=== PATIENT | male | born 1940 | race Caucasian/White ===

== ENCOUNTER 2020-03-07 11:43 | Outpatient (REF) | payer MEDICARE, SELFPAY | END 2020-03-07 11:44 | disposition home or self-care (01) | LOC: HO.LAB 11:43 | PROVIDERS: PCP Internal Medicine; Visit Provider Internal Medicine | DX: Z20.828 Contact with and (suspected) exposure to other viral communicable diseases (principal) | CPT/HCPCS: C9803; U0003 ==

== ENCOUNTER → 2020-03-17 12:55 | Outpatient (BNVA) | payer MEDICARE, SELFPAY | PROVIDERS: Visit Provider Internal Medicine Gastroenterology | DX: D50.9 Iron deficiency anemia, unspecified (principal) | CPT/HCPCS: Q3014 ==

== ENCOUNTER 2020-06-08 09:09 | Outpatient (RCR) | payer MEDICARE, SELFPAY ==
--- NOTE | ~2020-06-08 | XR_ITS ---
EXAMINATION: XR CALCANEUS, LEFT CLINICAL INFORMATION: Nonhealing wounds. COMPARISON: None TECHNIQUE: Lateral and axial views of the left calcaneus were obtained. FINDINGS: The bones and soft tissues are normal. No fracture. Alignment is anatomic. Joint spaces are maintained. No enthesopathic spurs are evident at the calcaneus. No bony erosive changes. There is vascular calcification. XR/XR calcaneus LT min 2V IMPRESSION: Unremarkable calcaneus with no bony erosive changes. The soft tissues are normal except for vascular calcification.
[2020-07-11 13:11] LABS: MANUAL DIFF FLAG NO
[2020-07-11 13:16] LABS: Basophils Absolute Auto 0.1 X10*3/uL (0.0-0.2); Basophils Percent Auto 0.6 % (0-2); Eosinophils Absolute Auto 0.3 X10*3/uL (0.0-0.4); Eosinophils Percent Auto 2.7 % (0-4); Hematocrit 35.7 % (42-52); Hemoglobin 11.3 g/dl (14.0-18.0); Imm Gran Abs Auto 0.05 X10*3/uL (0.00-0.03); Imm Gran Pct Auto 0.5 % (0.0-0.4); Lymphocytes Absolute Auto 1.2 X10*3/uL (1.2-4.9); Mean Corpuscular HGB Conc 31.7 g/dl (31.0-36.0); Mean Corpuscular Hemoglobin 28.7 pg (27.0-33.0); Mean Corpuscular Volume 90.6 fL (80-98); Mean Platelet Volume 9.8 fL (9.4-12.4); Monocytes Absolute Auto 0.7 X10*3/uL (0.1-1.2); Monocytes Percent Auto 7.8 % (2-11); Neutrophils Percent Auto 75.4 % (45-73); Platelet Count 333 X10*3/uL (160-400); Red Blood Count 3.94 X10*6/uL (4.60-5.80); Red Cell Distribution Width 14.6 % (11.0-16.0); White Blood Count 9.3 X10*3/uL (4.8-10.8)
[2020-07-11 13:38] LABS: Estimated Average Glucose 128 mg/dL; Hemoglobin A1c % 6.1 %
[2020-07-11 13:47] LABS: Anion Gap 13 (12-20); Blood Urea Nitrogen 16 mg/dL (9-16); C Reactive Protein 3.16 mg/dL (< or = 0.50); Carbon Dioxide 25 mmol/L (22-29); Chloride 105 mmol/L (96-108); Estimated Glomerular Filt Rate > 60; Glucose Random 209 mg/dL (60-115); Potassium 4.1 mmol/L (3.3-5.1); Sodium 139 mmol/L (135-145)
[2020-07-11 14:17] LABS: Erythrocyte Sedimentation Rate 77 MM/HR (0-15)
[2020-09-26 14:59] LABS: MANUAL DIFF FLAG NO
[2020-09-26 15:06] LABS: Basophils Absolute Auto 0.1 X10*3/uL (0.0-0.2); Basophils Percent Auto 0.7 % (0-2); Eosinophils Absolute Auto 0.3 X10*3/uL (0.0-0.4); Eosinophils Percent Auto 2.6 % (0-4); Hemoglobin 10.2 g/dl (14.0-18.0); Imm Gran Abs Auto 0.11 X10*3/uL (0.00-0.03); Imm Gran Pct Auto 0.9 % (0.0-0.4); Lymphocytes Absolute Auto 1.8 X10*3/uL (1.2-4.9); Lymphocytes Percent Auto 15.9 % (20-40); Mean Corpuscular HGB Conc 31.9 g/dl (31.0-36.0); Mean Corpuscular Hemoglobin 27.7 pg (27.0-33.0); Mean Platelet Volume 9.9 fL (9.4-12.4); Monocytes Absolute Auto 0.8 X10*3/uL (0.1-1.2); Monocytes Percent Auto 7.1 % (2-11); Neutrophils Absolute Auto 8.4 X10*3/uL (2.0-8.3); Neutrophils Percent Auto 72.8 % (45-73); Platelet Count 410 X10*3/uL (160-400); Red Blood Count 3.68 X10*6/uL (4.60-5.80); Red Cell Distribution Width 15.8 % (11.0-16.0); White Blood Count 11.6 X10*3/uL (4.8-10.8)
[2020-09-26 15:14] LABS: Estimated Average Glucose 137 mg/dL; Hemoglobin A1c % 6.4 %
[2020-09-26 15:33] LABS: Anion Gap 14 (12-20); Blood Urea Nitrogen 21 mg/dL (9-16); C Reactive Protein 3.26 mg/dL (< or = 0.50); Calcium 9.3 mg/dL (8.4-10.2); Carbon Dioxide 26 mmol/L (22-29); Chloride 106 mmol/L (96-108); Estimated Glomerular Filt Rate 55; Glucose Random 118 mg/dL (60-115); Potassium 4.7 mmol/L (3.3-5.1); Sodium 141 mmol/L (135-145)
[2020-09-26 15:40] LABS: Erythrocyte Sedimentation Rate 75 MM/HR (0-15)
== END 2021-01-23 16:07 | disposition home or self-care (01) ==
LOC: HO.WCC 09:09
PROVIDERS: Referring Provider Physician Assistant; Visit Provider Surgery
DX: Z09 Encounter for follow-up examination after completed treatment for conditions other than malignant neoplasm (principal); E11.22 Type 2 diabetes mellitus with diabetic chronic kidney disease; I12.9 Hypertensive chronic kidney disease with stage 1 through stage 4 chronic kidney disease, or unspecified chronic kidney disease; N18.30 Chronic kidney disease, stage 3 unspecified; Z87.891 Personal history of nicotine dependence; Z95.0 Presence of cardiac pacemaker; Z86.31 Personal history of diabetic foot ulcer
CPT/HCPCS: 11042; 11043; 11044; 36415; 73650; 80048; 83036; 84134; 85025; 85652; 86140; 87071; 87077; 87186; 87205; 88304; 88311; 97597; 97605; 99202; 99212; 99214

== ENCOUNTER 2020-06-11 08:18 | Inpatient (IN) | payer MEDICARE, SELFPAY ==
--- NOTE | ~2020-06-11 | NM_ITS ---
EXAMINATION: RENAL DYNAMIC IMAGING STUDY WITH LASIX CLINICAL INFORMATION: Left hydronephrosis. COMPARISON: No previous radionuclide renal scan is available for comparison. The diagnostic CT scan of the abdomen and pelvis, dated 06/12/2020, is available for comparison. TECHNIQUE: Serial gamma scintillation camera images were obtained over the posterior trunk during the initial transit and subsequent distribution of a bolus intravenous injection of 10 mCi of Tc-99m DTPA. At 4029 minutes later, 40 mg of Lasix was administered intravenously and an additional 30 minutes of images obtained. FINDINGS: Initial rapid sequence images show prompt, but mildly diminished perfusion to both kidneys as evidenced by significantly less intense activity in the kidneys, compared to the spleen. Subsequent sequential static images obtained up to 30 minutes show fair to good concentration bilaterally. There is a moderate medullary void present in the mid left kidney and this does not appear to show excretory activity at any time during the study. Excretory activity is visualized superior and inferior to this, likely calyceal in location. Excretory activity is visualized bilaterally by 3 to 4 minutes post injection. Following Lasix administration, there is continued clearance of activity from both renal collecting systems. At the end of the study there is almost no activity in either renal collecting system. There is almost no activity in the urinary bladder also, likely due to drainage via a Cao catheter which is visible on the CT scan performed on 06/12/2020, 1 day prior to this study. The T-1/2 washout times following Lasix administration are: Left 6.2 minutes and right 8.8 minutes. The relative function of the two kidneys based on the 2-3 minute images are: Left 48% and right 52%. NM/NM renal flow w pharm int IMPRESSION: LEFT KIDNEY: Mildly diminished perfusion and function. A medullary void is present within this kidney which does not show excretory activity, with excretory activity in adjacent calyces superior and inferior to the void. The findings suggest that this may represent a large peripelvic cyst rather than hydronephrosis. It is unusual for the entire renal collecting system not to communicate, and it is therefore an unusual finding on this study if there is calyceal activity that does not flow into a dilated renal pelvis. These findings could be further characterized with a CT urogram, if clinically indicated. RIGHT KIDNEY: Mildly diminished perfusion and function. No hydronephrosis or outflow obstruction is present.
--- NOTE | ~2020-06-11 | XR_ITS ---
EXAMINATION: XR CHEST CLINICAL INFORMATION: Cough COMPARISON: Chest x-ray 05/07/2019 TECHNIQUE: Frontal view of the chest was obtained. FINDINGS: Cardiac silhouette is normal in size. Lungs are adequately aerated. No lobar consolidation. No pleural effusion or pneumothorax. Degenerative changes of the spine. XR/XR chest 1V IMPRESSION: Stable examination demonstrating no acute pulmonary pathology.
--- NOTE | ~2020-06-11 | CT_ITS ---
EXAMINATION: CT ABDOMEN AND PELVIS WITH CONTRAST CLINICAL INFORMATION: Gram-negative bacteria COMPARISON: None TECHNIQUE: Multidetector volumetric images were obtained from the superior aspect of the liver through the pubic symphysis following administration of 75 mL of Omnipaque 350 intravenous contrast. Sagittal and coronal reformatted images were obtained on the technologist's workstation. Oral contrast: No This CT examination was performed using dose optimization techniques as appropriate, variously including the following: *Automated exposure control *Adjustment of mA and/or kV according to patient size (this includes techniques or standardized protocols for targeted exams where dose is matched to indication/reason for exam; i.e. extremities or head) *Use of iterative reconstruction technique DLP: 611 mGy-cm FINDINGS: LUNG BASES: Coronary artery calcification. Atelectasis. No focal consolidation. No pleural effusion or pneumothorax. LIVER, GALLBLADDER, AND BILIARY TREE: There is a nodular hepatic contour consistent with cirrhosis. No suspicious focal liver lesion. The gallbladder is unremarkable with no evidence of radiopaque gallstones, gallbladder wall thickening, or obvious pericholecystic inflammatory changes. Small volume of ascites is present. PANCREAS: Diffuse pancreatic atrophy. No mass or peripancreatic inflammatory changes. SPLEEN: Splenomegaly, up to 16 cm anterior to posterior. No focal lesion seen. ADRENAL GLANDS: Unremarkable. KIDNEYS AND URETERS: Water density bilateral renal cysts are seen; no imaging follow-up recommended. There is severe left hydronephrosis though the left ureter is nondilated, suggesting a ureteropelvic junction obstruction. BLADDER: Cao catheter in a decompressed urinary bladder. GASTROINTESTINAL TRACT: Stomach and small bowel are nondilated. No right lower quadrant inflammatory changes to suggest appendicitis. There is a large volume of stool throughout the colon. There is a very large volume of stool in the rectum with perirectal wall thickening and subtle perirectal fat stranding. No findings to suggest colitis or diverticulitis. ABDOMINAL WALL: There is a small amount of fat in the inguinal canals bilaterally. LYMPH NODES: Normal. VASCULAR: Circumferential calcified atherosclerotic changes of the aorta. Portal veins and superior mesenteric vein enhance normally. There are esophageal, gastric, and splenic varices. PELVIC VISCERA: Normal prostate. OSSEOUS STRUCTURES: Severe multilevel degenerative changes of the thoracolumbar spine. There is an X-Stop device between the posterior spinous processes of L3-L4. There are degenerative changes of the sacroiliac joints. Left hip arthroplasty. CT/CT abdomen pelvis w con IMPRESSION: There is a large volume of stool throughout the colon suggesting constipation. There is a very large volume of stool in the rectum with perirectal wall thickening and subtle perirectal fat stranding suggesting stercoral colitis. There is a nodular hepatic contour consistent with cirrhosis. Small volume of ascites is present. There is splenomegaly and varices consistent with portal hypertension. Severe left hydronephrosis with an appearance suggesting a left ureteropelvic junction obstruction.
[2020-06-11 08:21] VITALS: BP 120/69; PULSE 120; RESP 16; TEMP 36.3; O2SAT 100; BMI 24.6
--- NOTE | 2020-06-11 08:49 | ED.MALEGU ---
HPI - Male Genitourinary General Chief complaint: Urogenital-Male Stated complaint: cath issues Time Seen by Provider: 06/11/20 08:39 History of Present Illness HPI Narrative: This is a 79 years old male presented to the emergency department with the catheter problem. He states that the catheter was changed yesterday by RN he since then he has been bleeding unable to void completely. Patient denies any fever, vomiting diarrhea. He has history of diabetes and BPH Related Data Home Medications Medication Instructions Recorded Confirmed metoprolol tartrate 25 mg tablet 25 mg PO BID 03/17/20 03/17/20 simvastatin 40 mg tablet 40 mg PO QPM 03/17/20 03/17/20 Augmentin 875,125 mg PO BID 06/11/20 06/11/20 Colace 100 mg PO PRN 06/11/20 Nexium 24HR 06/11/20 cyclobenzaprine 1 tab PO TID 06/11/20 06/11/20 dulaglutide [Trulicity] 0.5 ml SUBCUT QWEEK 06/11/20 06/11/20 glipizide 2.5 mg PO BID 06/11/20 06/11/20 senna 8.6 mg PO PRN 06/11/20 Allergies Allergy/AdvReac Type Severity Reaction Status Date / Time lisinopril [LISINOPRIL] Allergy Severe ANGIOEDEMA Verified 06/11/20 08:21 Review of Systems Review of Systems: Yes all other systems are reviewed and are negative [facility] Past Medical History Medical History (Updated 06/11/20 @ 16:05 by Darien Castillo MD) Diabetes Hyperlipidemia Hypertension Iron deficiency anemia Urinary retention Surgical History History of back surgery History of esophagogastroduodenoscopy History of left hip replacement Hx of colonoscopy Social History Social History Alcohol intake: never Smoking Status: Former smoker Tobacco Type: Cigarette Use of substances other than those prescribed or required for medical reasons: No Advance Directives: No Advance Directives Information Provided: Yes Physical Exam Vital Signs: Vital Signs: Last Vital Signs Temp 98.0 F 06/11/20 11:33 Pulse 111 H 06/11/20 11:33 Resp 18 06/11/20 11:33 BP 150/84 H 06/11/20 11:33 Pulse Ox 99 06/11/20 11:33 Body Mass Index 24.6 Const: General: cooperative, comfortable and no acute distress Orientation/consciousness: oriented to person, oriented to place and oriented to time HENMT: Head: Yes normal to inspection Ears: external ears normal General nose exam: Normal external nose present Face and sinus: Yes normal facial exam Mouth: Normal oral and palatal mucosa present Eyes: General: appearance normal, both eyes and all related structures Neck: Neck: Yes normal visual inspection and Yes full ROM Chest: Chest palpation & inspection: normal inspection of the chest and normal palpation of entire chest wall Resp: Effort & Inspection: normal respiratory effort Auscultation: clear to auscultation bilaterally Cardio: Rate: regular rate GI: Other: Soft no tenderness no guarding Inspection: Yes normal to inspection : Other: A catheter is in place there is blood in the bag, 16 Prydeinig Skin: General skin exam: elasticity normal and turgor normal Neuro: General: oriented to person, oriented to place and oriented to time Extrem: General: Yes normal to inspection, Yes full ROM and Yes capillary refill normal Course Reevaluation(s) Reevaluation #1: At this time the patient is doing much better, catheter was changed by RN, a 16 Prydeinig catheter was inserted 100 the patient was in urinary retention we will obtain more than 1 L of urine, the urine was clear. Anticipate discharge of the patient as well as the labs are back Reevaluation #2: Lab returned WBC elevated 21.6k, at this point I think it is reasonable to admit the patient for observation given the fact that the he is diabetic and given the fact that the is a 79 years old the with the recent manipulation with a urinary tract MDM - Male Genitourinary Lab Data Result diagrams: 06/11/20 09:09 06/11/20 09:09 Labs: Lab Results 06/11/20 06/11/20 06/11/20 Range/Units 09:09 09:09 09:09 WBC 21.6 H (4.8-10.8) X10*3/uL RBC 4.06 L (4.60-5.80) X10*6/uL Hgb 11.9 L (14.0-18.0) g/dl Hct 36.1 L (42-52) % MCV 88.9 (80-98) fL MCH 29.3 (27.0-33.0) pg MCHC 33.0 (31.0-36.0) g/dl RDW 14.6 (11.0-16.0) % Plt Count 546 H (160-400) X10*3/uL MPV 9.2 L (9.4-12.4) fL Immature Gran % (Auto) 0.6 H (0.0-0.4) % Neut % (Auto) 91.0 H (45-73) % Lymph % (Auto) 3.2 L (20-40) % [place] % (Auto) 4.9 (2-11) % Eos % (Auto) 0.1 (0-4) % Baso % (Auto) 0.2 (0-2) % Lymph # (Auto) 0.7 L (1.2-4.9) X10*3/uL [place] # (Auto) 1.1 (0.1-1.2) X10*3/uL Eos # (Auto) 0.0 (0.0-0.4) X10*3/uL Baso # (Auto) 0.1 (0.0-0.2) X10*3/uL Abs Immat Gran (auto) 0.13 H (0.00-0.03) X10*3/uL Absolute Neuts (auto) 19.6 H (2.0-8.3) X10*3/uL Absolute Nucleated RBC 0.000 (0.0-0.012) X10*3/uL Nucleated RBC % (auto) 0.0 (0.0-0.2) /100WBC Smear Tech's Comments VERIFIED PT 13.9 H (10.8-13.0) SEC INR 1.2 H (0.9-1.1) APTT 34.4 (24.1-38.0) SEC Sodium 131 L (135-145) mmol/L Potassium 4.2 (3.3-5.1) mmol/L Chloride 96 (96-108) mmol/L Carbon Dioxide 20 L (22-29) mmol/L Anion Gap 19 (12-20) BUN 34 H (9-16) mg/dL Creatinine 1.47 H (0.5-1.4) mg/dL Estim Creat Clear Calc 41.4 Estimated GFR 46 Random Glucose 273 H (60-115) mg/dL Lactic Acid (0.5-2.0) mmol/L Calcium 8.9 (8.4-10.2) mg/dL Total Bilirubin 1.0 (0.0-1.0) mg/dL AST 29 (5-37) U/L ALT 26 (0-40) U/L Alkaline Phosphatase 146 H (39-117) U/L Total Protein 6.1 L (6.5-8.0) g/dL Albumin 3.0 L (3.5-5.0) g/dL Urine Color Urine Appearance Urine pH (5.0-8.0) Ur Specific [place] (1.005-1.025) Urine Protein (NEG-TRACE) MG/DL Urine Glucose (UA) (NEG) MG/DL Urine Ketones (NEG) MG/DL Urine Blood (NEG) Urine Nitrite (NEG) Ur Leukocyte Esterase (NEG) Urine RBC (0) /HPF Urine WBC (0-4) /HPF Ur Squamous Epith Cells /LPF Urine Bacteria /LPF 06/11/20 06/11/20 Range/Units 09:11 09:57 WBC (4.8-10.8) X10*3/uL RBC (4.60-5.80) X10*6/uL Hgb (14.0-18.0) g/dl Hct (42-52) % MCV (80-98) fL MCH (27.0-33.0) pg MCHC (31.0-36.0) g/dl RDW (11.0-16.0) % Plt Count (160-400) X10*3/uL MPV (9.4-12.4) fL Immature Gran % (Auto) (0.0-0.4) % Neut % (Auto) (45-73) % Lymph % (Auto) (20-40) % [place] % (Auto) (2-11) % Eos % (Auto) (0-4) % Baso % (Auto) (0-2) % Lymph # (Auto) (1.2-4.9) X10*3/uL [place] # (Auto) (0.1-1.2) X10*3/uL Eos # (Auto) (0.0-0.4) X10*3/uL Baso # (Auto) (0.0-0.2) X10*3/uL Abs Immat Gran (auto) (0.00-0.03) X10*3/uL Absolute Neuts (auto) (2.0-8.3) X10*3/uL Absolute Nucleated RBC (0.0-0.012) X10*3/uL Nucleated RBC % (auto) (0.0-0.2) /100WBC Smear Tech's Comments PT (10.8-13.0) SEC INR (0.9-1.1) APTT (24.1-38.0) SEC Sodium (135-145) mmol/L Potassium (3.3-5.1) mmol/L Chloride (96-108) mmol/L Carbon Dioxide (22-29) mmol/L Anion Gap (12-20) BUN (9-16) mg/dL Creatinine (0.5-1.4) mg/dL Estim Creat Clear Calc Estimated GFR Random Glucose (60-115) mg/dL Lactic Acid 1.9 (0.5-2.0) mmol/L Calcium (8.4-10.2) mg/dL Total Bilirubin (0.0-1.0) mg/dL AST (5-37) U/L ALT (0-40) U/L Alkaline Phosphatase (39-117) U/L Total Protein (6.5-8.0) g/dL Albumin (3.5-5.0) g/dL Urine Color BROWN Urine Appearance HAZY Urine pH 7.0 (5.0-8.0) Ur Specific [place] 1.015 (1.005-1.025) Urine Protein 2+ H (NEG-TRACE) MG/DL Urine Glucose (UA) NEG (NEG) MG/DL Urine Ketones NEG (NEG) MG/DL Urine Blood 3+ H (NEG) Urine Nitrite NEG (NEG) Ur Leukocyte Esterase 2+ H (NEG) Urine RBC TNTC H (0) /HPF Urine WBC 50-75 H (0-4) /HPF Ur Squamous Epith Cells NONE /LPF Urine Bacteria NONE /LPF Discharge Plan Discharge Clinical Impression: Acute UTI, Cao catheter problem Patient Disposition: Admitted As Inpatient
[2020-06-11 09:26] LABS: Basophils Absolute Auto 0.1 X10*3/uL (0.0-0.2); Basophils Percent Auto 0.2 % (0-2); Eosinophils Percent Auto 0.1 % (0-4); Hematocrit 36.1 % (42-52); Hemoglobin 11.9 g/dl (14.0-18.0); Imm Gran Abs Auto 0.13 X10*3/uL (0.00-0.03); Imm Gran Pct Auto 0.6 % (0.0-0.4); Lymphocytes Absolute Auto 0.7 X10*3/uL (1.2-4.9); Lymphocytes Percent Auto 3.2 % (20-40); MANUAL DIFF FLAG SCAN; Mean Corpuscular Hemoglobin 29.3 pg (27.0-33.0); Mean Corpuscular Volume 88.9 fL (80-98); Mean Platelet Volume 9.2 fL (9.4-12.4); Monocytes Absolute Auto 1.1 X10*3/uL (0.1-1.2); Monocytes Percent Auto 4.9 % (2-11); Neutrophils Absolute Auto 19.6 X10*3/uL (2.0-8.3); Platelet Count 546 X10*3/uL (160-400); Red Blood Count 4.06 X10*6/uL (4.60-5.80); Red Cell Distribution Width 14.6 % (11.0-16.0); SCAN SMEAR FLAG 1; White Blood Count 21.6 X10*3/uL (4.8-10.8)
[2020-06-11 09:32] LABS: INTERNATIONAL NORM RATIO 1.2 (0.9-1.1); Prothrombin Time 13.9 SEC (10.8-13.0)
[2020-06-11 09:33] LABS: Glucose Urine UA NEG (NEG); Leukocyte Esterase Urine 2+ (NEG); Nitrite Urine NEG (NEG); Specific Gravity - Urine 1.015 (1.005-1.025); Urine Blood 3+ (NEG); Urine Ketones NEG (NEG); Urine Protein 2+ MG/DL (NEG-TRACE)
[2020-06-11 09:35] LABS: Partial Thromboplastin Time 34.4 SEC (24.1-38.0)
[2020-06-11] MEDS: Lidocaine HCl 2 % Urojet 10 ML JEL.PF.APP TOPICAL (09:35)
[2020-06-11 09:36] VITALS: BP 112/68; PULSE 112; RESP 17; TEMP 36.6; O2SAT 99
[2020-06-11 09:39] LABS: Appearance Urine HAZY; Color Urine BROWN
[2020-06-11 09:44] LABS: WBC Urine 50-75 /HPF (0-4)
[2020-06-11 09:45] LABS: RBC Urine TNTC /HPF (0)
[2020-06-11 09:48] LABS: Alanine Aminotransferase 26 U/L (0-40); Alkaline Phosphatase 146 U/L (39-117); Anion Gap 19 (12-20); Aspartate Amino Transferase 29 U/L (5-37); Blood Urea Nitrogen 34 mg/dL (9-16); Calcium 8.9 mg/dL (8.4-10.2); Carbon Dioxide 20 mmol/L (22-29); Chloride 96 mmol/L (96-108); Creatinine Clr Calc Pharmacy 41.4; Estimated Glomerular Filt Rate 46; Glucose Random 273 mg/dL (60-115); Potassium 4.2 mmol/L (3.3-5.1); Sodium 131 mmol/L (135-145); Total Protein 6.1 g/dL (6.5-8.0)
[2020-06-11 09:53] LABS: SLIDE REVIEW VERIFIED
[2020-06-11] MEDS: 0.9 % Sodium Chloride 1,000 ML 999 ML IVCONT (10:13)
[2020-06-11] MEDS: cefTRIAXone sodium 1 GM in 0.9 % Sodium Chloride 50 ML IV (10:44)
[2020-06-11 10:45] LABS: Lactic Acid 1.9 mmol/L (0.5-2.0)
[2020-06-11 10:46] VITALS: BP 152/87; PULSE 107; RESP 19; O2SAT 100
--- NOTE | 2020-06-11 10:48 | PC.NURSE ---
pt has wound on l foot for a few weeks, has seen wound care for this, does not appear infected
--- NOTE | 2020-06-11 11:19 | P.HPHOSP_ITS ---
History of Present Illness Date of Service: 06/11/20 Chief Complaint: hematuria This is a 79-year-old male with past medical history of hypertension, diabetes, hyperlipidemia, urinary retention secondary to COVID-19 infection and hospitalization status post chronic Cao presents to the hospital with complaints of hematuria and significant pain about 10/10, difficult to sleep due to the pain at Cao cath insertion. Patient reports that he has had a Cao catheter in place since falling L to COVID-19 about 3-4 months ago, he developed urinary retention and has had this cough Cao catheter. Yesterday and nurse came to his house change the Cao catheter and ever since change in his folic catheter he has not been able to urinate had significant pain, and was bleeding without evidence of urine. He denies having had any symptoms prior to this, no hematuria prior to the change of the Cao catheter, no abdominal pain, no shortness of breath or chest pain, no fever or chills, no confusion, no lower extremity edema. Patient reports that he was in good health prior to the go Cao catheter being changed yesterday. On arrival to the ED patient's vitals are significant for temp of 97.4?, heart rate of 120, respiratory rate of 16, blood pressure 120/69, satting 100% on room air. Labs are significant for CBC of 21, hemoglobin of 11.9 which is improved from previous, hematocrit 36.1, platelet of 546, PT of 13.9, INR of 1.2, sodium of 131, BUN of 34, creatinine of 1.47 which is increased from 1. 04 in April, UA positive for leukocyte Estrace, blood, urine WBC. His urinary catheter was replaced in the ED he is now feeling significant relief, with pain resolving. Past medical history is confirm with patient is as below Review of Systems Review of Systems: Yes all other systems are reviewed and are negative [facility] Medical History (Updated 06/11/20 @ 11:34 by Fabiana Kimbrough MD) Diabetes Hyperlipidemia Hypertension Iron deficiency anemia Urinary retention Pertinent family history: Significant for cancer in brother Surgical History History of back surgery History of esophagogastroduodenoscopy History of left hip replacement Hx of colonoscopy Social History Alcohol intake: never Smoking Status: Former smoker Tobacco Type: Cigarette Use of substances other than those prescribed or required for medical reasons: No Advance Directives: No Advance Directives Information Provided: Yes Meds Allergies Allergy/AdvReac Type Severity Reaction Status Date / Time lisinopril [LISINOPRIL] Allergy Severe ANGIOEDEMA Verified 06/11/20 08:21 Home Medications Medication Instructions Recorded Confirmed Last Taken Type metoprolol tartrate 25 mg tablet 25 mg PO BID 03/17/20 03/17/20 06/10/20 History simvastatin 40 mg tablet 40 mg PO QPM 03/17/20 03/17/20 06/10/20 History Augmentin 875,125 mg PO BID 06/11/20 06/11/20 06/10/20 History Colace 100 mg PO PRN 06/11/20 Unknown History Nexium 24HR 06/11/20 06/10/20 History cyclobenzaprine 1 tab PO TID 06/11/20 06/11/20 06/10/20 History dulaglutide [Trulicity] 0.5 ml SUBCUT QWEEK 06/11/20 06/11/20 06/05/20 History glipizide 2.5 mg PO BID 06/11/20 06/11/20 06/10/20 History senna 8.6 mg PO PRN 06/11/20 Unknown History Physical Exam Vital Signs and Narrative: Vital Signs: Last Vital Signs Temp 98 F 06/11/20 09:36 Pulse 107 H 06/11/20 10:46 Resp 19 06/11/20 10:46 BP 152/87 H 06/11/20 10:46 Pulse Ox 100 06/11/20 10:46 Body Mass Index 24.6 Const: General: cooperative and no acute distress Orientat ion/consciousness: patient oriented x3 Eyes: General: appearance normal, both eyes and all related structures Resp: Effort & Inspection: normal respiratory effort and able to speak in complete sentences Cardio: Rate: regular rate Rhythm: regular rhythm GI: Palpation (GI): Soft to palpation Auscultation: normal bowel sounds : Other: Cao catheter bag with bloody urine, no suprapubic pain, no flank pain Skin: General skin exam: no rashes or lesions noted Neuro: General: patient oriented x3 Cognition (Neuro): normal cognition Extrem: General: Yes normal to inspection and Yes no pedal edema Results Labs CBC and Chem 7: 06/11/20 09:09 06/11/20 09:09 Labs: Laboratory Results - last 24 hr 06/11/20 06/11/20 06/11/20 09:09 09:09 09:09 MCV 88.9 MCH 29.3 MCHC 33.0 RDW 14.6 Plt Count 546 H MPV 9.2 L Immature Gran % (Auto) 0.6 H Neut % (Auto) 91.0 H Lymph % (Auto) 3.2 L [place] % (Auto) 4.9 Eos % (Auto) 0.1 Baso % (Auto) 0.2 Lymph # (Auto) 0.7 L [place] # (Auto) 1.1 Eos # (Auto) 0.0 Baso # (Auto) 0.1 Abs Immat Gran (auto) 0.13 H Absolute Neuts (auto) 19.6 H Absolute Nucleated RBC 0.000 Nucleated RBC % (auto) 0.0 Smear Tech's Comments VERIFIED PT 13.9 H INR 1.2 H APTT 34.4 Anion Gap 19 Estim Creat Clear Calc 41.4 Estimated GFR 46 Random Glucose 273 H Lactic Acid Calcium 8.9 Total Bilirubin 1.0 AST 29 ALT 26 Alkaline Phosphatase 146 H Total Protein 6.1 L Albumin 3.0 L Urine Color Urine Appearance Urine pH Ur Specific [place] Urine Protein Urine Glucose (UA) Urine Ketones Urine Blood Urine Nitrite Ur Leukocyte Esterase Urine RBC Urine WBC Ur Squamous Epith Cells Urine Bacteria 06/11/20 06/11/20 09:11 09:57 MCV MCH MCHC RDW Plt Count MPV Immature Gran % (Auto) Neut % (Auto) Lymph % (Auto) [place] % (Auto) Eos % (Auto) Baso % (Auto) Lymph # (Auto) [place] # (Auto) Eos # (Auto) Baso # (Auto) Abs Immat Gran (auto) Absolute Neuts (auto) Absolute Nucleated RBC Nucleated RBC % (auto) Smear Tech's Comments PT INR APTT Anion Gap Estim Creat Clear Calc Estimated GFR Random Glucose Lactic Acid 1.9 Calcium Total Bilirubin AST ALT Alkaline Phosphatase Total Protein Albumin Urine Color BROWN Urine Appearance HAZY Urine pH 7.0 Ur Specific [place] 1.015 Urine Protein 2+ H Urine Glucose (UA) NEG Urine Ketones NEG Urine Blood 3+ H Urine Nitrite NEG Ur Leukocyte Esterase 2+ H Urine RBC TNTC H Urine WBC 50-75 H Ur Squamous Epith Cells NONE Urine Bacteria NONE Imaging Radiologist's Impressions: Impressions Chest X-Ray 06/11/20 09:48 IMPRESSION: Stable examination demonstrating no acute pulmonary pathology. Assessment and Plan (1) Hematuria: Status: Acute (2) Acute UTI: Status: Acute (3) Hypertension: Status: Inactive (4) Hyperlipidemia: Status: Inactive (5) Diabetes mellitus: Status: Acute (6) DEON (acute kidney injury): Status: Acute This is a 79-year-old male with history of urinary retention status post Cao catheter who presents to the hospital after experiencing pain, urinary tension, and bloody urine output after the Cao catheter was changed. # hematuria - most likely traumatic due to Cao insertion - hemodynamically stable with no significant change in hemoglobin hematocrit - hematuria resolved after the Cao catheter was replaced in the ED - no longer is having any pain Plan: - continue to monitor H&H - if continues to have hematuria consider consulting urology -IV fluids # UTI - possibly secondary to instrumentation with Cao catheter - has leukocytosis, tachycardia - will start him on ceftriaxone IV - follow blood and urine cultures # DEON - possibly secondary urinary tension, and UTI - will start him on IV fluids - follow BMP # diabetes - low-dose sliding scale insulin - diabetic diet # HTN - elevated - pending medication or consolidation # HLD - continue statin DVT prophylaxis: SCDs
--- NOTE | 2020-06-11 11:31 | PC.NURSE ---
covid swab performed, loya emptied 1800ml hematuria noted
[2020-06-11 11:33] VITALS: BP 150/84; PULSE 111; RESP 18; TEMP 36.7; O2SAT 99
[2020-06-11 11:40] LABS: Glucose, Whole Blood 195 mg/dL (60-115)
[2020-06-11 11:57] LABS: COVID-19 Test Negative (Negative); IDNOW Serial# 9DD0AD1C
[2020-06-11] MEDS: 0.9 % Sodium Chloride 1,000 ML 100 ML IVCONT (14:14)
[2020-06-11] MEDS: Insulin Lispro 100 UNIT/ML 3 ML VIAL SUBCUT ×3 (14:14→21:43)
[2020-06-11] MEDS: Cyclobenzaprine HCl 10 MG TABLET PO ×2 (14:15→20:46)
--- NOTE | 2020-06-11 14:16 | PC.NURSE ---
patient a&ox3, monitoring specialist intact, pt medicated per order, pt ate dm lunch, no c/o pain or discomfort, will continue to monitor.
--- NOTE | 2020-06-11 15:09 | PC.NURSE ---
called floor to give report, RN in report will call back
[2020-06-11 17:05] VITALS: BP 149/69; PULSE 121; RESP 17; TEMP 36.6; O2SAT 99
[2020-06-11 17:31] LABS: Glucose, Whole Blood 159 mg/dL (60-115)
[2020-06-11] MEDS: 0.9 % Sodium Chloride Flush 3 ML SYRINGE IVFLUSH ×2 (17:37→20:47)
--- NOTE | 2020-06-11 18:28 | PC.NURSE ---
Patient up to unit from ED around 1700. Patient oriented to environment, call woodson in place. at bedside.
[2020-06-11 18:55] LABS: Anion Gap 16 (12-20); Blood Urea Nitrogen 23 mg/dL (9-16); Calcium 8.7 mg/dL (8.4-10.2); Carbon Dioxide 23 mmol/L (22-29); Chloride 100 mmol/L (96-108); Creatinine Clr Calc Pharmacy 63.4; Estimated Glomerular Filt Rate > 60; Glucose Random 177 mg/dL (60-115); Potassium 4.4 mmol/L (3.3-5.1); Sodium 135 mmol/L (135-145)
[2020-06-11 19:18] VITALS: BP 144/77; PULSE 136; RESP 16; TEMP 36.4; O2SAT 98
[2020-06-11 20:50] LABS: Glucose, Whole Blood 181 mg/dL (60-115)
[2020-06-12] VITALS (8 sets, daily range): BP systolic 90–158; BP diastolic 50–68; PULSE 67–137; RESP 16–18; TEMP 36.1–36.9; O2SAT 95–100
[2020-06-12] MEDS: Acetaminophen 325 MG TABLET 650 MG PO ×2 (00:49→21:32)
[2020-06-12 05:25] LABS: MANUAL DIFF FLAG NO
[2020-06-12 05:40] LABS: Basophils Absolute Auto 0.1 X10*3/uL (0.0-0.2); Basophils Percent Auto 0.2 % (0-2); Eosinophils Absolute Auto 0.1 X10*3/uL (0.0-0.4); Eosinophils Percent Auto 0.4 % (0-4); Hemoglobin 10.6 g/dl (14.0-18.0); Imm Gran Abs Auto 0.19 X10*3/uL (0.00-0.03); Imm Gran Pct Auto 0.9 % (0.0-0.4); Lymphocytes Absolute Auto 1.2 X10*3/uL (1.2-4.9); Lymphocytes Percent Auto 5.8 % (20-40); Mean Corpuscular HGB Conc 32.1 g/dl (31.0-36.0); Mean Corpuscular Hemoglobin 29.2 pg (27.0-33.0); Mean Corpuscular Volume 90.9 fL (80-98); Mean Platelet Volume 9.9 fL (9.4-12.4); Monocytes Absolute Auto 1.1 X10*3/uL (0.1-1.2); Monocytes Percent Auto 5.4 % (2-11); Neutrophils Absolute Auto 17.6 X10*3/uL (2.0-8.3); Neutrophils Percent Auto 87.3 % (45-73); Platelet Count 386 X10*3/uL (160-400); Red Blood Count 3.63 X10*6/uL (4.60-5.80); White Blood Count 20.2 X10*3/uL (4.8-10.8)
[2020-06-12 06:14] LABS: Anion Gap 19 (12-20); Blood Urea Nitrogen 24 mg/dL (9-16); Calcium 8.1 mg/dL (8.4-10.2); Carbon Dioxide 18 mmol/L (22-29); Chloride 103 mmol/L (96-108); Creatinine Clr Calc Pharmacy 56.3; Estimated Glomerular Filt Rate > 60; Glucose Random 205 mg/dL (60-115); Potassium 3.8 mmol/L (3.3-5.1); Sodium 136 mmol/L (135-145)
[2020-06-12 07:33] LABS: Glucose, Whole Blood 253 mg/dL (60-115)
[2020-06-12] MEDS: Insulin Lispro 100 UNIT/ML 3 ML VIAL SUBCUT ×4 (08:24→20:33)
[2020-06-12] MEDS: Cyclobenzaprine HCl 10 MG TABLET PO ×3 (08:25→21:32)
[2020-06-12] MEDS: 0.9 % Sodium Chloride Flush 3 ML SYRINGE IVFLUSH ×2 (08:25→15:22)
[2020-06-12 09:10] LABS: Glucose Urine UA NEG (NEG); Leukocyte Esterase Urine 2+ (NEG); Nitrite Urine NEG (NEG); PH 5.5 (5.0-8.0); Specific Gravity - Urine 1.025 (1.005-1.025); UACC Culture Trigger YES; Urine Blood 3+ (NEG); Urine Ketones NEG (NEG); Urine Protein 2+ MG/DL (NEG-TRACE)
[2020-06-12 09:11] LABS: Appearance Urine HAZY; Color Urine YELLOW
[2020-06-12 09:40] LABS: Squamous Epithelial Cell Urine TRACE /LPF; WBC Urine TNTC /HPF (0-4)
[2020-06-12] MEDS: cefTRIAXone sodium 1 GM in 0.9 % Sodium Chloride 50 ML IV (10:55)
[2020-06-12 11:51] LABS: Glucose, Whole Blood 159 mg/dL (60-115)
[2020-06-12] MEDS: Piperacillin Sodium/Tazobactam 3.375 GM in 0.9 % Sodium Chloride 50 ML IV ×2 (12:05→17:08)
--- NOTE | 2020-06-12 12:12 | MHC.CM.PN ---
CM MET WITH PT WHO REPORTS HE LIVES AT HOME WITH HIS AND IS MOSTLY INDEPENDENT WITH CARE. PT REPORTS HE USES A WALKER AND NOW HAS A [facility] CATH WHICH HE STATES IS THE AFTERMATH OF HAVING COVID-19. PT REPORTS HE DOES HAVE A VNA FOR LONG TERM AND PT BUT HE CANNOT REMEMBER THE NAME OF THE AGENCY. HE DOES BELIEVE THE OFFICE IS IN [place]. IMM WAS DELIVERED PT WAS GOING TO BE DISCHARGED TODAY HOWEVER IT WAS CANCELLED. PTS SON, OLIVER ([phone]) WAS INFORMED VIA T/C. OLIVER REQUESTED A CLINICAL UPDATE AND THE REQUEST WAS FORWARDED TO THE MD. CURRENT DC PLAN IS HOME WITH RESUMPTION OF VNA SERVICES. CM LEFT MESSAGES WITH SEVERAL AGENCIES TO DETERMINE WHICH ONE PT IS ACTIVE WITH PTS FAMILY WILL TRANSPORT AT DC.
--- NOTE | 2020-06-12 16:10 | HO.PM.IMPN ---
Subjective Subjective Date of Service: 06/12/20 Interval History: Patient resting comfortably offers no complaints, urine is clear no recurrent bout of hematuria denies urinary frequency pain no abdominal pain no nausea vomiting. ROS General no headache ,no dizziness, no fever chills. CVS no chest pain, no palpitation. Respiratory no cough, no sputum production, no respiratory distress. Gastrointestinal no nausea, no vomiting, no abdominal pain Physical Exam Vital Signs: Vital Signs: Last Vital Signs Temp 97.3 F 06/12/20 15:15 Pulse 116 H 06/12/20 15:15 Resp 18 06/12/20 15:15 BP 158/64 H 06/12/20 15:15 Pulse Ox 99 06/12/20 15:15 Body Mass Index 24.6 General resting comfortably in no acute distress. Neck is supple no JVD. CVS regular rate rhythm, Respiratory lungs clear to auscultation, no respiratory distress, no wheeze, no rhonchi. Gastrointestinal abdomen soft, nontender, bowel sounds audible, no guarding , no rigidity. Extremities no edema. Neuro nonfocal Skin no rash Cao with clear urine Objective Data Current Medications Generic Name Dose Route Start Last Admin Trade Name Freq PRN Reason Stop Dose Admin Acetaminophen 650 mg 06/11/20 12:19 06/12/20 00:49 Acetaminophen 325 Mg Tablet PO 650 mg Q6H PRN Administration Pain, Mild (Pain Scale 1-3) Cyclobenzaprine HCl 10 mg 06/11/20 15:00 06/12/20 15:22 Cyclobenzaprine Hcl 10 Mg Tablet PO 10 mg TID JIL Administration Docusate Sodium 100 mg 06/11/20 12:19 Docusate Sodium 100 Mg Capsule PO DAILY PRN Constipation Piperacillin Sod/Tazobactam 50 mls @ 100 mls/hr 06/12/20 12:00 06/12/20 12:40 Sod 3.375 gm/ Sodium Chloride IV Infused Q6H [facility] Infusion Insulin Human Lispro 0 unit 06/11/20 11:30 06/12/20 11:56 Insulin Lispro 100 Unit/Ml 3 Ml Vial SUBCUT 2 unit QIDACHS JIL Administration Protocol Ondansetron HCl 4 mg 06/11/20 12:19 Ondansetron Hcl 4 Mg/2 Ml Vial IVPUSH Q8H PRN Nausea and Vomiting Sodium Chloride 3 ml 06/11/20 16:00 06/12/20 15:22 0.9 % Sodium Chloride Flush 3 Ml Syringe IVFLUSH 3 ml QSHIFT JIL Administration Labs CBC & Chem 7: 06/12/20 04:33 06/12/20 04:33 Microbiology Microbiology Results: Microbiology 06/11/20 09:57 Blood - Venous Blood Culture - Preliminary No growth after 24 hours. 06/11/20 10:02 Blood - Venous Blood Culture - Preliminary Assessment and Plan (1) Gram-negative bacteremia: Status: Acute (2) Cao catheter problem: Status: Acute (3) DEON (acute kidney injury): Status: Acute (4) Hematuria: Status: Acute (5) Diabetes mellitus: Status: Acute Assessment and Plan: 79-year-old male with history of urinary retention status post Cao catheter who presents to the hospital after experiencing pain, urinary tension, and bloody urine output after the Cao catheter was changed. # hematuria/urinary retention - most likely traumatic due to Cao insertion, hematuria resolved after Cao was replaced currently patient hemodynamically stable, hematocrit dropped but stable and close to his baseline Will continue to monitor H&H DC IV fluids Patient is scheduled for TURP procedure as outpatient # gram-negative bacteremia Questions source of infection urine vs GI , - 1/2 blood culture bottle positive for gram-negative rods, urinalysis showed no bacteria, will send urine for culture, will obtain CT abdomen and pelvis, place patient on IV Zosyn since patient has worsening leukocytosis No evidence of sepsis tachycardia likely related to not taking beta-stacey will follow final blood and urine cultures # DEON - possibly secondary urinary tension, and UTI, DEON resolved will DC IV fluid # diabetes - elevated blood sugars, continue low-dose sliding scale insulin and diabetic diet # HTN - fluctuating BP /pulse will resume metoprolol 25 b.i.d. # HLD - on Zocor at home will resume upon discharge DVT prophylaxis: SCDs
[2020-06-12 16:24] LABS: Glucose, Whole Blood 173 mg/dL (60-115)
[2020-06-12 20:35] LABS: Glucose, Whole Blood 191 mg/dL (60-115)
[2020-06-12] MEDS: iohexoL 350 MG/ML 75 ML INFUS..BTL IV (21:21)
[2020-06-12] MEDS: Metoprolol Tartrate 25 MG TABLET PO (21:32)
[2020-06-13] VITALS (7 sets, daily range): BP systolic 100–130; BP diastolic 51–67; PULSE 87–95; RESP 15–18; TEMP 35.7–36.7; O2SAT 98–100
[2020-06-13] MEDS: 0.9 % Sodium Chloride Flush 3 ML SYRINGE IVFLUSH ×4 (00:17→21:26)
[2020-06-13] MEDS: Piperacillin Sodium/Tazobactam 3.375 GM in 0.9 % Sodium Chloride 50 ML IV ×5 (00:17→23:06)
[2020-06-13] MEDS: Omeprazole 20 MG CAPSULE.DR PO (06:47)
[2020-06-13 07:05] LABS: MANUAL DIFF FLAG NO
[2020-06-13 07:44] LABS: Basophils Absolute Auto 0.1 X10*3/uL (0.0-0.2); Basophils Percent Auto 0.4 % (0-2); Eosinophils Absolute Auto 0.3 X10*3/uL (0.0-0.4); Eosinophils Percent Auto 2.3 % (0-4); Hematocrit 31.2 % (42-52); Imm Gran Abs Auto 0.09 X10*3/uL (0.00-0.03); Imm Gran Pct Auto 0.6 % (0.0-0.4); Lymphocytes Absolute Auto 0.9 X10*3/uL (1.2-4.9); Lymphocytes Percent Auto 6.4 % (20-40); Mean Corpuscular HGB Conc 32.1 g/dl (31.0-36.0); Mean Corpuscular Hemoglobin 29.4 pg (27.0-33.0); Mean Corpuscular Volume 91.8 fL (80-98); Mean Platelet Volume 9.5 fL (9.4-12.4); Monocytes Absolute Auto 0.8 X10*3/uL (0.1-1.2); Monocytes Percent Auto 5.6 % (2-11); Neutrophils Absolute Auto 12.4 X10*3/uL (2.0-8.3); Neutrophils Percent Auto 84.7 % (45-73); Platelet Count 318 X10*3/uL (160-400); Red Cell Distribution Width 15.2 % (11.0-16.0); White Blood Count 14.7 X10*3/uL (4.8-10.8)
[2020-06-13 08:15] LABS: Glucose, Whole Blood 126 mg/dL (60-115)
[2020-06-13] MEDS: Cyclobenzaprine HCl 10 MG TABLET PO ×3 (09:24→21:25)
[2020-06-13] MEDS: Metoprolol Tartrate 25 MG TABLET PO ×2 (09:24→21:26)
[2020-06-13 11:18] LABS: Glucose, Whole Blood 178 mg/dL (60-115)
[2020-06-13] MEDS: Insulin Lispro 100 UNIT/ML 3 ML VIAL SUBCUT ×2 (11:29→17:26)
--- NOTE | 2020-06-13 14:25 | MHC.CM.PN ---
EMR REVIEWED, PER HOSPITALIST PT POSITIVE FOR GRAM NEG BACTEREMIA, PT ON IV ABX, NEEDS UROLOGY CONSULT,HOME NO PLAN FOR DISCHARGE TODAY. CM WILL CONT TO MONITOR PT FOR D/C NEEDS. DISCHARGE PLAN: HOME W/RESUMPTION VNA SERVICES, FAMILY TO TRANSPORT.
--- NOTE | 2020-06-13 14:42 | MHC.CM.PN ---
CM ATTEMPTED TO CONTACT PT'S AT 2:41PM ([phone]) TO REQUEST NAME OF PT'S VNA, NO ANSWER, MESSAGE LEFT W/CM CONTACT INFO.
--- NOTE | 2020-06-13 15:14 | HO.PM.IMPN ---
Subjective Subjective Date of Service: 06/13/20 Interval History: Patient resting comfortably offers no acute complaints of abdominal pain, no fevers, no chills, Cao catheter draining clear urine. ROS General no headache ,no dizziness, no fever chills. CVS no chest pain, no palpitation. Respiratory no cough, no sputum production, no respiratory distress. Gastrointestinal no nausea, no vomiting, no abdominal pain Physical Exam Vital Signs: Vital Signs: Last Vital Signs Temp 96.8 F 06/13/20 12:00 Pulse 87 06/13/20 12:00 Resp 17 06/13/20 12:00 BP 106/57 L 06/13/20 12:00 Pulse Ox 100 06/13/20 12:00 Body Mass Index 24.6 General resting comfortably in no acute distress. Neck is supple no JVD. CVS regular rate rhythm, Respiratory lungs clear to auscultation, no respiratory distress, no wheeze, no rhonchi. Gastrointestinal abdomen soft, nontender, bowel sounds audible, no guarding , no rigidity. Extremities no edema. Neuro nonfocal Skin no rash Cao with clear urine Objective Data Current Medications Generic Name Dose Route Start Last Admin Trade Name Freq PRN Reason Stop Dose Admin Acetaminophen 650 mg 06/11/20 12:19 06/12/20 21:32 Acetaminophen 325 Mg Tablet PO 650 mg Q6H PRN Administration Pain, Mild (Pain Scale 1-3) Cyclobenzaprine HCl 10 mg 06/11/20 15:00 06/13/20 09:24 Cyclobenzaprine Hcl 10 Mg Tablet PO 10 mg TID JIL Administration Docusate Sodium 100 mg 06/11/20 12:19 Docusate Sodium 100 Mg Capsule PO DAILY PRN Constipation Piperacillin Sod/Tazobactam 50 mls @ 100 mls/hr 06/12/20 12:00 06/13/20 12:01 Sod 3.375 gm/ Sodium Chloride IV Infused Q6H [facility] Infusion Insulin Glargine 6 unit 06/12/20 21:00 06/12/20 20:33 Insulin Glargine,Hum.Rec.Anlog 100 Unit/Ml 10 Ml Vial SUBCUT Not Given BEDTIME [facility] Insulin Human Lispro 0 unit 06/11/20 11:30 06/13/20 11:29 Insulin Lispro 100 Unit/Ml 3 Ml Vial SUBCUT 2 unit QIDACHS [facility] Administration Protocol Metoprolol Tartrate 25 mg 06/12/20 21:00 06/13/20 09:24 Metoprolol Tartrate 25 Mg Tablet PO 25 mg BID [facility] Administration Protocol Omeprazole 20 mg 06/13/20 06:30 06/13/20 06:47 Omeprazole 20 Mg Capsule. PO 20 mg DAILY@0630 [facility] Administration Ondansetron HCl 4 mg 06/11/20 12:19 Ondansetron Hcl 4 Mg/2 Ml Vial IVPUSH Q8H PRN Nausea and Vomiting Sodium Chloride 3 ml 06/11/20 16:00 06/13/20 09:24 0.9 % Sodium Chloride Flush 3 Ml Syringe IVFLUSH 3 ml QSHIFT [facility] Administration Labs CBC & Chem 7: 06/13/20 06:57 06/12/20 04:33 Microbiology Microbiology Results: Microbiology 06/11/20 09:57 Blood - Venous Blood Culture - Preliminary No growth after 48 hours. 06/11/20 10:02 Blood - Venous Blood Culture - Preliminary Gram negative ke 06/12/20 18:34 Urine Cao Port Urine Culture - Preliminary Culture in progress. 06/12/20 08:38 Urine clean catch - Clean Catch Midstream Urine Culture - Final Assessment and Plan (1) Gram-negative bacteremia: Status: Acute (2) Cao catheter problem: Status: Acute (3) DEON (acute kidney injury): Status: Acute (4) Hematuria: Status: Acute (5) Diabetes mellitus: Status: Acute (6) Back pain: Status: Acute (7) Hydronephrosis, left: Status: Acute (8) Acute UTI: Status: Acute Assessment and Plan: 79-year-old male with history of urinary retention status post Cao catheter who presents to the hospital after experiencing pain, urinary tension, and bloody urine output after the Cao catheter was changed. # hematuria/urinary retention most likely traumatic due to Cao insertion/infection, hematuria resolved, patient hemodynamically stable, hematocrit dropped but stable and close to his baseline monitor H&H # gram-negative bacteremia related to UTI and obstruction at left ureteropelvic junction 1/2 blood culture bottle positive for gram-negative rods, urine culture positive for same, continue IV Zosyn day 2 No evidence of sepsis tachycardia likely related to not taking beta-stacey will follow final blood and urine cultures Consulted Urology due to severe left hydronephrosis # DEON - possibly secondary urinary retention and UTI, DEON resolved s/p IV fluid # constipation Noted on CT abdomen, Will treat with lactulose. # diabetes - stable blood sugars, continue low-dose sliding scale insulin and diabetic diet # HTN - soft BP continue metoprolol 25 b.i.d. reduce dose with any drop in blood pressure # HLD - on Zocor at home will resume upon discharge DVT prophylaxis: SCDs
[2020-06-13] MEDS: Lactulose 20 GM/30 ML SOLUTION 15 GM PO (15:58)
[2020-06-13 16:47] LABS: Glucose, Whole Blood 208 mg/dL (60-115)
[2020-06-13] MEDS: Finasteride 5 MG TABLET PO (18:22)
[2020-06-13 21:08] LABS: Glucose, Whole Blood 162 mg/dL (60-115)
--- NOTE | 2020-06-13 21:09 | P.CNID_ITS ---
History of Present Illness Data of Consult Service Date: 06/13/20 Requesting physician: Juany Nation Primary Care Provider: Kris Pierce MD HPI Reason for consult: bacteremia He presents to hospital with hematuria and chills. He has Cao and has had difficulty with changing catheter and had hematuria. There is concern over obstruction left and Cao catheter urine is yellow now Review of Systems Review of Systems: Yes all other systems are reviewed and are negative PMF Past Medical History Medical History (Updated 06/14/20 @ 14:27 by Alexander Da Silva MD) Diabetes Hyperlipidemia Hypertension Iron deficiency anemia Ulcer of left heel Urinary retention Family History Family history: reviewed and not pertinent Surgical History Surgical History History of back surgery History of esophagogastroduodenoscopy History of left hip replacement Hx of colonoscopy Social History Social History Household Members: Significant Other Housing: House Do you presently have visiting nurse or other home services: Yes Alcohol intake: never Smoking Status: Former smoker Tobacco Type: Cigarette Use of substances other than those prescribed or required for medical reasons: No Currently Displaying Signs/Symptoms of Drug Intoxication Withdrawal: No Have you been hit, kicked, punched, or otherwise hurt by someone within the past year? If so, by whom?: No Do you feel safe in your current relationship?: Yes Is there a partner from a previous relationship who is making you feel unsafe now?: No Are you made to feel afraid or neglected: No Advance Directives: No Advance Directives Information Provided: Yes Do you have thoughts of harming others: None Do you have a plan to hurt others: No Plan Recently lost weight without trying: No service: No Current occupational status: retired Meds Allergies Allergy/AdvReac Type Severity Reaction Status Date / Time lisinopril [LISINOPRIL] Allergy Severe ANGIOEDEMA Verified 06/11/20 08:21 Active Medications: Current Medications Generic Name Dose Route Start Last Admin Trade Name Freq PRN Reason Stop Dose Admin Acetaminophen 650 mg 06/11/20 12:19 06/12/20 21:32 Acetaminophen 325 Mg Tablet PO 650 mg Q6H PRN Administration Pain, Mild (Pain Scale 1-3) Cyclobenzaprine HCl 10 mg 06/11/20 15:00 06/13/20 15:58 Cyclobenzaprine Hcl 10 Mg Tablet PO 10 mg TID [facility] Administration Docusate Sodium 100 mg 06/11/20 12:19 Docusate Sodium 100 Mg Capsule PO DAILY PRN Constipation Doxazosin Mesylate 4 mg 06/13/20 21:00 Doxazosin Mesylate 2 Mg Tablet PO BEDTIME [facility] Protocol Finasteride 5 mg 06/13/20 18:15 06/13/20 18:22 Finasteride 5 Mg Tablet PO 5 mg DAILY [facility] Administration Piperacillin Sod/Tazobactam 50 mls @ 100 mls/hr 06/12/20 12:00 06/13/20 18:07 Sod 3.375 gm/ Sodium Chloride IV Infused Q6H [facility] Infusion Insulin Glargine 6 unit 06/12/20 21:00 06/12/20 20:33 Insulin Glargine,Hum.Rec.Anlog 100 Unit/Ml 10 Ml Vial SUBCUT Not Given BEDTIME [facility] Insulin Human Lispro 0 unit 06/11/20 11:30 06/13/20 17:26 Insulin Lispro 100 Unit/Ml 3 Ml Vial SUBCUT 4 unit QIDACHS [facility] Administration Protocol Metoprolol Tartrate 25 mg 06/12/20 21:00 06/13/20 09:24 Metoprolol Tartrate 25 Mg Tablet PO 25 mg BID [facility] Administration Protocol Omeprazole 20 mg 06/13/20 06:30 06/13/20 06:47 Omeprazole 20 Mg Capsule.Dr PO 20 mg DAILY@0630 [facility] Administration Ondansetron HCl 4 mg 06/11/20 12:19 Ondansetron Hcl 4 Mg/2 Ml Vial IVPUSH Q8H PRN Nausea and Vomiting Sodium Chloride 3 ml 06/11/20 16:00 06/13/20 15:58 0.9 % Sodium Chloride Flush 3 Ml Syringe IVFLUSH 3 ml QSHIFT [facility] Administration Home Medications Medication Instructions Recorded Confirmed Last Taken Type metoprolol tartrate 25 mg tablet 25 mg PO BID 03/17/20 03/17/20 06/10/20 History simvastatin 40 mg tablet 40 mg PO QPM 03/17/20 03/17/20 06/10/20 History Augmentin 875,125 mg PO BID 06/11/20 06/11/20 06/10/20 History Colace 100 mg PO PRN 06/11/20 Unknown History Nexium 24HR 06/11/20 06/10/20 History cyclobenzaprine 1 tab PO TID 06/11/20 06/11/20 06/10/20 History dulaglutide [Trulicity] 0.5 ml SUBCUT QWEEK 06/11/20 06/11/20 06/05/20 History glipizide 2.5 mg PO BID 06/11/20 06/11/20 06/10/20 History senna 8.6 mg PO PRN 06/11/20 Unknown History Physical Exam Vital Signs: Vital Signs: Last Vital Signs Temp 96.6 F L 06/13/20 20:00 Pulse 91 06/13/20 20:00 Resp 15 06/13/20 20:00 BP 114/63 06/13/20 20:00 Pulse Ox 99 06/13/20 20:00 Body Mass Index 24.6 Const: General: cooperative HENMT: Head: Yes normal to inspection Mouth: Normal oral and palatal mucosa present Resp: Effort & Inspection: normal respiratory effort Cardio: Rate: regular rate Rhythm: regular rhythm GI: Palpation (GI): Soft to palpation and nontender : General: Yes no CVA tenderness Back/Spine/Pelvis: Back: no CVA tenderness Skin: General skin exam: no rashes or lesions noted Results Labs CBC & Chem 7: 06/14/20 05:45 06/14/20 05:45 Labs: Short CBC 06/13/20 Range/Units 06:57 WBC 14.7 H (4.8-10.8) X10*3/uL Hgb 10.0 L (14.0-18.0) g/dl Hct 31.2 L (42-52) % Plt Count 318 (160-400) X10*3/uL Microbiology Microbiology Results: Microbiology 06/11/20 09:57 Blood - Venous Blood Culture - Preliminary No growth after 48 hours. 06/11/20 10:02 Blood - Venous Blood Culture - Preliminary Gram negative ke 06/12/20 18:34 Urine Cao Port Urine Culture - Preliminary Culture in progress. 06/12/20 08:38 Urine clean catch - Clean Catch Midstream Urine Culture - Final Assessment and Plan (1) Hydronephrosis, left: Status: Acute (2) Gram-negative bacteremia: Problem details: There is concern over E coli, Klebsiella,less likely Pseudomonas He has improvement Cao urine Status: Acute Would continue Zosyn at this time Urology input Would await final culture and adjust meds as needed
[2020-06-13] MEDS: Doxazosin Mesylate 2 MG TABLET 4 MG PO (21:25)
[2020-06-13] MEDS: Insulin Glargine,Hum.rec.anlog 100 UNIT/ML 10 ML VIAL 6 UNIT SUBCUT (21:26)
[2020-06-14] VITALS (8 sets, daily range): BP systolic 102–127; BP diastolic 64–68; PULSE 87–98; RESP 16–20; TEMP 36.4–36.9; O2SAT 97–100; BMI 24.6
[2020-06-14] MEDS: Omeprazole 20 MG CAPSULE.DR PO (05:17)
[2020-06-14] MEDS: Piperacillin Sodium/Tazobactam 3.375 GM in 0.9 % Sodium Chloride 50 ML IV ×4 (05:17→23:22)
[2020-06-14 06:06] LABS: MANUAL DIFF FLAG NO
[2020-06-14 06:25] LABS: Basophils Absolute Auto 0.1 X10*3/uL (0.0-0.2); Basophils Percent Auto 0.5 % (0-2); Eosinophils Absolute Auto 0.3 X10*3/uL (0.0-0.4); Hematocrit 29.9 % (42-52); Hemoglobin 9.5 g/dl (14.0-18.0); Imm Gran Abs Auto 0.04 X10*3/uL (0.00-0.03); Imm Gran Pct Auto 0.4 % (0.0-0.4); Lymphocytes Absolute Auto 0.9 X10*3/uL (1.2-4.9); Mean Corpuscular HGB Conc 31.8 g/dl (31.0-36.0); Mean Corpuscular Hemoglobin 29.2 pg (27.0-33.0); Mean Platelet Volume 9.6 fL (9.4-12.4); Monocytes Absolute Auto 0.5 X10*3/uL (0.1-1.2); Monocytes Percent Auto 5.5 % (2-11); Neutrophils Absolute Auto 7.4 X10*3/uL (2.0-8.3); Neutrophils Percent Auto 80.6 % (45-73); Platelet Count 286 X10*3/uL (160-400); Red Blood Count 3.25 X10*6/uL (4.60-5.80); Red Cell Distribution Width 15.1 % (11.0-16.0); White Blood Count 9.1 X10*3/uL (4.8-10.8)
[2020-06-14 06:34] LABS: Anion Gap 16 (12-20); Blood Urea Nitrogen 19 mg/dL (9-16); Calcium 7.9 mg/dL (8.4-10.2); Carbon Dioxide 21 mmol/L (22-29); Chloride 106 mmol/L (96-108); Estimated Glomerular Filt Rate > 60; Glucose Random 154 mg/dL (60-115); Potassium 3.5 mmol/L (3.3-5.1); Sodium 139 mmol/L (135-145)
[2020-06-14] MEDS: 0.9 % Sodium Chloride Flush 3 ML SYRINGE IVFLUSH ×3 (07:35→23:20)
[2020-06-14 07:40] LABS: Glucose, Whole Blood 148 mg/dL (60-115)
[2020-06-14] MEDS: Cyclobenzaprine HCl 10 MG TABLET PO ×3 (10:42→21:11)
[2020-06-14] MEDS: Metoprolol Tartrate 25 MG TABLET PO ×2 (10:43→21:11)
[2020-06-14] MEDS: Finasteride 5 MG TABLET PO (10:43)
[2020-06-14 11:55] LABS: Glucose, Whole Blood 176 mg/dL (60-115)
[2020-06-14] MEDS: Insulin Lispro 100 UNIT/ML 3 ML VIAL SUBCUT ×3 (12:02→21:12)
--- NOTE | 2020-06-14 14:06 | P.PNIM_ITS ---
Subjective Subjective Date of Service: 06/15/20 Interval History: Patient returned from OR after underwent procedure by Urology, patient offers no acute complaints of abdominal pain Cao catheter draining clear yellow urine, no fever chills. ROS General no headache ,no dizziness, no fever chills. CVS no chest pain, no palpitation. Respiratory no cough, no sputum production, no respiratory distress. Gastrointestinal no nausea, no vomiting, no abdominal pain Physical Exam Vital Signs: Vital Signs: Last Vital Signs Temp 97.6 F 06/14/20 12:00 Pulse 90 06/14/20 12:00 Resp 20 06/14/20 12:00 BP 102/67 06/14/20 12:00 Pulse Ox 97 06/14/20 12:00 Body Mass Index 24.6 General resting comfortably in no acute distress. Neck is supple no JVD. CVS regular rate rhythm, Respiratory lungs clear to auscultation, no respiratory distress, no wheeze, no rhonchi. Gastrointestinal abdomen soft, nontender, bowel sounds audible, no guarding , no rigidity. Extremities no edema. Neuro nonfocal Skin no rash Cao with clear urine Objective Data Current Medications Generic Name Dose Route Start Last Admin Trade Name Freq PRN Reason Stop Dose Admin Acetaminophen 650 mg 06/11/20 12:19 06/12/20 21:32 Acetaminophen 325 Mg Tablet PO 650 mg Q6H PRN Administration Pain, Mild (Pain Scale 1-3) Cyclobenzaprine HCl 10 mg 06/11/20 15:00 06/14/20 10:42 Cyclobenzaprine Hcl 10 Mg Tablet PO 10 mg TID JIL Administration Docusate Sodium 100 mg 06/11/20 12:19 Docusate Sodium 100 Mg Capsule PO DAILY PRN Constipation Doxazosin Mesylate 4 mg 06/13/20 21:00 06/13/20 21:25 Doxazosin Mesylate 2 Mg Tablet PO 4 mg BEDTIME [facility] Administration Protocol Finasteride 5 mg 06/13/20 18:15 06/14/20 10:43 Finasteride 5 Mg Tablet PO 5 mg DAILY [facility] Administration Piperacillin Sod/Tazobactam 50 mls @ 100 mls/hr 06/12/20 12:00 06/14/20 13:32 Sod 3.375 gm/ Sodium Chloride IV Infused Q6H [facility] Infusion Insulin Glargine 6 unit 06/12/20 21:00 06/13/20 21:26 Insulin Glargine,Hum.Rec.Anlog 100 Unit/Ml 10 Ml Vial SUBCUT 6 unit BEDTIME [facility] Administration Insulin Human Lispro 0 unit 06/11/20 11:30 06/14/20 12:02 Insulin Lispro 100 Unit/Ml 3 Ml Vial SUBCUT 2 unit QIDACHS [facility] Administration Protocol Metoprolol Tartrate 25 mg 06/12/20 21:00 06/14/20 10:43 Metoprolol Tartrate 25 Mg Tablet PO 25 mg BID [facility] Administration Protocol Omeprazole 20 mg 06/13/20 06:30 06/14/20 05:17 Omeprazole 20 Mg Capsule.Dr PO 20 mg DAILY@0630 [facility] Administration Ondansetron HCl 4 mg 06/11/20 12:19 Ondansetron Hcl 4 Mg/2 Ml Vial IVPUSH Q8H PRN Nausea and Vomiting Sodium Chloride 3 ml 06/11/20 16:00 06/14/20 07:35 0.9 % Sodium Chloride Flush 3 Ml Syringe IVFLUSH 3 ml QSHIFT [facility] Administration Labs CBC & Chem 7: 06/14/20 05:45 06/14/20 05:45 Microbiology Microbiology Results: Microbiology 06/12/20 18:34 Urine Cao [place] Urine Culture - Preliminary Yeast 06/11/20 10:02 Blood - Venous Blood Culture - Final Pseudomonas aeruginosa 06/11/20 09:57 Blood - Venous Blood Culture - Preliminary No growth after 48 hours. 06/12/20 08:38 Urine clean catch - Clean Catch Midstream Urine Culture - F inal Assessment and Plan (1) Gram-negative bacteremia: Problem details: There is concern over E coli, Klebsiella,less likely Pseudomonas He has improvement Cao urine Status: Acute (2) Hydronephrosis, left: Problem details: Lasix renogram no evidence of obstruction Status: Acute (3) Cao catheter problem: Status: Acute (4) DEON (acute kidney injury): Status: Acute (5) Hematuria: Status: Acute (6) Diabetes mellitus: Status: Acute (7) Acute UTI: Status: Acute Assessment and Plan: 79-year-old male with history of urinary retention status post Cao catheter who presents to the hospital after experiencing pain, urinary tension, and bloody urine output after the Cao catheter was changed. # gram-negative bacteremia related to UTI and obstruction at left ureteropelvic junction with left hydronephrosis 1/2 blood culture bottle positive for gram-negative rods, final culture grew Pseudomonas,on IV Zosyn day 3, case discussed with Dr. Quiros she recommend Levaquin 750 mg for 14 days No evidence of sepsis tachycardia likely related to not taking beta-stacey Patient seen by Urology and placed on Proscar 5 mg and Cardura 4 mg A RENOGRAM WAS OBTAINED THAT SHOWED NO EVIDENCE OF DELAY OF EMPTYING ON THE LEFT SIDE. # hematuria/urinary retention continue Cao catheter hematuria resolved hematocrit stable # DEON - possibly secondary urinary retention and UTI, DEON resolved s/p IV fluid # constipation Noted on CT abdomen, treated and resolved. # diabetes - stable blood sugars, continue low-dose sliding scale insulin and diabetic diet # HTN - soft BP continue metoprolol 25 b.i.d. no further drop in blood pressure. # HLD - on Zocor at home will resume upon discharge DVT prophylaxis: SCDs
--- NOTE | 2020-06-14 14:23 | P.CONGS_ITS ---
History of Present Illness Consult details Consult date: 06/14/20 Narrative: 79-year-old male referred to me because of a left heel ulcer. The patient was admitted on 06/11/2020 by the emergency room because of hematuria. He has had a indwelling Cao catheter since about a month ago for incontinence after he had a COVID infection. He seems to have poor level of activity. He was therefore referred to me because of a left heel ulcer. He denies significant pain on the area. He says he has diabetes. Review of Systems Constitutional: Constitutional: Denies chills and Denies fever(s) Cardiovascular: Cardiovascular: Denies chest pain, Denies dyspnea and Denies dyspnea on exertion Respiratory: Respiratory: Denies cough, Denies dyspnea and Denies dyspnea on exertion Gastrointestinal: Gastrointestinal: Denies hematochezia and Denies change in bowel habits Genitourinary: Genitourinary: Denies hematuria and Denies difficulty urinating Comments: Admitted for hematuria, has indwelling Cao catheter Musculoskeletal: Musculoskeletal: Denies back pain and Denies limited range of motion Neurologic: Denies focal weakness and Denies convulsions Psychiatric: Psychiatric: Denies depression and Denies mood swings PMFSH Past Medical History Medical History (Updated 06/14/20 @ 14:27 by Alexander Da Silva MD) Diabetes Hyperlipidemia Hypertension Iron deficiency anemia Ulcer of left heel Urinary retention Family History Family history: reviewed and not pertinent Surgical History Surgical History History of back surgery History of esophagogastroduodenoscopy History of left hip replacement Hx of colonoscopy Social History Social History Household Members: Significant Other Housing: House Do you presently have visiting nurse or other home services: Yes Alcohol intake: never Smoking Status: Former smoker Tobacco Type: Cigarette Use of substances other than those prescribed or required for medical reasons: No Currently Displaying Signs/Symptoms of Drug Intoxication Withdrawal: No Have you been hit, kicked, punched, or otherwise hurt by someone within the past year? If so, by whom?: No Do you feel safe in your current relationship?: Yes Is there a partner from a previous relationship who is making you feel unsafe now?: No Are you made to feel afraid or neglected: No Advance Directives: No Advance Directives Information Provided: Yes Do you have thoughts of harming others: None Do you have a plan to hurt others: No Plan Recently lost weight without trying: No service: No Current occupational status: retired Meds Allergies Allergy/AdvReac Type Severity Reaction Status Date / Time lisinopril [LISINOPRIL] Allergy Severe ANGIOEDEMA Verified 06/11/20 08:21 Active Medications: Current Medications Generic Name Dose Route Start Last Admin Trade Name Freq PRN Reason Stop Dose Admin Acetaminophen 650 mg 06/11/20 12:19 06/12/20 21:32 Acetaminophen 325 Mg Tablet PO 650 mg Q6H PRN Administration Pain, Mild (Pain Scale 1-3) Cyclobenzaprine HCl 10 mg 06/11/20 15:00 06/14/20 10:42 Cyclobenzaprine Hcl 10 Mg Tablet PO 10 mg TID JIL Administration Docusate Sodium 100 mg 06/11/20 12:19 Docusate Sodium 100 Mg Capsule PO DAILY PRN Constipation Doxazosin Mesylate 4 mg 06/13/20 21:00 06/13/20 21:25 Doxazosin Mesylate 2 Mg Tablet PO 4 mg BEDTIME JIL Administration Protocol Finasteride 5 mg 06/13/20 18:15 06/14/20 10:43 Finasteride 5 Mg Tablet PO 5 mg DAILY JIL Administration Piperacillin Sod/Tazobactam 50 mls @ 100 mls/hr 06/12/20 12:00 06/14/20 13:32 Sod 3.375 gm/ Sodium Chloride IV Infused Q6H JIL Infusion Insulin Glargine 6 unit 06/12/20 21:00 06/13/20 21:26 Insulin Glargine,Hum.Rec.Anlog 100 Unit/Ml 10 Ml Vial SUBCUT 6 unit BEDTIME JIL Administration Insulin Human Lispro 0 unit 06/11/20 11:30 06/14/20 12:02 Insulin Lispro 100 Unit/Ml 3 Ml Vial SUBCUT 2 unit QIDACHS JIL Administration Protocol Metoprolol Tartrate 25 mg 06/12/20 21:00 06/14/20 10:43 Metoprolol Tartrate 25 Mg Tablet PO 25 mg BID JIL Administration Protocol Omeprazole 20 mg 06/13/20 06:30 06/14/20 05:17 Omeprazole 20 Mg Capsule.Dr PO 20 mg DAILY@30 JIL Administration Ondansetron HCl 4 mg 06/11/20 12:19 Ondansetron Hcl 4 Mg/2 Ml Vial IVPUSH Q8H PRN Nausea and Vomiting Sodium Chloride 3 ml 06/11/20 16:00 06/14/20 07:35 0.9 % Sodium Chloride Flush 3 Ml Syringe IVFLUSH 3 ml QSHIFT [facility] Administration Home Medications Medication Instructions Recorded Confirmed Last Taken Type metoprolol tartrate 25 mg tablet 25 mg PO BID 03/17/20 03/17/20 06/10/20 History simvastatin 40 mg tablet 40 mg PO QPM 03/17/20 03/17/20 06/10/20 History Augmentin 875,125 mg PO BID 06/11/20 06/11/20 06/10/20 History Colace 100 mg PO PRN 06/11/20 Unknown History Nexium 24HR 06/11/20 06/10/20 History cyclobenzaprine 1 tab PO TID 06/11/20 06/11/20 06/10/20 History dulaglutide [Trulicity] 0.5 ml SUBCUT QWEEK 06/11/20 06/11/20 06/05/20 History glipizide 2.5 mg PO BID 06/11/20 06/11/20 06/10/20 History senna 8.6 mg PO PRN 06/11/20 Unknown History Physical Exam 2 Vital Signs: Vital Signs: Last Vital Signs Temp 97.6 F 06/14/20 12:00 Pulse 90 06/14/20 12:00 Resp 20 06/14/20 12:00 BP 102/67 06/14/20 12:00 Pulse Ox 97 06/14/20 12:00 Body Mass Index 24.6 Const: Other: looks frail, appears comfortable ,not in distress. He did not seem to be that good of a historian Resp: Effort & Inspection: normal respiratory effort Cardio: Rate: regular rate GI: Palpation (GI): Soft to palpation and nontender : Other: Has indwelling Cao catheter Extrem: Other: Left heel ulcer with eschar, about 2 cm in diameter, no cellulitis, the ulcer seems involved the full-thickness of the skin and part of the subcutaneous layer Results Labs Result diagrams: 06/14/20 05:45 06/14/20 05:45 Labs: Abnormal lab results 06/13/20 06/13/20 06/14/20 Range/Units 16:23 20:58 05:45 RBC 3.25 L (4.60-5.80) X10*6/uL Hgb 9.5 L (14.0-18.0) g/dl Hct 29.9 L (42-52) % Neut % (Auto) 80.6 H (45-73) % Lymph % (Auto) 10.0 L (20-40) % Lymph # (Auto) 0.9 L (1.2-4.9) X10*3/uL Abs Immat Gran (auto) 0.04 H (0.00-0.03) X10*3/uL Carbon Dioxide (22-29) mmol/L BUN (9-16) mg/dL POC Glucose 208 H 162 H (60-115) mg/dL Random Glucose (60-115) mg/dL Calcium (8.4-10.2) mg/dL 06/14/20 06/14/20 06/14/20 Range/Units 05:45 07:22 11:12 RBC (4.60-5.80) X10*6/uL Hgb (14.0-18.0) g/dl Hct (42-52) % Neut % (Auto) (45-73) % Lymph % (Auto) (20-40) % Lymph # (Auto) (1.2-4.9) X10*3/uL Abs Immat Gran (auto) (0.00-0.03) X10*3/uL Carbon Dioxide 21 L (22-29) mmol/L BUN 19 H (9-16) mg/dL POC Glucose 148 H 176 H (60-115) mg/dL Random Glucose 154 H (60-115) mg/dL Calcium 7.9 L (8.4-10.2) mg/dL Short CBC 06/14/20 Range/Units 05:45 WBC 9.1 (4.8-10.8) X10*3/uL Hgb 9.5 L (14.0-18.0) g/dl Hct 29.9 L (42-52) % Plt Count 286 (160-400) X10*3/uL BMP 06/14/20 05:45 Sodium 139 Potassium 3.5 Chloride 106 Carbon Dioxide 21 L BUN 19 H Creatinine 0.77 Calcium 7.9 L Urine 06/11/20 06/12/20 Range/Units 09:11 08:39 Urine Color BROWN YELLOW Urine Appearance HAZY HAZY Urine pH 7.0 5.5 (5.0-8.0) Ur Specific [place] 1.015 1.025 (1.005-1.025) Urine Protein 2+ H 2+ H (NEG-TRACE) MG/DL Urine Glucose (UA) NEG NEG (NEG) MG/DL All other labs normal. Assessment and Plan (1) Ulcer of left heel: Status: Inactive He has a left heel ulcer as described above. This circular in shape. Again this appears to involve the full-thickness of the skin and subcutaneous layer. There was note of an eschar that was necrotic, covering the ulcer. I therefore proceeded to do sharp excisional debridement of this eschar using sharp scissors. I excised the scar off of the subcutaneous layer. In this manner. Debrided all the non viable looking tissue. Applied wet to dry dressing and wrapped the foot and ankle with a Kerlix roll. I positioned a pillow underneath the calf to make sure that there is no contact between the heel and the bed. I emphasized this to the nurse. I will follow along for wound care.
--- NOTE | 2020-06-14 15:31 | MHC.CLN ---
RE: CONSULT PT WITH INCREASED NUTRITION RISK R/T PRESSURE INJURIES PO INTAKE VARIABLE RECOMMEND INCREASING KCALS TO 2200DM DIET TO MEET NEEDS WILL START MERVIN AND ENSURE TID TO INCREASE KCALS AND PROMOTE WOUND HEALING SUPPLEMENT WILL PROVIDE 1210KCALS (54% EST KCAL NEEDS), 65G PROTEIN (58% EST PROTEIN NEEDS) SEE ALSO CLINICAL NUTRITION ASSESSMENT
[2020-06-14 16:53] LABS: Glucose, Whole Blood 281 mg/dL (60-115)
[2020-06-14 20:32] LABS: Glucose, Whole Blood 169 mg/dL (60-115)
[2020-06-14] MEDS: Doxazosin Mesylate 2 MG TABLET 4 MG PO (21:10)
[2020-06-14] MEDS: Insulin Glargine,Hum.rec.anlog 100 UNIT/ML 10 ML VIAL 6 UNIT SUBCUT (21:12)
[2020-06-15 03:09] VITALS: BP 109/62; PULSE 87; RESP 18; TEMP 36.7; O2SAT 100
[2020-06-15] MEDS: Omeprazole 20 MG CAPSULE.DR PO (05:50)
[2020-06-15] MEDS: Piperacillin Sodium/Tazobactam 3.375 GM in 0.9 % Sodium Chloride 50 ML IV ×2 (05:52→12:08)
--- NOTE | 2020-06-15 07:14 | P.CNUR_ITS ---
History of Present Illness Consult details Consult date: 06/13/20 Narrative: 79-year-old male Had been seen by [facility] when admitted to [facility] Had episode of retention at that point in time and there was a plan for a prostate procedure. Imaging with CT scan shows hydronephrosis on left side Creatinine normal White count reducing Keep Cao catheter Follow-up with current urologist Remain on prostate medications - finasteride and doxazosin PMFSH Past Medical History Medical History (Updated 06/15/20 @ 07:18 by Kit Schneider MD) Diabetes Hyperlipidemia Hypertension Iron deficiency anemia Ulcer of left heel Urinary retention Family History Family history: reviewed and not pertinent Surgical History Surgical History History of back surgery History of esophagogastroduodenoscopy History of left hip replacement Hx of colonoscopy Social History Social History Household Members: Significant Other Housing: House Do you presently have visiting nurse or other home services: Yes Alcohol intake: never Smoking Status: Former smoker Tobacco Type: Cigarette Use of substances other than those prescribed or required for medical reasons: No Currently Displaying Signs/Symptoms of Drug Intoxication Withdrawal: No Have you been hit, kicked, punched, or otherwise hurt by someone within the past year? If so, by whom?: No Do you feel safe in your current relationship?: Yes Is there a partner from a previous relationship who is making you feel unsafe now?: No Are you made to feel afraid or neglected: No Advance Directives: No Advance Directives Information Provided: Yes Do you have thoughts of harming others: None Do you have a plan to hurt others: No Plan Recently lost weight without trying: No service: No Current occupational status: retired Meds Allergies Allergy/AdvReac Type Severity Reaction Status Date / Time lisinopril [LISINOPRIL] Allergy Severe ANGIOEDEMA Verified 06/11/20 08:21 Active Medications: Current Medications Generic Name Dose Route Start Last Admin Trade Name Freq PRN Reason Stop Dose Admin Acetaminophen 650 mg 06/11/20 12:19 06/12/20 21:32 Acetaminophen 325 Mg Tablet PO 650 mg Q6H PRN Administration Pain, Mild (Pain Scale 1-3) Cyclobenzaprine HCl 10 mg 06/11/20 15:00 06/14/20 21:11 Cyclobenzaprine Hcl 10 Mg Tablet PO 10 mg TID JIL Administration Docusate Sodium 100 mg 06/11/20 12:19 Docusate Sodium 100 Mg Capsule PO DAILY PRN Constipation Doxazosin Mesylate 4 mg 06/13/20 21:00 06/14/20 21:10 Doxazosin Mesylate 2 Mg Tablet PO 4 mg BEDTIME JIL Administration Protocol Finasteride 5 mg 06/13/20 18:15 06/14/20 10:43 Finasteride 5 Mg Tablet PO 5 mg DAILY JIL Administration Piperacillin Sod/Tazobactam 50 mls @ 100 mls/hr 06/12/20 12:00 06/15/20 06:30 Sod 3.375 gm/ Sodium Chloride IV Infused Q6H JIL Infusion Insulin Glargine 6 unit 06/12/20 21:00 06/14/20 21:12 Insulin Glargine,Hum.Rec.Anlog 100 Unit/Ml 10 Ml Vial SUBCUT 6 unit BEDTIME [facility] Administration Insulin Human Lispro 0 unit 06/11/20 11:30 06/14/20 21:12 Insulin Lispro 100 Unit/Ml 3 Ml Vial SUBCUT 2 unit QIDACHS [facility] Administration Protocol Metoprolol Tartrate 25 mg 06/12/20 21:00 06/14/20 21:11 Metoprolol Tartrate 25 Mg Tablet PO 25 mg BID [facility] Administration Protocol Omeprazole 20 mg 06/13/20 06:30 06/15/20 05:50 Omeprazole 20 Mg Capsule.Dr PO 20 mg DAILY@0630 [facility] Administration Ondansetron HCl 4 mg 06/11/20 12:19 Ondansetron Hcl 4 Mg/2 Ml Vial IVPUSH Q8H PRN Nausea and Vomiting Sodium Chloride 3 ml 06/11/20 16:00 06/14/20 23:20 0.9 % Sodium Chloride Flush 3 Ml Syringe IVFLUSH 3 ml QSHIFT [facility] Administration Home Medications Medication Instructions Recorded Confirmed Last Taken Type metoprolol tartrate 25 mg tablet 25 mg PO BID 03/17/20 03/17/20 06/10/20 History simvastatin 40 mg tablet 40 mg PO QPM 03/17/20 03/17/20 06/10/20 History Augmentin 875,125 mg PO BID 06/11/20 06/11/20 06/10/20 History Colace 100 mg PO PRN 06/11/20 Unknown History Nexium 24HR 06/11/20 06/10/20 History cyclobenzaprine 1 tab PO TID 06/11/20 06/11/20 06/10/20 History dulaglutide [Trulicity] 0.5 ml SUBCUT QWEEK 06/11/20 06/11/20 06/05/20 History glipizide 2.5 mg PO BID 06/11/20 06/11/20 06/10/20 History senna 8.6 mg PO PRN 06/11/20 Unknown History Physical Exam Vital Signs: Vital Signs: Last Vital Signs Temp 98.1 F 06/15/20 03:09 Pulse 87 06/15/20 03:09 Resp 18 06/15/20 03:09 BP 109/62 06/15/20 03:09 Pulse Ox 100 06/15/20 03:09 Body Mass Index 24.6 Const: General: cooperative, healthy appearing, comfortable and no acute distress Nutritional Appearance: average body habitus Orientation/consciousness: oriented to person, oriented to place and oriented to time Eyes: General: appearance normal, both eyes and all related structures Chest: Chest palpation & inspection: normal inspection of the chest Resp: Effort & Inspection: normal respiratory effort Cardio: Rate: regular rate GI: Inspection: Yes normal to inspection Skin: Hair: normal Neuro: General: oriented to person, oriented to place and oriented to time Extrem: General: Yes normal to inspection Results Labs Result diagrams: 06/14/20 05:45 06/14/20 05:45 Labs: Abnormal lab results 06/14/20 06/14/20 06/14/20 Range/Units 07:22 11:12 16:49 POC Glucose 148 H 176 H 281 H (60-115) mg/dL 06/14/20 Range/Units 20:28 POC Glucose 169 H (60-115) mg/dL Urine 06/11/20 06/12/20 Range/Units 09:11 08:39 Urine Color BROWN YELLOW Urine Appearance HAZY HAZY Urine pH 7.0 5.5 (5.0-8.0) Ur Specific [place] 1.015 1.025 (1.005-1.025) Urine Protein 2+ H 2+ H (NEG-TRACE) MG/DL Urine Glucose (UA) NEG NEG (NEG) MG/DL All other labs normal. KIDNEYS AND URETERS: Water density bilateral renal cysts are seen; no imaging follow-up recommended. There is severe left hydronephrosis though the left ureter is nondilated, suggesting a ureteropelvic junction obstruction. Assessment and Plan (1) Hydronephrosis, left: Status: Acute (2) Acute UTI: Status: Acute (3) Urinary retention: Status: Acute Urinary retention managed with prostate medications Hydronephrosis Lasix renogram
--- NOTE | 2020-06-15 07:19 | P.PNUR_ITS ---
Subjective Subjective Date of Service: 06/15/20 Interval history: White cell count falling Creatinine normal Renogram shows no evidence of delay of emptying on the left side Physical Exam Vital Signs: Vital Signs: Last Vital Signs Temp 98.1 F 06/15/20 03:09 Pulse 87 06/15/20 03:09 Resp 18 06/15/20 03:09 BP 109/62 06/15/20 03:09 Pulse Ox 100 06/15/20 03:09 Body Mass Index 24.6 Const: General: cooperative, healthy appearing, comfortable and no acute distress Nutritional Appearance: average body habitus Orientation/consciousness: oriented to person, oriented to place and oriented to time Eyes: General: appearance normal, both eyes and all related structures Chest: Chest palpation & inspection: normal inspection of the chest Resp: Effort & Inspection: normal respiratory effort Cardio: Rate: regular rate GI: Inspection: Yes normal to inspection Skin: Hair: normal Neuro: General: oriented to person, oriented to place and oriented to time Extrem: General: Yes normal to inspection Urology Results Labs CBC & Chem 7: 06/14/20 05:45 06/14/20 05:45 Labs: Laboratory Results - last 24 hr 06/14/20 06/14/20 06/14/20 07:22 11:12 16:49 POC Glucose 148 H 176 H 281 H 06/14/20 20:28 POC Glucose 169 H Progress Note: A&P Assessment and plan (1) Urinary retention: Problem details: Finasteride and doxazosin Status: Acute (2) Hydronephrosis, left: Problem details: Lasix renogram no evidence of obstruction Status: Acute Assessment and Plan: Continue with prostate medications and antibiotics Fall Risk Details Current Medications: Current Medications Generic Name Dose Route Start Last Admin Trade Name Freq PRN Reason Stop Dose Admin Acetaminophen 650 mg 06/11/20 12:19 06/12/20 21:32 Acetaminophen 325 Mg Tablet PO 650 mg Q6H PRN Administration Pain, Mild (Pain Scale 1-3) Cyclobenzaprine HCl 10 mg 06/11/20 15:00 06/14/20 21:11 Cyclobenzaprine Hcl 10 Mg Tablet PO 10 mg TID JIL Administration Docusate Sodium 100 mg 06/11/20 12:19 Docusate Sodium 100 Mg Capsule PO DAILY PRN Constipation Doxazosin Mesylate 4 mg 06/13/20 21:00 06/14/20 21:10 Doxazosin Mesylate 2 Mg Tablet PO 4 mg BEDTIME JIL Administration Protocol Finasteride 5 mg 06/13/20 18:15 06/14/20 10:43 Finasteride 5 Mg Tablet PO 5 mg DAILY JIL Administration Piperacillin Sod/Tazobactam 50 mls @ 100 mls/hr 06/12/20 12:00 06/15/20 06:30 Sod 3.375 gm/ Sodium Chloride IV Infused Q6H JIL Infusion Insulin Glargine 6 unit 06/12/20 21:00 06/14/20 21:12 Insulin Glargine,Hum.Rec.Anlog 100 Unit/Ml 10 Ml Vial SUBCUT 6 unit BEDTIME JIL Administration Insulin Human Lispro 0 unit 06/11/20 11:30 06/14/20 21:12 Insulin Lispro 100 Unit/Ml 3 Ml Vial SUBCUT 2 unit QIDACHS [facility]PL[facility] Administration Protocol Metoprolol Tartrate 25 mg 06/12/20 21:00 06/14/20 21:11 Metoprolol Tartrate 25 Mg Tablet PO 25 mg BID JIL Administration Protocol Omeprazole 20 mg 06/13/20 06:30 06/15/20 05:50 Omeprazole 20 Mg Capsule.Dr PO 20 mg DAILY@0630 JIL Administration Ondansetron HCl 4 mg 06/11/20 12:19 Ondansetron Hcl 4 Mg/2 Ml Vial IVPUSH Q8H PRN Nausea and Vomiting Sodium Chloride 3 ml 06/11/20 16:00 06/14/20 23:20 0.9 % Sodium Chloride Flush 3 Ml Syringe IVFLUSH 3 ml QSHIFT [facility]PL[facility]ED [facility] Administration Time Spent With Patient Time: Total time spent is greater than 50% in coordination of care (as documented) at patient's floor/unit and/or counseling patient: Time with patient: less than 15 minutes
[2020-06-15 07:52] VITALS: BP 119/59; PULSE 107; RESP 15; TEMP 36.2; O2SAT 99
[2020-06-15 07:58] LABS: Glucose, Whole Blood 124 mg/dL (60-115)
--- NOTE | 2020-06-15 08:26 | PM.PNGS ---
Subjective Subjective Date of Service: 06/15/20 Interval history: Denies complaints Says he does not have pain on foot Physical Exam Vital Signs: Vital Signs: Last Vital Signs Temp 97.2 F 06/15/20 07:52 Pulse 107 H 06/15/20 07:52 Resp 15 06/15/20 07:52 BP 119/59 L 06/15/20 07:52 Pulse Ox 99 06/15/20 07:52 Body Mass Index 24.6 Const: General: comfortable and no acute distress Resp: Effort & Inspection: normal respiratory effort Cardio: Rhythm: regular rhythm GI: Palpation (GI): Soft to palpation and nontender Extrem: Other: Left heel ulcer debrided yesterday, clean, no cellulitis, open wound Laboratory Results - last 24 hr 06/14/20 06/14/20 06/14/20 11:12 16:49 20:28 POC Glucose 176 H 281 H 169 H 06/15/20 07:48 POC Glucose 124 H Progress Note: A&P Assessment and plan (1) Ulcer of left heel: Status: Acute Assessment and Plan: Left heel ulcer debrided bedside yesterday Dressings changed - I applied foam dressings today Keep heel off of bed at all times - to pillows placed under the calf to elevate foot Wound care Fall Risk Details Current Medications: Current Medications Generic Name Dose Route Start Last Admin Trade Name Morganq PRN Reason Stop Dose Admin Acetaminophen 650 mg 06/11/20 12:19 06/12/20 21:32 Acetaminophen 325 Mg Tablet PO 650 mg Q6H PRN Administration Pain, Mild (Pain Scale 1-3) Cyclobenzaprine HCl 10 mg 06/11/20 15:00 06/14/20 21:11 Cyclobenzaprine Hcl 10 Mg Tablet PO 10 mg TID JIL Administration Docusate Sodium 100 mg 06/11/20 12:19 Docusate Sodium 100 Mg Capsule PO DAILY PRN Constipation Doxazosin Mesylate 4 mg 06/13/20 21:00 06/14/20 21:10 Doxazosin Mesylate 2 Mg Tablet PO 4 mg BEDTIME JIL Administration Protocol Finasteride 5 mg 06/13/20 18:15 06/14/20 10:43 Finasteride 5 Mg Tablet PO 5 mg DAILY JIL Administration Piperacillin Sod/Tazobactam 50 mls @ 100 mls/hr 06/12/20 12:00 06/15/20 06:30 Sod 3.375 gm/ Sodium Chloride IV Infused Q6H JIL Infusion Insulin Glargine 6 unit 06/12/20 21:00 06/14/20 21:12 Insulin Glargine,Hum.Rec.Anlog 100 Unit/Ml 10 Ml Vial SUBCUT 6 unit BEDTIME JIL Administration Insulin Human Lispro 0 unit 06/11/20 11:30 06/15/20 08:02 Insulin Lispro 100 Unit/Ml 3 Ml Vial SUBCUT Not Given QIDACHS [facility] Protocol Metoprolol Tartrate 25 mg 06/12/20 21:00 06/14/20 21:11 Metoprolol Tartrate 25 Mg Tablet PO 25 mg BID JIL Administration Protocol Omeprazole 20 mg 06/13/20 06:30 06/15/20 05:50 Omeprazole 20 Mg Capsule.Dr PO 20 mg DAILY@0630 [facility] Administration Ondansetron HCl 4 mg 06/11/20 12:19 Ondansetron Hcl 4 Mg/2 Ml Vial IVPUSH Q8H PRN Nausea and Vomiting Sodium Chloride 3 ml 06/11/20 16:00 06/14/20 23:20 0.9 % Sodium Chloride Flush 3 Ml Syringe IVFLUSH 3 ml QSHIFT [facility] Administration Time Spent With Patient Time: Total time spent is greater than 50% in coordination of care (as documented) at patient's floor/unit and/or counseling patient: Time with patient: 15 - 24 minutes
[2020-06-15 08:54] VITALS: BP 119/59; PULSE 107
[2020-06-15] MEDS: Finasteride 5 MG TABLET PO (08:54)
[2020-06-15] MEDS: Metoprolol Tartrate 25 MG TABLET PO (08:54)
[2020-06-15] MEDS: 0.9 % Sodium Chloride Flush 3 ML SYRINGE IVFLUSH (08:54)
[2020-06-15] MEDS: Cyclobenzaprine HCl 10 MG TABLET PO (08:55)
--- NOTE | 2020-06-15 11:15 | MHC.CM.PN ---
Addendum entered by Ivis Gunderson RN 06/15/20 13:43: UPDATE: PER NURSING THERE WILL BE NO VOIDING TRIAL, PT WILL KEEP INDWELLING [facility] UNTIL FOLLOW-UP W/ UROLOGY. Original Note: IMM 06/15/20, PT WILL DISCHARGE TODAY 06/15/20 HOME W/[facility]UMP OF [facility] FOR SN AND HOME PT (AFTER [facility] IS REMOVED AND PT VOIDS), TO TRANSPORT.
--- NOTE | 2020-06-15 11:18 | P.DS_ITS ---
DS: Providers Provider Date of Service: 06/15/20 Date of admission: 06/11/20 11:19 Primary care physician: Kris Pierce MD Consults: 06/12/20 11:46 Consult to Infectious Diseases Routine Consulting Provider: Elba Quiros Reason for consultation: connie Has provider been notified: No 06/13/20 08:02 Consult to Urology Routine Consulting Provider: Kit Schneider Reason for consultation: severe left hydronephrosis/gm neg bacteremia 06/13/20 11:24 Consult to General Surgery Routine Consulting Provider: Dameon Vanegas Reason for consultation: left heel ulcer foul odor bacteremia Has provider been notified: No DS: Diagnosis Discharge Diagnosis (1) Gram-negative bacteremia: Status: Acute Problem details: There is concern over E coli, Klebsiella,less likely Pseudomonas He has improvement Alvarez urine (2) Hydronephrosis, left: Status: Acute Problem details: Lasix renogram no evidence of obstruction (3) Alvarez catheter problem: Status: Acute (4) DEON (acute kidney injury): Status: Acute (5) Hematuria: Status: Acute (6) Diabetes mellitus: Status: Acute (7) Acute UTI: Status: Acute DS: Medications Discharge Medications Home Medications: Home Medications Medication Instructions Recorded Confirmed metoprolol tartrate 25 mg tablet 25 mg PO BID 03/17/20 03/17/20 simvastatin 40 mg tablet 40 mg PO QPM 03/17/20 03/17/20 Colace 100 mg PO PRN 06/11/20 Nexium 24HR 06/11/20 Trulicity 0.5 ml SUBCUT QWEEK 06/11/20 06/11/20 cyclobenzaprine 1 tab PO TID 06/11/20 06/11/20 glipizide 2.5 mg PO BID 06/11/20 06/11/20 senna 8.6 mg PO PRN 06/11/20 Previous Rx's Medication Instructions Recorded doxazosin 4 mg PO BEDTIME #30 tab 06/15/20 finasteride [Proscar] 5 mg PO DAILY #30 tab 06/15/20 levofloxacin 750 mg PO DAILY 14 Days #14 tab 06/15/20 DS: Summary Hospital Course Hospital Course: Chief Complaint: hematuria This is a 79-year-old male with past medical history of hypertension, diabetes, hyperlipidemia, urinary retention secondary to COVID-19 infection and hospitalization status post chronic Alvarez presents to the hospital with comp laints of hematuria and significant pain about 10/10, difficult to sleep due to the pain at Alvarez cath insertion. Patient reports that he has had a Alvarez catheter in place since falling L to COVID-19 about 3-4 months ago, he developed urinary retention and has had this cough Alvarez catheter. Yesterday and nurse came to his house change the Alvarez catheter and ever since change in his folic catheter he has not been able to urinate had significant pain, and was bleeding without evidence of urine. He denies having had any symptoms prior to this, no hematuria prior to the change of the Alvarez catheter, no abdominal pain, no shortness of breath or chest pain, no fever or chills, no confusion, no lower extremity edema. Patient reports that he was in good health prior to the go Alvarez catheter being changed yesterday. On arrival to the ED patient's vitals are significant for temp of 97.4?, heart rate of 120, respiratory rate of 16, blood pressure 120/69, satting 100% on room air. Labs are significant for CBC of 21, hemoglobin of 11.9 which is improved from previous, hematocrit 36.1, platelet of 546, PT of 13.9, INR of 1.2, sodium of 131, BUN of 34, creatinine of 1.47 which is increased from 1. 04 in April, UA positive for leukocyte Estrace, blood, urine WBC. His urinary catheter was replaced in the ED he is now feeling significant relief, with pain resolving. 79-year-old male with history of urinary retention status post Alvarez catheter who presents to the hospital after experiencing pain, urinary tension, and bloody urine output after the Alvarez catheter was changed. # Pseudomonas aeruginosa related to UTI CT abdomen and pelvis showed obstruction at left ureteropelvic junction with left hydronephrosis, patient seen by Dr. Schneider a renogram was obtained that showed no evidence of delay of emptying on the left side, patient treated with IV Zosyn 5 days initially and now being discharged home on by mouth Levaquin 750 mg daily for 14 more days No evidence of sepsis noted patient placed on Proscar 5 mg and Cardura 4 mg by Urology and is recommended to have outpatient follow-up by his primary urologist to undergo prostate surgery # hematuria/urinary retention continue Alvarez catheter hematuria resolved hematocrit stable. # DEON - possibly secondary urinary retention and UTI, DEON resolved s/p IV fluid # constipation Noted on CT abdomen, treated and resolved. # diabetes - stable blood sugars, continue home medication and diabetic diet # HTN stable Time Spent with Patient Time attestation: Total time spent providing and/or coordinating discharge services: Discharge coordination time: Greater than 30 minutes Physical Exam Vital Signs: Vital Signs: Last Vital Signs Temp 97.2 F 06/15/20 07:52 Pulse 107 H 06/15/20 08:54 Resp 15 06/15/20 07:52 BP 119/59 L 06/15/20 08:54 Pulse Ox 99 06/15/20 07:52 Body Mass Index 24.6 General resting comfortably in no acute distress. Neck is supple no JVD. CVS regular rate rhythm, Respiratory lungs clear to auscultation, no respiratory distress, no wheeze, no rhonchi. Gastrointestinal abdomen soft, nontender, bowel sounds audible, no guarding , no rigidity. Extremities no edema. Neuro nonfocal Skin no rash Alvarez with clear urine DS: Data Data Completed and Pending Labs on day of discharge: Laboratory Results - last 24 hr 06/14/20 06/14/20 06/14/20 11:12 16:49 20:28 POC Glucose 176 H 281 H 169 H 06/15/20 07:48 POC Glucose 124 H Preliminary micro results at discharge 06/11/20 09:57 Blood Culture - Preliminary Blood - Venous No growth after 48 hours. Discharge Plan Discharge Patient Disposition: Home Health Service Referrals: [facility] [Outside] (RESUMPTION OF [facility] AND HOME PT. PLEASE CALL ABOVE NUMBER IF YOU HAVE NOT HEARD FROM THEM BY NOON ON 06/16/20) Kris Pierce MD [Primary Care Provider] - Discharge Medications: New finasteride [Proscar] 5 mg Tablet 5 mg PO DAILY Qty: 30 RF: 0 doxazosin 2 mg Tablet 4 mg PO BEDTIME Qty: 30 RF: 0 levofloxacin 750 mg tablet 750 mg PO DAILY 14 Days Qty: 14 RF: 0 Continued cyclobenzaprine 10 mg tablet 1 tab PO TID RF: 0 glipizide 2.5 mg PO BID RF: 0 Nexium 24HR RF: 0 Colace 100 mg PO PRN (Reason: Constipation) RF: 0 senna 8.6 mg PO PRN (Reason: Constipation) RF: 0 Trulicity 1.5 mg/0.5 mL pen injector 0.5 ml subcut QWEEK RF: 0 metoprolol tartrate 25 mg tablet 25 mg PO BID RF: 0 simvastatin 40 mg tablet 40 mg PO QPM RF: 0 Discontinued Augmentin 875,125 mg PO BID RF: 0 Discharge Orders: Discharge Order (Routine); Ordered 06/15/20 Ordered By: Juany Nation Diet: diabetic diet Activity on Discharge: As tolerated Stand Alone Forms: Patient Portal Discharge page Care Plan Goals: CONTINUE ALL HOME MEDICATIONS, CONTINUE ALVAREZ CATHETER Health Concerns: BACTEREMIA TAKE BY MOUTH ANTIBIOTIC PRESCRIBED Plan of Treatment: OUTPATIENT FOLLOW-UP WITH PRIMARY CARE PHYSICIAN AND UROLOGY PREVIOUSLY PLANNED
[2020-06-15 11:43] VITALS: BP 118/61; PULSE 96; RESP 16; TEMP 36.4; O2SAT 99
[2020-06-15 12:05] LABS: Glucose, Whole Blood 216 mg/dL (60-115)
[2020-06-15] MEDS: Insulin Lispro 100 UNIT/ML 3 ML VIAL SUBCUT (12:08)
== END 2020-06-15 15:26 | disposition home health service (06) | DRG 674 ==
LOC: HO.ED 11:10 → HO.EDOVER 11:23 → HO.S3 14:59
PROVIDERS: Admitting Provider Internal Medicine; Emergency Provider Emergency Medicine; PCP Internal Medicine; Visit Provider Hospitalist
DX: T83.83XA Hemorrhage due to genitourinary prosthetic devices, implants and grafts, initial encounter (principal); N13.6 Pyonephrosis; N17.9 Acute kidney failure, unspecified; R78.81 Bacteremia; E78.5 Hyperlipidemia, unspecified; E11.9 Type 2 diabetes mellitus without complications; R33.9 Retention of urine, unspecified; I10 Essential (primary) hypertension; K59.00 Constipation, unspecified; Z96.0 Presence of urogenital implants; Z86.16 Personal history of COVID-19; Z96.642 Presence of left artificial hip joint; Z20.822 Contact with and (suspected) exposure to COVID-19; Z87.891 Personal history of nicotine dependence; Z79.899 Other long term (current) drug therapy
CPT/HCPCS: 36415; 71045; 74177; 78708; 80048; 80053; 81001; 81003; 82947; 83605; 85025; 85610; 85730; 87040; 87077; 87086; 87088; 87186; 87205; 87635; 96365; 99285; A9539; J0696; J2543; Q9967

== ENCOUNTER 2020-06-29 14:01 | Outpatient (REF) | payer MEDICARE, SELFPAY ==
--- NOTE | ~2020-06-29 | XR_ITS ---
EXAMINATION: XR CALCANEUS, LEFT CLINICAL INFORMATION: Pressure ulcer, rule out osteo. COMPARISON: None TECHNIQUE: Lateral and axial views of the left calcaneus were obtained. FINDINGS: There is scattered calcific density noted overlying the soft tissues in the calcaneal region likely dystrophic or, in part, related to overlying dressing if in place. The bone is intact. There are vascular calcifications. 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 XR/XR calcaneus LT min 2V IMPRESSION: No radiographic signs of osteomyelitis. Soft tissue calcifications likely dystrophic. If clinical concern for osteomyelitis, consider followup imaging with MRI. 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
== END 2020-06-29 14:02 | disposition home or self-care (01) ==
LOC: HO.XRAY 14:01
PROVIDERS: PCP Internal Medicine; Visit Provider Surgery
DX: L89.629 Pressure ulcer of left heel, unspecified stage (principal)
CPT/HCPCS: 73650

== ENCOUNTER → 2020-11-11 11:01 | Outpatient (BNVA) | payer MEDICARE, SELFPAY | PROVIDERS: PCP Internal Medicine; Visit Provider Surgery | DX: L89.629 Pressure ulcer of left heel, unspecified stage (principal); E11.622 Type 2 diabetes mellitus with other skin ulcer; I10 Essential (primary) hypertension; E78.5 Hyperlipidemia, unspecified; D50.9 Iron deficiency anemia, unspecified; Z88.8 Allergy status to other drugs, medicaments and biological substances | CPT/HCPCS: 99202 ==

== ENCOUNTER 2020-11-25 14:47 | Inpatient (IN) | payer MEDICARE, SELFPAY ==
[2020-11-25] VITALS (8 sets, daily range): BP systolic 112–140; BP diastolic 42–62; PULSE 34–38; RESP 14–16; TEMP 36.1–36.2; O2SAT 94–100; BMI 27.1
--- NOTE | 2020-11-25 | ECG_ITS ---
Test Reason : LOW HEART RATE Blood Pressure : / mmHG Vent. Rate : 040 BPM Atrial Rate : 080 BPM P-R Int : 398 ms QRS Dur : 150 ms QT Int : 562 ms P-R-T Axes : -05 -64 013 degrees QTc Int : 458 ms Sinus rhythm with 2nd degree A-V block with 2:1 A-V conduction Right bundle branch block Left anterior fascicular block Bifascicular block Abnormal ECG When compared with ECG of 15-MAY-2019 21:21, Fusion complexes are no longer Present Sinus rhythm is now with 2nd degree A-V block Vent. rate has decreased BY 62 BPM Nonspecific T wave abnormality now evident in Inferior leads Referred By: Generic ED Physician Electronically Signed By:LORI DASILVA
--- NOTE | ~2020-11-25 | XR_ITS ---
EXAMINATION: XR CHEST CLINICAL INFORMATION: Weakness COMPARISON: 06/11/2020 TECHNIQUE: Frontal view of the chest was obtained. FINDINGS: Subtle patchy bilateral interstitial opacities are seen. No focal consolidation or mass. Small right pleural effusion may be present as there is blunting of the right costophrenic angle. Calcified aortic arch. Normal heart size. Regional skeleton intact. XR/XR chest 1V IMPRESSION: Subtle patchy bilateral interstitial opacities are seen. Viral pneumonitis could give this appearance. Possible new small right pleural effusion.
--- NOTE | ~2020-11-25 | XR_ITS ---
EXAMINATION: XR CHEST CLINICAL INFORMATION: New pacemaker. COMPARISON: Chest 11/25/2020. TECHNIQUE: Frontal view of the chest was obtained. FINDINGS: There are new dual pacer electrodes in right atrium and right ventricle. The lungs are well-expanded with patchy atelectasis or infiltrate right middle lobe. Rest of lungs are clear. XR/XR chest 1V IMPRESSION: New nodule pacer electrode in the right atrium and right ventricle. Patchy density right middle lobe question small atelectasis or infiltrate.
--- NOTE | ~2020-11-25 | FL_ITS ---
EXAMINATION: XR FLUOROSCOPY WITH IMAGES CLINICAL INFORMATION: Pacemaker insertion COMPARISON: None. TECHNIQUE: Fluoroscopy performed by Cynthia. Fluoroscopy time: 10.2 minutes Reference air kerma: 378 mGy DAP: 90.4 Gycm2 Images: 2 FINDINGS: Fluoroscopic imaging guidance was utilized for procedure. 2 fluoroscopic matrix images are saved and available for review. These 2 images demonstrate pacemaker leads overlying the right atrium and ventricle. FL/FL guidance in OR IMPRESSION: Imaging guidance for procedure. Please refer to operative report for detail regarding procedure and findings.
--- NOTE | ~2020-11-25 | XR_ITS ---
EXAMINATION: XR CHEST CLINICAL INFORMATION: New pacer placement COMPARISON: 11/26/2020 TECHNIQUE: Frontal view of the chest was obtained. FINDINGS: Again noted is the dual-chamber cardiac pacemaker with intact leads extending to the level of the right atrium and right ventricle. Cardiac silhouette is normal in size. The lungs are well expanded. No acute cardiopulmonary findings compared to the prior radiograph. The haziness of the right base might represent layering of a trace pleural effusion or atelectasis. No overt consolidation. The visualized bones are intact. XR/XR chest 1V IMPRESSION: * No evidence of complications from the cardiac pacemaker placement. No pneumothorax. No evidence of active congestive heart failure. * Possible trace right pleural effusion.
--- NOTE | 2020-11-25 15:23 | ED_ITS ---
HPI - Weakness General Chief complaint: Weakness Stated complaint: low heart rate Time Seen by Provider: 11/25/20 15:13 Source: patient Mode of arrival: ambulatory Limitations: no limitations History of Present Illness MD Complaint: generalized weakness (dyspnea, fatigue) Onset (ago): week(s) (1) Duration: constant Location: generalized Migration: none Severity: moderate Quality: aching Relieving factors: movement and exertion Exacerbating factors: none Associated symptoms: loss of appetite and shortness of breath Related Data Home Medications Medication Instructions Recorded Confirmed metoprolol tartrate 25 mg tablet 25 mg PO BID 03/17/20 11/23/20 simvastatin 40 mg tablet 40 mg PO QPM 03/17/20 11/23/20 Nexium 24HR 06/11/20 dulaglutide 1.5 mg/0.5 mL 0.5 ml SUBCUT QWEEK 06/11/20 11/23/20 subcutaneous pen injector (mphoria) blood sugar diagnostic (OneTouch #10 ea 11/11/20 Verio test strips) glipizide 2.5 mg tablet, extended 2.5 mg PO DAILY 11/11/20 11/23/20 release 24 hr pantoprazole 20 mg tablet,delayed 20 mg PO DAILY 11/11/20 11/23/20 release Previous Rx's Medication Instructions Recorded doxazosin 2 mg tablet 4 mg PO BEDTIME #30 tab 06/15/20 finasteride 5 mg tablet (Proscar) 5 mg PO DAILY #30 tab 06/15/20 levofloxacin 750 mg tablet 750 mg PO DAILY 14 Days #14 tab 06/15/20 Allergies Allergy/AdvReac Type Severity Reaction Status Date / Time lisinopril [LISINOPRIL] Allergy Severe ANGIOEDEMA Verified 11/25/20 16:27 Review of Systems Review of Systems: Constitutional : No Weight loss, No Fever, No Chills, pos Fatigue, pos Malaise ENT/Mouth : No sore throat, No Rhinorrhea Eyes: No Eye Pain, No Swelling, No Redness Cardiovascular : No Chest Pain, pos SOB, pos Dyspnea on Exertion, pos Orthopnea, No Edema, No Palpitations Respiratory : No Cough, No Sputum, No Wheezing Gastrointestinal : No Nausea, No Vomiting, No Diarrhea, No Constipation, No abdominal Pain, No Hematochezia, No Melena Genitourinary : No Dysuria, No Urinary Frequency, No Hematuria, Musculoskeletal : No joint pain, No Myalgias, No Joint Swelling Skin : No Skin Lesions, No rash Neuro : pos Weakness, No Numbness, No Dizziness, No Headache Psych : No Anxiety/Panic, No Depression Heme/Lymph: No Bruising, No Bleeding,No Lymphadenopathy Endocrine : No Polyuria, No Polydipsia All other systems reviewed and are negative PMFSH Past Medical History Attestation statement: The following information was validated with the patient. Medical History Back pain Diabetes mellitus History of COVID-19 Hyperlipidemia Hypertension Iron deficiency anemia Ulcer of left heel Urinary retention Surgical History History of back surgery History of esophagogastroduodenoscopy History of left hip replacement Hx of cataract extraction Hx of colonoscopy Family History Family History Brother Testicular cancer Social History Social History Household Members: Significant Other Housing: House Do you presently have visiting nurse or other home services: Yes Alcohol intake: never Patient Tobacco Use Status: Tobacco use Unknown Use of substances other than those prescribed or required for medical reasons: No Advance Directives: No Advance Directives Information Provided: No service: No Current occupational status: retired Physical Exam Vital Signs: Vital Signs: Last Vital Signs Pulse 38 L 11/25/20 15:55 Resp 15 11/25/20 15:55 BP 132/62 11/25/20 15:55 Pulse Ox 99 11/25/20 15:55 Body Mass Index 27.1 Appearance: Alert. Oriented X3. No acute distress. Eyes: Pupils equal, round and reactive to light. ENT: Pharynx normal. Neck: Normal inspection. Neck supple. CVS: bradycardic heart rate and rhythm. Pulses normal. Respiratory: No respiratory distress. Breath sounds decreased at bases R>L Abdomen: Soft and non-tender. Skin: Skin warm and dry. Normal skin color. Normal skin turgor. Extremities: No lower extremity edema. No calf ttp Neuro: Oriented X 3. No motor deficit. No sensory deficit. Course Course Course Narrative: 320pm message sent to Dr. Maddox and Dr. Marie for 2:1 HB BP 140/60 he is neurologically intact MDM - Weakness MDM Narrative Medical decision making narrative: 80 yo male with HTN, DM, chronic L heel ulcer comes in [place] and weakness x 1 week - no GIB symptoms, no CP, on metoprolol 25mg BID - found to be in 2:1 HB - labs, CXR, IV glucagon and calcium - planned admit cardiology and ICU aware Lab Data Result diagrams: 11/25/20 15:23 11/25/20 15:23 Labs: Lab Results 11/25/20 11/25/20 11/25/20 Range/Units 15:23 15:23 15:23 WBC 10.5 (4.8-10.8) X10*3/uL RBC 4.04 L (4.60-5.80) X10*6/uL Hgb 10.4 L (14.0-18.0) g/dl Hct 33.6 L (42-52) % MCV 83.2 (80-98) fL MCH 25.7 L (27.0-33.0) pg MCHC 31.0 (31.0-36.0) g/dl RDW 15.9 (11.0-16.0) % Plt Count 341 (160-400) X10*3/uL MPV 10.9 (9.4-12.4) fL Immature Gran % (Auto) 0.5 H (0.0-0.4) % Neut % (Auto) 79.5 H (45-73) % Lymph % (Auto) 10.2 L (20-40) % [place] % (Auto) 7.6 (2-11) % Eos % (Auto) 1.6 (0-4) % Baso % (Auto) 0.6 (0-2) % Lymph # (Auto) 1.1 L (1.2-4.9) X10*3/uL [place] # (Auto) 0.8 (0.1-1.2) X10*3/uL Eos # (Auto) 0.2 (0.0-0.4) X10*3/uL Baso # (Auto) 0.1 (0.0-0.2) X10*3/uL Abs Immat Gran (auto) 0.05 H (0.00-0.03) X10*3/uL Absolute Neuts (auto) 8.3 (2.0-8.3) X10*3/uL Absolute Nucleated RBC 0.000 (0.0-0.012) X10*3/uL Nucleated RBC % (auto) 0.0 (0.0-0.2) /100WBC PT (9.9-13.0) SEC INR (0.9-1.1) APTT (24.1-38.0) SEC Sodium 136 (135-145) mmol/L Potassium 5.2 H (3.3-5.1) mmol/L Chloride 108 (96-108) mmol/L Carbon Dioxide 18 L (22-29) mmol/L Anion Gap 15 (12-20) BUN 57 H D (9-16) mg/dL Creatinine 1.93 H (0.5-1.4) mg/dL Estim Creat Clear Calc 31.0 Estimated GFR 34 Random Glucose 119 H (60-115) mg/dL Calcium 9.5 (8.4-10.2) mg/dL Magnesium 2.2 (1.6-2.6) mg/dL Total Bilirubin 0.7 (0.0-1.0) mg/dL Direct Bilirubin 0.3 (0.0-0.5) mg/dL AST 99 H (5-37) U/L ALT 131 H (0-40) U/L Alkaline Phosphatase 112 D (39-117) U/L Troponin I High Sens (<3.5-35.0) ng/L B-Natriuretic Peptide 1870 H (<100) pg/mL Total Protein 7.0 (6.5-8.0) g/dL Albumin 3.9 D (3.5-5.0) g/dL TSH (0.32-4.0) uIU/mL Free T4 (0.71-1.85) ng/dL COVID-19 (ROM) (Negative) COVID-19 Clin Com 11/25/20 11/25/20 11/25/20 Range/Units 15:23 15:23 15:23 WBC (4.8-10.8) X10*3/uL RBC (4.60-5.80) X10*6/uL Hgb (14.0-18.0) g/dl Hct (42-52) % MCV (80-98) fL MCH (27.0-33.0) pg MCHC (31.0-36.0) g/dl RDW (11.0-16.0) % Plt Count (160-400) X10*3/uL MPV (9.4-12.4) fL Immature Gran % (Auto) (0.0-0.4) % Neut % (Auto) (45-73) % Lymph % (Auto) (20-40) % [place] % (Auto) (2-11) % Eos % (Auto) (0-4) % Baso % (Auto) (0-2) % Lymph # (Auto) (1.2-4.9) X10*3/uL [place] # (Auto) (0.1-1.2) X10*3/uL Eos # (Auto) (0.0-0.4) X10*3/uL Baso # (Auto) (0.0-0.2) X10*3/uL Abs Immat Gran (auto) (0.00-0.03) X10*3/uL Absolute Neuts (auto) (2.0-8.3) X10*3/uL Absolute Nucleated RBC (0.0-0.012) X10*3/uL Nucleated RBC % (auto) (0.0-0.2) /100WBC PT 13.4 H (9.9-13.0) SEC INR 1.2 H (0.9-1.1) APTT 34.0 (24.1-38.0) SEC Sodium (135-145) mmol/L Potassium (3.3-5.1) mmol/L Chloride (96-108) mmol/L Carbon Dioxide (22-29) mmol/L Anion Gap (12-20) BUN (9-16) mg/dL Creatinine (0.5-1.4) mg/dL Estim Creat Clear Calc Estimated GFR Random Glucose (60-115) mg/dL Calcium (8.4-10.2) mg/dL Magnesium (1.6-2.6) mg/dL Total Bilirubin (0.0-1.0) mg/dL Direct Bilirubin (0.0-0.5) mg/dL AST (5-37) U/L ALT (0-40) U/L Alkaline Phosphatase (39-117) U/L Troponin I High Sens 113.4 H* (<3.5-35.0) ng/L B-Natriuretic Peptide (<100) pg/mL Total Protein (6.5-8.0) g/dL Albumin (3.5-5.0) g/dL TSH (0.32-4.0) uIU/mL Free T4 (0.71-1.85) ng/dL COVID-19 (ROM) Negative (Negative) COVID-19 Clin Com See Note 11/25/20 Range/Units 15:23 WBC (4.8-10.8) X10*3/uL RBC (4.60-5.80) X10*6/uL Hgb (14.0-18.0) g/dl Hct (42-52) % MCV (80-98) fL MCH (27.0-33.0) pg MCHC (31.0-36.0) g/dl RDW (11.0-16.0) % Plt Count (160-400) X10*3/uL MPV (9.4-12.4) fL Immature Gran % (Auto) (0.0-0.4) % Neut % (Auto) (45-73) % Lymph % (Auto) (20-40) % [place] % (Auto) (2-11) % Eos % (Auto) (0-4) % Baso % (Auto) (0-2) % Lymph # (Auto) (1.2-4.9) X10*3/uL [place] # (Auto) (0.1-1.2) X10*3/uL Eos # (Auto) (0.0-0.4) X10*3/uL Baso # (Auto) (0.0-0.2) X10*3/uL Abs Immat Gran (auto) (0.00-0.03) X10*3/uL Absolute Neuts (auto) (2.0-8.3) X10*3/uL Absolute Nucleated RBC (0.0-0.012) X10*3/uL Nucleated RBC % (auto) (0.0-0.2) /100WBC PT (9.9-13.0) SEC INR (0.9-1.1) APTT (24.1-38.0) SEC Sodium (135-145) mmol/L Potassium (3.3-5.1) mmol/L Chloride (96-108) mmol/L Carbon Dioxide (22-29) mmol/L Anion Gap (12-20) BUN (9-16) mg/dL Creatinine (0.5-1.4) mg/dL Estim Creat Clear Calc Estimated GFR Random Glucose (60-115) mg/dL Calcium (8.4-10.2) mg/dL Magnesium (1.6-2.6) mg/dL Total Bilirubin (0.0-1.0) mg/dL Direct Bilirubin (0.0-0.5) mg/dL AST (5-37) U/L ALT (0-40) U/L Alkaline Phosphatase (39-117) U/L Troponin I High Sens (<3.5-35.0) ng/L B-Natriuretic Peptide (<100) pg/mL Total Protein (6.5-8.0) g/dL Albumin (3.5-5.0) g/dL TSH 4.91 H (0.32-4.0) uIU/mL Free T4 0.92 (0.71-1.85) ng/dL COVID-19 (ROM) (Negative) COVID-19 Clin Com ECG Data Attestation: I personally reviewed and interpreted this ECG as follows: ECG interpretation date: 11/25/20 ECG interpretation time: 15:31 Interpretation: Rate: 40 Rhythm: 2:1 2nd degree HB [place]: left Normal P waves. Normal KATLYN. RBBB ST T wave : nonspecific, no KANNAN qTC: prolonged prior studies: changed from prior The study has been interpreted contemporaneously by me. . Critical Care Time Critical Care Time Critical Care Time: Yes Total Critical Care Time: 35 Attestation: cardiac intervention, pacer pads, medical consult x 2 I attest to this time spent taking care of the patient Discharge Plan Discharge Clinical Impression: Heart block, DEON (acute kidney injury), Elevated troponin Patient Disposition: Admitted As Inpatient
[2020-11-25] MEDS: Calcium Gluconate/NaCl,Iso-Osm 2 GM/100 ML PLAST..BAG IV (15:31)
[2020-11-25 15:32] LABS: MANUAL DIFF FLAG NO
[2020-11-25 15:39] LABS: Basophils Absolute Auto 0.1 X10*3/uL (0.0-0.2); Basophils Percent Auto 0.6 % (0-2); Eosinophils Absolute Auto 0.2 X10*3/uL (0.0-0.4); Eosinophils Percent Auto 1.6 % (0-4); Hematocrit 33.6 % (42-52); Hemoglobin 10.4 g/dl (14.0-18.0); Imm Gran Abs Auto 0.05 X10*3/uL (0.00-0.03); Imm Gran Pct Auto 0.5 % (0.0-0.4); Lymphocytes Absolute Auto 1.1 X10*3/uL (1.2-4.9); Lymphocytes Percent Auto 10.2 % (20-40); Mean Corpuscular Hemoglobin 25.7 pg (27.0-33.0); Mean Corpuscular Volume 83.2 fL (80-98); Mean Platelet Volume 10.9 fL (9.4-12.4); Monocytes Absolute Auto 0.8 X10*3/uL (0.1-1.2); Monocytes Percent Auto 7.6 % (2-11); Neutrophils Absolute Auto 8.3 X10*3/uL (2.0-8.3); Neutrophils Percent Auto 79.5 % (45-73); Platelet Count 341 X10*3/uL (160-400); Red Blood Count 4.04 X10*6/uL (4.60-5.80); Red Cell Distribution Width 15.9 % (11.0-16.0); White Blood Count 10.5 X10*3/uL (4.8-10.8)
[2020-11-25 15:45] LABS: INTERNATIONAL NORM RATIO 1.2 (0.9-1.1); Prothrombin Time 13.4 SEC (9.9-13.0)
[2020-11-25 15:53] LABS: Alanine Aminotransferase 131 U/L (0-40); Albumin Level 3.9 g/dL (3.5-5.0); Alkaline Phosphatase 112 U/L (39-117); Anion Gap 15 (12-20); Aspartate Amino Transferase 99 U/L (5-37); Bilirubin Direct 0.3 mg/dL (0.0-0.5); Bilirubin Total 0.7 mg/dL (0.0-1.0); Blood Urea Nitrogen 57 mg/dL (9-16); Calcium 9.5 mg/dL (8.4-10.2); Carbon Dioxide 18 mmol/L (22-29); Chloride 108 mmol/L (96-108); Estimated Glomerular Filt Rate 34; Glucose Random 119 mg/dL (60-115); Magnesium 2.2 mg/dL (1.6-2.6); Potassium 5.2 mmol/L (3.3-5.1); Sodium 136 mmol/L (135-145)
[2020-11-25 15:56] LABS: B Type Natriuretic Peptide 1870 pg/mL (<100)
[2020-11-25 15:59] LABS: Troponin-I High Sensitivity 113.4 ng/L (<3.5-35.0)
--- NOTE | 2020-11-25 16:08 | PM.CNCAR ---
History of Present Illness History of Present Illness Date of Service: 11/25/20 Chief complaint: low heart rate Narrative: This is a cardiology consultation regarding bradycardia and heart block. Patient has had sensations of shortness of breath for the last 2 weeks or so. He has also had some dizziness and generalized fatigue. No known cardiac problems but he was found to be bradycardic and sent to the ER for evaluation. Here, EKG shows two-to-one heart block. Patient denies any known cardiac problems the coronary disease, myocardial infarction of cardiomyopathy or back no other cardiac issues at all. Review of Systems Review of Systems: Yes all other systems are reviewed and are negative Constitutional: Comments: fatigue Cardiovascular: Cardiovascular: Reports as per HPI, Reports no additional cardiovascular complaints, Denies acrocyanosis, Denies cool extremities, Denies painful fingertips, Denies chest pain, Denies chest pain at rest, Denies diaphoresis, Denies syncope, Denies irregular heart rhythm, Denies claudication, Denies leg edema, Reports lightheadedness, Denies palpitations and Reports dyspnea Respiratory: Respiratory: Reports dyspnea Neurologic: Denies syncope Endocrine: Endocrine: Denies palpitations PMFSH Past Medical History Medical History Back pain Diabetes mellitus History of COVID-19 Hyperlipidemia Hypertension Iron deficiency anemia Ulcer of left heel Urinary retention Family History Family History Brother Testicular cancer Surgical History Surgical History History of back surgery History of esophagogastroduodenoscopy History of left hip replacement Hx of cataract extraction Hx of colonoscopy Social History Social History Household Members: Significant Other Housing: House Do you presently have visiting nurse or other home services: Yes Alcohol intake: never Patient Tobacco Use Status: Tobacco use Unknown Use of substances other than those prescribed or required for medical reasons: No Advance Directives: No Advance Directives Information Provided: No service: No Current occupational status: retired Meds Allergies Allergy/AdvReac Type Severity Reaction Status Date / Time lisinopril [LISINOPRIL] Allergy Severe ANGIOEDEMA Verified 06/11/20 08:21 Active Medications: Current Medications Generic Name Dose Route Start Last Admin Trade Name Morganq PRN Reason Stop Dose Admin Calcium Gluconate 2 gm in 100 mls @ 50 mls/hr 11/25/20 15:13 11/25/20 15:31 Calcium Gluconate IV 11/25/20 17:12 50 mls/hr ONCE ONE Administration Pharmacy Consult 1 each 11/25/20 15:13 Consult Rx Perform Med Rec MISCELLANE ONCE PRN Consult order Home Medications Medication Instructions Recorded Confirmed Last Taken Type metoprolol tartrate 25 mg tablet 25 mg PO BID 03/17/20 11/23/20 06/10/20 History simvastatin 40 mg tablet 40 mg PO QPM 03/17/20 11/23/20 06/10/20 History Nexium 24HR 06/11/20 06/10/20 History dulaglutide 1.5 mg/0.5 mL 0.5 ml SUBCUT QWEEK 06/11/20 11/23/20 06/05/20 History subcutaneous pen injector (Trulicity) blood sugar diagnostic (OneTouch #10 ea 11/11/20 Unknown History Verio test strips) glipizide 2.5 mg tablet, extended 2.5 mg PO DAILY 11/11/20 11/23/20 Unknown History release 24 hr pantoprazole 20 mg tablet,delayed 20 mg PO DAILY 11/11/20 11/23/20 Unknown History release Physical Exam Vital Signs: Vital Signs: Last Vital Signs Pulse 38 L 11/25/20 15:55 Resp 15 11/25/20 15:55 BP 132/62 11/25/20 15:55 Pulse Ox 99 11/25/20 15:55 Body Mass Index 27.1 Const: General: cooperative and no acute distress HENMT: Other: Unremarkable Neck: Neck: Yes normal visual inspection Chest: Chest palpation & inspection: normal inspection of the chest Resp: Auscultation: clear to auscultation bilaterally, no crackles and no wheezes Cardio: Jugular venous distension: no JVD Palpation: normal PMI Heart sounds: S1 normal heart sound present, S2 normal heart sound present, no gallops, no murmurs and no rubs GI: Palpation (GI): Soft to palpation Back/Spine/Pelvis: Other: unremarkable Skin: General skin exam: no rashes or lesions noted Neuro: Cranial nerves: Yes Other cranial nerve findings present Extrem: General: Yes no clubbing, cyanosis or edema Psych: Mental Status: other Results Labs and Meds Result diagrams: 11/25/20 15:23 11/25/20 15:23 Lab results: Laboratory Results - last 24 hr 11/25/20 11/25/20 11/25/20 15:23 15:23 15:23 WBC 10.5 RBC 4.04 L Hgb 10.4 L Hct 33.6 L MCV 83.2 MCH 25.7 L MCHC 31.0 RDW 15.9 Plt Count 341 MPV 10.9 Immature Gran % (Auto) 0.5 H Neut % (Auto) 79.5 H Lymph % (Auto) 10.2 L Monona % (Auto) 7.6 Eos % (Auto) 1.6 Baso % (Auto) 0.6 Lymph # (Auto) 1.1 L [place] # (Auto) 0.8 Eos # (Auto) 0.2 Baso # (Auto) 0.1 Abs Immat Gran (auto) 0.05 H Absolute Neuts (auto) 8.3 Absolute Nucleated RBC 0.000 Nucleated RBC % (auto) 0.0 PT INR APTT Sodium 136 Potassium 5.2 H Chloride 108 Carbon Dioxide 18 L Anion Gap 15 BUN 57 H D Creatinine 1.93 H Estim Creat Clear Calc 31.0 Estimated GFR 34 Random Glucose 119 H Calcium 9.5 Magnesium 2.2 Total Bilirubin 0.7 Direct Bilirubin 0.3 AST 99 H ALT 131 H Alkaline Phosphatase 112 D Troponin I High Sens B-Natriuretic Peptide 1870 H Total Protein 7.0 Albumin 3.9 D 11/25/20 11/25/20 15:23 15:23 WBC RBC Hgb Hct MCV MCH MCHC RDW Plt Count MPV Immature Gran % (Auto) Neut % (Auto) Lymph % (Auto) Monona % (Auto) Eos % (Auto) Baso % (Auto) Lymph # (Auto) Mon[place] # (Auto) Eos # (Auto) Baso # (Auto) Abs Immat Gran (auto) Absolute Neuts (auto) Absolute Nucleated RBC Nucleated RBC % (auto) PT 13.4 H INR 1.2 H APTT 34.0 Sodium Potassium Chloride Carbon Dioxide Anion Gap BUN Creatinine Estim Creat Clear Calc Estimated GFR Random Glucose Calcium Magnesium Total Bilirubin Direct Bilirubin AST ALT Alkaline Phosphatase Troponin I High Sens 113.4 H* B-Natriuretic Peptide Total Protein Albumin ECG Interpretation: EKG shows underlying sinus rhythm and 2-1 heart block. There is bifascicular block as well. Ventricular rate is 40/minute. Atrial rate is 80/Min. In the previous EKG from April of 2019, there was underlying bifascicular block with prolonged VT; ventricular rate at that time was 102/Min. Assessment and Plan (1) Second degree heart block: Status: Acute Symptomatic second-degree heart block with 2-1 presentation. Labs show high sensitive troponins of 113. This is most likely from the heart block itself. Doubt any acute coronary syndrome as he has no angina. Cardiac BNP is elevated at 1870. That again could be from the heart block but we will need to evaluate his LV function with an echocardiogram. Creatinine is 1.93. BUN is 57. At this time: Will hold his beta-blockers. Discussed about permanent pacemaker implantation and he is agreeable. Potentially scheduled for tomorrow. We will follow up with you. Procedures Date of Service Date of Service: 11/25/20
[2020-11-25 16:10] LABS: TSH reflex Free T4 4.91 uIU/mL (0.32-4.0)
[2020-11-25 16:17] LABS: COVID-19 Test Negative (Negative)
[2020-11-25] MEDS: Furosemide 20 MG/2 ML VIAL IVPUSH (16:33)
[2020-11-25 16:42] LABS: Free T4 (Free Thyroxine) 0.92 ng/dL (0.71-1.85)
[2020-11-25] MEDS: 0.9 % Sodium Chloride 1,000 ML 20 ML IVCONT (17:29)
--- NOTE | 2020-11-25 20:00 | P.HPCC_ITS ---
History of Present Illness Date of Service: 11/25/20 Chief Complaint: dyspnea and fatigue A 80-year-old male with a past medical history of left chronic heel ulcer, DM2, HTN, HLD, iron deficiency anemia, urinary retention and back pain came to the ED this morning c/o 1 week fatigue and shortness of breath which is worsened over the last day. Was found to be in a 2-1 heart block, labs chest x-ray IV glucagon and calcium given, labs remarkable for BUN/Cr 57/1.93, BNP 1870, trop 113 Admitted to ICU for monitoring. Patient is scheduled to have surgery with Dr. Vanegas on Saturday for debridement of his left heel ulcer Review of Systems Review of Systems: Yes all other systems are reviewed and are negative PMFSH Past Medical History Medical History Back pain Diabetes mellitus History of COVID-19 Hyperlipidemia Hypertension Iron deficiency anemia Ulcer of left heel Urinary retention Family History Family History Brother Testicular cancer Surgical History Surgical History History of back surgery History of esophagogastroduodenoscopy History of left hip replacement Hx of cataract extraction Hx of colonoscopy Social History Social History Household Members: Significant Other Housing: House Do you presently have visiting nurse or other home services: Yes Alcohol intake: never Patient Tobacco Use Status: Tobacco use Unknown Use of substances other than those prescribed or required for medical reasons: No Advance Directives: No Advance Directives Information Provided: No service: No Current occupational status: retired Meds Allergies Allergy/AdvReac Type Severity Reaction Status Date / Time lisinopril [LISINOPRIL] Allergy Severe ANGIOEDEMA Verified 11/25/20 16:27 Active Medications: Current Medications Generic Name Dose Route Start Last Admin Trade Name Freq PRN Reason Stop Dose Admin Dextrose 25 gm 11/25/20 16:14 Dextrose 50 % 25 Gm/50 Ml Vial IVPUSH Q15M PRN per Hypoglycemia Standing Ord. Protocol Glucose 15 gm 11/25/20 16:14 Glucose Gel 15 Gm Gel..Gram. PO Q15M PRN per Hypoglycemia Standing Ord. Protocol Sodium Chloride 1,000 mls @ 20 mls/hr 11/25/20 16:15 11/25/20 17:29 Ns IVCONT 20 mls/hr .Q24H JIL Administration Insulin Human Lispro 0 unit 11/25/20 16:30 Insulin Lispro 100 Unit/Ml 3 Ml Vial SUBCUT 11/26/20 16:15 QIDACHS [facility] Protocol Pharmacy Consult 1 each 11/25/20 15:13 Consult Rx Perform Med Rec MISCELLANE ONCE PRN Consult order Home Medications Medication Instructions Recorded Confirmed Last Taken Type metoprolol tartrate 25 mg tablet 25 mg PO BID 03/17/20 11/25/20 11/25/20 History simvastatin 40 mg tablet 40 mg PO QPM 03/17/20 11/25/20 11/24/20 History dulaglutide 1.5 mg/0.5 mL 0.5 ml SUBCUT TH 06/11/20 11/25/20 11/17/20 History subcutaneous pen injector (Trulicity) blood sugar diagnostic (OneTouch #10 ea 11/11/20 Unknown History Verio test strips) pantoprazole 20 mg tablet,delayed 20 mg PO DAILY 11/11/20 11/25/20 11/24/20 History release diphenhydramine 25 1 tab PO BEDTIME PRN 11/25/20 11/25/20 Unknown History mg-acetaminophen 500 mg tablet (Tylenol PM Extra Strength) glipizide 2.5 mg tablet, extended 1 tab PO DAILY 11/25/20 11/25/20 11/25/20 History release 24 hr Physical Exam Vital Signs: Vital Signs: Last Vital Signs Pulse 37 L 11/25/20 19:00 Resp 14 11/25/20 19:00 BP 127/55 L 11/25/20 19:00 Pulse Ox 97 11/25/20 19:00 Body Mass Index 27.1 Const: General: cooperative, healthy appearing, comfortable, no acute distress and well developed Nutritional Appearance: average body habitus Orientation/consciousness: patient oriented x3 Limitations: no limitations HENMT: Head: Yes normal to inspection General nose exam: Normal external nose present Face and sinus: Yes normal facial exam Eyes: General: appearance normal, both eyes and all related structures EOM: EOMs intact bilaterally Neck: Neck: Yes normal visual inspection and Yes full ROM Resp: Effort & Inspection: normal respiratory effort and able to speak in complete sentences Auscultation: clear to auscultation bilaterally Cardio: Rate: bradycardic Rhythm: regular rhythm Heart sounds: normal S1 and S2 GI: Inspection: Yes normal to inspection Palpation (GI): Soft to palpation and nontender Skin: General skin exam: no rashes or lesions noted Neuro: General: patient oriented x3 Extrem: General: Yes normal to inspection Results Labs CBC and Chem 7: 11/25/20 15:23 11/25/20 15:23 Labs: Laboratory Results - last 24 hr 11/25/20 11/25/20 11/25/20 15:23 15:23 15:23 MCV 83.2 MCH 25.7 L MCHC 31.0 RDW 15.9 Plt Count 341 MPV 10.9 Immature Gran % (Auto) 0.5 H Neut % (Auto) 79.5 H Lymph % (Auto) 10.2 L Bartholomew % (Auto) 7.6 Eos % (Auto) 1.6 Baso % (Auto) 0.6 Lymph # (Auto) 1.1 L Bartholomew # (Auto) 0.8 Eos # (Auto) 0.2 Baso # (Auto) 0.1 Abs Immat Gran (auto) 0.05 H Absolute Neuts (auto) 8.3 Absolute Nucleated RBC 0.000 Nucleated RBC % (auto) 0.0 PT INR APTT Anion Gap 15 Estim Creat Clear Calc 31.0 Estimated GFR 34 Random Glucose 119 H Calcium 9.5 Magnesium 2.2 Total Bilirubin 0.7 Direct Bilirubin 0.3 AST 99 H ALT 131 H Alkaline Phosphatase 112 D Troponin I High Sens B-Natriuretic Peptide 1870 H Total Protein 7.0 Albumin 3.9 D TSH Free T4 COVID-19 (ROM) COVID-19 Clin Com 11/25/20 11/25/20 11/25/20 15:23 15:23 15:23 MCV MCH MCHC RDW Plt Count MPV Immature Gran % (Auto) Neut % (Auto) Lymph % (Auto) Bartholomew % (Auto) Eos % (Auto) Baso % (Auto) Lymph # (Auto) Bartholomew # (Auto) Eos # (Auto) Baso # (Auto) Abs Immat Gran (auto) Absolute Neuts (auto) Absolute Nucleated RBC Nucleated RBC % (auto) PT 13.4 H INR 1.2 H APTT 34.0 Anion Gap Estim Creat Clear Calc Estimated GFR Random Glucose Calcium Magnesium Total Bilirubin Direct Bilirubin AST ALT Alkaline Phosphatase Troponin I High Sens 113.4 H* B-Natriuretic Peptide Total Protein Albumin TSH Free T4 COVID-19 (ROM) Negative COVID-19 Clin Com See Note 11/25/20 15:23 MCV MCH MCHC RDW Plt Count MPV Immature Gran % (Auto) Neut % (Auto) Lymph % (Auto) Bartholomew % (Auto) Eos % (Auto) Baso % (Auto) Lymph # (Auto) Bartholomew # (Auto) Eos # (Auto) Baso # (Auto) Abs Immat Gran (auto) Absolute Neuts (auto) Absolute Nucleated RBC Nucleated RBC % (auto) PT INR APTT Anion Gap Estim Creat Clear Calc Estimated GFR Random Glucose Calcium Magnesium Total Bilirubin Direct Bilirubin AST ALT Alkaline Phosphatase Troponin I High Sens B-Natriuretic Peptide Total Protein Albumin TSH 4.91 H Free T4 0.92 COVID-19 (ROM) COVID-19 Clin Com Imaging Radiologist's Impressions: Impressions Chest X-Ray 11/25/20 15:14 IMPRESSION: Subtle patchy bilateral interstitial opacities are seen. Viral pneumonitis could give this appearance. Possible new small right pleural effusion. Assessment and Plan (1) Second degree heart block: Status: Acute (2) Acute UTI: Status: Acute (3) Decubitus ulcer, heel: Status: Acute (4) DEON (acute kidney injury): Status: Acute (5) Elevated troponin: Status: Acute (6) Urinary retention: Status: Acute A 80-year-old male with a past medical history of left chronic heel ulcer, DM2, HTN, HLD, iron deficiency anemia, urinary retention and back pain came to the ED this morning c/o 1 week fatigue and shortness of breath which is worsened over the last day. Was found to be in a 2-1 heart block, labs, chest x-ray. IV glucagon and calcium given, labs remarkable for BUN/Cr 57/1.93, BNP 1870, trop 113. Monitor vitals, troponin, I&O, gentle diuresis, and plan for permanent pacemaker tomorrow.
[2020-11-25 20:24] LABS: Glucose, Whole Blood 94 mg/dL (60-115)
[2020-11-25 22:03] LABS: Glucose, Whole Blood 93 mg/dL (60-115)
[2020-11-25 22:11] LABS: B Type Natriuretic Peptide 2059 pg/mL (<100); Troponin-I High Sensitivity 172.6 ng/L (<3.5-35.0)
[2020-11-25] MEDS: Furosemide 40 MG/4 ML VIAL IVPUSH (22:42)
[2020-11-26] VITALS (15 sets, daily range): BP systolic 100–143; BP diastolic 45–77; PULSE 34–91; RESP 11–21; TEMP 36–36.5; O2SAT 93–99; BMI 27.1
[2020-11-26] MEDS: Glucose Gel 15 GM GEL..GRAM. PO (00:12)
[2020-11-26 00:19] LABS: Glucose, Whole Blood 71 mg/dL (60-115)
[2020-11-26 01:22] LABS: Glucose, Whole Blood 75 mg/dL (60-115)
[2020-11-26 01:22] LABS: Glucose, Whole Blood 163 mg/dL (60-115)
[2020-11-26 05:44] LABS: MANUAL DIFF FLAG NO
[2020-11-26 05:52] LABS: Basophils Percent Auto 0.4 % (0-2); Eosinophils Absolute Auto 0.3 X10*3/uL (0.0-0.4); Eosinophils Percent Auto 2.8 % (0-4); Hematocrit 28.3 % (42-52); Hemoglobin 8.9 g/dl (14.0-18.0); Imm Gran Abs Auto 0.04 X10*3/uL (0.00-0.03); Imm Gran Pct Auto 0.4 % (0.0-0.4); Lymphocytes Absolute Auto 1.3 X10*3/uL (1.2-4.9); Lymphocytes Percent Auto 12.8 % (20-40); Mean Corpuscular HGB Conc 31.4 g/dl (31.0-36.0); Mean Corpuscular Hemoglobin 25.5 pg (27.0-33.0); Mean Corpuscular Volume 81.1 fL (80-98); Monocytes Absolute Auto 0.9 X10*3/uL (0.1-1.2); Monocytes Percent Auto 9.6 % (2-11); Neutrophils Absolute Auto 7.3 X10*3/uL (2.0-8.3); Platelet Count 253 X10*3/uL (160-400); Red Blood Count 3.49 X10*6/uL (4.60-5.80); Red Cell Distribution Width 15.6 % (11.0-16.0); White Blood Count 9.8 X10*3/uL (4.8-10.8)
[2020-11-26 06:07] LABS: Alanine Aminotransferase 98 U/L (0-40); Albumin Level 3.2 g/dL (3.5-5.0); Alkaline Phosphatase 99 U/L (39-117); Anion Gap 15 (12-20); Aspartate Amino Transferase 78 U/L (5-37); Bilirubin Total 0.4 mg/dL (0.0-1.0); Blood Urea Nitrogen 53 mg/dL (9-16); Calcium 9.1 mg/dL (8.4-10.2); Carbon Dioxide 18 mmol/L (22-29); Chloride 110 mmol/L (96-108); Estimated Glomerular Filt Rate 35; Glucose Random 96 mg/dL (60-115); INTERNATIONAL NORM RATIO 1.2 (0.9-1.1); Phosphorus 4.1 mg/dL (2.7-4.5); Potassium 3.9 mmol/L (3.3-5.1); Prothrombin Time 13.1 SEC (9.9-13.0); Sodium 139 mmol/L (135-145); Total Protein 5.7 g/dL (6.5-8.0)
[2020-11-26 06:24] LABS: Glucose, Whole Blood 99 mg/dL (60-115)
[2020-11-26 06:26] LABS: B Type Natriuretic Peptide 2102 pg/mL (<100); Troponin-I High Sensitivity 216.8 ng/L (<3.5-35.0)
[2020-11-26 07:31] LABS: Glucose, Whole Blood 87 mg/dL (60-115)
--- NOTE | 2020-11-26 10:43 | HO.ANESPROP2 ---
[facility] Active Problems Active Problems: All Active Problems (Updated 11/25/20 @ 16:11 by Kannan Maddox MD) Second degree heart block (Acute) Acute UTI (Acute) Cao catheter problem (Acute) Gram-negative bacteremia (Acute) Decubitus ulcer, heel (Acute) Heart block (Acute) DEON (acute kidney injury) (Acute) Elevated troponin (Acute) Urinary retention (Acute) Past Medical History Medical History Back pain Diabetes mellitus History of COVID-19 Hyperlipidemia Hypertension Iron deficiency anemia Ulcer of left heel Urinary retention Family History Family History Brother Testicular cancer Family history of problems with anesthesia: No Surgical History Surgical History History of back surgery History of esophagogastroduodenoscopy History of left hip replacement Hx of cataract extraction Hx of colonoscopy History of Problems with Anesthesia: No Social History Social History Household Members: Spouse Housing: House Do you presently have visiting nurse or other home services: Yes ([facility] 2x wk for wound care to left heel) Alcohol intake: never Patient Tobacco Use Status: Tobacco use Unknown Use of substances other than those prescribed or required for medical reasons: No Currently Displaying Signs/Symptoms of Drug Intoxication Withdrawal: No Have you been hit, kicked, punched, or otherwise hurt by someone within the past year? If so, by whom?: No Do you feel safe in your current relationship?: Yes Is there a partner from a previous relationship who is making you feel unsafe now?: No Are you made to feel afraid or neglected: No Advance Directives: No Advance Directives Information Provided: No Do you have thoughts of harming others: None Do you have a plan to hurt others: No Plan Recently lost weight without trying: Yes How much weight loss: Unsure Eating poorly because of decreased appetite: Yes Nutrition screen score: 5 Poor oral hygiene: No service: No Current occupational status: retired Meds Allergies Allergy/AdvReac Type Severity Reaction Status Date / Time lisinopril [LISINOPRIL] Allergy Severe ANGIOEDEMA Verified 11/25/20 16:27 Active Medications: Current Medications Generic Name Dose Route Start Last Admin Trade Name Frewei PRN Reason Stop Dose Admin Dextrose 25 gm 11/25/20 16:14 11/26/20 00:42 Dextrose 50 % 25 Gm/50 Ml Vial IVPUSH 25 gm Q15M PRN Administration per Hypoglycemia Standing Ord. Protocol Glucose 15 gm 11/25/20 16:14 11/26/20 00:12 Glucose Gel 15 Gm Gel..Gram. PO 15 gm Q15M PRN Administration per Hypoglycemia Standing Ord. Protocol Sodium Chloride 1,000 mls @ 20 mls/hr 11/25/20 16:15 11/25/20 17:29 Ns IVCONT 20 mls/hr .Q24H JIL Administration Insulin Human Lispro 0 unit 11/25/20 16:30 11/26/20 08:40 Insulin Lispro 100 Unit/Ml 3 Ml Vial SUBCUT 11/26/20 16:15 Not Given QIDACHS [facility] Protocol Pharmacy Consult 1 each 11/25/20 15:13 Consult Rx Perform Med Rec MISCELLANE ONCE PRN Consult order Home Medications Medication Instructions Recorded Confirmed Last Taken Type metoprolol tartrate 25 mg tablet 25 mg PO BID 03/17/20 11/25/20 11/25/20 History simvastatin 40 mg tablet 40 mg PO QPM 03/17/20 11/25/20 11/24/20 History dulaglutide 1.5 mg/0.5 mL 0.5 ml SUBCUT TH 06/11/20 11/25/20 11/17/20 History subcutaneous pen injector (Trulicity) blood sugar diagnostic (OneTouch #10 ea 11/11/20 Unknown History Verio test strips) pantoprazole 20 mg tablet,delayed 20 mg PO DAILY 11/11/20 11/25/20 11/24/20 History release diphenhydramine 25 1 tab PO BEDTIME PRN 11/25/20 11/25/20 Unknown History mg-acetaminophen 500 mg tablet (Tylenol PM Extra Strength) glipizide 2.5 mg tablet, extended 1 tab PO DAILY 11/25/20 11/25/20 11/25/20 History release 24 hr Exam Exam Date and Time: November 26, 2020 1043 Height,Weight and Vital Signs: Height 5 ft 9 in Weight 83.3 kg Last Vital Signs Temp 97.6 F 11/26/20 08:00 Pulse 34 L 11/26/20 10:00 Resp 19 11/26/20 10:00 BP 114/47 L 11/26/20 10:00 Pulse Ox 93 11/26/20 10:00 Pertinent Lab Results Pertinent Lab Results: Laboratory Tests 11/25/20 11/25/20 11/25/20 15:23 15:23 15:23 WBC 10.5 RBC 4.04 L Hgb 10.4 L Hct 33.6 L MCV 83.2 MCH 25.7 L MCHC 31.0 RDW 15.9 Plt Count 341 MPV 10.9 Immature Gran % (Auto) 0.5 H Neut % (Auto) 79.5 H Lymph % (Auto) 10.2 L [place] % (Auto) 7.6 Eos % (Auto) 1.6 Baso % (Auto) 0.6 Lymph # (Auto) 1.1 L [place] # (Auto) 0.8 Eos # (Auto) 0.2 Baso # (Auto) 0.1 Abs Immat Gran (auto) 0.05 H Absolute Neuts (auto) 8.3 Absolute Nucleated RBC 0.000 Nucleated RBC % (auto) 0.0 PT INR APTT Sodium 136 Potassium 5.2 H Chloride 108 Carbon Dioxide 18 L Anion Gap 15 BUN 57 H D Creatinine 1.93 H Estim Creat Clear Calc 31.0 Estimated GFR 34 POC Glucose Random Glucose 119 H Calcium 9.5 Phosphorus Magnesium 2.2 Total Bilirubin 0.7 Direct Bilirubin 0.3 AST 99 H ALT 131 H Alkaline Phosphatase 112 D Troponin I High Sens B-Natriuretic Peptide 1870 H Total Protein 7.0 Albumin 3.9 D TSH Free T4 COVID-19 (ROM) COVID-19 Clin Com 11/25/20 11/25/20 11/25/20 15:23 15:23 15:23 WBC RBC Hgb Hct MCV MCH MCHC RDW Plt Count MPV Immature Gran % (Auto) Neut % (Auto) Lymph % (Auto) [place] % (Auto) Eos % (Auto) Baso % (Auto) Lymph # (Auto) [place] # (Auto) Eos # (Auto) Baso # (Auto) Abs Immat Gran (auto) Absolute Neuts (auto) Absolute Nucleated RBC Nucleated RBC % (auto) PT 13.4 H INR 1.2 H APTT 34.0 Sodium Potassium Chloride Carbon Dioxide Anion Gap BUN Creatinine Estim Creat Clear Calc Estimated GFR POC Glucose Random Glucose Calcium Phosphorus Magnesium Total Bilirubin Direct Bilirubin AST ALT Alkaline Phosphatase Troponin I High Sens 113.4 H* B-Natriuretic Peptide Total Protein Albumin TSH Free T4 COVID-19 (ROM) Negative COVID-19 Clin Com See Note 11/25/20 11/25/20 11/25/20 15:23 20:21 21:16 WBC RBC Hgb Hct MCV MCH MCHC RDW Plt Count MPV Immature Gran % (Auto) Neut % (Auto) Lymph % (Auto) [place] % (Auto) Eos % (Auto) Baso % (Auto) Lymph # (Auto) [place] # (Auto) Eos # (Auto) Baso # (Auto) Abs Immat Gran (auto) Absolute Neuts (auto) Absolute Nucleated RBC Nucleated RBC % (auto) PT INR APTT Sodium Potassium Chloride Carbon Dioxide Anion Gap BUN Creatinine Estim Creat Clear Calc Estimated GFR POC Glucose 94 Random Glucose Calcium Phosphorus Magnesium Total Bilirubin Direct Bilirubin AST ALT Alkaline Phosphatase Troponin I High Sens 172.6 H* D B-Natriuretic Peptide 2059 H Total Protein Albumin TSH 4.91 H Free T4 0.92 COVID-19 (ROM) COVID-19 Clin Com 11/25/20 11/26/20 11/26/20 21:56 00:02 00:32 WBC RBC Hgb Hct MCV MCH MCHC RDW Plt Count MPV Immature Gran % (Auto) Neut % (Auto) Lymph % (Auto) [place] % (Auto) Eos % (Auto) Baso % (Auto) Lymph # (Auto) [place] # (Auto) Eos # (Auto) Baso # (Auto) Abs Immat Gran (auto) Absolute Neuts (auto) Absolute Nucleated RBC Nucleated RBC % (auto) PT INR APTT Sodium Potassium Chloride Carbon Dioxide Anion Gap BUN Creatinine Estim Creat Clear Calc Estimated GFR POC Glucose 93 71 75 Random Glucose Calcium Phosphorus Magnesium Total Bilirubin Direct Bilirubin AST ALT Alkaline Phosphatase Troponin I High Sens B-Natriuretic Peptide Total Protein Albumin TSH Free T4 COVID-19 (ROM) COVID-19 Clin Com 11/26/20 11/26/20 11/26/20 01:18 05:19 05:19 WBC 9.8 RBC 3.49 L Hgb 8.9 L Hct 28.3 L MCV 81.1 MCH 25.5 L MCHC 31.4 RDW 15.6 Plt Count 253 D MPV 11.0 Immature Gran % (Auto) 0.4 Neut % (Auto) 74.0 H Lymph % (Auto) 12.8 L [place] % (Auto) 9.6 Eos % (Auto) 2.8 Baso % (Auto) 0.4 Lymph # (Auto) 1.3 [place] # (Auto) 0.9 Eos # (Auto) 0.3 Baso # (Auto) 0.0 Abs Immat Gran (auto) 0.04 H Absolute Neuts (auto) 7.3 Absolute Nucleated RBC 0.000 Nucleated RBC % (auto) 0.0 PT 13.1 H INR 1.2 H APTT 31.0 Sodium Potassium Chloride Carbon Dioxide Anion Gap BUN Creatinine Estim Creat Clear Calc Estimated GFR POC Glucose 163 H Random Glucose Calcium Phosphorus Magnesium Total Bilirubin Direct Bilirubin AST ALT Alkaline Phosphatase Troponin I High Sens B-Natriuretic Peptide Total Protein Albumin TSH Free T4 COVID-19 (ROM) COVID-19 Clin Com 11/26/20 11/26/20 11/26/20 05:19 05:19 06:21 WBC RBC Hgb Hct MCV MCH MCHC RDW Plt Count MPV Immature Gran % (Auto) Neut % (Auto) Lymph % (Auto) [place] % (Auto) Eos % (Auto) Baso % (Auto) Lymph # (Auto) [place] # (Auto) Eos # (Auto) Baso # (Auto) Abs Immat Gran (auto) Absolute Neuts (auto) Absolute Nucleated RBC Nucleated RBC % (auto) PT INR APTT Sodium 139 Potassium 3.9 D Chloride 110 H Carbon Dioxide 18 L Anion Gap 15 BUN 53 H Creatinine 1.87 H Estim Creat Clear Calc 32.0 Estimated GFR 35 POC Glucose 99 Random Glucose 96 Calcium 9.1 Phosphorus 4.1 Magnesium 2.0 Total Bilirubin 0.4 Direct Bilirubin AST 78 H ALT 98 H Alkaline Phosphatase 99 Troponin I High Sens 216.8 H* B-Natriuretic Peptide 2102 H Total Protein 5.7 L Albumin 3.2 L TSH Free T4 COVID-19 (ROM) COVID-19 Clin Com 11/26/20 07:28 WBC RBC Hgb Hct MCV MCH MCHC RDW Plt Count MPV Immature Gran % (Auto) Neut % (Auto) Lymph % (Auto) [place] % (Auto) Eos % (Auto) Baso % (Auto) Lymph # (Auto) [place] # (Auto) Eos # (Auto) Baso # (Auto) Abs Immat Gran (auto) Absolute Neuts (auto) Absolute Nucleated RBC Nucleated RBC % (auto) PT INR APTT Sodium Potassium Chloride Carbon Dioxide Anion Gap BUN Creatinine Estim Creat Clear Calc Estimated GFR POC Glucose 87 Random Glucose Calcium Phosphorus Magnesium Total Bilirubin Direct Bilirubin AST ALT Alkaline Phosphatase Troponin I High Sens B-Natriuretic Peptide Total Protein Albumin TSH Free T4 COVID-19 (ROM) COVID-19 Clin Com Assessment and Plan Final Anesthetic Review Family History of Problems with Anesthesia: No History of Problems with Anesthesia: No
[2020-11-26 11:28] LABS: Glucose, Whole Blood 88 mg/dL (60-115)
--- NOTE | 2020-11-26 12:12 | PM.PNCARD ---
Subjective Subjective Date of Service: 11/26/20 Interval history: He statest that he feels OK. No specific cardiac symptoms, but he has not moved from his bed. Review of Systems Review of Systems Yes all other systems are reviewed and are negative Cardiovascular: Reports as per HPI, Reports no additional cardiovascular complaints, Denies acrocyanosis, Denies cool extremities, Denies painful fingertips, Denies chest pain, Denies chest pain at rest, Denies diaphoresis, Denies syncope, Denies irregular heart rhythm, Denies claudication, Denies leg edema, Reports lightheadedness, Denies palpitations and Reports dyspnea Respiratory: Reports dyspnea Denies syncope Endocrine: Denies palpitations Physical Exam Vital Signs: Last Vital Signs Temp 96.8 F 11/26/20 12:00 Pulse 38 L 11/26/20 12:00 Resp 19 11/26/20 12:00 BP 110/48 L 11/26/20 12:00 Pulse Ox 94 11/26/20 12:00 Body Mass Index 27.1 Const General: cooperative and no acute distress [facility] Other: Unremarkable Neck Neck: Yes normal visual inspection Chest Chest palpation & inspection: normal inspection of the chest Resp Auscultation: clear to auscultation bilaterally, no crackles and no wheezes Cardio Jugular venous distension: no JVD Palpation: normal PMI Heart sounds: S1 normal heart sound present, S2 normal heart sound present, no gallops, no murmurs and no rubs GI Palpation (GI): Soft to palpation Back/Spine/Pelvis Other: unremarkable Skin General skin exam: no rashes or lesions noted Neuro Cranial nerves: Yes Other cranial nerve findings present Extrem General: Yes no clubbing, cyanosis or edema Psych Mental Status: other Results Labs and Meds Result diagrams: 11/26/20 05:19 11/26/20 05:19 Lab results: Laboratory Results - last 24 hr 11/25/20 11/25/20 11/25/20 15:23 15:23 15:23 WBC 10.5 RBC 4.04 L Hgb 10.4 L Hct 33.6 L MCV 83.2 MCH 25.7 L MCHC 31.0 RDW 15.9 Plt Count 341 MPV 10.9 Immature Gran % (Auto) 0.5 H Neut % (Auto) 79.5 H Lymph % (Auto) 10.2 L [place] % (Auto) 7.6 Eos % (Auto) 1.6 Baso % (Auto) 0.6 Lymph # (Auto) 1.1 L [place] # (Auto) 0.8 Eos # (Auto) 0.2 Baso # (Auto) 0.1 Abs Immat Gran (auto) 0.05 H Absolute Neuts (auto) 8.3 Absolute Nucleated RBC 0.000 Nucleated RBC % (auto) 0.0 PT INR APTT Sodium 136 Potassium 5.2 H Chloride 108 Carbon Dioxide 18 L Anion Gap 15 BUN 57 H D Creatinine 1.93 H Estim Creat Clear Calc 31.0 Estimated GFR 34 POC Glucose Random Glucose 119 H Calcium 9.5 Phosphorus Magnesium 2.2 Total Bilirubin 0.7 Direct Bilirubin 0.3 AST 99 H ALT 131 H Alkaline Phosphatase 112 D Troponin I High Sens B-Natriuretic Peptide 1870 H Total Protein 7.0 Albumin 3.9 D TSH Free T4 COVID-19 (ROM) COVID-19 [employer] 11/25/20 11/25/20 11/25/20 15:23 15:23 15:23 WBC RBC Hgb Hct MCV MCH MCHC RDW Plt Count MPV Immature Gran % (Auto) Neut % (Auto) Lymph % (Auto) [place] % (Auto) Eos % (Auto) Baso % (Auto) Lymph # (Auto) [place] # (Auto) Eos # (Auto) Baso # (Auto) Abs Immat Gran (auto) Absolute Neuts (auto) Absolute Nucleated RBC Nucleated RBC % (auto) PT 13.4 H INR 1.2 H APTT 34.0 Sodium Potassium Chloride Carbon Dioxide Anion Gap BUN Creatinine Estim Creat Clear Calc Estimated GFR POC Glucose Random Glucose Calcium Phosphorus Magnesium Total Bilirubin Direct Bilirubin AST ALT Alkaline Phosphatase Troponin I High Sens 113.4 H* B-Natriuretic Peptide Total Protein Albumin TSH Free T4 COVID-19 (ROM) Negative COVID-19 [employer] Com See Note 11/25/20 11/25/20 11/25/20 15:23 20:21 21:16 WBC RBC Hgb Hct MCV MCH MCHC RDW Plt Count MPV Immature Gran % (Auto) Neut % (Auto) Lymph % (Auto) [place] % (Auto) Eos % (Auto) Baso % (Auto) Lymph # (Auto) [place] # (Auto) Eos # (Auto) Baso # (Auto) Abs Immat Gran (auto) Absolute Neuts (auto) Absolute Nucleated RBC Nucleated RBC % (auto) PT INR APTT Sodium Potassium Chloride Carbon Dioxide Anion Gap BUN Creatinine Estim Creat Clear Calc Estimated GFR POC Glucose 94 Random Glucose Calcium Phosphorus Magnesium Total Bilirubin Direct Bilirubin AST ALT Alkaline Phosphatase Troponin I High Sens 172.6 H* D B-Natriuretic Peptide 2059 H Total Protein Albumin TSH 4.91 H Free T4 0.92 COVID-19 (ROM) COVID-19 Clin Com 11/25/20 11/26/20 11/26/20 21:56 00:02 00:32 WBC RBC Hgb Hct MCV MCH MCHC RDW Plt Count MPV Immature Gran % (Auto) Neut % (Auto) Lymph % (Auto) [place] % (Auto) Eos % (Auto) Baso % (Auto) Lymph # (Auto) [place] # (Auto) Eos # (Auto) Baso # (Auto) Abs Immat Gran (auto) Absolute Neuts (auto) Absolute Nucleated RBC Nucleated RBC % (auto) PT INR APTT Sodium Potassium Chloride Carbon Dioxide Anion Gap BUN Creatinine Estim Creat Clear Calc Estimated GFR POC Glucose 93 71 75 Random Glucose Calcium Phosphorus Magnesium Total Bilirubin Direct Bilirubin AST ALT Alkaline Phosphatase Troponin I High Sens B-Natriuretic Peptide Total Protein Albumin TSH Free T4 COVID-19 (ROM) COVID-19 Clin Com 11/26/20 11/26/20 11/26/20 01:18 05:19 05:19 WBC 9.8 RBC 3.49 L Hgb 8.9 L Hct 28.3 L MCV 81.1 MCH 25.5 L MCHC 31.4 RDW 15.6 Plt Count 253 D MPV 11.0 Immature Gran % (Auto) 0.4 Neut % (Auto) 74.0 H Lymph % (Auto) 12.8 L [place] % (Auto) 9.6 Eos % (Auto) 2.8 Baso % (Auto) 0.4 Lymph # (Auto) 1.3 [place] # (Auto) 0.9 Eos # (Auto) 0.3 Baso # (Auto) 0.0 Abs Immat Gran (auto) 0.04 H Absolute Neuts (auto) 7.3 Absolute Nucleated RBC 0.000 Nucleated RBC % (auto) 0.0 PT 13.1 H INR 1.2 H APTT 31.0 Sodium Potassium Chloride Carbon Dioxide Anion Gap BUN Creatinine Estim Creat Clear Calc Estimated GFR POC Glucose 163 H Random Glucose Calcium Phosphorus Magnesium Total Bilirubin Direct Bilirubin AST ALT Alkaline Phosphatase Troponin I High Sens B-Natriuretic Peptide Total Protein Albumin TSH Free T4 COVID-19 (ROM) COVID-19 [employer] 11/26/20 11/26/20 11/26/20 05:19 05:19 06:21 WBC RBC Hgb Hct MCV MCH MCHC RDW Plt Count MPV Immature Gran % (Auto) Neut % (Auto) Lymph % (Auto) [place] % (Auto) Eos % (Auto) Baso % (Auto) Lymph # (Auto) [place] # (Auto) Eos # (Auto) Baso # (Auto) Abs Immat Gran (auto) Absolute Neuts (auto) Absolute Nucleated RBC Nucleated RBC % (auto) PT INR APTT Sodium 139 Potassium 3.9 D Chloride 110 H Carbon Dioxide 18 L Anion Gap 15 BUN 53 H Creatinine 1.87 H Estim Creat Clear Calc 32.0 Estimated GFR 35 POC Glucose 99 Random Glucose 96 Calcium 9.1 Phosphorus 4.1 Magnesium 2.0 Total Bilirubin 0.4 Direct Bilirubin AST 78 H ALT 98 H Alkaline Phosphatase 99 Troponin I High Sens 216.8 H* B-Natriuretic Peptide 2102 H Total Protein 5.7 L Albumin 3.2 L TSH Free T4 COVID-19 (ROM) COVID-19 [employer] 11/26/20 11/26/20 07:28 11:24 WBC RBC Hgb Hct MCV MCH MCHC RDW Plt Count MPV Immature Gran % (Auto) Neut % (Auto) Lymph % (Auto) [place] % (Auto) Eos % (Auto) Baso % (Auto) Lymph # (Auto) [place] # (Auto) Eos # (Auto) Baso # (Auto) Abs Immat Gran (auto) Absolute Neuts (auto) Absolute Nucleated RBC Nucleated RBC % (auto) PT INR APTT Sodium Potassium Chloride Carbon Dioxide Anion Gap BUN Creatinine Estim Creat Clear Calc Estimated GFR POC Glucose 87 88 Random Glucose Calcium Phosphorus Magnesium Total Bilirubin Direct Bilirubin AST ALT Alkaline Phosphatase Troponin I High Sens B-Natriuretic Peptide Total Protein Albumin TSH Free T4 COVID-19 (ROM) COVID-19 [employer] [facility] Radiologist's impression: Impressions Chest X-Ray 11/25/20 15:14 IMPRESSION: Subtle patchy bilateral interstitial opacities are seen. Viral pneumonitis could give this appearance. Possible new small right pleural effusion. Progress Note: A&P Assessment and plan (1) Complete heart block: Status: Acute (2) Second degree heart block: Status: Acute Assessment and Plan: Yesterday, rhythm appeared to be second-degree heart block with 2-1 presentation but today, it seems to be rather complete heart block. Labs show high sensitive troponins of 113. This is most likely from the heart block itself. Doubt any acute coronary syndrome as he has no angina. Cardiac BNP is elevated at 1870. That again could be from the heart block but we will need to evaluate his LV function with an echocardiogram. Creatinine is 1.87. BUN is 53. Plans for permanent pacemaker today. Will follow. Fall Risk Details Current Medications: Current Medications Generic Name Dose Route Start Last Admin Trade Name Freq PRN Reason Stop Dose Admin Dextrose 25 gm 11/25/20 16:14 11/26/20 00:42 Dextrose 50 % 25 Gm/50 Ml Vial IVPUSH 25 gm Q15M PRN Administration per Hypoglycemia Standing Ord. Protocol Glucose 15 gm 11/25/20 16:14 11/26/20 00:12 Glucose Gel 15 Gm Gel..Gram. PO 15 gm Q15M PRN Administration per Hypoglycemia Standing Ord. Protocol Sodium Chloride 1,000 mls @ 20 mls/hr 11/25/20 16:15 11/25/20 17:29 Ns IVCONT 20 mls/hr .Q24H JIL Administration Insulin Human Lispro 0 unit 11/25/20 16:30 11/26/20 08:40 Insulin Lispro 100 Unit/Ml 3 Ml Vial SUBCUT 11/26/20 16:15 Not Given QIDACHS J[facility] Protocol Pharmacy Consult 1 each 11/25/20 15:13 Consult Rx Perform Med Rec MISCELLANE ONCE PRN Consult order Time Spent With Patient Time: Total time spent is greater than 50% in coordination of care (as documented) at patient's floor/unit and/or counseling patient: Time with patient: less than 15 minutes Procedures Date of Service Date of Service: 11/26/20
--- NOTE | 2020-11-26 12:48 | PC.NURSE ---
Addendum entered by Jacques Riddle RN 11/26/20 15:47: Pt returned from OR at 1500. VSS A&Ox3, vpaced 82bpm BP 141/68. was called but no one answered. Original Note: Report given to OR nurse minoo [place] brought to OR at 1240. Family updated.
[2020-11-26 13:17] LABS: Lyme Abs Screen <0.90 index
--- NOTE | 2020-11-26 15:21 | PM.CCPN ---
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 presents with symptomatic bradycardia heart rate 30 with progressive renal insufficiency and clear-cut passive congestion of his liver severe exertional fatigue and even recumbent symptomatology today noted to be in complete heart block with an escape rate of about 30 but he underwent permanent dual-chamber pacemaker insertion without complication currently he has 100% normal sinus rhythm follow in tracking his sinus mechanism at a rate of 80 with 100% ventricular pacing and capture oxygen saturation 98% systolic pressure 140 respiratory rate 14 Post pacemaker he was able to get out of bed at eat and begin to exert himself and clearly was diuresing more significantly and was able to be sent to a telemetry floor Critical Care Time (minutes): 60 Physical Exam Vital Signs: Vital Signs: Last Vital Signs Temp 96.8 F 11/26/20 12:00 Pulse 38 L 11/26/20 12:00 Resp 19 11/26/20 12:00 BP 110/48 L 11/26/20 12:00 Pulse Ox 94 11/26/20 12:00 Body Mass Index 27.1 Neurologically intact and nonfocal Sinus rhythm at rate 100 with 100% tracking of the sinus mechanism by the pacemaker and 100% ventricular pacing Good bilateral carotid upstrokes no neck vein distension no gallops Chest without adventitious sounds Abdomen benign without organomegaly Objective Data Labs CBC & Chem 7: 11/27/20 05:47 11/27/20 05:47 Labs: Laboratory Results - last 24 hr 11/25/20 11/25/20 11/25/20 15:23 15:23 15:23 WBC 10.5 RBC 4.04 L Hgb 10.4 L Hct 33.6 L MCV 83.2 MCH 25.7 L MCHC 31.0 RDW 15.9 Plt Count 341 MPV 10.9 Immature Gran % (Auto) 0.5 H Neut % (Auto) 79.5 H Lymph % (Auto) 10.2 L [place] % (Auto) 7.6 Eos % (Auto) 1.6 Baso % (Auto) 0.6 Lymph # (Auto) 1.1 L [place] # (Auto) 0.8 Eos # (Auto) 0.2 Baso # (Auto) 0.1 Abs Immat Gran (auto) 0.05 H Absolute Neuts (auto) 8.3 Absolute Nucleated RBC 0.000 Nucleated RBC % (auto) 0.0 PT INR APTT Sodium 136 Potassium 5.2 H Chloride 108 Carbon Dioxide 18 L Anion Gap 15 BUN 57 H D Creatinine 1.93 H Estim Creat Clear Calc 31.0 Estimated GFR 34 POC Glucose Random Glucose 119 H Calcium 9.5 Phosphorus Magnesium 2.2 Total Bilirubin 0.7 Direct Bilirubin 0.3 AST 99 H ALT 131 H Alkaline Phosphatase 112 D Troponin I High Sens B-Natriuretic Peptide 1870 H Total Protein 7.0 Albumin 3.9 D TSH Free T4 Lyme Screen IgG & IgM COVID-19 (ROM) COVID-19 Clin Com 11/25/20 11/25/20 11/25/20 15:23 15:23 15:23 WBC RBC Hgb Hct MCV MCH MCHC RDW Plt Count MPV Immature Gran % (Auto) Neut % (Auto) Lymph % (Auto) Bea[place] % (Auto) Eos % (Auto) Baso % (Auto) Lymph # (Auto) [place] # (Auto) Eos # (Auto) Baso # (Auto) Abs Immat Gran (auto) Absolute Neuts (auto) Absolute Nucleated RBC Nucleated RBC % (auto) PT 13.4 H INR 1.2 H APTT 34.0 Sodium Potassium Chloride Carbon Dioxide Anion Gap BUN Creatinine Estim Creat Clear Calc Estimated GFR POC Glucose Random Glucose Calcium Phosphorus Magnesium Total Bilirubin Direct Bilirubin AST ALT Alkaline Phosphatase Troponin I High Sens 113.4 H* B-Natriuretic Peptide Total Protein Albumin TSH Free T4 Lyme Screen IgG & IgM COVID-19 (ROM) Negative COVID-[employer] Standard Com See Note 11/25/20 11/25/20 11/25/20 15:23 19:11 20:21 WBC RBC Hgb Hct MCV MCH MCHC RDW Plt Count MPV Immature Gran % (Auto) Neut % (Auto) Lymph % (Auto) Bea[place] % (Auto) Eos % (Auto) Baso % (Auto) Lymph # (Auto) [place] # (Auto) Eos # (Auto) Baso # (Auto) Abs Immat Gran (auto) Absolute Neuts (auto) Absolute Nucleated RBC Nucleated RBC % (auto) PT INR APTT Sodium Potassium Chloride Carbon Dioxide Anion Gap BUN Creatinine Estim Creat Clear Calc Estimated GFR POC Glucose 94 Random Glucose Calcium Phosphorus Magnesium Total Bilirubin Direct Bilirubin AST ALT Alkaline Phosphatase Troponin I High Sens B-Natriuretic Peptide Total Protein Albumin TSH 4.91 H Free T4 0.92 Lyme Screen IgG & IgM <0.90 COVID-19 (ROM) COVID-19 [employer] Com 11/25/20 11/25/20 11/26/20 21:16 21:56 00:02 WBC RBC Hgb Hct MCV MCH MCHC RDW Plt Count MPV Immature Gran % (Auto) Neut % (Auto) Lymph % (Auto) Bea[place]gard % (Auto) Eos % (Auto) Baso % (Auto) Lymph # (Auto) [place] # (Auto) Eos # (Auto) Baso # (Auto) Abs Immat Gran (auto) Absolute Neuts (auto) Absolute Nucleated RBC Nucleated RBC % (auto) PT INR APTT Sodium Potassium Chloride Carbon Dioxide Anion Gap BUN Creatinine Estim Creat Clear Calc Estimated GFR POC Glucose 93 71 Random Glucose Calcium Phosphorus Magnesium Total Bilirubin Direct Bilirubin AST ALT Alkaline Phosphatase Troponin I High Sens 172.6 H* D B-Natriuretic Peptide 2059 H Total Protein Albumin TSH Free T4 Lyme Screen IgG & IgM COVID-19 (ROM) COVID-19 [employer] 11/26/20 11/26/20 11/26/20 00:32 01:18 05:19 WBC 9.8 RBC 3.49 L Hgb 8.9 L Hct 28.3 L MCV 81.1 MCH 25.5 L MCHC 31.4 RDW 15.6 Plt Count 253 D MPV 11.0 Immature Gran % (Auto) 0.4 Neut % (Auto) 74.0 H Lymph % (Auto) 12.8 L Bea[place] % (Auto) 9.6 Eos % (Auto) 2.8 Baso % (Auto) 0.4 Lymph # (Auto) 1.3 [place] # (Auto) 0.9 Eos # (Auto) 0.3 Baso # (Auto) 0.0 Abs Immat Gran (auto) 0.04 H Absolute Neuts (auto) 7.3 Absolute Nucleated RBC 0.000 Nucleated RBC % (auto) 0.0 PT INR APTT Sodium Potassium Chloride Carbon Dioxide Anion Gap BUN Creatinine Estim Creat Clear Calc Estimated GFR POC Glucose 75 163 H Random Glucose Calcium Phosphorus Magnesium Total Bilirubin Direct Bilirubin AST ALT Alkaline Phosphatase Troponin I High Sens B-Natriuretic Peptide Total Protein Albumin TSH Free T4 Lyme Screen IgG & IgM COVID-19 (ROM) COVID-19 [employer] 11/26/20 11/26/20 11/26/20 05:19 05:19 05:19 WBC RBC Hgb Hct MCV MCH MCHC RDW Plt Count MPV Immature Gran % (Auto) Neut % (Auto) Lymph % (Auto) Bea[place] % (Auto) Eos % (Auto) Baso % (Auto) Lymph # (Auto) [place] # (Auto) Eos # (Auto) Baso # (Auto) Abs Immat Gran (auto) Absolute Neuts (auto) Absolute Nucleated RBC Nucleated RBC % (auto) PT 13.1 H INR 1.2 H APTT 31.0 Sodium 139 Potassium 3.9 D Chloride 110 H Carbon Dioxide 18 L Anion Gap 15 BUN 53 H Creatinine 1.87 H Estim Creat Clear Calc 32.0 Estimated GFR 35 POC Glucose Random Glucose 96 Calcium 9.1 Phosphorus 4.1 Magnesium 2.0 Total Bilirubin 0.4 Direct Bilirubin AST 78 H ALT 98 H Alkaline Phosphatase 99 Troponin I High Sens 216.8 H* B-Natriuretic Peptide 2102 H Total Protein 5.7 L Albumin 3.2 L TSH Free T4 Lyme Screen IgG & IgM COVID-19 (ROM) COVID-19 [employer] 11/26/20 11/26/20 11/26/20 06:21 07:28 11:24 WBC RBC Hgb Hct MCV MCH MCHC RDW Plt Count MPV Immature Gran % (Auto) Neut % (Auto) Lymph % (Auto) Bea[place]gard % (Auto) Eos % (Auto) Baso % (Auto) Lymph # (Auto) [place] # (Auto) Eos # (Auto) Baso # (Auto) Abs Immat Gran (auto) Absolute Neuts (auto) Absolute Nucleated RBC Nucleated RBC % (auto) PT INR APTT Sodium Potassium Chloride Carbon Dioxide Anion Gap BUN Creatinine Estim Creat Clear Calc Estimated GFR POC Glucose 99 87 88 Random Glucose Calcium Phosphorus Magnesium Total Bilirubin Direct Bilirubin AST ALT Alkaline Phosphatase Troponin I High Sens B-Natriuretic Peptide Total Protein Albumin TSH Free T4 Lyme Screen IgG & IgM COVID-19 (ROM) COVID-19 [employer] Quality Stroke Does the patient have a stroke diagnosis?: No VTE Prior VTE?: No VTE Risk Level:: Medical - low VTE Device Contraindication: N/A - Device Ordered VTE Drug Contraindication: Treatment Not Indicated Progress Note: A&P Assessment and plan (1) Congestive heart failure with LV diastolic dysfunction, NYHA class 3: Status: Acute (2) Symptomatic bradycardia: Status: Acute (3) Encounter for interrogation of cardiac pacemaker: Status: Acute (4) Complete heart block: Status: Acute (5) Second degree heart block: Status: Acute (6) Decubitus ulcer, heel: Status: Acute (7) DEON (acute kidney injury): Status: Acute (8) Elevated troponin: Status: Acute Assessment and Plan: Chest x-ray postop showed perfectly maintained wire position in right atrial appendage and right ventricular apex without pneumothorax and no complication and the patient has excellent function of the pacer and he is now a candidate to go to a telemetry floor and ambulate
--- NOTE | 2020-11-26 15:23 | P.OP_ITS ---
Operative Note Operative Note Date of Service: 11/26/20 Narrative: After sterile preparation and draping utilizing fluoroscopic guidance in the OR insertion of a dual-chamber [employer] [facility] pacemaker was performed without complication the indication for which is symptomatic bradycardia due to complete heart block and bifascicular block First performed subclavian venography without complication highlighting subclavian venous system then making careful incision and dissection down to the prepectoral fascia I gained easy entry times to separately to the subclavian venous system without complication passing retrograde with Seldinger technique 2 J-tip guidewires to the right atrium and with 6 Nepali introducers I 1st passed an active fixation right ventricular lead to the right ventricular apex with screw deployed a excellent injury current excellent sensing with QRS at about 5 mV of and it was well tethered at had a lead impedance of 550 Ohms capture threshold of 0.75 volts and no phrenic irritation at 10 volts so that lead was sewn and tethered to the pectoral muscle in the floor of the pocket Next passed a active fixation right atrial lead clearly a an enlarged and disease right atrium several spots were tried with diminished results of on both sensing and capture but found a good spot with a sensing of 2 mV impedance 460 Ohms and that climbed to a sensing of 4.3 mV and capture threshold of 0.5 volts so there the lead was sewn and tethered to the pectoral muscle on the floor of the pocket both leads then attached to the generator well tethered no change in impedance and the pocket was finished by dissecting along the plane of the prepectoral fascia without any bleeding and lead and generator placed in the pocket and closed sterilely 3 layers of dissolving suture and sterilely dressed and patient removed from the table awake and alert and nonfocal neurologically intact chest x-ray is pending
[2020-11-26 17:09] LABS: Glucose, Whole Blood 86 mg/dL (60-115)
[2020-11-26 21:42] LABS: Glucose, Whole Blood 128 mg/dL (60-115)
[2020-11-27] VITALS: BP 155/72; PULSE 92; RESP 20; TEMP 37; O2SAT 98
[2020-11-27 01:00] LABS: Glucose, Whole Blood 86 mg/dL (60-115)
[2020-11-27 04:00] VITALS: BP 158/72; PULSE 103; RESP 20; TEMP 37; O2SAT 95
[2020-11-27 06:52] LABS: Hematocrit 30.5 % (42-52); Hemoglobin 9.6 g/dl (14.0-18.0); Mean Corpuscular HGB Conc 31.5 g/dl (31.0-36.0); Mean Corpuscular Hemoglobin 25.4 pg (27.0-33.0); Mean Corpuscular Volume 80.7 fL (80-98); Mean Platelet Volume 11.1 fL (9.4-12.4); Platelet Count 189 X10*3/uL (160-400); Red Blood Count 3.78 X10*6/uL (4.60-5.80); Red Cell Distribution Width 15.5 % (11.0-16.0); White Blood Count 7.2 X10*3/uL (4.8-10.8)
[2020-11-27 07:04] LABS: Alanine Aminotransferase 74 U/L (0-40); Albumin Level 3.3 g/dL (3.5-5.0); Alkaline Phosphatase 104 U/L (39-117); Anion Gap 13 (12-20); Aspartate Amino Transferase 53 U/L (5-37); B Type Natriuretic Peptide 741 pg/mL (<100); Bilirubin Total 0.7 mg/dL (0.0-1.0); Blood Urea Nitrogen 34 mg/dL (9-16); Carbon Dioxide 20 mmol/L (22-29); Chloride 112 mmol/L (96-108); Creatinine Clr Calc Pharmacy 47.9; Estimated Glomerular Filt Rate 56; Glucose Random 82 mg/dL (60-115); Magnesium 1.7 mg/dL (1.6-2.6); Partial Thromboplastin Time 33.8 SEC (24.1-38.0); Phosphorus 3.2 mg/dL (2.7-4.5); Potassium 3.8 mmol/L (3.3-5.1); Sodium 141 mmol/L (135-145); Total Protein 6.1 g/dL (6.5-8.0)
[2020-11-27 07:35] VITALS: BP 120/63; PULSE 72; RESP 18; TEMP 36.1; O2SAT 97
[2020-11-27 07:48] LABS: Glucose, Whole Blood 99 mg/dL (60-115)
[2020-11-27 08:00] VITALS: BMI 23.4
--- NOTE | 2020-11-27 10:22 | PM.DS ---
DS: Providers Provider Date of Service: 11/27/20 Date of admission: 11/25/20 16:09 Primary care physician: Jaycee Juarez MD Consults: 11/25/20 15:57 Consult to Cardiology Stat Consulting Provider: Kannan Maddox Reason for consultation: heart block Has provider been notified: Yes DS: Diagnosis Discharge Diagnosis (1) Complete heart block: Status: Acute (2) Second degree heart block: Status: Acute DS: Summary Hospital Course Hospital Course: Admission note HPI A 80-year-old male with a past medical history of left chronic heel ulcer, DM2, HTN, HLD, iron deficiency anemia, urinary retention and back pain came to the ED this morning c/o 1 week fatigue and shortness of breath which is worsened over the last day.? Was found to be in a 2-1 heart block, labs chest x-ray IV glucagon and calcium given, labs remarkable for BUN/Cr 57/1.93, BNP 1870, trop 113 Admitted to ICU for monitoring.\ Patient is scheduled to have surgery with Dr. Vanegas on Saturday for debridement of his left heel ulcer Hospital course The patient was admitted to intensive care for monitoring received glucagon IV with minimal effect. Evaluated by workers' compensation hearings officer/dedicated owner operator Dr. mahin dejesus who placed a dual-chamber pacemaker with good response as the patient worsening kidney function improved back to baseline and his energy level significantly improved. He was able to ambulate with no reported shortness of breath or weakness. Interrogation was done with acceptable threshold. Chest x-ray repeated showing stable pacemaker position. He is scheduled to do a debridement surgery on Saturday which will be held for now and to be done at least after a week. To follow-up with Dr. Maddox as outpatient in 1 week. Time Spent with Patient Time attestation: Total time spent providing and/or coordinating discharge services: Discharge coordination time: Greater than 30 minutes Quality: Stroke Does the patient have a stroke diagnosis?: No Physical Exam Vital Signs: Vital Signs: Last Vital Signs Temp 97.0 F 11/27/20 07:35 Pulse 72 11/27/20 07:35 Resp 18 11/27/20 07:35 BP 120/63 11/27/20 07:35 Pulse Ox 97 11/27/20 07:35 Body Mass Index 23.4 Const: Other: Constitutional : Alert, oriented, not in distress Neck : Normal inspection, Supple Cardiovascular : RRR, S1 S2, no lower extremity edema, site of surgery clean with no drainage Respiratory : Good bilateral air entry, no crackles, wheezes or rhonchi Gastrointestinal: soft, lax, Normal bowel sounds, Non tender Skin : Warm, Dry Neurological : Alert & oriented x3, No focal deficit DS: Data Data Completed and Pending Completed studies during hospitalization [Text1]: Procedures Excision of Left Foot Subcutaneous Tissue and Fascia, Open Approach (06/11/20) Labs on day of discharge: Laboratory Results - last 24 hr 11/25/20 11/26/20 11/26/20 19:11 11:24 16:22 WBC RBC Hgb Hct MCV MCH MCHC RDW Plt Count MPV Absolute Nucleated RBC Nucleated RBC % (auto) APTT Sodium Potassium Chloride Carbon Dioxide Anion Gap BUN Creatinine Estim Creat Clear Calc Estimated GFR POC Glucose 88 86 Random Glucose Calcium Phosphorus Magnesium Total Bilirubin AST ALT Alkaline Phosphatase B-Natriuretic Peptide Total Protein Albumin Lyme Screen IgG & IgM <0.90 11/26/20 11/27/20 11/27/20 21:39 00:56 05:47 WBC 7.2 RBC 3.78 L Hgb 9.6 L Hct 30.5 L MCV 80.7 MCH 25.4 L MCHC 31.5 RDW 15.5 Plt Count 189 D MPV 11.1 Absolute Nucleated RBC 0.000 Nucleated RBC % (auto) 0.0 APTT Sodium Potassium Chloride Carbon Dioxide Anion Gap BUN Creatinine Estim Creat Clear Calc Estimated GFR POC Glucose 128 H 86 Random Glucose Calcium Phosphorus Magnesium Total Bilirubin AST ALT Alkaline Phosphatase B-Natriuretic Peptide Total Protein Albumin Lyme Screen IgG & IgM 11/27/20 11/27/20 11/27/20 05:47 05:47 05:47 WBC RBC Hgb Hct MCV MCH MCHC RDW Plt Count MPV Absolute Nucleated RBC Nucleated RBC % (auto) APTT 33.8 Sodium 141 Potassium 3.8 Chloride 112 H Carbon Dioxide 20 L Anion Gap 13 BUN 34 H Creatinine 1.25 Estim Creat Clear Calc 47.9 Estimated GFR 56 POC Glucose Random Glucose 82 Calcium 9.0 Phosphorus 3.2 Magnesium 1.7 Total Bilirubin 0.7 AST 53 H ALT 74 H Alkaline Phosphatase 104 B-Natriuretic Peptide 741 H Total Protein 6.1 L Albumin 3.3 L Lyme Screen IgG & IgM 11/27/20 07:36 WBC RBC Hgb Hct MCV MCH MCHC RDW Plt Count MPV Absolute Nucleated RBC Nucleated RBC % (auto) APTT Sodium Potassium Chloride Carbon Dioxide Anion Gap BUN Creatinine Estim Creat Clear Calc Estimated GFR POC Glucose 99 Random Glucose Calcium Phosphorus Magnesium Total Bilirubin AST ALT Alkaline Phosphatase B-Natriuretic Peptide Total Protein Albumin Lyme Screen IgG & IgM Discharge Plan Discharge Patient Disposition: Home, Self-Care Discharge Diagnosis: Heart block Kidney injury Referrals: Jaycee Juarez MD [Primary Care Provider] - 1 Week Discharge Medications: Continued Trulicity 1.5 mg/0.5 mL pen injector 0.5 ml subcut TH RF: 0 glipizide 2.5 mg tablet extended release 24hr 1 tab PO DAILY RF: 0 diphenhydramine-acetaminophen [Tylenol PM Extra Strength] 25-500 mg Tablet 1 tab PO BEDTIME PRN (Reason: Pain) RF: 0 metoprolol tartrate 25 mg tablet 25 mg PO BID RF: 0 simvastatin 40 mg tablet 40 mg PO QPM RF: 0 (DME) OneTouch Verio test strips Strip See Rx Instructions ea Not Applicable TID Qty: 10 RF: 0 pantoprazole 20 mg tablet,delayed release (DR/EC) 20 mg PO DAILY RF: 0 Discharge Orders: Discharge Order (Routine); Ordered 11/27/20 Ordered By: Murali Rojas Diet: advance to usual diet Activity on Discharge: As tolerated Stand Alone Forms: Patient Portal Discharge page Care Plan Goals: Read below Health Concerns: Read below Plan of Treatment: Admitted for lethargy, found to have slow heart rate. Treated by placing a heart pacemaker with good response. You were noticed to have kidney injury which has improved back to baseline Assessment: Continue home medications as prescribed To follow up with Dr Maddox office in 2 weeks Avoid wetting site of surgery
--- NOTE | 2020-11-27 11:14 | P.PNCA_ITS ---
Subjective Subjective Date of Service: 11/27/20 Interval history: Feels better. No cardiac symptoms. Review of Systems Review of Systems Yes all other systems are reviewed and are negative Cardiovascular: Reports as per HPI, Reports no additional cardiovascular complaints, Denies acrocyanosis, Denies cool extremities, Denies painful fingertips, Denies chest pain, Denies chest pain at rest, Denies diaphoresis, Denies syncope, Denies irregular heart rhythm, Denies claudication, Denies leg edema, Reports lightheadedness, Denies palpitations and Reports dyspnea Respiratory: Reports dyspnea Denies syncope Endocrine: Denies palpitations Physical Exam Vital Signs: Last Vital Signs Temp 97.0 F 11/27/20 07:35 Pulse 72 11/27/20 07:35 Resp 18 11/27/20 07:35 BP 120/63 11/27/20 07:35 Pulse Ox 97 11/27/20 07:35 Body Mass Index 23.4 Const General: cooperative and no acute distress [facility] Other: Unremarkable Neck Neck: Yes normal visual inspection Chest Chest palpation & inspection: normal inspection of the chest Resp Auscultation: clear to auscultation bilaterally, no crackles and no wheezes Cardio Jugular venous distension: no JVD Palpation: normal PMI Heart sounds: S1 normal heart sound present, S2 normal heart sound present, no gallops, no murmurs and no rubs GI Palpation (GI): Soft to palpation Back/Spine/Pelvis Other: unremarkable Skin General skin exam: no rashes or lesions noted Neuro Cranial nerves: Yes Other cranial nerve findings present Extrem General: Yes no clubbing, cyanosis or edema Psych Mental Status: other Results Labs and Meds Result diagrams: 11/27/20 05:47 11/27/20 05:47 Lab results: Laboratory Results - last 24 hr 11/25/20 11/26/20 11/26/20 19:11 11:24 16:22 WBC RBC Hgb Hct MCV MCH MCHC RDW Plt Count MPV Absolute Nucleated RBC Nucleated RBC % (auto) APTT Sodium Potassium Chloride Carbon Dioxide Anion Gap BUN Creatinine Estim Creat Clear Calc Estimated GFR POC Glucose 88 86 Random Glucose Calcium Phosphorus Magnesium Total Bilirubin AST ALT Alkaline Phosphatase B-Natriuretic Peptide Total Protein Albumin Lyme Screen IgG & IgM <0.90 11/26/20 11/27/20 11/27/20 21:39 00:56 05:47 WBC 7.2 RBC 3.78 L Hgb 9.6 L Hct 30.5 L MCV 80.7 MCH 25.4 L MCHC 31.5 RDW 15.5 Plt Count 189 D MPV 11.1 Absolute Nucleated RBC 0.000 Nucleated RBC % (auto) 0.0 APTT Sodium Potassium Chloride Carbon Dioxide Anion Gap BUN Creatinine Estim Creat Clear Calc Estimated GFR POC Glucose 128 H 86 Random Glucose Calcium Phosphorus Magnesium Total Bilirubin AST ALT Alkaline Phosphatase B-Natriuretic Peptide Total Protein Albumin Lyme Screen IgG & IgM 11/27/20 11/27/20 11/27/20 05:47 05:47 05:47 WBC RBC Hgb Hct MCV MCH MCHC RDW Plt Count MPV Absolute Nucleated RBC Nucleated RBC % (auto) APTT 33.8 Sodium 141 Potassium 3.8 Chloride 112 H Carbon Dioxide 20 L Anion Gap 13 BUN 34 H Creatinine 1.25 Estim Creat Clear Calc 47.9 Estimated GFR 56 POC Glucose Random Glucose 82 Calcium 9.0 Phosphorus 3.2 Magnesium 1.7 Total Bilirubin 0.7 AST 53 H ALT 74 H Alkaline Phosphatase 104 B-Natriuretic Peptide 741 H Total Protein 6.1 L Albumin 3.3 L Lyme Screen IgG & IgM 11/27/20 07:36 WBC RBC Hgb Hct MCV MCH MCHC RDW Plt Count MPV Absolute Nucleated RBC Nucleated RBC % (auto) APTT Sodium Potassium Chloride Carbon Dioxide Anion Gap BUN Creatinine Estim Creat Clear Calc Estimated GFR POC Glucose 99 Random Glucose Calcium Phosphorus Magnesium Total Bilirubin AST ALT Alkaline Phosphatase B-Natriuretic Peptide Total Protein Albumin Lyme Screen IgG & IgM Imaging Radiologist's impression: Impressions Guidance Fluoroscopy 11/26/20 08:45 IMPRESSION: Imaging guidance for procedure. Please refer to operative report for detail regarding procedure and findings. Chest X-Ray 11/26/20 15:34 IMPRESSION: New nodule pacer electrode in the right atrium and right ventricle. Patchy density right middle lobe question small atelectasis or infiltrate. Chest X-Ray 11/27/20 08:14 IMPRESSION: * No evidence of complications from the cardiac pacemaker placement. No pneumothorax. No evidence of active congestive heart failure. * Possible trace right pleural effusion. Progress Note: A&P Assessment and plan (1) Complete heart block: Status: Acute (2) Second degree heart block: Status: Acute (3) Encounter for interrogation of cardiac pacemaker: Status: Acute Assessment and Plan: Status post permanent pacemaker implantation for complete heart block. He is feeling somewhat better. Chest x-ray is unremarkable. Pacemaker interrogation with normal function. Discharge planning. We will arrange outpatient follow- up. Fall Risk Details Current Medications: Current Medications Generic Name Dose Route Start Last Admin Trade Name Freq PRN Reason Stop Dose Admin Dextrose 25 gm 11/25/20 16:14 11/26/20 00:42 Dextrose 50 % 25 Gm/50 Ml Vial IVPUSH 25 gm Q15M PRN Administration per Hypoglycemia Standing Ord. Protocol Glucose 15 gm 11/25/20 16:14 11/26/20 00:12 Glucose Gel 15 Gm Gel..Gram. PO 15 gm Q15M PRN Administration per Hypoglycemia Standing Ord. Protocol Pharmacy Consult 1 each 11/25/20 15:13 Consult Rx Perform Med Rec MISCELLANE ONCE PRN Consult order Time Spent With Patient Time: Total time spent is greater than 50% in coordination of care (as documented) at patient's floor/unit and/or counseling patient: Time with patient: less than 15 minutes Progress Note: Quality Stroke Does the patient have a stroke diagnosis?: No Procedures Date of Service Date of Service: 11/27/20
[2020-11-27 11:18] VITALS: BP 118/77; PULSE 96; RESP 18; TEMP 36.7; O2SAT 97
[2020-11-27 11:23] LABS: Glucose, Whole Blood 139 mg/dL (60-115)
--- NOTE | 2020-11-27 11:24 | P.CONCC_ITS ---
History of Present Illness Data of Consult Service Date: 11/25/20 Requesting physician: Love Mullins Primary Care Provider: Jaycee Juarez MD HPI Reason for consult: Weakness and near-syncope 80-year-old male and type 2 diabetic who has noticed progressive severe exertional fatigability forcing him to stop after very short distance unable to sustain his exercise effort and having difficulty sleeping and clearly sounds like he has recumbent dyspnea currently also having been on again off again antibiotics because of a nonhealing foot ulcer which is due to be mechanically debrided in the OR in another 3 days Clearly has diffuse conduction disease because he has 2-1 AV block and I believe it is probably low AV king or even his bundle because he has got diffuse conduction disease manifested by right bundle and left axis on the conducted beat see has very prolonged NC interval of 400 milliseconds and then he progressed to complete heart block with a similar QRS escape mechanism at a rate of 30 He has got a flat modestly elevated troponin markedly elevated BNP and evidence of stage III renal failure as well as elevated liver function tests and my bedside echo in the emergency room demonstrated preserved anatomy with normal left ventricular and right ventricular systolic function no primary valve or pericardial disease but clearly has evidence of biventricular failure low-flow passive congestion of the liver all on the basis of symptomatic bradycardia Review of Systems Review of Systems: Most importantly no constitutional complaints in other words no fever no chills Yes all other systems are reviewed and are negative PMFSH Past Medical History Medical History Back pain Diabetes mellitus History of COVID-19 Hyperlipidemia Hypertension Iron deficiency anemia Ulcer of left heel Urinary retention Family History Family History Brother Testicular cancer Surgical History Surgical History History of back surgery History of esophagogastroduodenoscopy History of left hip replacement Hx of cataract extraction Hx of colonoscopy Social History Social History Household Members: Spouse Housing: House Do you presently have visiting nurse or other home services: Yes ([facility] 2x wk for wound care to left heel) Alcohol intake: never Patient Tobacco Use Status: Tobacco use Unknown Use of substances other than those prescribed or required for medical reasons: No Currently Displaying Signs/Symptoms of Drug Intoxication Withdrawal: No Have you been hit, kicked, punched, or otherwise hurt by someone within the past year? If so, by whom?: No Do you feel safe in your current relationship?: Yes Is there a partner from a previous relationship who is making you feel unsafe now?: No Are you made to feel afraid or neglected: No Advance Directives: No Advance Directives Information Provided: No Do you have thoughts of harming others: None Do you have a plan to hurt others: No Plan Recently lost weight without trying: Yes How much weight loss: Unsure Eating poorly because of decreased appetite: Yes Nutrition screen score: 5 Poor oral hygiene: No service: No Current occupational status: retired [employer] Allergies Allergy/AdvReac Type Severity Reaction Status Date / Time lisinopril [LISINOPRIL] Allergy Severe ANGIOEDEMA Verified 11/25/20 16:27 Active Medications: Current Medications Generic Name Dose Route Start Last Admin Trade Name Freq PRN Reason Stop Dose Admin Dextrose 25 gm 11/25/20 16:14 11/26/20 00:42 Dextrose 50 % 25 Gm/50 Ml Vial IVPUSH 25 gm Q15M PRN Administration per Hypoglycemia Standing Ord. Protocol Glucose 15 gm 11/25/20 16:14 11/26/20 00:12 Glucose Gel 15 Gm Gel..Gram. PO 15 gm Q15M PRN Administration per Hypoglycemia Standing Ord. Protocol Pharmacy Consult 1 each 11/25/20 15:13 Consult Rx Perform Med Rec MISCELLANE ONCE PRN Consult order Home Medications Medication Instructions Recorded Confirmed Last Taken Type metoprolol tartrate 25 mg tablet 25 mg PO BID 03/17/20 11/25/20 11/25/20 History simvastatin 40 mg tablet 40 mg PO QPM 03/17/20 11/25/20 11/24/20 History dulaglutide 1.5 mg/0.5 mL 0.5 ml SUBCUT TH 06/11/20 11/25/20 11/17/20 History subcutaneous pen injector (Trulicity) blood sugar diagnostic (OneTouch #10 ea 11/11/20 Unknown History Verio test strips) pantoprazole 20 mg tablet,delayed 20 mg PO DAILY 11/11/20 11/25/20 11/24/20 History release diphenhydramine 25 1 tab PO BEDTIME PRN 11/25/20 11/25/20 Unknown History mg-acetaminophen 500 mg tablet (Tylenol PM Extra Strength) glipizide 2.5 mg tablet, extended 1 tab PO DAILY 11/25/20 11/25/20 11/25/20 History release 24 hr Physical Exam Vital Signs: Vital Signs: Last Vital Signs Temp 98.0 F 11/27/20 11:18 Pulse 96 11/27/20 11:18 Resp 18 11/27/20 11:18 BP 118/77 11/27/20 11:18 Pulse Ox 97 11/27/20 11:18 Body Mass Index 23.4 He had adequate bilateral carotid upstrokes but no neck vein distension Neurologically intact and nonfocal Chest without adventitious sounds and without accessory muscle use Abdomen benign with no palpable organomegaly Skin shows no evidence of cellulitis no decubiti I Results Labs CBC & Chem 7: 11/27/20 05:47 11/27/20 05:47 Labs: Short CBC 11/27/20 Range/Units 05:47 WBC 7.2 (4.8-10.8) X10*3/uL Hgb 9.6 L (14.0-18.0) g/dl Hct 30.5 L (42-52) % Plt Count 189 D (160-400) X10*3/uL BMP 11/27/20 05:47 Sodium 141 Potassium 3.8 Chloride 112 H Carbon Dioxide 20 L BUN 34 H Creatinine 1.25 Calcium 9.0 Liver Function 11/27/20 Range/Units 05:47 Total Bilirubin 0.7 (0.0-1.0) mg/dL AST 53 H (5-37) U/L ALT 74 H (0-40) U/L Alkaline Phosphatase 104 (39-117) U/L Albumin 3.3 L (3.5-5.0) g/dL Assessment and Plan (1) Complete heart block: Status: Acute (2) Second degree heart block: Status: Acute (3) Decubitus ulcer, heel: Status: Acute (4) DEON (acute kidney injury): Status: Acute (5) Elevated troponin: Status: Acute (6) Symptomatic bradycardia: Status: Acute (7) Congestive heart failure with LV diastolic dysfunction, NYHA class 3: Status: Acute On equivocal plan for this high risk individual and is for permanent dual- chamber pacemaker implantation but in preparation will admit and IV diurese to allow him comfort and and to repair his oxygen saturations while supine
== END 2020-11-27 13:15 | disposition home or self-care (01) | DRG 243 ==
LOC: HO.ED 16:03 → HO.EDOVER 16:21 → HO.ICU 18:13 → HO.IMC 11-27 00:15
PROVIDERS: Physician Assistant; Admitting Provider Internal Medicine Cardiovascular Disease; Emergency Provider Emergency Medicine; PCP Internal Medicine; Visit Provider Student in an Organized Health Care Education/Training Program
PROC: 0JH606Z Insertion of Pacemaker, Dual Chamber into Chest Subcutaneous Tissue and Fascia, Open Approach (ICD-10-PCS; principal; 2020-11-26 11:00)
DX: I44.1 Atrioventricular block, second degree (principal); N17.9 Acute kidney failure, unspecified; Z86.16 Personal history of COVID-19; E11.628 Type 2 diabetes mellitus with other skin complications; L89.629 Pressure ulcer of left heel, unspecified stage; I44.2 Atrioventricular block, complete; Z20.822 Contact with and (suspected) exposure to COVID-19; Z79.899 Other long term (current) drug therapy
CPT/HCPCS: 36415; 71045; 80048; 80053; 80076; 82947; 83735; 83880; 84100; 84439; 84443; 84484; 85025; 85027; 85610; 85730; 86617; 86618; 87635; 93005; 96365; 96366; 96375; 99285; 99291; C1785; C1892; C1898; J0461; J0610; J0690; J1610; J1940; Q9967

== ENCOUNTER → 2020-12-19 14:27 | Outpatient (BNVA) | payer MEDICARE, SELFPAY | PROVIDERS: PCP Internal Medicine; Visit Provider Internal Medicine | DX: Z45.018 Encounter for adjustment and management of other part of cardiac pacemaker (principal); I45.9 Conduction disorder, unspecified; E11.8 Type 2 diabetes mellitus with unspecified complications | CPT/HCPCS: 99212 ==

== ENCOUNTER → 2021-03-20 13:16 | Outpatient (BNVA) | payer MEDICARE, SELFPAY | PROVIDERS: PCP Internal Medicine; Referring Provider Internal Medicine; Visit Provider Internal Medicine | DX: Z45.018 Encounter for adjustment and management of other part of cardiac pacemaker (principal); I45.9 Conduction disorder, unspecified; E11.8 Type 2 diabetes mellitus with unspecified complications | CPT/HCPCS: 99212 ==

== ENCOUNTER → 2021-05-03 10:18 | Outpatient (REF) | payer MEDICARE, SELFPAY ==
--- NOTE | 2021-05-03 10:21 | CA_ITS ---
Transthoracic Echocardiogram Patient (Last, First, Middle): Jacques Guadarrama A Gender: Male Date of : 1940 Age: 80 Procedure Date: 05/03/2021 Procedure Type: Transthoracic Echocardiogram Location: OP Height: 175.26 cm Weight: 74.84 kg BSA: 1.90 m2 Heart Rate: bpm BP: 115 / 75 mmHg Hotbed Lever Operator: YR/TO Referring MD: Kannan Maddox MD Life Claims Examiner: Presley Corado MD Symptoms: I45.9 - Conduction disorder, unspecified Study Quality: Fair ECG Rhythm: Ventriculary paced rhythm Conclusions: - 1. Normal LV systolic function with mild LVH with impaired relaxation filling pattern 2. Mild biatrial enlargement 3. Mild mitral regurgitation with severe mitral annular calcification 4. Normal RV systolic pressure 5. No gross pericardial effusion Findings Left Ventricle Normal left ventricular size and systolic function. There is mildly increased left ventricular wall thickness. The visually estimated ejection fraction is between 60-65%. There is paradoxical septal motion consistent with a right ventricular pacemaker. Spectral Doppler is indicative of an impaired relaxation filling pattern. E/E prime ratio is between 8 and 15 consistent with indeterminate filling pressures. Right Ventricle Normal right ventricular cavity size and systolic function. There is a pacemaker wire seen in the right ventricle. Atria The left atrium is mildly dilated. Interatrial shunt cannot be excluded. The right atrium is likely dilated. A pacemaker wire is identified in the right atrium. Aortic Valve There is mild calcification of the aortic valve. There is no aortic valve stenosis. There is no aortic valve regurgitation. Mitral Valve There is mild anterior and severe posterior mitral leaflet thickening. There is severe mitral annular calcification. There is mild mitral valve regurgitation. There is no mitral valve stenosis. Pulmonic Valve The pulmonic valve was not well visualized. Tricuspid Valve Likely normal tricuspid valve structure and function. There is mild tricuspid valve regurgitation. The right ventricular systolic pressure is normal. The right ventricular systolic pressure is 30 mmHg. Normal right atrial pressure. There is no evidence of pulmonary hypertension. Great Vessels All visible segments of the aorta are normal in size. The pulmonary artery was not well visualized. Venous The inferior vena cava is normal in size and collapses greater than 50% with inspiration. Pericardium/Pleural There is no evidence of pericardial effusion. Prior Study Comparison No prior study available for comparison. Measurements 2D Linear Measurements IVSd: 1.34 0.6-0.9/0.6-1.0 cm LVIDd: 4.46 3.9-5.3/4.2-5.9 cm LVIDd Index: 2.35 2.4-3.2/2.2-3.1 cm/m2 LVIDs: 3.15 2.0-3.6 cm LVPWd: 1.28 0.7-1.1 cm Ao Root: 3.60 2.1-3.5 cm LA Diam: 3.60 2.7-3.8/3.0-4.0 cm LAIDs Index: 1.89 1.5-2.3 cm/m2 LV Mass: 276.83 67-162/88-224 g LV Mass Index: 145.70 43-95/49-115 g/m2 LVOT Diam: 2.20 3.0+(-)1.3 cm 2D Systolic Function EF 4C: 54.90 >55% EF 2C: 64.00 >55% EF BiP: 60.20 >55% Mitral Valve MV Pk E: 0.66 MV PK A: 0.97 MV Decel Time: 254.00 E/A: 0.70 E'Lateral: 6.20 E'Medial: 4.90 E/E' Med: 13.60 E/E' Lat: 10.70 PHT: 74.00 MVA PHT: 2.97 Decel [place]: 2.62 Aortic Valve AoV Pk Michael: 1.03 AoV Mn Michael: 0.70 AoV VTI: 0.22 AoV Pk Grad: 4.00 Aov Mn Grad: 2.00 TRISTAN Cont.VTI: 4.08 LVOT LVOT Pk Michael: 0.98 LVOT Mn Michael: 0.68 LVOT VTI: 0.23 LVOT Pk Grad: 4.00 LVOT Mn Grad: 2.00 LVOT Diam: 2.20 LVOT Area: 3.80 Diastolic Function MV Pk E: 0.66 MV Pk A: 0.97 E/A: 0.70 E'Medial: 4.90 E/E' Med: 13.60 E' Laterial: 6.20 E/E' Lat: 10.70 Right Ventricle TAPSE (mm): 18.00 TVS' Michael: 7.18 Tricuspid Valve TR Pk Michael: 2.36 TR Pk Grad: 22.00 RA Press: 8.00 RVSP: 30.00 Great Vessels Aorta Ao Root-2D: 3.60 2.0-3.7 cm Ao Asc: 3.60 2.1-3.4 cm Updated in Other Vendor System with Status of Final Presley Corado MD electronically signed on 05/04/2021 11:28:39 AM with status of Final
== END ==
LOC: HO.CARD 10:18
PROVIDERS: PCP Physician Assistant Medical; Visit Provider Internal Medicine
DX: I45.9 Conduction disorder, unspecified (principal)
CPT/HCPCS: 93306

== ENCOUNTER 2022-03-08 10:31 | Emergency (ER) | payer MEDICARE, SELFPAY ==
[2022-03-08 11:05] VITALS: BP 116/68; PULSE 74; RESP 20; TEMP 36.6; O2SAT 98; BMI 28.0
[2022-03-08 11:30] LABS: MANUAL DIFF FLAG NO
[2022-03-08 11:39] LABS: Basophils Absolute Auto 0.1 X10*3/uL (0.0-0.2); Basophils Percent Auto 0.6 % (0-2); Eosinophils Absolute Auto 0.2 X10*3/uL (0.0-0.4); Glucose Urine UA >=1000 mg/dL (Negative); Hematocrit 41.3 % (42.0-52.0); Hemoglobin 13.6 g/dl (14.0-18.0); Imm Gran Abs Auto 0.04 X10*3/uL (0.00-0.03); Imm Gran Pct Auto 0.4 % (0.0-0.4); Leukocyte Esterase Urine Small (1+) (Negative); Lymphocytes Absolute Auto 1.7 X10*3/uL (1.2-4.9); Mean Corpuscular HGB Conc 32.9 g/dl (31.0-36.0); Mean Corpuscular Hemoglobin 29.9 pg (27.0-33.0); Mean Corpuscular Volume 90.8 fL (80.0-98.0); Monocytes Absolute Auto 0.7 X10*3/uL (0.1-1.2); Monocytes Percent Auto 6.8 % (2-11); Neutrophils Absolute Auto 6.9 x10*3/uL (2.0-8.3); Neutrophils Percent Auto 72.2 % (45-73); Nitrite Urine Negative (Negative); PH 5.5 (5.0-9.0); Platelet Count 215 X10*3/uL (160-400); Red Blood Count 4.55 X10*6/uL (4.60-5.80); UMIC TRIGGER UACC YES; Urine Blood Large (3+) (Negative); Urine Ketones Negative (Negative); Urine Protein 30 (1+) mg/dL (Neg-Trace); White Blood Count 9.5 X10*3/uL (4.8-10.8)
[2022-03-08 11:40] LABS: Appearance Urine Cloudy; Color Urine Dark Yellow
[2022-03-08 11:45] LABS: Bacteria Urine None Seen (None Seen); Hyaline Casts Urine 0-2 /LPF (0-2); RBC Urine >20 /HPF (0-2); UACC Culture Trigger YES; WBC Urine 21-50 /HPF (0-5)
[2022-03-08 11:48] LABS: Anion Gap 13 (12-20); Blood Urea Nitrogen 30 mg/dL (9-16); Calcium 9.7 mg/dL (8.4-10.2); Carbon Dioxide 24 mmol/L (22-29); Chloride 103 mmol/L (96-108); Estimated Glomerular Filt Rate 42; Glucose Random 329 mg/dL (60-115); Potassium 4.5 mmol/L (3.3-5.1); Sodium 135 mmol/L (135-145)
[2022-03-08 12:59] VITALS: BP 140/78; PULSE 68; RESP 15; TEMP 36.8; O2SAT 98
--- NOTE | 2022-03-08 13:04 | ED.MALEGU ---
HPI - Male Genitourinary General Chief complaint: Urogenital-Male Stated complaint: Abnormal labs Time Seen by Provider: 03/08/22 13:04 Source: patient and family () Mode of arrival: ambulatory Limitations: no limitations History of Present Illness HPI Narrative: 81-year-old male patient who presents emergency department for evaluation of urinary frequency x1 month. Patient states that he is urinating every 3-4 hours. He believes that he is able to empty his bladder. He states that there is a slight burning pressure sensation at the end of urination. He states that he wakes up 2-3 times at night to urinate as well. The patient had a enlarged prostate and his states that he had a prostate surgery approximately [address] Andrade. Patient states that his PSA has been stable. Patient states he has had urine infections in the past but has not been on antibiotics recently. He denied fever, chills, chest pain, shortness of breath. Denied nausea, vomiting, weakness or fatigue. Related Data Home Medications Medication Instructions Recorded Confirmed metoprolol tartrate 25 mg tablet 25 mg PO BID 03/17/20 03/20/21 simvastatin 40 mg tablet 40 mg PO QPM 03/17/20 03/20/21 dulaglutide 1.5 mg/0.5 mL 0.5 ml subcut TH 06/11/20 03/20/21 subcutaneous pen injector (Trulicity) blood sugar diagnostic (OneTouch #10 ea 11/11/20 03/20/21 Verio test strips) pantoprazole 20 mg tablet,delayed 20 mg PO DAILY 11/11/20 03/20/21 release diphenhydramine 25 1 tab PO BEDTIME PRN Pain 11/25/20 03/20/21 mg-acetaminophen 500 mg tablet (Tylenol PM Extra Strength) glipizide 2.5 mg tablet, extended 2.5 mg PO DAILY 12/19/20 03/20/21 release 24 hr Previous Rx's Medication Instructions Recorded ciprofloxacin HCl 500 mg tablet 500 mg PO Q12H 10 days #20 tabs 03/08/22 (Cipro) tamsulosin 0.4 mg capsule (Flomax) 0.4 mg PO DAILY #30 caps 03/08/22 Allergies Allergy/AdvReac Type Severity Reaction Status Date / Time lisinopril [LISINOPRIL] Allergy Severe ANGIOEDEMA Verified 03/20/21 13:36 Review of Systems Review of Systems: Yes all other systems are reviewed and are negative [facility] Past Medical History Medical History Back pain Decubitus ulcer, heel Diabetes mellitus Heart block History of COVID-19 Hyperlipidemia Hypertension Iron deficiency anemia Ulcer of left heel Urinary retention Surgical History History of back surgery History of esophagogastroduodenoscopy History of left hip replacement Hx of cataract extraction Hx of colonoscopy Family History Family History Brother Testicular cancer Social History Social History Household Members: Spouse Housing: House Do you presently have visiting nurse or other home services: Yes ([facility] 2x wk for wound care to left heel) Alcohol intake: never Patient Tobacco Use Status: Tobacco use Unknown Advance Directives: No service: No Current occupational status: retired Physical Exam Vital Signs: Vital Signs: Last Vital Signs Temp 97.8 F 03/08/22 14:00 Pulse 68 03/08/22 14:00 Resp 15 03/08/22 14:00 BP 153/74 H 03/08/22 14:00 Pulse Ox 98 03/08/22 14:00 O2 Del Method 03/08/22 14:00 BMI result Body Mass Index 28.0 Const: General: cooperative and no acute distress Orientation/consciousness: oriented to person and oriented to place Limitations: no limitations HEENT: Head: Yes normal to inspection, Yes normocephalic and Yes atraumatic Ears: external ears normal General nose exam: Normal external nose present Face and sinus: Yes normal facial exam Mouth: Normal oral and palatal mucosa present Throat: Yes posterior oropharynx normal Eyes: General: appearance normal, both eyes and all related structures Pupils: Equal, round and reactive pupils present Neck: Neck: Yes normal visual inspection, Yes no lymphadenopathy, Yes trachea midline and Yes supple Chest: Chest palpation & inspection: normal inspection of the chest and normal palpation of entire chest wall Resp: Effort & Inspection: normal respiratory effort and able to speak in complete sentences Auscultation: clear to auscultation bilaterally Cardio: Rate: regular rate Rhythm: regular rhythm Heart sounds: S1 normal heart sound present, S2 normal heart sound present and no murmurs GI: Inspection: Yes normal to inspection Palpation (GI): Soft to palpation, nontender and no guarding Auscultation: normal bowel sounds : General: Yes no CVA tenderness Back/Spine/Pelvis: Back: no CVA tenderness Skin: General skin exam: no rashes or lesions noted Neuro: General: oriented to person and oriented to place Cranial nerves: Yes CN's II-XII intact bilaterally and Yes Equal, round and reactive pupils present Cognition (Neuro): normal cognition Motor exam (neuro): 5/5 motor strength present throughout Extrem: General: Yes normal to inspection Psych: Appearance: grossly normal Speech and movement: Normal speech and movement present Affect: normal affect Attitude: cooperative Thought process: Normal thought process present Thought content: Normal thought content present Course Course Course Narrative: 81-year-old male who presents emergency department for evaluation of urinary frequency, nocturia and suprapubic pain x1 month. Patient's physical examination was unremarkable. Patient's laboratory evaluation revealed a normal CBC. The patient's CMP revealed a slight elevation in his BUN and creatinine of 30 and 1.6. Glucose was elevated at 329. Patient's urinalysis revealed 3+ blood and 1+ leukocyte esterase. Microscopic revealed greater than 20 RBCs, 21-50 wbc's, 5 squamous cells and no bacteria. The patient had a pre void bladder scan of 300 cc, patient was able to void 300 cc and had less than 50 cc postvoid residual. At this time I do not think the patient has urinary retention. I think that his symptoms are consistent with prostatitis. Patient will be treated with ciprofloxacin 500 mg twice a day for 10 days and Flomax 0.4 mg for 1 month. He was advised to follow-up with his urologist for re-evaluation and return if his symptoms get worse. Medical Decision Making Lab Data Result Diagrams: 03/08/22 11:20 03/08/22 11:20 Labs: Lab Results 03/08/22 03/08/22 03/08/22 Range/Units 11:20 11:20 11:20 WBC 9.5 (4.8-10.8) X10*3/uL RBC 4.55 L (4.60-5.80) X10*6/uL Hgb 13.6 L (14.0-18.0) g/dl Hct 41.3 L (42.0-52.0) % MCV 90.8 (80.0-98.0) fL MCH 29.9 (27.0-33.0) pg MCHC 32.9 (31.0-36.0) g/dl RDW 15.0 (11.0-16.0) % Plt Count 215 (160-400) X10*3/uL MPV 12.0 (9.4-12.4) fL Immature Gran % (Auto) 0.4 (0.0-0.4) % Neut % (Auto) 72.2 (45-73) % Lymph % (Auto) 18.0 L (20-40) % Ness % (Auto) 6.8 (2-11) % Eos % (Auto) 2.0 (0-4) % Baso % (Auto) 0.6 (0-2) % Lymph # (Auto) 1.7 (1.2-4.9) X10*3/uL Ness # (Auto) 0.7 (0.1-1.2) X10*3/uL Eos # (Auto) 0.2 (0.0-0.4) X10*3/uL Baso # (Auto) 0.1 (0.0-0.2) X10*3/uL Abs Immat Gran (auto) 0.04 H (0.00-0.03) X10*3/uL Absolute Neuts (auto) 6.9 (2.0-8.3) x10*3/uL Absolute Nucleated RBC 0.000 (0.0-0.012) X10*3/uL Nucleated RBC % (auto) 0.0 (0.0-0.2) /100WBC Sodium 135 (135-145) mmol/L Potassium 4.5 (3.3-5.1) mmol/L Chloride 103 (96-108) mmol/L Carbon Dioxide 24 (22-29) mmol/L Anion Gap 13 (12-20) BUN 30 H (9-16) mg/dL Creatinine 1.60 H (0.5-1.4) mg/dL Estim Creat Clear Calc 40.0 Estimated GFR 42 Random Glucose 329 H D (60-115) mg/dL Calcium 9.7 D (8.4-10.2) mg/dL Urine Color Dark Yellow Urine Appearance Cloudy Urine pH 5.5 (5.0-9.0) Ur Specific [place] 1.020 (1.005-1.025) Urine Protein 30 (1+) H (Neg-Trace) mg/dL Urine Glucose (UA) >=1000 H (Negative) mg/dL Urine Ketones Negative (Negative) mg/dL Urine Blood Large (3+) H (Negative) Urine Nitrite Negative (Negative) Ur Leukocyte Esterase Small (1+) H (Negative) Urine RBC >20 H (0-2) /HPF Urine WBC 21-50 H (0-5) /HPF Ur Squamous Epith Cells 3-5 (0-2) /HPF Urine Bacteria None Seen (None Seen) Hyaline Casts 0-2 (0-2) /LPF Discharge Plan Discharge Clinical Impression: Urinary frequency, Dysuria, Acute prostatitis with hematuria Patient Disposition: Home, Self-Care Instructions: Prostatitis (ED) Additional Instructions: Your blood work was unremarkable except for an elevated glucose (sugar) of 329. Your kidney numbers were slightly elevated suggesting that you might be a little dehydrated. Therefore I want you to increase the amount of fluid that you drink for the next week to try to stay hydrated. You were able to void all of the urine in your bladder so I do not think that your symptoms are caused by retaining urine in your bladder. Your symptoms are consistent with inflammation and possibly infection of your prostate (prostatitis) Take take ciprofloxacin 500 mg pills, 1 pill every 12 hours for 10 days. Take Flomax (tamsulosin) 0.4 mg once at night for 1 month. This medication may help if your prostate is swollen. Follow-up with your urology in 1-2 weeks Please return to the emergency department if your symptoms get worse or if you develop any symptoms that are concerning to you. Prescriptions: New ciprofloxacin HCl [Cipro] 500 mg tablet 500 mg PO Q12H 10 Days Qty: 20 0RF tamsulosin [Flomax] 0.4 mg capsule 0.4 mg PO DAILY Qty: 30 0RF No Action Trulicity 1.5 mg/0.5 mL pen injector 0.5 ml subcut TH diphenhydramine-acetaminophen [Tylenol PM Extra Strength] 25-500 mg Tablet 1 tab PO BEDTIME PRN (Reason: Pain) glipizide 2.5 mg tablet extended release 24hr 2.5 mg PO DAILY metoprolol tartrate 25 mg tablet 25 mg PO BID simvastatin 40 mg tablet 40 mg PO QPM (DME) OneTouch Verio test strips Strip See Rx Instructions Not Applicable TID Qty: 10 Rx Instructions: As directed pantoprazole 20 mg tablet,delayed release (DR/EC) 20 mg PO DAILY
[2022-03-08 14:00] VITALS: BP 153/74; PULSE 68; RESP 15; TEMP 36.6; O2SAT 98
== END 2022-03-08 15:20 | disposition home or self-care (01) ==
PROVIDERS: Emergency Provider Emergency Medicine Emergency Medical Services; PCP Physician Assistant Medical
DX: N41.0 Acute prostatitis (principal); R31.9 Hematuria, unspecified; R35.0 Frequency of micturition; R30.0 Dysuria; E11.9 Type 2 diabetes mellitus without complications; I10 Essential (primary) hypertension; E78.5 Hyperlipidemia, unspecified; Z79.85 Long-term (current) use of injectable non-insulin antidiabetic drugs; Z79.02 Long term (current) use of antithrombotics/antiplatelets; Z79.899 Other long term (current) drug therapy
CPT/HCPCS: 36415; 51798; 80048; 81001; 85025; 87086; 87088; 87186; 99283; 99284

== ENCOUNTER → 2022-03-20 12:26 | Outpatient (BNVA) | payer MEDICARE, SELFPAY | PROVIDERS: PCP Physician Assistant Medical; Referring Provider Physician Assistant Medical; Visit Provider Internal Medicine | DX: I45.9 Conduction disorder, unspecified (principal); I34.81 Nonrheumatic mitral (valve) annulus calcification; R00.1 Bradycardia, unspecified; E11.8 Type 2 diabetes mellitus with unspecified complications; Z45.018 Encounter for adjustment and management of other part of cardiac pacemaker | CPT/HCPCS: 93005; 93280; 99212 ==

== ENCOUNTER 2022-07-11 16:00 | Inpatient (IN) | payer MEDICARE, SELFPAY ==
--- NOTE | ~2022-07-11 | US_ITS ---
EXAMINATION: US RETROPERITONEAL LIMITED (RENAL ONLY) CLINICAL INFORMATION: Check hydro. COMPARISON: CT abdomen and pelvis 06/12/2020. TECHNIQUE: Real-time imaging of the kidneys. FINDINGS: RIGHT KIDNEY: 10.4 x 6.5 x 5.2 cm (SAG x AP x TRV). The kidney is normal in size, contour, and echogenicity. Renal cortical thickness is normal. No renal calculi. There is anechoic cyst in midpole measuring 1.4 x 1.1 x 1.1 cm and lower pole measuring 1.3 x 1.1 x 1.2 cm. There is mild hydronephrosis. LEFT KIDNEY: 9.4 x 4.9 x 4.6 cm (SAG x AP x TRV). The kidney is normal in size, contour, and echogenicity. Renal cortical thickness is normal. No renal calculi. An anechoic cyst seen in midpole measuring 1.2 x 1.5 x 1.3 cm. There is moderate hydronephrosis. BLADDER: There is a soft tissue mass focal thickening along the dependent/posterior bladder wall, suspicious. Bilateral ureteral jets are not seen. US/US renal BI IMPRESSION: 1. Bilateral renal cysts. 2. Mild right and moderate left hydronephrosis. No echogenic stones seen. 3. There is focal soft tissue thickening along the dependent/posterior bladder wall. Suspicious of bladder mass. Recommend cystoscopy
--- NOTE | ~2022-07-11 | US_ITS ---
EXAMINATION: ANKLE-BRACHIAL INDICES SINGLE LEVEL PULSE VOLUME RECORDING ARTERIAL DUPLEX RIGHT LEG CLINICAL INFORMATION: Wounds. COMPARISON: None TECHNIQUE: Ankle-brachial indices and PVR at the ankle were obtained. Duplex Doppler of the right lower extremity arterial cysts was performed. FINDINGS: RIGHT: Ankle-brachial index: 1.53; noncompressible vessels. PVR: Normal Mild diffuse atherosclerotic disease. Common femoral: PSV 97 cm/s. Biphasic waveform. Deep femoral: PSV 57 cm/s. Biphasic waveform. Proximal superficial femoral: PSV 71 cm/s. Triphasic waveform. Mid superficial femoral: PSV 80 cm/s. Triphasic waveform. Distal superficial femoral: PSV 172 cm/s. Triphase waveform. Popliteal: PSV 71 cm/s. Triphasic waveform. Posterior tibial: PSV 110 cm/s. Biphasic waveform. Peroneal: PSV 41 cm/s. Biphasic waveform. LEFT: Ankle-brachial index: 1.53; noncompressible vessels. PVR: Normal US/US AG complete IMPRESSION: No evidence of hemodynamically significant peripheral arterial disease in the right lower extremity.
--- NOTE | ~2022-07-11 | US_ITS ---
EXAMINATION: ANKLE-BRACHIAL INDICES SINGLE LEVEL PULSE VOLUME RECORDING ARTERIAL DUPLEX RIGHT LEG CLINICAL INFORMATION: Wounds. COMPARISON: None TECHNIQUE: Ankle-brachial indices and PVR at the ankle were obtained. Duplex Doppler of the right lower extremity arterial cysts was performed. FINDINGS: RIGHT: Ankle-brachial index: 1.53; noncompressible vessels. PVR: Normal Mild diffuse atherosclerotic disease. Common femoral: PSV 97 cm/s. Biphasic waveform. Deep femoral: PSV 57 cm/s. Biphasic waveform. Proximal superficial femoral: PSV 71 cm/s. Triphasic waveform. Mid superficial femoral: PSV 80 cm/s. Triphasic waveform. Distal superficial femoral: PSV 172 cm/s. Triphase waveform. Popliteal: PSV 71 cm/s. Triphasic waveform. Posterior tibial: PSV 110 cm/s. Biphasic waveform. Peroneal: PSV 41 cm/s. Biphasic waveform. LEFT: Ankle-brachial index: 1.53; noncompressible vessels. PVR: Normal US/US arterial duplex LE RT IMPRESSION: No evidence of hemodynamically significant peripheral arterial disease in the right lower extremity.
--- NOTE | ~2022-07-11 | CT_ITS ---
EXAMINATION: CT FOOT WITHOUT CONTRAST, RIGHT CLINICAL INFORMATION: Rule out osteomyelitis COMPARISON: Radiographs dated 07/11/2022 TECHNIQUE: Multidetector volumetric imaging was obtained through the right foot without intravenous contrast. Multiplanar reformatted images in coronal and sagittal orientations were submitted. This CT examination was performed using dose optimization techniques as appropriate, variously including the following: *Automated exposure control *Adjustment of mA and/or kV according to patient size (this includes techniques or standardized protocols for targeted exams where dose is matched to indication/reason for exam; i.e. extremities or head) *Use of iterative reconstruction technique DLP: 177 mGy-cm FINDINGS: At the plantar/medial aspect of the great toe MTP joint, there is a 3 x 2.5 cm soft tissue defect with a depth of approximately 1 cm, extending to the level of the hallux sesamoids and the sesamoidal ligaments. Subcutaneous gas extends distally within the plantar soft tissues along the flexor hallucis longus tendon to the level of the proximal phalangeal base. No discrete fluid collections are identified in this region, though sensitivity for fluid collections is somewhat limited on this CT without intravenous contrast material. 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 Erosions are evident at the margins of the first MTP joint which could be due to gout or other crystalline or inflammatory arthropathies. These erosions are most notable along the medial margins of the first metatarsal head and possible phalangeal base. Superimposed osteomyelitis is possible in the setting of these erosions. No definitive sites of acute osteolysis. No additional soft tissue wounds are identified. 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 Mild to moderate osteoarthritis is also present in the subtalar and talocrural joints. There is marked degenerative remodeling of the fourth toe PIP joint with slight dorsal displacement of the middle phalanx at the remodeled articulation. Musculature is diffusely atrophic and fatty replaced in the foot. Tendons are grossly intact, though not well assessed. No appreciable tenosynovitis. 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 Enthesopathic spurs are present at the Achilles tendon insertion and plantar fascial origin. Calcific atherosclerosis is present in the arteries of the ankle and foot. CT/CT foot RT wo IV con IMPRESSION: 1. Soft tissue wound at the plantar/medial aspect of the great toe MTP joint with associated soft tissue gas extending distally along the flexor hallucis longus tendon to the level of the proximal phalangeal base. No discrete fluid collections are identified, though sensitivity for fluid abscess is limited by CT, particularly in the absence of intravenous contrast. 2. Erosions at the first MTP joint are most likely due to gout or other crystalline or inflammatory arthropathies. Superimposed osteomyelitis is possible, though there is no definitive CT findings of osteomyelitis. 3. 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
--- NOTE | ~2022-07-11 | XR_ITS ---
EXAMINATION: XR FOOT, RIGHT CLINICAL INFORMATION: Diabetic foot ulcer. Evaluate for osteomyelitis COMPARISON: 08/20/2019 TECHNIQUE: AP, lateral, and oblique views of the right foot. FINDINGS: There is a soft tissue defect along the plantar aspect of the forefoot in the region of the first MTP joint. Extensive sclerotic degenerative changes at the first MTP joint are seen which have progressed from the 08/20/2019 examination. The first proximal phalanx is difficult to evaluate due to the obliquities of imaging. There is improved ossification of the fourth phalanges when compared to the 2019 study. Extensive degenerative changes in the midfoot have also progressed from the prior study. Prominent vascular calcification. No radiopaque foreign body. XR/XR foot RT min 3V IMPRESSION: Soft tissue defect along the plantar aspect of the forefoot in the region of the first MTP joint. Extensive chronic appearing and degenerative changes to the midfoot and first MTP joint. I do not appreciate any definitive acute superimposed fracture or dislocation although evaluation of the first proximal phalanx is limited due to the obliquities of imaging. Unfortunately subtle osteomyelitis would be difficult to exclude with such extensive chronic changes present especially in light of the soft tissue defect. MRI may be more definitive.
--- NOTE | 2022-07-11 16:05 | ED.GENADULT ---
HPI - General Adult General Chief complaint: Wound/Laceration <RADHA Mejia - Last Filed: 07/11/22 16:09> Stated complaint: wound sole of right foot <RADHA Mejia - Last Filed: 07/11/22 16:09> Time Seen by Provider: 07/11/22 17:16 <RADHA Mejia - Last Filed: 07/11/22 16:09> Source: patient and family () <Toni Tyson MD - Last Filed: 07/11/22 19:59> Mode of arrival: ambulatory <Toni Tyson MD - Last Filed: 07/11/22 19:59> Limitations: no limitations <Toni Tyson MD - Last Filed: 07/11/22 19:59> History of Present Illness HPI narrative: 81-year-old male who presents emergency department for evaluation right diabetic foot ulcer with purulent drainage and cellulitis of the right foot and ankle. The patient and his are poor informant sit is difficult to get a history from them. Patient was seen by incinerator attendant 3 weeks prior and was noted to have an ulcer on the dorsal aspect of the 1st MTP joint. He was started on amoxicillin 3 times a day and states that he she says completed this course of medications approximately 3 days prior. He states that he has no sensation is foot in yesterday his foot became swollen and red. He was seen at the wound care clinic and was advised to go to the emergency department for evaluation admission for IV antibiotics. He denied fever chills but he states that he is feeling fatigued. He has no other complaints. <Toni Tyson MD - Last Filed: 07/11/22 19:59> Related Data Home medications: Home Medications Medication Instructions Recorded Confirmed metoprolol tartrate 25 mg tablet 25 mg PO BID 03/17/20 03/20/22 simvastatin 40 mg tablet 40 mg PO QPM 03/17/20 03/20/22 dulaglutide 1.5 mg/0.5 mL 0.5 ml subcut TH 06/11/20 03/20/22 [facility] blood sugar diagnostic (OneTouch #10 ea 08/27/21 01/03/23 Verio test strips) pantoprazole 20 mg tablet,delayed 20 mg PO DAILY 11/11/20 03/20/22 release diphenhydramine 25 1 tab PO BEDTIME PRN Pain 11/25/20 03/20/22 mg-acetaminophen 500 mg tablet (Tylenol PM Extra Strength) glipizide 2.5 mg tablet, extended 2.5 mg PO DAILY 12/19/20 03/20/22 release 24 hr amoxicillin 500 mg capsule 2,000 mg PO ONCE 03/20/22 03/20/22 Previous Rx's Medication Instructions Recorded tamsulosin 0.4 mg capsule (Flomax) 0.4 mg PO DAILY #30 caps 03/08/22 <RADHA Mejia - Last Filed: 07/11/22 16:09> Allergies/adverse reactions: Allergies Allergy/AdvReac Type Severity Reaction Status Date / Time lisinopril [LISINOPRIL] Allergy Severe ANGIOEDEMA Verified 07/11/22 16:06 <RADHA Mejia - Last Filed: 07/11/22 16:09> Review of Systems Review of Systems: Yes all other systems are reviewed and are negative <Toni Tyson MD - Last Filed: 07/11/22 19:59> [facility] Past Medical History [facility] Narrative: Social history: He lives with his who is here in the emergency department with him. He denies tobacco, alcohol and drug use <Toni Tyson MD - Last Filed: 07/11/22 19:59> Medical History: Medical History Back pain Decubitus ulcer, heel Diabetes mellitus Heart block History of COVID-19 Hyperlipidemia Hypertension Iron deficiency anemia Ulcer of left heel Urinary retention <RADHA Mejia - Last Filed: 07/11/22 16:09> Surgical History: Surgical History History of back surgery History of esophagogastroduodenoscopy History of left hip replacement Hx of cataract extraction Hx of colonoscopy <RADHA Mejia - Last Filed: 07/11/22 16:09> Family History Family History: Family History Brother Testicular cancer <RADHA Mejia - Last Filed: 07/11/22 16:09> Social History Social History: Social History Household Members: Spouse Housing: House Do you presently have visiting nurse or other home services: Yes (VNA 2x wk for wound care to left heel) Alcohol intake: never Patient Tobacco Use Status: Tobacco use Unknown Use of substances other than those prescribed or required for medical reasons: No Advance Directives: Yes Advance Directives Information Provided: No Advance Directives on File: No service: No Current occupational status: retired <RADHA Mejia - Last Filed: 07/11/22 16:09> Physical Exam ED Vital Signs: Vital Signs - 24 hr 07/11/22 16:06 Temperature 97.4 F Pulse Rate 111 H Respiratory Rate 18 Blood Pressure 150/73 H Pulse Oximetry 98 Oxygen Delivery Method Room Air BMI result Body Mass Index 28.8 <RADHA Mejia - Last Filed: 07/11/22 16:09> Vital Signs - 24 hr 07/11/22 16:06 Temperature 97.4 F Pulse Rate 111 H Respiratory Rate 18 Blood Pressure 150/73 H Pulse Oximetry 98 Oxygen Delivery Method Room Air BMI result Body Mass Index 28.8 <Toni Tyson MD - Last Filed: 07/11/22 19:59> Const Other: Patient is awake and alert, does not appear to be in distress, there is a very foul odor coming from his right foot ulcer <Toni Tyson MD - Last Filed: 07/11/22 19:59> HENMT Head: Yes normal to inspection, Yes normocephalic and Yes atraumatic <Toni Tyson MD - Last Filed: 07/11/22 19:59> Ears: external ears normal <Toni Tyson MD - Last Filed: 07/11/22 19:59> General nose exam: Normal external nose present <Toni Tyson MD - Last Filed: 07/11/22 19:59> Face and sinus: Yes normal facial exam <MD Miguelina Hancock Last Filed: 07/11/22 19:59> Mouth: Normal oral and palatal mucosa present <MD Miguelina Hancock Last Filed: 07/11/22 19:59> Throat: Yes posterior oropharynx normal <MD Miguelina Hancock Last Filed: 07/11/22 19:59> Eyes General: appearance normal, both eyes and all related structures <MD Miguelina Hancock Last Filed: 07/11/22 19:59> Pupils: Equal, round and reactive pupils present <MD Miguelina Hancock Last Filed: 07/11/22 19:59> Neck Neck: Yes normal visual inspection, Yes no lymphadenopathy, Yes trachea midline and Yes supple <Toni Tyson MD - Last Filed: 07/11/22 19:59> Chest Chest palpation & inspection: normal inspection of the chest and normal palpation of entire chest wall <MD Miguelina Hancock Last Filed: 07/11/22 19:59> Resp Effort & Inspection: normal respiratory effort and able to speak in complete sentences <MD Miguelina Hancock Last Filed: 07/11/22 19:59> Auscultation: clear to auscultation bilaterally <MD Miguelina Hancock Last Filed: 07/11/22 19:59> Cardio Rate: regular rate <MD Miguelina Hancock Last Filed: 07/11/22 19:59> Rhythm: regular rhythm <MD Miguelina Hancock Last Filed: 07/11/22 19:59> Heart sounds: S1 normal heart sound present, S2 normal heart sound present and no murmurs <MD Miguelina Hancock Last Filed: 07/11/22 19:59> GI Inspection: Yes normal to inspection <MD Miguelina Hancock Last Filed: 07/11/22 19:59> Palpation (GI): Soft to palpation, nontender and no guarding <MD Miguelina Hancock Last Filed: 07/11/22 19:59> Auscultation: normal bowel sounds <Toni Tyson MD - Last Filed: 07/11/22 19:59> General: Yes no CVA tenderness <Toni Tyson MD - Last Filed: 07/11/22 19:59> Back/Spine/Pelvis Back: no CVA tenderness <Toni Tyson MD - Last Filed: 07/11/22 19:59> Neuro Cranial nerves: Yes CN's II-XII intact bilaterally and Yes Equal, round and reactive pupils present <Toni Tyson MD - Last Filed: 07/11/22 19:59> Cognition (Neuro): normal cognition <Toni Tyson MD - Last Filed: 07/11/22 19:59> Motor exam (neuro): 5/5 motor strength present throughout <Toni Tyson MD - Last Filed: 07/11/22 19:59> Extrem Other: There is a large, deep, multi layer ulcer to the dorsal aspect of the 1st MTP joint, there is a very purulent odor coming from this ulcer he has urea dark erythema that extends along the ventral aspect of the foot to just beyond the ankle with erythema with patchy erythema extending to just below the knee . <Toni Tyson MD - Last Filed: 07/11/22 19:59> General: Yes normal to inspection <Toni Tyson MD - Last Filed: 07/11/22 19:59> Psych Appearance: grossly normal <Toni Tyson MD - Last Filed: 07/11/22 19:59> Speech and movement: Normal speech and movement present <Toni Tyson MD - Last Filed: 07/11/22 19:59> Affect: normal affect <Toni Tyson MD - Last Filed: 07/11/22 19:59> Attitude: cooperative <Toni Tyson MD - Last Filed: 07/11/22 19:59> Course Course Course Narrative: This is an RME: Additional HPI, ROS, PE not included below will be deferred to primary provider. 81 year old male with PMH of TIID presents to the ED with right foot cellulitis. Patient failed PO amoxicillin. Recommended to come to ED by wound care for IV antibiotics. PE: cellulitis extending beyond skin markers on right foot Plan: labs, blood cultures <RADHA Mejia - Last Filed: 07/11/22 16:09> Medications Administered Discontinued Medications Generic Name Dose Route Start Last Admin Trade Name Freq PRN Reason Stop Dose Admin Sodium Chloride 1,000 mls @ 999 mls/hr 07/11/22 16:15 07/11/22 18:54 Ns IV 07/11/22 17:15 Infused .Q1H1M JIL Infusion Piperacillin Sod/Tazobactam 50 mls @ 100 mls/hr 07/11/22 16:07 07/11/22 18:54 Sod 3.375 gm/ Sodium Chloride IV 07/11/22 16:36 Infused ONCE ONE Infusion <RADHA Mejia - Last Filed: 07/11/22 16:09> Medications Administered Discontinued Medications Generic Name Dose Route Start Last Admin Trade Name Freq PRN Reason Stop Dose Admin Sodium Chloride 1,000 mls @ 999 mls/hr 07/11/22 16:15 07/11/22 18:54 Ns IV 07/11/22 17:15 Infused .Q1H1M JIL Infusion Piperacillin Sod/Tazobactam 50 mls @ 100 mls/hr 07/11/22 16:07 07/11/22 18:54 Sod 3.375 gm/ Sodium Chloride IV 07/11/22 16:36 Infused ONCE ONE Infusion <Toni Tyson MD - Last Filed: 07/11/22 19:59> Medical Decision Making Medical Decision Making MDM Narrative: 81-year-old male with history of diabetes and hyperlipidemia who presents emergency department for evaluation of a deep, multilayer diabetic foot ulcer to the fall aspect of the right MTP joint with significant erythema extending to just below the knee consistent with cellulitis. My interpretation of patient's laboratory data is as follows: WBC elevated 17,900 bicarb low 19, anion gap elevated 21. BUN elevated 42, creatinine elevated 2.18. Glucose elevated 250. Bilirubin elevated 1.3. The AST elevated 39. <Toni Tyson MD - Last Filed: 07/11/22 19:59> Differential Diagnosis Differential diagnosis includes was not limited to purulent diabetic foot ulcer, osteomyelitis, cellulitis <Toni Tyson MD - Last Filed: 07/11/22 19:59> Admission/Observation Consideration of admission/observation: Escalation of care including admission/observation considered <Toni Tyson MD - Last Filed: 07/11/22 19:59> Consult Healthcare Provider Management of the patient was discussed with: Hospitalist <Toni Tyson MD - Last Filed: 07/11/22 19:59> Lab Data MDM Lab Attestation statement: I reviewed the patient's lab results. <Toni Tyson MD - Last Filed: 07/11/22 19:59> Cm2 <Toni Tyson MD - Last Filed: 07/11/22 19:59> Result Diagrams: 07/11/22 16:43 07/11/22 16:43 <RADHA Mejia - Last Filed: 07/11/22 16:09> Labs: Lab Results 07/11/22 07/11/22 07/11/22 Range/Units 16:42 16:43 16:43 WBC 17.9 H (4.8-10.8) X10*3/uL RBC 4.56 L (4.60-5.80) X10*6/uL Hgb 13.9 L (14.0-18.0) g/dl Hct 41.5 L (42.0-52.0) % MCV 91.0 (80.0-98.0) fL MCH 30.5 (27.0-33.0) pg MCHC 33.5 (31.0-36.0) g/dl RDW 13.2 (11.0-16.0) % Plt Count 241 (160-400) X10*3/uL MPV 10.5 (9.4-12.4) fL Immature Gran % (Auto) 0.6 H (0.0-0.4) % Neut % (Auto) 88.9 H (45-73) % Lymph % (Auto) 3.9 L (20-40) % [place] % (Auto) 6.3 (2-11) % Eos % (Auto) 0.1 (0-4) % Baso % (Auto) 0.2 (0-2) % Lymph # (Auto) 0.7 L (1.2-4.9) X10*3/uL [place] # (Auto) 1.1 (0.1-1.2) X10*3/uL Eos # (Auto) 0.0 (0.0-0.4) X10*3/uL Baso # (Auto) 0.0 (0.0-0.2) X10*3/uL Abs Immat Gran (auto) 0.10 H (0.00-0.03) X10*3/uL Absolute Neuts (auto) 15.9 H (2.0-8.3) x10*3/uL Absolute Nucleated RBC 0.000 (0.0-0.012) X10*3/uL Nucleated RBC % (auto) 0.0 (0.0-0.2) /100WBC Sodium 138 (135-145) mmol/L Potassium 4.5 (3.3-5.1) mmol/L Chloride 103 (96-108) mmol/L Carbon Dioxide 19 L (22-29) mmol/L Anion Gap 21 H (12-20) BUN 42 H (9-16) mg/dL Creatinine 2.18 H (0.5-1.4) mg/dL Estim Creat Clear Calc 29.7 Estimated GFR 29 Random Glucose 250 H (60-115) mg/dL Lactic Acid 1.9 (0.5-2.0) mmol/L Calcium 9.4 (8.4-10.2) mg/dL Total Bilirubin 1.3 H (0.0-1.0) mg/dL AST 39 H (5-37) U/L ALT 40 (0-40) U/L Alkaline Phosphatase 106 (39-117) U/L Total Protein 6.9 (6.5-8.0) g/dL Albumin 3.8 (3.5-5.0) g/dL <RDAHA Mejia - Last Filed: 07/11/22 16:09> Lab Results 07/11/22 07/11/22 07/11/22 Range/Units 16:42 16:43 16:43 WBC 17.9 H (4.8-10.8) X10*3/uL RBC 4.56 L (4.60-5.80) X10*6/uL Hgb 13.9 L (14.0-18.0) g/dl Hct 41.5 L (42.0-52.0) % MCV 91.0 (80.0-98.0) fL MCH 30.5 (27.0-33.0) pg MCHC 33.5 (31.0-36.0) g/dl RDW 13.2 (11.0-16.0) % Plt Count 241 (160-400) X10*3/uL MPV 10.5 (9.4-12.4) fL Immature Gran % (Auto) 0.6 H (0.0-0.4) % Neut % (Auto) 88.9 H (45-73) % Lymph % (Auto) 3.9 L (20-40) % [place] % (Auto) 6.3 (2-11) % Eos % (Auto) 0.1 (0-4) % Baso % (Auto) 0.2 (0-2) % Lymph # (Auto) 0.7 L (1.2-4.9) X10*3/uL [place] # (Auto) 1.1 (0.1-1.2) X10*3/uL Eos # (Auto) 0.0 (0.0-0.4) X10*3/uL Baso # (Auto) 0.0 (0.0-0.2) X10*3/uL Abs Immat Gran (auto) 0.10 H (0.00-0.03) X10*3/uL Absolute Neuts (auto) 15.9 H (2.0-8.3) x10*3/uL Absolute Nucleated RBC 0.000 (0.0-0.012) X10*3/uL Nucleated RBC % (auto) 0.0 (0.0-0.2) /100WBC Sodium 138 (135-145) mmol/L Potassium 4.5 (3.3-5.1) mmol/L Chloride 103 (96-108) mmol/L Carbon Dioxide 19 L (22-29) mmol/L Anion Gap 21 H (12-20) BUN 42 H (9-16) mg/dL Creatinine 2.18 H (0.5-1.4) mg/dL Estim Creat Clear Calc 29.7 Estimated GFR 29 Random Glucose 250 H (60-115) mg/dL Lactic Acid 1.9 (0.5-2.0) mmol/L Calcium 9.4 (8.4-10.2) mg/dL Total Bilirubin 1.3 H (0.0-1.0) mg/dL AST 39 H (5-37) U/L ALT 40 (0-40) U/L Alkaline Phosphatase 106 (39-117) U/L Total Protein 6.9 (6.5-8.0) g/dL Albumin 3.8 (3.5-5.0) g/dL <Toni Tyson MD - Last Filed: 07/11/22 19:59> Discharge Plan Discharge Prescriptions: No Action Trulicity 1.5 mg/0.5 mL pen injector 0.5 ml subcut TH diphenhydramine-acetaminophen [Tylenol PM Extra Strength] 25-500 mg Tablet 1 tab PO BEDTIME PRN (Reason: Pain) glipizide 2.5 mg tablet extended release 24hr 2.5 mg PO DAILY tamsulosin [Flomax] 0.4 mg capsule 0.4 mg PO DAILY Qty: 30 0RF metoprolol tartrate 25 mg tablet 25 mg PO BID simvastatin 40 mg tablet 40 mg PO QPM (DME) OneTouch Verio test strips Strip See Rx Instructions Not Applicable TID Qty: 10 Rx Instructions: As directed pantoprazole 20 mg tablet,delayed release (DR/EC) 20 mg PO DAILY amoxicillin 500 mg capsule 2,000 mg PO ONCE <RADHA Mejia - Last Filed: 07/11/22 16:09>
[2022-07-11 16:06] VITALS: BP 150/73; PULSE 111; RESP 18; TEMP 36.3; O2SAT 98; BMI 28.8
[2022-07-11 16:49] LABS: MANUAL DIFF FLAG NO
[2022-07-11 16:51] LABS: Basophils Percent Auto 0.2 % (0-2); Eosinophils Percent Auto 0.1 % (0-4); Hematocrit 41.5 % (42.0-52.0); Hemoglobin 13.9 g/dl (14.0-18.0); Imm Gran Pct Auto 0.6 % (0.0-0.4); Lymphocytes Absolute Auto 0.7 X10*3/uL (1.2-4.9); Lymphocytes Percent Auto 3.9 % (20-40); Mean Corpuscular HGB Conc 33.5 g/dl (31.0-36.0); Mean Corpuscular Hemoglobin 30.5 pg (27.0-33.0); Mean Platelet Volume 10.5 fL (9.4-12.4); Monocytes Absolute Auto 1.1 X10*3/uL (0.1-1.2); Monocytes Percent Auto 6.3 % (2-11); Neutrophils Absolute Auto 15.9 x10*3/uL (2.0-8.3); Neutrophils Percent Auto 88.9 % (45-73); Platelet Count 241 X10*3/uL (160-400); Red Blood Count 4.56 X10*6/uL (4.60-5.80); Red Cell Distribution Width 13.2 % (11.0-16.0); White Blood Count 17.9 X10*3/uL (4.8-10.8)
[2022-07-11 17:11] LABS: Lactic Acid 1.9 mmol/L (0.5-2.0)
[2022-07-11 17:13] LABS: Alanine Aminotransferase 40 U/L (0-40); Albumin Level 3.8 g/dL (3.5-5.0); Alkaline Phosphatase 106 U/L (39-117); Anion Gap 21 (12-20); Aspartate Amino Transferase 39 U/L (5-37); Bilirubin Total 1.3 mg/dL (0.0-1.0); Blood Urea Nitrogen 42 mg/dL (9-16); Calcium 9.4 mg/dL (8.4-10.2); Carbon Dioxide 19 mmol/L (22-29); Chloride 103 mmol/L (96-108); Creatinine Clr Calc Pharmacy 29.7; Estimated Glomerular Filt Rate 29; Glucose Random 250 mg/dL (60-115); Potassium 4.5 mmol/L (3.3-5.1); Sodium 138 mmol/L (135-145); Total Protein 6.9 g/dL (6.5-8.0)
[2022-07-11] MEDS: 0.9 % Sodium Chloride 1,000 ML 999 ML IV (17:44)
[2022-07-11] MEDS: Piperacillin Sodium/Tazobactam 3.375 GM in 0.9 % Sodium Chloride 50 ML IV (17:52)
--- NOTE | 2022-07-11 18:48 | PC.NURSE ---
Alert and oriented, resp even and unlabored. Wounds noted to bottom of right foot, culture obtained.
--- NOTE | 2022-07-11 19:07 | PC.NURSE ---
assumed care of patient at 1900 - pt resting comfortably on stretcher, at bedside. will CTM
[2022-07-11 19:53] VITALS: BP 123/71; PULSE 105; RESP 16; TEMP 37.2; O2SAT 98
[2022-07-11 20:23] LABS: COVID-19 Test Negative (Negative); IDNOW Serial# BCCEAD1C
--- NOTE | 2022-07-11 20:28 | P.HPHOSP_ITS ---
History of Present Illness Date of Service: 07/11/22 Attending physician on admission: Mireille Varghese Chief Complaint: foot infection 81-year-old male with history of uncontrolled xmt-smznpyq-vbbgzsumw type 2 diabetes, heart block s/p [facility] device, diastolic heart failure, htn, hld, and diabetic polyneuropathy presented to the ED for evaluation a of a right diabetic foot ulcer and cellulitis. The patient has been following with a medical biller coder who has debrided the ulcer and recommended he follow with a chin see Wound Clinic for further management of the nonhealing wound. He had been started on amoxicillin t.i.d. which he completed without improvement in the ulceration and extending erythema. The patient is unsure how long the wound has been present on the plantar surface of the right foot as he has no sensation. He denies any fevers but states he has had chills. On arrival, patient is afebrile but tachycardic to 111. There is a leukocytosis of 17.9. Creatinine 2.18, baseline 1.60. Electrolyte levels within normal limits. Glucose 250. Bilirubin 1.3, AST 39, ALT 40, CRP 17.03, ESR pending. Xray right foot showing soft tissue defect and extensive chronic appearing degenerative changes to midfoot and 1st MTP, cannot exclude osteomyelitis, MRI recommended. In the ED, given empiric zosyn. Review of Systems Review of Systems: General: No fevers, malaise, unintentional weight loss HEENT: No blurred vision, diplopia. No sore throat, nasal congestion, rhinorrhea, sinus pain, ear pain Cardiovascular: No chest pain, palpitations, or leg edema Respiratory: No shortness of breath, wheezing, cough GI: No abdominal pain, nausea, vomiting, diarrhea, constipation, melena, hematochezia : No dysuria, hematuria, increased urinary frequency, decreased urinary output MSK: No myalgia, back pain Neuro: No headaches, weakness, paresthesias Skin: No rashes or lesions. +nonhealing ulcer plantar right foot [facility] Medical History Back pain Decubitus ulcer, heel Diabetes mellitus Heart block History of COVID-19 Hyperlipidemia Hypertension Iron deficiency anemia Ulcer of left heel Urinary retention Family History Brother Testicular cancer Surgical History History of back surgery History of esophagogastroduodenoscopy History of left hip replacement Hx of cataract extraction Hx of colonoscopy Social History Household Members: Spouse Housing: House Do you presently have visiting nurse or other home services: Yes (VNA 2x wk for wound care to left heel) Alcohol intake: never Patient Tobacco Use Status: Tobacco use Unknown Use of substances other than those prescribed or required for medical reasons: No Advance Directives: Yes Advance Directives Information Provided: No Advance Directives on File: No service: No Current occupational status: retired [employer] Allergies Allergy/AdvReac Type Severity Reaction Status Date / Time lisinopril [LISINOPRIL] Allergy Severe ANGIOEDEMA Verified 07/11/22 16:06 Active Medications: Current Medications Vancomycin HCl (Vancomycin/Ns) 2,000 mg in 500 mls @ 250 mls/hr IV ONCE ONE Stop: 07/11/22 22:59 Pharmacy Consult (Consult Rx Perform Med Rec) 1 each MISCELLANE ONCE PRN PRN Reason: Consult order Home Medications Medication Instructions Recorded Confirmed Last Taken Type metoprolol tartrate 25 mg tablet 25 mg PO BID 03/17/20 07/11/22 07/11/22 History simvastatin 40 mg tablet 40 mg PO BEDTIME 03/17/20 07/11/22 07/11/22 History blood sugar diagnostic (OneTouch #10 ea 11/11/20 07/11/22 Unknown History Verio test strips) pantoprazole 20 mg tablet,delayed 20 mg PO DAILY 11/11/20 07/11/22 07/11/22 History release glipizide 2.5 mg tablet, extended 2.5 mg PO DAILY 12/19/20 07/11/22 07/11/22 History release 24 hr cholecalciferol (vitamin D3) 50 50 mcg PO DAILY 07/11/22 07/11/22 07/11/22 History mcg (2,000 unit) tablet dulaglutide 4.5 mg/0.5 mL 4.5 mg subcut WE 07/11/22 07/11/22 07/11/22 History subcutaneous pen injector (Trulicity) empagliflozin 10 mg tablet 10 mg PO DAILY 07/11/22 07/11/22 07/11/22 History (Jardiance) Physical Exam Vital Signs and Narrative: Vital Signs: Last Vital Signs Temp 99.0 F 07/11/22 19:53 Pulse 105 H 07/11/22 19:53 Resp 16 07/11/22 19:53 BP 123/71 07/11/22 19:53 Pulse Ox 98 07/11/22 19:53 O2 Del Method Room Air 07/11/22 19:53 BMI result Body Mass Index 28.8 Constitutional - Awake and Alert, No apparent distress Eyes - PERRLA, EOMI Cardiovascular - S1S2, RRR, No edema. 2+ pedal pulses b/l Respiratory - Normal lung expansion, Normal respiratory effort, No respiratory distress, CTA bilaterally Gastrointestinal - NT / ND; +BS; No rebound or guarding - No CVA tenderness Extremities - no calf tenderness bilaterally, no swelling Skin - Warm/Dry. Stage 4 malodorous ulcer plantar surface right foot with scant purulent drainage with surrounding erythema extending to the dorsum of the foot and anterior tibia Neurological - Alert & oriented x3, 5/5 strength BUE and BLE Psychological - Appropriate affect Results Labs 07/11/22 16:43 07/11/22 16:43 Labs: Laboratory Results - last 24 hr 07/11/22 07/11/22 07/11/22 16:42 16:43 16:43 MCV 91.0 MCH 30.5 MCHC 33.5 RDW 13.2 Plt Count 241 MPV 10.5 Immature Gran % (Auto) 0.6 H Neut % (Auto) 88.9 H Lymph % (Auto) 3.9 L [place] % (Auto) 6.3 Eos % (Auto) 0.1 Baso % (Auto) 0.2 Lymph # (Auto) 0.7 L [place] # (Auto) 1.1 Eos # (Auto) 0.0 Baso # (Auto) 0.0 Abs Immat Gran (auto) 0.10 H Absolute Neuts (auto) 15.9 H Absolute Nucleated RBC 0.000 Nucleated RBC % (auto) 0.0 Anion Gap 21 H Estim Creat Clear Calc 29.7 Estimated GFR 29 Random Glucose 250 H Lactic Acid 1.9 Calcium 9.4 Total Bilirubin 1.3 H AST 39 H ALT 40 Alkaline Phosphatase 106 Total Protein 6.9 Albumin 3.8 COVID-19 (ROM) COVID-19 Clin Com 07/11/22 19:59 MCV MCH MCHC RDW Plt Count MPV Immature Gran % (Auto) Neut % (Auto) Lymph % (Auto) [place] % (Auto) Eos % (Auto) Baso % (Auto) Lymph # (Auto) [place] # (Auto) Eos # (Auto) Baso # (Auto) Abs Immat Gran (auto) Absolute Neuts (auto) Absolute Nucleated RBC Nucleated RBC % (auto) Anion Gap Estim Creat Clear Calc Estimated GFR Random Glucose Lactic Acid Calcium Total Bilirubin AST ALT Alkaline Phosphatase Total Protein Albumin COVID-19 (ROM) Negative COVID-19 Clin Com See Note Assessment and Plan (1) Diabetic foot ulcer: Status: Acute (2) Cellulitis of foot, right: Status: Acute Plan 81-year-old male with history of uncontrolled xox-qxjluno-aspujtcmi type 2 diabetes, heart block s/p [facility] device, diastolic heart failure, htn, hld, and diabetic polyneuropathy admitted for acute cellulitis and nonhealing diabetic ulcer right foot. #Infected chronic non-healing right foot ulcer related to diabetes with acute cellulitis -XR cannot exclude osteomyelitis. MR RLE w/wo contrast ordered to rule out osteomyelitis -IV vanco and cefepime (initiated 07/11) -Leukocytosis 17.9, CRP 17, ESR pending -Apprecaite general surgery input -Follow CBC #Severe sepsis - due to above -Leukocytosis 17.9, tachycardia to 111, DEON. Lactic acid WNL -Abx as above -Continue gentle IVF #Acute kidney injury- prerenal d/t severe sepsis -Creat 2.18, baseline 1.6. BUN 42 -CKD stage 3 at baseline -Continue IVF # pku-qosumkv-gzxhspqdh type 2 diabetes-with hyperglycemia -POC glucose -diabetic diet -Humalog on sliding scale -hold metformin, glipizide. Continue Jardiance #HFpEF -euvolemic appearing -continue Jardiance # hypertension -hold metoprolol in the setting of sepsis, resume as appropriate # HLD -continue statin DVT prophylaxis-heparin Full code Patient requires inpatient stay of at least 2 midnights for management of in fected diabetic foot ulcer with acute cellulitis, cannot exclude osteomyelitis, and severe sepsis requiring IV antibiotics, expert consultation and possible surgical intervention. Time Spent With Patient Time: Total time managing care of this patient today ____ minutes. Quality Stroke Does the patient have a stroke diagnosis?: No VTE Prior VTE?: No VTE Risk Level:: Medical - moderate - high VTE Device Contraindication: Treatment Not Indicated VTE Drug Contraindication: N/A - Med Ordered
--- NOTE | 2022-07-11 20:30 | MHC.EDTECH ---
pt had a turkey sandwich and 2 can diann yusra for dinner .
[2022-07-11 20:38] LABS: C Reactive Protein 17.03 mg/dL (< or = 0.50)
--- NOTE | 2022-07-11 20:39 | PHA.MEDREC ---
Pharmacy Consult ? Medication Reconciliation Pharmacy has completed the medication reconciliation.
[2022-07-11 20:51] LABS: Erythrocyte Sedimentation Rate 71 MM/HR (0-15)
[2022-07-11 20:57] LABS: Glucose, Whole Blood 317 mg/dL (60-115)
[2022-07-11] MEDS: Heparin Sodium,Porcine 5,000 UNIT/ML VIAL 5000 UNIT SUBCUT (21:04)
[2022-07-11] MEDS: Atorvastatin Calcium 20 MG TABLET PO (21:04)
[2022-07-11] MEDS: Docusate Sodium 100 MG CAPSULE PO (21:04)
[2022-07-11] MEDS: Insulin Lispro 100 UNIT/ML 3 ML VIAL SUBCUT (21:04)
[2022-07-11] MEDS: vancomycin/NS 2,000 MG/500 ML PLAST..BAG 250 MG IV (21:05)
--- NOTE | 2022-07-11 21:10 | MHC.CM.PN ---
IMM 07/11. CM met with admitted patient with bed assignment pending. A&Ox4. Independent. Lives with . Drives. Has walker, which he uses at night. Ambulates without difficulty during the day, walker at night with nocturia. Pt has [facility]. Pt also sees urology at [facility] [place]. Had recent bladder biopsy and has appointment on Saturday for results. Moderna x4. 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 HCP/son Adi Guadarrama ([phone]). D/C plan pending MDR's and pending MRI to r/o osteomyelitis. D/C plan: Home, home with VNA or home with VNA/IV antibiotic [place]. will transport home. No referrals yet placed. CM following for discharge planning.
--- NOTE | 2022-07-11 21:25 | PHA.PROG ---
Admission Date/Time: July 11, 2022 20:20 Indication: Cellulitis, diabetic foot Weight in k.451 kg Adjusted body weight in K.8 kg Herman body weight in K.7 kg Obesity Dosing Indication % IBW: 125 % Serum Creatinine - Last 168 Hours 07/11/22 16:43 Creatinine 2.18 H Estimated CrCl and GFR - Last 168 Hours 07/11/22 16:43 Estim Creat Clear Calc 29.7 Estimated GFR 29 Vancomycin Loading Dose: 2000 mg Current Vancomycin Dosing Regimen: 750 mg Q24H Date and Time for next Vancomycin Level to be drawn: 07/13 @ 1900 Pharmacist Comments on Vancomycin Plan: Patient received an adequate load dose in the ED on 07/11 @ 2099. Maintenance dose vancomycin 750 mg Q24H is scheduled to start 07/12 @ 2099. Expected AUC 461 with a trough of 15.8. Due to patient's age and renal function, will get a random vanco level on 07/13 @ 1900 prior to the thrid dose to access for safety Pharmacy will monitor renal function daily Erendira Mix PharmD Vancomycin dosing will take advantage of [employer] as a clinical decision support tool that uses Bayesian modeling to calculate individual patient's pharmacokinetic parameters and forecast the patient's drug concentration time course with the target goal AUC 24 range of 400 - 600 mg/L/hr.
[2022-07-11 23:09] VITALS: BP 128/66; PULSE 79; RESP 16; O2SAT 97
--- NOTE | 2022-07-11 23:35 | PC.NURSE ---
report given to ED overflow RN. pt resting comfortably on stretcher. iv vancomycin running. no current complaints or apparent distress . will CTM
[2022-07-11 23:59] VITALS: BP 144/73; PULSE 82; RESP 17; TEMP 36.3; O2SAT 99
[2022-07-12] MEDS: cefEPime HCl 1 GM in 0.9 % Sodium Chloride 50 ML IV ×2 (00:53→12:16)
[2022-07-12] MEDS: Omeprazole 20 MG CAPSULE.DR PO (05:57)
[2022-07-12 06:11] VITALS: BP 150/76; PULSE 76; RESP 16; TEMP 36.8; O2SAT 99
[2022-07-12 06:51] LABS: MANUAL DIFF FLAG NO
[2022-07-12 06:58] LABS: Basophils Percent Auto 0.3 % (0-2); Eosinophils Absolute Auto 0.1 X10*3/uL (0.0-0.4); Eosinophils Percent Auto 0.7 % (0-4); Hematocrit 39.2 % (42.0-52.0); Imm Gran Abs Auto 0.09 X10*3/uL (0.00-0.03); Imm Gran Pct Auto 0.7 % (0.0-0.4); Lymphocytes Percent Auto 7.2 % (20-40); Mean Corpuscular HGB Conc 33.2 g/dl (31.0-36.0); Mean Corpuscular Hemoglobin 30.4 pg (27.0-33.0); Mean Corpuscular Volume 91.6 fL (80.0-98.0); Mean Platelet Volume 10.5 fL (9.4-12.4); Monocytes Absolute Auto 0.9 X10*3/uL (0.1-1.2); Monocytes Percent Auto 6.7 % (2-11); Neutrophils Absolute Auto 11.6 x10*3/uL (2.0-8.3); Neutrophils Percent Auto 84.4 % (45-73); Platelet Count 209 X10*3/uL (160-400); Red Blood Count 4.28 X10*6/uL (4.60-5.80); Red Cell Distribution Width 13.2 % (11.0-16.0); White Blood Count 13.8 X10*3/uL (4.8-10.8)
[2022-07-12 07:10] LABS: Anion Gap 16 (12-20); Blood Urea Nitrogen 38 mg/dL (9-16); Calcium 8.9 mg/dL (8.4-10.2); Carbon Dioxide 21 mmol/L (22-29); Chloride 108 mmol/L (96-108); Creatinine Clr Calc Pharmacy 33.4; Estimated Glomerular Filt Rate 33; Glucose Random 152 mg/dL (60-115); Potassium 3.9 mmol/L (3.3-5.1); Sodium 141 mmol/L (135-145)
[2022-07-12 07:23] LABS: Glucose, Whole Blood 191 mg/dL (60-115)
[2022-07-12] MEDS: Insulin Lispro 100 UNIT/ML 3 ML VIAL SUBCUT ×4 (07:41→20:34)
[2022-07-12] MEDS: Heparin Sodium,Porcine 5,000 UNIT/ML VIAL 5000 UNIT SUBCUT ×2 (07:41→20:34)
[2022-07-12] MEDS: 0.9 % Sodium Chloride 1,000 ML 80 ML IVCONT ×2 (07:41→21:56)
[2022-07-12] MEDS: Cholecalciferol (Vitamin D3) 25 MCG TABLET 50 MCG PO (07:41)
[2022-07-12] MEDS: Docusate Sodium 100 MG CAPSULE PO (07:42)
--- NOTE | 2022-07-12 08:00 | P.CONGS_ITS ---
History of Present Illness Consult details Consult date: 07/12/22 Narrative: 81M admitted for a nohealing right foot ulcer. He has a long history of DM, and has had a DM foot ulcer on theleft in the past. He says he had noticed an ulcer on his right foot over a month ago. He is uncertain as to how long he has had this as he does not have any sensation to the entire foot. He says he had seen a hand woven carpet and rug mender who had done some debridement and he was eventually referred [facility]. He was sent to the ED by the [facility] yesterday because of cellulitis. He has a hx of CHF and heart block and has a pacemaker in place. Review of Systems Constitutional: Constitutional: Denies chills and Denies fever(s) Cardiovascular: Cardiovascular: Denies chest pain, Reports dyspnea and Reports dyspnea on exertion Respiratory: Respiratory: Denies cough, Reports dyspnea and Reports dyspnea on exertion Gastrointestinal: Gastrointestinal: Denies hematochezia and Denies change in bowel habits Genitourinary: Genitourinary: Reports hematuria and Reports difficulty urinat ing Musculoskeletal: Musculoskeletal: Denies back pain and Denies limited range of motion Neurologic: Denies focal weakness and Denies convulsions Psychiatric: Psychiatric: Denies depression and Denies mood swings PMFSH Past Medical History Medical History Back pain Decubitus ulcer, heel Diabetes mellitus Heart block History of COVID-19 Hyperlipidemia Hypertension Iron deficiency anemia Ulcer of left heel Urinary retention Family History Family History Brother Testicular cancer Surgical History Surgical History History of back surgery History of esophagogastroduodenoscopy History of left hip replacement Hx of cataract extraction Hx of colonoscopy Social History Social History Household Members: Spouse Housing: House Do you presently have visiting nurse or other home services: Yes ([facility] 2x wk for wound care to left heel) Alcohol intake: never Patient Tobacco Use Status: Tobacco use Unknown Use of substances other than those prescribed or required for medical reasons: No Advance Directives: Yes Advance Directives Information Provided: No Advance Directives on File: No service: No Current occupational status: retired Meds Allergies Allergy/AdvReac Type Severity Reaction Status Date / Time lisinopril [LISINOPRIL] Allergy Severe ANGIOEDEMA Verified 07/11/22 16:06 Active Medications: Current Medications Acetaminophen (Acetaminophen 325 Mg Tablet) 650 mg PO Q6H PRN PRN Reason: Pain, Mild (Pain Scale 1-3) Atorvastatin Calcium (Atorvastatin Calcium 20 Mg Tablet) 20 mg PO BEDTIME [facility] Last Admin: 07/11/22 21:04 Dose: 20 mg Docusate Sodium (Docusate Sodium 100 Mg Capsule) 100 mg PO BID [facility] Last Admin: 07/12/22 07:42 Dose: 100 mg Empagliflozin (Empagliflozin 10 Mg Tablet) 10 mg PO DAILY [facility] Glucose (Glucose Gel 15 Gm Gel..Gram.) 15 gm PO Q15M PRN; Protocol PRN Reason: per Hypoglycemia Standing Ord. Heparin Sodium (Porcine) (Heparin Sodium,Porcine 5,000 Unit/Ml Vial) 5,000 unit SUBCUT Q12H [facility] Last Admin: 07/12/22 07:41 Dose: 5,000 unit Cefepime HCl 1 gm/ Sodium (Chloride) 50 mls @ 100 mls/hr IV Q12H [facility] Last Infusion: 07/12/22 05:57 Dose: Infused Dextrose (D10) 250 mls @ 750 mls/hr IV Q15M PRN; Protocol PRN Reason: per Hypoglycemia Standing Ord. Sodium Chloride (Ns) 1,000 mls @ 80 mls/hr IVCONT .[id number] [facility] Last Admin: 07/12/22 07:41 Dose: 80 mls/hr Vancomycin HCl 750 mg/ Sodium (Chloride) 265 mls @ 265 mls/hr IV Q24H [facility] Insulin Human Lispro (Insulin Lispro 100 Unit/Ml 3 Ml Vial) 0 unit SUBCUT QIDACHS [facility]; Protocol Last Admin: 07/12/22 07:41 Dose: 2 unit Omeprazole (Omeprazole 20 Mg Capsule.Dr) 20 mg PO DAILY@0630 [facility] Last Admin: 07/12/22 05:57 Dose: 20 mg Ondansetron HCl (Ondansetron Hcl 4 Mg/2 Ml Vial) 4 mg IVPUSH Q8H PRN PRN Reason: Nausea and Vomiting Pharmacy Consult (Consult Rx Perform Med Rec) 1 each MISCELLANE ONCE PRN PRN Reason: Consult order Pharmacy Consult (Consult Rx Vancomycin Dosing) 1 each MISCELLANE DAILY PRN PRN Reason: Consult order Sodium Chloride (0.9 % Sodium Chloride Flush 3 Ml Syringe) 3 ml IVFLUSH QSHIFT [facility] Last Admin: 07/12/22 07:53 Dose: Not Given Vitamin D (Cholecalciferol (Vitamin D3) 25 Mcg Tablet) 50 mcg PO DAILY [facility] Last Admin: 07/12/22 07:41 Dose: 50 mcg Home Medications Medication Instructions Recorded Confirmed Last Taken Type metoprolol tartrate 25 mg tablet 25 mg PO BID 03/17/20 07/11/22 07/11/22 History simvastatin 40 mg tablet 40 mg PO BEDTIME 03/17/20 07/11/22 07/11/22 History blood sugar diagnostic (OneTouch #10 ea 11/11/20 07/11/22 Unknown History Verio test strips) pantoprazole 20 mg tablet,delayed 20 mg PO DAILY 11/11/20 07/11/22 07/11/22 History release glipizide 2.5 mg tablet, extended 2.5 mg PO DAILY 12/19/20 07/11/22 07/11/22 History release 24 hr cholecalciferol (vitamin D3) 50 50 mcg PO DAILY 07/11/22 07/11/22 07/11/22 History mcg (2,000 unit) tablet dulaglutide 4.5 mg/0.5 mL 4.5 mg subcut WE 07/11/22 07/11/22 07/11/22 History subcutaneous pen injector (Trulicity) empagliflozin 10 mg tablet 10 mg PO DAILY 07/11/22 07/11/22 07/11/22 History (Jardiance) Physical Exam Vital Signs: Vital Signs: Last Vital Signs Temp 98.2 F 07/12/22 06:11 Pulse 76 07/12/22 06:11 Resp 16 07/12/22 06:11 BP 150/76 H 07/12/22 06:11 Pulse Ox 99 07/12/22 06:11 O2 Del Method Room Air 07/12/22 06:11 BMI result Body Mass Index 28.8 Const: General: comfortable and no acute distress Orientation/consciousness: patient oriented x3 Neck: Neck: Yes no lymphadenopathy Resp: Auscultation: clear to auscultation bilaterally Cardio: Rhythm: regular rhythm GI: Palpation (GI): Soft to palpation, nontender and no guarding Neuro: General: patient oriented x3 Extrem: Other: right foot - plantar aspect at the metatarsal head - ulcer, measuring 4x3 cm, with necrotic tissue, invilving skin and subcutanoeus tissue with an area deep to the bone; cellulitis on surrrounding area which appears to haveimproved based on markings from yesterday Results Labs 07/12/22 06:09 07/12/22 06:09 Labs: Abnormal lab results 07/11/22 07/11/22 07/11/22 Range/Units 16:43 16:43 16:43 WBC 17.9 H (4.8-10.8) X10*3/uL RBC 4.56 L (4.60-5.80) X10*6/uL Hgb 13.9 L (14.0-18.0) g/dl Hct 41.5 L (42.0-52.0) % Immature Gran % (Auto) 0.6 H (0.0-0.4) % Neut % (Auto) 88.9 H (45-73) % Lymph % (Auto) 3.9 L (20-40) % Lymph # (Auto) 0.7 L (1.2-4.9) X10*3/uL Abs Immat Gran (auto) 0.10 H (0.00-0.03) X10*3/uL Absolute Neuts (auto) 15.9 H (2.0-8.3) x10*3/uL ESR 71 H (0-15) MM/HR Carbon Dioxide 19 L (22-29) mmol/L Anion Gap 21 H (12-20) BUN 42 H (9-16) mg/dL Creatinine 2.18 H (0.5-1.4) mg/dL POC Glucose (60-115) mg/dL Random Glucose 250 H (60-115) mg/dL Total Bilirubin 1.3 H (0.0-1.0) mg/dL AST 39 H (5-37) U/L C-Reactive Protein 17.03 H (< or = 0.50) mg/dL 07/11/22 07/12/22 07/12/22 Range/Units 20:47 06:09 06:09 WBC 13.8 H (4.8-10.8) X10*3/uL RBC 4.28 L (4.60-5.80) X10*6/uL Hgb 13.0 L (14.0-18.0) g/dl Hct 39.2 L (42.0-52.0) % Immature Gran % (Auto) 0.7 H (0.0-0.4) % Neut % (Auto) 84.4 H (45-73) % Lymph % (Auto) 7.2 L (20-40) % Lymph # (Auto) 1.0 L (1.2-4.9) X10*3/uL Abs Immat Gran (auto) 0.09 H (0.00-0.03) X10*3/uL Absolute Neuts (auto) 11.6 H (2.0-8.3) x10*3/uL ESR (0-15) MM/HR Carbon Dioxide 21 L (22-29) mmol/L Anion Gap (12-20) BUN 38 H (9-16) mg/dL Creatinine 1.94 H (0.5-1.4) mg/dL POC Glucose 317 H (60-115) mg/dL Random Glucose 152 H (60-115) mg/dL Total Bilirubin (0.0-1.0) mg/dL AST (5-37) U/L C-Reactive Protein (< or = 0.50) mg/dL 07/12/22 Range/Units 07:20 WBC (4.8-10.8) X10*3/uL RBC (4.60-5.80) X10*6/uL Hgb (14.0-18.0) g/dl Hct (42.0-52.0) % Immature Gran % (Auto) (0.0-0.4) % Neut % (Auto) (45-73) % Lymph % (Auto) (20-40) % Lymph # (Auto) (1.2-4.9) X10*3/uL Abs Immat Gran (auto) (0.00-0.03) X10*3/uL Absolute Neuts (auto) (2.0-8.3) x10*3/uL ESR (0-15) MM/HR Carbon Dioxide (22-29) mmol/L Anion Gap (12-20) BUN (9-16) mg/dL Creatinine (0.5-1.4) mg/dL POC Glucose 191 H (60-115) mg/dL Random Glucose (60-115) mg/dL Total Bilirubin (0.0-1.0) mg/dL AST (5-37) U/L C-Reactive Protein (< or = 0.50) mg/dL Short CBC 07/11/22 07/12/22 Range/Units 16:43 06:09 WBC 17.9 H 13.8 H (4.8-10.8) X10*3/uL Hgb 13.9 L 13.0 L (14.0-18.0) g/dl Hct 41.5 L 39.2 L (42.0-52.0) % Plt Count 241 209 (160-400) X10*3/uL BMP 07/11/22 07/12/22 16:43 06:09 Sodium 138 141 Potassium 4.5 3.9 Chloride 103 108 Carbon Dioxide 19 L 21 L BUN 42 H 38 H Creatinine 2.18 H 1.94 H Calcium 9.4 8.9 Liver Function 07/11/22 Range/Units 16:43 Total Bilirubin 1.3 H (0.0-1.0) mg/dL AST 39 H (5-37) U/L ALT 40 (0-40) U/L Alkaline Phosphatase 106 (39-117) U/L Albumin 3.8 (3.5-5.0) g/dL All other labs normal. Laboratory Results WBC 13.8 X10*3/uL (4.8-10.8) H 07/12/22 06:09 RBC 4.28 X10*6/uL (4.60-5.80) L 07/12/22 06:09 Hgb 13.0 g/dl (14.0-18.0) L 07/12/22 06:09 Hct 39.2 % (42.0-52.0) L 07/12/22 06:09 MCV 91.6 fL (80.0-98.0) 07/12/22 06:09 MCH 30.4 pg (27.0-33.0) 07/12/22 06:09 MCHC 33.2 g/dl (31.0-36.0) 07/12/22 06:09 RDW 13.2 % (11.0-16.0) 07/12/22 06:09 Plt Count 209 X10*3/uL (160-400) 07/12/22 06:09 MPV 10.5 fL (9.4-12.4) 07/12/22 06:09 Immature Gran % (Auto) 0.7 % (0.0-0.4) H 07/12/22 06:09 Neut % (Auto) 84.4 % (45-73) H 07/12/22 06:09 Lymph % (Auto) 7.2 % (20-40) L 07/12/22 06:09 Roane % (Auto) 6.7 % (2-11) 07/12/22 06:09 Eos % (Auto) 0.7 % (0-4) 07/12/22 06:09 Baso % (Auto) 0.3 % (0-2) 07/12/22 06:09 Lymph # (Auto) 1.0 X10*3/uL (1.2-4.9) L 07/12/22 06:09 Roane # (Auto) 0.9 X10*3/uL (0.1-1.2) 07/12/22 06:09 Eos # (Auto) 0.1 X10*3/uL (0.0-0.4) 07/12/22 06:09 Baso # (Auto) 0.0 X10*3/uL (0.0-0.2) 07/12/22 06:09 Abs Immat Gran (auto) 0.09 X10*3/uL (0.00-0.03) H 07/12/22 06:09 Absolute Neuts (auto) 11.6 x10*3/uL (2.0-8.3) H 07/12/22 06:09 Absolute Nucleated RBC 0.000 X10*3/uL (0.0-0.012) 07/12/22 06:09 Nucleated RBC % (auto) 0.0 /100WBC (0.0-0.2) 07/12/22 06:09 ESR 71 MM/HR (0-15) H 07/11/22 16:43 Sodium 141 mmol/L (135-145) 07/12/22 06:09 Potassium 3.9 mmol/L (3.3-5.1) 07/12/22 06:09 Chloride 108 mmol/L (96-108) 07/12/22 06:09 Carbon Dioxide 21 mmol/L (22-29) L 07/12/22 06:09 Anion Gap 16 (12-20) 07/12/22 06:09 BUN 38 mg/dL (9-16) H 07/12/22 06:09 Creatinine 1.94 mg/dL (0.5-1.4) H 07/12/22 06:09 Estim Creat Clear Calc 33.4 07/12/22 06:09 Estimated GFR 33 07/12/22 06:09 POC Glucose 191 mg/dL (60-115) H 07/12/22 07:20 Random Glucose 152 mg/dL (60-115) H 07/12/22 06:09 Lactic Acid 1.9 mmol/L (0.5-2.0) 07/11/22 16:42 Calcium 8.9 mg/dL (8.4-10.2) 07/12/22 06:09 Total Bilirubin 1.3 mg/dL (0.0-1.0) H 07/11/22 16:43 AST 39 U/L (5-37) H 07/11/22 16:43 ALT 40 U/L (0-40) 07/11/22 16:43 Alkaline Phosphatase 106 U/L (39-117) 07/11/22 16:43 C-Reactive Protein 17.03 mg/dL (< or = 0.50) H 07/11/22 16:43 Total Protein 6.9 g/dL (6.5-8.0) 07/11/22 16:43 Albumin 3.8 g/dL (3.5-5.0) 07/11/22 16:43 COVID-19 (ROM) Negative (Negative) 07/11/22 19:59 COVID-19 Clin Com See Note 07/11/22 19:59 Impressions Foot X-Ray 07/11/22 20:22 IMPRESSION: Soft tissue defect along the plantar aspect of the forefoot in the region of the first MTP joint. Extensive chronic appearing and degenerative changes to the midfoot and first MTP joint. I do not appreciate any definitive acute superimposed fracture or dislocation although evaluation of the first proximal phalanx is limited due to the obliquities of imaging. Unfortunately subtle osteomyelitis would be difficult to exclude with such extensive chronic changes present especially in light of the soft tissue defect. MRI may be more definitive. 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 There is note of necrotic skin and subcutaneous eschar. I therefore proceeded to do sharp excisional debridement at bedside using scissors to remove as much of the nonviable tissue. He did not have sensation to the foot. There is note of exposed bone on one area, likely the metatarsal head. I then applied wet to dry dressings after excisional debridement and wrapped the foot with Leah roll. His CT scan shows this soft tissue defect and he is awaiting an MRI to rule out osteomyelitis. HE has beens tarted on IV abx and the cellulitis appears to have improved compared to yesterday based on the markings placed. I will follow along while he is in the hospital. Time Spent With Patient Time: Total time managing care of this patient today ____ minutes. Procedures Date of Service Date of Service: 07/12/22
--- NOTE | 2022-07-12 08:25 | HE.PHANOTE ---
VANCO DOSING BASED ON SCR DOSE CONTINUED AT 750 QW 24. NEXT TROUGH AT 07/13 @ 1900
[2022-07-12] MEDS: Empagliflozin 10 MG TABLET PO (08:30)
--- NOTE | 2022-07-12 10:21 | PC.NURSE ---
patient alert, oriented x4 with moments of confusion. able to make needs known. calm and cooperative with staff. bed alarm on. call woodson placed within reach
--- NOTE | 2022-07-12 11:36 | P.PNIM_ITS ---
Subjective Subjective Date of Service: 07/12/22 Interval History: resting comfortably, offers no acute complaints, was unable to sleep overnight since in overflow unit ,requesting for regular bed, denies fever, no chills, no nausea, no vomiting, no abdominal pain, or diarrhea, no fevers, no chills ,no acute events overnight. Review of Systems Review of Systems: Yes all other systems are reviewed and are negative Physical Exam Vital Signs: Vital Signs: Last Vital Signs Temp 98.2 F 07/12/22 06:11 Pulse 76 07/12/22 06:11 Resp 16 07/12/22 06:11 BP 150/76 H 07/12/22 06:11 Pulse Ox 99 07/12/22 06:11 O2 Del Method Room Air 07/12/22 06:11 BMI result Body Mass Index 28.8 Const: Other: General awake alert x3, resting comfortably in no acute distress. Neck supple no JVD. CVS regular rate rhythm, Respiratory lungs clear to auscultation, no respiratory distress, no wheeze, no rhonchi. Gastrointestinal abdomen soft, non tender, bowel sounds audible, no guarding , no rigidity. Extremities no LE edema. Neuro nonfocal , moving all 4 extremity speech clear. Right deep plantar ulcer base of right big toe, redness dorsum of right foot extending towards left leg, decreased redness since admission Objective Data Active Medications Acetaminophen (Acetaminophen 325 Mg Tablet) 650 mg PO Q6H PRN PRN Reason: Pain, Mild (Pain Scale 1-3) Atorvastatin Calcium (Atorvastatin Calcium 20 Mg Tablet) 20 mg PO BEDTIME [facility] Last Admin: 07/11/22 21:04 Dose: 20 mg Documented By: [place] Docusate Sodium (Docusate Sodium 100 Mg Capsule) 100 mg PO BID [facility] Last Admin: 07/12/22 07:42 Dose: 100 mg Documented By: BAILEY Empagliflozin (Empagliflozin 10 Mg Tablet) 10 mg PO DAILY [facility] Last Admin: 07/12/22 08:30 Dose: 10 mg Documented By: BAILEY Glucose (Glucose Gel 15 Gm Gel..Gram.) 15 gm PO Q15M PRN; Protocol PRN Reason: per Hypoglycemia Standing Ord. Heparin Sodium (Porcine) (Heparin Sodium,Porcine 5,000 Unit/Ml Vial) 5,000 unit SUBCUT Q12H [facility] Last Admin: 07/12/22 07:41 Dose: 5,000 unit Documented By: BAILEY Cefepime HCl 1 gm/ Sodium (Chloride) 50 mls @ 100 mls/hr IV Q12H [facility] Last Infusion: 07/12/22 05:57 Dose: 0 mls/hr Documented By: KENNETH Dextrose (D10) 250 mls @ 750 mls/hr IV Q15M PRN; Protocol PRN Reason: per Hypoglycemia Standing Ord. Sodium Chloride (Ns) 1,000 mls @ 80 mls/hr IVCONT .[id number] [facility] Last Admin: 07/12/22 07:41 Dose: 80 mls/hr Documented By: BAILEY Vancomycin HCl 750 mg/ Sodium (Chloride) 265 mls @ 265 mls/hr IV Q24H [facility] Insulin Human Lispro (Insulin Lispro 100 Unit/Ml 3 Ml Vial) 0 unit SUBCUT QIDACHS [facility]; Protocol Last Admin: 07/12/22 07:41 Dose: 2 unit Documented By: BAILEY Omeprazole (Omeprazole 20 Mg Capsule.Dr) 20 mg PO DAILY@0630 [facility] Last Admin: 07/12/22 05:57 Dose: 20 mg Documented By: KENNETH Ondansetron HCl (Ondansetron Hcl 4 Mg/2 Ml Vial) 4 mg IVPUSH Q8H PRN PRN Reason: Nausea and Vomiting Pharmacy Consult (Consult Rx Perform Med Rec) 1 each MISCELLANE ONCE PRN PRN Reason: Consult order Pharmacy Consult (Consult Rx Vancomycin Dosing) 1 each MISCELLANE DAILY PRN PRN Reason: Consult order Sodium Chloride (0.9 % Sodium Chloride Flush 3 Ml Syringe) 3 ml IVFLUSH QSHIFT [facility] Last Admin: 07/12/22 07:53 Dose: Not Given Documented By: BAILEY Non-Admin Reason: IV Running Vitamin D (Cholecalciferol (Vitamin D3) 25 Mcg Tablet) 50 mcg PO DAILY [facility] Last Admin: 07/12/22 07:41 Dose: 50 mcg Documented By: BAILEY Labs 07/12/22 06:09 07/12/22 06:09 Labs: Laboratory Results - last 24 hr 07/11/22 07/11/22 07/11/22 16:42 16:43 16:43 MCV 91.0 MCH 30.5 MCHC 33.5 RDW 13.2 Plt Count 241 MPV 10.5 Immature Gran % (Auto) 0.6 H Neut % (Auto) 88.9 H Lymph % (Auto) 3.9 L Coal % (Auto) 6.3 Eos % (Auto) 0.1 Baso % (Auto) 0.2 Lymph # (Auto) 0.7 L Coal # (Auto) 1.1 Eos # (Auto) 0.0 Baso # (Auto) 0.0 Abs Immat Gran (auto) 0.10 H Absolute Neuts (auto) 15.9 H Absolute Nucleated RBC 0.000 Nucleated RBC % (auto) 0.0 ESR Anion Gap 21 H Estim Creat Clear Calc 29.7 Estimated GFR 29 POC Glucose Random Glucose 250 H Lactic Acid 1.9 Calcium 9.4 Total Bilirubin 1.3 H AST 39 H ALT 40 Alkaline Phosphatase 106 C-Reactive Protein 17.03 H Total Protein 6.9 Albumin 3.8 COVID-19 (ROM) COVID-reBounces 07/11/22 07/11/22 07/11/22 16:43 19:59 20:47 MCV MCH MCHC RDW Plt Count MPV Immature Gran % (Auto) Neut % (Auto) Lymph % (Auto) Coal % (Auto) Eos % (Auto) Baso % (Auto) Lymph # (Auto) Coal # (Auto) Eos # (Auto) Baso # (Auto) Abs Immat Gran (auto) Absolute Neuts (auto) Absolute Nucleated RBC Nucleated RBC % (auto) ESR 71 H Anion Gap Estim Creat Clear Calc Estimated GFR POC Glucose 317 H Random Glucose Lactic Acid Calcium Total Bilirubin AST ALT Alkaline Phosphatase C-Reactive Protein Total Protein Albumin COVID-19 (ROM) Negative COVID-19 Clin Com See Note 07/12/22 07/12/22 07/12/22 06:09 06:09 07:20 MCV 91.6 MCH 30.4 MCHC 33.2 RDW 13.2 Plt Count 209 MPV 10.5 Immature Gran % (Auto) 0.7 H Neut % (Auto) 84.4 H Lymph % (Auto) 7.2 L Coal % (Auto) 6.7 Eos % (Auto) 0.7 Baso % (Auto) 0.3 Lymph # (Auto) 1.0 L Coal # (Auto) 0.9 Eos # (Auto) 0.1 Baso # (Auto) 0.0 Abs Immat Gran (auto) 0.09 H Absolute Neuts (auto) 11.6 H Absolute Nucleated RBC 0.000 Nucleated RBC % (auto) 0.0 ESR Anion Gap 16 Estim Creat Clear Calc 33.4 Estimated GFR 33 POC Glucose 191 H Random Glucose 152 H Lactic Acid Calcium 8.9 Total Bilirubin AST ALT Alkaline Phosphatase C-Reactive Protein Total Protein Albumin COVID-19 (ROM) COVID-19 Clin Com Microbiology Microbiology Results: Microbiology 07/11/22 20:53 Gram Stain - Final Foot - Right Routine Culture - Preliminary Culture in progress. Assessment and Plan (1) Diabetic foot ulcer: Status: Acute (2) Cellulitis of foot, right: Status: Acute Plan 81-year-old male with history of uncontrolled [id number] type 2 diabetes, heart block s/p [facility] [facility] device, diastolic heart failure, htn, hld, and diabetic polyneuropathy admitted for acute cellulitis and nonhealing diabetic ulcer right foot. #Infected chronic non-healing right foot ulcer related to diabetes with acute cellulitis no pain, no fevers, less redness compared to yesterday -XR foot did not exclude osteomyelitis. MR RLE w/wo contrast ordered to rule out osteomyelitis -cont. IV vanco and cefepime (initiated 07/11) -WBC trending down, CRP 17, ESR 71 - seen by Dr. Da Silva underwent sharp excisional debridement at bedside, wet to dry dressing applied follow MRI report renal function and electrolytes. #Severe sepsis - due to above -Leukocytosis 17.9, tachycardia to 111, DEON. Lactic acid WNL -Abx as above , #Acute kidney injury- prerenal d/t severe sepsis -Creat 2.18, baseline 1.6. BUN 42, creatinine improved to 1.9 this morning -CKD stage 3 at baseline -Continue IVF # eme-ladkisg-igcjxdonh type 2 diabetes-with hyperglycemia - blood sugars around 200, continue POC glucose,diabetic diet, Humalog on sliding scale - hold metformin, glipizide.? Continue Jardiance #HFpEF no acute exacerbation continue Jardiance # hypertension continue metoprolol # HLD -continue statin DVT prophylaxis-heparin Full code patient will need continued inpatient hospitalization for management of infected diabetic foot ulcer with acute cellulitis, cannot exclude osteomyelitis, and severe sepsis requiring IV antibiotics, expert consultation and possible surgical intervention. Time Spent With Patient Time: Total time managing care of this patient today ____ minutes. Quality Stroke Does the patient have a stroke diagnosis?: No VTE Prior VTE?: No VTE Risk Level:: Medical - moderate - high VTE Device Contraindication: Treatment Not Indicated VTE Drug Contraindication: N/A - Med Ordered
[2022-07-12 11:44] LABS: Glucose, Whole Blood 231 mg/dL (60-115)
[2022-07-12 11:53] VITALS: BMI 28.8
[2022-07-12 12:00] VITALS: BP 140/74; PULSE 96; RESP 20; TEMP 36.3; O2SAT 100
[2022-07-12] MEDS: 0.9 % Sodium Chloride Flush 3 ML SYRINGE IVFLUSH (12:17)
[2022-07-12 15:22] LABS: Glucose, Whole Blood 188 mg/dL (60-115)
[2022-07-12 15:37] VITALS: BP 123/81; PULSE 101; RESP 18; TEMP 36.7; O2SAT 97
[2022-07-12 19:22] VITALS: BP 125/73; PULSE 106; RESP 18; TEMP 37.1; O2SAT 98
[2022-07-12 20:20] LABS: Glucose, Whole Blood 227 mg/dL (60-115)
[2022-07-12] MEDS: Atorvastatin Calcium 20 MG TABLET PO (20:34)
[2022-07-12] MEDS: vancomycin HCL 750 MG in 0.9 % Sodium Chloride 250 ML 265 MG IV (20:48)
[2022-07-12 23:41] VITALS: BP 116/73; PULSE 98; RESP 18; TEMP 37.3; O2SAT 95
[2022-07-13] MEDS: 0.9 % Sodium Chloride Flush 3 ML SYRINGE IVFLUSH ×2 (00:26→17:01)
[2022-07-13] MEDS: cefEPime HCl 1 GM in 0.9 % Sodium Chloride 50 ML IV ×2 (00:26→11:35)
[2022-07-13 04:00] VITALS: BP 126/72; PULSE 97; RESP 18; TEMP 37.7; O2SAT 96
[2022-07-13 05:10] LABS: Hematocrit 38.1 % (42.0-52.0); Hemoglobin 12.7 g/dl (14.0-18.0); Mean Corpuscular HGB Conc 33.3 g/dl (31.0-36.0); Mean Corpuscular Hemoglobin 30.8 pg (27.0-33.0); Mean Corpuscular Volume 92.5 fL (80.0-98.0); Mean Platelet Volume 10.5 fL (9.4-12.4); Platelet Count 230 X10*3/uL (160-400); Red Blood Count 4.12 X10*6/uL (4.60-5.80); Red Cell Distribution Width 13.3 % (11.0-16.0); White Blood Count 11.6 X10*3/uL (4.8-10.8)
[2022-07-13 05:29] LABS: Creatinine Clr Calc Pharmacy 37.7; Estimated Glomerular Filt Rate 38
[2022-07-13] MEDS: Omeprazole 20 MG CAPSULE.DR PO (06:32)
[2022-07-13 07:23] LABS: Glucose, Whole Blood 155 mg/dL (60-115)
[2022-07-13 07:41] VITALS: BP 122/64; PULSE 90; RESP 20; TEMP 37.2; O2SAT 96
[2022-07-13] MEDS: Cholecalciferol (Vitamin D3) 25 MCG TABLET 50 MCG PO (08:30)
[2022-07-13] MEDS: Heparin Sodium,Porcine 5,000 UNIT/ML VIAL 5000 UNIT SUBCUT ×2 (08:30→20:49)
[2022-07-13] MEDS: Empagliflozin 10 MG TABLET PO (08:30)
[2022-07-13] MEDS: Insulin Lispro 100 UNIT/ML 3 ML VIAL SUBCUT ×4 (08:31→20:48)
[2022-07-13 11:27] LABS: Glucose, Whole Blood 228 mg/dL (60-115)
[2022-07-13 11:31] VITALS: BP 101/65; PULSE 94; RESP 20; TEMP 36.7; O2SAT 99
--- NOTE | 2022-07-13 12:59 | HO.PM.IMPN ---
Subjective Subjective Date of Service: 07/13/22 Interval History: Offers no acute complaints of pain, no nausea, no vomiting ,tolerating diet, no diarrhea no fevers, no chills no other acute events overnight tolerating IV antibiotics. Review of Systems Review of Systems: Yes all other systems are reviewed and are negative Physical Exam Vital Signs: Vital Signs: Last Vital Signs Temp 98.0 F 07/13/22 11:31 Pulse 94 07/13/22 11:31 Resp 20 07/13/22 11:31 BP 101/65 07/13/22 11:31 Pulse Ox 99 07/13/22 11:31 O2 Del Method Room Air 07/13/22 11:31 BMI result Body Mass Index 28.8 Const: Other: General? awake yusra rt x3, resting com fortably in no acu te distress.? Neck supple no JVD. CV S? regular rate rh ythm, Respiratory lungs clear to aus cultation, no resp iratory distress, no wheeze, no rhon chi. Gastrointesti nal abdomen soft, non tender, bowel sounds audible, no guarding , no rig idity. Extremities no LE edema. Neur o nonfocal , movin g all 4 extremity speech clear. Righ t? deep plantar ul cer base of right big toe, redness d orsum of right venkata t extending toward s left leg, decrea sed redness since admission Objective Data Active Medications Acetaminophen (Acetaminophen 325 Mg Tablet) 650 mg PO Q6H PRN PRN Reason: Pain, Mild (Pain Scale 1-3) Atorvastatin Calcium (Atorvastatin Calcium 20 Mg Tablet) 20 mg PO BEDTIME [facility] Last Admin: 07/12/22 20:34 Dose: 20 mg Documented By: PHILIPPE Docusate Sodium (Docusate Sodium 100 Mg Capsule) 100 mg PO BID [facility] Last Admin: 07/13/22 08:34 Dose: Not Given Documented By: SB Non-Admin Reason: Patient Refused Empagliflozin (Empagliflozin 10 Mg Tablet) 10 mg PO DAILY [facility] Last Admin: 07/13/22 08:30 Dose: 10 mg Documented By: SB Glucose (Glucose Gel 15 Gm Gel..Gram.) 15 gm PO Q15M PRN; Protocol PRN Reason: per Hypoglycemia Standing Ord. Heparin Sodium (Porcine) (Heparin Sodium,Porcine 5,000 Unit/Ml Vial) 5,000 unit SUBCUT Q12H [facility] Last Admin: 07/13/22 08:30 Dose: 5,000 unit Documented By: SB Cefepime HCl 1 gm/ Sodium (Chloride) 50 mls @ 100 mls/hr IV Q12H [facility] Last Infusion: 07/13/22 12:13 Dose: 0 mls/hr Documented By: SB Dextrose (D10) 250 mls @ 750 mls/hr IV Q15M PRN; Protocol PRN Reason: per Hypoglycemia Standing Ord. Vancomycin HCl 750 mg/ Sodium (Chloride) 265 mls @ 265 mls/hr IV Q24H [facility] Last Infusion: 07/12/22 21:57 Dose: 0 mls/hr Documented By: PHILIPPE Insulin Human Lispro (Insulin Lispro 100 Unit/Ml 3 Ml Vial) 0 unit SUBCUT QIDACHS [facility]; Protocol Last Admin: 07/13/22 11:35 Dose: 4 unit Documented By: SB Omeprazole (Omeprazole 20 Mg Capsule.) 20 mg PO DAILY@0630 [facility] Last Admin: 07/13/22 06:32 Dose: 20 mg Documented By: OMAR Ondansetron HCl (Ondansetron Hcl 4 Mg/2 Ml Vial) 4 mg IVPUSH Q8H PRN PRN Reason: Nausea and Vomiting Pharmacy Consult (Consult Rx Perform Med Rec) 1 each MISCELLANE ONCE PRN PRN Reason: Consult order Pharmacy Consult (Consult Rx Vancomycin Dosing) 1 each MISCELLANE DAILY PRN PRN Reason: Consult order Sodium Chloride (0.9 % Sodium Chloride Flush 3 Ml Syringe) 3 ml IVFLUSH QSHIFT [facility] Last Admin: 07/13/22 08:31 Dose: Not Given Documented By: SB Non-Admin Reason: IV Running Vitamin D (Cholecalciferol (Vitamin D3) 25 Mcg Tablet) 50 mcg PO DAILY [facility] Last Admin: 07/13/22 08:30 Dose: 50 mcg Documented By: SB Labs 07/13/22 05:00 07/13/22 05:00 Labs: Laboratory Results - last 24 hr 07/12/22 07/12/22 07/13/22 15:17 19:34 05:00 MCV 92.5 MCH 30.8 MCHC 33.3 RDW 13.3 Plt Count 230 MPV 10.5 Absolute Nucleated RBC 0.000 Nucleated RBC % (auto) 0.0 Estim Creat Clear Calc Estimated GFR POC Glucose 188 H 227 H 07/13/22 07/13/22 07/13/22 05:00 07:17 11:17 MCV MCH MCHC RDW Plt Count MPV Absolute Nucleated RBC Nucleated RBC % (auto) Estim Creat Clear Calc 37.7 Estimated GFR 38 POC Glucose 155 H 228 H Microbiology Microbiology Results: Microbiology 07/11/22 16:43 Blood Culture - Preliminary Blood - Venous No growth after 24 hours. 07/11/22 16:43 Blood Culture - Preliminary Blood - Venous No growth after 24 hours. 07/11/22 20:53 Gram Stain - Final Foot - Right Routine Culture - Preliminary Culture in progress. Assessment and Plan (1) Diabetic foot ulcer: Status: Acute (2) Cellulitis of foot, right: Status: Acute Plan 81-year-old male with history of uncontrolled [id number]-xquimqbpz type 2 diabetes, heart block s/p [facility] [facility] device, diastolic heart failure, htn, hld, and diabetic polyneuropathy admitted for acute cellulitis and nonhealing diabetic ulcer right foot. #Infected chronic non-healing right foot ulcer related to diabetes with acute cellulitis no pain, no fevers, redness gradually improving -XR foot did not exclude osteomyelitis. -cont. IV vanco and cefepime (initiated 07/11) -WBC continue to trend down, CRP 17, ESR 71, will follow CV are P - seen by Dr. Da Silva underwent sharp excisional debridement at bedside, wet to dry dressing applied MRI cannot be done on the patient since he has a pacemaker and the repeat abscess that needed for this scan cannot be here till Saturday therefore will DC MRI and obtain CT foot without contrast Consult ID. #Severe sepsis - due to above -Leukocytosis 17.9, tachycardia to 111, DEON. Lactic acid WNL, WBC trending down no further bouts of tachycardia -Abx as above , #Acute kidney injury- prerenal d/t severe sepsis -Creat 2.18, baseline 1.6. BUN 42, creatinine improved to 1.7 , close to baseline DC IV fluids -CKD stage 3 at baseline # ixr-msbxzaq-wbxpoebik type 2 diabetes-with hyperglycemia - blood sugars around 200, continue POC glucose,diabetic diet, Humalog sliding scale, will increase sliding scale insulin - hold metformin, glipizide.? Continue Jardiance #HFpEF no acute exacerbation continue Jardiance # hypertension continue metoprolol # HLD -continue statin DVT prophylaxis-heparin Full code patient will need continued inpatient hospitalization for management of infected diabetic foot ulcer with acute cellulitis, cannot exclude osteomyelitis, and severe sepsis requiring IV antibiotics, expert consultation and possible surgical intervention. Time Spent With Patient Time: Total time managing care of this patient today ____ minutes. Quality Stroke Does the patient have a stroke diagnosis?: No VTE Prior VTE?: No VTE Risk Level:: Medical - moderate - high VTE Device Contraindication: Treatment Not Indicated VTE Drug Contraindication: N/A - Med Ordered
--- NOTE | 2022-07-13 13:14 | PM.PNGS ---
Subjective Subjective Date of Service: 07/13/22 <Pippa Almonte PA-C - Last Filed: 07/13/22 13:19> 07/13/22 <Alexander Da Silva MD - Last Filed: 07/13/22 13:21> Interval history: Feels ok. Denies right foot pain. <Pippa Almonte PA-C - Last Filed: 07/13/22 13:19> Physical Exam Vital Signs: Vital Signs: Last Vital Signs Temp 98.0 F 07/13/22 11:31 Pulse 94 07/13/22 11:31 Resp 20 07/13/22 11:31 BP 101/65 07/13/22 11:31 Pulse Ox 99 07/13/22 11:31 O2 Del Method Room Air 07/13/22 11:31 BMI result Body Mass Index 28.8 <Pippa Almonte PA-C - Last Filed: 07/13/22 13:19> Const: General: comfortable, no acute distress and alert <Pippa Almonte PA-C - Last Filed: 07/13/22 13:19> Orientation/consciousness: patient oriented x3 <Pippa Almonte PA-C - Last Filed: 07/13/22 13:19> Resp: Effort & Inspection: normal respiratory effort <Pippa Almonte PA-C - Last Filed: 07/13/22 13:19> Skin: General skin exam: no rashes or lesions noted <Pippa Almonte PA-C - Last Filed: 07/13/22 13:19> Neuro: General: patient oriented x3 and moves all extremities <Pippa Almonte PA-C - Last Filed: 07/13/22 13:19> Extrem: Other: right foot - ulcer of plantar aspect at the metatarsal head, no further necrotic tissue noted, surrounding erythema resolved <CHRIS Velasquez Last Filed: 07/13/22 13:19> Objective Data Active Medications Acetaminophen (Acetaminophen 325 Mg Tablet) 650 mg PO Q6H PRN PRN Reason: Pain, Mild (Pain Scale 1-3) Atorvastatin Calcium (Atorvastatin Calcium 20 Mg Tablet) 20 mg PO BEDTIME [facility] Last Admin: 07/12/22 20:34 Dose: 20 mg Documented By: PHILIPPE Docusate Sodium (Docusate Sodium 100 Mg Capsule) 100 mg PO BID [facility] Last Admin: 07/13/22 08:34 Dose: Not Given Documented By: SB Non-Admin Reason: Patient Refused Empagliflozin (Empagliflozin 10 Mg Tablet) 10 mg PO DAILY [facility] Last Admin: 07/13/22 08:30 Dose: 10 mg Documented By: SB Glucose (Glucose Gel 15 Gm Gel..Gram.) 15 gm PO Q15M PRN; Protocol PRN Reason: per Hypoglycemia Standing Ord. Heparin Sodium (Porcine) (Heparin Sodium,Porcine 5,000 Unit/Ml Vial) 5,000 unit SUBCUT Q12H [facility] Last Admin: 07/13/22 08:30 Dose: 5,000 unit Documented By: SB Cefepime HCl 1 gm/ Sodium (Chloride) 50 mls @ 100 mls/hr IV Q12H [facility] Last Infusion: 07/13/22 12:13 Dose: 0 mls/hr Documented By: SB Dextrose (D10) 250 mls @ 750 mls/hr IV Q15M PRN; Protocol PRN Reason: per Hypoglycemia Standing Ord. Vancomycin HCl 750 mg/ Sodium (Chloride) 265 mls @ 265 mls/hr IV Q24H [facility] Last Infusion: 07/12/22 21:57 Dose: 0 mls/hr Documented By: PHILIPPE Insulin Human Lispro (Insulin Lispro 100 Unit/Ml 3 Ml Vial) 0 unit SUBCUT QIDACHS [facility]; Protocol Last Admin: 07/13/22 11:35 Dose: 4 unit Documented By: SB Omeprazole (Omeprazole 20 Mg Capsule.) 20 mg PO DAILY@0630 [facility] Last Admin: 07/13/22 06:32 Dose: 20 mg Documented By: OMAR Ondansetron HCl (Ondansetron Hcl 4 Mg/2 Ml Vial) 4 mg IVPUSH Q8H PRN PRN Reason: Nausea and Vomiting Pharmacy Consult (Consult Rx Perform Med Rec) 1 each MISCELLANE ONCE PRN PRN Reason: Consult order Pharmacy Consult (Consult Rx Vancomycin Dosing) 1 each MISCELLANE DAILY PRN PRN Reason: Consult order Sodium Chloride (0.9 % Sodium Chloride Flush 3 Ml Syringe) 3 ml IVFLUSH QSHIFT [facility] Last Admin: 07/13/22 08:31 Dose: Not Given Documented By: SB Non-Admin Reason: IV Running Vitamin D (Cholecalciferol (Vitamin D3) 25 Mcg Tablet) 50 mcg PO DAILY [facility] Last Admin: 07/13/22 08:30 Dose: 50 mcg Documented By: SB <Pippa Almonte PA-C - Last Filed: 07/13/22 13:19> Labs CBC & Chem 7: 07/13/22 05:00 07/13/22 05:00 <Pippa Almonte PA-C - Last Filed: 07/13/22 13:19> Labs: Laboratory Results - last 24 hr 07/12/22 07/12/22 07/13/22 15:17 19:34 05:00 MCV 92.5 MCH 30.8 MCHC 33.3 RDW 13.3 Plt Count 230 MPV 10.5 Absolute Nucleated RBC 0.000 Nucleated RBC % (auto) 0.0 Estim Creat Clear Calc Estimated GFR POC Glucose 188 H 227 H 07/13/22 07/13/22 07/13/22 05:00 07:17 11:17 MCV MCH MCHC RDW Plt Count MPV Absolute Nucleated RBC Nucleated RBC % (auto) Estim Creat Clear Calc 37.7 Estimated GFR 38 POC Glucose 155 H 228 H <Pippa Almonte PA-C - Last Filed: 07/13/22 13:19> Microbiology Microbiology Results: Microbiology 07/11/22 16:43 Blood Culture - Preliminary Blood - Venous No growth after 24 hours. 07/11/22 16:43 Blood Culture - Preliminary Blood - Venous No growth after 24 hours. 07/11/22 20:53 Gram Stain - Final Foot - Right Routine Culture - Preliminary Culture in progress. <Pippa Almonte PA-C - Last Filed: 07/13/22 13:19> Procedures Date of Service Date of Service: 07/13/22 <Pippa Almonte PA-C - Last Filed: 07/13/22 13:19> Progress Note: A&P Assessment and plan (1) Diabetic foot ulcer: Status: Acute <Pippa Almonte PA-C - Last Filed: 07/13/22 13:19> Assessment and Plan: dressings changed ulcer much graffiti cleaner, no necrotic tissue cellulitis nearly resolved ok to do silver alginate dressings once a day no weight bearing on forefoot ongoing workup for ? osteomyelitis <Alexander Da Silva MD - Last Filed: 07/13/22 13:21> Assessment and Plan: 81 year old male with diabetic foot ulcer and cellulitis, required debridement at bedside yesterday. Wound is improved this morning and cellulitis resolving. Continue wet to dry dressings followed by fluffs and kerlix wrap. Cont IV abx. No further debridement needed currently. Awaiting MRI. <Pippa Almonte PA-C - Last Filed: 07/13/22 13:19> Time Spent With Patient Time: Total time managing care of this patient today ____ minutes. <Pippa Almonte PA-C - Last Filed: 07/13/22 13:19> Quality Stroke Does the patient have a stroke diagnosis?: No <Pippa Almonte PA-C - Last Filed: 07/13/22 13:19> VTE Prior VTE?: No <Pippa Almonte PA-C - Last Filed: 07/13/22 13:19> VTE Risk Level:: Medical - moderate - high <Pippa Almonte PA-C - Last Filed: 07/13/22 13:19> VTE Device Contraindication: Treatment Not Indicated <Pippa Almonte PA-C - Last Filed: 07/13/22 13:19> VTE Drug Contraindication: N/A - Med Ordered <Pippa Almonte PA-C - Last Filed: 07/13/22 13:19>
[2022-07-13 15:14] VITALS: BP 146/72; PULSE 103; RESP 17; TEMP 36.6; O2SAT 99
[2022-07-13 15:49] LABS: Glucose, Whole Blood 244 mg/dL (60-115)
--- NOTE | 2022-07-13 16:08 | P.CNID_ITS ---
History of Present Illness Data of Consult Service Date: 07/13/22 Requesting physician: Juany Nation Primary Care Provider: RADHA Bonilla HPI Reason for consult: diabetic foot infection He presents with right foot wound and discharge malodorous for a month. He has local wound shows staph aureus and enterococcus. He has leukocytosis. He had gone to wound care on 07/11 and told to come to hospital. He had purulent drainage from area. He has HTN,DM and heart block [facility] valve XRay unremarkable. He had been on Amoxicillin tid before admission. Review of Systems Review of Systems: Yes all other systems are reviewed and are negative PMFSH Past Medical History Medical History Back pain Decubitus ulcer, heel Diabetes mellitus Heart block History of COVID-19 Hyperlipidemia Hypertension Iron deficiency anemia Ulcer of left heel Urinary retention Family History Family History Brother Testicular cancer Family history: reviewed and not pertinent Surgical History Surgical History History of back surgery History of esophagogastroduodenoscopy History of left hip replacement Hx of cataract extraction Hx of colonoscopy Social History Social History Household Members: Spouse Household Members Other:: 2 Housing: House Do you presently have visiting nurse or other home services: No Alcohol intake: never Patient Tobacco Use Status: Former Tobacco user Tobacco use type: Cigarette Advance Directives Date on File: 07/12/22 service: No Current occupational status: retired Meds Allergies Allergy/AdvReac Type Severity Reaction Status Date / Time lisinopril [LISINOPRIL] Allergy Severe ANGIOEDEMA Verified 07/11/22 16:06 Active Medications: Current Medications Acetaminophen (Acetaminophen 325 Mg Tablet) 650 mg PO Q6H PRN PRN Reason: Pain, Mild (Pain Scale 1-3) Atorvastatin Calcium (Atorvastatin Calcium 20 Mg Tablet) 20 mg PO BEDTIME [facility] Last Admin: 07/12/22 20:34 Dose: 20 mg Docusate Sodium (Docusate Sodium 100 Mg Capsule) 100 mg PO BID [facility] Last Admin: 04/28/23 08:34 Dose: Not Given Empagliflozin (Empagliflozin 10 Mg Tablet) 10 mg PO DAILY [facility] Last Admin: 07/13/22 08:30 Dose: 10 mg Glucose (Glucose Gel 15 Gm Gel..Gram.) 15 gm PO Q15M PRN; Protocol PRN Reason: per Hypoglycemia Standing Ord. Heparin Sodium (Porcine) (Heparin Sodium,Porcine 5,000 Unit/Ml Vial) 5,000 unit SUBCUT Q12H [facility] Last Admin: 07/13/22 08:30 Dose: 5,000 unit Cefepime HCl 1 gm/ Sodium (Chloride) 50 mls @ 100 mls/hr IV Q12H [facility] Last Infusion: 07/13/22 12:13 Dose: Infused Dextrose (D10) 250 mls @ 750 mls/hr IV Q15M PRN; Protocol PRN Reason: per Hypoglycemia Standing Ord. Vancomycin HCl 750 mg/ Sodium (Chloride) 265 mls @ 265 mls/hr IV Q24H [facility] Last Infusion: 07/12/22 21:57 Dose: Infused Insulin Human Lispro (Insulin Lispro 100 Unit/Ml 3 Ml Vial) 0 unit SUBCUT QIDACHS [facility]; Protocol Last Admin: 07/13/22 11:35 Dose: 4 unit Omeprazole (Omeprazole 20 Mg Capsule.Dr) 20 mg PO DAILY@0630 [facility] Last Admin: 07/13/22 06:32 Dose: 20 mg Ondansetron HCl (Ondansetron Hcl 4 Mg/2 Ml Vial) 4 mg IVPUSH Q8H PRN PRN Reason: Nausea and Vomiting Pharmacy Consult (Consult Rx Perform Med Rec) 1 each MISCELLANE ONCE PRN PRN Reason: Consult order Pharmacy Consult (Consult Rx Vancomycin Dosing) 1 each MISCELLANE DAILY PRN PRN Reason: Consult order Sodium Chloride (0.9 % Sodium Chloride Flush 3 Ml Syringe) 3 ml IVFLUSH QSHIFT [facility] Last Admin: 07/13/22 08:31 Dose: Not Given Vitamin D (Cholecalciferol (Vitamin D3) 25 Mcg Tablet) 50 mcg PO DAILY [facility] Last Admin: 07/13/22 08:30 Dose: 50 mcg Home Medications Medication Instructions Recorded Confirmed Last Taken Type metoprolol tartrate 25 mg tablet 25 mg PO BID 03/17/20 07/11/22 07/11/22 History simvastatin 40 mg tablet 40 mg PO BEDTIME 03/17/20 07/11/2223 History blood sugar diagnostic (OneTouch #10 ea 11/11/20 07/11/22 Unknown History Verio test strips) pantoprazole 20 mg tablet,delayed 20 mg PO DAILY 11/11/20 07/11/22 07/11/22 History release glipizide 2.5 mg tablet, extended 2.5 mg PO DAILY 12/19/20 07/11/22 07/11/22 History release 24 hr cholecalciferol (vitamin D3) 50 50 mcg PO DAILY 07/11/22 07/11/22 07/11/22 History mcg (2,000 unit) tablet dulaglutide 4.5 mg/0.5 mL 4.5 mg subcut WE 07/11/22 07/11/22 07/11/22 History subcutaneous pen injector (Trulicity) empagliflozin 10 mg tablet 10 mg PO DAILY 07/11/22 07/11/22 07/11/22 History (Jardiance) Physical Exam Vital Signs: Vital Signs: Last Vital Signs Temp 97.9 F 07/13/22 15:14 Pulse 103 H 07/13/22 15:14 Resp 17 07/13/22 15:14 BP 146/72 H 07/13/22 15:14 Pulse Ox 99 07/13/22 15:14 O2 Del Method Room Air 07/13/22 15:14 BMI result Body Mass Index 28.8 Const: General: cooperative HEENT: Head: Yes normal to inspection Face and sinus: Yes normal facial exam Mouth: Normal oral and palatal mucosa present Teeth and gingiva: dentition normal Eyes: General: appearance normal, both eyes and all related structures Pupils: Equal, round and reactive pupils present Resp: Effort & Inspection: normal respiratory effort Cardio: Rate: regular rate Rhythm: regular rhythm GI: Palpation (GI): Soft to palpation and nontender : General: Yes no CVA tenderness Back/Spine/Pelvis: Back: no CVA tenderness Skin: General skin exam: no rashes or lesions noted Neuro: General: moves all extremities Cranial nerves: Yes Equal, round and reactive pupils present Extrem: Other: bilateral neuropathy, wrapped foot Psych: Appearance: grossly normal Results Labs 07/13/22 05:00 07/13/22 05:00 Labs: Short CBC 07/13/22 Range/Units 05:00 WBC 11.6 H (4.8-10.8) X10*3/uL Hgb 12.7 L (14.0-18.0) g/dl Hct 38.1 L (42.0-52.0) % Plt Count 230 (160-400) X10*3/uL BMP 07/13/22 05:00 Creatinine 1.72 H Microbiology Microbiology Results: Microbiology 07/11/22 20:53 Foot - Right Gram Stain - Final 07/11/22 20:53 Foot - Right Routine Culture - Preliminary Staphylococcus aureus 07/11/22 16:43 Blood - Venous Blood Culture - Preliminary No growth after 24 hours. 07/11/22 16:43 Blood - Venous Blood Culture - Preliminary No growth after 24 hours. Assessment and Plan (1) Diabetic foot ulcer: Status: Acute He has possible OM of foot. He has failed to respond to oral antibiotics and has nonhealing wound He has seen Wound Clinic. (2) Cellulitis of foot, right: Status: Acute Plan Check CT scan foot and evaluate osteomyelitis. Would follow with Wound Care and Vascular if need. Continue broad spectrum antibiotics for now pending above. Time Spent With Patient Time: Total time managing care of this patient today ____ minutes.
[2022-07-13 19:18] VITALS: BP 124/67; PULSE 101; RESP 17; TEMP 37; O2SAT 99
[2022-07-13 19:39] LABS: Vancomycin Random 11.3 mcg/mL (15-20)
[2022-07-13 19:51] LABS: Glucose, Whole Blood 250 mg/dL (60-115)
--- NOTE | 2022-07-13 19:51 | HE.PHANOTE ---
Vancomycin Dosing Addendum Vancomycin trough 11.3. increasing dose to 1000 mg q24h for predicted auc of 472. creatinine trending down. next level 07/14/22 @1900.
[2022-07-13] MEDS: vancomycin HCL 1,000 MG in 0.9 % Sodium Chloride 250 ML 270 MG IV (20:45)
[2022-07-13] MEDS: Atorvastatin Calcium 20 MG TABLET PO (20:48)
[2022-07-14] VITALS (7 sets, daily range): BP systolic 121–145; BP diastolic 68–97; PULSE 78–109; RESP 16–20; TEMP 36.2–37.1; O2SAT 93–100
[2022-07-14] MEDS: cefEPime HCl 1 GM in 0.9 % Sodium Chloride 50 ML IV ×2 (00:18→12:21)
[2022-07-14] MEDS: 0.9 % Sodium Chloride Flush 3 ML SYRINGE IVFLUSH ×4 (00:18→21:43)
[2022-07-14] MEDS: Omeprazole 20 MG CAPSULE.DR PO (05:42)
[2022-07-14 06:54] LABS: Creatinine Clr Calc Pharmacy 35.6; Estimated Glomerular Filt Rate 36
[2022-07-14 08:14] LABS: Glucose, Whole Blood 156 mg/dL (60-115)
[2022-07-14] MEDS: Insulin Lispro 100 UNIT/ML 3 ML VIAL SUBCUT ×4 (08:51→21:44)
[2022-07-14] MEDS: Empagliflozin 10 MG TABLET PO (08:52)
[2022-07-14] MEDS: Heparin Sodium,Porcine 5,000 UNIT/ML VIAL 5000 UNIT SUBCUT ×2 (08:52→21:43)
[2022-07-14] MEDS: Cholecalciferol (Vitamin D3) 25 MCG TABLET 50 MCG PO (08:52)
[2022-07-14 11:55] LABS: Glucose, Whole Blood 279 mg/dL (60-115)
--- NOTE | 2022-07-14 13:37 | P.PNIM_ITS ---
Subjective Subjective Date of Service: 07/14/22 Interval History: Offers no acute complaints, no fevers, no chills, no pain no other acute issues overnight vitals stable receiving IV antibiotics. Review of Systems Review of Systems: Yes all other systems are reviewed and are negative Physical Exam Vital Signs: Vital Signs: Last Vital Signs Temp 97.8 F 07/14/22 12:00 Pulse 90 07/14/22 12:00 Resp 18 07/14/22 12:00 BP 121/70 07/14/22 12:00 Pulse Ox 99 07/14/22 12:00 O2 Del Method Room Air 07/14/22 03:26 BMI result Body Mass Index 28.8 Const: Other: General? awake alert x3, resting comfortably in no acute distress.? Neck?supple no JVD. CVS? regular rate rhythm, Respiratory lungs clear to auscultation, no respiratory distress,no wheeze, no rhonchi. Gastrointestinal abdomen soft,non tender, bowel sounds audible, no?guarding , no rigidity. Extremities?no LE edema. Neuro nonfocal , moving all 4 extremity speech clear. Right? deep plantar ulcer base of right big toe is status post debridement no necrotic tissue noted,, redness dorsum of right foot improving , Objective Data Active Medications Acetaminophen (Acetaminophen 325 Mg Tablet) 650 mg PO Q6H PRN PRN Reason: Pain, Mild (Pain Scale 1-3) Atorvastatin Calcium (Atorvastatin Calcium 20 Mg Tablet) 20 mg PO BEDTIME [facility] Last Admin: 07/13/22 20:48 Dose: 20 mg Documented By: ERINN Docusate Sodium (Docusate Sodium 100 Mg Capsule) 100 mg PO BID [facility] Last Admin: 07/14/22 08:53 Dose: Not Given Documented By: SB Non-Admin Reason: Patient Refused Empagliflozin (Empagliflozin 10 Mg Tablet) 10 mg PO DAILY [facility] Last Admin: 07/14/22 08:52 Dose: 10 mg Documented By: SB Glucose (Glucose Gel 15 Gm Gel..Gram.) 15 gm PO Q15M PRN; Protocol PRN Reason: per Hypoglycemia Standing Ord. Heparin Sodium (Porcine) (Heparin Sodium,Porcine 5,000 Unit/Ml Vial) 5,000 unit SUBCUT Q12H [facility] Last Admin: 07/14/22 08:52 Dose: 5,000 unit Documented By: SB Cefepime HCl 1 gm/ Sodium (Chloride) 50 mls @ 100 mls/hr IV Q12H [facility] Last Infusion: 07/14/22 13:15 Dose: 0 mls/hr Documented By: SB Dextrose (D10) 250 mls @ 750 mls/hr IV Q15M PRN; Protocol PRN Reason: per Hypoglycemia Standing Ord. Vancomycin HCl 1,000 mg/ (Sodium Chloride) 270 mls @ 270 mls/hr IV Q24H [facility] Last Infusion: 07/13/22 22:09 Dose: 0 mls/hr Documented By: ERINN Insulin Human Lispro (Insulin Lispro 100 Unit/Ml 3 Ml Vial) 0 unit SUBCUT QIDACHS [facility]; Protocol Last Admin: 07/14/22 12:22 Dose: 8 unit Documented By: SB Omeprazole (Omeprazole 20 Mg Capsule.Dr) 20 mg PO DAILY@0630 [facility] Last Admin: 07/14/22 05:42 Dose: 20 mg Documented By: COLE Ondansetron HCl (Ondansetron Hcl 4 Mg/2 Ml Vial) 4 mg IVPUSH Q8H PRN PRN Reason: Nausea and Vomiting Pharmacy Consult (Consult Rx Perform Med Rec) 1 each MISCELLANE ONCE PRN PRN Reason: Consult order Pharmacy Consult (Consult Rx Vancomycin Dosing) 1 each MISCELLANE DAILY PRN PRN Reason: Consult order Sodium Chloride (0.9 % Sodium Chloride Flush 3 Ml Syringe) 3 ml IVFLUSH QSHIFT [facility] Last Admin: 07/14/22 08:52 Dose: 3 ml Documented By: SB Vitamin D (Cholecalciferol (Vitamin D3) 25 Mcg Tablet) 50 mcg PO DAILY [facility] Last Admin: 07/14/22 08:52 Dose: 50 mcg Documented By: SB Labs 07/13/22 05:00 07/14/22 06:22 Labs: Laboratory Results - last 24 hr 07/13/22 07/13/22 07/13/22 15:16 19:04 19:21 Estim Creat Clear Calc Estimated GFR POC Glucose 244 H 250 H Random Vancomycin 11.3 L 07/14/22 07/14/22 07/14/22 06:22 08:12 11:50 Estim Creat Clear Calc 35.6 Estimated GFR 36 POC Glucose 156 H 279 H Random Vancomycin Microbiology Microbiology Results: Microbiology 07/11/22 20:53 Gram Stain - Final Foot - Right Routine Culture - Final Staphylococcus aureus Streptococcus viridans group 07/11/22 16:43 Blood Culture - Preliminary Blood - Venous No growth after 48 hours. 07/11/22 16:43 Blood Culture - Preliminary Blood - Venous No growth after 48 hours. Assessment and Plan (1) Diabetic foot ulcer: Status: Acute (2) Cellulitis of foot, right: Status: Acute Plan 81-year-old male with history of uncontrolled eja-siilcut-dzhkxfiuf type 2 diabetes, heart block s/p [facility] device, diastolic heart failure, htn, hld, and diabetic polyneuropathy admitted for acute cellulitis and nonhealing diab etic ulcer right foot. #Infected chronic non-healing right foot ulcer related to diabetes with acute cellulitis no pain, no fevers, redness gradually improving -XR foot did not exclude osteomyelitis. -cont. IV vanco and cefepime (initiated 07/11) -WBC continue to trend down, CRP 17, ESR 71, wound culture grew Staphylococcus aureus and strep viridans, will follow CRP - seen by Dr. Da Silva underwent sharp excisional debridement at bedside, wet to dry dressing applied, no further debridement planned, continue silver alginate dressing MRI cannot be done on the patient since he has a pacemaker therefore CT foot obtained that showed no findings suggestive of osteo, however ostia not complet ann-marie ruled out case discussed with ID she recommend 6 weeks of IV ertapenem, will place midline on Saturday #Severe sepsis - due to above -Leukocytosis 17.9, tachycardia to 111, DEON. Lactic acid WNL, WBC trending down no further tachycardia -Abx as above , #Acute kidney injury- prerenal d/t severe sepsis -Creat 2.18, baseline 1.6. BUN 42, creatinine improved to 1.8 , close to baseline DC IV fluids -CKD stage 3 at baseline # eae-rcbufta-ctfjsijye type 2 diabetes-with hyperglycemia - blood sugars around 200, continue POC glucose,diabetic diet, Humalog sliding scale, will increase sliding scale insulin - hold metformin, glipizide.? Continue Jardiance #HFpEF no acute exacerbation continue Jardiance # hypertension continue metoprolol # HLD -continue statin DVT prophylaxis-heparin Full code patient will need continued inpatient hospitalization for management of infected diabetic foot ulcer with acute cellulitis, cannot exclude osteomyelitis, and severe sepsis requiring IV antibiotics, expert consultation and possible surgical intervention. Time Spent With Patient Time: Total time managing care of this patient today ____ minutes. Quality Stroke Does the patient have a stroke diagnosis?: No VTE Prior VTE?: No VTE Risk Level:: Medical - moderate - high VTE Device Contraindication: Treatment Not Indicated VTE Drug Contraindication: N/A - Med Ordered
[2022-07-14 15:45] LABS: Glucose, Whole Blood 268 mg/dL (60-115)
--- NOTE | 2022-07-14 17:04 | PC.NURSE ---
report given to [facility] - RN, Marleni and Jaida. pt to be transported via wheelchair. dressing changed done at 17:00 - per order silver alginate and wrapped. insulin, 10units, given per RN's request. belongings given to to pt.
[2022-07-14 21:33] LABS: Glucose, Whole Blood 267 mg/dL (60-115)
[2022-07-14] MEDS: Atorvastatin Calcium 20 MG TABLET PO (21:43)
--- NOTE | 2022-07-14 22:36 | PM.EVENT ---
Event Note Date of Service: 07/14/22 Event Note: strep viridans and MSSA wound still gas in wound and high ESR would give IV Ertapenem for six weeks even though osteomyelitis cant be definitively proven Time Spent With Patient Time: Total time managing care of this patient today ____ minutes.
[2022-07-15 02:36] VITALS: BP 131/59; PULSE 68; RESP 16; TEMP 36.5; O2SAT 98
[2022-07-15] MEDS: Omeprazole 20 MG CAPSULE.DR PO (05:33)
[2022-07-15 06:43] LABS: Anion Gap 13 (12-20); Blood Urea Nitrogen 38 mg/dL (9-16); Calcium 9.2 mg/dL (8.4-10.2); Carbon Dioxide 22 mmol/L (22-29); Chloride 109 mmol/L (96-108); Creatinine Clr Calc Pharmacy 38.3; Estimated Glomerular Filt Rate 39; Glucose Random 183 mg/dL (60-115); Potassium 4.1 mmol/L (3.3-5.1); Sodium 140 mmol/L (135-145)
[2022-07-15 06:54] LABS: Hematocrit 37.9 % (42.0-52.0); Hemoglobin 12.4 g/dl (14.0-18.0); Mean Corpuscular HGB Conc 32.7 g/dl (31.0-36.0); Mean Corpuscular Volume 91.5 fL (80.0-98.0); Mean Platelet Volume 10.8 fL (9.4-12.4); Platelet Count 234 X10*3/uL (160-400); Red Blood Count 4.14 X10*6/uL (4.60-5.80); Red Cell Distribution Width 13.1 % (11.0-16.0); White Blood Count 11.9 X10*3/uL (4.8-10.8)
[2022-07-15 07:43] VITALS: BP 132/74; PULSE 92; RESP 20; TEMP 36.3; O2SAT 96
[2022-07-15 07:50] LABS: Glucose, Whole Blood 211 mg/dL (60-115)
[2022-07-15] MEDS: Empagliflozin 10 MG TABLET PO (08:19)
[2022-07-15] MEDS: Insulin Lispro 100 UNIT/ML 3 ML VIAL SUBCUT ×4 (08:19→21:37)
[2022-07-15] MEDS: glipiZIDE XL 2.5 MG TAB.ER.24 PO (08:20)
[2022-07-15] MEDS: Cholecalciferol (Vitamin D3) 25 MCG TABLET 50 MCG PO (08:20)
[2022-07-15] MEDS: Heparin Sodium,Porcine 5,000 UNIT/ML VIAL 5000 UNIT SUBCUT ×2 (08:20→21:36)
[2022-07-15] MEDS: 0.9 % Sodium Chloride Flush 3 ML SYRINGE IVFLUSH ×3 (08:21→21:37)
--- NOTE | 2022-07-15 09:33 | HO.PM.IMPN ---
Subjective Subjective Date of Service: 07/15/22 Interval History: Resting comfortably in bed offers no acute complaints, no fevers, no chills, no headache, no dizziness has no sensation lower extremity, no pain tolerating diet with no nausea vomiting, no further bout of diarrhea. Review of Systems Review of Systems: Yes all other systems are reviewed and are negative Physical Exam Vital Signs: Vital Signs: Last Vital Signs Temp 97.4 F 07/15/22 07:43 Pulse 92 07/15/22 07:43 Resp 20 07/15/22 07:43 BP 132/74 07/15/22 07:43 Pulse Ox 96 07/15/22 07:43 O2 Del Method Room Air 07/15/22 07:43 BMI result Body Mass Index 28.8 Const: Other: General? awake alert x3, resting comfortably in no acute distress.? Neck?supple no JVD. CVS? regular rate rhythm, Respiratory lungs clear to auscultation, no respiratory distress,no wheeze, no rhonchi. Gastrointestinal abdomen soft,non tender, bowel sounds audible, no?guarding , no rigidity. Extremities?no LE edema. Neuro nonfocal , moving all 4 extremity speech clear. Right? deep plantar ulcer base of right big toe status post debridement no necrotic tissue noted,, redness dorsum of right foot improving Objective Data Active Medications Acetaminophen (Acetaminophen 325 Mg Tablet) 650 mg PO Q6H PRN PRN Reason: Pain, Mild (Pain Scale 1-3) Atorvastatin Calcium (Atorvastatin Calcium 20 Mg Tablet) 20 mg PO BEDTIME [facility] Last Admin: 07/14/22 21:43 Dose: 20 mg Documented By: CAPRICE Empagliflozin (Empagliflozin 10 Mg Tablet) 10 mg PO DAILY [facility] Last Admin: 07/15/22 08:19 Dose: 10 mg Documented By: TADEO Glipizide (Glipizide Xl 2.5 Mg Tab.Er.24) 2.5 mg PO DAILY [facility] Last Admin: 07/15/22 08:20 Dose: 2.5 mg Documented By: TADEO Glucose (Glucose Gel 15 Gm Gel..Gram.) 15 gm PO Q15M PRN; Protocol PRN Reason: per Hypoglycemia Standing Ord. Heparin Sodium (Porcine) (Heparin Sodium,Porcine 5,000 Unit/Ml Vial) 5,000 unit SUBCUT Q12H [facility] Last Admin: 07/15/22 08:20 Dose: 5,000 unit Documented By: TADEO Dextrose (D10) 250 mls @ 750 mls/hr IV Q15M PRN; Protocol PRN Reason: per Hypoglycemia Standing Ord. Meropenem 1 gm/ Sodium (Chloride) 100 mls @ 200 mls/hr IV Q12H [facility] Last Infusion: 07/15/22 03:18 Dose: 0 mls/hr Documented By: CAPRICE Insulin Human Lispro (Insulin Lispro 100 Unit/Ml 3 Ml Vial) 0 unit SUBCUT QIDACHS [facility]; Protocol Last Admin: 07/15/22 08:19 Dose: 8 unit Documented By: TADEO Omeprazole (Omeprazole 20 Mg Capsule.Dr) 20 mg PO DAILY@0630 [facility] Last Admin: 07/15/22 05:33 Dose: 20 mg Documented By: CAPRICE Ondansetron HCl (Ondansetron Hcl 4 Mg/2 Ml Vial) 4 mg IVPUSH Q8H PRN PRN Reason: Nausea and Vomiting Pharmacy Consult (Consult Rx Perform Med Rec) 1 each MISCELLANE ONCE PRN PRN Reason: Consult order Sodium Chloride (0.9 % Sodium Chloride Flush 3 Ml Syringe) 3 ml IVFLUSH QSHIFT [facility] Last Admin: 07/15/22 08:21 Dose: 3 ml Documented By: TADEO Vitamin D (Cholecalciferol (Vitamin D3) 25 Mcg Tablet) 50 mcg PO DAILY [facility] Last Admin: 07/15/22 08:20 Dose: 50 mcg Documented By: TADEO Labs 07/15/22 05:49 07/15/22 05:49 Labs: Laboratory Results - last 24 hr 07/14/22 07/14/22 07/14/22 11:50 15:10 21:28 MCV MCH MCHC RDW Plt Count MPV Absolute Nucleated RBC Nucleated RBC % (auto) Anion Gap Estim Creat Clear Calc Estimated GFR POC Glucose 279 H 268 H 267 H Random Glucose Calcium 07/15/22 07/15/22 07/15/22 05:49 05:49 07:46 MCV 91.5 MCH 30.0 MCHC 32.7 RDW 13.1 Plt Count 234 MPV 10.8 Absolute Nucleated RBC 0.000 Nucleated RBC % (auto) 0.0 Anion Gap 13 Estim Creat Clear Calc 38.3 Estimated GFR 39 POC Glucose 211 H Random Glucose 183 H Calcium 9.2 Microbiology Microbiology Results: Microbiology 07/11/22 20:53 Gram Stain - Final Foot - Right Routine Culture - Final Staphylococcus aureus Streptococcus viridans group Assessment and Plan (1) Diabetic foot ulcer: Status: Acute (2) Cellulitis of foot, right: Status: Acute Plan 81-year-old male with history of uncontrolled oby-wjitadq-aglkzqbhm type 2 diabetes, heart block s/p [facility] device, diastolic heart failure, htn, hld, and diabetic polyneuropathy admitted for acute cellulitis and nonhealing diabetic ulcer right foot. #Infected chronic non-healing right foot ulcer related to diabetes with acute cellulitis no pain, no fevers, redness gradually improving -XR foot did not exclude osteomyelitis, MRI not done since patient has a pacemaker CT foot showed no finding suggestive of osteo however osteo not completely ruled out id recommend 6 weeks of IV ertapenem. -s/p IV vanco and cefepime x 3 days , IV antibiotic changed to meropenem 1 g q.12 hours on 07/14 -WBC continue to trend down, CRP 17, ESR 71, wound culture grew Staphylococcus aureus and strep viridans, will follow CRP - seen by Dr. Da Silva underwent sharp excisional debridement at bedside, wet to dry dressing applied, no further debridement planned, continue silver alginate dressing PICC line ordered for 6 weeks of antibiotics #Severe sepsis - due to above -Leukocytosis 17.9, tachycardia to 111, DEON. Lactic acid WNL, WBC trending down no further tachycardia -Abx as above , #Acute on chronic kidney disease stage 3- prerenal d/t severe sepsis -Creat 2.18, baseline 1.6. BUN 42, creatinine improved to baseline, DC IV fluids # hyn-vxlhdpy-uzrtizzpe type 2 diabetes-with hyperglycemia - blood sugars around 200, continue POC glucose,diabetic diet, Humalog sliding scale, sliding scale insulin - hold Trulicity, Continue Jardiance and glipizide #HFpEF no acute exacerbation continue Jardiance # hypertension continue metoprolol # HLD -continue statin DVT prophylaxis-heparin Full code patient will need continued inpatient hospitalization for management of infected diabetic foot ulcer with acute cellulitis, and severe sepsis requiring IV antibiotics, and midline placement. Time Spent With Patient Time: Total time managing care of this patient today ____ minutes. Quality Stroke Does the patient have a stroke diagnosis?: No VTE Prior VTE?: No VTE Risk Level:: Medical - moderate - high VTE Device Contraindication: Treatment Not Indicated VTE Drug Contraindication: N/A - Med Ordered
[2022-07-15 11:29] LABS: Glucose, Whole Blood 226 mg/dL (60-115)
[2022-07-15 12:00] VITALS: BP 139/71; PULSE 90; RESP 20; TEMP 36.3; O2SAT 99
--- NOTE | 2022-07-15 12:48 | P.PNGS_ITS ---
Subjective Subjective Date of Service: 07/15/22 Interval history: pt feeling ok. worried about foot, not hurting but he has neuropathy Physical Exam Vital Signs: Vital Signs: Last Vital Signs Temp 97.4 F 07/15/22 07:43 Pulse 92 07/15/22 07:43 Resp 20 07/15/22 07:43 BP 132/74 07/15/22 07:43 Pulse Ox 96 07/15/22 07:43 O2 Del Method Room Air 07/15/22 07:43 BMI result Body Mass Index 28.8 Const: General: cooperative, healthy appearing, comfortable and no acute distress Skin: Other: cellulitis of right dorsal foot wound much improved the actual wound still has fibrinous tissue necrotic tissue at base and close to bone Objective Data Active Medications Acetaminophen (Acetaminophen 325 Mg Tablet) 650 mg PO Q6H PRN PRN Reason: Pain, Mild (Pain Scale 1-3) Atorvastatin Calcium (Atorvastatin Calcium 20 Mg Tablet) 20 mg PO BEDTIME [facility] Last Admin: 07/14/22 21:43 Dose: 20 mg Documented By: CAPRICE Empagliflozin (Empagliflozin 10 Mg Tablet) 10 mg PO DAILY [facility] Last Admin: 07/15/22 08:19 Dose: 10 mg Documented By: TADEO Glipizide (Glipizide Xl 2.5 Mg Tab.Er.24) 2.5 mg PO DAILY [facility] Last Admin: 07/15/22 08:20 Dose: 2.5 mg Documented By: TADEO Glucose (Glucose Gel 15 Gm Gel..Gram.) 15 gm PO Q15M PRN; Protocol PRN Reason: per Hypoglycemia Standing Ord. Heparin Sodium (Porcine) (Heparin Sodium,Porcine 5,000 Unit/Ml Vial) 5,000 unit SUBCUT Q12H [facility] Last Admin: 07/15/22 08:20 Dose: 5,000 unit Documented By: TADEO Dextrose (D10) 250 mls @ 750 mls/hr IV Q15M PRN; Protocol PRN Reason: per Hypoglycemia Standing Ord. Meropenem 1 gm/ Sodium (Chloride) 100 mls @ 200 mls/hr IV Q12H [facility] Last Infusion: 07/15/22 03:18 Dose: 0 mls/hr Documented By: CAPRICE Insulin Human Lispro (Insulin Lispro 100 Unit/Ml 3 Ml Vial) 0 unit SUBCUT QIDACHS [facility]; Protocol Last Admin: 07/15/22 11:57 Dose: 8 unit Documented By: TADEO Omeprazole (Omeprazole 20 Mg Capsule.) 20 mg PO DAILY@0630 [facility] Last Admin: 07/15/22 05:33 Dose: 20 mg Documented By: CAPRICE Ondansetron HCl (Ondansetron Hcl 4 Mg/2 Ml Vial) 4 mg IVPUSH Q8H PRN PRN Reason: Nausea and Vomiting Pharmacy Consult (Consult Rx Perform Med Rec) 1 each MISCELLANE ONCE PRN PRN Reason: Consult order Sodium Chloride (0.9 % Sodium Chloride Flush 3 Ml Syringe) 3 ml IVFLUSH QSHIFT [facility] Last Admin: 07/15/22 08:21 Dose: 3 ml Documented By: TADEO Sodium Hypochlorite (Sodium Hypochlorite 0.25% 473 Ml Solution) 1 appl TOPICAL DAILY [facility] Vitamin D (Cholecalciferol (Vitamin D3) 25 Mcg Tablet) 50 mcg PO DAILY [facility] Last Admin: 07/15/22 08:20 Dose: 50 mcg Documented By: TADEO Labs 07/15/22 05:49 07/15/22 05:49 Labs: Laboratory Results - last 24 hr 07/14/22 07/14/22 07/15/22 15:10 21:28 05:49 MCV 91.5 MCH 30.0 MCHC 32.7 RDW 13.1 Plt Count 234 MPV 10.8 Absolute Nucleated RBC 0.000 Nucleated RBC % (auto) 0.0 Anion Gap Estim Creat Clear Calc Estimated GFR POC Glucose 268 H 267 H Random Glucose Calcium 07/15/22 07/15/22 07/15/22 05:49 07:46 11:26 MCV MCH MCHC RDW Plt Count MPV Absolute Nucleated RBC Nucleated RBC % (auto) Anion Gap 13 Estim Creat Clear Calc 38.3 Estimated GFR 39 POC Glucose 211 H 226 H Random Glucose 183 H Calcium 9.2 Microbiology Microbiology Results: Microbiology 07/11/22 20:53 Gram Stain - Final Foot - Right Routine Culture - Final Staphylococcus aureus Streptococcus viridans group Procedures Date of Service Date of Service: 07/15/22 Progress Note: A&P Assessment and plan (1) Diabetic foot ulcer: Status: Acute Assessment and Plan: 81 yo male with right diabetic foot wound - cellulitis much improved wound still with a lot of necrotic tissue consider dakins wet to dry bid while in hospital check Hg A1C cont with iv antibx dressings and offloading vascular consult with vascular studies to be done Time Spent With Patient Time: Total time managing care of this patient today ____ minutes. Quality Stroke Does the patient have a stroke diagnosis?: No VTE Prior VTE?: No VTE Risk Level:: Medical - moderate - high VTE Device Contraindication: Treatment Not Indicated VTE Drug Contraindication: N/A - Med Ordered
[2022-07-15 15:18] VITALS: BP 136/71; PULSE 84; RESP 20; TEMP 36.3; O2SAT 98
[2022-07-15 16:15] LABS: Glucose, Whole Blood 269 mg/dL (60-115)
[2022-07-15 19:24] VITALS: BP 141/77; PULSE 106; RESP 18; TEMP 36.7; O2SAT 98
[2022-07-15 19:42] LABS: CDiff Gene PCR POSITIVE (Negative)
[2022-07-15 20:21] LABS: CDIFF Internal ctrl Dots and bkg OK (V)
[2022-07-15 20:37] LABS: CDiff Toxin Negative (Negative)
[2022-07-15 21:07] LABS: Glucose, Whole Blood 244 mg/dL (60-115)
[2022-07-15] MEDS: Atorvastatin Calcium 20 MG TABLET PO (21:36)
[2022-07-15 23:12] VITALS: BP 135/77; PULSE 102; RESP 18; TEMP 36.5; O2SAT 99
[2022-07-16 03:34] VITALS: BP 123/73; PULSE 92; RESP 18; TEMP 36.4; O2SAT 99
[2022-07-16] MEDS: Omeprazole 20 MG CAPSULE.DR PO (06:05)
[2022-07-16 07:07] VITALS: BP 115/67; PULSE 98; RESP 18; TEMP 37.1; O2SAT 98
[2022-07-16 07:29] LABS: Glucose, Whole Blood 252 mg/dL (60-115)
[2022-07-16] MEDS: Heparin Sodium,Porcine 5,000 UNIT/ML VIAL 5000 UNIT SUBCUT ×2 (07:48→22:27)
[2022-07-16] MEDS: Cholecalciferol (Vitamin D3) 25 MCG TABLET 50 MCG PO (07:49)
[2022-07-16] MEDS: glipiZIDE XL 2.5 MG TAB.ER.24 PO (07:49)
[2022-07-16] MEDS: Empagliflozin 10 MG TABLET PO (07:49)
[2022-07-16] MEDS: Insulin Lispro 100 UNIT/ML 3 ML VIAL SUBCUT ×4 (07:49→22:19)
[2022-07-16] MEDS: 0.9 % Sodium Chloride Flush 3 ML SYRINGE IVFLUSH (07:51)
[2022-07-16 08:55] LABS: Estimated Average Glucose 203 mg/dL; Hemoglobin A1c % 8.7 %
--- NOTE | 2022-07-16 10:17 | PM.CNNEP ---
History of Present Illness Reason for Consult Consult date: 07/16/22 Reason for consult: DEON Chief Complaint Chief complaint: Nonhealing diabetic foot ulcer,cellulitis right le History of Present Illness Narrative: 81-year-old male with history of uncontrolled [id number] type 2 diabetes, heart block s/p [facility] device, diastolic heart failure, htn, hld, and diabetic polyneuropathy presented to the ED for evaluation a of a right diabetic foot ulcer and cellulitis.? The patient has been following with a velocity shooter who has debrided the ulcer and recommended he follow with a [facility] for further management of the nonhealing wound.? He had been started on amoxicillin t.i.d. which he completed without improvement in the ulceration and extending erythema.? The patient is unsure how long the wound has been present on the plantar surface of the right foot as he has no sensation.? He denies any fevers but states he has had chills.? Xray right foot showing soft tissue defect and extensive chronic appearing degenerative changes to midfoot and 1st MTP, cannot exclude osteomyelitis, MRI recommended. In the ED, given empiric zosyn. He also received vancomycin. He has a history of chronic kidney disease. Baseline creatinine is around 1.6 mg/dL. Two years ago he had an ultrasound that showed left-sided hydronephrosis. History of BPH and status post TURP few years ago. He sees Dr. Holloway/Urology Review of Systems Constitutional: Denies anorexia and Denies fever(s) Denies dizziness and Denies epistaxis Cardiovascular: Denies chest pain, Denies Epigastric Pain, Denies pedal edema and Denies dyspnea Respiratory: Denies cough, Denies hemoptysis and Denies dyspnea Gastrointestinal: Denies abdominal pain, Denies dyspepsia, Denies diarrhea, Denies nausea and Denies vomiting Genitourinary: Denies oliguria, Denies flank pain and Denies urinary urgency Musculoskeletal: Denies tingling Denies confusion, Denies dizziness, Denies Sensory deficit (Neuro) and Denies tingling Psychiatric: Denies confusion PMFSH Past Medical History Medical History Back pain Decubitus ulcer, heel Diabetes mellitus Heart block History of COVID-19 Hyperlipidemia Hypertension Iron deficiency anemia Ulcer of left heel Urinary retention Family History Family History Brother Testicular cancer Family history: reviewed and not pertinent Surgical History Surgical History History of back surgery History of esophagogastroduodenoscopy History of left hip replacement Hx of cataract extraction Hx of colonoscopy Social History Social History Household Members: Spouse Household Members Other:: 2 Housing: House Do you presently have visiting nurse or other home services: No Alcohol intake: never Patient Tobacco Use Status: Former Tobacco user Tobacco use type: Cigarette Advance Directives Date on File: 07/12/22 service: No Current occupational status: retired [employer] Allergies Allergy/AdvReac Type Severity Reaction Status Date / Time lisinopril [LISINOPRIL] Allergy Severe ANGIOEDEMA Verified 07/11/22 16:06 Active Medications: Current Medications Acetaminophen (Acetaminophen 325 Mg Tablet) 650 mg PO Q6H PRN PRN Reason: Pain, Mild (Pain Scale 1-3) Atorvastatin Calcium (Atorvastatin Calcium 20 Mg Tablet) 20 mg PO BEDTIME [facility] Last Admin: 07/15/22 21:36 Dose: 20 mg Empagliflozin (Empagliflozin 10 Mg Tablet) 10 mg PO DAILY [facility] Last Admin: 07/16/22 07:49 Dose: 10 mg Glipizide (Glipizide Xl 2.5 Mg Tab.Er.24) 2.5 mg PO DAILY [facility] Last Admin: 07/16/22 07:49 Dose: 2.5 mg Glucose (Glucose Gel 15 Gm Gel..Gram.) 15 gm PO Q15M PRN; Protocol PRN Reason: per Hypoglycemia Standing Ord. Heparin Sodium (Porcine) (Heparin Sodium,Porcine 5,000 Unit/Ml Vial) 5,000 unit SUBCUT Q12H [facility] Last Admin: 07/16/22 07:48 Dose: 5,000 unit Dextrose (D10) 250 mls @ 750 mls/hr IV Q15M PRN; Protocol PRN Reason: per Hypoglycemia Standing Ord. Meropenem 1 gm/ Sodium (Chloride) 100 mls @ 200 mls/hr IV Q12H [facility] Last Infusion: 07/16/22 02:57 Dose: Infused Insulin Human Lispro (Insulin Lispro 100 Unit/Ml 3 Ml Vial) 0 unit SUBCUT QIDACHS [facility]; Protocol Last Admin: 07/16/22 07:49 Dose: 10 unit Omeprazole (Omeprazole 20 Mg Capsule.Dr) 20 mg PO DAILY@0630 [facility] Last Admin: 07/16/22 06:05 Dose: 20 mg Ondansetron HCl (Ondansetron Hcl 4 Mg/2 Ml Vial) 4 mg IVPUSH Q8H PRN PRN Reason: Nausea and Vomiting Pharmacy Consult (Consult Rx Perform Med Rec) 1 each MISCELLANE ONCE PRN PRN Reason: Consult order Sodium Chloride (0.9 % Sodium Chloride Flush 3 Ml Syringe) 3 ml IVFLUSH QSHIFT [facility] Last Admin: 07/16/22 07:51 Dose: 3 ml Sodium Hypochlorite (Sodium Hypochlorite 0.25% 473 Ml Solution) 1 appl TOPICAL DAILY [facility] Last Admin: 07/15/22 21:50 Dose: 1 appl Vitamin D (Cholecalciferol (Vitamin D3) 25 Mcg Tablet) 50 mcg PO DAILY [facility] Last Admin: 07/16/22 07:49 Dose: 50 mcg Home Medications Medication Instructions Recorded Confirmed Last Taken Type metoprolol tartrate 25 mg tablet 25 mg PO BID 03/17/20 07/11/22 07/11/22 History simvastatin 40 mg tablet 40 mg PO BEDTIME 03/17/20 07/11/22 07/11/22 History blood sugar diagnostic (OneTouch #10 ea 11/11/20 07/11/22 Unknown History Verio test strips) pantoprazole 20 mg tablet,delayed 20 mg PO DAILY 11/11/20 07/11/22 07/11/22 History release glipizide 2.5 mg tablet, extended 2.5 mg PO DAILY 12/19/20 07/11/22 07/11/22 History release 24 hr cholecalciferol (vitamin D3) 50 50 mcg PO DAILY 07/11/22 07/11/22 07/11/22 History mcg (2,000 unit) tablet dulaglutide 4.5 mg/0.5 mL 4.5 mg subcut WE 07/11/22 07/11/22 07/11/22 History subcutaneous pen injector (Trulicity) empagliflozin 10 mg tablet 10 mg PO DAILY 07/11/22 07/11/22 07/11/22 History (Jardiance) Physical Exam Vital Signs: Last Vital Signs Temp 98.7 F 07/16/22 07:07 Pulse 98 07/16/22 07:07 Resp 18 07/16/22 07:07 BP 115/67 07/16/22 07:07 Pulse Ox 98 07/16/22 07:07 O2 Del Method Room Air 07/16/22 07:07 BMI result Body Mass Index 28.8 General? awake alert x3, resting comfortably in no acute distress.? Neck?supple no JVD. CVS? regular rate rhythm, Respiratory lungs clear to auscultation, no respiratory distress,no wheeze, no rhonchi. Gastrointestinal abdomen soft,non tender, bowel sounds audible, no?guarding , no rigidity. Extremities?no LE edema. Neuro nonfocal , moving all 4 extremity speech clear. Right? deep plantar ulcer base of right big toe is status post debridement no necrotic tissue noted,, redness dorsum of right foot improving , Const General: No confusion Orientation/consciousness: No confusion Neuro General: No confusion Sensory Exam: No Sensory deficit (Neuro) Results Lab Results 07/15/22 05:49 07/15/22 05:49 Lab results: Chemistry 07/14/22 07/15/22 06:22 05:49 Sodium 140 Potassium 4.1 Carbon Dioxide 22 BUN 38 H Creatinine 1.82 H 1.69 H Calcium 9.2 Hematology 07/15/22 05:49 WBC 11.9 H Hgb 12.4 L Plt Count 234 Assessment and Plan (1) Gram-negative bacteremia: Status: Acute (2) CKD (chronic kidney disease) stage 3, GFR 30-59 ml/min: Status: Acute Plan 81-year-old man with a history of longstanding diabetes mellitus and hypertension with stage 3 chronic kidney disease. Baseline serum creatinine is probably around 1.6 mg/dL. He has a history of left-sided hydronephrosis. It is unclear how much of the obstruction is still contributing to his renal insufficiency. During this admission he did sustain acute kidney injury with the creatinine bumping up to 2.1. Creatinine has returned to baseline at this point. Recommendation Check urine for protein, creatinine. Continue to avoid nephrotoxic agents and hypotension. Repeat renal ultrasonogram to assess the hydronephrosis. Watch intake and output. Keep intake more than the output. At this point there is no indication for dialysis and there is no absolute contraindication to insert a PICC line. Time Spent With Patient Time: Total time managing care of this patient today ____ minutes. Procedures Date of Service Date of Service: 07/16/22
[2022-07-16 11:14] LABS: Glucose, Whole Blood 325 mg/dL (60-115)
--- NOTE | 2022-07-16 11:31 | P.PNIM_ITS ---
Subjective Subjective Date of Service: 07/16/22 Interval History: Neuropathic- denies foot pain No fever/chills/abd pain Awaiting PICC Review of Systems Review of Systems: Yes all other systems are reviewed and are negative Physical Exam Vital Signs: Vital Signs: Last Vital Signs Temp 98.7 F 07/16/22 07:07 Pulse 98 07/16/22 07:07 Resp 18 07/16/22 07:07 BP 115/67 07/16/22 07:07 Pulse Ox 98 07/16/22 07:07 O2 Del Method Room Air 07/16/22 07:07 BMI result Body Mass Index 28.8 Gen: in no acute distress HEENT: sclera anicteric, moist mucus membranes Neck: supple Lungs: clear to auscultation bilaterally Heart: regular rate and rhythm, no murmurs Abd: soft, non-tender, non-distended Ext: no edema Skin: warm/well-perfused, plantar ulcer base of R 1st toe, erythema to dorsum of R foot Neuro: alert and oriented x3, no focal findings Psych: appropriate affect Objective Data Active Medications Acetaminophen (Acetaminophen 325 Mg Tablet) 650 mg PO Q6H PRN PRN Reason: Pain, Mild (Pain Scale 1-3) Atorvastatin Calcium (Atorvastatin Calcium 20 Mg Tablet) 20 mg PO BEDTIME [facility] Last Admin: 07/15/22 21:36 Dose: 20 mg Documented By: MIRA Empagliflozin (Empagliflozin 10 Mg Tablet) 10 mg PO DAILY [facility] Last Admin: 07/16/22 07:49 Dose: 10 mg Documented By: GUILLERMO Glipizide (Glipizide Xl 2.5 Mg Tab.Er.24) 2.5 mg PO DAILY [facility] Last Admin: 07/16/22 07:49 Dose: 2.5 mg Documented By: GUILLERMO Glucose (Glucose Gel 15 Gm Gel..Gram.) 15 gm PO Q15M PRN; Protocol PRN Reason: per Hypoglycemia Standing Ord. Heparin Sodium (Porcine) (Heparin Sodium,Porcine 5,000 Unit/Ml Vial) 5,000 unit SUBCUT Q12H [facility] Last Admin: 07/16/22 07:48 Dose: 5,000 unit Documented By: GUILLERMO Dextrose (D10) 250 mls @ 750 mls/hr IV Q15M PRN; Protocol PRN Reason: per Hypoglycemia Standing Ord. Meropenem 1 gm/ Sodium (Chloride) 100 mls @ 200 mls/hr IV Q12H [facility] Last Infusion: 07/16/22 02:57 Dose: 0 mls/hr Documented By: MIRA Insulin Human Lispro (Insulin Lispro 100 Unit/Ml 3 Ml Vial) 0 unit SUBCUT QID ACHS [facility]; Protocol Last Admin: 07/16/22 11:19 Dose: 12 unit Documented By: GUILLERMO Omeprazole (Omeprazole 20 Mg Capsule.) 20 mg PO DAILY@0630 [facility] Last Admin: 07/16/22 06:05 Dose: 20 mg Documented By: MIRA Ondansetron HCl (Ondansetron Hcl 4 Mg/2 Ml Vial) 4 mg IVPUSH Q8H PRN PRN Reason: Nausea and Vomiting Pharmacy Consult (Consult Rx Perform Med Rec) 1 each MISCELLANE ONCE PRN PRN Reason: Consult order Sodium Chloride (0.9 % Sodium Chloride Flush 3 Ml Syringe) 3 ml IVFLUSH QSHIFT [facility] Last Admin: 07/16/22 07:51 Dose: 3 ml Documented By: GUILLERMO Sodium Hypochlorite (Sodium Hypochlorite 0.25% 473 Ml Solution) 1 appl TOPICAL DAILY [facility] Last Admin: 07/16/22 10:52 Dose: 1 appl Documented By: GUILLERMO Vitamin D (Cholecalciferol (Vitamin D3) 25 Mcg Tablet) 50 mcg PO DAILY [facility] Last Admin: 07/16/22 07:49 Dose: 50 mcg Documented By: GUILLERMO Labs 07/15/22 05:49 07/15/22 05:49 Labs: Laboratory Results - last 24 hr 07/15/22 07/15/22 07/15/22 16:08 17:30 21:03 POC Glucose 269 H 244 H Estimat Average Glucose Hemoglobin A1c % C. difficile Tox B Gene POSITIVE A* C. difficile Toxin A&B Negative C. difficile Interpret SEE NOTE 07/16/22 07/16/22 07/16/22 07:09 07:17 11:09 POC Glucose 252 H 325 H Estimat Average Glucose 203 Hemoglobin A1c % 8.7 C. difficile Tox B Gene C. difficile Toxin A&B C. difficile Interpret Assessment and Plan (1) Diabetic foot ulcer: Status: Acute (2) Cellulitis of foot, right: Status: Acute Plan d#6 81yo M with DM2 with polyneuropathy, heart block s/p PPM, diastolic CHF, HTN, HLD admitted for DM foot infection causing severe sepsis # chronic non-healing R foot ulcer with infection, cannot exclude osteomyelitis so treating as that - X-ray did not exclude osteomyelitis, MRI not done due to PPM, CT could not fully rule ouf osteomyelitis - wound Cx grew MSSA + Strep viridans - per ID 6 wk of IV ertapenem, PICC ordered - s/p IV vanc + cefp x3d, changed to chary 07/14 - seen by Surgery, Dr Da Silva performed sharp excision debridement at bedside - Vascular consult pending - wound care instructions: wet to dry dressings of dakins solution to foot wound bid. wet with 2x2 gauze pack and cover with sponge gauze and wrap and secure - severe sepsis resolved # C diff colonization - contact precautions # DEON/CKD3 - SCr at baseline, Nephrology consulted # DM2 with hyperglycemia, A1c 8.7 - continue glipizide + empagliflozin, correction-dose lispro # HTN # chronic HFpEF without acute exacerbation - continue empagliflozin, metoprolol # HLD - continue statin # VTE ppx: UFH # dispo: anticipate home with VNA once has PICC + infusion services at home In my clinical judgment, the patient requires continued inpatient hospitalization for the following reasons: IV ABX Time Spent With Patient Time: Total time managing care of this patient today __35__ minutes. Quality Stroke Does the patient have a stroke diagnosis?: No VTE Prior VTE?: No VTE Risk Level:: Medical - moderate - high VTE Device Contraindication: Treatment Not Indicated VTE Drug Contraindication: N/A - Med Ordered
[2022-07-16 11:37] VITALS: BP 130/69; PULSE 78; RESP 18; TEMP 37; O2SAT 97
--- NOTE | 2022-07-16 12:58 | MHC.CM.PN ---
per rounds no brigid hicks at this time
--- NOTE | 2022-07-16 12:59 | MHC.CM.PN ---
per rounds possible dc today plan remanis home no servcis
--- NOTE | 2022-07-16 14:28 | P.CONGS_ITS ---
History of Present Illness Consult details Consult date: 07/16/22 Reason for consult: wound care Narrative: Very pleasant 81-year-old gentleman with a history of diabetes and chronic kidney disease presented to the hospital with a nonhealing right foot ulcer. It was more towards the medial aspect of the foot. It had been progressing for period of time. He states it was that way for the last 4-6 weeks. It had progressed to the point where it was open and he presented to the hospital. He now presents to us for vascular evaluation. Review of Systems Review of Systems: Yes all other systems are reviewed and are negative Constitutional: Constitutional: Reports no additional constitutional complaints ENT: Reports Normal hearing present Cardiovascular: Cardiovascular: Denies chest pain, Denies chest pain at rest, Denies chest pain with activity and Denies pedal edema Respiratory: Respiratory: Denies cough Gastrointestinal: Gastrointestinal: Denies abdominal pain Musculoskeletal: Musculoskeletal: Denies abnormal gait, Denies muscle cramps and Denies radiating pain into limb Integumentary/Breasts: Skin/Breast: Denies skin ulcer and Denies wounds Neurologic: Reports Normal hearing present and Denies abnormal gait Psychiatric: Psychiatric: Reports no additional psychiatric complaints PMFSH Past Medical History Medical History Back pain Decubitus ulcer, heel Diabetes mellitus Heart block History of COVID-19 Hyperlipidemia Hypertension Iron deficiency anemia Ulcer of left heel Urinary retention Family History Family History Brother Testicular cancer Family history: reviewed and not pertinent Surgical History Surgical History History of back surgery History of esophagogastroduodenoscopy History of left hip replacement Hx of cataract extraction Hx of colonoscopy Social History Social History Household Members: Spouse Household Members Other:: 2 Housing: House Do you presently have visiting nurse or other home services: No Alcohol intake: never Patient Tobacco Use Status: Former Tobacco user Tobacco use type: Cigarette Advance Directives Date on File: 07/12/22 service: No Current occupational status: retired Meds Allergies Allergy/AdvReac Type Severity Reaction Status Date / Time lisinopril [LISINOPRIL] Allergy Severe ANGIOEDEMA Verified 07/11/22 16:06 Active Medications: Current Medications Acetaminophen (Acetaminophen 325 Mg Tablet) 650 mg PO Q6H PRN PRN Reason: Pain, Mild (Pain Scale 1-3) Atorvastatin Calcium (Atorvastatin Calcium 20 Mg Tablet) 20 mg PO BEDTIME COUNT INCLUDES [facility] Last Admin: 07/15/22 21:36 Dose: 20 mg Empagliflozin (Empagliflozin 10 Mg Tablet) 10 mg PO DAILY COUNT [facility]CLUDES [facility] Last Admin: 07/16/22 07:49 Dose: 10 mg Glipizide (Glipizide Xl 2.5 Mg Tab.Er.24) 2.5 mg PO DAILY COUNT INCLUDES [facility] Last Admin: 07/16/22 07:49 Dose: 2.5 mg Glucose (Glucose Gel 15 Gm Gel..Gram.) 15 gm PO Q15M PRN; Protocol PRN Reason: per Hypoglycemia Standing Ord. Heparin Sodium (Porcine) (Heparin Sodium,Porcine 5,000 Unit/Ml Vial) 5,000 unit SUBCUT Q12H COUNT INCLUDES [facility] Last Admin: 07/16/22 07:48 Dose: 5,000 unit Dextrose (D10) 250 mls @ 750 mls/hr IV Q15M PRN; Protocol PRN Reason: per Hypoglycemia Standing Ord. Meropenem 1 gm/ Sodium (Chloride) 100 mls @ 200 mls/hr IV Q12H COUNT [facility]CLUDES [facility] Last Infusion: 07/16/22 14:24 Dose: Infused Insulin Human Lispro (Insulin Lispro 100 Unit/Ml 3 Ml Vial) 0 unit SUBCUT QIDACHS COUNT [facility]CLUDES [facility]; Protocol Last Admin: 07/16/22 11:19 Dose: 12 unit Metoprolol Tartrate (Metoprolol Tartrate 25 Mg Tablet) 25 mg PO BID COUNT [facility]CLUD[facility]; Protocol Omeprazole (Omeprazole 20 Mg Capsule.Dr) 20 mg PO DAILY@0630 [facility]CLUD[facility] Last Admin: 07/16/22 06:05 Dose: 20 mg Ondansetron HCl (Ondansetron Hcl 4 Mg/2 Ml Vial) 4 mg IVPUSH Q8H PRN PRN Reason: Nausea and Vomiting Pharmacy Consult (Consult Rx Perform Med Rec) 1 each MISCELLANE ONCE PRN PRN Reason: Consult order Sodium Chloride (0.9 % Sodium Chloride Flush 3 Ml Syringe) 3 ml IVFLUSH QSHIFT COUNT INCLUDES [facility] Last Admin: 07/16/22 07:51 Dose: 3 ml Sodium Hypochlorite (Sodium Hypochlorite 0.25% 473 Ml Solution) 1 appl TOPICAL DAILY COUNT [facility]CLUDES [facility] Last Admin: 07/16/22 10:52 Dose: 1 appl Vitamin D (Cholecalciferol (Vitamin D3) 25 Mcg Tablet) 50 mcg PO DAILY COUNT [facility]CLUDES [facility] Last Admin: 07/16/22 07:49 Dose: 50 mcg Home Medications Medication Instructions Recorded Confirmed Last Taken Type metoprolol tartrate 25 mg tablet 25 mg PO BID 03/17/20 07/11/22 07/11/22 History simvastatin 40 mg tablet 40 mg PO BEDTIME 03/17/20 07/11/22 07/11/22 History blood sugar diagnostic (OneTouch #10 ea 11/11/20 07/11/22 Unknown History Verio test strips) pantoprazole 20 mg tablet,delayed 20 mg PO DAILY 11/11/20 07/11/22 07/11/22 History release glipizide 2.5 mg tablet, extended 2.5 mg PO DAILY 12/19/20 07/11/22 07/11/22 History release 24 hr cholecalciferol (vitamin D3) 50 50 mcg PO DAILY 07/11/22 07/11/22 07/11/22 History mcg (2,000 unit) tablet dulaglutide 4.5 mg/0.5 mL 4.5 mg subcut WE 07/11/22 07/11/22 07/11/22 History subcutaneous pen injector (Trulicity) empagliflozin 10 mg tablet 10 mg PO DAILY 07/11/22 07/11/22 07/11/22 History (Jardiance) Physical Exam Vital Signs: Vital Signs: Last Vital Signs Temp 98.6 F 07/16/22 11:37 Pulse 78 07/16/22 11:37 Resp 18 07/16/22 11:37 BP 130/69 07/16/22 11:37 Pulse Ox 97 07/16/22 11:37 O2 Del Method Room Air 07/16/22 11:37 BMI result Body Mass Index 28.8 Const: General: cooperative, healthy appearing and comfortable Orientation/consciousness: oriented to person, oriented to place and oriented to time HEENT: Head: Yes normal to inspection Neck: Neck: Yes normal visual inspection Carotids: no bruits Chest: Chest palpation & inspection: normal inspection of the chest Resp: Effort & Inspection: normal respiratory effort and able to speak in complete sentences Auscultation: clear to auscultation bilaterally, no crackles, no rales, no rhonchi and no wheezes Cardio: Other: Nonpalpable pulses Rate: regular rate Rhythm: regular rhythm Heart sounds: S1 normal heart sound present and S2 normal heart sound present Bruits: no carotid bruits GI: Inspection: Yes normal to inspection Skin: Other: Right foot medial aspect over the metatarsal head is a 4 cm in diameter ulcer. This penetrates to bone Wounds: no wounds Hair: normal Neuro: General: oriented to person, oriented to place and oriented to time Cranial nerves: Yes CN's II-XII intact bilaterally and Yes Normal hearing present Cognition (Neuro): normal cognition Motor exam (neuro): 5/5 motor strength present throughout Extrem: Other: venous exam: No significant superficial varicosities or spider telangiectasias, minimal edema General: No clubbing, No cyanosis and No edema Psych: Appearance: grossly normal Mental Status: mental status grossly normal Speech and movement: Normal speech and movement present Results Labs 07/15/22 05:49 07/15/22 05:49 Labs: Abnormal lab results 07/15/22 07/15/22 07/15/22 Range/Units 16:08 17:30 21:03 POC Glucose 269 H 244 H (60-115) mg/dL C. difficile Tox B Gene POSITIVE A* (Negative) 07/16/22 07/16/22 Range/Units 07:09 11:09 POC Glucose 252 H 325 H (60-115) mg/dL C. difficile Tox B Gene (Negative) All other labs normal. Assessment and Plan (1) Ulcer of right 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: Status: Acute Plan In short patient has a nonhealing right foot ulcer. The concern here is that it penetrates down to bone. Clearly there is underlying osteomyelitis. I do believe there is a element of peripheral vascular disease. The AG is artifactually elevated at 1.5 and the patient has nonpalpable pulses. I will discuss this with the patient and may need angiogram. This was discussed in detail with the patient. He was in agreement and would like me to discuss this with his . We will follow-up with the patient tomorrow. Thank you for allowing us to assist in his care. Time Spent With Patient Time: Total time managing care of this patient today ____ minutes. Procedures Date of Service Date of Service: 07/16/22
[2022-07-16 15:19] VITALS: BP 115/77; PULSE 100; RESP 18; TEMP 36; O2SAT 98
--- NOTE | 2022-07-16 17:54 | HO.PICC ---
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 Following completion of [place] Protocol the skin and soft tissues were anesthetized with 1% Lidocaine plain. Using ultrasound guidance, [Right Basilic] vein access was obtained by Dr Gray. Over an 0.018 wire through peel-away sheath, a [4FR Single Lumen PASV] PICC line was positioned. Catheter length is [42CM] internal length, [0CM] external length, for a total trimmed length of [42CM]. The procedure was performed in [Rm. 272]. Tip verification was performed by Hang Gomes with Sherlock 3CG. Tip located in SVC. Ultrasound was used to document vein patency and for needle entry. A formal ultrasound picture and cardiac rhythm strip was recorded. Vascular News Camera Operator has released the line for use and it is currently dressed with a StatLock, Tegaderm, and CHG disc. Verification has been performed for blood return and line patency. The PiCC line was then placed by Jodie Uriarte RN after Dr Gray accessed the Basilic vein. Arm Circumference: [27.5CM] Equipment: [[employer]T [employer] PowerPicc Solo] Catheter Type: [4Fr Single Lumen PASV PICC] Lot #: [[id number]]
[2022-07-16 18:01] LABS: Glucose, Whole Blood 272 mg/dL (60-115)
[2022-07-16 19:09] VITALS: BP 110/67; PULSE 106; RESP 17; TEMP 36; O2SAT 98
[2022-07-16 21:07] LABS: Glucose, Whole Blood 234 mg/dL (60-115)
[2022-07-16] MEDS: Metoprolol Tartrate 25 MG TABLET PO (22:19)
[2022-07-16] MEDS: Atorvastatin Calcium 20 MG TABLET PO (22:19)
[2022-07-16 23:28] VITALS: BP 132/62; PULSE 88; RESP 18; TEMP 36.2; O2SAT 98
[2022-07-17 03:16] VITALS: BP 121/62; PULSE 71; RESP 18; TEMP 36.1; O2SAT 97
[2022-07-17 06:13] LABS: Hematocrit 37.9 % (42.0-52.0); Hemoglobin 12.3 g/dl (14.0-18.0); Mean Corpuscular HGB Conc 32.5 g/dl (31.0-36.0); Mean Corpuscular Hemoglobin 30.1 pg (27.0-33.0); Mean Corpuscular Volume 92.9 fL (80.0-98.0); Mean Platelet Volume 12.1 fL (9.4-12.4); Platelet Count 178 X10*3/uL (160-400); Red Blood Count 4.08 X10*6/uL (4.60-5.80); Red Cell Distribution Width 13.1 % (11.0-16.0); White Blood Count 13.3 X10*3/uL (4.8-10.8)
[2022-07-17] MEDS: Omeprazole 20 MG CAPSULE.DR PO (06:19)
[2022-07-17 06:41] LABS: Anion Gap 15 (12-20); Blood Urea Nitrogen 38 mg/dL (9-16); C Reactive Protein 8.26 mg/dL (< or = 0.50); Calcium 8.9 mg/dL (8.4-10.2); Carbon Dioxide 18 mmol/L (22-29); Chloride 110 mmol/L (96-108); Creatinine Clr Calc Pharmacy 39.5; Estimated Glomerular Filt Rate 41; Glucose Random 146 mg/dL (60-115); Potassium 4.3 mmol/L (3.3-5.1); Sodium 139 mmol/L (135-145)
[2022-07-17 07:08] LABS: Erythrocyte Sedimentation Rate 83 MM/HR (0-15)
[2022-07-17 07:10] VITALS: BP 101/62; PULSE 74; RESP 16; TEMP 36.1; O2SAT 98
[2022-07-17 07:40] LABS: Glucose, Whole Blood 199 mg/dL (60-115)
[2022-07-17] MEDS: Heparin Sodium,Porcine 5,000 UNIT/ML VIAL 5000 UNIT SUBCUT ×2 (08:14→21:35)
[2022-07-17] MEDS: Empagliflozin 10 MG TABLET PO (08:14)
[2022-07-17] MEDS: glipiZIDE XL 2.5 MG TAB.ER.24 PO (08:14)
[2022-07-17] MEDS: Insulin Lispro 100 UNIT/ML 3 ML VIAL SUBCUT ×4 (08:14→21:36)
[2022-07-17] MEDS: Cholecalciferol (Vitamin D3) 25 MCG TABLET 50 MCG PO (08:14)
[2022-07-17] MEDS: Metoprolol Tartrate 25 MG TABLET PO ×2 (08:14→21:35)
[2022-07-17] MEDS: 0.9 % Sodium Chloride Flush 3 ML SYRINGE IVFLUSH ×3 (08:15→21:40)
[2022-07-17] MEDS: 0.9 % Sodium Chloride Flush 10 ML SYRINGE 5 ML IVFLUSH ×2 (08:17→21:36)
--- NOTE | 2022-07-17 10:06 | P.PNVS_ITS ---
Subjective Subjective Date of Service: 07/17/22 Patient reports: no new complaints and feels better Interval history: Very pleasant 81-year-old gentleman presents for follow-up regarding nonhealing right foot ulcer. He has had no interval issues overnight. He did have a PICC line placed. He has this nonhealing right great toe ulcer. He now presents for follow-up with arterial testing. Physical Exam Vital Signs: Vital Signs: Last Vital Signs Temp 97.0 F 07/17/22 07:10 Pulse 74 07/17/22 07:10 Resp 16 07/17/22 07:10 BP 101/62 07/17/22 07:10 Pulse Ox 98 07/17/22 07:10 O2 Del Method Room Air 07/17/22 07:10 BMI result Body Mass Index 28.8 Const: General: cooperative, healthy appearing and no acute distress Orientation/consciousness: oriented to person, oriented to place and oriented to time HEENT: Head: Yes normal to inspection Neck: Carotids: no bruits Chest: Chest palpation & inspection: normal inspection of the chest Resp: Effort & Inspection: normal respiratory effort and able to speak in complete sentences Auscultation: clear to auscultation bilaterally Cardio: Rate: regular rate Heart sounds: S1 normal heart sound present and S2 normal heart sound present GI: Inspection: Yes normal to inspection Skin: Other: Right great toe medial aspect opening penetrating to bone General skin exam: no rashes or lesions noted Wounds: no wounds Neuro: General: oriented to person, oriented to place, oriented to time and CN's II-XI intact bilaterally Extrem: General: Yes normal to inspection, Yes full ROM and Yes no clubbing, cyanosis or edema Psych: Appearance: grossly normal and well kempt Speech and movement: Normal speech and movement present Affect: normal affect Progress Note: A&P Assessment and plan (1) PAD (peripheral artery disease): Status: Acute Assessment and Plan: Patient notes nonhealing right foot ulcer. I have discussed the pathophysiology of peripheral vascular disease with the patient. I have also discussed risk factor modification. I have reviewed the patient's arterial testing which reveals artifactually elevated AG with nonpalpable pulses. the patient would benefit from a right leg endovascular peripheral angiogram with possible angioplasty, stent, and/or atherectomy. This has been discussed in detail with the patient along with risks, benefits, and complications. This includes but is not limited to bleeding, infection, heart attack, need for e mergent surgical repair, limb ischemia, blood vessel damage, bleeding, puncture, kidney injury, bruising, allergic reaction, and skin reaction. The patient demonstrates a clear understanding. We will schedule for the next appropriate time. Thank you for allowing us to assist in this patient's care. Time Spent With Patient Time: Total time managing care of this patient today ____ minutes. Procedures Date of Service Date of Service: 07/17/22 Quality Stroke Does the patient have a stroke diagnosis?: No VTE Prior VTE?: No VTE Risk Level:: Medical - moderate - high VTE Device Contraindication: Treatment Not Indicated VTE Drug Contraindication: N/A - Med Ordered
[2022-07-17 10:09] VITALS: BP 109/58; PULSE 74; RESP 16; TEMP 36.1; O2SAT 100
--- NOTE | 2022-07-17 10:49 | PM.PNNEP ---
Subjective Subjective Date of Service: 07/18/22 Interval history: Neuropathic- denies foot pain No fever/chills/abd pain Awaiting PICC Physical Exam Vital Signs: Vital Signs: Last Vital Signs Temp 96.9 F 07/17/22 10:09 Pulse 74 07/17/22 10:09 Resp 16 07/17/22 10:09 BP 109/58 L 07/17/22 10:09 Pulse Ox 100 07/17/22 10:09 O2 Del Method Room Air 07/17/22 10:09 BMI result Body Mass Index 28.8 Const: General: cooperative Orientation/consciousness: oriented to person and oriented to place Neck: Neck: Yes supple Resp: Effort & Inspection: normal respiratory effort Auscultation: clear to auscultation bilaterally Cardio: Palpation: no palpable S3 and no palpable S4 Heart sounds: no rubs GI: Inspection: Yes normal to inspection Auscultation: normal bowel sounds Skin: General skin exam: no rashes or lesions noted Neuro: General: oriented to person, oriented to place and no focal motor deficits Motor exam (neuro): no asterixis Objective Data Labs 07/17/22 05:12 07/17/22 05:12 Labs: Laboratory Results - last 24 hr 07/16/22 07/16/22 07/16/22 11:09 17:56 20:48 WBC RBC Hgb Hct MCV MCH MCHC RDW Plt Count MPV Absolute Nucleated RBC Nucleated RBC % (auto) ESR Sodium Potassium Chloride Carbon Dioxide Anion Gap BUN Creatinine Estim Creat Clear Calc Estimated GFR POC Glucose 325 H 272 H 234 H Random Glucose Calcium C-Reactive Protein 07/17/22 07/17/22 07/17/22 05:12 05:12 05:12 WBC 13.3 H RBC 4.08 L Hgb 12.3 L Hct 37.9 L MCV 92.9 MCH 30.1 MCHC 32.5 RDW 13.1 Plt Count 178 MPV 12.1 Absolute Nucleated RBC 0.000 Nucleated RBC % (auto) 0.0 ESR 83 H Sodium 139 Potassium 4.3 Chloride 110 H Carbon Dioxide 18 L Anion Gap 15 BUN 38 H Creatinine 1.64 H Estim Creat Clear Calc 39.5 Estimated GFR 41 POC Glucose Random Glucose 146 H Calcium 8.9 C-Reactive Protein 8.26 H 07/17/22 07:08 WBC RBC Hgb Hct MCV MCH MCHC RDW Plt Count MPV Absolute Nucleated RBC Nucleated RBC % (auto) ESR Sodium Potassium Chloride Carbon Dioxide Anion Gap BUN Creatinine Estim Creat Clear Calc Estimated GFR POC Glucose 199 H Random Glucose Calcium C-Reactive Protein Microbiology Microbiology Results: Microbiology 07/11/22 16:43 Blood - Venous Blood Culture - Final No growth after 5 days. 07/11/22 16:43 Blood - Venous Blood Culture - Final No growth after 5 days. 07/11/22 20:53 Foot - Right Gram Stain - Final 07/11/22 20:53 Foot - Right Routine Culture - Final Staphylococcus aureus Streptococcus viridans group Procedures Date of Service Date of Service: 07/17/22 Assessment & Plan Assessment and plan (1) Gram-negative bacteremia: Status: Acute (2) CKD (chronic kidney disease) stage 3, GFR 30-59 ml/min: Status: Acute Plan 81-year-old man with a history of longstanding diabetes mellitus and hypertension with stage 3 chronic kidney disease. Baseline serum creatinine is probably around 1.6 mg/dL. He has a history of left-sided hydronephrosis. It is unclear how much of the obstruction is still contributing to his renal insufficiency. During this admission he did sustain acute kidney injury with the creatinine bumping up to 2.1. Creatinine has returned to baseline at this point. Recommendation urine for protein, creatinine. Continue to avoid nephrotoxic agents and hypotension. Repeat renal ultrasonogram to assess the hydronephrosis. Watch intake and output. Keep intake more than the output. Time Spent With Patient Time: Total time managing care of this patient today ____ minutes. Progress Note: Quality Stroke Does the patient have a stroke diagnosis?: No
--- NOTE | 2022-07-17 10:49 | HO.PM.IMPN ---
Subjective Subjective Date of Service: 07/17/22 Interval History: no fever/chills PICC in place no diarrhea Vasc Surg plans angiogram Review of Systems Review of Systems: Yes all other systems are reviewed and are negative Physical Exam Vital Signs: Vital Signs: Last Vital Signs Temp 96.9 F 07/17/22 10:09 Pulse 74 07/17/22 10:09 Resp 16 07/17/22 10:09 BP 109/58 L 07/17/22 10:09 Pulse Ox 100 07/17/22 10:09 O2 Del Method Room Air 07/17/22 10:09 BMI result Body Mass Index 28.8 Gen: in no acute distress HEENT: sclera anicteric, moist mucus membranes Neck: supple Lungs: clear to auscultation bilaterally Heart: regular rate and rhythm, no murmurs Abd: soft, non-tender, non-distended Ext: no edema Skin: warm/well-perfused, plantar ulcer base of R 1st toe that probes to bone, erythema to dorsum of R foot Neuro: alert and oriented x3, no focal findings Psych: appropriate affect Objective Data Active Medications Acetaminophen (Acetaminophen 325 Mg Tablet) 650 mg PO Q6H PRN PRN Reason: Pain, Mild (Pain Scale 1-3) Atorvastatin Calcium (Atorvastatin Calcium 20 Mg Tablet) 20 mg PO BEDTIME [facility] Last Admin: 07/16/22 22:19 Dose: 20 mg Documented By: MCKINLEY Empagliflozin (Empagliflozin 10 Mg Tablet) 10 mg PO DAILY [facility] Last Admin: 07/17/22 08:14 Dose: 10 mg Documented By: GUILLERMO Glipizide (Glipizide Xl 2.5 Mg Tab.Er.24) 2.5 mg PO DAILY [facility] Last Admin: 07/17/22 08:14 Dose: 2.5 mg Documented By: GUILLERMO Glucose (Glucose Gel 15 Gm Gel..Gram.) 15 gm PO Q15M PRN; Protocol PRN Reason: per Hypoglycemia Standing Ord. Heparin Sodium (Porcine) (Heparin Sodium,Porcine 5,000 Unit/Ml Vial) 5,000 unit SUBCUT Q12H [facility] Last Admin: 07/17/22 08:14 Dose: 5,000 unit Documented By: GUILLERMO Dextrose (D10) 250 mls @ 750 mls/hr IV Q15M PRN; Protocol PRN Reason: per Hypoglycemia Standing Ord. Meropenem 1 gm/ Sodium (Chloride) 100 mls @ 200 mls/hr IV Q12H [facility] Last Infusion: 07/17/22 03:17 Dose: 0 mls/hr Documented By: MCKINLEY Sodium Chloride (Ns) 1,000 mls @ 100 mls/hr IVCONT .Q10H [facility] Insulin Human Lispro (Insulin Lispro 100 Unit/Ml 3 Ml Vial) 0 unit SUBCUT QIDACHS [facility]; Protocol Last Admin: 07/17/22 08:14 Dose: 4 unit Documented By: GUILLERMO Metoprolol Tartrate (Metoprolol Tartrate 25 Mg Tablet) 25 mg PO BID [facility]; Protocol Last Admin: 07/17/22 08:14 Dose: 25 mg Documented By: GUILLERMO Omeprazole (Omeprazole 20 Mg Capsule.Dr) 20 mg PO DAILY@0630 [facility] Last Admin: 07/17/22 06:19 Dose: 20 mg Documented By: MCKINLEY Ondansetron HCl (Ondansetron Hcl 4 Mg/2 Ml Vial) 4 mg IVPUSH Q8H PRN PRN Reason: Nausea and Vomiting Pharmacy Consult (Consult Rx Perform Med Rec) 1 each MISCELLANE ONCE PRN PRN Reason: Consult order Sodium Chloride (0.9 % Sodium Chloride Flush 3 Ml Syringe) 3 ml IVFLUSH QSHIFT [facility] Last Admin: 07/17/22 08:15 Dose: 3 ml Documented By: GUILLERMO Sodium Chloride (0.9 % Sodium Chloride Flush 10 Ml Syringe) 5 ml IVFLUSH TID [facility] Last Admin: 07/17/22 08:17 Dose: 5 ml Documented By: GUILLERMO Sodium Hypochlorite (Sodium Hypochlorite 0.25% 473 Ml Solution) 1 appl TOPICAL DAILY [facility] Last Admin: 07/17/22 08:17 Dose: 1 appl Documented By: GUILLERMO Vitamin D (Cholecalciferol (Vitamin D3) 25 Mcg Tablet) 50 mcg PO DAILY [facility] Last Admin: 07/17/22 08:14 Dose: 50 mcg Documented By: GUILLERMO Labs 07/17/22 05:12 07/17/22 05:12 Labs: Laboratory Results - last 24 hr 07/16/22 07/16/22 07/16/22 11:09 17:56 20:48 MCV MCH MCHC RDW Plt Count MPV Absolute Nucleated RBC Nucleated RBC % (auto) ESR Anion Gap Estim Creat Clear Calc Estimated GFR POC Glucose 325 H 272 H 234 H Random Glucose Calcium C-Reactive Protein 07/17/22 07/17/22 07/17/22 05:12 05:12 05:12 MCV 92.9 MCH 30.1 MCHC 32.5 RDW 13.1 Plt Count 178 MPV 12.1 Absolute Nucleated RBC 0.000 Nucleated RBC % (auto) 0.0 ESR 83 H Anion Gap 15 Estim Creat Clear Calc 39.5 Estimated GFR 41 POC Glucose Random Glucose 146 H Calcium 8.9 C-Reactive Protein 8.26 H 07/17/22 07:08 MCV MCH MCHC RDW Plt Count MPV Absolute Nucleated RBC Nucleated RBC % (auto) ESR Anion Gap Estim Creat Clear Calc Estimated GFR POC Glucose 199 H Random Glucose Calcium C-Reactive Protein Microbiology Microbiology Results: Microbiology 07/11/22 16:43 Blood Culture - Final Blood - Venous No growth after 5 days. 07/11/22 16:43 Blood Culture - Final Blood - Venous No growth after 5 days. 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 wet with 2x2 gauze pack and cover with sponge gauze and wrap and secure - severe sepsis resolved # C diff colonization - contact precautions # DEON/CKD3 - SCr at baseline, Nephrology consulted # DM2 with hyperglycemia, A1c 8.7 - continue glipizide + empagliflozin, correction-dose lispro # HTN # chronic HFpEF without acute exacerbation - continue empagliflozin, metoprolol # HLD - continue statin # VTE ppx: UFH # dispo: anticipate home after vascular intervention In my clinical judgment, the patient requires continued inpatient hospitalization for the following reasons: IV ABX, angiogram Time Spent With Patient Time: Total time managing care of this patient today __35__ minutes. Quality Stroke Does the patient have a stroke diagnosis?: No VTE Prior VTE?: No VTE Risk Level:: Medical - moderate - high VTE Device Contraindication: Treatment Not Indicated VTE Drug Contraindication: N/A - Med Ordered
[2022-07-17 11:40] LABS: Glucose, Whole Blood 230 mg/dL (60-115)
[2022-07-17 12:09] LABS: Appearance Urine Clear; Color Urine Yellow; Glucose Urine UA >=1000 mg/dL (Negative); Leukocyte Esterase Urine Small (1+) (Negative); Nitrite Urine Negative (Negative); PH 5.5 (5.0-9.0); UMIC TRIGGER UA YES; Urine Blood Large (3+) (Negative); Urine Ketones Negative (Negative); Urine Protein Trace mg/dL (Neg-Trace)
[2022-07-17 12:14] LABS: Bacteria Urine None Seen (None Seen); Hyaline Casts Urine 0-2 /LPF (0-2); WBC Urine 21-50 /HPF (0-5)
[2022-07-17 12:43] LABS: Creatinine Urine 45.77 mg/dL
[2022-07-17 12:45] LABS: Total Protein Urine Random 18 mg/dL (<12)
[2022-07-17 15:20] VITALS: BP 137/69; PULSE 75; RESP 18; TEMP 36.7; O2SAT 97
[2022-07-17 16:45] LABS: Glucose, Whole Blood 179 mg/dL (60-115)
[2022-07-17 19:26] VITALS: BP 142/71; PULSE 78; RESP 17; TEMP 36; O2SAT 100
[2022-07-17 20:03] LABS: Glucose, Whole Blood 217 mg/dL (60-115)
[2022-07-17] MEDS: Atorvastatin Calcium 20 MG TABLET PO (21:35)
[2022-07-18] VITALS (9 sets, daily range): BP systolic 134–171; BP diastolic 70–87; PULSE 81–96; RESP 14–20; TEMP 36.2–36.6; O2SAT 98–100; BMI 28.8
[2022-07-18] MEDS: 0.9 % Sodium Chloride 1,000 ML 100 ML IVCONT ×2 (04:17→19:41)
[2022-07-18 07:30] LABS: Glucose, Whole Blood 178 mg/dL (60-115)
--- NOTE | 2022-07-18 09:30 | P.OP_ITS ---
Operative Note Operative Note Date of Service: 07/18/22 Narrative: Angiogram report from [facility] Preoperative diagnosis: Atherosclerosis of right lower extremity with nonhealing ulcer Postoperative diagnosis: Same Procedure: 1. Ultrasound-guided left common femoral access 2. Aortogram with right lower extremity runoff 3. Right SFA atherectomy and plasty Surgeon:Gato Land M.D., FACS, RPVI Flare Stitcher:None Anesthesia: Local with moderate conscious sedation. Total intraservice moderate sedation time was 50 minutes. I monitored the patient's level of consciousness and physiologic status continuously throughout the procedure. Specimens:none Drains:none Estimated blood loss: Less than 10 ml Implant: Medtronic Impact DCB 6 x 40 Indications: 81-year-old diabetic gentleman with it nonhealing right great toe ulcer presents for endovascular intervention. The patient has signed the informed consent after reviewing risks, complications, benefits, and alternatives previously discussed with the patient. The patient was given the opportunity to ask any additional questions or voice any concerns. All questions were answered to the patient's satisfaction. Procedure in detail: Patient was brought to the angiography suite prior to which a time-out was called for patient identification and site verification. Bilateral groins were prepped and draped in the standard surgical fashion. Under ultrasound guidance left common femoral was punctured with micro puncture needle and wire. Subsequently a precision 4 [place] sheath was then placed. Bentson wire was advanced to the level of the aorta. 4 [place] Flush catheter was brought up and parked at the level of the renal arteries. Aortogram was then undertaken. Catheter was brought down to the level of the iliac bifurcation. Iliacs were subsequently imaged. Catheter was then brought in up and over to the right side SFA. Runoff study was then undertaken. It was recognized that the runoff was reasonable but there was a moderate stenosis at Luis Felipe's canal in the right SFA. At this time 5000 units of systemic heparin was administered. Up and over 6 [place] sheath was then placed. We advanced an 035 glidewire Advantage over this area. We confirmed true lumen by instilling contrast through a trail Blazer catheter. We then removed the 035 wire and inserted a 6 [place] spider wire. This was placed towards the popliteal area. Over this we then advanced a 6 [place]amb[place] Hawk-1 atherectomy device. Multiple unidirectional passes were then undertaken. This was removed and we did note a significant luminal improvement but there was still some mild residual stenosis. Over the Spire wire we advanced a 6 x 40 drug coated balloon. This was brought into position in under 3 minutes and then insufflated for a total of 3 minutes in duration. Once this was accomplished completion angiogram demonstrated excellent result. Catheter wire sheath was brought back to the ipsilateral side. StarClose closure device was then deployed. Direct pressure was held for about 10 minutes and adequate hemostasis was achieved. Patient was returned to recovery with stable vitals. Interpretation of films: 1. Ultrasound demonstrates appropriate femoral puncture. Image of which was saved. 2. Aortogram demonstrates appropriate caliber aorta. Minimal disease. Appropriate take-off of the renals. 3. Iliac images demonstrate no significant disease but high-grade tortuosity on the right iliac 4. Right Leg Common femoral artery: No significant disease Profundus Femoris: No significant disease Superficial femoral artery: Moderate stenosis at Luis Felipe's canal with immediate reconstitution Popliteal artery (p1,p2,p3): No significant disease Anterior tibial artery: Patent with strong runoff all the way to the ankle Peroneal artery: Diminutive but flow all the way down to mid calf Posterior tibial artery: Patent with strong runoff all the way down to the ankle Dorsalis pedis/plantar arch: Incomplete Conclusion: 1. Successful atherectomy and plasty of right SFA 2. Anticoagulation status: Will need to be on aspirin and Plavix for 6 months in duration This note is constructed using voice recognition software. While every effort has been made to ensure accuracy, almond paste mixer errors may have been included. Thank you for allowing me to participate in the care of your patient. Yours sincerely, Gato Land MD, FACS, R.P.V.I.
[2022-07-18] MEDS: Clopidogrel Bisulfate 300 MG TABLET PO (09:53)
[2022-07-18] MEDS: Aspirin 325 MG TABLET 650 MG PO (09:53)
--- NOTE | 2022-07-18 10:00 | P.PNNP_ITS ---
Subjective Subjective Date of Service: 07/19/22 Interval history: no fever/chills PICC in place no diarrhea Vasc Surg plans angiogram Physical Exam Vital Signs: Vital Signs: Last Vital Signs Temp 98 F 07/18/22 09:25 Pulse 85 07/18/22 09:55 Resp 16 07/18/22 09:55 BP 154/77 H 07/18/22 09:55 Pulse Ox 100 07/18/22 09:55 O2 Del Method Room Air 07/18/22 09:55 BMI result Body Mass Index 28.8 Const: General: cooperative; No confusion Orientation/consciousness: oriented to person, oriented to place and No confusion Neck: Neck: Yes supple Resp: Effort & Inspection: normal respiratory effort Auscultation: clear to auscultation bilaterally Cardio: Palpation: no palpable S3 and no palpable S4 Heart sounds: no rubs GI: Inspection: Yes normal to inspection Auscultation: normal bowel sounds Skin: General skin exam: no rashes or lesions noted Neuro: General: oriented to person, oriented to place, no focal motor deficits and No confusion Motor exam (neuro): no asterixis Sensory Exam: No Sensory deficit (Neuro) Objective Data Labs 07/17/22 05:12 07/17/22 05:12 Labs: Laboratory Results - last 24 hr 07/17/22 07/17/22 07/17/22 11:36 11:43 11:43 POC Glucose 230 H Urine Color Yellow Urine Appearance Clear Urine pH 5.5 Ur Specific [place] 1.020 Urine Protein Trace Urine Glucose (UA) >=1000 H Urine Ketones Negative Urine Blood Large (3+) H Urine Nitrite Negative Ur Leukocyte Esterase Small (1+) H Urine RBC 6-10 H Urine WBC 21-50 H Ur Squamous Epith Cells 3-5 Urine Bacteria None Seen Hyaline Casts 0-2 U Random Total Protein 18 H Urine Creatinine 07/17/22 07/17/22 07/17/22 11:43 16:34 19:56 POC Glucose 179 H 217 H Urine Color Urine Appearance Urine pH Ur Specific [place] Urine Protein Urine Glucose (UA) Urine Ketones Urine Blood Urine Nitrite Ur Leukocyte Esterase Urine RBC Urine WBC Ur Squamous Epith Cells Urine Bacteria Hyaline Casts U Random Total Protein Urine Creatinine 45.77 07/18/22 07:13 POC Glucose 178 H Urine Color Urine Appearance Urine pH Ur Specific [place] Urine Protein Urine Glucose (UA) Urine Ketones Urine Blood Urine Nitrite Ur Leukocyte Esterase Urine RBC Urine WBC Ur Squamous Epith Cells Urine Bacteria Hyaline Casts U Random Total Protein Urine Creatinine Microbiology Microbiology Results: Microbiology 07/11/22 16:43 Blood - Venous Blood Culture - Final No growth after 5 days. 07/11/22 16:43 Blood - Venous Blood Culture - Final No growth after 5 days. 07/11/22 20:53 Foot - Right Gram Stain - Final 07/11/22 20:53 Foot - Right Routine Culture - Final Staphylococcus aureus Streptococcus viridans group Procedures Date of Service Date of Service: 07/18/22 Assessment & Plan Assessment and plan (1) Gram-negative bacteremia: Status: Acute (2) CKD (chronic kidney disease) stage 3, GFR 30-59 ml/min: Status: Acute Plan 81-year-old man with a history of longstanding diabetes mellitus and hypertension with stage 3 chronic kidney disease. Baseline serum creatinine is probably around 1.6 mg/dL. He has a history of left-sided hydronephrosis. It is unclear how much of the obstruction is still contributing to his renal insufficiency. During this admission he did sustain acute kidney injury with the creatinine bumping up to 2.1. Creatinine has returned to baseline at this point. Recommendation check creatinine with the next 24-48 hours after the angiography Continue to avoid nephrotoxic agents and hypotension. Repeat renal ultrasonogram to assess the hydronephrosis. Watch intake and output. Keep intake more than the output. Time Spent With Patient Time: Total time managing care of this patient today ____ minutes. Progress Note: Quality Stroke Does the patient have a stroke diagnosis?: No
--- NOTE | 2022-07-18 10:45 | P.PNIM_ITS ---
Subjective Subjective Date of Service: 07/18/22 Interval History: revascularization done today no diarrhea no foot pain Review of Systems Review of Systems: Yes all other systems are reviewed and are negative Physical Exam Vital Signs: Vital Signs: Last Vital Signs Temp 98 F 07/18/22 09:25 Pulse 92 07/18/22 10:40 Resp 16 07/18/22 10:40 BP 134/79 07/18/22 10:40 Pulse Ox 100 07/18/22 10:40 O2 Del Method Room Air 07/18/22 10:40 BMI result Body Mass Index 28.8 Gen: in no acute distress HEENT: sclera anicteric, moist mucus membranes Neck: supple Lungs: clear to auscultation bilaterally Heart: regular rate and rhythm, no murmurs Abd: soft, non-tender, non-distended Ext: no edema Skin: warm/well-perfused, plantar ulcer base of R 1st toe that probes to bone, erythema to dorsum of R foot Neuro: alert and oriented x3, no focal findings Psych: appropriate affect Objective Data Active Medications Acetaminophen (Acetaminophen 325 Mg Tablet) 650 mg PO Q6H PRN PRN Reason: Pain, Mild (Pain Scale 1-3) Aspirin (Aspirin 81 Mg Tab.Chew) 81 mg PO DAILY [facility] Atorvastatin Calcium (Atorvastatin Calcium 20 Mg Tablet) 20 mg PO BEDTIME [facility] Last Admin: 07/17/22 21:35 Dose: 20 mg Documented By: KENNETH Clopidogrel Bisulfate (Clopidogrel Bisulfate 75 Mg Tablet) 75 mg PO DAILY [facility] Empagliflozin (Empagliflozin 10 Mg Tablet) 10 mg PO DAILY [facility] Last Admin: 07/17/22 08:14 Dose: 10 mg Documented By: GUILLERMO Glipizide (Glipizide Xl 2.5 Mg Tab.Er.24) 2.5 mg PO DAILY [facility] Last Admin: 07/17/22 08:14 Dose: 2.5 mg Documented By: GUILLERMO Glucose (Glucose Gel 15 Gm Gel..Gram.) 15 gm PO Q15M PRN; Protocol PRN Reason: per Hypoglycemia Standing Ord. Heparin Sodium (Porcine) (Heparin Sodium,Porcine 5,000 Unit/Ml Vial) 5,000 unit SUBCUT Q12H [facility] Last Admin: 07/17/22 21:35 Dose: 5,000 unit Documented By: KENNETH Dextrose (D10) 250 mls @ 750 mls/hr IV Q15M PRN; Protocol PRN Reason: per Hypoglycemia Standing Ord. Meropenem 1 gm/ Sodium (Chloride) 100 mls @ 200 mls/hr IV Q12H [facility] Last Infusion: 07/18/22 05:35 Dose: 0 mls/hr Documented By: KENNETH Sodium Chloride (Ns) 1,000 mls @ 100 mls/hr IVCONT .Q10H [facility] Last Admin: 07/18/22 04:17 Dose: 100 mls/hr Documented By: KENNETH Insulin Human Lispro (Insulin Lispro 100 Unit/Ml 3 Ml Vial) 0 unit SUBCUT QIDACHS [facility]; Protocol Last Admin: 07/18/22 07:41 Dose: Not Given Documented By: YVROSE Non-Admin Reason: Off Unit: Surgery Metoprolol Tartrate (Metoprolol Tartrate 25 Mg Tablet) 25 mg PO BID [facility]; Protocol Last Admin: 07/17/22 21:35 Dose: 25 mg Documented By: KENNETH Omeprazole (Omeprazole 20 Mg Capsule.Dr) 20 mg PO DAILY@0630 [facility] Last Admin: 07/18/22 04:20 Dose: Not Given Documented By: KENNETH Non-Admin Reason: NPO Ondansetron HCl (Ondansetron Hcl 4 Mg/2 Ml Vial) 4 mg IVPUSH Q8H PRN PRN Reason: Nausea and Vomiting Oxycodone HCl (Oxycodone Hcl Immed Release 5 Mg Tablet) 5 mg PO Q4H PRN PRN Reason: Pain, Moderate(Pain Scale 4-6) Pharmacy Consult (Consult Rx Perform Med Rec) 1 each MISCELLANE ONCE PRN PRN Reason: Consult order Sodium Chloride (0.9 % Sodium Chloride Flush 3 Ml Syringe) 3 ml IVFLUSH QSHIFT [facility] Last Admin: 07/18/22 07:42 Dose: Not Given Documented By: YVROSE Non-Admin Reason: Off Unit: Surgery Sodium Chloride (0.9 % Sodium Chloride Flush 10 Ml Syringe) 5 ml IVFLUSH TID [facility] Last Admin: 07/17/22 21:36 Dose: 5 ml Documented By: KENNETH Sodium Hypochlorite (Sodium Hypochlorite 0.25% 473 Ml Solution) 1 appl TOPICAL DAILY [facility] Last Admin: 07/17/22 08:17 Dose: 1 appl Documented By: GUILLERMO Vitamin D (Cholecalciferol (Vitamin D3) 25 Mcg Tablet) 50 mcg PO DAILY [facility] Last Admin: 07/17/22 08:14 Dose: 50 mcg Documented By: GUILLERMO Labs 07/17/22 05:12 07/17/22 05:12 Labs: Laboratory Results - last 24 hr 07/17/22 07/17/22 07/17/22 11:36 11:43 11:43 POC Glucose 230 H Urine Color Yellow Urine Appearance Clear Urine pH 5.5 Ur Specific [place] 1.020 Urine Protein Trace Urine Glucose (UA) >=1000 H Urine Ketones Negative Urine Blood Large (3+) H Urine Nitrite Negative Ur Leukocyte Esterase Small (1+) H Urine RBC 6-10 H Urine WBC 21-50 H Ur Squamous Epith Cells 3-5 Urine Bacteria None Seen Hyaline Casts 0-2 U Random Total Protein 18 H Urine Creatinine 07/17/22 07/17/22 07/17/22 11:43 16:34 19:56 POC Glucose 179 H 217 H Urine Color Urine Appearance Urine pH Ur Specific [place] Urine Protein Urine Glucose (UA) Urine Ketones Urine Blood Urine Nitrite Ur Leukocyte Esterase Urine RBC Urine WBC Ur Squamous Epith Cells Urine Bacteria Hyaline Casts U Random Total Protein Urine Creatinine 45.77 07/18/22 07:13 POC Glucose 178 H Urine Color Urine Appearance Urine pH Ur Specific [place] Urine Protein Urine Glucose (UA) Urine Ketones Urine Blood Urine Nitrite Ur Leukocyte Esterase Urine RBC Urine WBC Ur Squamous Epith Cells Urine Bacteria Hyaline Casts U Random Total Protein Urine Creatinine Assessment and Plan (1) Diabetic foot ulcer: Status: Acute (2) Cellulitis of foot, right: Status: Acute Plan d#8 81yo M with DM2 with polyneuropathy, heart block s/p PPM, diastolic CHF, HTN, HLD admitted for DM foot infection causing severe sepsis # chronic non-healing R foot ulcer with infection, osteomyelitis by definition of wound probing to bone - wound Cx grew MSSA + Strep viridans - per ID 6 wk of IV ertapenem, PICC placed 07/16/22 - s/p IV vanc + cefp x3d, changed to chary 07/14 - seen by Surgery, Dr Da Silva performed sharp excision debridement at bedside - Vascular Surgery consulted: to OR for angiogram tomorrow - wound care instructions: wet to dry dressings of dakins solution to foot wound bid. wet with 2x2 gauze pack and cover with sponge gauze and wrap and secure - severe sepsis resolved # C diff colonization - contact precautions # DEON/CKD3 - SCr at baseline, Nephrology consulted, recheck SCr given angiography today, also check renal US due to hx of L hydronephrosis # DM2 with hyperglycemia, A1c 8.7 - continue glipizide + empagliflozin, correction-dose lispro # HTN # chronic HFpEF without acute exacerbation - continue empagliflozin, metoprolol # HLD - continue statin # VTE ppx: UFH # dispo: anticipate home tomorrow with [facility] services In my clinical judgment, the patient requires continued inpatient hospital ization for the following reasons: IV ABX, postop Time Spent With Patient Time: Total time managing care of this patient today __40__ minutes. Quality Stroke Does the patient have a stroke diagnosis?: No VTE Prior VTE?: No VTE Risk Level:: Medical - moderate - high VTE Device Contraindication: Treatment Not Indicated VTE Drug Contraindication: N/A - Med Ordered
[2022-07-18 12:04] LABS: Glucose, Whole Blood 167 mg/dL (60-115)
[2022-07-18] MEDS: Metoprolol Tartrate 25 MG TABLET PO ×2 (12:20→21:31)
[2022-07-18] MEDS: 0.9 % Sodium Chloride Flush 3 ML SYRINGE IVFLUSH (12:20)
[2022-07-18] MEDS: Cholecalciferol (Vitamin D3) 25 MCG TABLET 50 MCG PO (12:20)
[2022-07-18] MEDS: Empagliflozin 10 MG TABLET PO (12:20)
[2022-07-18] MEDS: Heparin Sodium,Porcine 5,000 UNIT/ML VIAL 5000 UNIT SUBCUT ×2 (12:21→21:30)
[2022-07-18] MEDS: glipiZIDE XL 2.5 MG TAB.ER.24 PO (12:21)
--- NOTE | 2022-07-18 13:27 | MHC.CM.PN ---
Per MD rounds no discharge today. Patient is scheduled for a procedure with Dr Land, Vascular surgeon. Pt is planned for discharge tomorrow to home with IV ABX x 6 weeks. [facility] provide home services. DP home with [facility] and [facility] for LT ABX. Patient will arrange for transport home.
[2022-07-18 16:35] LABS: Glucose, Whole Blood 236 mg/dL (60-115)
[2022-07-18] MEDS: Insulin Lispro 100 UNIT/ML 3 ML VIAL SUBCUT ×2 (17:13→21:31)
[2022-07-18 21:07] LABS: Glucose, Whole Blood 252 mg/dL (60-115)
[2022-07-18] MEDS: Atorvastatin Calcium 20 MG TABLET PO (21:31)
[2022-07-19 00:15] VITALS: BP 128/69; PULSE 87; RESP 18; TEMP 36.2; O2SAT 100
[2022-07-19] MEDS: polyethylene glycoL 3350 17 GM POWD.PACK PO (02:33)
[2022-07-19] MEDS: Omeprazole 20 MG CAPSULE.DR PO (05:39)
[2022-07-19 06:21] LABS: Anion Gap 15 (12-20); Blood Urea Nitrogen 41 mg/dL (9-16); Calcium 8.7 mg/dL (8.4-10.2); Carbon Dioxide 17 mmol/L (22-29); Chloride 112 mmol/L (96-108); Creatinine Clr Calc Pharmacy 42.1; Estimated Glomerular Filt Rate 44; Glucose Random 130 mg/dL (60-115); Potassium 4.3 mmol/L (3.3-5.1); Sodium 140 mmol/L (135-145)
[2022-07-19 07:32] LABS: Glucose, Whole Blood 144 mg/dL (60-115)
[2022-07-19] MEDS: Empagliflozin 10 MG TABLET PO (08:44)
[2022-07-19] MEDS: Clopidogrel Bisulfate 75 MG TABLET PO (08:45)
[2022-07-19] MEDS: Cholecalciferol (Vitamin D3) 25 MCG TABLET 50 MCG PO (08:45)
[2022-07-19] MEDS: Aspirin 81 MG TAB.CHEW PO (08:45)
[2022-07-19] MEDS: glipiZIDE XL 2.5 MG TAB.ER.24 PO (08:46)
[2022-07-19] MEDS: Metoprolol Tartrate 25 MG TABLET PO (08:46)
[2022-07-19] MEDS: Heparin Sodium,Porcine 5,000 UNIT/ML VIAL 5000 UNIT SUBCUT (08:46)
[2022-07-19] MEDS: 0.9 % Sodium Chloride Flush 10 ML SYRINGE 5 ML IVFLUSH (08:54)
--- NOTE | 2022-07-19 11:01 | PM.PNNEP ---
Subjective Subjective Date of Service: 07/28/22 Interval history: Events noted Feels OK Physical Exam Vital Signs: Vital Signs: Last Vital Signs Temp 97.1 F 07/19/22 00:15 Pulse 87 07/19/22 00:15 Resp 18 07/19/22 00:15 BP 128/69 07/19/22 00:15 Pulse Ox 100 07/19/22 00:15 O2 Del Method Room Air 07/19/22 00:15 BMI result Body Mass Index 28.8 Const: General: cooperative; No confusion Orientation/consciousness: oriented to person, oriented to place and No confusion Neck: Neck: Yes supple Resp: Effort & Inspection: normal respiratory effort Auscultation: clear to auscultation bilaterally Cardio: Palpation: no palpable S3 and no palpable S4 Heart sounds: no rubs GI: Inspection: Yes normal to inspection Auscultation: normal bowel sounds Skin: General skin exam: no rashes or lesions noted Neuro: General: oriented to person, oriented to place, no focal motor deficits and No confusion Motor exam (neuro): no asterixis Sensory Exam: No Sensory deficit (Neuro) Objective Data Labs 07/17/22 05:12 07/19/22 05:38 Labs: Laboratory Results - last 24 hr 07/18/22 07/18/22 07/18/22 12:00 16:31 19:51 Sodium Potassium Chloride Carbon Dioxide Anion Gap BUN Creatinine Estim Creat Clear Calc Estimated GFR POC Glucose 167 H 236 H 252 H Random Glucose Calcium 07/19/22 07/19/22 05:38 07:25 Sodium 140 Potassium 4.3 Chloride 112 H Carbon Dioxide 17 L Anion Gap 15 BUN 41 H Creatinine 1.54 H Estim Creat Clear Calc 42.1 Estimated GFR 44 POC Glucose 144 H Random Glucose 130 H Calcium 8.7 Microbiology Microbiology Results: Microbiology 07/11/22 16:43 Blood - Venous Blood Culture - Final No growth after 5 days. 07/11/22 16:43 Blood - Venous Blood Culture - Final No growth after 5 days. 07/11/22 20:53 Foot - Right Gram Stain - Final 07/11/22 20:53 Foot - Right Routine Culture - Final Staphylococcus aureus Streptococcus viridans group Procedures Date of Service Date of Service: 07/19/22 Assessment & Plan Assessment and plan (1) Gram-negative bacteremia: Status: Inactive (2) CKD (chronic kidney disease) stage 3, GFR 30-59 ml/min: Status: Acute Plan 81-year-old man with a history of longstanding diabetes mellitus and hypertension with stage 3 chronic kidney disease. Baseline serum creatinine is probably around 1.6 mg/dL. He has a history of left-sided hydronephrosis. It is unclear how much of the obstruction is still contributing to his renal insufficiency. During this admission he did sustain acute kidney injury with the creatinine bumping up to 2.1. Creatinine has returned to baseline at this point. Repeat renal ultrasonogram to assess the hydronephrosis was un remarkable Recommendation check creatinine with the next 24-48 hours after the angiography Continue to avoid nephrotoxic agents and hypotension. Watch intake and output. Keep intake more than the output. Will arange for OP follow up Time Spent With Patient Time: Total time managing care of this patient today ____ minutes. Progress Note: Quality Stroke Does the patient have a stroke diagnosis?: No
[2022-07-19 11:16] LABS: Glucose, Whole Blood 308 mg/dL (60-115)
[2022-07-19] MEDS: Insulin Lispro 100 UNIT/ML 3 ML VIAL SUBCUT (12:02)
[2022-07-19] MEDS: Sodium Bicarbonate 650 MG TABLET PO (12:02)
[2022-07-19] MEDS: Ertapenem Sodium 1 GM in 0.9 % Sodium Chloride 50 ML IV (12:34)
--- NOTE | 2022-07-19 12:37 | W.MHC.F2F ---
Service Date Service Date: 07/19/22 Encounter Date of encounter: 07/19/22 Reasons for Services Signs and symptoms assessed: IV ABX via PICC wound care PT Reason for halfway: wound care, administration of IV, SQ, or IM injection, central line care, medication management, medication treatment and teach disease management Reason for physical therapy: home safety and mobility, therapeutic exercises, gait/transfer training, assess need for DME, ADL training and energy conservation MD Overseeing Care: Gene Eaton Homebound: Leaving the home is medically contraindicated at this time without the asist of a device and/or another person due th the listed conditions above and below. Reason homebound: immunosuppression / infection risk and weakness related to hospital stay Certification: Based on the above findings, I certify that this patient is confined to the home and needs intermittent halfway care, physical therapy and/or speech therapy, or continues to need occupational therapy. The patient is under my care, and I have initiated the establishment of the plan of care. The patient will be followed by a physician who will periodically review the plan of care. Time Spent With Patient Time: Total time managing care of this patient today ____ minutes.
--- NOTE | 2022-07-19 12:53 | P.PNVS_ITS ---
Subjective Subjective Date of Service: 07/19/22 Patient reports: no new complaints and feels better Interval history: Very pleasant 81-year-old gentleman postop day 1 status post right lower extremity SFA atherectomy and plasty. Reports to be doing fairly well. No interval issues. Pain well controlled. He is up in a chair eating lunch at the time of my visit. Also of note was at bedside. Physical Exam Vital Signs: Vital Signs: Last Vital Signs Temp 97.1 F 07/19/22 00:15 Pulse 87 07/19/22 00:15 Resp 18 07/19/22 00:15 BP 128/69 07/19/22 00:15 Pulse Ox 100 07/19/22 00:15 O2 Del Method Room Air 07/19/22 00:15 BMI result Body Mass Index 28.8 Const: General: cooperative, healthy appearing and no acute distress Orientation/consciousness: oriented to person, oriented to place and oriented to time HEENT: Head: Yes normal to inspection Neck: Carotids: no bruits Chest: Chest palpation & inspection: normal inspection of the chest Resp: Effort & Inspection: normal respiratory effort and able to speak in complete sentences Auscultation: clear to auscultation bilaterally Cardio: Rate: regular rate Heart sounds: S1 normal heart sound present and S2 normal heart sound present GI: Inspection: Yes normal to inspection Skin: Other: Right foot dressing clean dry intact General skin exam: no rashes or lesions noted Wounds: no wounds Neuro: General: oriented to person, oriented to place, oriented to time and CN's II-XI intact bilaterally Extrem: General: Yes normal to inspection, Yes full ROM and Yes no clubbing, cyanosis or edema Psych: Appearance: grossly normal and well kempt Speech and movement: Normal speech and movement present Affect: normal affect Progress Note: A&P Assessment and plan (1) PAD (peripheral artery disease): Status: Acute Assessment and Plan: In short patient has done extremely well status post right foot endovascular intervention. He will require aspirin and Plavix for 6 months. Darco offloading shoe was ordered for the patient. In addition wound care instruc tions were given for the patient. Patient can follow-up with me in approximately 2 weeks time as an outpatient. Thank you for allowing us to assist in his care. If there are any questions or concerns please do not hesitate to contact us. Time Spent With Patient Time: Total time managing care of this patient today ____ minutes. Procedures Date of Service Date of Service: 07/19/22 Quality Stroke Does the patient have a stroke diagnosis?: No VTE Prior VTE?: No VTE Risk Level:: Medical - moderate - high VTE Device Contraindication: Treatment Not Indicated VTE Drug Contraindication: N/A - Med Ordered
--- NOTE | 2022-07-19 13:13 | PM.DS ---
DS: Providers Provider Date of Service: 07/19/22 Date of admission: 07/11/22 20:20 Date of discharge: 07/19/22 Primary care physician: RADHA Bonilla Consults: 07/11/22 20:22 Consult to General Surgery [place]ine Consulting [place] [facility] Reason for consultation: nonhealing diabetic foot ulcer 07/13/22 12:57 Consult to Infectious Diseases Routine Consulting Provider: Elba Quiros Reason for consultation: foot ulcer Has provider been notified: No 07/14/22 13:50 Consult to Infectious Diseases Routine Consulting Provider: Elba Quiros Reason for consultation: skin ulcer Has provider been notified: Yes 07/14/22 14:41 Consult to Infectious Diseases Routine Consulting Provider: Elba Quiros Reason for consultation: ulcer Has provider been notified: No 07/15/22 12:28 Consult to Vascular Surgery Routine Consulting Provider: Gato Land Reason for consultation: rt foot ulcer Has provider been notified: No 07/16/22 08:44 Consult to Nephrology Routine Consulting Provider: [facility] Reason for consultation: clearance requested by IR for PICC placement due to CKD3 DS: Diagnosis Discharge Diagnosis (1) PAD (peripheral artery disease): Status: Acute (2) Diabetic osteomyelitis: Status: Acute (3) Ulcer of right 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: Status: Acute (4) CKD (chronic kidney disease) stage 3, GFR 30-59 ml/min: Status: Acute (5) Metabolic acidosis: Status: Acute DS: Summary Hospital Course Hospital Course: from admission H+P by hospitalist RADHA Porter, 07/11/22: 81-year-old male with history of uncontrolled [id number] type 2 diabetes, heart block s/p [facility] device, diastolic heart failure, htn, hld, and diabetic polyneuropathy presented to the ED for evaluation a of a right diabetic foot ulcer and cellulitis.? The patient has been following with a cyanide pot hardener who has debrided the ulcer and recommended he follow with a chin see [facility] for further management of the nonhealing wound.? He had been started on amoxicillin t.i.d. which he completed without improvement in the ulceration and extending erythema.? The patient is unsure how long the wound has been present on the plantar surface of the right foot as he has no sensation.? He denies any fevers but states he has had chills.? On arrival, patient is afebrile but tachycardic to 111.? There is a leukocytosis of 17.9.? Creatinine 2.18, baseline 1.60.? Electrolyte levels within normal limits.? Glucose 250.? Bilirubin 1.3, AST 39, ALT 40, CRP 17.03, ESR pending. Xray right foot showing soft tissue defect and extensive chronic appearing degenerative changes to midfoot and 1st MTP, cannot exclude osteomyelitis, MRI recommended. In the ED, given empiric zosyn. 81yo M with DM2 with polyneuropathy, heart block s/p PPM, diastolic CHF, HTN, HLD admitted for DM foot infection causing severe sepsis. Hospital course by problem: # chronic non-healing R foot ulcer with infection, osteomyelitis by definition of wound probing to bone - wound Cx grew MSSA + Strep viridans - per ID 6 wk of IV ertapenem, PICC placed 07/16/22 - s/p IV vanco + cefepime x3d, changed to chary 07/14; ID consulted, plan ertapenem for 6 wk, end date 08/23/22. PICC was placed on 07/16/22 and he was discharged on ertapenem. He needs weekly labs starting 07/23/22: CBCd, CRP, BMP. He also needs ID follow-up in 1 wk. - seen by Surgery, Dr Da Silva performed sharp excision debridement at bedside - severe sepsis resolved - Vascular Surgery consulted: to OR for angiogram as below # peripheral arterial disease - seen by Dr Land and taken to OR 07/18/22: 1. Ultrasound demonstrates appropriate femoral puncture.? Image of which was saved. 2. Aortogram demonstrates appropriate caliber aorta.? Minimal disease.? Appropriate take-off of the renals. 3. Iliac images demonstrate no significant disease but high-grade tortuosity on the right iliac 4. Right Leg ?Common femoral artery:? No significant disease ?Profundus Femoris:? No significant disease ?Superficial femoral artery:? Moderate stenosis at Luis Felipe's canal with immediate reconstitution ?Popliteal artery (p1,p2,p3):? No significant disease ?Anterior tibial artery:? Patent with strong runoff all the way to the ankle ?Peroneal artery:? Diminutive but flow all the way down to mid calf ?Posterior tibial artery:? Patent with strong runoff all the way down to the ankle ?Dorsalis pedis/plantar arch:? Incomplete Conclusion: 1. Successful atherectomy and plasty of right SFA 2. Anticoagulation status:? Will need to be on aspirin and Plavix for 6 months in duration Wound care upon discharge: Alginate, 2 x 2 and Kerlix wrap to be changed 3 times a week. Please call Dr. Land at [phone] for 2 week follow up of angiogram and wound # DEON/CKD3 # metabolic acidosis - Back to baseline after IV fluids. Nephrology followed. Due to metabolic acidosis, started on bicarbonate supplementation. Should follow-up with Nephrology in 2 weeks. Has history of hydronephrosis, which is still present on US. Also suggestion of bladder wall mass. He will need outpatient evaluation by Urology. Time Spent with Patient Time attestation: Total time managing care of this patient today __50__ minutes. Discharge coordination time: Greater than 30 minutes Quality: Safe Use of Opioids Does Pt have an Active Cancer Diagnosis on the Problem List?: No Quality: Stroke Does the patient have a stroke diagnosis?: No Physical Exam Vital Signs: Vital Signs: Last Vital Signs Temp 97.1 F 07/19/22 00:15 Pulse 87 07/19/22 00:15 Resp 18 07/19/22 00:15 BP 128/69 07/19/22 00:15 Pulse Ox 100 07/19/22 00:15 O2 Del Method Room Air 07/19/22 00:15 BMI result Body Mass Index 28.8 Gen: in no acute distress HEENT: sclera anicteric, moist mucus membranes Neck: supple Lungs: clear to auscultation bilaterally Heart: regular rate and rhythm, no murmurs Abd: soft, non-tender, non-distended Ext: no edema Skin: warm/well-perfused, plantar ulcer base of R 1st toe that probes to bone, erythema to dorsum of R foot Neuro: alert and oriented x3, no focal findings Psych: appropriate affect DS: Data Data Completed and Pending Completed studies during hospitalization [Text1]: Laboratory Results WBC 13.3 X10*3/uL (4.8-10.8) H 07/17/22 05:12 RBC 4.08 X10*6/uL (4.60-5.80) L 07/17/22 05:12 Hgb 12.3 g/dl (14.0-18.0) L 07/17/22 05:12 Hct 37.9 % (42.0-52.0) L 07/17/22 05:12 MCV 92.9 fL (80.0-98.0) 07/17/22 05:12 MCH 30.1 pg (27.0-33.0) 07/17/22 05:12 MCHC 32.5 g/dl (31.0-36.0) 07/17/22 05:12 RDW 13.1 % (11.0-16.0) 07/17/22 05:12 Plt Count 178 X10*3/uL (160-400) 07/17/22 05:12 MPV 12.1 fL (9.4-12.4) 07/17/22 05:12 Immature Gran % (Auto) 0.7 % (0.0-0.4) H 07/12/22 06:09 Neut % (Auto) 84.4 % (45-73) H 07/12/22 06:09 Lymph % (Auto) 7.2 % (20-40) L 07/12/22 06:09 Tompkins % (Auto) 6.7 % (2-11) 07/12/22 06:09 Eos % (Auto) 0.7 % (0-4) 07/12/22 06:09 Baso % (Auto) 0.3 % (0-2) 07/12/22 06:09 Lymph # (Auto) 1.0 X10*3/uL (1.2-4.9) L 07/12/22 06:09 Tompkins # (Auto) 0.9 X10*3/uL (0.1-1.2) 07/12/22 06:09 Eos # (Auto) 0.1 X10*3/uL (0.0-0.4) 07/12/22 06:09 Baso # (Auto) 0.0 X10*3/uL (0.0-0.2) 07/12/22 06:09 Abs Immat Gran (auto) 0.09 X10*3/uL (0.00-0.03) H 07/12/22 06:09 Absolute Neuts (auto) 11.6 x10*3/uL (2.0-8.3) H 07/12/22 06:09 Absolute Nucleated RBC 0.000 X10*3/uL (0.0-0.012) 07/17/22 05:12 Nucleated RBC % (auto) 0.0 /100WBC (0.0-0.2) 07/17/22 05:12 ESR 83 MM/HR (0-15) H 07/17/22 05:12 Sodium 140 mmol/L (135-145) 07/19/22 05:38 Potassium 4.3 mmol/L (3.3-5.1) 07/19/22 05:38 Chloride 112 mmol/L (96-108) H 07/19/22 05:38 Carbon Dioxide 17 mmol/L (22-29) L 07/19/22 05:38 Anion Gap 15 (12-20) 07/19/22 05:38 BUN 41 mg/dL (9-16) H 07/19/22 05:38 Creatinine 1.54 mg/dL (0.5-1.4) H 07/19/22 05:38 Estim Creat Clear Calc 42.1 07/19/22 05:38 Estimated GFR 44 07/19/22 05:38 POC Glucose 308 mg/dL (60-115) H 07/19/22 11:11 Random Glucose 130 mg/dL (60-115) H 07/19/22 05:38 Estimat Average Glucose 203 mg/dL 07/16/22 07:17 Hemoglobin A1c % 8.7 % 07/16/22 07:17 Lactic Acid 1.9 mmol/L (0.5-2.0) 07/11/22 16:42 Calcium 8.7 mg/dL (8.4-10.2) 07/19/22 05:38 Total Bilirubin 1.3 mg/dL (0.0-1.0) H 07/11/22 16:43 AST 39 U/L (5-37) H 07/11/22 16:43 ALT 40 U/L (0-40) 07/11/22 16:43 Alkaline Phosphatase 106 U/L (39-117) 07/11/22 16:43 C-Reactive Protein 8.26 mg/dL (< or = 0.50) H 07/17/22 05:12 Total Protein 6.9 g/dL (6.5-8.0) 07/11/22 16:43 Albumin 3.8 g/dL (3.5-5.0) 07/11/22 16:43 Urine Color Yellow 07/17/22 11:43 Urine Appearance Clear 07/17/22 11:43 Urine pH 5.5 (5.0-9.0) 07/17/22 11:43 Ur Specific Lucas 1.020 (1.005-1.025) 07/17/22 11:43 Urine Protein Trace mg/dL (Neg-Trace) 07/17/22 11:43 Urine Glucose (UA) >=1000 mg/dL (Negative) H 07/17/22 11:43 Urine Ketones Negative mg/dL (Negative) 07/17/22 11:43 Urine Blood Large (3+) (Negative) H 07/17/22 11:43 Urine Nitrite Negative (Negative) 07/17/22 11:43 Ur Leukocyte Esterase Small (1+) (Negative) H 07/17/22 11:43 Urine RBC 6-10 /HPF (0-2) H 07/17/22 11:43 Urine WBC 21-50 /HPF (0-5) H 07/17/22 11:43 Ur Squamous Epith Cells 3-5 /HPF (0-2) 07/17/22 11:43 Urine Bacteria None Seen (None Seen) 07/17/22 11:43 Hyaline Casts 0-2 /LPF (0-2) 07/17/22 11:43 U Random Total Protein 18 mg/dL (<12) H 07/17/22 11:43 Urine Creatinine 45.77 mg/dL 07/17/22 11:43 Random Vancomycin 11.3 mcg/mL (15-20) L 07/13/22 19:04 C. difficile Tox B Gene POSITIVE (Negative) A* 07/15/22 17:30 C. difficile Toxin A&B Negative (Negative) 07/15/22 17:30 C. difficile Interpret SEE NOTE 07/15/22 17:30 COVID-19 (ROM) Negative (Negative) 07/11/22 19:59 COVID-19 Clin Com See Note 07/11/22 19:59 Impressions Foot X-Ray 07/11/22 20:22 IMPRESSION: Soft tissue defect along the plantar aspect of the forefoot in the region of the first MTP joint. Extensive chronic appearing and degenerative changes to the midfoot and first MTP joint. I do not appreciate any definitive acute superimposed fracture or dislocation although evaluation of the first proximal phalanx is limited due to the obliquities of imaging. Unfortunately subtle osteomyelitis would be difficult to exclude with such extensive chronic changes present especially in light of the soft tissue defect. MRI may be more definitive. Foot CT 07/13/22 14:09 IMPRESSION: 1. Soft tissue wound at the plantar/medial aspect of the great toe MTP joint with associated soft tissue gas extending distally along the flexor hallucis longus tendon to the level of the proximal phalangeal base. No discrete fluid collections are identified, though sensitivity for fluid abscess is limited by CT, particularly in the absence of intravenous contrast. 2. Erosions at the first MTP joint are most likely due to gout or other crystalline or inflammatory arthropathies. Superimposed osteomyelitis is possible, though there is no definitive CT findings of osteomyelitis. 3. 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 Abd US [id number] 07/15/22 14:12 IMPRESSION: No evidence of hemodynamically significant peripheral arterial disease in the right lower extremity. Duplex Scan Lower Extremity Artery 07/15/22 14:12 IMPRESSION: No evidence of hemodynamically significant peripheral arterial disease in the right lower extremity. Discharge Plan Discharge Anticipated Discharge Date/Time: 07/19/22 12:40 Patient Disposition: Home Health Service Discharge Diagnosis: # chronic non-healing R foot ulcer with infection, osteomyelitis by definition of wound probing to bone # peripheral arterial disease # DEON/CKD3 with metabolic acidosis # possible bladder mass Referrals: Parker Mcgovern MD [Physician] - 2 Weeks Elba Quiros MD [Physician] - 1 Week Gato Land MD [Physician] - 2 Weeks Gene Eaton PA [Primary Care Provider] - 1 Week George Youngblood MD [Physician] - 3 Weeks Discharge Medications: New clopidogrel 75 mg Tablet 75 mg PO DAILY Qty: 30 0RF sodium bicarbonate 650 mg Tablet 650 mg PO BID Qty: 60 0RF aspirin 81 mg Tablet,Chewable 81 mg PO DAILY Qty: 30 0RF ertapenem 1 gram recon soln 1 g IV DAILY Qty: 35 0RF Continued glipizide 2.5 mg tablet extended release 24hr 2.5 mg PO DAILY Jardiance 10 mg tablet 10 mg PO DAILY Trulicity 4.5 mg/0.5 mL pen injector 4.5 mg subcut WE cholecalciferol (vitamin D3) 50 mcg (2,000 unit) Tablet 50 mcg PO DAILY metoprolol tartrate 25 mg tablet 25 mg PO BID simvastatin 40 mg tablet 40 mg PO BEDTIME (DME) OneTouch Verio test strips Strip See Rx Instructions Not Applicable TID Qty: 10 Rx Instructions: As directed pantoprazole 20 mg tablet,delayed release (DR/EC) 20 mg PO DAILY Discharge Orders: Discharge Order (Routine); Ordered 07/19/22 Ordered By: Jarred Roman Diet: Diabetic diet Activity on Discharge: As tolerated Stand Alone Forms: Patient Portal Discharge page Activity Restrictions/Additional Instructions: Wound care upon discharge: Alginate, 2 x 2 and Kerlix wrap to be changed 3 times a week. Please call Dr. Land at [phone] for 2 week follow up of angiogram and wound Care Plan Goals: cure of infection/ulcer Health Concerns: # chronic non-healing R foot ulcer with infection, osteomyelitis by definition of wound probing to bone # peripheral arterial disease # DEON/CKD3 with metabolic acidosis # possible bladder mass on US Plan of Treatment: ertapenem 1 g daily via PICC line, end date 08/23/22 weekly labs while on antibiotics, start 07/23/22: CBCd, BMP, CRP start aspirin 81 mg daily PLUS clopidogrel 75 mg daily start sodium bicarbonate 650 mg twice daily and follow up with Nephrology in 2 weeks avoid NSAIDs and other nephrotoxins follow up in [address] Quiros [Infectious Disease], [address] Land [Vascular Surgery] referral to UROLOGY for evaluation of bladder mass Please follow up with your primary care doctor within 1 week. Return to the hospital if you experience recurrent or worsening symptoms. Assessment: See Discharge Summary.
--- NOTE | 2022-07-19 13:48 | MHC.CM.PN ---
IMM 07/19/22 Male 81 DX DM foot ulcer discharged today with IV ABX. [facility] and [facility] will provide home services. Patients will provide transport home.
--- NOTE | 2022-07-19 16:21 | P.CDIM_ITS ---
PROVIDER RESPONSE TEXT: To clarify, the appropriate diagnosis supported by the clinical indicators: Acute osteomyelitis QUERY TEXT: PHYSICIAN'S DOCUMENTATION REQUEST Date of Query: 07/17/2022 08:50 AM EDT Patient Name: Jacques Guadarrama Admit Date: 07/12/2022 Dear Jarred Roman, A review of the medical record indicates additional documentation may be needed. Please review below and update the documentation accordingly. Clinical Indicators: Surgery note 5/1: The concern here is that it penetrates down to bone, Clearly there is underlying Os teomyelitis. ID: IV Ertapenem for six weeks even though osteomyelitis cant be definitively proven. PN: Assessment/plan: Infected chronic non-healing right foot ulcer related to diabetes and acute cell ulitis, XR foot did not exclude osteomyelitis. Underweight sharp excisional debridement, exposed bone in one area, likely metatarsal head. PICC line ordered for six weeks antibiotics. Based on the above, please clarify in the Progress Notes further specificity regarding the type of Os teomyelitis. Acute osteomyelitis Subacute osteomyelitis Chronic osteomyelitis Acute on chronic osteomyelitis Other Unable to determine Other (explain) Clinically unable to determine (explain) Thank you, Kathia Ricks, CCS, CDIS Use of terms such as suspected, likely, concern for, or probable (associated with a specific diagnosi s that is being evaluated, monitored, or treated as if it exists) are acceptable and can be coded in the inpatient se tting, when documented at the time of discharge. Please use your independent medical judgment in providing your response. THIS QUERY IS PART OF THE PERMANENT MEDICAL RECORD
== END 2022-07-19 15:01 | disposition home health service (06) | DRG 854 ==
LOC: HO.ED 19:57 → HO.EDOVER 20:32 → HO.IMC 07-12 10:54 → HO.S3 07-14 16:28
PROVIDERS: Hospitalist; Internal Medicine Hypertension Specialist; Physician Assistant; Surgery; Surgery Vascular Surgery; Admitting Provider Physician Assistant; Emergency Provider Emergency Medicine Emergency Medical Services; PCP Physician Assistant Medical; Visit Provider Family Medicine
PROC: 02HV33Z Insertion of Infusion Device into Superior Vena Cava, Percutaneous Approach (ICD-10-PCS; principal; 2022-07-16 16:00)
PROC: 047K3Z1 Dilation of Right Femoral Artery using Drug-Coated Balloon, Percutaneous Approach (ICD-10-PCS; principal; 2022-07-18 07:30)
DX: A41.9 Sepsis, unspecified organism (principal); E11.52 Type 2 diabetes mellitus with diabetic peripheral angiopathy with gangrene; I13.0 Hypertensive heart and chronic kidney disease with heart failure and stage 1 through stage 4 chronic kidney disease, or unspecified chronic kidney disease; I50.32 Chronic diastolic (congestive) heart failure; N17.9 Acute kidney failure, unspecified; L03.115 Cellulitis of right lower limb; L97.516 Non-pressure chronic ulcer of other part of right foot with bone involvement without evidence of necrosis; I70.261 Atherosclerosis of native arteries of extremities with gangrene, right leg; M86.171 Other acute osteomyelitis, right ankle and foot; N18.30 Chronic kidney disease, stage 3 unspecified; E11.22 Type 2 diabetes mellitus with diabetic chronic kidney disease; E11.65 Type 2 diabetes mellitus with hyperglycemia; E11.69 Type 2 diabetes mellitus with other specified complication; E11.42 Type 2 diabetes mellitus with diabetic polyneuropathy; R65.20 Severe sepsis without septic shock; I45.9 Conduction disorder, unspecified; E11.628 Type 2 diabetes mellitus with other skin complications; E78.5 Hyperlipidemia, unspecified; B95.4 Other streptococcus as the cause of diseases classified elsewhere; B95.61 Methicillin susceptible Staphylococcus aureus infection as the cause of diseases classified elsewhere; E11.610 Type 2 diabetes mellitus with diabetic neuropathic arthropathy; Z22.1 Carrier of other intestinal infectious diseases; Z95.0 Presence of cardiac pacemaker; Z88.8 Allergy status to other drugs, medicaments and biological substances; Z79.84 Long term (current) use of oral hypoglycemic drugs; Z79.899 Other long term (current) drug therapy
CPT/HCPCS: 36415; 36573; 37225; 73630; 73700; 76775; 76937; 80048; 80053; 80202; 81001; 81003; 82565; 82947; 83036; 83605; 84156; 85025; 85027; 85652; 86140; 87040; 87070; 87147; 87205; 87324; 87493; 87635; 93923; 93926; 99152; 99153; 99285; C1714; C1725; C1751; C1760; C1769; C1884; C1887; J0692; J1335; J1643; J2185; J2543; J3370

== ENCOUNTER 2022-07-17 12:45 | Outpatient (RCR) | payer MEDICARE, SELFPAY | END 2022-09-03 16:00 | disposition home or self-care (01) | LOC: HO.WCC 12:45 | PROVIDERS: PCP Physician Assistant Medical; Visit Provider Surgery | DX: E11.621 Type 2 diabetes mellitus with foot ulcer (principal); L97.514 Non-pressure chronic ulcer of other part of right foot with necrosis of bone; E11.69 Type 2 diabetes mellitus with other specified complication; M86.471 Chronic osteomyelitis with draining sinus, right ankle and foot; E11.22 Type 2 diabetes mellitus with diabetic chronic kidney disease; I12.9 Hypertensive chronic kidney disease with stage 1 through stage 4 chronic kidney disease, or unspecified chronic kidney disease; N18.30 Chronic kidney disease, stage 3 unspecified; C67.9 Malignant neoplasm of bladder, unspecified; L08.89 Other specified local infections of the skin and subcutaneous tissue; Z79.01 Long term (current) use of anticoagulants | CPT/HCPCS: 11043; 11044; 87070; 87073; 87077; 87186; 87205; 99212 ==

== ENCOUNTER 2022-07-25 11:18 | Outpatient (REF) | payer MEDICARE, SELFPAY ==
[2022-07-25 11:20] LABS: MANUAL DIFF FLAG NO
[2022-07-25 11:40] LABS: Basophils Absolute Auto 0.1 X10*3/uL (0.0-0.2); Basophils Percent Auto 0.6 % (0-2); Eosinophils Absolute Auto 0.2 X10*3/uL (0.0-0.4); Eosinophils Percent Auto 1.7 % (0-4); Hematocrit 34.7 % (42.0-52.0); Imm Gran Abs Auto 0.07 X10*3/uL (0.00-0.03); Imm Gran Pct Auto 0.7 % (0.0-0.4); Lymphocytes Percent Auto 9.6 % (20-40); Mean Corpuscular HGB Conc 31.7 g/dl (31.0-36.0); Mean Corpuscular Hemoglobin 29.7 pg (27.0-33.0); Mean Corpuscular Volume 93.8 fL (80.0-98.0); Mean Platelet Volume 11.8 fL (9.4-12.4); Monocytes Absolute Auto 0.6 X10*3/uL (0.1-1.2); Monocytes Percent Auto 5.8 % (2-11); Neutrophils Absolute Auto 8.8 x10*3/uL (2.0-8.3); Neutrophils Percent Auto 81.6 % (45-73); Platelet Count 191 X10*3/uL (160-400); Red Cell Distribution Width 13.9 % (11.0-16.0); White Blood Count 10.7 X10*3/uL (4.8-10.8)
[2022-07-25 12:44] LABS: Anion Gap 14 (12-20); Blood Urea Nitrogen 47 mg/dL (9-16); C Reactive Protein 3.24 mg/dL (< or = 0.50); Calcium 8.9 mg/dL (8.4-10.2); Carbon Dioxide 26 mmol/L (22-29); Chloride 107 mmol/L (96-108); Estimated Glomerular Filt Rate 25; Glucose Random 251 mg/dL (60-115); Potassium 4.9 mmol/L (3.3-5.1); Sodium 142 mmol/L (135-145)
== END 2022-07-25 11:19 | disposition home or self-care (01) ==
LOC: HO.HVNA 11:18
PROVIDERS: Visit Provider Internal Medicine
DX: E11.621 Type 2 diabetes mellitus with foot ulcer (principal)
CPT/HCPCS: 36415; 80048; 85025; 86140

== ENCOUNTER 2022-08-01 00:40 | Inpatient (IN) | payer MEDICARE, SELFPAY ==
[2022-08-01] VITALS (10 sets, daily range): BP systolic 110–135; BP diastolic 56–71; PULSE 20–102; RESP 14–20; TEMP 36–37.2; O2SAT 97–99; BMI 28.8; BMI 26.2
--- NOTE | ~2022-08-01 | US_ITS ---
EXAMINATION: US RETROPERITONEAL LIMITED (RENAL ONLY) CLINICAL INFORMATION: Acute kidney injury. COMPARISON: 07/18/2022 TECHNIQUE: Ultrasound of the kidneys was performed FINDINGS: RIGHT KIDNEY: 11.0 x 6.9 x 6.0 cm (SAG x AP x TRV). The kidney is normal in size, contour, and echogenicity. Renal cortical thickness is normal. No calculi. No moderate right-sided hydronephrosis is present, unchanged from prior.. 2 benign Bosniak class I renal cysts are seen at the lower pole the largest 1.8 cm. No additional imaging or follow-up is needed. No solid renal masses. LEFT KIDNEY: 9.6 x 5.3 x 5.1 cm (SAG x AP x TRV). The kidney is normal in size, contour, and echogenicity. Renal cortical thickness is normal. No calculi. There is moderate to marked hydronephrosis is noted slightly worse when compared to prior. The proximal left ureter is seen to be dilated at 2.2 cm. 1 benign Bosniak class I renal cyst is seen at the lower pole the largest 1.8 cm. No additional imaging or follow-up is needed. No solid renal masses. US/US renal BI IMPRESSION: Bilateral hydronephrosis, left greater than right. This is slightly worse on the left when compared to 07/18/2022.
--- NOTE | ~2022-08-01 | CT_ITS ---
EXAMINATION: CT ABDOMEN AND PELVIS WITHOUT CONTRAST CLINICAL INFORMATION: Gross hematuria COMPARISON: Previous renal ultrasound most recent 08/01/[address] of the abdomen and pelvis May 2020 TECHNIQUE: Multidetector volumetric imaging was performed from the superior aspect of the liver through the pubic symphysis. Sagittal and coronal reformatted images were obtained on the technologist's workstation. This CT examination was performed using dose optimization techniques as appropriate, variously including the following: *Automated exposure control *Adjustment of mA and/or kV according to patient size (this includes techniques or standardized protocols for targeted exams where dose is matched to indication/reason for exam; i.e. extremities or head) *Use of iterative reconstruction technique DLP: 753 mGy-cm FINDINGS: LUNG BASES: Small bilateral pleural effusions. Trace pericardial effusion. Coronary artery calcification and pacemaker lead. LIVER, GALLBLADDER, AND BILIARY TREE: Cirrhotic liver. No focal liver lesion. Dilated gallbladder. No gallstone seen by CT. No biliary duct dilatation. Small amount of ascites. PANCREAS: Unremarkable. SPLEEN: Unremarkable. ADRENAL GLANDS: Unremarkable. KIDNEYS AND URETERS: Bilateral renal cysts. No imaging follow-up recommended. Mild left hydronephrosis. The left ureter does not appear dilated and there may be a left UPJ obstruction. This is similar to previous exam. There is a left mid pole renal stone measuring 2 x 4 mm. BLADDER: Cao catheter in the bladder. The bladder is empty. Question areas of focal bladder wall thickening superiorly and along the right lateral bladder wall. GASTROINTESTINAL TRACT: Severe constipation. The very distal colon and rectum are not included in the [id number]. There is question of mild wall thickening of the distal colon and stranding of the fat in the presacral space questionable for stercoral colitis. Diverticulosis of the colon. No evidence of diverticulitis. Dilated fluid-filled small bowel. No transition zone seen in appearance is questionable for an ileus. Small bowel is unremarkable. There may be mild wall thickening of the stomach. The appendix is not seen. ABDOMINAL WALL: Umbilical hernia containing fat. LYMPH NODES: Normal. VASCULAR: Atherosclerotic disease. No aneurysm. PELVIC VISCERA: Unremarkable. OSSEOUS STRUCTURES: Severe degenerative changes of the spine. Loss of height of the anterior superior endplate of the L1 vertebral body questionable for mild compression fracture versus Schmorl's node. Surgical hardware in between the L3-L4 spinous processes. Left hip replacement. Arthritis at the right hip joint. CT/CT abdomen pelvis wo IV con IMPRESSION: Cirrhotic-appearing liver. Small amount of ascites. Dilated gallbladder. No gallstone seen by CT. No biliary duct dilatation. Bilateral renal cysts. No imaging follow-up recommended. Left hydronephrosis and UPJ obstruction. Left renal stone. Cao catheter in the bladder. The bladder is empty. Question focal bladder wall thickening along the dome and right lateral bladder wall. Dilated fluid-filled proximal small bowel probably representing an ileus. Severe constipation and question stercoral colitis. Fleischner guidelines were followed.
[2022-08-01 01:11] LABS: MANUAL DIFF FLAG NO
[2022-08-01 01:12] LABS: Basophils Absolute Auto 0.1 X10*3/uL (0.0-0.2); Basophils Percent Auto 0.4 % (0-2); Eosinophils Absolute Auto 0.1 X10*3/uL (0.0-0.4); Eosinophils Percent Auto 0.6 % (0-4); Hematocrit 26.9 % (42.0-52.0); Imm Gran Abs Auto 0.07 X10*3/uL (0.00-0.03); Imm Gran Pct Auto 0.5 % (0.0-0.4); Lymphocytes Absolute Auto 0.6 X10*3/uL (1.2-4.9); Lymphocytes Percent Auto 4.3 % (20-40); Mean Corpuscular HGB Conc 33.5 g/dl (31.0-36.0); Mean Corpuscular Hemoglobin 30.1 pg (27.0-33.0); Mean Platelet Volume 10.5 fL (9.4-12.4); Monocytes Absolute Auto 0.9 X10*3/uL (0.1-1.2); Monocytes Percent Auto 6.1 % (2-11); Neutrophils Absolute Auto 12.3 x10*3/uL (2.0-8.3); Neutrophils Percent Auto 88.1 % (45-73); Platelet Count 238 X10*3/uL (160-400); Red Blood Count 2.99 X10*6/uL (4.60-5.80); Red Cell Distribution Width 14.3 % (11.0-16.0)
[2022-08-01 01:28] LABS: Alanine Aminotransferase 15 U/L (0-40); Albumin Level 3.1 g/dL (3.5-5.0); Alkaline Phosphatase 93 U/L (39-117); Anion Gap 16 (12-20); Aspartate Amino Transferase 25 U/L (5-37); Bilirubin Direct 0.2 mg/dL (0.0-0.5); Bilirubin Total 0.6 mg/dL (0.0-1.0); Blood Urea Nitrogen 68 mg/dL (9-16); Calcium 8.7 mg/dL (8.4-10.2); Carbon Dioxide 21 mmol/L (22-29); Chloride 107 mmol/L (96-108); Creatinine Clr Calc Pharmacy 18.5; Estimated Glomerular Filt Rate 17; Glucose Random 246 mg/dL (60-115); Lipase 47 U/L (8-78); Sodium 139 mmol/L (135-145)
--- NOTE | 2022-08-01 02:42 | ED.MALEGU ---
HPI - Male Genitourinary General Chief complaint: Urogenital-Male Stated complaint: difficulty urinating Time Seen by Provider: 08/01/22 01:58 Source: patient and family () Mode of arrival: EMS Limitations: no limitations History of Present Illness HPI Narrative: 81-year-old male who presents emergency department for evaluation of suprapubic abdominal pain and inability to urinate. Patient states that he ate supper at around 19:30 hours and shortly after eating he had difficulty urinating. He states that he was peeing small amounts of bloody urine he then developed suprapubic discomfort which got progressively. The patient then called an ambulance and was brought to emergency department for evaluation. I did review the patient's in-patient record from 07/11/2022 until 07/18/2022. Patient was admitted for a chronic right diabetic foot ulcer with cellulitis degree strep viridans. Patient was discharged on IV ertapenem for 6 weeks. Also during his hospitalization he had his right superficial femoral artery arthroplasty and he was started on Plavix. 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 According to his , the patient has been very tired and has been sleeping constantly he has also been very weak since being discharged from the hospital. Patient states that he has noted dark stools but he is on iron he states he takes iron every other day for 2 years. Related Data Home Medications Medication Instructions Recorded Confirmed metoprolol tartrate 25 mg tablet 25 mg PO BID 03/17/20 07/11/22 simvastatin 40 mg tablet 40 mg PO BEDTIME 03/17/20 07/11/22 blood sugar diagnostic (OneTouch #10 ea 11/11/20 07/11/22 Verio test strips) pantoprazole 20 mg tablet,delayed 20 mg PO DAILY 11/11/20 07/11/22 release glipizide 2.5 mg tablet, extended 2.5 mg PO DAILY 12/19/20 07/11/22 release 24 hr cholecalciferol (vitamin D3) 50 50 mcg PO DAILY 07/11/22 07/11/22 mcg (2,000 unit) tablet dulaglutide 4.5 mg/0.5 mL 4.5 mg subcut WE 07/11/22 07/11/22 subcutaneous pen injector (Trulicity) empagliflozin 10 mg tablet 10 mg PO DAILY 07/11/22 07/11/22 (Jardiance) Previous Rx's Medication Instructions Recorded aspirin 81 mg chewable tablet 81 mg PO DAILY #30 tabs 07/19/22 clopidogrel 75 mg tablet 75 mg PO DAILY #30 tabs 07/19/22 ertapenem 1 gram solution for 1 g IV DAILY #35 ea 07/19/22 injection sodium bicarbonate 650 mg tablet 650 mg PO BID #60 tabs 07/19/22 Allergies Allergy/AdvReac Type Severity Reaction Status Date / Time lisinopril [LISINOPRIL] Allergy Severe ANGIOEDEMA Verified 08/01/22 00:51 Review of Systems Review of Systems: Yes all other systems are reviewed and are negative [facility] Past Medical History [facility] Narrative: Social history: He lives at home with his . He denies tobacco, alcohol and drug use. Medical History Back pain Decubitus ulcer, heel Diabetes mellitus Heart block History of COVID-19 Hyperlipidemia Hypertension Iron deficiency anemia Ulcer of left heel Urinary retention Surgical History History of back surgery History of esophagogastroduodenoscopy History of left hip replacement Hx of cataract extraction Hx of colonoscopy Family History Family History Brother Testicular cancer Social History Social History Household Members: Spouse Household Members Other:: 2 Housing: House Do you presently have visiting nurse or other home services: No Alcohol intake: former Patient Tobacco Use Status: Former Tobacco user Tobacco use type: Cigarette Smoked in Last 30 Days: No Advance Directives: Yes Advance Directives on File: Yes Advance Directives Date on File: 07/12/22 service: No Current occupational status: retired Physical Exam Vital Signs: Vital Signs: Last Vital Signs Temp 98.1 F 08/01/22 03:30 Pulse 89 08/01/22 03:30 Resp 14 08/01/22 03:30 BP 123/60 08/01/22 03:30 Pulse Ox 97 08/01/22 03:30 O2 Del Method Room Air 08/01/22 03:30 BMI result Body Mass Index 28.8 Const: General: cooperative and no acute distress Orientation/consciousness: oriented to person and oriented to place Limitations: no limitations HEENT: Head: Yes normal to inspection, Yes normocephalic and Yes atraumatic Ears: external ears normal General nose exam: Normal external nose present Face and sinus: Yes normal facial exam Mouth: Normal oral and palatal mucosa present Throat: Yes posterior oropharynx normal Eyes: General: appearance normal, both eyes and all related structures Pupils: Equal, round and reactive pupils present Neck: Neck: Yes normal visual inspection, Yes no lymphadenopathy, Yes trachea midline and Yes supple Chest: Chest palpation & inspection: normal inspection of the chest and normal palpation of entire chest wall Resp: Effort & Inspection: normal respiratory effort and able to speak in complete sentences Auscultation: clear to auscultation bilaterally Cardio: Rate: regular rate Rhythm: regular rhythm Heart sounds: S1 normal heart sound present, S2 normal heart sound present and no murmurs GI: Other: Patient's abdomen initially was distended any had significant tenderness palpated patient over his suprapubic area. After Cao catheter placement his distension and tenderness resolved. Rectal exam revealed dark black stool which was strongly Hemoccult positive. : Other: The patient has erythema to his scrotum bilaterally which extends to intertriginous areas consistent with a fungal infection. Patient had blood in his underwear from his hematuria. General: Yes no CVA tenderness Back/Spine/Pelvis: Back: no CVA tenderness Skin: General skin exam: no rashes or lesions noted Neuro: General: oriented to person and oriented to place Cranial nerves: Yes CN's II-XII intact bilaterally and Yes Equal, round and reactive pupils present Cognition (Neuro): normal cognition Motor exam (neuro): 5/5 motor strength present throughout Extrem: Other: The erythema of the patient's right foot seems to have resolved, the patient has a chronic appearing ulcer which has a foul odor to but does not appear to be draining purulent material General: Yes normal to inspection Psych: Appearance: grossly normal Speech and movement: Normal speech and movement present Affect: normal affect Attitude: cooperative Thought process: Normal thought process present Thought content: Normal thought content present Medications Administered Discontinued Medications Generic Name Dose Route Start Last Admin Trade Name Freq PRN Reason Stop Dose Admin Bacitracin 1 appl 05/17/23 03:13 08/01/22 03:41 Bacitracin Oint 0.9 Gm Packet TOPICAL 08/01/22 03:14 1 appl ONCE ONE Administration Protocol Pantoprazole Sodium 40 mg 08/01/22 03:35 08/01/22 03:49 Pantoprazole Sodium 40 Mg/10 Ml Vial IVPUSH 08/01/22 03:36 40 mg ONCE ONE Administration Medical Decision Making Medical Decision Making [facility] Narrative: 81-year-old male who presented to the emergency department for evaluation of inability urinate, hematuria and suprapubic abdominal pain. On physical examination the patient has suprapubic tenderness and was distended. Bladder scan revealed greater than 500 cc of urine in his bladder. Cao catheter was inserted the patient had bloody urine any drained approximately 800 cc of urine. 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 Patient's rectal examination revealed dark black stool which was strongly Hemoccult positive. The patient right foot that not have any significant erythema and the ulcer does not appear to be draining purulent material. 0322: My interpretation the patient's laboratory evaluation is as follows: Elevated WBC 03467, anemia with an H&H of 9 and 26.9 this is new compared to 07/11/2022 of 13 and 41.5 and 07/25/2022 H&H was 11 and 34. Patient's MCV is normal. Patient's BUN and creatinine are elevated at 68 and 3.5 this is above his baseline. Glucose was elevated 246. LFTs were normal. Total protein and albumin were low at 6.0 and 3.1. Urinalysis is pending. The patient's abdominal pain was secondary to urinary retention most likely caused by his hematuria which is most likely related to his bladder mass. The patient's anemia is most likely caused by GI bleed, patient was started on Plavix after his right SFA arthroplasty which may be causing a GI bleed whether maybe another etiology. I did order 1 unit of packed red blood cells transfused over 4 hours. Patient also has an intertriginous candidiasis infection of the groin involving the scrotum bilaterally. I will discuss admission with the covering hospitalist. 0446: I did discuss the patient's presentation with the covering hospitalist, Dr. Kimbrough and she accepted the patient to the hospital service. Differential Diagnosis Differential diagnosis for urinary retention include was not limited to clot from hematuria, bladder tumor, urinary tract infection, prostate cancer, prostatitis, Differential diagnosis for GI bleed includes was not limited to gastric ulcer, peptic ulcer disease, Plavix therapy, Admission/Observation Consideration of admission/observation: Escalation of care including admission/observation considered Consult Healthcare Provider Management of the patient was discussed with: Hospitalist Lab Data [facility] Lab Attestation statement: I reviewed the patient's lab results. See MDM 08/01/22 01:07 08/01/22 01:07 Labs: Lab Results 08/01/22 08/01/22 08/01/22 Range/Units 01:07 01:07 03:27 WBC 14.0 H (4.8-10.8) X10*3/uL RBC 2.99 L (4.60-5.80) X10*6/uL Hgb 9.0 L (14.0-18.0) g/dl Hct 26.9 L D (42.0-52.0) % MCV 90.0 (80.0-98.0) fL MCH 30.1 (27.0-33.0) pg MCHC 33.5 (31.0-36.0) g/dl RDW 14.3 (11.0-16.0) % Plt Count 238 (160-400) X10*3/uL MPV 10.5 (9.4-12.4) fL Immature Gran % (Auto) 0.5 H (0.0-0.4) % Neut % (Auto) 88.1 H (45-73) % Lymph % (Auto) 4.3 L (20-40) % [place] % (Auto) 6.1 (2-11) % Eos % (Auto) 0.6 (0-4) % Baso % (Auto) 0.4 (0-2) % Lymph # (Auto) 0.6 L (1.2-4.9) X10*3/uL [place] # (Auto) 0.9 (0.1-1.2) X10*3/uL Eos # (Auto) 0.1 (0.0-0.4) X10*3/uL Baso # (Auto) 0.1 (0.0-0.2) X10*3/uL Abs Immat Gran (auto) 0.07 H (0.00-0.03) X10*3/uL Absolute Neuts (auto) 12.3 H (2.0-8.3) x10*3/uL Absolute Nucleated RBC 0.000 (0.0-0.012) X10*3/uL Nucleated RBC % (auto) 0.0 (0.0-0.2) /100WBC Sodium 139 (135-145) mmol/L Potassium 5.0 (3.3-5.1) mmol/L Chloride 107 (96-108) mmol/L Carbon Dioxide 21 L (22-29) mmol/L Anion Gap 16 (12-20) BUN 68 H (9-16) mg/dL Creatinine 3.50 H (0.5-1.4) mg/dL Estim Creat Clear Calc 18.5 Estimated GFR 17 Random Glucose 246 H (60-115) mg/dL Calcium 8.7 (8.4-10.2) mg/dL Total Bilirubin 0.6 (0.0-1.0) mg/dL Direct Bilirubin 0.2 (0.0-0.5) mg/dL AST 25 (5-37) U/L ALT 15 (0-40) U/L Alkaline Phosphatase 93 (39-117) U/L Total Protein 6.0 L (6.5-8.0) g/dL Albumin 3.1 L (3.5-5.0) g/dL Lipase 47 (8-78) U/L Urine Color Urine Appearance Urine pH (5.0-9.0) Ur Specific [place] (1.005-1.025) Urine Protein (Neg-Trace) mg/dL Urine Glucose (UA) (Negative) mg/dL Urine Ketones (Negative) mg/dL Urine Blood (Negative) Urine Nitrite (Negative) Ur Leukocyte Esterase (Negative) Urine RBC (0-2) /HPF Urine WBC (0-5) /HPF Ur Squamous Epith Cells (0-2) /HPF Urine Bacteria (None Seen) Hyaline Casts (0-2) /LPF Stool Occult Blood (NEGATIVE) Blood Type O Positive Antibody Screen NEGATIVE Crossmatch See Detail 08/01/22 08/01/22 Range/Units 03:29 03:29 WBC (4.8-10.8) X10*3/uL RBC (4.60-5.80) X10*6/uL Hgb (14.0-18.0) g/dl Hct (42.0-52.0) % MCV (80.0-98.0) fL MCH (27.0-33.0) pg MCHC (31.0-36.0) g/dl RDW (11.0-16.0) % Plt Count (160-400) X10*3/uL MPV (9.4-12.4) fL Immature Gran % (Auto) (0.0-0.4) % Neut % (Auto) (45-73) % Lymph % (Auto) (20-40) % [place] % (Auto) (2-11) % Eos % (Auto) (0-4) % Baso % (Auto) (0-2) % Lymph # (Auto) (1.2-4.9) X10*3/uL [place] # (Auto) (0.1-1.2) X10*3/uL Eos # (Auto) (0.0-0.4) X10*3/uL Baso # (Auto) (0.0-0.2) X10*3/uL Abs Immat Gran (auto) (0.00-0.03) X10*3/uL Absolute Neuts (auto) (2.0-8.3) x10*3/uL Absolute Nucleated RBC (0.0-0.012) X10*3/uL Nucleated RBC % (auto) (0.0-0.2) /100WBC Sodium (135-145) mmol/L Potassium (3.3-5.1) mmol/L Chloride (96-108) mmol/L Carbon Dioxide (22-29) mmol/L Anion Gap (12-20) BUN (9-16) mg/dL Creatinine (0.5-1.4) mg/dL Estim Creat Clear Calc Estimated GFR Random Glucose (60-115) mg/dL Calcium (8.4-10.2) mg/dL Total Bilirubin (0.0-1.0) mg/dL Direct Bilirubin (0.0-0.5) mg/dL AST (5-37) U/L ALT (0-40) U/L Alkaline Phosphatase (39-117) U/L Total Protein (6.5-8.0) g/dL Albumin (3.5-5.0) g/dL Lipase (8-78) U/L Urine Color Straw Urine Appearance Hazy Urine pH 7.0 (5.0-9.0) Ur Specific [place] 1.020 (1.005-1.025) Urine Protein 300 (3+) H (Neg-Trace) mg/dL Urine Glucose (UA) >=1000 H (Negative) mg/dL Urine Ketones Trace (Negative) mg/dL Urine Blood Large (3+) H (Negative) Urine Nitrite Positive H (Negative) Ur Leukocyte Esterase Trace H (Negative) Urine RBC >20 H (0-2) /HPF Urine WBC 6-10 H (0-5) /HPF Ur Squamous Epith Cells 3-5 (0-2) /HPF Urine Bacteria Trace (None Seen) Hyaline Casts 0-2 (0-2) /LPF Stool Occult Blood POSITIVE (NEGATIVE) Blood Type Antibody Screen Crossmatch Independent Interpretation I performed an independent interpretation of an: EKG Interpretation: My independent interpretation patient's 12 EKG is as follows: Atrial sensed paced rhythm with a rate of 88 Independent Historian Clinical information obtained from an independent historian. History obtained from or confirmed by: Spouse External Record Review External record reviewed: Inpatient record Discharge Plan Discharge Clinical Impression: Acute urinary retention, Bladder mass, Acute GI bleeding, Anemia, Infection of right foot, Intertriginous candidiasis Hematuria Qualifiers: Hematuria type: gross Qualified Code(s): R31.0 - Gross hematuria
--- NOTE | 2022-08-01 03:10 | PC.NURSE ---
16fr loya catheter placed and 800cc blood tinged urine immediately drained. pt reports relief of abdominal discomfort. MD at bedside assessing pt. will CTM.
--- NOTE | 2022-08-01 03:30 | ECG_ITS ---
Test Reason : SOB Blood Pressure : / mmHG Vent. Rate : 088 BPM Atrial Rate : 088 BPM P-R Int : 158 ms QRS Dur : 186 ms QT Int : 464 ms P-R-T Axes : 010 -54 098 degrees QTc Int : 561 ms Atrial-sensed ventricular-paced rhythm Abnormal ECG When compared with ECG of 25-NOV-2020 15:03, Electronic ventricular pacemaker has replaced Sinus rhythm Vent. rate has increased BY 48 BPM Referred By: Toni Tyson Electronically Signed By:Ciaran Clay
[2022-08-01 03:35] LABS: OBS Int Ctl Valid YES; OBS1 POSITIVE (NEGATIVE)
--- NOTE | 2022-08-01 03:40 | PC.NURSE ---
wound to R foot redressed, bacitracin and new gauze applied
[2022-08-01] MEDS: Bacitracin Oint 0.9 GM PACKET 1 APPL TOPICAL (03:41)
[2022-08-01 03:47] LABS: Appearance Urine Hazy; Color Urine Straw; Glucose Urine UA >=1000 mg/dL (Negative); Leukocyte Esterase Urine Trace (Negative); Nitrite Urine Positive (Negative); UMIC TRIGGER UACC YES; Urine Blood Large (3+) (Negative); Urine Ketones Trace mg/dL (Negative); Urine Protein 300 (3+) mg/dL (Neg-Trace)
[2022-08-01] MEDS: Pantoprazole Sodium 40 MG/10 ML VIAL IVPUSH ×2 (03:49→16:47)
[2022-08-01 03:53] LABS: Bacteria Urine Trace (None Seen); Hyaline Casts Urine 0-2 /LPF (0-2); RBC Urine >20 /HPF (0-2); UACC Culture Trigger YES
--- NOTE | 2022-08-01 04:45 | PC.NURSE ---
consent signed for blood transfusion. pt to receive 1unit rbcs for low H&H trending downwards, positive occult stool.
--- NOTE | 2022-08-01 05:38 | PC.NURSE ---
blood transfusion started @05. verified with second RN Ethel. blood running through #20g iv line RFA. will CTM
--- NOTE | 2022-08-01 05:38 | PC.NURSE ---
blood transfusion started @533. verified with second RN Ethel. blood running through pt picc line. will CTM
--- NOTE | 2022-08-01 07:01 | PM.IMHP ---
History of Present Illness Date of Service: 08/01/22 Chief Complaint: hematuria any year old male with past medical history of type 2 diabetes, diastolic heart failure history of CKD stage 3, diabetic foot ulcer follows with Podiatry, history of heart block, HTN, HLD, history of urinary retention, comes into the hospital with complaints of suprapubic pain, urinary retention. And blood in the urine. started around 19:00, which started with difficulty urinating came a he has small amount of bloody urine, then developed suprapubic pain. patient denies any melena, hematochezia, no hematemesis, hemoptysis, Of note patient was admitted to the hospital at the end of June and discharged on 07/18 after being evaluated for chronic right foot diabetic foot ulcer with cellulitis, patient was discharged on IV ertapenem for 6 weeks. He also had right superficial femoral artery arthroplasty and was started on Plavix. patient denies having any chest pain, no shortness of breath, no lower extremity edema. On arrival to the ED patient hemodynamically stable Labs are significant for WBC count of 14, hemoglobin of 9.0 with a baseline around 11, hematocrit of 26.9, creatinine of 3.5 with a baseline of 1.5, UA positive for nitrites, leukocyte Estrace, WBC Cao catheter was placed, patient has gross hematuria, patient will be admitted for further managed Review of Systems Review of Systems: Yes all other systems are reviewed and are negative [facility] Medical History (Updated 08/01/22 @ 07:19 by Fabiana Kimbrough MD) Acute osteomyelitis Back pain Decubitus ulcer, heel Diabetes mellitus Gram-negative bacteremia Heart block History of COVID-19 Hyperlipidemia Hypertension Infection of right foot Iron deficiency anemia PAD (peripheral artery disease) Ulcer of left heel Ulcer of right 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 Urinary retention Family History Brother Testicular cancer Surgical History (Updated 08/01/22 @ 07:19 by Fabiana Kimbrough MD) History of atherectomy History of back surgery History of esophagogastroduodenoscopy History of left hip replacement Hx of cataract extraction Hx of colonoscopy Social History Household Members: Spouse Household Members Other:: 2 Housing: House Do you presently have visiting nurse or other home services: No Alcohol intake: former Patient Tobacco Use Status: Former Tobacco user Tobacco use type: Cigarette Smoked in Last 30 Days: No Advance Directives: Yes Advance Directives on File: Yes Advance Directives Date on File: 07/12/22 Nutrition Risks: No Nutritional Risk service: No Current occupational status: retired Meds Allergies Allergy/AdvReac Type Severity Reaction Status Date / Time lisinopril [LISINOPRIL] Allergy Severe ANGIOEDEMA Verified 08/01/22 00:51 Active Medications: Current Medications Acetaminophen (Acetaminophen 325 Mg Tablet) 650 mg PO Q6H PRN PRN Reason: Pain, Mild (Pain Scale 1-3) Docusate Sodium (Docusate Sodium 100 Mg Capsule) 100 mg PO DAILY PRN PRN Reason: Constipation Glucose (Glucose Gel 15 Gm Gel..Gram.) 15 gm PO Q15M PRN; Protocol PRN Reason: per Hypoglycemia Standing Ord. Dextrose (D10) 250 mls @ 750 mls/hr IV Q15M PRN; Protocol PRN Reason: per Hypoglycemia Standing Ord. Insulin Human Lispro (Insulin Lispro 100 Unit/Ml 3 Ml Vial) 0 unit SUBCUT [facility]; Protocol Ondansetron HCl (Ondansetron Hcl 4 Mg/2 Ml Vial) 4 mg IVPUSH Q8H PRN PRN Reason: Nausea and Vomiting Sodium Chloride (0.9 % Sodium Chloride Flush 3 Ml Syringe) 3 ml IVFLUSH [facility] Home Medications Medication Instructions Recorded Confirmed Last Taken Type metoprolol tartrate 25 mg tablet 25 mg PO BID 03/17/20 07/11/22 07/11/22 History simvastatin 40 mg tablet 40 mg PO BEDTIME 03/17/20 07/11/22 07/11/22 History blood sugar diagnostic (OneTouch #10 ea 11/11/20 07/11/22 Unknown History Verio test strips) pantoprazole 20 mg tablet,delayed 20 mg PO DAILY 11/11/20 07/11/22 07/11/22 History release glipizide 2.5 mg tablet, extended 2.5 mg PO DAILY 12/19/20 07/11/22 07/11/22 History release 24 hr cholecalciferol (vitamin D3) 50 50 mcg PO DAILY 07/11/22 07/11/22 07/11/22 History mcg (2,000 unit) tablet dulaglutide 4.5 mg/0.5 mL 4.5 mg subcut WE 07/11/22 07/11/22 07/11/22 History subcutaneous pen injector (Trulicity) empagliflozin 10 mg tablet 10 mg PO DAILY 07/11/22 07/11/22 07/11/22 History (Jardiance) Physical Exam Vital Signs and Narrative: Vital Signs: Last Vital Signs Temp 98 F 08/01/22 05:49 Pulse 86 08/01/22 05:52 Resp 14 08/01/22 05:52 BP 110/60 08/01/22 05:52 Pulse Ox 98 08/01/22 05:52 O2 Del Method Room Air 08/01/22 05:52 BMI result Body Mass Index 28.8 Const: General: cooperative and no acute distress Orientation/consciousness: patient oriented x3 Eyes: General: appearance normal, both eyes and all related structures Pupils: Equal, round and reactive pupils present Resp: Effort & Inspection: normal respiratory effort Cardio: Rate: regular rate Rhythm: regular rhythm GI: Palpation (GI): Soft to palpation Auscultation: normal bowel sounds : Other: Cao catheter in place, gross hematuria suprapubic tenderness Skin: General skin exam: no rashes or lesions noted Neuro: General: patient oriented x3 Cranial nerves: Yes Equal, round and reactive pupils present Cognition (Neuro): normal cognition Extrem: General: Yes normal to inspection and Yes no pedal edema Results Labs 08/01/22 01:07 08/01/22 01:07 Labs: Laboratory Results - last 24 hr 08/01/22 08/01/22 08/01/22 01:07 01:07 03:27 MCV 90.0 MCH 30.1 MCHC 33.5 RDW 14.3 Plt Count 238 MPV 10.5 Immature Gran % (Auto) 0.5 H Neut % (Auto) 88.1 H Lymph % (Auto) 4.3 L Cole % (Auto) 6.1 Eos % (Auto) 0.6 Baso % (Auto) 0.4 Lymph # (Auto) 0.6 L [place] # (Auto) 0.9 Eos # (Auto) 0.1 Baso # (Auto) 0.1 Abs Immat Gran (auto) 0.07 H Absolute Neuts (auto) 12.3 H Absolute Nucleated RBC 0.000 Nucleated RBC % (auto) 0.0 Anion Gap 16 Estim Creat Clear Calc 18.5 Estimated GFR 17 Random Glucose 246 H Calcium 8.7 Total Bilirubin 0.6 Direct Bilirubin 0.2 AST 25 ALT 15 Alkaline Phosphatase 93 Total Protein 6.0 L Albumin 3.1 L Lipase 47 Urine Color Urine Appearance Urine pH Ur Specific [place] Urine Protein Urine Glucose (UA) Urine Ketones Urine Blood Urine Nitrite Ur Leukocyte Esterase Urine RBC Urine WBC Ur Squamous Epith Cells Urine Bacteria Hyaline Casts Stool Occult Blood Blood Type O Positive Antibody Screen NEGATIVE Crossmatch See Detail 08/01/22 08/01/22 03:29 03:29 MCV MCH MCHC RDW Plt Count MPV Immature Gran % (Auto) Neut % (Auto) Lymph % (Auto) Cole % (Auto) Eos % (Auto) Baso % (Auto) Lymph # (Auto) Cole # (Auto) Eos # (Auto) Baso # (Auto) Abs Immat Gran (auto) Absolute Neuts (auto) Absolute Nucleated RBC Nucleated RBC % (auto) Anion Gap Estim Creat Clear Calc Estimated GFR Random Glucose Calcium Total Bilirubin Direct Bilirubin AST ALT Alkaline Phosphatase Total Protein Albumin Lipase Urine Color Straw Urine Appearance Hazy Urine pH 7.0 Ur Specific [place] 1.020 Urine Protein 300 (3+) H Urine Glucose (UA) >=1000 H Urine Ketones Trace Urine Blood Large (3+) H Urine Nitrite Positive H Ur Leukocyte Esterase Trace H Urine RBC >20 H Urine WBC 6-10 H Ur Squamous Epith Cells 3-5 Urine Bacteria Trace Hyaline Casts 0-2 Stool Occult Blood POSITIVE Blood Type Antibody Screen Crossmatch Assessment and Plan (1) Gross hematuria: Status: Acute (2) Acute kidney injury superimposed on CKD: Status: Acute (3) History of atherectomy: Status: Acute (4) Acute osteomyelitis: Status: Acute (5) Acute urinary retention: Status: Acute (6) Acute UTI: Status: Resolved (7) Acute GI bleeding: Status: Acute (8) Anemia: Status: Acute Plan 81-year-old male with past medical history of acute osteomyelitis recently discharged from the hospital on 6 weeks of ertapenem, as well as peripheral vascular disease status post SFA atherectomy in this month, was to be on Plavix and aspirin for 6 months presents to the hospital with gross hematuria, as well as positive stool occult # acute gross hematuria - in the setting of history of bladder mass as noted in his EMR - recently started on Plavix and aspirin for SFA atherectomy - hemoglobin 6 dropped from 12-9 otherwise he is hemodynamically stable - will hold Plavix, aspirin - urology consulted - follow CBC # DEON and CKD - worsened since discharge, baseline of around 1.5, today is 3.5 - will start him on IV fluids - follow BMP # acute GI bleed - has positive stool occult - will consult GI - started on pantoprazole IV b.i.d. - follow CBC # urinary retention - status post Cao catheter in place - urology consult head # acute on chronic anemia - secondary to hematuria as well as GI bleed - no indication for transfusion at this time - follow CBC # recent acute osteomyelitis - wound cultures showed MSSA plus strep very dense - was to be on ertapenem x6 weeks since 07/16 - status post sharp incision and debridement by surgery - will switch to meropenem inpatient - infectious disease consulted - wound care # diabetes - will place him on low-dose sliding scale insulin, hold oral antihyperglycemics DVT prophylaxis: SCDs given patient's need for further evaluation of hematuria as well as GI bleed patient required minimum [facility] inpatient hospital stay for further management and monitoring Time Spent With Patient Time: Total time managing care of this patient today ____ minutes. Quality Stroke Does the patient have a stroke diagnosis?: No VTE Prior VTE?: No VTE Risk Level:: Medical - moderate - high VTE Device Contraindication: N/A - Device Ordered VTE Drug Contraindication: Treatment Not Indicated
[2022-08-01 07:10] LABS: Glucose, Whole Blood 146 mg/dL (60-115)
[2022-08-01] MEDS: Lactated Ringers 1,000 ML 100 ML IVCONT ×2 (07:50→17:19)
--- NOTE | 2022-08-01 08:00 | P.CNUR_ITS ---
History of Present Illness Consult details Consult date: 08/01/22 Narrative: Consulting complaint gross hematuria 81-year-old male. Presents with difficulty urinating and bloody urine. Recent hospital admission with diabetic foot ulcer. Had been discharged on ertapenem with superficial femoral artery arthroplasty and started on Plavix. Elevated creatinine Ultrasound shows bilateral hydro nephrosis. Question bladder thickening. Recommend [address] catheter. Consult vascular to see if Plavix can be held. Optimize prostate medications with finasteride and doxazosin Will require Outpatient cystoscopy Review of Systems Constitutional: Constitutional: Reports as per HPI and Reports no additional constitutional complaints Cardiovascular: Cardiovascular: Reports as per HPI and Reports no additional cardiovascular complaints Respiratory: Respiratory: Reports as per HPI and Reports no additional respiratory complaints Gastrointestinal: Gastrointestinal: Reports as per HPI and Reports no additional gastrointestinal complaints Genitourinary: Genitourinary: Reports as per HPI Musculoskeletal: Musculoskeletal: Reports no additional musculoskeletal complaints and Reports as per HPI Neurologic: Reports system reviewed and no additional complaints, except as documented and Reports as per HPI PMFSH Past Medical History Medical History (Updated 08/02/22 @ 14:23 by Devin Feliciano MD) Acute osteomyelitis Back pain Decubitus ulcer, heel Diabetes mellitus Gram-negative bacteremia H/O cardiac pacemaker Heart block History of COVID-19 Hyperlipidemia Hypertension Infection of right foot Iron deficiency anemia PAD (peripheral artery disease) Ulcer of left heel Ulcer of right 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 Urinary retention Family History Family History Brother Testicular cancer Surgical History Surgical History History of atherectomy History of back surgery History of esophagogastroduodenoscopy History of left hip replacement Hx of cataract extraction Hx of colonoscopy Social History Social History Household Members: Spouse Household Members Other:: 2 Housing: House Do you presently have visiting nurse or other home services: Yes ([facility]) Alcohol intake: former Patient Tobacco Use Status: Former Tobacco user Tobacco use type: Cigarette Smoked in Last 30 Days: No Use of substances other than those prescribed or required for medical reasons: No Currently Displaying Signs/Symptoms of Drug Intoxication Withdrawal: No Have you been hit, kicked, punched, or otherwise hurt by someone within the past year? If so, by whom?: No Do you feel safe in your current relationship?: Yes Is there a partner from a previous relationship who is making you feel unsafe now?: No Are you made to feel afraid or neglected: No Are you DNR?: No Advance Directives: Yes Advance Directives on File: Yes Advance Directives Date on File: 07/12/22 Do you have thoughts of harming others: None Do you have a plan to hurt others: No Plan Recently lost weight without trying: No Eating poorly because of decreased appetite: No Nutrition Risks: No Nutritional Risk service: No Current occupational status: retired Meds Allergies Allergy/AdvReac Type Severity Reaction Status Date / Time lisinopril [LISINOPRIL] Allergy Severe ANGIOEDEMA Verified 08/01/22 00:51 Active Medications: Current Medications Acetaminophen (Acetaminophen 325 Mg Tablet) 650 mg PO Q6H PRN PRN Reason: Pain, Mild (Pain Scale 1-3) Docusate Sodium (Docusate Sodium 100 Mg Capsule) 100 mg PO DAILY PRN PRN Reason: Constipation Glucose (Glucose Gel 15 Gm Gel..Gram.) 15 gm PO Q15M PRN; Protocol PRN Reason: per Hypoglycemia Standing Ord. Glucose (Glucose Gel 15 Gm Gel..Gram.) 15 gm PO Q15M PRN; Protocol PRN Reason: per Hypoglycemia Standing Ord. Dextrose (D10) 250 mls @ 750 mls/hr IV Q15M PRN; Protocol PRN Reason: per Hypoglycemia Standing Ord. Lactated Ringer's (Lr) 1,000 mls @ 100 mls/hr IVCONT .Q10H [facility] Last Admin: 08/01/22 07:50 Dose: 100 mls/hr Meropenem 500 mg/ Sodium (Chloride) 50 mls @ 100 mls/hr IV Q12H [facility] Dextrose (D10) 250 mls @ 750 mls/hr IV Q15M PRN; Protocol PRN Reason: per Hypoglycemia Standing Ord. Insulin Human Lispro (Insulin Lispro 100 Unit/Ml 3 Ml Vial) 0 unit SUBCUT QIDACHS [facility]; Protocol Insulin Human Lispro (Insulin Lispro 100 Unit/Ml 3 Ml Vial) 0 unit SUBCUT QIDACHS [facility]; Protocol Ondansetron HCl (Ondansetron Hcl 4 Mg/2 Ml Vial) 4 mg IVPUSH Q8H PRN PRN Reason: Nausea and Vomiting Pantoprazole Sodium (Pantoprazole Sodium 40 Mg/10 Ml Vial) 40 mg IVPUSH BID@0630,1630 [facility] Pharmacy Consult (Consult Rx Perform Med Rec) 1 each MISCELLANE ONCE PRN PRN Reason: Consult order Sodium Chloride (0.9 % Sodium Chloride Flush 3 Ml Syringe) 3 ml IVFLUSH QSHIFT [facility] Home Medications Medication Instructions Recorded Confirmed Last Taken Type metoprolol tartrate 25 mg tablet 25 mg PO BID 03/17/20 08/01/22 07/11/22 History simvastatin 40 mg tablet 40 mg PO BEDTIME 03/17/20 08/01/22 07/11/22 History blood sugar diagnostic (OneTouch #10 ea 11/11/20 08/01/22 Unknown History Verio test strips) pantoprazole 20 mg tablet,delayed 20 mg PO DAILY 11/11/20 08/01/22 07/11/22 History release glipizide 2.5 mg tablet, extended 2.5 mg PO DAILY 12/19/20 08/01/22 07/11/22 History release 24 hr cholecalciferol (vitamin D3) 50 50 mcg PO DAILY 07/11/22 08/01/22 07/11/22 History mcg (2,000 unit) tablet dulaglutide 4.5 mg/0.5 mL 4.5 mg subcut WE 07/11/22 08/01/22 07/11/22 History subcutaneous pen injector (Trulicity) empagliflozin 10 mg tablet 10 mg PO DAILY 07/11/22 08/01/22 07/11/22 History (Jardiance) Physical Exam Vital Signs: Vital Signs: Last Vital Signs Temp 98 F 08/01/22 07:43 Pulse 85 08/01/22 07:43 Resp 15 08/01/22 07:43 BP 115/60 08/01/22 07:43 Pulse Ox 98 08/01/22 05:52 O2 Del Method Room Air 08/01/22 05:52 BMI result Body Mass Index 28.8 Const: General: cooperative, healthy appearing, comfortable and no acute distress Orientation/consciousness: patient oriented x3 HEENT: Face and sinus: Yes normal facial exam Mouth: moist mucous membranes Neck: Neck: Yes normal visual inspection, Yes full ROM and Yes trachea midline Chest: Chest palpation & inspection: normal inspection of the chest Resp: Effort & Inspection: normal respiratory effort, able to speak in complete sentences and no respiratory distress GI: Inspection: Yes normal to inspection Back/Spine/Pelvis: Cervical Spine: normal cervical lordosis Thoracic/Lumbar Spine: thoracic and lumbar spine normal to inspection Skin: General skin exam: no rashes or lesions noted Neuro: General: patient oriented x3, tone normal and moves all extremities Extrem: General: Yes normal to inspection and Yes capillary refill normal Results Labs 08/01/22 01:07 08/01/22 01:07 Labs: Abnormal lab results 08/01/22 08/01/22 08/01/22 Range/Units 01:07 01:07 03:27 WBC 14.0 H (4.8-10.8) X10*3/uL RBC 2.99 L (4.60-5.80) X10*6/uL Hgb 9.0 L (14.0-18.0) g/dl Hct 26.9 L D (42.0-52.0) % Immature Gran % (Auto) 0.5 H (0.0-0.4) % Neut % (Auto) 88.1 H (45-73) % Lymph % (Auto) 4.3 L (20-40) % Lymph # (Auto) 0.6 L (1.2-4.9) X10*3/uL Abs Immat Gran (auto) 0.07 H (0.00-0.03) X10*3/uL Absolute Neuts (auto) 12.3 H (2.0-8.3) x10*3/uL Carbon Dioxide 21 L (22-29) mmol/L BUN 68 H (9-16) mg/dL Creatinine 3.50 H (0.5-1.4) mg/dL POC Glucose (60-115) mg/dL Random Glucose 246 H (60-115) mg/dL Total Protein 6.0 L (6.5-8.0) g/dL Albumin 3.1 L (3.5-5.0) g/dL Urine Protein (Neg-Trace) mg/dL Urine Glucose (UA) (Negative) mg/dL Urine Blood (Negative) Urine Nitrite (Negative) Ur Leukocyte Esterase (Negative) Urine RBC (0-2) /HPF Urine WBC (0-5) /HPF Crossmatch See Detail 08/01/22 08/01/22 Range/Units 03:29 07:00 WBC (4.8-10.8) X10*3/uL RBC (4.60-5.80) X10*6/uL Hgb (14.0-18.0) g/dl Hct (42.0-52.0) % Immature Gran % (Auto) (0.0-0.4) % Neut % (Auto) (45-73) % Lymph % (Auto) (20-40) % Lymph # (Auto) (1.2-4.9) X10*3/uL Abs Immat Gran (auto) (0.00-0.03) X10*3/uL Absolute Neuts (auto) (2.0-8.3) x10*3/uL Carbon Dioxide (22-29) mmol/L BUN (9-16) mg/dL Creatinine (0.5-1.4) mg/dL POC Glucose 146 H (60-115) mg/dL Random Glucose (60-115) mg/dL Total Protein (6.5-8.0) g/dL Albumin (3.5-5.0) g/dL Urine Protein 300 (3+) H (Neg-Trace) mg/dL Urine Glucose (UA) >=1000 H (Negative) mg/dL Urine Blood Large (3+) H (Negative) Urine Nitrite Positive H (Negative) Ur Leukocyte Esterase Trace H (Negative) Urine RBC >20 H (0-2) /HPF Urine WBC 6-10 H (0-5) /HPF Crossmatch Short CBC 08/01/22 Range/Units 01:07 WBC 14.0 H (4.8-10.8) X10*3/uL Hgb 9.0 L (14.0-18.0) g/dl Hct 26.9 L D (42.0-52.0) % Plt Count 238 (160-400) X10*3/uL BMP 08/01/22 01:07 Sodium 139 Potassium 5.0 Chloride 107 Carbon Dioxide 21 L BUN 68 H Creatinine 3.50 H Calcium 8.7 Liver Function 08/01/22 Range/Units 01:07 Total Bilirubin 0.6 (0.0-1.0) mg/dL Direct Bilirubin 0.2 (0.0-0.5) mg/dL AST 25 (5-37) U/L ALT 15 (0-40) U/L Alkaline Phosphatase 93 (39-117) U/L Albumin 3.1 L (3.5-5.0) g/dL Urine 08/01/22 Range/Units 03:29 Urine Color Straw Urine Appearance Hazy Urine pH 7.0 (5.0-9.0) Ur Specific [place] 1.020 (1.005-1.025) Urine Protein 300 (3+) H (Neg-Trace) mg/dL Urine Glucose (UA) >=1000 H (Negative) mg/dL All other labs normal. Assessment and Plan (1) Hematuria: Qualifiers: Hematuria type: gross Qualified Code(s): R31.0 - Gross hematuria Status: Acute (2) Bladder mass: Status: Acute (3) Acute urinary retention: Status: Acute Plan Outpatient cystoscopy Continue CBI Hold anticoagulation Time Spent With Patient Time: Total time managing care of this patient today ____ minutes. Procedures Date of Service Date of Service: 08/02/22
[2022-08-01 08:15] LABS: MANUAL DIFF FLAG NO
[2022-08-01 08:19] LABS: Basophils Percent Auto 0.4 % (0-2); Eosinophils Absolute Auto 0.2 X10*3/uL (0.0-0.4); Eosinophils Percent Auto 1.6 % (0-4); Hematocrit 25.9 % (42.0-52.0); Hematocrit 26.4 % (42.0-52.0); Hemoglobin 8.6 g/dl (14.0-18.0); Imm Gran Abs Auto 0.04 X10*3/uL (0.00-0.03); Imm Gran Pct Auto 0.4 % (0.0-0.4); Lymphocytes Percent Auto 8.6 % (20-40); Mean Corpuscular HGB Conc 32.6 g/dl (31.0-36.0); Mean Corpuscular Hemoglobin 29.8 pg (27.0-33.0); Mean Corpuscular Volume 91.3 fL (80.0-98.0); Mean Platelet Volume 10.7 fL (9.4-12.4); Monocytes Absolute Auto 0.7 X10*3/uL (0.1-1.2); Monocytes Percent Auto 6.1 % (2-11); Neutrophils Absolute Auto 9.3 x10*3/uL (2.0-8.3); Neutrophils Percent Auto 82.9 % (45-73); Platelet Count 195 X10*3/uL (160-400); Red Blood Count 2.89 X10*6/uL (4.60-5.80); Red Cell Distribution Width 14.4 % (11.0-16.0); White Blood Count 11.2 X10*3/uL (4.8-10.8)
[2022-08-01 08:32] LABS: Lactic Acid 0.9 mmol/L (0.5-2.0)
[2022-08-01 08:35] LABS: Anion Gap 12 (12-20); Blood Urea Nitrogen 64 mg/dL (9-16); Calcium 8.4 mg/dL (8.4-10.2); Carbon Dioxide 23 mmol/L (22-29); Chloride 109 mmol/L (96-108); Creatinine Clr Calc Pharmacy 19.1; Estimated Glomerular Filt Rate 18; Glucose Random 142 mg/dL (60-115); Potassium 4.3 mmol/L (3.3-5.1); Sodium 140 mmol/L (135-145)
[2022-08-01 08:45] LABS: Glucose, Whole Blood 146 mg/dL (60-115)
[2022-08-01] MEDS: Finasteride 5 MG TABLET PO (08:59)
--- NOTE | 2022-08-01 09:12 | PHA.MEDREC ---
Pharmacy Consult ? Medication Reconciliation Pharmacy has completed the medication reconciliation.
--- NOTE | 2022-08-01 10:23 | P.CONNP_ITS ---
History of Present Illness Reason for Consult Consult date: 08/02/22 Reason for consult: DEON Chief Complaint Chief complaint: Hematuria, GI Bleed History of Present Illness Narrative: 81 year old male with type 2 diabetes, diastolic heart failure history of CKD stage 3, diabetic foot ulcer follows with Podiatry, history of heart block, HTN, HLD, history of urinary retention, comes into the hospital with complaints of suprapubic pain, urinary retention.? and blood in the urine.? started with difficulty urinating came a he has small amount of bloody urine, then developed suprapubic pain. ?patient denies any melena, hematochezia, no hematemesis, hemoptysis, Recetly admitted to the hospital at the end of June and discharged on 07/18 after being evaluated for chronic right foot diabetic foot ulcer with c kusumtis, patient was discharged on IV ertapenem for 6 weeks.? He also had right superficial femoral artery arthroplasty and was started on Plavix. patient? denies having any chest pain, no shortness of breath, no lower extremity edema.? ?Cao catheter was placed, patient has gross hematuria, patient will be admitted for further managed Baseline serum creatinine is around 1.6 mg/dL. At the time of admission creatinine was 3.5 mg/dL and over the past 12 hours creatinine is marginally better at 3.3. Review of Systems Review of Systems No headache. No nausea vomiting. No abdominal pain. No shortness of breath. No cough. No edema. No rash. PMFSH Past Medical History Medical History Acute osteomyelitis Back pain Decubitus ulcer, heel Diabetes mellitus Gram-negative bacteremia Heart block History of COVID-19 Hyperlipidemia Hypertension Infection of right foot Iron deficiency anemia PAD (peripheral artery disease) Ulcer of left heel Ulcer of right 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 Urinary retention Family History Family History Brother Testicular cancer Surgical History Surgical History History of atherectomy History of back surgery History of esophagogastroduodenoscopy History of left hip replacement Hx of cataract extraction Hx of colonoscopy Social History Social History Household Members: Spouse Household Members Other:: 2 Housing: House Do you presently have visiting nurse or other home services: Yes ([facility]NA) Alcohol intake: former Patient Tobacco Use Status: Former Tobacco user Tobacco use type: Cigarette Smoked in Last 30 Days: No Use of substances other than those prescribed or required for medical reasons: No Currently Displaying Signs/Symptoms of Drug Intoxication Withdrawal: No Have you been hit, kicked, punched, or otherwise hurt by someone within the past year? If so, by whom?: No Do you feel safe in your current relationship?: Yes Is there a partner from a previous relationship who is making you feel unsafe now?: No Are you made to feel afraid or neglected: No Advance Directives: Yes Advance Directives on File: Yes Advance Directives Date on File: 07/12/22 Do you have thoughts of harming others: None Do you have a plan to hurt others: No Plan Recently lost weight without trying: No Eating poorly because of decreased appetite: No Nutrition Risks: No Nutritional Risk service: No Current occupational status: retired [employer] Allergies Allergy/AdvReac Type Severity Reaction Status Date / Time lisinopril [LISINOPRIL] Allergy Severe ANGIOEDEMA Verified 08/01/22 00:51 Active Medications: Current Medications Acetaminophen (Acetaminophen 325 Mg Tablet) 650 mg PO Q6H PRN PRN Reason: Pain, Mild (Pain Scale 1-3) Docusate Sodium (Docusate Sodium 100 Mg Capsule) 100 mg PO DAILY PRN PRN Reason: Constipation Doxazosin Mesylate (Doxazosin Mesylate 2 Mg Tablet) 4 mg PO BEDTIME [facility]; Protocol Finasteride (Finasteride 5 Mg Tablet) 5 mg PO DAILY [facility] Last Admin: 08/01/22 08:59 Dose: 5 mg Glucose (Glucose Gel 15 Gm Gel..Gram.) 15 gm PO Q15M PRN; Protocol PRN Reason: per Hypoglycemia Standing Ord. Glucose (Glucose Gel 15 Gm Gel..Gram.) 15 gm PO Q15M PRN; Protocol PRN Reason: per Hypoglycemia Standing Ord. Dextrose (D10) 250 mls @ 750 mls/hr IV Q15M PRN; Protocol PRN Reason: per Hypoglycemia Standing Ord. Lactated Ringer's (Lr) 1,000 mls @ 100 mls/hr IVCONT .Q10H [facility] Last Admin: 08/01/22 07:50 Dose: 100 mls/hr Meropenem 500 mg/ Sodium (Chloride) 50 mls @ 100 mls/hr IV Q12H [facility] Last Infusion: 08/01/22 09:35 Dose: Infused Dextrose (D10) 250 mls @ 750 mls/hr IV Q15M PRN; Protocol PRN Reason: per Hypoglycemia Standing Ord. Insulin Human Lispro (Insulin Lispro 100 Unit/Ml 3 Ml Vial) [facility] Protocol Last Admin: 08/01/22 08:40 Dose: Not Given Insulin Human Lispro (Insulin Lispro 100 Unit/Ml 3 Ml Vial) [facility]; Protocol Last Admin: 08/01/22 08:40 Dose: Not Given Ondansetron HCl (Ondansetron Hcl 4 Mg/2 Ml Vial) 4 mg IVPUSH Q8H PRN PRN Reason: Nausea and Vomiting Pantoprazole Sodium (Pantoprazole Sodium 40 Mg/10 Ml Vial) 40 mg IVPUSH BID@0630,1630 [facility] Pharmacy Consult (Consult Rx Perform Med Rec) 1 each MISCELLANE ONCE PRN PRN Reason: Consult order Sodium Chloride (0.9 % Sodium Chloride Flush 3 Ml Syringe) [facility] Last Admin: 08/01/22 08:40 Dose: Not Given Home Medications Medication Instructions Recorded Confirmed Last Taken Type metoprolol tartrate 25 mg tablet 25 mg PO BID 03/17/20 08/01/22 07/11/22 History simvastatin 40 mg tablet 40 mg PO BEDTIME 03/17/20 08/01/22 07/11/22 History blood sugar diagnostic (OneTouch #10 ea 11/11/20 08/01/22 Unknown History Verio test strips) pantoprazole 20 mg tablet,delayed 20 mg PO DAILY 11/11/20 08/01/22 07/11/22 History release glipizide 2.5 mg tablet, extended 2.5 mg PO DAILY 12/19/20 08/01/22 07/11/22 History release 24 hr cholecalciferol (vitamin D3) 50 50 mcg PO DAILY 07/11/22 08/01/22 07/11/22 History mcg (2,000 unit) tablet dulaglutide 4.5 mg/0.5 mL 4.5 mg subcut WE 07/11/22 08/01/22 07/11/22 History subcutaneous pen injector (Trulicity) empagliflozin 10 mg tablet 10 mg PO DAILY 07/11/22 08/01/22 07/11/22 History (Jardiance) Physical Exam Vital Signs: Last Vital Signs Temp 98 F 08/01/22 08:41 Pulse 84 08/01/22 08:41 Resp 18 08/01/22 08:41 BP 127/71 08/01/22 08:41 Pulse Ox 99 08/01/22 08:41 O2 Del Method Room Air 08/01/22 08:41 BMI result Body Mass Index 26.2 Comfortable Neck is supple Lung: Air entry equal Heart: S1,S2, normal. No rub Abd: Soft. BS + NS : Alert.No asterexis Ext: No edema Cao is draining bloody urine. Results Lab Results 08/01/22 08:08 08/01/22 08:08 Lab results: Chemistry 08/01/22 08/01/22 01:07 08:08 Sodium 139 140 Potassium 5.0 4.3 Carbon Dioxide 21 L 23 BUN 68 H 64 H Creatinine 3.50 H 3.39 H Calcium 8.7 8.4 Hematology 08/01/22 08/01/22 08/01/22 01:07 08:08 08:08 WBC 14.0 H 11.2 H Hgb 9.0 L 8.6 L 8.6 L Plt Count 238 195 Urinalysis 08/01/22 03:29 Urine Color Straw Urine Appearance Hazy Urine pH 7.0 Ur Specific [place] 1.020 Urine Protein 300 (3+) H Urine Glucose (UA) >=1000 H Urine Ketones Trace Urine Blood Large (3+) H Urine Nitrite Positive H Ur Leukocyte Esterase Trace H Urine RBC >20 H Urine WBC 6-10 H Ur Squamous Epith Cells 3-5 Hyaline Casts 0-2 Assessment and Plan (1) Gross hematuria: Status: Acute (2) CKD (chronic kidney disease) stage 3, GFR 30-59 ml/min: Status: Acute Plan 81-year-old man with a history of chronic kidney disease currently has superimposed acute kidney injury and gross hematuria. Acute kidney injury is mostly due to obstructive uropathy/urinary retention. Clinically he appears volume depleted Recommendation. Keep Cao. Keep intake more than output. Avoid hypotension and nephrotoxins. Watch for clots and hematuria and he may require CBI if he has any clots. Needs urology follow-up for the hematuria. No absolute indication for dialysis. We will follow along with the team. Thank you Time Spent With Patient Time: Total time managing care of this patient today ____ minutes. Procedures Date of Service Date of Service: 08/02/22
--- NOTE | 2022-08-01 10:43 | MHC.CM.PN ---
pt lives w/ pt explains that they have private help for housework and lawn care pt has own ride home
--- NOTE | 2022-08-01 10:47 | PM.EVENT ---
Event Note Date of Service: 08/01/22 Event Note: Day hospitalist update S: Suprapubic pain resolved Cao draining bloody urine No rohit hematochezia or melena O: VS- T 98, BP 127/71, P 84, R 18, SaO2 99 on RA gen- NAD lungs- CTAB CV- RRR no m/r/g abd- soft/NT - Cao draining blood tinged urine ext- plantar ulcer base of R 1st toe, RUE PICC A/P: hospital day#1 81yo M with DM2 with polyneuropathy, heart block s/p PPM, diastolic CHF, HTN, HLD, bladder mass admitted 07/11-07/19 for DM foot osteomyelitis causing severe sepsis discharged on 6 wk of IV ertapenem, also had atherectomy and plasty of right SFA on 07/18/22 and was started on DAPT # hematuria # urinary retention # known bladder mass - hold DAPT, consult Urology, obtain records from Urology where he had a biopsy done previously # FOBT+ stool - GI consult, IV PPI, hold DAPT # acute blood loss anemia due to GI/ loss - monitor H+H, hold DAPT as above # DEON/CKD3 - ?obstructive- check renal US + urine lytes for FENa, avoid nephrotoxins, monitor BMP, consult Nephrology - on chronic bicarbonate PO to continue # DM2 acute osteomyelitis, MSSA + Strep viridans - plan was for IV ertapenem until 08/23, replace with meropenem while in-house - wound care as prior: Alginate, 2 x 2 and Kerlix wrap to be changed 3 times a week. # DM2 A1c 8.7 - continue empagliflozin, correction-dose lispro ? # HTN # chronic HFpEF without acute exacerbation - continue empagliflozin, metoprolol # HLD - continue statin # VTE ppx: SCDs # dispo: TBD In my clinical judgment, the patient requires continued hospitalization for the following reasons: IV ABX DEON GI bleeding bleeding Time Spent With Patient Time: Total time managing care of this patient today ____ minutes.
[2022-08-01 11:09] LABS: Glucose, Whole Blood 149 mg/dL (60-115)
[2022-08-01 12:27] LABS: Creatinine Urine 27.97 mg/dL
[2022-08-01 16:16] LABS: Glucose, Whole Blood 159 mg/dL (60-115)
--- NOTE | 2022-08-01 16:51 | W.PM.IDCN ---
History of Present Illness Data of Consult Service Date: 08/01/22 Requesting physician: Jarred Roman Primary Care Provider: RADHA Bonilla HPI Reason for consult: suprapubic pain and hematuria He presents with suprapubic pain and hematuria. I had seen him for right foot osteomyelitis on 07/13. He is supposed to take Ertapenem for strep viridans and MSSA from deep bone/surgical wound infection until August 30. He has acute kidney injury and creatinine 3.5 on admission. He has urine culture pending. He still has purulence foot and dressings reportedly falling off at home and patient walking. He gets VNA but hasnt been set up with Wound Clinic on discharge. Review of Systems Review of Systems: Yes all other systems are reviewed and are negative PMFSH Past Medical History Medical History Acute osteomyelitis Back pain Decubitus ulcer, heel Diabetes mellitus Gram-negative bacteremia Heart block History of COVID-19 Hyperlipidemia Hypertension Infection of right foot Iron deficiency anemia PAD (peripheral artery disease) Ulcer of left heel Ulcer of right 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 Urinary retention Family History Family History Brother Testicular cancer Family history: reviewed and not pertinent Surgical History Surgical History History of atherectomy History of back surgery History of esophagogastroduodenoscopy History of left hip replacement Hx of cataract extraction Hx of colonoscopy Social History Social History Household Members: Spouse Household Members Other:: 2 Housing: House Do you presently have visiting nurse or other home services: Yes (VNA) Alcohol intake: former Patient Tobacco Use Status: Former Tobacco user Tobacco use type: Cigarette Smoked in Last 30 Days: No Use of substances other than those prescribed or required for medical reasons: No Have you been hit, kicked, punched, or otherwise hurt by someone within the past year? If so, by whom?: No Do you feel safe in your current relationship?: Yes Is there a partner from a previous relationship who is making you feel unsafe now?: No Are you made to feel afraid or neglected: No Advance Directives: Yes Advance Directives on File: Yes Advance Directives Date on File: 07/12/22 Do you have thoughts of harming others: None Do you have a plan to hurt others: No Plan Recently lost weight without trying: No Eating poorly because of decreased appetite: No Nutrition Risks: No Nutritional Risk service: No Current occupational status: retired Meds Allergies Allergy/AdvReac Type Severity Reaction Status Date / Time lisinopril [LISINOPRIL] Allergy Severe ANGIOEDEMA Verified 08/01/22 00:51 Active Medications: Current Medications Acetaminophen (Acetaminophen 325 Mg Tablet) 650 mg PO Q6H PRN PRN Reason: Pain, Mild (Pain Scale 1-3) Atorvastatin Calcium (Atorvastatin Calcium 20 Mg Tablet) 20 mg PO BEDTIME JIL Docusate Sodium (Docusate Sodium 100 Mg Capsule) 100 mg PO DAILY PRN PRN Reason: Constipation Doxazosin Mesylate (Doxazosin Mesylate 2 Mg Tablet) 4 mg PO BEDTIME [facility]; Protocol Empagliflozin (Empagliflozin 10 Mg Tablet) 10 mg PO DAILY [facility] Finasteride (Finasteride 5 Mg Tablet) 5 mg PO DAILY [facility] Last Admin: 08/01/22 08:59 Dose: 5 mg Glucose (Glucose Gel 15 Gm Gel..Gram.) 15 gm PO Q15M PRN; Protocol PRN Reason: per Hypoglycemia Standing Ord. Glucose (Glucose Gel 15 Gm Gel..Gram.) 15 gm PO Q15M PRN; Protocol PRN Reason: per Hypoglycemia Standing Ord. Dextrose (D10) 250 mls @ 750 mls/hr IV Q15M PRN; Protocol PRN Reason: per Hypoglycemia Standing Ord. Lactated Ringer's (Lr) 1,000 mls @ 100 mls/hr IVCONT .Q10H [facility] Last Admin: 08/01/22 07:50 Dose: 100 mls/hr Meropenem 500 mg/ Sodium (Chloride) 50 mls @ 100 mls/hr IV Q12H [facility] Last Infusion: 08/01/22 09:35 Dose: Infused Dextrose (D10) 250 mls @ 750 mls/hr IV Q15M PRN; Protocol PRN Reason: per Hypoglycemia Standing Ord. Insulin Human Lispro (Insulin Lispro 100 Unit/Ml 3 Ml Vial) 0 unit SUBCUT QIDACHS [facility]; Protocol Last Admin: 08/01/22 16:30 Dose: Not Given Insulin Human Lispro (Insulin Lispro 100 Unit/Ml 3 Ml Vial) 0 unit SUBCUT QIDACHS [facility]; Protocol Last Admin: 08/01/22 16:30 Dose: Not Given Metoprolol Tartrate (Metoprolol Tartrate 25 Mg Tablet) 25 mg PO BID [facility]; Protocol Ondansetron HCl (Ondansetron Hcl 4 Mg/2 Ml Vial) 4 mg IVPUSH Q8H PRN PRN Reason: Nausea and Vomiting Pantoprazole Sodium (Pantoprazole Sodium 40 Mg/10 Ml Vial) 40 mg IVPUSH BID@0630,1630 [facility] Last Admin: 08/01/22 16:47 Dose: 40 mg Pharmacy Consult (Consult Rx Perform Med Rec) 1 each MISCELLANE ONCE PRN PRN Reason: Consult order Sodium Bicarbonate (Sodium Bicarbonate 650 Mg Tablet) 650 mg PO BID [facility] Sodium Chloride (0.9 % Sodium Chloride Flush 3 Ml Syringe) 3 ml IVFLUSH QSHIFT [facility] Last Admin: 08/01/22 14:45 Dose: Not Given Vitamin D (Cholecalciferol (Vitamin D3) 25 Mcg Tablet) 50 mcg PO DAILY [facility] Home Medications Medication Instructions Recorded Confirmed Last Taken Type metoprolol tartrate 25 mg tablet 25 mg PO BID 03/17/20 08/01/22 07/11/22 History simvastatin 40 mg tablet 40 mg PO BEDTIME 03/17/20 08/01/22 07/11/22 History blood sugar diagnostic (OneTouch #10 ea 11/11/20 08/01/22 Unknown History Verio test strips) pantoprazole 20 mg tablet,delayed 20 mg PO DAILY 11/11/20 08/01/22 07/11/22 History release glipizide 2.5 mg tablet, extended 2.5 mg PO DAILY 12/19/20 08/01/22 07/11/22 History release 24 hr cholecalciferol (vitamin D3) 50 50 mcg PO DAILY 07/11/22 08/01/22 07/11/22 History mcg (2,000 unit) tablet dulaglutide 4.5 mg/0.5 mL 4.5 mg subcut WE 07/11/22 08/01/22 07/11/22 History subcutaneous pen injector (Trulicity) empagliflozin 10 mg tablet 10 mg PO DAILY 07/11/22 08/01/22 07/11/22 History (Jardiance) Physical Exam Vital Signs: Vital Signs: Last Vital Signs Temp 96.8 F 08/01/22 15:23 Pulse 92 08/01/22 15:23 Resp 18 08/01/22 15:23 BP 115/60 08/01/22 15:23 Pulse Ox 99 08/01/22 15:23 O2 Del Method Room Air 08/01/22 15:23 BMI result Body Mass Index 26.2 Extrem: Other: purulence right foot near great toe Results Labs 08/01/22 08:08 08/01/22 08:08 Labs: Short CBC 08/01/22 08/01/22 08/01/22 Range/Units 01:07 08:08 08:08 WBC 14.0 H 11.2 H (4.8-10.8) X10*3/uL Hgb 9.0 L 8.6 L 8.6 L (14.0-18.0) g/dl Hct 26.9 L D 26.4 L 25.9 L (42.0-52.0) % Plt Count 238 195 (160-400) X10*3/uL BMP 08/01/22 08/01/22 01:07 08:08 Sodium 139 140 Potassium 5.0 4.3 Chloride 107 109 H Carbon Dioxide 21 L 23 BUN 68 H 64 H Creatinine 3.50 H 3.39 H Calcium 8.7 8.4 Liver Function 08/01/22 Range/Units 01:07 Total Bilirubin 0.6 (0.0-1.0) mg/dL Direct Bilirubin 0.2 (0.0-0.5) mg/dL AST 25 (5-37) U/L ALT 15 (0-40) U/L Alkaline Phosphatase 93 (39-117) U/L Albumin 3.1 L (3.5-5.0) g/dL Urine 08/01/22 Range/Units 03:29 Urine Color Straw Urine Appearance Hazy Urine pH 7.0 (5.0-9.0) Ur Specific [place] 1.020 (1.005-1.025) Urine Protein 300 (3+) H (Neg-Trace) mg/dL Urine Glucose (UA) >=1000 H (Negative) mg/dL Microbiology Microbiology Results: Microbiology 08/01/22 Unknown Urine Catheterized - Straight Catheter Urine Culture - Preliminary Culture in progress. Assessment and Plan (1) Ulcer of right 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: Status: Acute (2) Infection of right foot: Status: Acute (3) Gross hematuria: Status: Acute Possible Pseudomonas urine or infection resistant to Ertapenem Poorly healing foot Plan Continue Merem Await urine culture Set up Wound Care. Time Spent With Patient Time: Total time managing care of this patient today ____ minutes.
[2022-08-01] MEDS: Doxazosin Mesylate 2 MG TABLET 4 MG PO (19:36)
[2022-08-01] MEDS: Sodium Bicarbonate 650 MG TABLET PO (19:36)
[2022-08-01] MEDS: Atorvastatin Calcium 20 MG TABLET PO (19:36)
[2022-08-01] MEDS: Metoprolol Tartrate 25 MG TABLET PO (19:36)
[2022-08-01 19:44] LABS: Glucose, Whole Blood 137 mg/dL (60-115)
[2022-08-02] VITALS (15 sets, daily range): BP systolic 95–122; BP diastolic 51–64; PULSE 62–98; RESP 16–20; TEMP 35.7–36.6; O2SAT 92–100
[2022-08-02] MEDS: Lactated Ringers 1,000 ML 100 ML IVCONT ×2 (02:55→16:37)
[2022-08-02] MEDS: Pantoprazole Sodium 40 MG/10 ML VIAL IVPUSH ×2 (06:04→16:54)
[2022-08-02 07:00] LABS: Hematocrit 23.5 % (42.0-52.0); Hemoglobin 7.6 g/dl (14.0-18.0); Mean Corpuscular HGB Conc 32.3 g/dl (31.0-36.0); Mean Corpuscular Hemoglobin 30.3 pg (27.0-33.0); Mean Corpuscular Volume 93.6 fL (80.0-98.0); Mean Platelet Volume 11.3 fL (9.4-12.4); Platelet Count 161 X10*3/uL (160-400); Red Blood Count 2.51 X10*6/uL (4.60-5.80); Red Cell Distribution Width 14.8 % (11.0-16.0)
--- NOTE | 2022-08-02 07:00 | P.CNGI_ITS ---
History of Present Illness Data of Consult Service Date: 08/02/22 Requesting physician: Fabiana Kimbrough Primary Care Provider: RADHA Bonilla HPI Reason for consult: Anemia, Heme positie stools 81 YM with type 2 DM, diastolic heart failure, CKD stage 3, diabetic foot ulcer follows with Podiatry, history of heart block, HTN, HLD, history of urinary retention seen at [facility] on 07/31/22 with complaints of suprapubic pain, and urinary retention with blood in the urine.? Symptoms started around 19:00 on 07/31/22 which started with difficulty urinating followed by a small amount of bloody urine, then developed suprapubic pain. Patient denied any melena, hematochezia, no hematemesis, hemoptysis, Of note patient was admitted to the hospital at the end of June and discharged on 07/18 after being evaluated for chronic right foot diabetic foot ulcer with cellulitis, patient was discharged on IV ertapenem for 6 weeks.? He also had right superficial femoral artery arthroplasty and was started on Plavix. patient? denies having any chest pain, no shortness of breath, no lower extremity edema.? On arrival to the ED patient hemodynamically stable. Rectal exam revealed dark heme positive stools (Pt is on oral iron replacement). Labs are significant for? WBC count of 14, hemoglobin of 9.0 with a baseline around 11, hematocrit of 26.9, creatinine of 3.5 with a baseline of? 1.5, UA positive for nitrites, leukocyte Estrace, WBC Cao catheter was placed, patient has gross hematuria, patient was admitted for further managed Pt was transfused 2 U of PRBC overnight and repeat H & H this morning was 7.6 & 23.5 post transfusion Pt is on Plavix PAST GI WORKUP: ENDOSCOPIC STUDIES: 05/16/19 EGD SHOWED GASTRITIS WITH EROSIONS AND EDEMATOUS FOLDS IN THE APEX OF THE BULB 05/17/19 COLONOSCOPY SHOWED MODERATE TO SEVERE DIVERTICULOSIS INVOLVING THE ENTIRE COLON, A FEW DIMINUTIVE RECTAL POLYP AND MODERATE INTERNAL HEMORRHOIDS. NO BLEEDING SOURCE WAS DETECTED. 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 06/03/19 SMALL BOWEL ENTEROSCOPY SHOWED: Duodenum: Nodular tissue with erosions, bx taken, Suspected AVM vs scope trauma?() seen at 4 th part of duodenum and APC applied Jejunum- scattered erosions throughout the jejunum jackie mid jejunum, bx taken. tissue was friable and bled very easily jackie at the ligament of treitz. 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 Plan: Await pathology results, r/o celiac, crohns or other infiltrative disease, amyloidosis if evidence of rebleeding then repeat capsule endoscopy, might need balloon enteroscopy hold aspirin for 5 days Review of Systems Review of Systems: Yes all other systems are reviewed and are negative Neurologic: Reports confusion Psychiatric: Psychiatric: Reports confusion [facility] Past Medical History Medical History (Updated 08/02/22 @ 14:23 by Devin Feliciano MD) Acute osteomyelitis Back pain Decubitus ulcer, heel Diabetes mellitus Gram-negative bacteremia H/O cardiac pacemaker Heart block History of COVID-19 Hyperlipidemia Hypertension Infection of right foot Iron deficiency anemia PAD (peripheral artery disease) Ulcer of left heel Ulcer of right 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 Urinary retention Family History Family History Brother Testicular cancer Family history: reviewed and not pertinent Surgical History Surgical History History of atherectomy History of back surgery History of esophagogastroduodenoscopy History of left hip replacement Hx of cataract extraction Hx of colonoscopy Social History Social History Household Members: Spouse Household Members Other:: 2 Housing: House Do you presently have visiting nurse or other home services: Yes ([facility]) Alcohol intake: former Patient Tobacco Use Status: Former Tobacco user Tobacco use type: Cigarette Smoked in Last 30 Days: No Use of substances other than those prescribed or required for medical reasons: No Currently Displaying Signs/Symptoms of Drug Intoxication Withdrawal: No Have you been hit, kicked, punched, or otherwise hurt by someone within the past year? If so, by whom?: No Do you feel safe in your current relationship?: Yes Is there a partner from a previous relationship who is making you feel unsafe now?: No Are you made to feel afraid or neglected: No Are you DNR?: No Advance Directives: Yes Advance Directives on File: Yes Advance Directives Date on File: 07/12/22 Do you have thoughts of harming others: None Do you have a plan to hurt others: No Plan Recently lost weight without trying: No Eating poorly because of decreased appetite: No Nutrition Risks: No Nutritional Risk service: No Current occupational status: retired Meds Allergies Allergy/AdvReac Type Severity Reaction Status Date / Time lisinopril [LISINOPRIL] Allergy Severe ANGIOEDEMA Verified 08/01/22 00:51 Active Medications: Current Medications Acetaminophen (Acetaminophen 325 Mg Tablet) 650 mg PO Q6H PRN PRN Reason: Pain, Mild (Pain Scale 1-3) Atorvastatin Calcium (Atorvastatin Calcium 20 Mg Tablet) 20 mg PO BEDTIME JIL Last Admin: 08/01/22 19:36 Dose: 20 mg Docusate Sodium (Docusate Sodium 100 Mg Capsule) 100 mg PO DAILY PRN PRN Reason: Constipation Doxazosin Mesylate (Doxazosin Mesylate 2 Mg Tablet) 4 mg PO BEDTIME JIL; Protocol Last Admin: 08/01/22 19:36 Dose: 4 mg Empagliflozin (Empagliflozin 10 Mg Tablet) 10 mg PO DAILY JIL Finasteride (Finasteride 5 Mg Tablet) 5 mg PO DAILY [facility] Last Admin: 08/01/22 08:59 Dose: 5 mg Glucose (Glucose Gel 15 Gm Gel..Gram.) 15 gm PO Q15M PRN; Protocol PRN Reason: per Hypoglycemia Standing Ord. Glucose (Glucose Gel 15 Gm Gel..Gram.) 15 gm PO Q15M PRN; Protocol PRN Reason: per Hypoglycemia Standing Ord. Dextrose (D10) 250 mls @ 750 mls/hr IV Q15M PRN; Protocol PRN Reason: per Hypoglycemia Standing Ord. Lactated Ringer's (Lr) 1,000 mls @ 100 mls/hr IVCONT .Q10H [facility] Last Admin: 08/02/22 02:55 Dose: 100 mls/hr Meropenem 500 mg/ Sodium (Chloride) 50 mls @ 100 mls/hr IV Q12H JIL Last Infusion: 08/01/22 20:08 Dose: Infused Dextrose (D10) 250 mls @ 750 mls/hr IV Q15M PRN; Protocol PRN Reason: per Hypoglycemia Standing Ord. Insulin Human Lispro (Insulin Lispro 100 Unit/Ml 3 Ml Vial) 0 unit SUBCUT QIDACHS [facility]; Protocol Last Admin: 08/01/22 19:38 Dose: Not Given Insulin Human Lispro (Insulin Lispro 100 Unit/Ml 3 Ml Vial) 0 unit SUBCUT QIDACHS [facility]; Protocol Last Admin: 08/01/22 19:39 Dose: Not Given Metoprolol Tartrate (Metoprolol Tartrate 25 Mg Tablet) 25 mg PO BID [facility]; Protocol Last Admin: 08/01/22 19:36 Dose: 25 mg Ondansetron HCl (Ondansetron Hcl 4 Mg/2 Ml Vial) 4 mg IVPUSH Q8H PRN PRN Reason: Nausea and Vomiting Pantoprazole Sodium (Pantoprazole Sodium 40 Mg/10 Ml Vial) 40 mg IVPUSH BID@0630,1630 [facility] Last Admin: 08/02/22 06:04 Dose: 40 mg Pharmacy Consult (Consult Rx Perform Med Rec) 1 each MISCELLANE ONCE PRN PRN Reason: Consult order Sodium Bicarbonate (Sodium Bicarbonate 650 Mg Tablet) 650 mg PO BID [facility] Last Admin: 08/01/22 19:36 Dose: 650 mg Sodium Chloride (0.9 % Sodium Chloride Flush 3 Ml Syringe) [address] [facility] Last Admin: 08/02/22 06:53 Dose: Not Given Vitamin D (Cholecalciferol (Vitamin D3) 25 Mcg Tablet) 50 mcg PO DAILY [facility] Home Medications Medication Instructions Recorded Confirmed Last Taken Type metoprolol tartrate 25 mg tablet 25 mg PO BID 03/17/20 08/01/22 07/11/22 History simvastatin 40 mg tablet 40 mg PO BEDTIME 03/17/20 08/01/22 07/11/22 History blood sugar diagnostic (OneTouch #10 ea 11/11/20 08/01/22 Unknown History Verio test strips) pantoprazole 20 mg tablet,delayed 20 mg PO DAILY 11/11/20 08/01/22 07/11/22 History release glipizide 2.5 mg tablet, extended 2.5 mg PO DAILY 12/19/20 08/01/22 07/11/22 History release 24 hr cholecalciferol (vitamin D3) 50 50 mcg PO DAILY 07/11/22 08/01/22 07/11/22 History mcg (2,000 unit) tablet dulaglutide 4.5 mg/0.5 mL 4.5 mg subcut WE 07/11/22 08/01/22 07/11/22 History subcutaneous pen injector (Trulicity) empagliflozin 10 mg tablet 10 mg PO DAILY 07/11/22 08/01/22 07/11/22 History (Jardiance) Physical Exam Vital Signs: Vital Signs: Last Vital Signs Temp 96.9 F 08/02/22 03:41 Pulse 97 08/02/22 03:41 Resp 16 08/02/22 03:41 BP 119/59 L 08/02/22 03:41 Pulse Ox 99 08/02/22 03:41 O2 Del Method Room Air 08/02/22 03:41 BMI result Body Mass Index 26.2 Const: General: no acute distress, confusion and ill appearing Nutritional Appearance: overweight Orientation/consciousness: confusion Limitations: no limitations HEENT: Head: Yes normal to inspection Ears: hearing grossly normal bilaterally Eyes: Sclerae: sclerae normal Pupils: Equal, round and reactive pupils present Neck: Neck: Yes normal visual inspection Chest: Chest palpation & inspection: normal inspection of the chest Resp: Effort & Inspection: normal respiratory effort Auscultation: clear to auscultation bilaterally Cardio: Palpation: normal PMI Rate: regular rate Rhythm: regular rhythm Heart sounds: S1 normal heart sound present, S2 normal heart sound present and no murmurs GI: Palpation (GI): Soft to palpation, nontender and No hepatosplenomegaly present Auscultation: normal bowel sounds Rectal Exam - Male: Yes deferred Skin: General skin exam: no rashes or lesions noted Neuro: General: gait normal, moves all extremities and confusion Cranial nerves: Yes Equal, round and reactive pupils present Extrem: General: Yes edema (Trace pitting edema rt LE) Psych: Appearance: grossly normal Mental Status: mental status grossly normal Results Labs 08/01/22 08:08 08/01/22 08:08 Labs: Short CBC 08/01/22 08/01/22 Range/Units 08:08 08:08 WBC 11.2 H (4.8-10.8) X10*3/uL Hgb 8.6 L 8.6 L (14.0-18.0) g/dl Hct 26.4 L 25.9 L (42.0-52.0) % Plt Count 195 (160-400) X10*3/uL BMP 08/01/22 08:08 Sodium 140 Potassium 4.3 Chloride 109 H Carbon Dioxide 23 BUN 64 H Creatinine 3.39 H Calcium 8.4 Microbiology Microbiology Results: Microbiology 08/01/22 Unknown Urine Catheterized - Straight Catheter Urine Culture - Preliminary Culture in progress. Assessment and Plan (1) Heme positive stool: Status: Acute (2) Iron deficiency anemia: Status: Acute Plan 81 YM with type 2 DM, diastolic heart failure, CKD stage 3, diabetic foot ulcer follows with Podiatry, history of heart block, HTN, HLD, history of urinary retention seen at [facility] ED on 07/31/22 with complaints of suprapubic pain, and urinary retention with blood in the urine.? Pt is on Plavix On arrival to the ED patient hemodynamically stable. Rectal exam revealed dark heme positive stools (Pt is on oral iron replacement). Labs are significant for? WBC count of 14, hemoglobin of 9.0 with a baseline around 11, hematocrit of 26.9, creatinine of 3.5 with a baseline of? 1.5, Cao catheter was placed, patient has gross hematuria, patient was admitted for further managed Pt was transfused 2 U of PRBC overnight and repeat H & H this morning was 7.6 & 23.5 post transfusion Pt has chronic RICHARD suspected to be GI blood loss (small bowel AVMs) in the past. worsening of chronic anemia on present admission can be related to hematuria versus UGI source RECOMMENDATIONS: 1. Agree with IV PPI 2. Monitor H& H daily 3. Proceed with EGD today. Time Spent With Patient Time: Total time managing care of this patient today ____ minutes. Procedures Date of Service Date of Service: 08/03/22
[2022-08-02 07:17] LABS: Glucose, Whole Blood 183 mg/dL (60-115)
[2022-08-02 07:29] LABS: Anion Gap 20 (12-20); Blood Urea Nitrogen 65 mg/dL (9-16); Calcium 8.5 mg/dL (8.4-10.2); Carbon Dioxide 18 mmol/L (22-29); Chloride 109 mmol/L (96-108); Creatinine Clr Calc Pharmacy 17.5; Estimated Glomerular Filt Rate 18; Glucose Random 191 mg/dL (60-115); Potassium 4.6 mmol/L (3.3-5.1); Sodium 142 mmol/L (135-145)
[2022-08-02] MEDS: Insulin Lispro 100 UNIT/ML 3 ML VIAL SUBCUT ×3 (08:22→21:20)
[2022-08-02] MEDS: Finasteride 5 MG TABLET PO (08:23)
[2022-08-02] MEDS: Empagliflozin 10 MG TABLET PO (08:23)
[2022-08-02] MEDS: Metoprolol Tartrate 25 MG TABLET PO (08:23)
[2022-08-02] MEDS: Sodium Bicarbonate 650 MG TABLET PO ×2 (08:24→21:20)
[2022-08-02] MEDS: Cholecalciferol (Vitamin D3) 25 MCG TABLET 50 MCG PO (08:24)
--- NOTE | 2022-08-02 09:18 | P.PNNP_ITS ---
Subjective Subjective Date of Service: 08/02/22 Interval history: Events noted. Still with hematuria. Currently receiving blood transfusion. Physical Exam Vital Signs: Vital Signs: Last Vital Signs Temp 96.2 F L 08/02/22 08:55 Pulse 74 08/02/22 08:55 Resp 16 08/02/22 08:35 BP 95/51 L 08/02/22 08:55 Pulse Ox 100 08/02/22 07:49 O2 Del Method Room Air 08/02/22 07:49 BMI result Body Mass Index 26.2 Comfortable Neck is supple Lung: Air entry equal Heart: S1,S2, normal. No rub Abd: Soft. BS + NS : Alert.No asterexis Ext: No edema Objective Data Labs 08/02/22 06:18 08/02/22 06:18 Labs: Laboratory Results - last 24 hr 08/01/22 08/01/22 08/01/22 03:27 11:05 11:47 WBC RBC Hgb Hct MCV MCH MCHC RDW Plt Count MPV Absolute Nucleated RBC Nucleated RBC % (auto) Sodium Potassium Chloride Carbon Dioxide Anion Gap BUN Creatinine Estim Creat Clear Calc Estimated GFR POC Glucose 149 H Random Glucose Calcium Ur Random Sodium 100.0 Urine Creatinine Blood Type O Positive Antibody Screen NEGATIVE Crossmatch See Detail 08/01/22 08/01/22 08/01/22 11:47 16:12 19:36 WBC RBC Hgb Hct MCV MCH MCHC RDW Plt Count MPV Absolute Nucleated RBC Nucleated RBC % (auto) Sodium Potassium Chloride Carbon Dioxide Anion Gap BUN Creatinine Estim Creat Clear Calc Estimated GFR POC Glucose 159 H 137 H Random Glucose Calcium Ur Random Sodium Urine Creatinine 27.97 Blood Type Antibody Screen Crossmatch 08/02/22 08/02/22 08/02/22 06:18 06:18 07:12 WBC 9.0 RBC 2.51 L Hgb 7.6 L Hct 23.5 L MCV 93.6 MCH 30.3 MCHC 32.3 RDW 14.8 Plt Count 161 MPV 11.3 Absolute Nucleated RBC 0.000 Nucleated RBC % (auto) 0.0 Sodium 142 Potassium 4.6 Chloride 109 H Carbon Dioxide 18 L Anion Gap 20 BUN 65 H Creatinine 3.35 H Estim Creat Clear Calc 17.5 Estimated GFR 18 POC Glucose 183 H Random Glucose 191 H Calcium 8.5 Ur Random Sodium Urine Creatinine Blood Type Antibody Screen Crossmatch Microbiology Microbiology Results: Microbiology 08/01/22 Unknown Urine Catheterized - Straight Catheter Urine Culture - Preliminary Culture in progress. Procedures Date of Service Date of Service: 08/02/22 Assessment & Plan Assessment and plan (1) Gross hematuria: Status: Acute (2) CKD (chronic kidney disease) stage 3, GFR 30-59 ml/min: Status: Acute Plan 81-year-old man with a history of chronic kidney disease currently has superimpo sed acute kidney injury and gross hematuria. Acute kidney injury is mostly due to obstructive uropathy/urinary retention. Clinically he appears volume depleted Recommendation. Keep Cao. Keep intake more than output. Avoid hypotension and nephrotoxins. Watch for clots and hematuria and he may require CBI if he has any clots. Needs urology follow-up for the hematuria. No absolute indication for dialysis. Transfuse PRBCs as needed. Add sodium bicarbonate 650 mg p.o. b.i.d.. We will follow along with the team. Thank you Time Spent With Patient Time: Total time managing care of this patient today ____ minutes. Progress Note: Quality Stroke Does the patient have a stroke diagnosis?: No
[2022-08-02 11:22] LABS: Glucose, Whole Blood 160 mg/dL (60-115)
--- NOTE | 2022-08-02 13:10 | P.PNIM_ITS ---
Subjective Subjective Date of Service: 08/02/22 Interval History: seen and examined this morning follow up for /GI bleeding called by nurse bp medellin. pt observed sitting up in chair awake/alert - feeling a little lightheaded. no sob, no chest pain denies abdominal pain, nausea Review of Systems Review of Systems: Yes all other systems are reviewed and are negative Constitutional Constitutional: Denies chills and Denies fever(s) ENT Ears, Nose, Mouth, and Throat: Reports dizziness Cardiovascular Cardiovascular: Denies chest pain, Denies palpitations and Denies dyspnea Respiratory Respiratory: Denies cough and Denies dyspnea Neurologic Neurologic: Reports dizziness Endocrine Endocrine: Denies palpitations Physical Exam Vital Signs: Vital Signs: Last Vital Signs Temp 96.6 F L 08/02/22 12:56 Pulse 81 08/02/22 12:56 Resp 16 08/02/22 12:56 BP 108/56 L 08/02/22 12:56 Pulse Ox 99 08/02/22 12:56 O2 Del Method Room Air 08/02/22 12:56 BMI result Body Mass Index 26.2 Const: General: comfortable, no acute distress, alert and awake Nutritional Appearance: average body habitus Orientation/consciousness: patient oriented x3 Resp: Effort & Inspection: normal respiratory effort and able to speak in complete sentences Auscultation: clear to auscultation bilaterally Cardio: Rate: regular rate GI: Inspection: No distended Palpation (GI): Soft to palpation and nontender : Other: loay in place - hematuria Neuro: General: patient oriented x3 and CN's II-XI intact bilaterally Extrem: General: Yes no pedal edema Objective Data Active Medications Acetaminophen (Acetaminophen 325 Mg Tablet) 650 mg PO Q6H PRN PRN Reason: Pain, Mild (Pain Scale 1-3) Atorvastatin Calcium (Atorvastatin Calcium 20 Mg Tablet) 20 mg PO BEDTIME [facility] Last Admin: 08/01/22 19:36 Dose: 20 mg Documented By: DASIA Docusate Sodium (Docusate Sodium 100 Mg Capsule) 100 mg PO DAILY PRN PRN Reason: Constipation Doxazosin Mesylate (Doxazosin Mesylate 2 Mg Tablet) 4 mg PO BEDTIME [facility]; Protocol Last Admin: 08/01/22 19:36 Dose: 4 mg Documented By: DASIA Empagliflozin (Empagliflozin 10 Mg Tablet) 10 mg PO DAILY [facility] Last Admin: 08/02/22 08:23 Dose: 10 mg Documented By: CATHERINE Finasteride (Finasteride 5 Mg Tablet) 5 mg PO DAILY [facility] Last Admin: 08/02/22 08:23 Dose: 5 mg Documented By: CATHERINE Glucose (Glucose Gel 15 Gm Gel..Gram.) 15 gm PO Q15M PRN; Protocol PRN Reason: per Hypoglycemia Standing Ord. Glucose (Glucose Gel 15 Gm Gel..Gram.) 15 gm PO Q15M PRN; Protocol PRN Reason: per Hypoglycemia Standing Ord. Dextrose (D10) 250 mls @ 750 mls/hr IV Q15M PRN; Protocol PRN Reason: per Hypoglycemia Standing Ord. Lactated Ringer's (Lr) 1,000 mls @ 100 mls/hr IVCONT .Q10H [facility] Last Admin: 08/02/22 02:55 Dose: 100 mls/hr Documented By: DASIA Meropenem 500 mg/ Sodium (Chloride) 50 mls @ 100 mls/hr IV Q12H [facility] Last Infusion: 08/02/22 09:11 Dose: 0 mls/hr Documented By: CATHERINE Dextrose (D10) 250 mls @ 750 mls/hr IV Q15M PRN; Protocol PRN Reason: per Hypoglycemia Standing Ord. Insulin Human Lispro (Insulin Lispro 100 Unit/Ml 3 Ml Vial) [facility]; Protocol Last Admin: 08/02/22 11:41 Dose: Not Given Documented By: CATHERINE Non-Admin Reason: NPO Insulin Human Lispro (Insulin Lispro 100 Unit/Ml 3 Ml Vial) [facility]; Protocol Last Admin: 08/02/22 11:41 Dose: Not Given Documented By: CATHERINE Non-Admin Reason: Duplicate Order Metoprolol Tartrate (Metoprolol Tartrate 25 Mg Tablet) 25 mg PO BID [facility]; Protocol Last Admin: 08/02/22 08:23 Dose: 25 mg Documented By: CATHERINE Ondansetron HCl (Ondansetron Hcl 4 Mg/2 Ml Vial) 4 mg IVPUSH Q8H PRN PRN Reason: Nausea and Vomiting Pantoprazole Sodium (Pantoprazole Sodium 40 Mg/10 Ml Vial) 40 mg IVPUSH BID@0630,1630 [facility] Last Admin: 08/02/22 06:04 Dose: 40 mg Documented By: DASIA Pharmacy Consult (Consult Rx Perform Med Rec) 1 each MISCELLANE ONCE PRN PRN Reason: Consult order Sodium Bicarbonate (Sodium Bicarbonate 650 Mg Tablet) 650 mg PO BID [facility] Last Admin: 08/02/22 08:24 Dose: 650 mg Documented By: CATHERINE Sodium Chloride (0.9 % Sodium Chloride Flush 3 Ml Syringe) 3 ml IVFLUSH QSHIFT [facility] Last Admin: 08/02/22 06:53 Dose: Not Given Documented By: CATHERINE Non-Admin Reason: IV Running Vitamin D (Cholecalciferol (Vitamin D3) 25 Mcg Tablet) 50 mcg PO DAILY [facility] Last Admin: 08/02/22 08:24 Dose: 50 mcg Documented By: CATHERINE Labs 08/02/22 06:18 08/02/22 06:18 Labs: Laboratory Results - last 24 hr 08/01/22 08/01/22 08/01/22 03:27 16:12 19:36 MCV MCH MCHC RDW Plt Count MPV Absolute Nucleated RBC Nucleated RBC % (auto) Anion Gap Estim Creat Clear Calc Estimated GFR POC Glucose 159 H 137 H Random Glucose Calcium Blood Type O Positive Antibody Screen NEGATIVE Crossmatch See Detail 08/02/22 08/02/22 08/02/22 06:18 06:18 07:12 MCV 93.6 MCH 30.3 MCHC 32.3 RDW 14.8 Plt Count 161 MPV 11.3 Absolute Nucleated RBC 0.000 Nucleated RBC % (auto) 0.0 Anion Gap 20 Estim Creat Clear Calc 17.5 Estimated GFR 18 POC Glucose 183 H Random Glucose 191 H Calcium 8.5 Blood Type Antibody Screen Crossmatch 08/02/22 11:18 MCV MCH MCHC RDW Plt Count MPV Absolute Nucleated RBC Nucleated RBC % (auto) Anion Gap Estim Creat Clear Calc Estimated GFR POC Glucose 160 H Random Glucose Calcium Blood Type Antibody Screen Crossmatch Microbiology Microbiology Results: Microbiology 08/01/22 08:08 Blood Culture - Preliminary Blood - Venous No growth after 24 hours. 08/01/22 08:08 Blood Culture - Preliminary Blood - Venous No growth after 24 hours. 08/01/22 Unknown Urine Culture - Preliminary Urine Catheterized - Straight Catheter Culture in progress. Assessment and Plan (1) Hematuria: Status: Acute (2) Acute GI bleeding: Status: Acute (3) Heme positive stool: Status: Acute Plan 81-year-old male with past medical history of acute osteomyelitis recently discharged from the hospital on 6 weeks of ertapenem, as well as peripheral vascular disease status post SFA atherectomy in this month, was to be on Plavix and aspirin for 6 months presents to the hospital with gross hematuria, as well as positive stool occult # acute gross hematuria - in the setting of history of bladder mass as noted in his EMR - recently started on Plavix and aspirin for SFA atherectomy - Plavix, aspirin on hold - H/H trending down, will transfuse 1u RBC - seen by urology - US showing b/l hydro ?bladder thickening. rec CBI. will need outpatient cystoscopy. started on finasteride and doxazosin - follow CBC # acute GI bleed has positive stool occult. H/H trending down - started on pantoprazole IV b.i.d. - seen by GI - plan for EGD today - follow CBC # DEON and CKD worsened since discharge, baseline of around 1.5, today is 3.5 r/t obstructive uropathy/urinary retention - continue IV fluids - seen by nephrology - rec to start sodium bicarb - follow BMP # urinary retention - status post Loya catheter in place - seen by urology - rec outpatient cystoscopy # acute on chronic anemia - secondary to hematuria as well as GI bleed - will transfuse 1U and follow H/H closely - follow CBC #hypotension likely r/t bleeding, no sepsis hold metoprolol follow closely # recent acute osteomyelitis - wound cultures showed MSSA plus strep very dense - was to be on ertapenem x6 weeks since 07/16 - status post sharp incision and debridement by surgery - will switch to meropenem inpatient - infectious disease consulted - wound care - followed by vascular outpatient, recent procedure done as above, consult pending # diabetes - will place him on low-dose sliding scale insulin, hold oral antihyperglycemics DVT prophylaxis: SCDs attending - dr. estrella given patient's need for further evaluation of hematuria as well as GI bleed patient required ongoing hospital stay for further management and monitoring Time Spent With Patient Time: Total time managing care of this patient today ____ minutes. Quality Stroke Does the patient have a stroke diagnosis?: No VTE Prior VTE?: No VTE Risk Level:: Medical - moderate - high VTE Device Contraindication: N/A - Device Ordered VTE Drug Contraindication: Treatment Not Indicated
--- NOTE | 2022-08-02 13:31 | MHC.CM.PN ---
EMR REVIEWED AND PER MD ROUNDS, PT NOT MEDICALLY CLEARED FOR DC (MANAGEMENT AND MONITORING FOR GI BLEED AND HEMATURIA REQUIRING TRANSFUSION) [facility] UPDATED AND CM WILL CONTINUE TO FOLLOW FOR DC PLAN.
--- NOTE | 2022-08-02 13:42 | HO.ANESPROP2 ---
HPI - Anesthesia Eval Consult details Narrative: for EGD PMFSH Active Problems Active Problems: All Active Problems (Updated 08/02/22 @ 12:53 by Milena Rodríguez, RN) Cao catheter problem (Acute) Encounter for interrogation of cardiac pacemaker (Acute) Symptomatic bradycardia (Acute) Congestive heart failure with LV diastolic dysfunction, NYHA class 3 (Acute) Type 2 diabetes mellitus with unspecified complications (Acute) Mitral annular calcification (Acute) Diabetic foot ulcer (Acute) Cellulitis of foot, right (Acute) CKD (chronic kidney disease) stage 3, GFR 30-59 ml/min (Acute) Diabetic osteomyelitis (Acute) Metabolic acidosis (Acute) Acute urinary retention (Acute) Hematuria (Acute) Bladder mass (Acute) Acute GI bleeding (Acute) Anemia (Acute) Intertriginous candidiasis (Acute) Acute kidney injury superimposed on CKD (Acute) Gross hematuria (Acute) Ulcer of right 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 (Acute) PAD (peripheral artery disease) (Acute) Infection of right foot (Acute) Acute osteomyelitis (Acute) History of atherectomy (Acute) Heart block (Acute) Past Medical History Medical History (Updated 08/02/22 @ 12:53 by Milena Rodríguez, EDGARDO) Acute osteomyelitis Back pain Decubitus ulcer, heel Diabetes mellitus Gram-negative bacteremia H/O cardiac pacemaker Heart block History of COVID-19 Hyperlipidemia Hypertension Infection of right foot Iron deficiency anemia PAD (peripheral artery disease) Ulcer of left heel Ulcer of right 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 Urinary retention Family History Family History Brother Testicular cancer Family history of problems with anesthesia: No Surgical History Surgical History History of atherectomy History of back surgery History of esophagogastroduodenoscopy History of left hip replacement Hx of cataract extraction Hx of colonoscopy History of Problems with Anesthesia: No Social History Social History Household Members: Spouse Household Members Other:: 2 Housing: House Do you presently have visiting nurse or other home services: Yes ([facility]) Alcohol intake: former Patient Tobacco Use Status: Former Tobacco user Tobacco use type: Cigarette Smoked in Last 30 Days: No Use of substances other than those prescribed or required for medical reasons: No Currently Displaying Signs/Symptoms of Drug Intoxication Withdrawal: No Have you been hit, kicked, punched, or otherwise hurt by someone within the past year? If so, by whom?: No Do you feel safe in your current relationship?: Yes Is there a partner from a previous relationship who is making you feel unsafe now?: No Are you made to feel afraid or neglected: No Advance Directives: Yes Advance Directives on File: Yes Advance Directives Date on File: 07/12/22 Do you have thoughts of harming others: None Do you have a plan to hurt others: No Plan Recently lost weight without trying: No Eating poorly because of decreased appetite: No Nutrition Risks: No Nutritional Risk service: No Current occupational status: retired Meds Allergies Allergy/AdvReac Type Severity Reaction Status Date / Time lisinopril [LISINOPRIL] Allergy Severe ANGIOEDEMA Verified 08/01/22 00:51 Active Medications: Current Medications Acetaminophen (Acetaminophen 325 Mg Tablet) 650 mg PO Q6H PRN PRN Reason: Pain, Mild (Pain Scale 1-3) Atorvastatin Calcium (Atorvastatin Calcium 20 Mg Tablet) 20 mg PO BEDTIME [facility] Last Admin: 08/01/22 19:36 Dose: 20 mg Docusate Sodium (Docusate Sodium 100 Mg Capsule) 100 mg PO DAILY PRN PRN Reason: Constipation Doxazosin Mesylate (Doxazosin Mesylate 2 Mg Tablet) 4 mg PO BEDTIME [facility]; Protocol Last Admin: 08/01/22 19:36 Dose: 4 mg Empagliflozin (Empagliflozin 10 Mg Tablet) 10 mg PO DAILY [facility] Last Admin: 08/02/22 08:23 Dose: 10 mg Finasteride (Finasteride 5 Mg Tablet) 5 mg PO DAILY [facility] Last Admin: 08/02/22 08:23 Dose: 5 mg Glucose (Glucose Gel 15 Gm Gel..Gram.) 15 gm PO Q15M PRN; Protocol PRN Reason: per Hypoglycemia Standing Ord. Glucose (Glucose Gel 15 Gm Gel..Gram.) 15 gm PO Q15M PRN; Protocol PRN Reason: per Hypoglycemia Standing Ord. Dextrose (D10) 250 mls @ 750 mls/hr IV Q15M PRN; Protocol PRN Reason: per Hypoglycemia Standing Ord. Lactated Ringer's (Lr) 1,000 mls @ 100 mls/hr IVCONT .Q10H [facility] Last Admin: 08/02/22 02:55 Dose: 100 mls/hr Meropenem 500 mg/ Sodium (Chloride) 50 mls @ 100 mls/hr IV Q12H [facility] Last Infusion: 08/02/22 09:11 Dose: Infused Dextrose (D10) 250 mls @ 750 mls/hr IV Q15M PRN; Protocol PRN Reason: per Hypoglycemia Standing Ord. Insulin Human Lispro (Insulin Lispro 100 Unit/Ml 3 Ml Vial) 0 unit SUBCUT QIDACHS [facility]; Protocol Last Admin: 08/02/22 11:41 Dose: Not Given Insulin Human Lispro (Insulin Lispro 100 Unit/Ml 3 Ml Vial) 0 unit SUBCUT QIDACHS [facility]; Protocol Last Admin: 08/02/22 11:41 Dose: Not Given Metoprolol Tartrate (Metoprolol Tartrate 25 Mg Tablet) 25 mg PO BID [facility]; Protocol Last Admin: 08/02/22 08:23 Dose: 25 mg Ondansetron HCl (Ondansetron Hcl 4 Mg/2 Ml Vial) 4 mg IVPUSH Q8H PRN PRN Reason: Nausea and Vomiting Pantoprazole Sodium (Pantoprazole Sodium 40 Mg/10 Ml Vial) 40 mg IVPUSH BID@0630,1630 [facility] Last Admin: 08/02/22 06:04 Dose: 40 mg Pharmacy Consult (Consult Rx Perform Med Rec) 1 each MISCELLANE ONCE PRN PRN Reason: Consult order Sodium Bicarbonate (Sodium Bicarbonate 650 Mg Tablet) 650 mg PO BID [facility] Last Admin: 08/02/22 08:24 Dose: 650 mg Sodium Chloride (0.9 % Sodium Chloride Flush 3 Ml Syringe) 3 ml IVFLUSH QSHIFT [facility] Last Admin: 08/02/22 06:53 Dose: Not Given Vitamin D (Cholecalciferol (Vitamin D3) 25 Mcg Tablet) 50 mcg PO DAILY [facility] Last Admin: 08/02/22 08:24 Dose: 50 mcg Home Medications Medication Instructions Recorded Confirmed Last Taken Type metoprolol tartrate 25 mg tablet 25 mg PO BID 03/17/20 08/01/22 07/11/22 History simvastatin 40 mg tablet 40 mg PO BEDTIME 03/17/20 08/01/22 07/11/22 History blood sugar diagnostic (OneTouch #10 ea 11/11/20 08/01/22 Unknown History Verio test strips) pantoprazole 20 mg tablet,delayed 20 mg PO DAILY 11/11/20 08/01/22 07/11/22 History release glipizide 2.5 mg tablet, extended 2.5 mg PO DAILY 12/19/20 08/01/22 07/11/22 History release 24 hr cholecalciferol (vitamin D3) 50 50 mcg PO DAILY 07/11/22 08/01/22 07/11/22 History mcg (2,000 unit) tablet dulaglutide 4.5 mg/0.5 mL 4.5 mg subcut WE 07/11/22 08/01/22 07/11/22 History subcutaneous pen injector (Trulicity) empagliflozin 10 mg tablet 10 mg PO DAILY 07/11/22 08/01/22 07/11/22 History (Jardiance) Exam Exam Date and Time: August 02, 2022 1342 Height,Weight and Vital Signs: Height 5 ft 9 in Weight 80.6 kg Last Vital Signs Temp 96.6 F L 08/02/22 12:56 Pulse 81 08/02/22 12:56 Resp 16 08/02/22 12:56 BP 108/56 L 08/02/22 12:56 Pulse Ox 99 08/02/22 12:56 O2 Del Method Room Air 08/02/22 12:56 Pertinent Lab Results Pertinent Lab Results: Laboratory Tests 08/01/22 08/01/22 08/01/22 01:07 01:07 03:27 WBC 14.0 H RBC 2.99 L Hgb 9.0 L Hct 26.9 L D MCV 90.0 MCH 30.1 MCHC 33.5 RDW 14.3 Plt Count 238 MPV 10.5 Immature Gran % (Auto) 0.5 H Neut % (Auto) 88.1 H Lymph % (Auto) 4.3 L [place] % (Auto) 6.1 Eos % (Auto) 0.6 Baso % (Auto) 0.4 Lymph # (Auto) 0.6 L [place] # (Auto) 0.9 Eos # (Auto) 0.1 Baso # (Auto) 0.1 Abs Immat Gran (auto) 0.07 H Absolute Neuts (auto) 12.3 H Absolute Nucleated RBC 0.000 Nucleated RBC % (auto) 0.0 Sodium 139 Potassium 5.0 Chloride 107 Carbon Dioxide 21 L Anion Gap 16 BUN 68 H Creatinine 3.50 H Estim Creat Clear Calc 18.5 Estimated GFR 17 POC Glucose Random Glucose 246 H Lactic Acid Calcium 8.7 Total Bilirubin 0.6 Direct Bilirubin 0.2 AST 25 ALT 15 Alkaline Phosphatase 93 Total Protein 6.0 L Albumin 3.1 L Lipase 47 Urine Color Urine Appearance Urine pH Ur Specific [place] Urine Protein Urine Glucose (UA) Urine Ketones Urine Blood Urine Nitrite Ur Leukocyte Esterase Urine RBC Urine WBC Ur Squamous Epith Cells Urine Bacteria Hyaline Casts Ur Random Sodium Urine Creatinine Stool Occult Blood Blood Type O Positive Antibody Screen NEGATIVE Crossmatch See Detail 08/01/22 08/01/22 08/01/22 03:29 03:29 07:00 WBC RBC Hgb Hct MCV MCH MCHC RDW Plt Count MPV Immature Gran % (Auto) Neut % (Auto) Lymph % (Auto) [place] % (Auto) Eos % (Auto) Baso % (Auto) Lymph # (Auto) [place] # (Auto) Eos # (Auto) Baso # (Auto) Abs Immat Gran (auto) Absolute Neuts (auto) Absolute Nucleated RBC Nucleated RBC % (auto) Sodium Potassium Chloride Carbon Dioxide Anion Gap BUN Creatinine Estim Creat Clear Calc Estimated GFR POC Glucose 146 H Random Glucose Lactic Acid Calcium Total Bilirubin Direct Bilirubin AST ALT Alkaline Phosphatase Total Protein Albumin Lipase Urine Color Straw Urine Appearance Hazy Urine pH 7.0 Ur Specific [place] 1.020 Urine Protein 300 (3+) H Urine Glucose (UA) >=1000 H Urine Ketones Trace Urine Blood Large (3+) H Urine Nitrite Positive H Ur Leukocyte Esterase Trace H Urine RBC >20 H Urine WBC 6-10 H Ur Squamous Epith Cells 3-5 Urine Bacteria Trace Hyaline Casts 0-2 Ur Random Sodium Urine Creatinine Stool Occult Blood POSITIVE Blood Type Antibody Screen Crossmatch 08/01/22 08/01/22 08/01/22 08:08 08:08 08:08 WBC 11.2 H RBC 2.89 L Hgb 8.6 L 8.6 L Hct 26.4 L 25.9 L MCV 91.3 MCH 29.8 MCHC 32.6 RDW 14.4 Plt Count 195 MPV 10.7 Immature Gran % (Auto) 0.4 Neut % (Auto) 82.9 H Lymph % (Auto) 8.6 L [place] % (Auto) 6.1 Eos % (Auto) 1.6 Baso % (Auto) 0.4 Lymph # (Auto) 1.0 L [place] # (Auto) 0.7 Eos # (Auto) 0.2 Baso # (Auto) 0.0 Abs Immat Gran (auto) 0.04 H Absolute Neuts (auto) 9.3 H Absolute Nucleated RBC 0.000 Nucleated RBC % (auto) 0.0 Sodium 140 Potassium 4.3 Chloride 109 H Carbon Dioxide 23 Anion Gap 12 BUN 64 H Creatinine 3.39 H Estim Creat Clear Calc 19.1 Estimated GFR 18 POC Glucose Random Glucose 142 H Lactic Acid Calcium 8.4 Total Bilirubin Direct Bilirubin AST ALT Alkaline Phosphatase Total Protein Albumin Lipase Urine Color Urine Appearance Urine pH Ur Specific [place] Urine Protein Urine Glucose (UA) Urine Ketones Urine Blood Urine Nitrite Ur Leukocyte Esterase Urine RBC Urine WBC Ur Squamous Epith Cells Urine Bacteria Hyaline Casts Ur Random Sodium Urine Creatinine Stool Occult Blood Blood Type Antibody Screen Crossmatch 08/01/22 08/01/22 08/01/22 08:08 08:38 11:05 WBC RBC Hgb Hct MCV MCH MCHC RDW Plt Count MPV Immature Gran % (Auto) Neut % (Auto) Lymph % (Auto) [place] % (Auto) Eos % (Auto) Baso % (Auto) Lymph # (Auto) [place] # (Auto) Eos # (Auto) Baso # (Auto) Abs Immat Gran (auto) Absolute Neuts (auto) Absolute Nucleated RBC Nucleated RBC % (auto) Sodium Potassium Chloride Carbon Dioxide Anion Gap BUN Creatinine Estim Creat Clear Calc Estimated GFR POC Glucose 146 H 149 H Random Glucose Lactic Acid 0.9 Calcium Total Bilirubin Direct Bilirubin AST ALT Alkaline Phosphatase Total Protein Albumin Lipase Urine Color Urine Appearance Urine pH Ur Specific [place] Urine Protein Urine Glucose (UA) Urine Ketones Urine Blood Urine Nitrite Ur Leukocyte Esterase Urine RBC Urine WBC Ur Squamous Epith Cells Urine Bacteria Hyaline Casts Ur Random Sodium Urine Creatinine Stool Occult Blood Blood Type Antibody Screen Crossmatch 08/01/22 08/01/22 08/01/22 11:47 11:47 16:12 WBC RBC Hgb Hct MCV MCH MCHC RDW Plt Count MPV Immature Gran % (Auto) Neut % (Auto) Lymph % (Auto) [place] % (Auto) Eos % (Auto) Baso % (Auto) Lymph # (Auto) [place] # (Auto) Eos # (Auto) Baso # (Auto) Abs Immat Gran (auto) Absolute Neuts (auto) Absolute Nucleated RBC Nucleated RBC % (auto) Sodium Potassium Chloride Carbon Dioxide Anion Gap BUN Creatinine Estim Creat Clear Calc Estimated GFR POC Glucose 159 H Random Glucose Lactic Acid Calcium Total Bilirubin Direct Bilirubin AST ALT Alkaline Phosphatase Total Protein Albumin Lipase Urine Color Urine Appearance Urine pH Ur Specific [place] Urine Protein Urine Glucose (UA) Urine Ketones Urine Blood Urine Nitrite Ur Leukocyte Esterase Urine RBC Urine WBC Ur Squamous Epith Cells Urine Bacteria Hyaline Casts Ur Random Sodium 100.0 Urine Creatinine 27.97 Stool Occult Blood Blood Type Antibody Screen Crossmatch 08/01/22 08/02/22 08/02/22 19:36 06:18 06:18 WBC 9.0 RBC 2.51 L Hgb 7.6 L Hct 23.5 L MCV 93.6 MCH 30.3 MCHC 32.3 RDW 14.8 Plt Count 161 MPV 11.3 Immature Gran % (Auto) Neut % (Auto) Lymph % (Auto) [place] % (Auto) Eos % (Auto) Baso % (Auto) Lymph # (Auto) [place] # (Auto) Eos # (Auto) Baso # (Auto) Abs Immat Gran (auto) Absolute Neuts (auto) Absolute Nucleated RBC 0.000 Nucleated RBC % (auto) 0.0 Sodium 142 Potassium 4.6 Chloride 109 H Carbon Dioxide 18 L Anion Gap 20 BUN 65 H Creatinine 3.35 H Estim Creat Clear Calc 17.5 Estimated GFR 18 POC Glucose 137 H Random Glucose 191 H Lactic Acid Calcium 8.5 Total Bilirubin Direct Bilirubin AST ALT Alkaline Phosphatase Total Protein Albumin Lipase Urine Color Urine Appearance Urine pH Ur Specific [place] Urine Protein Urine Glucose (UA) Urine Ketones Urine Blood Urine Nitrite Ur Leukocyte Esterase Urine RBC Urine WBC Ur Squamous Epith Cells Urine Bacteria Hyaline Casts Ur Random Sodium Urine Creatinine Stool Occult Blood Blood Type Antibody Screen Crossmatch 08/02/22 08/02/22 07:12 11:18 WBC RBC Hgb Hct MCV MCH MCHC RDW Plt Count MPV Immature Gran % (Auto) Neut % (Auto) Lymph % (Auto) [place] % (Auto) Eos % (Auto) Baso % (Auto) Lymph # (Auto) [place] # (Auto) Eos # (Auto) Baso # (Auto) Abs Immat Gran (auto) Absolute Neuts (auto) Absolute Nucleated RBC Nucleated RBC % (auto) Sodium Potassium Chloride Carbon Dioxide Anion Gap BUN Creatinine Estim Creat Clear Calc Estimated GFR POC Glucose 183 H 160 H Random Glucose Lactic Acid Calcium Total Bilirubin Direct Bilirubin AST ALT Alkaline Phosphatase Total Protein Albumin Lipase Urine Color Urine Appearance Urine pH Ur Specific [place] Urine Protein Urine Glucose (UA) Urine Ketones Urine Blood Urine Nitrite Ur Leukocyte Esterase Urine RBC Urine WBC Ur Squamous Epith Cells Urine Bacteria Hyaline Casts Ur Random Sodium Urine Creatinine Stool Occult Blood Blood Type Antibody Screen Crossmatch Assessment and Plan Final Anesthetic Review Family History of Problems with Anesthesia: No History of Problems with Anesthesia: No
--- NOTE | 2022-08-02 13:52 | P.CONAN1_ITS ---
History of Present Illness Consult details Consult date: 08/02/22 Reason for consult: other (Planned EGD to r/o GI bleeding.) Requesting physician: Devin Feliciano Narrative: The patient presented with anemia and hematuria. [facility] Past Medical History Medical History (Updated 08/02/22 @ 12:53 by Milena Rodríguez RN) Acute osteomyelitis Back pain Decubitus ulcer, heel Diabetes mellitus Gram-negative bacteremia H/O cardiac pacemaker Heart block History of COVID-19 Hyperlipidemia Hypertension Infection of right foot Iron deficiency anemia PAD (peripheral artery disease) Ulcer of left heel Ulcer of right 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 Urinary retention Family History Family History Brother Testicular cancer Family history: reviewed and not pertinent Surgical History Surgical History History of atherectomy History of back surgery History of esophagogastroduodenoscopy History of left hip replacement Hx of cataract extraction Hx of colonoscopy Social History Social History Household Members: Spouse Household Members Other:: 2 Housing: House Do you presently have visiting nurse or other home services: Yes ([facility]) Alcohol intake: former Patient Tobacco Use Status: Former Tobacco user Tobacco use type: Cigarette Smoked in Last 30 Days: No Use of substances other than those prescribed or required for medical reasons: No Currently Displaying Signs/Symptoms of Drug Intoxication Withdrawal: No Have you been hit, kicked, punched, or otherwise hurt by someone within the past year? If so, by whom?: No Do you feel safe in your current relationship?: Yes Is there a partner from a previous relationship who is making you feel unsafe now?: No Are you made to feel afraid or neglected: No Advance Directives: Yes Advance Directives on File: Yes Advance Directives Date on File: 07/12/22 Do you have thoughts of harming others: None Do you have a plan to hurt others: No Plan Recently lost weight without trying: No Eating poorly because of decreased appetite: No Nutrition Risks: No Nutritional Risk service: No Current occupational status: retired Meds Allergies Allergy/AdvReac Type Severity Reaction Status Date / Time lisinopril [LISINOPRIL] Allergy Severe ANGIOEDEMA Verified 08/01/22 00:51 Active Medications: Current Medications Acetaminophen (Acetaminophen 325 Mg Tablet) 650 mg PO Q6H PRN PRN Reason: Pain, Mild (Pain Scale 1-3) Atorvastatin Calcium (Atorvastatin Calcium 20 Mg Tablet) 20 mg PO BEDTIME [facility] Last Admin: 08/01/22 19:36 Dose: 20 mg Docusate Sodium (Docusate Sodium 100 Mg Capsule) 100 mg PO DAILY PRN PRN Reason: Constipation Doxazosin Mesylate (Doxazosin Mesylate 2 Mg Tablet) 4 mg PO BEDTIME [facility]; Protocol Last Admin: 08/01/22 19:36 Dose: 4 mg Empagliflozin (Empagliflozin 10 Mg Tablet) 10 mg PO DAILY [facility] Last Admin: 08/02/22 08:23 Dose: 10 mg Finasteride (Finasteride 5 Mg Tablet) 5 mg PO DAILY [facility] Last Admin: 08/02/22 08:23 Dose: 5 mg Glucose (Glucose Gel 15 Gm Gel..Gram.) 15 gm PO Q15M PRN; Protocol PRN Reason: per Hypoglycemia Standing Ord. Glucose (Glucose Gel 15 Gm Gel..Gram.) 15 gm PO Q15M PRN; Protocol PRN Reason: per Hypoglycemia Standing Ord. Dextrose (D10) 250 mls @ 750 mls/hr IV Q15M PRN; Protocol PRN Reason: per Hypoglycemia Standing Ord. Lactated Ringer's (Lr) 1,000 mls @ 100 mls/hr IVCONT .Q10H [facility] Last Admin: 08/02/22 02:55 Dose: 100 mls/hr Meropenem 500 mg/ Sodium (Chloride) 50 mls @ 100 mls/hr IV Q12H [facility] Last Infusion: 08/02/22 09:11 Dose: Infused Dextrose (D10) 250 mls @ 750 mls/hr IV Q15M PRN; Protocol PRN Reason: per Hypoglycemia Standing Ord. Insulin Human Lispro (Insulin Lispro 100 Unit/Ml 3 Ml Vial) 0 unit SUBCUT QIDACHS [facility]; Protocol Last Admin: 08/02/22 11:41 Dose: Not Given Insulin Human Lispro (Insulin Lispro 100 Unit/Ml 3 Ml Vial) 0 unit SUBCUT QIDACHS [facility]; Protocol Last Admin: 08/02/22 11:41 Dose: Not Given Metoprolol Tartrate (Metoprolol Tartrate 25 Mg Tablet) 25 mg PO BID [facility]; Protocol Last Admin: 08/02/22 08:23 Dose: 25 mg Ondansetron HCl (Ondansetron Hcl 4 Mg/2 Ml Vial) 4 mg IVPUSH Q8H PRN PRN Reason: Nausea and Vomiting Pantoprazole Sodium (Pantoprazole Sodium 40 Mg/10 Ml Vial) 40 mg IVPUSH BID@0630,1630 [facility] Last Admin: 08/02/22 06:04 Dose: 40 mg Pharmacy Consult (Consult Rx Perform Med Rec) 1 each MISCELLANE ONCE PRN PRN Reason: Consult order Sodium Bicarbonate (Sodium Bicarbonate 650 Mg Tablet) 650 mg PO BID [facility] Last Admin: 08/02/22 08:24 Dose: 650 mg Sodium Chloride (0.9 % Sodium Chloride Flush 3 Ml Syringe) 3 ml IVFLUSH QSHIFT [facility] Last Admin: 08/02/22 06:53 Dose: Not Given Vitamin D (Cholecalciferol (Vitamin D3) 25 Mcg Tablet) 50 mcg PO DAILY [facility] Last Admin: 08/02/22 08:24 Dose: 50 mcg Home Medications Medication Instructions Recorded Confirmed Last Taken Type metoprolol tartrate 25 mg tablet 25 mg PO BID 03/17/20 08/01/22 07/11/22 History simvastatin 40 mg tablet 40 mg PO BEDTIME 03/17/20 08/01/22 07/11/22 History blood sugar diagnostic (OneTouch #10 ea 11/11/20 08/01/22 Unknown History Verio test strips) pantoprazole 20 mg tablet,delayed 20 mg PO DAILY 11/11/20 08/01/22 07/11/22 History release glipizide 2.5 mg tablet, extended 2.5 mg PO DAILY 12/19/20 08/01/22 07/11/22 History release 24 hr cholecalciferol (vitamin D3) 50 50 mcg PO DAILY 07/11/22 08/01/22 07/11/22 History mcg (2,000 unit) tablet dulaglutide 4.5 mg/0.5 mL 4.5 mg subcut WE 07/11/22 08/01/22 07/11/22 History subcutaneous pen injector (Trulicity) empagliflozin 10 mg tablet 10 mg PO DAILY 07/11/22 08/01/22 07/11/22 History (Jardiance) Physical Exam Vital Signs: Vital Signs: Last Vital Signs Temp 96.6 F L 08/02/22 12:56 Pulse 81 08/02/22 12:56 Resp 16 08/02/22 12:56 BP 108/56 L 08/02/22 12:56 Pulse Ox 99 08/02/22 12:56 O2 Del Method Room Air 08/02/22 12:56 BMI result Body Mass Index 26.2 Results Labs 08/02/22 06:18 08/02/22 06:18 Labs: Abnormal lab results 08/01/22 08/01/22 08/01/22 Range/Units 03:27 16:12 19:36 RBC (4.60-5.80) X10*6/uL Hgb (14.0-18.0) g/dl Hct (42.0-52.0) % Chloride (96-108) mmol/L Carbon Dioxide (22-29) mmol/L BUN (9-16) mg/dL Creatinine (0.5-1.4) mg/dL POC Glucose 159 H 137 H (60-115) mg/dL Random Glucose (60-115) mg/dL Crossmatch See Detail 08/02/22 08/02/22 08/02/22 Range/Units 06:18 06:18 07:12 RBC 2.51 L (4.60-5.80) X10*6/uL Hgb 7.6 L (14.0-18.0) g/dl Hct 23.5 L (42.0-52.0) % Chloride 109 H (96-108) mmol/L Carbon Dioxide 18 L (22-29) mmol/L BUN 65 H (9-16) mg/dL Creatinine 3.35 H (0.5-1.4) mg/dL POC Glucose 183 H (60-115) mg/dL Random Glucose 191 H (60-115) mg/dL Crossmatch 08/02/22 Range/Units 11:18 RBC (4.60-5.80) X10*6/uL Hgb (14.0-18.0) g/dl Hct (42.0-52.0) % Chloride (96-108) mmol/L Carbon Dioxide (22-29) mmol/L BUN (9-16) mg/dL Creatinine (0.5-1.4) mg/dL POC Glucose 160 H (60-115) mg/dL Random Glucose (60-115) mg/dL Crossmatch Short CBC 08/02/22 Range/Units 06:18 WBC 9.0 (4.8-10.8) X10*3/uL Hgb 7.6 L (14.0-18.0) g/dl Hct 23.5 L (42.0-52.0) % Plt Count 161 (160-400) X10*3/uL BMP 08/02/22 06:18 Sodium 142 Potassium 4.6 Chloride 109 H Carbon Dioxide 18 L BUN 65 H Creatinine 3.35 H Calcium 8.5 Urine 08/01/22 Range/Units 03:29 Urine Color Straw Urine Appearance Hazy Urine pH 7.0 (5.0-9.0) Ur Specific [place] 1.020 (1.005-1.025) Urine Protein 300 (3+) H (Neg-Trace) mg/dL Urine Glucose (UA) >=1000 H (Negative) mg/dL All other labs normal. Assessment and Plan Time Spent With Patient Time: Total time managing care of this patient today ____ minutes. Procedures Date of Service Date of Service: 08/02/22
--- NOTE | 2022-08-02 14:03 | HO.ANESPROP2 ---
HPI - Anesthesia Eval Consult details Narrative: for EGD to r/o UGI bleeding. Admitted yesterday w gross hematuria. Hb 9.0 on admission (was 11 a week ago), was transfused one unit RBC yest, Hb this morning was 7.6. Stool was black and strongly heme positive on ED physician's exam, altho patient is taking iron. PMFSH Active Problems Active Problems: All Active Problems Cao catheter problem (Acute) Encounter for interrogation of cardiac pacemaker (Acute) Symptomatic bradycardia (Acute) Congestive heart failure with LV diastolic dysfunction, NYHA class 3 (Acute) Type 2 diabetes mellitus with unspecified complications (Acute) Mitral annular calcification (Acute) Diabetic foot ulcer (Acute) Cellulitis of foot, right (Acute) CKD (chronic kidney disease) stage 3, GFR 30-59 ml/min (Acute) Diabetic osteomyelitis (Acute) Metabolic acidosis (Acute) Acute urinary retention (Acute) Hematuria (Acute) Bladder mass (Acute) Acute GI bleeding (Acute) Anemia (Acute) Intertriginous candidiasis (Acute) Acute kidney injury superimposed on CKD (Acute) Gross hematuria (Acute) Ulcer of right 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 (Acute) PAD (peripheral artery disease) (Acute) Infection of right foot (Acute) Acute osteomyelitis (Acute) History of atherectomy (Acute) Heart block (Acute) Past Medical History Medical History (Updated 08/02/22 @ 14:23 by Devin Feliciano MD) Acute osteomyelitis Back pain Decubitus ulcer, heel Diabetes mellitus Gram-negative bacteremia H/O cardiac pacemaker Heart block History of COVID-19 Hyperlipidemia Hypertension Infection of right foot Iron deficiency anemia PAD (peripheral artery disease) Ulcer of left heel Ulcer of right 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 Urinary retention Narrative: The patient has major heart disease and severe CKD. Family History Family History Brother Testicular cancer Family history of problems with anesthesia: No Surgical History Surgical History History of atherectomy History of back surgery History of esophagogastroduodenoscopy History of left hip replacement Hx of cataract extraction Hx of colonoscopy History of Problems with Anesthesia: No Social History Social History Household Members: Spouse Household Members Other:: 2 Housing: House Do you presently have visiting nurse or other home services: Yes ([facility]) Alcohol intake: former Patient Tobacco Use Status: Former Tobacco user Tobacco use type: Cigarette Smoked in Last 30 Days: No Use of substances other than those prescribed or required for medical reasons: No Currently Displaying Signs/Symptoms of Drug Intoxication Withdrawal: No Have you been hit, kicked, punched, or otherwise hurt by someone within the past year? If so, by whom?: No Do you feel safe in your current relationship?: Yes Is there a partner from a previous relationship who is making you feel unsafe now?: No Are you made to feel afraid or neglected: No Are you DNR?: No Advance Directives: Yes Advance Directives on File: Yes Advance Directives Date on File: 07/12/22 Do you have thoughts of harming others: None Do you have a plan to hurt others: No Plan Recently lost weight without trying: No Eating poorly because of decreased appetite: No Nutrition Risks: No Nutritional Risk service: No Current occupational status: retired Meds Allergies Allergy/AdvReac Type Severity Reaction Status Date / Time lisinopril [LISINOPRIL] Allergy Severe ANGIOEDEMA Verified 08/01/22 00:51 Active Medications: Current Medications Acetaminophen (Acetaminophen 325 Mg Tablet) 650 mg PO Q6H PRN PRN Reason: Pain, Mild (Pain Scale 1-3) Atorvastatin Calcium (Atorvastatin Calcium 20 Mg Tablet) 20 mg PO BEDTIME [facility] Last Admin: 08/01/22 19:36 Dose: 20 mg Docusate Sodium (Docusate Sodium 100 Mg Capsule) 100 mg PO DAILY PRN PRN Reason: Constipation Doxazosin Mesylate (Doxazosin Mesylate 2 Mg Tablet) 4 mg PO BEDTIME JIL; Protocol Last Admin: 08/01/22 19:36 Dose: 4 mg Empagliflozin (Empagliflozin 10 Mg Tablet) 10 mg PO DAILY [facility] Last Admin: 08/02/22 08:23 Dose: 10 mg Finasteride (Finasteride 5 Mg Tablet) 5 mg PO DAILY [facility] Last Admin: 08/02/22 08:23 Dose: 5 mg Glucose (Glucose Gel 15 Gm Gel..Gram.) 15 gm PO Q15M PRN; Protocol PRN Reason: per Hypoglycemia Standing Ord. Glucose (Glucose Gel 15 Gm Gel..Gram.) 15 gm PO Q15M PRN; Protocol PRN Reason: per Hypoglycemia Standing Ord. Dextrose (D10) 250 mls @ 750 mls/hr IV Q15M PRN; Protocol PRN Reason: per Hypoglycemia Standing Ord. Lactated Ringer's (Lr) 1,000 mls @ 100 mls/hr IVCONT .Q10H [facility] Last Admin: 08/02/22 02:55 Dose: 100 mls/hr Meropenem 500 mg/ Sodium (Chloride) 50 mls @ 100 mls/hr IV Q12H [facility] Last Infusion: 08/02/22 09:11 Dose: Infused Dextrose (D10) 250 mls @ 750 mls/hr IV Q15M PRN; Protocol PRN Reason: per Hypoglycemia Standing Ord. Insulin Human Lispro (Insulin Lispro 100 Unit/Ml 3 Ml Vial) 0 unit SUBCUT QIDACHS [facility]; Protocol Last Admin: 08/02/22 11:41 Dose: Not Given Insulin Human Lispro (Insulin Lispro 100 Unit/Ml 3 Ml Vial) 0 unit SUBCUT QIDACHS [facility]; Protocol Last Admin: 08/02/22 11:41 Dose: Not Given Metoprolol Tartrate (Metoprolol Tartrate 25 Mg Tablet) 25 mg PO BID [facility]; Protocol Last Admin: 08/02/22 08:23 Dose: 25 mg Ondansetron HCl (Ondansetron Hcl 4 Mg/2 Ml Vial) 4 mg IVPUSH Q8H PRN PRN Reason: Nausea and Vomiting Pantoprazole Sodium (Pantoprazole Sodium 40 Mg/10 Ml Vial) 40 mg IVPUSH BID@0630,1630 [facility] Last Admin: 08/02/22 06:04 Dose: 40 mg Pharmacy Consult (Consult Rx Perform Med Rec) 1 each MISCELLANE ONCE PRN PRN Reason: Consult order Sodium Bicarbonate (Sodium Bicarbonate 650 Mg Tablet) 650 mg PO BID [facility] Last Admin: 08/02/22 08:24 Dose: 650 mg Sodium Chloride (0.9 % Sodium Chloride Flush 3 Ml Syringe) 3 ml IVFLUSH QSHIFT [facility] Last Admin: 08/02/22 06:53 Dose: Not Given Vitamin D (Cholecalciferol (Vitamin D3) 25 Mcg Tablet) 50 mcg PO DAILY [facility] Last Admin: 08/02/22 08:24 Dose: 50 mcg Home Medications Medication Instructions Recorded Confirmed Last Taken Type metoprolol tartrate 25 mg tablet 25 mg PO BID 12/31/20 05/17/23 04/26/23 History simvastatin 40 mg tablet 40 mg PO BEDTIME 03/17/20 08/01/22 07/11/22 History blood sugar diagnostic (OneTouch #10 ea 11/11/20 08/01/22 Unknown History Verio test strips) pantoprazole 20 mg tablet,delayed 20 mg PO DAILY 11/11/20 08/01/22 07/11/22 History release glipizide 2.5 mg tablet, extended 2.5 mg PO DAILY 12/19/20 08/01/22 07/11/22 History release 24 hr cholecalciferol (vitamin D3) 50 50 mcg PO DAILY 07/11/22 08/01/22 07/11/22 History mcg (2,000 unit) tablet dulaglutide 4.5 mg/0.5 mL 4.5 mg subcut WE 07/11/22 08/01/22 07/11/22 History subcutaneous pen injector (Trulicity) empagliflozin 10 mg tablet 10 mg PO DAILY 07/11/22 08/01/22 07/11/22 History (Jardiance) Exam Exam Date and Time: August 02, 2022 1403 Height,Weight and Vital Signs: Height 5 ft 9 in Weight 80.6 kg Last Vital Signs Temp 96.6 F L 08/02/22 12:56 Pulse 81 08/02/22 12:56 Resp 16 08/02/22 12:56 BP 108/56 L 08/02/22 12:56 Pulse Ox 99 08/02/22 12:56 O2 Del Method Room Air 08/02/22 12:56 Pertinent Lab Results Pertinent Lab Results: Laboratory Tests 08/01/22 08/01/22 08/01/22 01:07 01:07 03:27 WBC 14.0 H RBC 2.99 L Hgb 9.0 L Hct 26.9 L D MCV 90.0 MCH 30.1 MCHC 33.5 RDW 14.3 Plt Count 238 MPV 10.5 Immature Gran % (Auto) 0.5 H Neut % (Auto) 88.1 H Lymph % (Auto) 4.3 L [place] % (Auto) 6.1 Eos % (Auto) 0.6 Baso % (Auto) 0.4 Lymph # (Auto) 0.6 L [place] # (Auto) 0.9 Eos # (Auto) 0.1 Baso # (Auto) 0.1 Abs Immat Gran (auto) 0.07 H Absolute Neuts (auto) 12.3 H Absolute Nucleated RBC 0.000 Nucleated RBC % (auto) 0.0 Sodium 139 Potassium 5.0 Chloride 107 Carbon Dioxide 21 L Anion Gap 16 BUN 68 H Creatinine 3.50 H Estim Creat Clear Calc 18.5 Estimated GFR 17 POC Glucose Random Glucose 246 H Lactic Acid Calcium 8.7 Total Bilirubin 0.6 Direct Bilirubin 0.2 AST 25 ALT 15 Alkaline Phosphatase 93 Total Protein 6.0 L Albumin 3.1 L Lipase 47 Urine Color Urine Appearance Urine pH Ur Specific [place] Urine Protein Urine Glucose (UA) Urine Ketones Urine Blood Urine Nitrite Ur Leukocyte Esterase Urine RBC Urine WBC Ur Squamous Epith Cells Urine Bacteria Hyaline Casts Ur Random Sodium Urine Creatinine Stool Occult Blood Blood Type O Positive Antibody Screen NEGATIVE Crossmatch See Detail 08/01/22 08/01/22 08/01/22 03:29 03:29 07:00 WBC RBC Hgb Hct MCV MCH MCHC RDW Plt Count MPV Immature Gran % (Auto) Neut % (Auto) Lymph % (Auto) [place] % (Auto) Eos % (Auto) Baso % (Auto) Lymph # (Auto) [place] # (Auto) Eos # (Auto) Baso # (Auto) Abs Immat Gran (auto) Absolute Neuts (auto) Absolute Nucleated RBC Nucleated RBC % (auto) Sodium Potassium Chloride Carbon Dioxide Anion Gap BUN Creatinine Estim Creat Clear Calc Estimated GFR POC Glucose 146 H Random Glucose Lactic Acid Calcium Total Bilirubin Direct Bilirubin AST ALT Alkaline Phosphatase Total Protein Albumin Lipase Urine Color Straw Urine Appearance Hazy Urine pH 7.0 Ur Specific [place] 1.020 Urine Protein 300 (3+) H Urine Glucose (UA) >=1000 H Urine Ketones Trace Urine Blood Large (3+) H Urine Nitrite Positive H Ur Leukocyte Esterase Trace H Urine RBC >20 H Urine WBC 6-10 H Ur Squamous Epith Cells 3-5 Urine Bacteria Trace Hyaline Casts 0-2 Ur Random Sodium Urine Creatinine Stool Occult Blood POSITIVE Blood Type Antibody Screen Crossmatch 08/01/22 08/01/22 08/01/22 08:08 08:08 08:08 WBC 11.2 H RBC 2.89 L Hgb 8.6 L 8.6 L Hct 26.4 L 25.9 L MCV 91.3 MCH 29.8 MCHC 32.6 RDW 14.4 Plt Count 195 MPV 10.7 Immature Gran % (Auto) 0.4 Neut % (Auto) 82.9 H Lymph % (Auto) 8.6 L [place] % (Auto) 6.1 Eos % (Auto) 1.6 Baso % (Auto) 0.4 Lymph # (Auto) 1.0 L [place] # (Auto) 0.7 Eos # (Auto) 0.2 Baso # (Auto) 0.0 Abs Immat Gran (auto) 0.04 H Absolute Neuts (auto) 9.3 H Absolute Nucleated RBC 0.000 Nucleated RBC % (auto) 0.0 Sodium 140 Potassium 4.3 Chloride 109 H Carbon Dioxide 23 Anion Gap 12 BUN 64 H Creatinine 3.39 H Estim Creat Clear Calc 19.1 Estimated GFR 18 POC Glucose Random Glucose 142 H Lactic Acid Calcium 8.4 Total Bilirubin Direct Bilirubin AST ALT Alkaline Phosphatase Total Protein Albumin Lipase Urine Color Urine Appearance Urine pH Ur Specific [place] Urine Protein Urine Glucose (UA) Urine Ketones Urine Blood Urine Nitrite Ur Leukocyte Esterase Urine RBC Urine WBC Ur Squamous Epith Cells Urine Bacteria Hyaline Casts Ur Random Sodium Urine Creatinine Stool Occult Blood Blood Type Antibody Screen Crossmatch 08/01/22 08/01/22 08/01/22 08:08 08:38 11:05 WBC RBC Hgb Hct MCV MCH MCHC RDW Plt Count MPV Immature Gran % (Auto) Neut % (Auto) Lymph % (Auto) [place] % (Auto) Eos % (Auto) Baso % (Auto) Lymph # (Auto) [place] # (Auto) Eos # (Auto) Baso # (Auto) Abs Immat Gran (auto) Absolute Neuts (auto) Absolute Nucleated RBC Nucleated RBC % (auto) Sodium Potassium Chloride Carbon Dioxide Anion Gap BUN Creatinine Estim Creat Clear Calc Estimated GFR POC Glucose 146 H 149 H Random Glucose Lactic Acid 0.9 Calcium Total Bilirubin Direct Bilirubin AST ALT Alkaline Phosphatase Total Protein Albumin Lipase Urine Color Urine Appearance Urine pH Ur Specific [place] Urine Protein Urine Glucose (UA) Urine Ketones Urine Blood Urine Nitrite Ur Leukocyte Esterase Urine RBC Urine WBC Ur Squamous Epith Cells Urine Bacteria Hyaline Casts Ur Random Sodium Urine Creatinine Stool Occult Blood Blood Type Antibody Screen Crossmatch 08/01/22 08/01/22 08/01/22 11:47 11:47 16:12 WBC RBC Hgb Hct MCV MCH MCHC RDW Plt Count MPV Immature Gran % (Auto) Neut % (Auto) Lymph % (Auto) [place] % (Auto) Eos % (Auto) Baso % (Auto) Lymph # (Auto) [place] # (Auto) Eos # (Auto) Baso # (Auto) Abs Immat Gran (auto) Absolute Neuts (auto) Absolute Nucleated RBC Nucleated RBC % (auto) Sodium Potassium Chloride Carbon Dioxide Anion Gap BUN Creatinine Estim Creat Clear Calc Estimated GFR POC Glucose 159 H Random Glucose Lactic Acid Calcium Total Bilirubin Direct Bilirubin AST ALT Alkaline Phosphatase Total Protein Albumin Lipase Urine Color Urine Appearance Urine pH Ur Specific [place] Urine Protein Urine Glucose (UA) Urine Ketones Urine Blood Urine Nitrite Ur Leukocyte Esterase Urine RBC Urine WBC Ur Squamous Epith Cells Urine Bacteria Hyaline Casts Ur Random Sodium 100.0 Urine Creatinine 27.97 Stool Occult Blood Blood Type Antibody Screen Crossmatch 08/01/22 08/02/22 08/02/22 19:36 06:18 06:18 WBC 9.0 RBC 2.51 L Hgb 7.6 L Hct 23.5 L MCV 93.6 MCH 30.3 MCHC 32.3 RDW 14.8 Plt Count 161 MPV 11.3 Immature Gran % (Auto) Neut % (Auto) Lymph % (Auto) [place] % (Auto) Eos % (Auto) Baso % (Auto) Lymph # (Auto) [place] # (Auto) Eos # (Auto) Baso # (Auto) Abs Immat Gran (auto) Absolute Neuts (auto) Absolute Nucleated RBC 0.000 Nucleated RBC % (auto) 0.0 Sodium 142 Potassium 4.6 Chloride 109 H Carbon Dioxide 18 L Anion Gap 20 BUN 65 H Creatinine 3.35 H Estim Creat Clear Calc 17.5 Estimated GFR 18 POC Glucose 137 H Random Glucose 191 H Lactic Acid Calcium 8.5 Total Bilirubin Direct Bilirubin AST ALT Alkaline Phosphatase Total Protein Albumin Lipase Urine Color Urine Appearance Urine pH Ur Specific [place] Urine Protein Urine Glucose (UA) Urine Ketones Urine Blood Urine Nitrite Ur Leukocyte Esterase Urine RBC Urine WBC Ur Squamous Epith Cells Urine Bacteria Hyaline Casts Ur Random Sodium Urine Creatinine Stool Occult Blood Blood Type Antibody Screen Crossmatch 08/02/22 08/02/22 07:12 11:18 WBC RBC Hgb Hct MCV MCH MCHC RDW Plt Count MPV Immature Gran % (Auto) Neut % (Auto) Lymph % (Auto) [place] % (Auto) Eos % (Auto) Baso % (Auto) Lymph # (Auto) [place] # (Auto) Eos # (Auto) Baso # (Auto) Abs Immat Gran (auto) Absolute Neuts (auto) Absolute Nucleated RBC Nucleated RBC % (auto) Sodium Potassium Chloride Carbon Dioxide Anion Gap BUN Creatinine Estim Creat Clear Calc Estimated GFR POC Glucose 183 H 160 H Random Glucose Lactic Acid Calcium Total Bilirubin Direct Bilirubin AST ALT Alkaline Phosphatase Total Protein Albumin Lipase Urine Color Urine Appearance Urine pH Ur Specific [place] Urine Protein Urine Glucose (UA) Urine Ketones Urine Blood Urine Nitrite Ur Leukocyte Esterase Urine RBC Urine WBC Ur Squamous Epith Cells Urine Bacteria Hyaline Casts Ur Random Sodium Urine Creatinine Stool Occult Blood Blood Type Antibody Screen Crossmatch Airway Mallampati Class: III TM Dist: <=3cm Neck ROM: Full Heart: As noted above. Lungs: CTA Other: The patient is clearly at least mildly confused. Assessment and Plan Assessment Anesthesia Assessment: Anesthesia Plan Discussed (With the patient. Unable to reach his by telephone) and Chart Reviewed (Pt is high risk, but the procedure clearly needs to be done.) Final Anesthetic Review Family History of Problems with Anesthesia: No History of Problems with Anesthesia: No NPO: Yes ASA Class: IV Final Preanesthetic Review: No Changes in Pt Med Stat, Meds/Allgs Chart Reviewed, Consent Obtained/Reviewed (The patient has given his consent.) and Anes Risks/Benef Reviewed Patient Risk: High Procedure Risk: Intermediate Anesthetic Plan Anesthetic Plan: MAC: and Agree w/ Assess. and Plan Disposition: Standard PACU
--- NOTE | 2022-08-02 14:51 | W.PM.OPN ---
Operative Note Operative Note Date of Service: 08/02/22 Narrative: FLEXIBLE TRANSORAL UPPER GASTROINTESTINAL ENDOSCOPY WITH BIOPSIES Pre-op diagnosis: Anemia, Heme Positive stools Post-op diagnosis: Non-bleeding gastric AVMs Endoscopist:? Devin Feliciano MD Anesthesia:?MAC Consent: Indications for the procedure and potential complications of bleeding, perforation, reaction to medications and missed diagnosis were discussed with the patient and informed consent was obtained. Instrument: Olympus GIF H 190 mid size upper endoscope Monitoring: Vital signs and clinical assessment, continuous EKG monitoring, Pulse oximetry, Carbon Dioxide monitoring and blood pressure monitoring were done throughout the procedure. Procedure: The patient was placed in the left lateral decubitis position and pre-procedure medications were administered and a bite block was placed. The endoscope was inserted into the mouth and advanced under direct vision to the third part of duodenum. A careful inspection was made as the upper endoscope was withdrawn including a retroflexed examination of the proximal stomach; Findings and interventions are described below. Findings: Larynx: Normal Esophagus: GE junction at 40 cms. No esophagitis or Guerrero's. Stomach: Mild gastric erythema with three 5-7 mm non-bleeding AVMs. Grade 2 flap valve on retroflexed examination of the cardia. Duodenum: Normal bulb and descending duodenum Intervention: None since pt is on Plavix Impression and Post Procedure Diagnosis: Endoscopy Findings: STOMACH: Mild gastric erythema with three 5-7 mm non-bleeding AVMs. No blood seen in the UGI tract during EGD. Anemia is likely related to persistent hematuria. Plan: Monitor H &H and transfuse prn. Continue IV PPI twice daily
[2022-08-02 16:30] LABS: Glucose, Whole Blood 169 mg/dL (60-115)
[2022-08-02 17:05] LABS: Hematocrit 23.8 % (42.0-52.0); Hemoglobin 7.7 g/dl (14.0-18.0)
[2022-08-02] MEDS: Doxazosin Mesylate 2 MG TABLET 4 MG PO (21:20)
[2022-08-02] MEDS: Atorvastatin Calcium 20 MG TABLET PO (21:20)
[2022-08-03] VITALS (7 sets, daily range): BP systolic 100–116; BP diastolic 53–71; PULSE 66–102; RESP 16–20; TEMP 36–36.3; O2SAT 96–100
[2022-08-03 00:15] LABS: Glucose, Whole Blood 235 mg/dL (60-115)
[2022-08-03] MEDS: Lactated Ringers 1,000 ML 100 ML IVCONT (01:50)
[2022-08-03 03:23] LABS: Hematocrit 24.5 % (42.0-52.0); Hemoglobin 8.2 g/dl (14.0-18.0); Mean Corpuscular HGB Conc 33.5 g/dl (31.0-36.0); Mean Corpuscular Hemoglobin 31.1 pg (27.0-33.0); Mean Corpuscular Volume 92.8 fL (80.0-98.0); Mean Platelet Volume 10.9 fL (9.4-12.4); Platelet Count 145 X10*3/uL (160-400); Red Blood Count 2.64 X10*6/uL (4.60-5.80); Red Cell Distribution Width 14.4 % (11.0-16.0); White Blood Count 9.2 X10*3/uL (4.8-10.8)
[2022-08-03 03:41] LABS: Anion Gap 14 (12-20); Blood Urea Nitrogen 62 mg/dL (9-16); Calcium 8.3 mg/dL (8.4-10.2); Carbon Dioxide 22 mmol/L (22-29); Chloride 109 mmol/L (96-108); Creatinine Clr Calc Pharmacy 19.3; Estimated Glomerular Filt Rate 20; Glucose Random 150 mg/dL (60-115); Potassium 4.2 mmol/L (3.3-5.1); Sodium 141 mmol/L (135-145)
[2022-08-03] MEDS: Pantoprazole Sodium 40 MG/10 ML VIAL IVPUSH ×2 (05:38→17:51)
[2022-08-03 07:37] LABS: Glucose, Whole Blood 159 mg/dL (60-115)
[2022-08-03] MEDS: Finasteride 5 MG TABLET PO (08:37)
[2022-08-03] MEDS: Sodium Bicarbonate 650 MG TABLET PO ×2 (08:37→20:16)
[2022-08-03] MEDS: Empagliflozin 10 MG TABLET PO (08:37)
[2022-08-03] MEDS: Cholecalciferol (Vitamin D3) 25 MCG TABLET 50 MCG PO (08:37)
[2022-08-03] MEDS: Metoprolol Tartrate 12.5 MG HALFTAB PO ×2 (08:37→20:16)
[2022-08-03] MEDS: Insulin Lispro 100 UNIT/ML 3 ML VIAL SUBCUT ×3 (08:38→20:17)
[2022-08-03] MEDS: 0.9 % Sodium Chloride Flush 3 ML SYRINGE IVFLUSH ×3 (08:39→20:17)
--- NOTE | 2022-08-03 09:14 | HO.POSTANES ---
Post Anesthesia Evaluation Post Anesthesia Evaluation Vital Signs: Vital Signs Temp Pulse Resp BP Pulse Ox O2 Del Method 08/03/22 07:03 97.3 F 102 H 20 109/58 L 98 Room Air 08/03/22 03:20 96.8 F 99 16 104/53 L 100 Room Air 08/03/22 00:50 97.0 F 66 17 116/71 08/02/22 22:49 97.1 F 70 16 116/61 08/02/22 22:30 96.8 F 67 16 111/56 L Anesthesia: Monitored Mental Status: Awake Pain Control: Satisfactory Nausea/Vomiting: None Hydration: Adequate Anesthesia-Related Issues: No Anes. Related Issues
--- NOTE | 2022-08-03 09:40 | HO.VASCPN ---
Subjective Subjective Date of Service: 08/03/22 Patient reports: no new complaints and feels better Interval history: Very pleasant 81-year-old gentleman well known to me with peripheral vascular disease. He is presented with GI bleed along with hematuria. He is currently undergoing medical management and treatment by GI and Urology. He has a chronic nonhealing right foot ulceration. Plavix and aspirin are being held. Upper scope demonstrated few small AVMs but was not suspected to be the source. Appears to be more urologic in nature. Physical Exam Vital Signs: Vital Signs: Last Vital Signs Temp 97.3 F 08/03/22 07:03 Pulse 102 H 08/03/22 07:03 Resp 20 08/03/22 07:03 BP 109/58 L 08/03/22 07:03 Pulse Ox 98 08/03/22 07:03 O2 Del Method Room Air 08/03/22 07:03 BMI result Body Mass Index 26.2 Const: General: cooperative, healthy appearing and no acute distress Orientation/consciousness: oriented to person, oriented to place and oriented to time HEENT: Head: Yes normal to inspection Neck: Carotids: no bruits Chest: Chest palpation & inspection: normal inspection of the chest Resp: Effort & Inspection: normal respiratory effort and able to speak in complete sentences Auscultation: clear to auscultation bilaterally Cardio: Rate: regular rate Heart sounds: S1 normal heart sound present and S2 normal heart sound present GI: Inspection: Yes normal to inspection Skin: Other: Right great toe ulcer General skin exam: no rashes or lesions noted Wounds: no wounds Neuro: General: oriented to person, oriented to place, oriented to time and CN's II-XI intact bilaterally Extrem: General: Yes normal to inspection, Yes full ROM and Yes no clubbing, cyanosis or edema Psych: Appearance: grossly normal and well kempt Speech and movement: Normal speech and movement present Affect: normal affect Progress Note: A&P Assessment and plan (1) PAD (peripheral artery disease): Status: Acute Assessment and Plan: In short patient had a prior endovascular intervention. Unfortunately aspirin and Plavix had to be held due to the hematuria. Bleeding appears to be more urologic in nature. Plan is for outpatient cystoscopy. At the current time would continue with just local wound care until the bleeding situation resolves. Unfortunately he may end up with an amputation due to this. This was discussed in detail with the patient. He demonstrated an understanding of this. Thank you for allowing us to participate in his care. Time Spent With Patient Time: Total time managing care of this patient today ____ minutes. Procedures Date of Service Date of Service: 08/03/22 Quality Stroke Does the patient have a stroke diagnosis?: No VTE Prior VTE?: No VTE Risk Level:: Medical - moderate - high VTE Device Contraindication: N/A - Device Ordered VTE Drug Contraindication: Treatment Not Indicated
[2022-08-03 09:54] LABS: Hematocrit 23.2 % (42.0-52.0); Hemoglobin 7.8 g/dl (14.0-18.0); Mean Corpuscular HGB Conc 33.6 g/dl (31.0-36.0); Mean Corpuscular Hemoglobin 31.6 pg (27.0-33.0); Mean Corpuscular Volume 93.9 fL (80.0-98.0); Mean Platelet Volume 11.2 fL (9.4-12.4); Platelet Count 129 X10*3/uL (160-400); Red Blood Count 2.47 X10*6/uL (4.60-5.80); Red Cell Distribution Width 14.5 % (11.0-16.0); White Blood Count 8.5 X10*3/uL (4.8-10.8)
[2022-08-03 11:27] LABS: Glucose, Whole Blood 214 mg/dL (60-115)
--- NOTE | 2022-08-03 12:26 | MHC.CM.PN ---
per rounds pt has hematuria and will not be ready for dc
--- NOTE | 2022-08-03 12:37 | PM.PNNEP ---
Subjective Subjective Date of Service: 08/03/22 Interval history: seen and examined sitting out of bed nop complaints Physical Exam Vital Signs: Vital Signs: Last Vital Signs Temp 97.3 F 08/03/22 07:03 Pulse 102 H 08/03/22 07:03 Resp 20 08/03/22 07:03 BP 109/58 L 08/03/22 07:03 Pulse Ox 98 08/03/22 07:03 O2 Del Method Room Air 08/03/22 07:03 BMI result Body Mass Index 26.2 Const: General: alert and awake HEENT: Head: Yes normocephalic and Yes atraumatic Neck: Neck: Yes supple Resp: Effort & Inspection: normal respiratory effort Cardio: Heart sounds: S1 normal heart sound present and S2 normal heart sound present GI: Palpation (GI): Soft to palpation and nontender Extrem: Right upper extremity: no edema Objective Data Labs 08/03/22 09:47 08/03/22 03:06 Labs: Laboratory Results - last 24 hr 08/01/22 08/02/22 08/02/22 03:27 16:26 16:45 WBC RBC Hgb 7.7 L Hct 23.8 L MCV MCH MCHC RDW Plt Count MPV Absolute Nucleated RBC Nucleated RBC % (auto) Sodium Potassium Chloride Carbon Dioxide Anion Gap BUN Creatinine Estim Creat Clear Calc Estimated GFR POC Glucose 169 H Random Glucose Calcium Blood Type O Positive Antibody Screen NEGATIVE Crossmatch See Detail 08/02/22 08/03/22 08/03/22 20:14 03:06 03:06 WBC 9.2 RBC 2.64 L Hgb 8.2 L Hct 24.5 L MCV 92.8 MCH 31.1 MCHC 33.5 RDW 14.4 Plt Count 145 L MPV 10.9 Absolute Nucleated RBC 0.000 Nucleated RBC % (auto) 0.0 Sodium 141 Potassium 4.2 Chloride 109 H Carbon Dioxide 22 Anion Gap 14 BUN 62 H Creatinine 3.04 H Estim Creat Clear Calc 19.3 Estimated GFR 20 POC Glucose 235 H Random Glucose 150 H Calcium 8.3 L Blood Type Antibody Screen Crossmatch 08/03/22 08/03/22 08/03/22 07:08 09:47 11:24 WBC 8.5 RBC 2.47 L Hgb 7.8 L Hct 23.2 L MCV 93.9 MCH 31.6 MCHC 33.6 RDW 14.5 Plt Count 129 L MPV 11.2 Absolute Nucleated RBC 0.000 Nucleated RBC % (auto) 0.0 Sodium Potassium Chloride Carbon Dioxide Anion Gap BUN Creatinine Estim Creat Clear Calc Estimated GFR POC Glucose 159 H 214 H Random Glucose Calcium Blood Type Antibody Screen Crossmatch Microbiology Microbiology Results: Microbiology 08/01/22 08:08 Blood - Venous Blood Culture - Preliminary No growth after 48 hours. 08/01/22 08:08 Blood - Venous Blood Culture - Preliminary No growth after 48 hours. 08/01/22 Unknown Urine Catheterized - Straight Catheter Urine Culture - Final No growth. Procedures Date of Service Date of Service: 08/03/22 Assessment & Plan Assessment and plan (1) DEON (acute kidney injury): Status: Resolved (2) CKD (chronic kidney disease) stage 3, GFR 30-59 ml/min: Status: Acute Plan Scr better DEON due to: -obstructive uropathy -renal hypoperfusion renal US showed b/l hydronephrosis known CKD baseline Scr ~ 2 mg/dl REC Cao CBI follow kidney function and elecvtrolytes Time Spent With Patient Time: Total time managing care of this patient today ____ minutes. Progress Note: Quality Stroke Does the patient have a stroke diagnosis?: No
--- NOTE | 2022-08-03 12:47 | MHC.CM.PN ---
per rounds pt not ready for d plan remains home
--- NOTE | 2022-08-03 14:26 | HO.PM.IMPN ---
Subjective Subjective Date of Service: 08/03/22 Interval History: seen and examined this morning follow up for hematuria denies abdominal pain, fever or chills Review of Systems Review of Systems: Yes all other systems are reviewed and are negative Constitutional Constitutional: Denies chills and Denies fever(s) ENT Ears, Nose, Mouth, and Throat: Denies dizziness Cardiovascular Cardiovascular: Denies chest pain Gastrointestinal Gastrointestinal: Denies abdominal pain and Denies diarrhea Neurologic Neurologic: Denies dizziness Physical Exam Vital Signs: Vital Signs: Last Vital Signs Temp 97.3 F 08/03/22 07:03 Pulse 102 H 08/03/22 07:03 Resp 20 08/03/22 07:03 BP 109/58 L 08/03/22 07:03 Pulse Ox 98 08/03/22 07:03 O2 Del Method Room Air 08/03/22 07:03 BMI result Body Mass Index 26.2 Const: Other: oriented but intermittently confused to situation General: comfortable, no acute distress, alert and awake Nutritional Appearance: average body habitus Orientation/consciousness: patient oriented x3 Resp: Effort & Inspection: normal respiratory effort and able to speak in complete sentences Auscultation: clear to auscultation bilaterally Cardio: Rate: regular rate GI: Inspection: No distended Palpation (GI): Soft to palpation and nontender : Other: loya in place - hematuria Skin: Other: right foot. no fluctuance Neuro: General: patient oriented x3, moves all extremities and CN's II-XI intact bilaterally Extrem: General: Yes no pedal edema Objective Data Active Medications Acetaminophen (Acetaminophen 325 Mg Tablet) 650 mg PO Q6H PRN PRN Reason: Pain, Mild (Pain Scale 1-3) Atorvastatin Calcium (Atorvastatin Calcium 20 Mg Tablet) 20 mg PO BEDTIME [facility] Last Admin: 08/02/22 21:20 Dose: 20 mg Documented By: KENNETH Docusate Sodium (Docusate Sodium 100 Mg Capsule) 100 mg PO DAILY PRN PRN Reason: Constipation Doxazosin Mesylate (Doxazosin Mesylate 2 Mg Tablet) 4 mg PO BEDTIME [facility]; Protocol Last Admin: 08/02/22 21:20 Dose: 4 mg Documented By: KENNETH Empagliflozin (Empagliflozin 10 Mg Tablet) 10 mg PO DAILY [facility] Last Admin: 08/03/22 08:37 Dose: 10 mg Documented By: HO.LEWISK Finasteride (Finasteride 5 Mg Tablet) 5 mg PO DAILY [facility] Last Admin: 08/03/22 08:37 Dose: 5 mg Documented By: FAMILIA Glucose (Glucose Gel 15 Gm Gel..Gram.) 15 gm PO Q15M PRN; Protocol PRN Reason: per Hypoglycemia Standing Ord. Glucose (Glucose Gel 15 Gm Gel..Gram.) 15 gm PO Q15M PRN; Protocol PRN Reason: per Hypoglycemia Standing Ord. Dextrose (D10) 250 mls @ 750 mls/hr IV Q15M PRN; Protocol PRN Reason: per Hypoglycemia Standing Ord. Meropenem 500 mg/ Sodium (Chloride) 50 mls @ 100 mls/hr IV Q12H [facility] Last Infusion: 08/03/22 09:10 Dose: 0 mls/hr Documented By: FAMILIA Dextrose (D10) 250 mls @ 750 mls/hr IV Q15M PRN; Protocol PRN Reason: per Hypoglycemia Standing Ord. Insulin Human Lispro (Insulin Lispro 100 Unit/Ml 3 Ml Vial) 0 unit SUBCUT [facility]; Protocol Last Admin: 08/03/22 12:16 Dose: 4 unit Documented By: FAMILIA Insulin Human Lispro (Insulin Lispro 100 Unit/Ml 3 Ml Vial) 0 unit [facility]; Protocol Last Admin: 08/03/22 12:15 Dose: Not Given Documented By: FAMILIA Non-Admin Reason: Duplicate Order Metoprolol Tartrate (Metoprolol Tartrate 12.5 Mg Halftab) 12.5 mg PO BID [facility]; Protocol Last Admin: 08/03/22 08:37 Dose: 12.5 mg Documented By: FAMILIA Ondansetron HCl (Ondansetron Hcl 4 Mg/2 Ml Vial) 4 mg IVPUSH Q8H PRN PRN Reason: Nausea and Vomiting Pantoprazole Sodium (Pantoprazole Sodium 40 Mg/10 Ml Vial) 40 mg IVPUSH BID@0630,1630 [facility] Last Admin: 08/03/22 05:38 Dose: 40 mg Documented By: KENNETH Pharmacy Consult (Consult Rx Perform Med Rec) 1 each MISCELLANE ONCE PRN PRN Reason: Consult order Sodium Bicarbonate (Sodium Bicarbonate 650 Mg Tablet) 650 mg PO BID [facility] Last Admin: 08/03/22 08:37 Dose: 650 mg Documented By: FAMILIA Sodium Chloride (0.9 % Sodium Chloride Flush 3 Ml Syringe) 3 ml IVFLUSH QSHIFT [facility] Last Admin: 08/03/22 08:39 Dose: 3 ml Documented By: FAMILIA Vitamin D (Cholecalciferol (Vitamin D3) 25 Mcg Tablet) 50 mcg PO DAILY [facility] Last Admin: 08/03/22 08:37 Dose: 50 mcg Documented By: FAMILIA Labs 08/03/22 09:47 08/03/22 03:06 Labs: Laboratory Results - last 24 hr 08/01/22 08/02/22 08/02/22 03:27 16:26 20:14 MCV MCH MCHC RDW Plt Count MPV Absolute Nucleated RBC Nucleated RBC % (auto) Anion Gap Estim Creat Clear Calc Estimated GFR POC Glucose 169 H 235 H Random Glucose Calcium Blood Type O Positive Antibody Screen NEGATIVE Crossmatch See Detail 08/03/22 08/03/22 08/03/22 03:06 03:06 07:08 MCV 92.8 MCH 31.1 MCHC 33.5 RDW 14.4 Plt Count 145 L MPV 10.9 Absolute Nucleated RBC 0.000 Nucleated RBC % (auto) 0.0 Anion Gap 14 Estim Creat Clear Calc 19.3 Estimated GFR 20 POC Glucose 159 H Random Glucose 150 H Calcium 8.3 L Blood Type Antibody Screen Crossmatch 08/03/22 08/03/22 09:47 11:24 MCV 93.9 MCH 31.6 MCHC 33.6 RDW 14.5 Plt Count 129 L MPV 11.2 Absolute Nucleated RBC 0.000 Nucleated RBC % (auto) 0.0 Anion Gap Estim Creat Clear Calc Estimated GFR POC Glucose 214 H Random Glucose Calcium Blood Type Antibody Screen Crossmatch Microbiology Microbiology Results: Microbiology 08/01/22 08:08 Blood Culture - Preliminary Blood - Venous No growth after 48 hours. 08/01/22 08:08 Blood Culture - Preliminary Blood - Venous No growth after 48 hours. 08/01/22 Unknown Urine Culture - Final Urine Catheterized - Straight Catheter No growth. Assessment and Plan (1) Hematuria: Status: Acute (2) Bladder mass: Status: Acute Plan 81-year-old male with past medical history of acute osteomyelitis recently discharged from the hospital on 6 weeks of ertapenem, as well as peripheral vascular disease status post SFA atherectomy in this month, was to be on Plavix and aspirin for 6 months presents to the hospital with gross hematuria, as well as positive stool occult # acute gross hematuria - in the setting of history of bladder mass as noted in his EMR - recently started on Plavix and aspirin for SFA atherectomy - Plavix, aspirin on hold - s/p 1U rbc 08/01, 2U rbc 08/02 - seen by urology - US showing b/l hydro ?bladder thickening. rec CBI. will need outpatient cystoscopy. started on finasteride and doxazosin - urine culture negative - follow CBC # acute GI bleed has positive stool occult. - started on pantoprazole IV b.i.d. - seen by GI - s/p EGD 08/02 with mild gastric erythema and non-bleeding AVMs, no bleeding seen in the UGI- anemia thought r/t to persistent hematuria # DEON on CKD3 # metabolic acidosis worsened since discharge, baseline of around 1.5, today 3.04 r/t obstructive uropathy/urinary retention - continue IV fluids - seen by nephrology - rec to start sodium bicarb, bicarb improving - follow BMP # urinary retention - status post Loya catheter in place - seen by urology - rec outpatient cystoscopy # acute on chronic anemia secondary to acute blood loss from hematuria as well as GI bleed - tranfuse prn - follow CBC # toxic metabolic encephalopathy related to DEON #hypotension likely r/t bleeding, no sepsis improved with blood transfusion dose of metoprolol decreased # recent acute osteomyelitis - wound cultures showed MSSA plus strep very dense - was to be on ertapenem x6 weeks since 07/16 - status post sharp incision and debridement by surgery - will switch to meropenem inpatient - infectious disease consulted - wound care - followed by vascular outpatient, recent procedure done as above # diabetes - continue sliding scale insulin, hold oral antihyperglycemics DVT prophylaxis: SCDs attending - dr. rushing given patient's need for further evaluation of hematuria as well as GI bleed patient required ongoing hospital stay for further management and monitoring Time Spent With Patient Time: Total time managing care of this patient today ____ minutes. Quality Stroke Does the patient have a stroke diagnosis?: No VTE Prior VTE?: No VTE Risk Level:: Medical - moderate - high VTE Device Contraindication: N/A - Device Ordered VTE Drug Contraindication: Treatment Not Indicated
[2022-08-03 15:46] LABS: Hematocrit 23.4 % (42.0-52.0); Hemoglobin 7.9 g/dl (14.0-18.0)
[2022-08-03 16:26] LABS: Glucose, Whole Blood 126 mg/dL (60-115)
[2022-08-03 19:55] LABS: Glucose, Whole Blood 177 mg/dL (60-115)
[2022-08-03] MEDS: Atorvastatin Calcium 20 MG TABLET PO (20:16)
[2022-08-03] MEDS: Doxazosin Mesylate 2 MG TABLET 4 MG PO (20:16)
[2022-08-04] VITALS (9 sets, daily range): BP systolic 86–127; BP diastolic 48–65; PULSE 84–100; RESP 16–18; TEMP 36–36.6; O2SAT 95–99
[2022-08-04] MEDS: Pantoprazole Sodium 40 MG/10 ML VIAL IVPUSH ×2 (05:43→16:38)
[2022-08-04 06:25] LABS: Anion Gap 15 (12-20); Blood Urea Nitrogen 58 mg/dL (9-16); Carbon Dioxide 20 mmol/L (22-29); Chloride 110 mmol/L (96-108); Creatinine Clr Calc Pharmacy 19.5; Estimated Glomerular Filt Rate 20; Glucose Random 162 mg/dL (60-115); Potassium 4.1 mmol/L (3.3-5.1); Sodium 141 mmol/L (135-145)
[2022-08-04 06:31] LABS: Hematocrit 21.5 % (42.0-52.0); Hemoglobin 7.1 g/dl (14.0-18.0); Mean Corpuscular Hemoglobin 30.9 pg (27.0-33.0); Mean Corpuscular Volume 93.5 fL (80.0-98.0); Mean Platelet Volume 11.2 fL (9.4-12.4); Platelet Count 134 X10*3/uL (160-400); Red Cell Distribution Width 14.8 % (11.0-16.0); White Blood Count 6.8 X10*3/uL (4.8-10.8)
[2022-08-04] MEDS: Lactated Ringers 1,000 ML 100 ML IVCONT ×2 (07:45→16:40)
[2022-08-04] MEDS: Empagliflozin 10 MG TABLET PO (07:51)
[2022-08-04] MEDS: Finasteride 5 MG TABLET PO (07:51)
[2022-08-04] MEDS: Metoprolol Tartrate 12.5 MG HALFTAB PO (07:51)
[2022-08-04] MEDS: Cholecalciferol (Vitamin D3) 25 MCG TABLET 50 MCG PO (07:51)
[2022-08-04 07:52] LABS: Glucose, Whole Blood 154 mg/dL (60-115)
[2022-08-04] MEDS: Sodium Bicarbonate 650 MG TABLET PO ×2 (07:52→21:12)
[2022-08-04] MEDS: Insulin Lispro 100 UNIT/ML 3 ML VIAL SUBCUT ×4 (08:06→21:14)
--- NOTE | 2022-08-04 09:09 | PM.PNNEP ---
Subjective Subjective Date of Service: 08/04/22 Interval history: seen and examined no complaints Physical Exam Vital Signs: Vital Signs: Last Vital Signs Temp 97.1 F 08/04/22 07:38 Pulse 84 08/04/22 07:38 Resp 16 08/04/22 07:38 BP 106/65 08/04/22 07:38 Pulse Ox 98 08/04/22 07:38 O2 Del Method Room Air 08/04/22 07:38 BMI result Body Mass Index 26.2 Const: General: alert and awake HEENT: Head: Yes normocephalic and Yes atraumatic Neck: Neck: Yes supple Resp: Effort & Inspection: normal respiratory effort Cardio: Heart sounds: S1 normal heart sound present and S2 normal heart sound present GI: Palpation (GI): Soft to palpation and nontender Extrem: Right upper extremity: no edema Objective Data Labs 08/04/22 05:35 08/04/22 05:35 Labs: Laboratory Results - last 24 hr 08/03/22 08/03/22 08/03/22 09:47 11:24 15:37 WBC 8.5 RBC 2.47 L Hgb 7.8 L 7.9 L Hct 23.2 L 23.4 L MCV 93.9 MCH 31.6 MCHC 33.6 RDW 14.5 Plt Count 129 L MPV 11.2 Absolute Nucleated RBC 0.000 Nucleated RBC % (auto) 0.0 Sodium Potassium Chloride Carbon Dioxide Anion Gap BUN Creatinine Estim Creat Clear Calc Estimated GFR POC Glucose 214 H Random Glucose Calcium Blood Type Antibody Screen Crossmatch 08/03/22 08/03/22 08/04/22 16:17 19:33 05:35 WBC 6.8 RBC 2.30 L Hgb 7.1 L Hct 21.5 L MCV 93.5 MCH 30.9 MCHC 33.0 RDW 14.8 Plt Count 134 L MPV 11.2 Absolute Nucleated RBC 0.000 Nucleated RBC % (auto) 0.0 Sodium Potassium Chloride Carbon Dioxide Anion Gap BUN Creatinine Estim Creat Clear Calc Estimated GFR POC Glucose 126 H 177 H Random Glucose Calcium Blood Type Antibody Screen Crossmatch 08/04/22 08/04/22 08/04/22 05:35 07:25 07:35 WBC RBC Hgb Hct MCV MCH MCHC RDW Plt Count MPV Absolute Nucleated RBC Nucleated RBC % (auto) Sodium 141 Potassium 4.1 Chloride 110 H Carbon Dioxide 20 L Anion Gap 15 BUN 58 H Creatinine 3.01 H Estim Creat Clear Calc 19.5 Estimated GFR 20 POC Glucose 154 H Random Glucose 162 H Calcium 8.0 L Blood Type O Positive Antibody Screen NEGATIVE Crossmatch See Detail Microbiology Microbiology Results: Microbiology 08/01/22 08:08 Blood - Venous Blood Culture - Preliminary No growth after 48 hours. 08/01/22 08:08 Blood - Venous Blood Culture - Preliminary No growth after 48 hours. 08/01/22 Unknown Urine Catheterized - Straight Catheter Urine Culture - Final No growth. Procedures Date of Service Date of Service: 08/04/22 Assessment & Plan Assessment and plan (1) DEON (acute kidney injury): Status: Resolved (2) CKD (chronic kidney disease) stage 3, GFR 30-59 ml/min: Status: Acute Plan Scr stable DEON due to: -obstructive uropathy -renal hypoperfusion renal US showed b/l hydronephrosis known CKD baseline Scr ~ 2 mg/dl REC Cao follow kidney function and elecvtrolytes Time Spent With Patient Time: Total time managing care of this patient today ____ minutes. Progress Note: Quality Stroke Does the patient have a stroke diagnosis?: No
[2022-08-04] MEDS: Acetaminophen 325 MG TABLET 650 MG PO (09:44)
[2022-08-04 11:32] LABS: Glucose, Whole Blood 194 mg/dL (60-115)
--- NOTE | 2022-08-04 11:47 | HO.PM.IMPN ---
Subjective Subjective Date of Service: 08/04/22 Interval History: seen and examined this morning follow up for hematuria persistent hematuria sitting up in bed, awake, alert. no overnight events denies dizziness, no abdominal pain able to state, name, year and that he is at [facility] due to blood in urine. Review of Systems Review of Systems: Yes all other systems are reviewed and are negative Constitutional Constitutional: Denies chills and Denies fever(s) ENT Ears, Nose, Mouth, and Throat: Denies dizziness Cardiovascular Cardiovascular: Denies chest pain, Denies palpitations and Denies dyspnea Respiratory Respiratory: Denies cough and Denies dyspnea Gastrointestinal Gastrointestinal: Denies abdominal pain, Denies nausea and Denies vomiting Neurologic Neurologic: Denies dizziness Endocrine Endocrine: Denies palpitations Physical Exam Vital Signs: Vital Signs: Last Vital Signs Temp 97.6 F 08/04/22 11:30 Pulse 86 08/04/22 11:30 Resp 16 08/04/22 11:30 BP 90/57 L 08/04/22 11:30 Pulse Ox 98 08/04/22 07:38 O2 Del Method Room Air 08/04/22 07:38 BMI result Body Mass Index 26.2 Const: Other: oriented but intermittently confused to situation General: comfortable, no acute distress, alert and awake Nutritional Appearance: average body habitus Orientation/consciousness: patient oriented x3 Resp: Effort & Inspection: normal respiratory effort and able to speak in complete sentences Auscultation: clear to auscultation bilaterally Cardio: Rate: regular rate GI: Inspection: No distended Palpation (GI): Soft to palpation and nontender : Other: loya in place - hematuria Neuro: General: patient oriented x3, moves all extremities and CN's II-XI intact bilaterally Extrem: General: Yes no pedal edema Objective Data Active Medications Acetaminophen (Acetaminophen 325 Mg Tablet) 650 mg PO Q6H PRN PRN Reason: Pain, Mild (Pain Scale 1-3) Last Admin: 08/04/22 09:44 Dose: 650 mg Documented By: GUILLERMO Atorvastatin Calcium (Atorvastatin Calcium 20 Mg Tablet) 20 mg PO BEDTIME [facility] Last Admin: 08/03/22 20:16 Dose: 20 mg Documented By: CAPRICE Docusate Sodium (Docusate Sodium 100 Mg Capsule) 100 mg PO DAILY PRN PRN Reason: Constipation Doxazosin Mesylate (Doxazosin Mesylate 2 Mg Tablet) 4 mg PO BEDTIME [facility]; Protocol Last Admin: 08/03/22 20:16 Dose: 4 mg Documented By: CAPRICE Empagliflozin (Empagliflozin 10 Mg Tablet) 10 mg PO DAILY [facility] Last Admin: 08/04/22 07:51 Dose: 10 mg Documented By: GUILLERMO Finasteride (Finasteride 5 Mg Tablet) 5 mg PO DAILY [facility] Last Admin: 08/04/22 07:51 Dose: 5 mg Documented By: GUILLERMO Glucose (Glucose Gel 15 Gm Gel..Gram.) 15 gm PO Q15M PRN; Protocol PRN Reason: per Hypoglycemia Standing Ord. Glucose (Glucose Gel 15 Gm Gel..Gram.) 15 gm PO Q15M PRN; Protocol PRN Reason: per Hypoglycemia Standing Ord. Dextrose (D10) 250 mls @ 750 mls/hr IV Q15M PRN; Protocol PRN Reason: per Hypoglycemia Standing Ord. Meropenem 500 mg/ Sodium (Chloride) 50 mls @ 100 mls/hr IV Q12H [facility] Last Infusion: 08/04/22 08:47 Dose: 0 mls/hr Documented By: GUILLERMO Dextrose (D10) 250 mls @ 750 mls/hr IV Q15M PRN; Protocol PRN Reason: per Hypoglycemia Standing Ord. Lactated Ringer's (Lr) 1,000 mls @ 100 mls/hr IVCONT .Q10H [facility] Last Admin: 08/04/22 07:45 Dose: 100 mls/hr Documented By: GUILLERMO Insulin Human Lispro (Insulin Lispro 100 Unit/Ml 3 Ml Vial) 0 unit SUBCUT QIDACHS [facility]; Protocol Last Admin: 08/04/22 08:06 Dose: 2 unit Documented By: GUILLERMO Metoprolol Tartrate (Metoprolol Tartrate 12.5 Mg Halftab) 12.5 mg PO BID [facility]; Protocol Last Admin: 08/04/22 07:51 Dose: 12.5 mg Documented By: GUILLERMO Ondansetron HCl (Ondansetron Hcl 4 Mg/2 Ml Vial) 4 mg IVPUSH Q8H PRN PRN Reason: Nausea and Vomiting Pantoprazole Sodium (Pantoprazole Sodium 40 Mg/10 Ml Vial) 40 mg IVPUSH BID@5873,6790 [facility] Last Admin: 08/04/22 05:43 Dose: 40 mg Documented By: CAPRICE Pharmacy Consult (Consult Rx Perform Med Rec) 1 each MISCELLANE ONCE PRN PRN Reason: Consult order Sodium Bicarbonate (Sodium Bicarbonate 650 Mg Tablet) 650 mg PO BID [facility] Last Admin: 08/04/22 07:52 Dose: 650 mg Documented By: GUILLERMO Sodium Chloride (0.9 % Sodium Chloride Flush 3 Ml Syringe) 3 ml IVFLUSH QSHIFT [facility] Last Admin: 08/04/22 09:04 Dose: Not Given Documented By: GUILLERMO Non-Admin Reason: IV Running Vitamin D (Cholecalciferol (Vitamin D3) 25 Mcg Tablet) 50 mcg PO DAILY [facility] Last Admin: 08/04/22 07:51 Dose: 50 mcg Documented By: GUILLERMO Labs 08/04/22 05:35 08/04/22 05:35 Labs: Laboratory Results - last 24 hr 08/03/22 08/03/22 08/04/22 16:17 19:33 05:35 MCV 93.5 MCH 30.9 MCHC 33.0 RDW 14.8 Plt Count 134 L MPV 11.2 Absolute Nucleated RBC 0.000 Nucleated RBC % (auto) 0.0 Anion Gap Estim Creat Clear Calc Estimated GFR POC Glucose 126 H 177 H Random Glucose Calcium Blood Type Antibody Screen Crossmatch 08/04/22 08/04/22 08/04/22 05:35 07:25 07:35 MCV MCH MCHC RDW Plt Count MPV Absolute Nucleated RBC Nucleated RBC % (auto) Anion Gap 15 Estim Creat Clear Calc 19.5 Estimated GFR 20 POC Glucose 154 H Random Glucose 162 H Calcium 8.0 L Blood Type O Positive Antibody Screen NEGATIVE Crossmatch See Detail 08/04/22 11:24 MCV MCH MCHC RDW Plt Count MPV Absolute Nucleated RBC Nucleated RBC % (auto) Anion Gap Estim Creat Clear Calc Estimated GFR POC Glucose 194 H Random Glucose Calcium Blood Type Antibody Screen Crossmatch Microbiology Microbiology Results: Microbiology 08/01/22 08:08 Blood Culture - Preliminary Blood - Venous No growth after 48 hours. 08/01/22 08:08 Blood Culture - Preliminary Blood - Venous No growth after 48 hours. 08/01/22 Unknown Urine Culture - Final Urine Catheterized - Straight Catheter No growth. Assessment and Plan (1) Heme positive stool: Status: Acute (2) Hematuria: Status: Acute (3) Bladder mass: Status: Acute Plan 81-year-old male with past medical history of acute osteomyelitis recently discharged from the hospital on 6 weeks of ertapenem, as well as peripheral vascular disease status post SFA atherectomy in this month, was to be on Plavix and aspirin for 6 months presents to the hospital with gross hematuria, as well as positive stool occult # acute gross hematuria - in the setting of history of bladder mass as noted in his EMR - [facility] that mass was malignant, no further details available - will need outpatient follow up - recently started on Plavix and aspirin for SFA atherectomy - Plavix, aspirin on hold - s/p 1U rbc 08/01, 2U rbc 08/02, 1U rbc 08/04 - seen by urology - US showing b/l hydro ?bladder thickening. rec CBI. will need outpatient cystoscopy. started on finasteride and doxazosin. - urine culture negative - follow CBC # acute GI bleed has positive stool occult. - started on pantoprazole IV b.i.d. - seen by GI - s/p EGD 08/02 with mild gastric erythema and non-bleeding AVMs, no bleeding seen in the UGI- anemia thought r/t to persistent hematuria # DEON on CKD3 # metabolic acidosis baseline of around 2, SCr still around 4 r/t obstructive uropathy/urinary retention - continue IV fluids - seen by nephrology - rec to start sodium bicarb - follow BMP # urinary retention - status post Loya catheter in place - seen by urology - rec outpatient cystoscopy, started on finasteride, doxazosin # acute on chronic anemia secondary to acute blood loss from hematuria as well as GI bleed - tranfuse prn - follow CBC #thrombocytopenia dilutional follow CBC # toxic metabolic encephalopathy related to DEON #hypotension asymptomatic likely r/t bleeding, no sepsis improved with blood transfusion metoprolol on hold # recent acute osteomyelitis - wound cultures showed MSSA plus strep very dense - was to be on ertapenem x6 weeks since 07/16 (end date 08/30) - will switch to meropenem inpatient - infectious disease consulted - wound care - followed by vascular outpatient, recent procedure done as above # diabetes - continue sliding scale insulin, hold oral antihyperglycemics DVT prophylaxis: SCDs attending - dr. barcenas given patient's need for further evaluation of hematuria as well as GI bleed patient required ongoing hospital stay for further management and monitoring Time Spent With Patient Time: Total time managing care of this patient today ____ minutes. Quality Stroke Does the patient have a stroke diagnosis?: No VTE Prior VTE?: No VTE Risk Level:: Medical - moderate - high VTE Device Contraindication: N/A - Device Ordered VTE Drug Contraindication: Treatment Not Indicated
--- NOTE | 2022-08-04 14:24 | PC.NURSE ---
Pt transfused with 1 unit of packed red blood cells as per order for a H&H of 7.1/21.5 . Pt tolerated well
[2022-08-04 16:15] LABS: Glucose, Whole Blood 158 mg/dL (60-115)
[2022-08-04 16:32] LABS: Hematocrit 22.7 % (42.0-52.0); Hemoglobin 7.6 g/dl (14.0-18.0)
[2022-08-04] MEDS: Doxazosin Mesylate 2 MG TABLET 4 MG PO (21:12)
[2022-08-04] MEDS: 0.9 % Sodium Chloride Flush 3 ML SYRINGE IVFLUSH (21:12)
[2022-08-04] MEDS: Atorvastatin Calcium 20 MG TABLET PO (21:12)
[2022-08-04] MEDS: Nystatin Powder 15 GM BOTTLE 1 APPL TOPICAL (21:29)
[2022-08-04 21:42] LABS: Glucose, Whole Blood 179 mg/dL (60-115)
[2022-08-05] MEDS: Lactated Ringers 1,000 ML 100 ML IVCONT ×2 (03:11→14:29)
[2022-08-05 03:19] VITALS: BP 131/69; PULSE 109; RESP 16; TEMP 36.1; O2SAT 96
[2022-08-05] MEDS: Pantoprazole Sodium 40 MG/10 ML VIAL IVPUSH ×2 (05:53→16:55)
[2022-08-05 06:23] LABS: Anion Gap 13 (12-20); Blood Urea Nitrogen 53 mg/dL (9-16); Carbon Dioxide 22 mmol/L (22-29); Chloride 112 mmol/L (96-108); Creatinine Clr Calc Pharmacy 18.5; Estimated Glomerular Filt Rate 19; Glucose Random 163 mg/dL (60-115); Potassium 3.9 mmol/L (3.3-5.1); Sodium 143 mmol/L (135-145)
[2022-08-05 06:37] LABS: Hematocrit 21.9 % (42.0-52.0); Hemoglobin 7.4 g/dl (14.0-18.0); Mean Corpuscular HGB Conc 33.8 g/dl (31.0-36.0); Mean Corpuscular Volume 94.8 fL (80.0-98.0); Mean Platelet Volume 10.8 fL (9.4-12.4); Platelet Count 152 X10*3/uL (160-400); Red Blood Count 2.31 X10*6/uL (4.60-5.80); Red Cell Distribution Width 15.3 % (11.0-16.0)
--- NOTE | 2022-08-05 06:50 | PM.PNNEP ---
Subjective Subjective Date of Service: 08/05/22 Interval history: seen and examined this morning persistent hematuria Physical Exam Vital Signs: Vital Signs: Last Vital Signs Temp 97.0 F 08/05/22 03:19 Pulse 109 H 08/05/22 03:19 Resp 16 08/05/22 03:19 BP 131/69 08/05/22 03:19 Pulse Ox 96 08/05/22 03:19 O2 Del Method Room Air 08/05/22 03:19 BMI result Body Mass Index 26.2 Const: General: alert and awake HEENT: Head: Yes normocephalic and Yes atraumatic Neck: Neck: Yes supple Resp: Effort & Inspection: normal respiratory effort Cardio: Heart sounds: S1 normal heart sound present and S2 normal heart sound present GI: Palpation (GI): Soft to palpation and nontender Extrem: Right upper extremity: no edema Objective Data Labs 08/05/22 05:22 08/05/22 05:22 Labs: Laboratory Results - last 24 hr 08/04/22 08/04/22 08/04/22 07:25 07:35 11:24 WBC RBC Hgb Hct MCV MCH MCHC RDW Plt Count MPV Absolute Nucleated RBC Nucleated RBC % (auto) Sodium Potassium Chloride Carbon Dioxide Anion Gap BUN Creatinine Estim Creat Clear Calc Estimated GFR POC Glucose 154 H 194 H Random Glucose Calcium Blood Type O Positive Antibody Screen NEGATIVE Crossmatch See Detail 08/04/22 08/04/22 08/04/22 16:04 16:10 20:39 WBC RBC Hgb 7.6 L Hct 22.7 L MCV MCH MCHC RDW Plt Count MPV Absolute Nucleated RBC Nucleated RBC % (auto) Sodium Potassium Chloride Carbon Dioxide Anion Gap BUN Creatinine Estim Creat Clear Calc Estimated GFR POC Glucose 158 H 179 H Random Glucose Calcium Blood Type Antibody Screen Crossmatch 08/05/22 08/05/22 05:22 05:22 WBC 6.0 RBC 2.31 L Hgb 7.4 L Hct 21.9 L MCV 94.8 MCH 32.0 MCHC 33.8 RDW 15.3 Plt Count 152 L MPV 10.8 Absolute Nucleated RBC 0.000 Nucleated RBC % (auto) 0.0 Sodium 143 Potassium 3.9 Chloride 112 H Carbon Dioxide 22 Anion Gap 13 BUN 53 H Creatinine 3.18 H Estim Creat Clear Calc 18.5 Estimated GFR 19 POC Glucose Random Glucose 163 H Calcium 8.0 L Blood Type Antibody Screen Crossmatch Microbiology Microbiology Results: Microbiology 08/01/22 08:08 Blood - Venous Blood Culture - Preliminary No growth after 48 hours. 08/01/22 08:08 Blood - Venous Blood Culture - Preliminary No growth after 48 hours. 08/01/22 Unknown Urine Catheterized - Straight Catheter Urine Culture - Final No growth. Procedures Date of Service Date of Service: 08/05/22 Assessment & Plan Assessment and plan (1) DEON (acute kidney injury): Status: Resolved (2) CKD (chronic kidney disease) stage 3, GFR 30-59 ml/min: Status: Acute Plan Scr stable but not at baseline Cao leaking DEON due to: -obstructive uropathy -renal hypoperfusion renal US showed b/l hydronephrosis known CKD baseline Scr ~ 2 mg/dl REC c/w Cao urology f/u follow kidney function and elecvtrolytes Time Spent With Patient Time: Total time managing care of this patient today ____ minutes. Progress Note: Quality Stroke Does the patient have a stroke diagnosis?: No
[2022-08-05 08:00] VITALS: BP 125/68; PULSE 70; RESP 18; TEMP 35.8; O2SAT 97
[2022-08-05 08:07] LABS: Glucose, Whole Blood 158 mg/dL (60-115)
[2022-08-05] MEDS: Insulin Lispro 100 UNIT/ML 3 ML VIAL SUBCUT ×4 (08:24→20:58)
[2022-08-05] MEDS: Docusate Sodium 100 MG CAPSULE PO (08:25)
[2022-08-05] MEDS: 0.9 % Sodium Chloride Flush 3 ML SYRINGE IVFLUSH ×2 (08:25→19:59)
[2022-08-05] MEDS: Empagliflozin 10 MG TABLET PO (08:25)
[2022-08-05] MEDS: Finasteride 5 MG TABLET PO (08:25)
[2022-08-05] MEDS: Sodium Bicarbonate 650 MG TABLET PO ×2 (08:25→19:58)
[2022-08-05] MEDS: Cholecalciferol (Vitamin D3) 25 MCG TABLET 50 MCG PO (08:25)
[2022-08-05] MEDS: Nystatin Powder 15 GM BOTTLE 1 APPL TOPICAL ×2 (08:26→21:34)
--- NOTE | 2022-08-05 10:30 | HO.PM.IMPN ---
Subjective Subjective Date of Service: 08/05/22 Interval History: seen and examined this morning for deon/hematuria continues with CBI, output seems more pink today seems to be leaking around catheter patient denies abdominal pain, nausea or vomiting Review of Systems Review of Systems: Yes all other systems are reviewed and are negative Constitutional Constitutional: Denies chills and Denies fever(s) Cardiovascular Cardiovascular: Denies chest pain, Denies palpitations and Denies dyspnea Respiratory Respiratory: Denies cough and Denies dyspnea Gastrointestinal Gastrointestinal: Denies abdominal pain, Denies nausea and Denies vomiting Endocrine Endocrine: Denies palpitations Physical Exam Vital Signs: Vital Signs: Last Vital Signs Temp 96.5 F L 08/05/22 08:00 Pulse 70 08/05/22 08:00 Resp 18 08/05/22 08:00 BP 125/68 08/05/22 08:00 Pulse Ox 97 08/05/22 08:00 O2 Del Method Room Air 08/05/22 08:00 BMI result Body Mass Index 26.2 Const: Other: oriented but intermittently confused to situation General: comfortable, no acute distress, alert and awake Nutritional Appearance: average body habitus Orientation/consciousness: patient oriented x3 Resp: Effort & Inspection: normal respiratory effort and able to speak in complete sentences Auscultation: clear to auscultation bilaterally Cardio: Rate: regular rate GI: Inspection: No distended Palpation (GI): Soft to palpation and nontender : Other: loya in place - hematuria Skin: Other: scrotum, groin skin macerated Neuro: General: patient oriented x3, moves all extremities and CN's II-XI intact bilaterally Extrem: Other: right foot c/d/i dressing; no staining General: Yes no pedal edema Objective Data Active Medications Acetaminophen (Acetaminophen 325 Mg Tablet) 650 mg PO Q6H PRN PRN Reason: Pain, Mild (Pain Scale 1-3) Last Admin: 08/04/22 09:44 Dose: 650 mg Documented By: GUILLERMO Atorvastatin Calcium (Atorvastatin Calcium 20 Mg Tablet) 20 mg PO BEDTIME [facility] Last Admin: 08/04/22 21:12 Dose: 20 mg Documented By: DOTTIE Docusate Sodium (Docusate Sodium 100 Mg Capsule) 100 mg PO DAILY [facility] Last Admin: 08/05/22 08:25 Dose: 100 mg Documented By: GUILLERMO Doxazosin Mesylate (Doxazosin Mesylate 2 Mg Tablet) 4 mg PO BEDTIME [facility]; Protocol Last Admin: 08/04/22 21:12 Dose: 4 mg Documented By: DOTTIE Empagliflozin (Empagliflozin 10 Mg Tablet) 10 mg PO DAILY [facility] Last Admin: 08/05/22 08:25 Dose: 10 mg Documented By: GUILLERMO Finasteride (Finasteride 5 Mg Tablet) 5 mg PO DAILY [facility] Last Admin: 08/05/22 08:25 Dose: 5 mg Documented By: GUILLERMO Glucose (Glucose Gel 15 Gm Gel..Gram.) 15 gm PO Q15M PRN; Protocol PRN Reason: per Hypoglycemia Standing Ord. Glucose (Glucose Gel 15 Gm Gel..Gram.) 15 gm PO Q15M PRN; Protocol PRN Reason: per Hypoglycemia Standing Ord. Dextrose (D10) 250 mls @ 750 mls/hr IV Q15M PRN; Protocol PRN Reason: per Hypoglycemia Standing Ord. Meropenem 500 mg/ Sodium (Chloride) 50 mls @ 100 mls/hr IV Q12H [facility] Last Infusion: 08/05/22 09:56 Dose: 0 mls/hr Documented By: GUILLERMO Dextrose (D10) 250 mls @ 750 mls/hr IV Q15M PRN; Protocol PRN Reason: per Hypoglycemia Standing Ord. Lactated Ringer's (Lr) 1,000 mls @ 100 mls/hr IVCONT .Q10H [facility] Last Admin: 08/05/22 03:11 Dose: 100 mls/hr Documented By: DOTTIE Insulin Human Lispro (Insulin Lispro 100 Unit/Ml 3 Ml Vial) 0 unit SUBCUT QIDACHS [facility]; Protocol Last Admin: 08/05/22 08:24 Dose: 2 unit Documented By: GUILLERMO Metoprolol Tartrate (Metoprolol Tartrate 12.5 Mg Halftab) 12.5 mg PO BID [facility]; Protocol Last Admin: 08/04/22 07:51 Dose: 12.5 mg Documented By: GUILLERMO Nystatin (Nystatin Powder 15 Gm Bottle) 1 appl TOPICAL BID [facility]; Protocol Last Admin: 08/05/22 08:26 Dose: 1 appl Documented By: GUILLERMO Ondansetron HCl (Ondansetron Hcl 4 Mg/2 Ml Vial) 4 mg IVPUSH Q8H PRN PRN Reason: Nausea and Vomiting Pantoprazole Sodium (Pantoprazole Sodium 40 Mg/10 Ml Vial) 40 mg IVPUSH BID@0630,1630 [facility] Last Admin: 08/05/22 05:53 Dose: 40 mg Documented By: DOTTIE Pharmacy Consult (Consult Rx Perform Med Rec) 1 each MISCELLANE ONCE PRN PRN Reason: Consult order Polyethylene Glycol (Polyethylene Glycol 3350 17 Gm Powd.Pack) 17 gm PO DAILY PRN PRN Reason: Constipation Sodium Bicarbonate (Sodium Bicarbonate 650 Mg Tablet) 650 mg PO BID [facility] Last Admin: 08/05/22 08:25 Dose: 650 mg Documented By: GUILLERMO Sodium Chloride (0.9 % Sodium Chloride Flush 3 Ml Syringe) 3 ml IVFLUSH QSHIFT [facility] Last Admin: 08/05/22 08:25 Dose: 3 ml Documented By: GUILLERMO Sodium Chloride (Sodium Chloride 0.65 % Nasal 44 Ml Sprbtl) 1 spray NOSTRIL-B Q1H PRN PRN Reason: Dry Nasal Passages Vitamin D (Cholecalciferol (Vitamin D3) 25 Mcg Tablet) 50 mcg PO DAILY [facility] Last Admin: 08/05/22 08:25 Dose: 50 mcg Documented By: GUILLERMO Labs 08/05/22 05:22 08/05/22 05:22 Labs: Laboratory Results - last 24 hr 08/04/22 08/04/22 08/04/22 07:25 11:24 16:10 MCV MCH MCHC RDW Plt Count MPV Absolute Nucleated RBC Nucleated RBC % (auto) Anion Gap Estim Creat Clear Calc Estimated GFR POC Glucose 194 H 158 H Random Glucose Calcium Blood Type O Positive Antibody Screen NEGATIVE Crossmatch See Detail 08/04/22 08/05/22 08/05/22 20:39 05:22 05:22 MCV 94.8 MCH 32.0 MCHC 33.8 RDW 15.3 Plt Count 152 L MPV 10.8 Absolute Nucleated RBC 0.000 Nucleated RBC % (auto) 0.0 Anion Gap 13 Estim Creat Clear Calc 18.5 Estimated GFR 19 POC Glucose 179 H Random Glucose 163 H Calcium 8.0 L Blood Type Antibody Screen Crossmatch 05/21/23 07:57 MCV MCH MCHC RDW Plt Count MPV Absolute Nucleated RBC Nucleated RBC % (auto) Anion Gap Estim Creat Clear Calc Estimated GFR POC Glucose 158 H Random Glucose Calcium Blood Type Antibody Screen Crossmatch Assessment and Plan (1) Loya catheter problem: Status: Acute (2) Hematuria: Status: Acute (3) Bladder mass: Status: Acute (4) Anemia: Status: Acute Plan 81-year-old male with past medical history of acute osteomyelitis recently discharged from the hospital on 6 weeks of ertapenem, as well as peripheral vascular disease status post SFA atherectomy earlier this month, was to be on Plavix and aspirin for 6 months presents to the hospital with gross hematuria, as well as positive stool occult acute gross hematuria - in the setting of history of bladder mass as noted in his EMR - per primary urologist at [facility] called to update her that mass was malignant, no further details available - will need outpatient follow up - recently started on Plavix and aspirin for SFA atherectomy - Plavix, aspirin on hold - s/p 1U rbc 08/01, 2U rbc 08/02, 1U rbc 08/04 - seen by urology - US showing b/l hydro ?bladder thickening. rec CBI. will need outpatient cystoscopy. started on finasteride and doxazosin. - urine culture negative - follow CBC acute GI bleed has positive stool occult. - started on pantoprazole IV b.i.d. - seen by GI - s/p EGD 08/02 with mild gastric erythema and non-bleeding AVMs, no bleeding seen in the UGI- anemia thought r/t to persistent hematuria DEON on CKD3 metabolic acidosis baseline of around 2, SCr still around 3 r/t obstructive uropathy/urinary retention - continue IV fluids - seen by nephrology - rec to start sodium bicarb - follow BMP urinary retention - status post Loya catheter in place - seen by urology - rec outpatient cystoscopy, started on finasteride, doxazosin acute on chronic anemia secondary to acute blood loss from hematuria as well as GI bleed - tranfuse prn - follow CBC thrombocytopenia dilutional follow CBC toxic metabolic encephalopathy related to DEON hypotension asymptomatic likely r/t bleeding, no sepsis improved with blood transfusion metoprolol on hold recent acute osteomyelitis - wound cultures showed MSSA plus strep very dense - was to be on ertapenem x6 weeks since 07/16 (end date 6/15) - will switch to meropenem inpatient - seenb by infectious disease, no change in abx at this time - wound care - followed by vascular outpatient, recent procedure done as above diabetes - continue sliding scale insulin, hold oral antihyperglycemics DVT prophylaxis: SCDs attending - dr. Nation Patient requires ongoing inpatient hospitalization for management of persistent hematuria, blood pressure monitoring Time Spent With Patient Time: Total time managing care of this patient today ____ minutes. Quality Stroke Does the patient have a stroke diagnosis?: No VTE Prior VTE?: No VTE Risk Level:: Medical - moderate - high VTE Device Contraindication: N/A - Device Ordered VTE Drug Contraindication: Treatment Not Indicated
[2022-08-05 11:15] LABS: Glucose, Whole Blood 194 mg/dL (60-115)
[2022-08-05] MEDS: Lidocaine HCl 2 % Urojet 10 ML JEL.PF.APP TOPICAL (12:44)
[2022-08-05 15:09] VITALS: BP 112/55; PULSE 96; RESP 18; TEMP 36.1; O2SAT 96
--- NOTE | 2022-08-05 15:16 | PC.NURSE ---
Cao cath changed out at the recommendation of Dr Youngblood , CBI was infusing and was leaking around the catheter . pt did require hand irrigation for clots . pt tolerated well
[2022-08-05 16:32] LABS: Glucose, Whole Blood 203 mg/dL (60-115)
[2022-08-05] MEDS: Doxazosin Mesylate 2 MG TABLET 4 MG PO (19:58)
[2022-08-05] MEDS: Atorvastatin Calcium 20 MG TABLET PO (19:58)
[2022-08-05 20:00] VITALS: BP 119/60; PULSE 98; RESP 19; TEMP 36.6; O2SAT 97
[2022-08-05 20:30] LABS: Glucose, Whole Blood 232 mg/dL (60-115)
[2022-08-06] VITALS (9 sets, daily range): BP systolic 121–146; BP diastolic 50–73; PULSE 99–112; RESP 12–20; TEMP 36–36.6; O2SAT 95–99
[2022-08-06] MEDS: Lactated Ringers 1,000 ML 100 ML IVCONT (00:30)
[2022-08-06 05:54] LABS: Mean Corpuscular HGB Conc 32.8 g/dl (31.0-36.0); Mean Corpuscular Hemoglobin 31.5 pg (27.0-33.0); Mean Platelet Volume 11.1 fL (9.4-12.4); Platelet Count 134 X10*3/uL (160-400); Red Cell Distribution Width 15.6 % (11.0-16.0); White Blood Count 5.7 X10*3/uL (4.8-10.8)
[2022-08-06 05:55] LABS: Anion Gap 13 (12-20); Blood Urea Nitrogen 52 mg/dL (9-16); Calcium 7.9 mg/dL (8.4-10.2); Carbon Dioxide 20 mmol/L (22-29); Chloride 114 mmol/L (96-108); Creatinine Clr Calc Pharmacy 17.1; Estimated Glomerular Filt Rate 17; Glucose Random 158 mg/dL (60-115); Sodium 143 mmol/L (135-145)
[2022-08-06] MEDS: Pantoprazole Sodium 40 MG/10 ML VIAL IVPUSH ×2 (05:56→16:54)
[2022-08-06 06:06] LABS: Hematocrit 19.2 % (42.0-52.0); Hemoglobin 6.3 g/dl (14.0-18.0)
--- NOTE | 2022-08-06 06:42 | PC.NURSE ---
RECEIVED CALL FROM LAB WITH CRITICAL VALUE OF HH THIS AM OF 6.3 AND 19.2. HOPSITALIST ON DUTY, DR. MADRID WAS NOTIFIED AND REPLIED THANK YOU. CURRENTLY AWAITING NEW ORDERS. PATIENT IS ALERT, ORIENTED BUT LITTLE FORGETFUL AT TIMES. VSS, NO STATUS CHANGES, DENIES BLADDER PAIN, PRESSURE, DISCOMFORT, OR BLADDER SPASMS. CBI IS DRAINING PUNCH COLORED URINE AND OUTPUT OF TRUE URINE THIS AM =400ML. CBI IRRIGATED TIMES ONE WITH FEW SMALL SHREDS RETURNED AND PT TOLERATED WELL. COLOR OF CBI ALSO GIVEN TO MD. WILL REPORT OFF TO DAY RN.
[2022-08-06 07:39] LABS: Glucose, Whole Blood 158 mg/dL (60-115)
[2022-08-06] MEDS: 0.9 % Sodium Chloride Flush 3 ML SYRINGE IVFLUSH ×2 (08:12→16:54)
[2022-08-06] MEDS: Cholecalciferol (Vitamin D3) 25 MCG TABLET 50 MCG PO (08:12)
[2022-08-06] MEDS: Sodium Bicarbonate 650 MG TABLET PO ×2 (08:12→20:36)
[2022-08-06] MEDS: Empagliflozin 10 MG TABLET PO (08:12)
[2022-08-06] MEDS: Docusate Sodium 100 MG CAPSULE PO (08:13)
[2022-08-06] MEDS: Insulin Lispro 100 UNIT/ML 3 ML VIAL SUBCUT ×4 (08:14→22:22)
[2022-08-06] MEDS: Nystatin Powder 15 GM BOTTLE 1 APPL TOPICAL ×2 (08:14→20:37)
[2022-08-06] MEDS: Finasteride 5 MG TABLET PO (08:14)
--- NOTE | 2022-08-06 08:19 | PM.UROPN ---
Subjective Subjective Date of Service: 08/06/22 Interval history: 81 year old male with multiple medical conditions including vascular disease on plavix and poorly controlled diabetes. He was admitted on 07/11/22 due to infected foot ulcer. He was seen in consultation by urology for gross hematuria and placed on continuous bladder irrigation. I was called to re-evaluate the patient due to persistent gross hematuria. The patient states he has a urologist and had what he describes as a biopsy and he is awaiting results and further evaluation. He had a renal ultrasound during this admission which notes hydronephrosis and possible bladder mass. The patient has required blood transfusions. Have discussed further evaluation with cystoscopy. Also further evaluation with CT abd/pelvis wo IV contrast due to renal insufficiency. Physical Exam Vital Signs: Vital Signs: Last Vital Signs Temp 97.1 F 08/06/22 07:31 Pulse 99 08/06/22 07:31 Resp 16 08/06/22 07:31 BP 130/55 L 08/06/22 07:31 Pulse Ox 95 08/06/22 07:31 O2 Del Method Room Air 08/06/22 07:31 BMI result Body Mass Index 26.2 Const: General: no acute distress and well developed Orientation/consciousness: patient oriented x3 HEENT: Head: Yes normocephalic and Yes atraumatic Eyes: Conjunctivae: conjunctivae normal Neck: Neck: Yes normal visual inspection Chest: Chest palpation & inspection: normal inspection of the chest Resp: Effort & Inspection: normal respiratory effort Cardio: Rate: regular rate GI: Inspection: Yes normal to inspection Palpation (GI): Soft to palpation : Other: Cao in place hematuria with CBI Neuro: General: patient oriented x3 Psych: Appearance: grossly normal Affect: normal affect Urology Results Labs 08/06/22 05:21 08/06/22 05:21 Labs: Laboratory Results - last 24 hr 08/04/22 08/05/22 08/05/22 07:25 11:07 16:25 WBC RBC Hgb Hct MCV MCH MCHC RDW Plt Count MPV Absolute Nucleated RBC Nucleated RBC % (auto) Sodium Potassium Chloride Carbon Dioxide Anion Gap BUN Creatinine Estim Creat Clear Calc Estimated GFR POC Glucose 194 H 203 H Random Glucose Calcium Blood Type O Positive Antibody Screen NEGATIVE Crossmatch See Detail 08/05/22 08/06/22 08/06/22 20:26 05:21 05:21 WBC 5.7 RBC 2.00 L Hgb 6.3 L* Hct 19.2 L* MCV 96.0 MCH 31.5 MCHC 32.8 RDW 15.6 Plt Count 134 L MPV 11.1 Absolute Nucleated RBC 0.000 Nucleated RBC % (auto) 0.0 Sodium 143 Potassium 4.0 Chloride 114 H Carbon Dioxide 20 L Anion Gap 13 BUN 52 H Creatinine 3.44 H Estim Creat Clear Calc 17.1 Estimated GFR 17 POC Glucose 232 H Random Glucose 158 H Calcium 7.9 L Blood Type Antibody Screen Crossmatch 08/06/22 07:34 WBC RBC Hgb Hct MCV MCH MCHC RDW Plt Count MPV Absolute Nucleated RBC Nucleated RBC % (auto) Sodium Potassium Chloride Carbon Dioxide Anion Gap BUN Creatinine Estim Creat Clear Calc Estimated GFR POC Glucose 158 H Random Glucose Calcium Blood Type Antibody Screen Crossmatch Progress Note: A&P Assessment and plan (1) Hydronephrosis: Status: Acute (2) Gross hematuria: Status: Acute (3) Acute kidney injury superimposed on CKD: Status: Acute (4) BPH loc w urin obs/LUTS: Status: Acute Plan Will schedule for cystoscopy CT abdomen pelvis without contrast NPO after midnight Time Spent With Patient Time: Total time managing care of this patient today ____ minutes. Progress Note: Quality Stroke Does the patient have a stroke diagnosis?: No
--- NOTE | 2022-08-06 10:03 | PM.PNNEP ---
Subjective Subjective Date of Service: 08/06/22 Interval history: seen and examined no complaints Physical Exam Vital Signs: Vital Signs: Last Vital Signs Temp 97.1 F 08/06/22 07:31 Pulse 99 08/06/22 07:31 Resp 16 08/06/22 07:31 BP 130/55 L 08/06/22 07:31 Pulse Ox 95 08/06/22 07:31 O2 Del Method Room Air 08/06/22 07:31 BMI result Body Mass Index 26.2 Const: General: alert and awake HEENT: Head: Yes normocephalic and Yes atraumatic Neck: Neck: Yes supple Resp: Effort & Inspection: normal respiratory effort Cardio: Heart sounds: S1 normal heart sound present and S2 normal heart sound present GI: Palpation (GI): Soft to palpation and nontender Extrem: Right upper extremity: no edema Objective Data Labs 08/06/22 05:21 08/06/22 05:21 Labs: Laboratory Results - last 24 hr 08/04/22 08/05/22 08/05/22 07:25 11:07 16:25 WBC RBC Hgb Hct MCV MCH MCHC RDW Plt Count MPV Absolute Nucleated RBC Nucleated RBC % (auto) Sodium Potassium Chloride Carbon Dioxide Anion Gap BUN Creatinine Estim Creat Clear Calc Estimated GFR POC Glucose 194 H 203 H Random Glucose Calcium Blood Type O Positive Antibody Screen NEGATIVE Crossmatch See Detail 08/05/22 08/06/22 08/06/22 20:26 05:21 05:21 WBC 5.7 RBC 2.00 L Hgb 6.3 L* Hct 19.2 L* MCV 96.0 MCH 31.5 MCHC 32.8 RDW 15.6 Plt Count 134 L MPV 11.1 Absolute Nucleated RBC 0.000 Nucleated RBC % (auto) 0.0 Sodium 143 Potassium 4.0 Chloride 114 H Carbon Dioxide 20 L Anion Gap 13 BUN 52 H Creatinine 3.44 H Estim Creat Clear Calc 17.1 Estimated GFR 17 POC Glucose 232 H Random Glucose 158 H Calcium 7.9 L Blood Type Antibody Screen Crossmatch 08/06/22 07:34 WBC RBC Hgb Hct MCV MCH MCHC RDW Plt Count MPV Absolute Nucleated RBC Nucleated RBC % (auto) Sodium Potassium Chloride Carbon Dioxide Anion Gap BUN Creatinine Estim Creat Clear Calc Estimated GFR POC Glucose 158 H Random Glucose Calcium Blood Type Antibody Screen Crossmatch Microbiology Microbiology Results: Microbiology 08/01/22 08:08 Blood - Venous Blood Culture - Preliminary No growth after 48 hours. 08/01/22 08:08 Blood - Venous Blood Culture - Preliminary No growth after 48 hours. 08/01/22 Unknown Urine Catheterized - Straight Catheter Urine Culture - Final No growth. Procedures Date of Service Date of Service: 08/06/22 Assessment & Plan Assessment and plan (1) DEON (acute kidney injury): Status: Resolved (2) CKD (chronic kidney disease) stage 3, GFR 30-59 ml/min: Status: Acute Plan Scr up DEON due to: -obstructive uropathy -renal hypoperfusion renal US showed b/l hydronephrosis known CKD baseline Scr ~ 2 mg/dl REC c/w Cao CBI follow kidney function and elecvtrolytes Time Spent With Patient Time: Total time managing care of this patient today ____ minutes. Progress Note: Quality Stroke Does the patient have a stroke diagnosis?: No
--- NOTE | 2022-08-06 11:14 | HO.PM.IMPN ---
Subjective Subjective Date of Service: 08/06/22 Interval History: seen and examined this morning for deon/hematuria continues with CBI seems to be leaking around catheter patient denies abdominal pain, nausea or vomiting Review of Systems Review of Systems: Yes all other systems are reviewed and are negative Constitutional Constitutional: Denies chills and Denies fever(s) Cardiovascular Cardiovascular: Denies chest pain, Denies palpitations and Denies dyspnea Respiratory Respiratory: Denies cough and Denies dyspnea Gastrointestinal Gastrointestinal: Denies abdominal pain, Denies nausea and Denies vomiting Endocrine Endocrine: Denies palpitations Physical Exam Vital Signs: Vital Signs: Last Vital Signs Temp 97.1 F 08/06/22 11:06 Pulse 99 08/06/22 11:06 Resp 17 08/06/22 11:06 BP 130/55 L 08/06/22 11:06 Pulse Ox 95 08/06/22 07:31 O2 Del Method Room Air 08/06/22 07:31 BMI result Body Mass Index 26.2 Appearing in no acute distress lung sounds are clear to auscultation heart regular rate rhythm, clear S1, S2 positive bowel sounds, abdomen is soft, nontender neuro patient is alert x3, no focal deficits Objective Data Active Medications Acetaminophen (Acetaminophen 325 Mg Tablet) 650 mg PO Q6H PRN PRN Reason: Pain, Mild (Pain Scale 1-3) Last Admin: 08/04/22 09:44 Dose: 650 mg Documented By: GUILLERMO Atorvastatin Calcium (Atorvastatin Calcium 20 Mg Tablet) 20 mg PO BEDTIME [facility] Last Admin: 08/05/22 19:58 Dose: 20 mg Documented By: ZAHIDA Docusate Sodium (Docusate Sodium 100 Mg Capsule) 100 mg PO DAILY [facility] Last Admin: 08/06/22 08:13 Dose: 100 mg Documented By: AKBAR Doxazosin Mesylate (Doxazosin Mesylate 2 Mg Tablet) 4 mg PO BEDTIME [facility]; Protocol Last Admin: 08/05/22 19:58 Dose: 4 mg Documented By: ZAHIDA Empagliflozin (Empagliflozin 10 Mg Tablet) 10 mg PO DAILY [facility] Last Admin: 08/06/22 08:12 Dose: 10 mg Documented By: AKBAR Finasteride (Finasteride 5 Mg Tablet) 5 mg PO DAILY [facility] Last Admin: 08/06/22 08:14 Dose: 5 mg Documented By: AKBAR Glucose (Glucose Gel 15 Gm Gel..Gram.) 15 gm PO Q15M PRN; Protocol PRN Reason: per Hypoglycemia Standing Ord. Glucose (Glucose Gel 15 Gm Gel..Gram.) 15 gm PO Q15M PRN; Protocol PRN Reason: per Hypoglycemia Standing Ord. Dextrose (D10) 250 mls @ 750 mls/hr IV Q15M PRN; Protocol PRN Reason: per Hypoglycemia Standing Ord. Meropenem 500 mg/ Sodium (Chloride) 50 mls @ 100 mls/hr IV Q12H [facility] Last Infusion: 08/06/22 08:57 Dose: 0 mls/hr Documented By: AKBAR Dextrose (D10) 250 mls @ 750 mls/hr IV Q15M PRN; Protocol PRN Reason: per Hypoglycemia Standing Ord. Insulin Human Lispro (Insulin Lispro 100 Unit/Ml 3 Ml Vial) 0 unit SUBCUT QIDACHS [facility]; Protocol Last Admin: 08/06/22 08:14 Dose: 2 unit Documented By: AKBAR Metoprolol Tartrate (Metoprolol Tartrate 12.5 Mg Halftab) 12.5 mg PO BID [facility]; Protocol Last Admin: 08/04/22 07:51 Dose: 12.5 mg Documented By: GUILLERMO Nystatin (Nystatin Powder 15 Gm Bottle) 1 appl TOPICAL BID [facility]; Protocol Last Admin: 08/06/22 08:14 Dose: 1 appl Documented By: AKBAR Ondansetron HCl (Ondansetron Hcl 4 Mg/2 Ml Vial) 4 mg IVPUSH Q8H PRN PRN Reason: Nausea and Vomiting Pantoprazole Sodium (Pantoprazole Sodium 40 Mg/10 Ml Vial) 40 mg IVPUSH BID@0630,1630 [facility] Last Admin: 08/06/22 05:56 Dose: 40 mg Documented By: ELIER Pharmacy Consult (Consult Rx Perform Med Rec) 1 each MISCELLANE ONCE PRN PRN Reason: Consult order Polyethylene Glycol (Polyethylene Glycol 3350 17 Gm Powd.Pack) 17 gm PO DAILY PRN PRN Reason: Constipation Sodium Bicarbonate (Sodium Bicarbonate 650 Mg Tablet) 650 mg PO BID [facility] Last Admin: 08/06/22 08:12 Dose: 650 mg Documented By: AKBAR Sodium Chloride (0.9 % Sodium Chloride Flush 3 Ml Syringe) 3 ml IVFLUSH QSHIFT [facility] Last Admin: 08/06/22 08:12 Dose: 3 ml Documented By: AKBAR Sodium Chloride (Sodium Chloride 0.65 % Nasal 44 Ml Sprbtl) 1 spray NOSTRIL-B Q1H PRN PRN Reason: Dry Nasal Passages Vitamin D (Cholecalciferol (Vitamin D3) 25 Mcg Tablet) 50 mcg PO DAILY [facility] Last Admin: 08/06/22 08:12 Dose: 50 mcg Documented By: AKBAR Labs 08/06/22 05:21 08/06/22 05:21 Labs: Laboratory Results - last 24 hr 08/04/22 08/05/22 08/05/22 07:25 11:07 16:25 MCV MCH MCHC RDW Plt Count MPV Absolute Nucleated RBC Nucleated RBC % (auto) Anion Gap Estim Creat Clear Calc Estimated GFR POC Glucose 194 H 203 H Random Glucose Calcium Blood Type O Positive Antibody Screen NEGATIVE Crossmatch See Detail 08/05/22 08/06/22 08/06/22 20:26 05:21 05:21 MCV 96.0 MCH 31.5 MCHC 32.8 RDW 15.6 Plt Count 134 L MPV 11.1 Absolute Nucleated RBC 0.000 Nucleated RBC % (auto) 0.0 Anion Gap 13 Estim Creat Clear Calc 17.1 Estimated GFR 17 POC Glucose 232 H Random Glucose 158 H Calcium 7.9 L Blood Type Antibody Screen Crossmatch 08/06/22 07:34 MCV MCH MCHC RDW Plt Count MPV Absolute Nucleated RBC Nucleated RBC % (auto) Anion Gap Estim Creat Clear Calc Estimated GFR POC Glucose 158 H Random Glucose Calcium Blood Type Antibody Screen Crossmatch Microbiology Microbiology Results: Microbiology 08/01/22 08:08 Blood Culture - Final Blood - Venous No growth after 5 days. 08/01/22 08:08 Blood Culture - Final Blood - Venous No growth after 5 days. Assessment and Plan (1) Cao catheter problem: Status: Acute (2) Hematuria: Status: Acute (3) Bladder mass: Status: Acute (4) Anemia: Status: Acute Plan 81-year-old male with past medical history of acute osteomyelitis recently discharged from the hospital on 6 weeks of ertapenem, as well as peripheral vascular disease status post SFA atherectomy earlier this month, was to be on Plavix and aspirin for 6 months presents to the hospital with gross hematuria, as well as positive stool occult Acute on chronic anemia secondary to acute blood loss from hematuria as well as GI bleed s/p 4 units PRBC HH today 6.3/19.2 transfuse 2 units today Acute gross hematuria in the setting of history of bladder mass as noted in his EMR - per primary urologist at [facility] called to update her that mass was malignant recently started on Plavix and aspirin for SFA atherectomy Plavix, aspirin on hold s/p 4 units PRBC seen by urology> plan for cysto tomorrow Acute GI bleed has positive stool occult. started on pantoprazole IV b.i.d. seen by GI - s/p EGD 08/02 with mild gastric erythema and non-bleeding AVMs, no bleeding seen in the UGI- anemia thought r/t to persistent hematuria DEON on CKD3 secondary to obstructive uropathy and renal hypoperfusion baseline of around 2, SCr still around 3 r/t obstructive uropathy/urinary retention s/p IV fluids seen by nephrology - rec to start sodium bicarb f/c, CBI follow BMP urinary retention status post Cao catheter in place seen by urology - rec outpatient cystoscopy, started on finasteride, doxazosin thrombocytopenia dilutional follow CBC toxic metabolic encephalopathy related to DEON hypotension. Resolved asymptomatic likely r/t bleeding, no sepsis improved with blood transfusion metoprolol on hold recent acute osteomyelitis wound cultures showed MSSA plus strep viridan ertapenem x6 weeks since 07/16 (end date 08/30) will switch to meropenem inpatient local wound care followed by vascular outpatient, recent procedure done as above diabetes continue sliding scale insulin, hold oral antihyperglycemics DVT prophylaxis: SCDs attending - dr. Mcarthur Patient requires ongoing inpatient hospitalization for management of persistent hematuria, blood pressure monitoring Time Spent With Patient Time: Total time managing care of this patient today ____ minutes. Quality Stroke Does the patient have a stroke diagnosis?: No VTE Prior VTE?: No VTE Risk Level:: Medical - moderate - high VTE Device Contraindication: N/A - Device Ordered VTE Drug Contraindication: Treatment Not Indicated
[2022-08-06 11:28] LABS: Glucose, Whole Blood 240 mg/dL (60-115)
--- NOTE | 2022-08-06 13:45 | MHC.CM.PN ---
per rounds pt not ready for dc dc plans remain home with hvnns and private help
[2022-08-06 16:17] LABS: Glucose, Whole Blood 220 mg/dL (60-115)
--- NOTE | 2022-08-06 17:16 | PC.NURSE ---
1700 blood backing up into CBI solution bag, irrigated 3 times resulting in multiple small clots to come out, Dr. Schneider notified and suggested to increased rate of CBI; CBI was already at max rate, MD notified with no new orders at this time. Patient with less discomfort after irrigation
[2022-08-06 20:25] LABS: Glucose, Whole Blood 222 mg/dL (60-115)
[2022-08-06] MEDS: Doxazosin Mesylate 2 MG TABLET 4 MG PO (20:36)
[2022-08-06] MEDS: Atorvastatin Calcium 20 MG TABLET PO (20:37)
[2022-08-06] MEDS: Acetaminophen 325 MG TABLET 650 MG PO (23:28)
[2022-08-07] VITALS (16 sets, daily range): BP systolic 110–146; BP diastolic 51–76; PULSE 59–115; RESP 16–20; TEMP 36–37; O2SAT 92–100
[2022-08-07] MEDS: Pantoprazole Sodium 40 MG/10 ML VIAL IVPUSH (05:50)
[2022-08-07 06:11] LABS: Hematocrit 25.1 % (42.0-52.0); Hemoglobin 8.5 g/dl (14.0-18.0); Mean Corpuscular HGB Conc 33.9 g/dl (31.0-36.0); Mean Corpuscular Hemoglobin 31.5 pg (27.0-33.0); Mean Platelet Volume 10.8 fL (9.4-12.4); Platelet Count 153 X10*3/uL (160-400); Red Cell Distribution Width 16.5 % (11.0-16.0); White Blood Count 11.7 X10*3/uL (4.8-10.8)
[2022-08-07 06:42] LABS: Anion Gap 15 (12-20); Blood Urea Nitrogen 57 mg/dL (9-16); Calcium 7.8 mg/dL (8.4-10.2); Carbon Dioxide 19 mmol/L (22-29); Chloride 110 mmol/L (96-108); Glucose Random 139 mg/dL (60-115); Potassium 4.3 mmol/L (3.3-5.1); Sodium 140 mmol/L (135-145)
--- NOTE | 2022-08-07 06:47 | P.HPSUR_ITS ---
Pre-Procedural Eval Section A Date of Service: 08/07/22 The patient is an INPATIENT: Yes Section B Chief Complaint: Hematuria, GI Bleed Allergies: Allergies Allergy/AdvReac Type Severity Reaction Status Date / Time lisinopril [LISINOPRIL] Allergy Severe ANGIOEDEMA Verified 08/01/22 00:51 Plan Diagnosis/Plan: Unchanged I have reviewed the history and physical and performed a pertinent physical examination on my patient. No changes have occurred unless specified. Cystoscopy Evacuation of bladder clots, Fulguration, possible bladder biopsy, r etrogrades Time Spent With Patient Time: Total time managing care of this patient today ____ minutes.
[2022-08-07 06:51] LABS: Creatinine Clr Calc Pharmacy 13.2; Estimated Glomerular Filt Rate 13
[2022-08-07 06:54] LABS: Glucose, Whole Blood 152 mg/dL (60-115)
--- NOTE | 2022-08-07 07:24 | PC.NURSE ---
Report per Floor RN patient confused. Per this RNs assessment, patient not oriented to time. Faye, HCP used to obtain consent.
--- NOTE | 2022-08-07 07:27 | PM.PNNEP ---
Subjective Subjective Date of Service: 08/07/22 Interval history: events noted Physical Exam Vital Signs: Vital Signs: Last Vital Signs Temp 97.5 F 08/07/22 06:53 Pulse 107 H 08/07/22 06:53 Resp 18 08/07/22 06:53 BP 117/53 L 08/07/22 06:53 Pulse Ox 96 08/07/22 06:53 O2 Del Method Room Air 08/07/22 06:53 BMI result Body Mass Index 26.2 Const: General: alert and awake HEENT: Head: Yes normocephalic and Yes atraumatic Neck: Neck: Yes supple Resp: Effort & Inspection: normal respiratory effort Cardio: Heart sounds: S1 normal heart sound present and S2 normal heart sound present GI: Palpation (GI): Soft to palpation and nontender Extrem: Right upper extremity: no edema Objective Data Labs 08/07/22 05:16 08/07/22 05:16 Labs: Laboratory Results - last 24 hr 08/04/22 08/06/22 08/06/22 07:25 07:34 11:24 WBC RBC Hgb Hct MCV MCH MCHC RDW Plt Count MPV Absolute Nucleated RBC Nucleated RBC % (auto) Sodium Potassium Chloride Carbon Dioxide Anion Gap BUN Creatinine Estim Creat Clear Calc Estimated GFR POC Glucose 158 H 240 H Random Glucose Calcium Blood Type O Positive Antibody Screen NEGATIVE Crossmatch See Detail 08/06/22 08/06/22 08/07/22 16:07 20:16 05:16 WBC 11.7 H RBC 2.70 L D Hgb 8.5 L D Hct 25.1 L D MCV 93.0 MCH 31.5 MCHC 33.9 RDW 16.5 H Plt Count 153 L MPV 10.8 Absolute Nucleated RBC 0.000 Nucleated RBC % (auto) 0.0 Sodium Potassium Chloride Carbon Dioxide Anion Gap BUN Creatinine Estim Creat Clear Calc Estimated GFR POC Glucose 220 H 222 H Random Glucose Calcium Blood Type Antibody Screen Crossmatch 08/07/22 08/07/22 05:16 06:50 WBC RBC Hgb Hct MCV MCH MCHC RDW Plt Count MPV Absolute Nucleated RBC Nucleated RBC % (auto) Sodium 140 Potassium 4.3 Chloride 110 H Carbon Dioxide 19 L Anion Gap 15 BUN 57 H Creatinine 4.44 H* Estim Creat Clear Calc 13.2 Estimated GFR 13 POC Glucose 152 H Random Glucose 139 H Calcium 7.8 L Blood Type Antibody Screen Crossmatch Microbiology Microbiology Results: Microbiology 08/01/22 08:08 Blood - Venous Blood Culture - Final No growth after 5 days. 08/01/22 08:08 Blood - Venous Blood Culture - Final No growth after 5 days. 08/01/22 Unknown Urine Catheterized - Straight Catheter Urine Culture - Final No growth. Procedures Date of Service Date of Service: 08/07/22 Assessment & Plan Assessment and plan (1) DEON (acute kidney injury): Status: Resolved (2) CKD (chronic kidney disease) stage 3, GFR 30-59 ml/min: Status: Acute Plan kidney function worse CT scan showed ?left hydronephrosis and UPJ obstruction, left renal stone and question focal bladder wall thickening along the dome and right lateral bladder wall ? DEON due to: -obstructive uropathy -renal hypoperfusion renal US showed previously b/l hydronephrosis known CKD baseline Scr ~ 2 mg/dl REC cystoscopy today for evacuation of blood clots and possible bladder biopsy CBI follow kidney function and electrolytes Time Spent With Patient Time: Total time managing care of this patient today ____ minutes. Progress Note: Quality Stroke Does the patient have a stroke diagnosis?: No
--- NOTE | 2022-08-07 08:48 | HO.ANESPROP2 ---
HPI - Anesthesia Eval Consult details Narrative: for cyssto evacuation of hematoma and bladder bx PMFSH Active Problems Active Problems: All Active Problems (Updated 08/06/22 @ 13:32 by George Youngblood MD) BPH loc w urin obs/LUTS (Acute) Hydronephrosis (Acute) Iron deficiency anemia (Acute) Heme positive stool (Acute) Cao catheter problem (Acute) Encounter for interrogation of cardiac pacemaker (Acute) Symptomatic bradycardia (Acute) Congestive heart failure with LV diastolic dysfunction, NYHA class 3 (Acute) Type 2 diabetes mellitus with unspecified complications (Acute) Mitral annular calcification (Acute) Diabetic foot ulcer (Acute) Cellulitis of foot, right (Acute) CKD (chronic kidney disease) stage 3, GFR 30-59 ml/min (Acute) Diabetic osteomyelitis (Acute) Metabolic acidosis (Acute) Acute urinary retention (Acute) Hematuria (Acute) Bladder mass (Acute) Acute GI bleeding (Acute) Anemia (Acute) Intertriginous candidiasis (Acute) Acute kidney injury superimposed on CKD (Acute) Gross hematuria (Acute) Ulcer of right 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 (Acute) PAD (peripheral artery disease) (Acute) Infection of right foot (Acute) Acute osteomyelitis (Acute) History of atherectomy (Acute) Heart block (Acute) Past Medical History Medical History (Updated 08/06/22 @ 13:32 by George Youngblood MD) Acute osteomyelitis Back pain Decubitus ulcer, heel Diabetes mellitus Gram-negative bacteremia H/O cardiac pacemaker Heart block History of COVID-19 Hyperlipidemia Hypertension Infection of right foot Iron deficiency anemia PAD (peripheral artery disease) Ulcer of left heel Ulcer of right 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 Urinary retention Family History Family History Brother Testicular cancer Family history of problems with anesthesia: No Surgical History Surgical History History of atherectomy History of back surgery History of esophagogastroduodenoscopy History of left hip replacement Hx of cataract extraction Hx of colonoscopy History of Problems with Anesthesia: No Social History Social History Household Members: Spouse Household Members Other:: 2 Housing: House Do you presently have visiting nurse or other home services: Yes ([facility]) Alcohol intake: former Patient Tobacco Use Status: Former Tobacco user Tobacco use type: Cigarette Advance Directives Date on File: 07/12/22 service: No Current occupational status: retired Meds Allergies Allergy/AdvReac Type Severity Reaction Status Date / Time lisinopril [LISINOPRIL] Allergy Severe ANGIOEDEMA Verified 08/01/22 00:51 Active Medications: Current Medications Acetaminophen (Acetaminophen 325 Mg Tablet) 650 mg PO Q6H PRN PRN Reason: Pain, Mild (Pain Scale 1-3) Last Admin: 08/06/22 23:28 Dose: 650 mg Atorvastatin Calcium (Atorvastatin Calcium 20 Mg Tablet) 20 mg PO BEDTIME [facility] Last Admin: 08/06/22 20:37 Dose: 20 mg Docusate Sodium (Docusate Sodium 100 Mg Capsule) 100 mg PO DAILY [facility] Last Admin: 08/06/22 08:13 Dose: 100 mg Doxazosin Mesylate (Doxazosin Mesylate 2 Mg Tablet) 4 mg PO BEDTIME [facility]; Protocol Last Admin: 08/06/22 20:36 Dose: 4 mg Empagliflozin (Empagliflozin 10 Mg Tablet) 10 mg PO DAILY [facility] Last Admin: 08/06/22 08:12 Dose: 10 mg Finasteride (Finasteride 5 Mg Tablet) 5 mg PO DAILY [facility] Last Admin: 08/06/22 08:14 Dose: 5 mg Glucose (Glucose Gel 15 Gm Gel..Gram.) 15 gm PO Q15M PRN; Protocol PRN Reason: per Hypoglycemia Standing Ord. Glucose (Glucose Gel 15 Gm Gel..Gram.) 15 gm PO Q15M PRN; Protocol PRN Reason: per Hypoglycemia Standing Ord. Dextrose (D10) 250 mls @ 750 mls/hr IV Q15M PRN; Protocol PRN Reason: per Hypoglycemia Standing Ord. Meropenem 500 mg/ Sodium (Chloride) 50 mls @ 100 mls/hr IV Q12H [facility] Last Infusion: 08/06/22 21:17 Dose: Infused Dextrose (D10) 250 mls @ 750 mls/hr IV Q15M PRN; Protocol PRN Reason: per Hypoglycemia Standing Ord. Insulin Human Lispro (Insulin Lispro 100 Unit/Ml 3 Ml Vial) 0 unit SUBCUT QIDACHS [facility]; Protocol Last Admin: 08/06/22 22:22 Dose: 4 unit Metoprolol Tartrate (Metoprolol Tartrate 12.5 Mg Halftab) 12.5 mg PO BID [facility]; Protocol Last Admin: 08/04/22 07:51 Dose: 12.5 mg Nystatin (Nystatin Powder 15 Gm Bottle) 1 appl TOPICAL BID [facility]; Protocol Last Admin: 08/06/22 20:37 Dose: 1 appl Ondansetron HCl (Ondansetron Hcl 4 Mg/2 Ml Vial) 4 mg IVPUSH Q8H PRN PRN Reason: Nausea and Vomiting Pantoprazole Sodium (Pantoprazole Sodium 40 Mg/10 Ml Vial) 40 mg IVPUSH BID@0630,1630 [facility] Last Admin: 08/07/22 05:50 Dose: 40 mg Pharmacy Consult (Consult Rx Perform Med Rec) 1 each MISCELLANE ONCE PRN PRN Reason: Consult order Polyethylene Glycol (Polyethylene Glycol 3350 17 Gm Powd.Pack) 17 gm PO DAILY PRN PRN Reason: Constipation Sodium Bicarbonate (Sodium Bicarbonate 650 Mg Tablet) 650 mg PO BID [facility] Last Admin: 08/06/22 20:36 Dose: 650 mg Sodium Chloride (0.9 % Sodium Chloride Flush 3 Ml Syringe) 3 ml IVFLUSH QSHIFT [facility] Last Admin: 08/07/22 00:27 Dose: Not Given Sodium Chloride (Sodium Chloride 0.65 % Nasal 44 Ml Sprbtl) 1 spray NOSTRIL-B Q1H PRN PRN Reason: Dry Nasal Passages Vitamin D (Cholecalciferol (Vitamin D3) 25 Mcg Tablet) 50 mcg PO DAILY [facility] Last Admin: 08/06/22 08:12 Dose: 50 mcg Home Medications Medication Instructions Recorded Confirmed Last Taken Type metoprolol tartrate 25 mg tablet 25 mg PO BID 03/17/20 08/01/22 07/11/22 History simvastatin 40 mg tablet 40 mg PO BEDTIME 03/17/20 08/01/22 07/11/22 History blood sugar diagnostic (OneTouch #10 ea 11/11/20 08/01/22 Unknown History Verio test strips) pantoprazole 20 mg tablet,delayed 20 mg PO DAILY 11/11/20 08/01/22 07/11/22 History release glipizide 2.5 mg tablet, extended 2.5 mg PO DAILY 12/19/20 08/01/22 07/11/22 History release 24 hr cholecalciferol (vitamin D3) 50 50 mcg PO DAILY 07/11/22 08/01/22 07/11/22 History mcg (2,000 unit) tablet dulaglutide 4.5 mg/0.5 mL 4.5 mg subcut WE 07/11/22 08/01/22 07/11/22 History subcutaneous pen injector (Trulicity) empagliflozin 10 mg tablet 10 mg PO DAILY 07/11/22 08/01/22 07/11/22 History (Jardiance) Exam Exam Date and Time: August 07, 2022 0848 Height,Weight and Vital Signs: Height 5 ft 9 in Weight 80.6 kg Last Vital Signs Temp 97.5 F 08/07/22 06:53 Pulse 107 H 08/07/22 06:53 Resp 18 08/07/22 06:53 BP 117/53 L 08/07/22 06:53 Pulse Ox 96 08/07/22 06:53 O2 Del Method Room Air 08/07/22 06:53 Pertinent Lab Results Pertinent Lab Results: Laboratory Tests 08/01/22 08/01/22 08/01/22 01:07 01:07 03:27 WBC 14.0 H RBC 2.99 L Hgb 9.0 L Hct 26.9 L D MCV 90.0 MCH 30.1 MCHC 33.5 RDW 14.3 Plt Count 238 MPV 10.5 Immature Gran % (Auto) 0.5 H Neut % (Auto) 88.1 H Lymph % (Auto) 4.3 L [place] % (Auto) 6.1 Eos % (Auto) 0.6 Baso % (Auto) 0.4 Lymph # (Auto) 0.6 L [place] # (Auto) 0.9 Eos # (Auto) 0.1 Baso # (Auto) 0.1 Abs Immat Gran (auto) 0.07 H Absolute Neuts (auto) 12.3 H Absolute Nucleated RBC 0.000 Nucleated RBC % (auto) 0.0 Sodium 139 Potassium 5.0 Chloride 107 Carbon Dioxide 21 L Anion Gap 16 BUN 68 H Creatinine 3.50 H Estim Creat Clear Calc 18.5 Estimated GFR 17 POC Glucose Random Glucose 246 H Lactic Acid Calcium 8.7 Total Bilirubin 0.6 Direct Bilirubin 0.2 AST 25 ALT 15 Alkaline Phosphatase 93 Total Protein 6.0 L Albumin 3.1 L Lipase 47 Urine Color Urine Appearance Urine pH Ur Specific [place] Urine Protein Urine Glucose (UA) Urine Ketones Urine Blood Urine Nitrite Ur Leukocyte Esterase Urine RBC Urine WBC Ur Squamous Epith Cells Urine Bacteria Hyaline Casts Ur Random Sodium Urine Creatinine Stool Occult Blood Blood Type O Positive Antibody Screen NEGATIVE Crossmatch See Detail 08/01/22 08/01/22 08/01/22 03:29 03:29 07:00 WBC RBC Hgb Hct MCV MCH MCHC RDW Plt Count MPV Immature Gran % (Auto) Neut % (Auto) Lymph % (Auto) [place] % (Auto) Eos % (Auto) Baso % (Auto) Lymph # (Auto) [place] # (Auto) Eos # (Auto) Baso # (Auto) Abs Immat Gran (auto) Absolute Neuts (auto) Absolute Nucleated RBC Nucleated RBC % (auto) Sodium Potassium Chloride Carbon Dioxide Anion Gap BUN Creatinine Estim Creat Clear Calc Estimated GFR POC Glucose 146 H Random Glucose Lactic Acid Calcium Total Bilirubin Direct Bilirubin AST ALT Alkaline Phosphatase Total Protein Albumin Lipase Urine Color Straw Urine Appearance Hazy Urine pH 7.0 Ur Specific [place] 1.020 Urine Protein 300 (3+) H Urine Glucose (UA) >=1000 H Urine Ketones Trace Urine Blood Large (3+) H Urine Nitrite Positive H Ur Leukocyte Esterase Trace H Urine RBC >20 H Urine WBC 6-10 H Ur Squamous Epith Cells 3-5 Urine Bacteria Trace Hyaline Casts 0-2 Ur Random Sodium Urine Creatinine Stool Occult Blood POSITIVE Blood Type Antibody Screen Crossmatch 08/01/22 08/01/22 08/01/22 08:08 08:08 08:08 WBC 11.2 H RBC 2.89 L Hgb 8.6 L 8.6 L Hct 26.4 L 25.9 L MCV 91.3 MCH 29.8 MCHC 32.6 RDW 14.4 Plt Count 195 MPV 10.7 Immature Gran % (Auto) 0.4 Neut % (Auto) 82.9 H Lymph % (Auto) 8.6 L [place] % (Auto) 6.1 Eos % (Auto) 1.6 Baso % (Auto) 0.4 Lymph # (Auto) 1.0 L [place] # (Auto) 0.7 Eos # (Auto) 0.2 Baso # (Auto) 0.0 Abs Immat Gran (auto) 0.04 H Absolute Neuts (auto) 9.3 H Absolute Nucleated RBC 0.000 Nucleated RBC % (auto) 0.0 Sodium 140 Potassium 4.3 Chloride 109 H Carbon Dioxide 23 Anion Gap 12 BUN 64 H Creatinine 3.39 H Estim Creat Clear Calc 19.1 Estimated GFR 18 POC Glucose Random Glucose 142 H Lactic Acid Calcium 8.4 Total Bilirubin Direct Bilirubin AST ALT Alkaline Phosphatase Total Protein Albumin Lipase Urine Color Urine Appearance Urine pH Ur Specific [place] Urine Protein Urine Glucose (UA) Urine Ketones Urine Blood Urine Nitrite Ur Leukocyte Esterase Urine RBC Urine WBC Ur Squamous Epith Cells Urine Bacteria Hyaline Casts Ur Random Sodium Urine Creatinine Stool Occult Blood Blood Type Antibody Screen Crossmatch 08/01/22 08/01/22 08/01/22 08:08 08:38 11:05 WBC RBC Hgb Hct MCV MCH MCHC RDW Plt Count MPV Immature Gran % (Auto) Neut % (Auto) Lymph % (Auto) [place] % (Auto) Eos % (Auto) Baso % (Auto) Lymph # (Auto) [place] # (Auto) Eos # (Auto) Baso # (Auto) Abs Immat Gran (auto) Absolute Neuts (auto) Absolute Nucleated RBC Nucleated RBC % (auto) Sodium Potassium Chloride Carbon Dioxide Anion Gap BUN Creatinine Estim Creat Clear Calc Estimated GFR POC Glucose 146 H 149 H Random Glucose Lactic Acid 0.9 Calcium Total Bilirubin Direct Bilirubin AST ALT Alkaline Phosphatase Total Protein Albumin Lipase Urine Color Urine Appearance Urine pH Ur Specific [place] Urine Protein Urine Glucose (UA) Urine Ketones Urine Blood Urine Nitrite Ur Leukocyte Esterase Urine RBC Urine WBC Ur Squamous Epith Cells Urine Bacteria Hyaline Casts Ur Random Sodium Urine Creatinine Stool Occult Blood Blood Type Antibody Screen Crossmatch 08/01/22 08/01/22 08/01/22 11:47 11:47 16:12 WBC RBC Hgb Hct MCV MCH MCHC RDW Plt Count MPV Immature Gran % (Auto) Neut % (Auto) Lymph % (Auto) [place] % (Auto) Eos % (Auto) Baso % (Auto) Lymph # (Auto) [place] # (Auto) Eos # (Auto) Baso # (Auto) Abs Immat Gran (auto) Absolute Neuts (auto) Absolute Nucleated RBC Nucleated RBC % (auto) Sodium Potassium Chloride Carbon Dioxide Anion Gap BUN Creatinine Estim Creat Clear Calc Estimated GFR POC Glucose 159 H Random Glucose Lactic Acid Calcium Total Bilirubin Direct Bilirubin AST ALT Alkaline Phosphatase Total Protein Albumin Lipase Urine Color Urine Appearance Urine pH Ur Specific [place] Urine Protein Urine Glucose (UA) Urine Ketones Urine Blood Urine Nitrite Ur Leukocyte Esterase Urine RBC Urine WBC Ur Squamous Epith Cells Urine Bacteria Hyaline Casts Ur Random Sodium 100.0 Urine Creatinine 27.97 Stool Occult Blood Blood Type Antibody Screen Crossmatch 08/01/22 08/02/22 08/02/22 19:36 06:18 06:18 WBC 9.0 RBC 2.51 L Hgb 7.6 L Hct 23.5 L MCV 93.6 MCH 30.3 MCHC 32.3 RDW 14.8 Plt Count 161 MPV 11.3 Immature Gran % (Auto) Neut % (Auto) Lymph % (Auto) [place] % (Auto) Eos % (Auto) Baso % (Auto) Lymph # (Auto) [place] # (Auto) Eos # (Auto) Baso # (Auto) Abs Immat Gran (auto) Absolute Neuts (auto) Absolute Nucleated RBC 0.000 Nucleated RBC % (auto) 0.0 Sodium 142 Potassium 4.6 Chloride 109 H Carbon Dioxide 18 L Anion Gap 20 BUN 65 H Creatinine 3.35 H Estim Creat Clear Calc 17.5 Estimated GFR 18 POC Glucose 137 H Random Glucose 191 H Lactic Acid Calcium 8.5 Total Bilirubin Direct Bilirubin AST ALT Alkaline Phosphatase Total Protein Albumin Lipase Urine Color Urine Appearance Urine pH Ur Specific [place] Urine Protein Urine Glucose (UA) Urine Ketones Urine Blood Urine Nitrite Ur Leukocyte Esterase Urine RBC Urine WBC Ur Squamous Epith Cells Urine Bacteria Hyaline Casts Ur Random Sodium Urine Creatinine Stool Occult Blood Blood Type Antibody Screen Crossmatch 08/02/22 08/02/22 08/02/22 07:12 11:18 16:26 WBC RBC Hgb Hct MCV MCH MCHC RDW Plt Count MPV Immature Gran % (Auto) Neut % (Auto) Lymph % (Auto) [place] % (Auto) Eos % (Auto) Baso % (Auto) Lymph # (Auto) [place] # (Auto) Eos # (Auto) Baso # (Auto) Abs Immat Gran (auto) Absolute Neuts (auto) Absolute Nucleated RBC Nucleated RBC % (auto) Sodium Potassium Chloride Carbon Dioxide Anion Gap BUN Creatinine Estim Creat Clear Calc Estimated GFR POC Glucose 183 H 160 H 169 H Random Glucose Lactic Acid Calcium Total Bilirubin Direct Bilirubin AST ALT Alkaline Phosphatase Total Protein Albumin Lipase Urine Color Urine Appearance Urine pH Ur Specific [place] Urine Protein Urine Glucose (UA) Urine Ketones Urine Blood Urine Nitrite Ur Leukocyte Esterase Urine RBC Urine WBC Ur Squamous Epith Cells Urine Bacteria Hyaline Casts Ur Random Sodium Urine Creatinine Stool Occult Blood Blood Type Antibody Screen Crossmatch 08/02/22 08/02/22 08/03/22 16:45 20:14 03:06 WBC 9.2 RBC 2.64 L Hgb 7.7 L 8.2 L Hct 23.8 L 24.5 L MCV 92.8 MCH 31.1 MCHC 33.5 RDW 14.4 Plt Count 145 L MPV 10.9 Immature Gran % (Auto) Neut % (Auto) Lymph % (Auto) [place] % (Auto) Eos % (Auto) Baso % (Auto) Lymph # (Auto) [place] # (Auto) Eos # (Auto) Baso # (Auto) Abs Immat Gran (auto) Absolute Neuts (auto) Absolute Nucleated RBC 0.000 Nucleated RBC % (auto) 0.0 Sodium Potassium Chloride Carbon Dioxide Anion Gap BUN Creatinine Estim Creat Clear Calc Estimated GFR POC Glucose 235 H Random Glucose Lactic Acid Calcium Total Bilirubin Direct Bilirubin AST ALT Alkaline Phosphatase Total Protein Albumin Lipase Urine Color Urine Appearance Urine pH Ur Specific [place] Urine Protein Urine Glucose (UA) Urine Ketones Urine Blood Urine Nitrite Ur Leukocyte Esterase Urine RBC Urine WBC Ur Squamous Epith Cells Urine Bacteria Hyaline Casts Ur Random Sodium Urine Creatinine Stool Occult Blood Blood Type Antibody Screen Crossmatch 08/03/22 08/03/22 08/03/22 03:06 07:08 09:47 WBC 8.5 RBC 2.47 L Hgb 7.8 L Hct 23.2 L MCV 93.9 MCH 31.6 MCHC 33.6 RDW 14.5 Plt Count 129 L MPV 11.2 Immature Gran % (Auto) Neut % (Auto) Lymph % (Auto) [place] % (Auto) Eos % (Auto) Baso % (Auto) Lymph # (Auto) [place] # (Auto) Eos # (Auto) Baso # (Auto) Abs Immat Gran (auto) Absolute Neuts (auto) Absolute Nucleated RBC 0.000 Nucleated RBC % (auto) 0.0 Sodium 141 Potassium 4.2 Chloride 109 H Carbon Dioxide 22 Anion Gap 14 BUN 62 H Creatinine 3.04 H Estim Creat Clear Calc 19.3 Estimated GFR 20 POC Glucose 159 H Random Glucose 150 H Lactic Acid Calcium 8.3 L Total Bilirubin Direct Bilirubin AST ALT Alkaline Phosphatase Total Protein Albumin Lipase Urine Color Urine Appearance Urine pH Ur Specific [place] Urine Protein Urine Glucose (UA) Urine Ketones Urine Blood Urine Nitrite Ur Leukocyte Esterase Urine RBC Urine WBC Ur Squamous Epith Cells Urine Bacteria Hyaline Casts Ur Random Sodium Urine Creatinine Stool Occult Blood Blood Type Antibody Screen Crossmatch 08/03/22 08/03/22 08/03/22 11:24 15:37 16:17 WBC RBC Hgb 7.9 L Hct 23.4 L MCV MCH MCHC RDW Plt Count MPV Immature Gran % (Auto) Neut % (Auto) Lymph % (Auto) [place] % (Auto) Eos % (Auto) Baso % (Auto) Lymph # (Auto) [place] # (Auto) Eos # (Auto) Baso # (Auto) Abs Immat Gran (auto) Absolute Neuts (auto) Absolute Nucleated RBC Nucleated RBC % (auto) Sodium Potassium Chloride Carbon Dioxide Anion Gap BUN Creatinine Estim Creat Clear Calc Estimated GFR POC Glucose 214 H 126 H Random Glucose Lactic Acid Calcium Total Bilirubin Direct Bilirubin AST ALT Alkaline Phosphatase Total Protein Albumin Lipase Urine Color Urine Appearance Urine pH Ur Specific [place] Urine Protein Urine Glucose (UA) Urine Ketones Urine Blood Urine Nitrite Ur Leukocyte Esterase Urine RBC Urine WBC Ur Squamous Epith Cells Urine Bacteria Hyaline Casts Ur Random Sodium Urine Creatinine Stool Occult Blood Blood Type Antibody Screen Crossmatch 08/03/22 08/04/22 08/04/22 19:33 05:35 05:35 WBC 6.8 RBC 2.30 L Hgb 7.1 L Hct 21.5 L MCV 93.5 MCH 30.9 MCHC 33.0 RDW 14.8 Plt Count 134 L MPV 11.2 Immature Gran % (Auto) Neut % (Auto) Lymph % (Auto) [place] % (Auto) Eos % (Auto) Baso % (Auto) Lymph # (Auto) [place] # (Auto) Eos # (Auto) Baso # (Auto) Abs Immat Gran (auto) Absolute Neuts (auto) Absolute Nucleated RBC 0.000 Nucleated RBC % (auto) 0.0 Sodium 141 Potassium 4.1 Chloride 110 H Carbon Dioxide 20 L Anion Gap 15 BUN 58 H Creatinine 3.01 H Estim Creat Clear Calc 19.5 Estimated GFR 20 POC Glucose 177 H Random Glucose 162 H Lactic Acid Calcium 8.0 L Total Bilirubin Direct Bilirubin AST ALT Alkaline Phosphatase Total Protein Albumin Lipase Urine Color Urine Appearance Urine pH Ur Specific [place] Urine Protein Urine Glucose (UA) Urine Ketones Urine Blood Urine Nitrite Ur Leukocyte Esterase Urine RBC Urine WBC Ur Squamous Epith Cells Urine Bacteria Hyaline Casts Ur Random Sodium Urine Creatinine Stool Occult Blood Blood Type Antibody Screen Crossmatch 08/04/22 08/04/22 08/04/22 07:25 07:35 11:24 WBC RBC Hgb Hct MCV MCH MCHC RDW Plt Count MPV Immature Gran % (Auto) Neut % (Auto) Lymph % (Auto) [place] % (Auto) Eos % (Auto) Baso % (Auto) Lymph # (Auto) [place] # (Auto) Eos # (Auto) Baso # (Auto) Abs Immat Gran (auto) Absolute Neuts (auto) Absolute Nucleated RBC Nucleated RBC % (auto) Sodium Potassium Chloride Carbon Dioxide Anion Gap BUN Creatinine Estim Creat Clear Calc Estimated GFR POC Glucose 154 H 194 H Random Glucose Lactic Acid Calcium Total Bilirubin Direct Bilirubin AST ALT Alkaline Phosphatase Total Protein Albumin Lipase Urine Color Urine Appearance Urine pH Ur Specific [place] Urine Protein Urine Glucose (UA) Urine Ketones Urine Blood Urine Nitrite Ur Leukocyte Esterase Urine RBC Urine WBC Ur Squamous Epith Cells Urine Bacteria Hyaline Casts Ur Random Sodium Urine Creatinine Stool Occult Blood Blood Type O Positive Antibody Screen NEGATIVE Crossmatch See Detail 08/04/22 08/04/22 08/04/22 16:04 16:10 20:39 WBC RBC Hgb 7.6 L Hct 22.7 L MCV MCH MCHC RDW Plt Count MPV Immature Gran % (Auto) Neut % (Auto) Lymph % (Auto) [place] % (Auto) Eos % (Auto) Baso % (Auto) Lymph # (Auto) [place] # (Auto) Eos # (Auto) Baso # (Auto) Abs Immat Gran (auto) Absolute Neuts (auto) Absolute Nucleated RBC Nucleated RBC % (auto) Sodium Potassium Chloride Carbon Dioxide Anion Gap BUN Creatinine Estim Creat Clear Calc Estimated GFR POC Glucose 158 H 179 H Random Glucose Lactic Acid Calcium Total Bilirubin Direct Bilirubin AST ALT Alkaline Phosphatase Total Protein Albumin Lipase Urine Color Urine Appearance Urine pH Ur Specific [place] Urine Protein Urine Glucose (UA) Urine Ketones Urine Blood Urine Nitrite Ur Leukocyte Esterase Urine RBC Urine WBC Ur Squamous Epith Cells Urine Bacteria Hyaline Casts Ur Random Sodium Urine Creatinine Stool Occult Blood Blood Type Antibody Screen Crossmatch 08/05/22 08/05/22 08/05/22 05:22 05:22 07:57 WBC 6.0 RBC 2.31 L Hgb 7.4 L Hct 21.9 L MCV 94.8 MCH 32.0 MCHC 33.8 RDW 15.3 Plt Count 152 L MPV 10.8 Immature Gran % (Auto) Neut % (Auto) Lymph % (Auto) [place] % (Auto) Eos % (Auto) Baso % (Auto) Lymph # (Auto) [place] # (Auto) Eos # (Auto) Baso # (Auto) Abs Immat Gran (auto) Absolute Neuts (auto) Absolute Nucleated RBC 0.000 Nucleated RBC % (auto) 0.0 Sodium 143 Potassium 3.9 Chloride 112 H Carbon Dioxide 22 Anion Gap 13 BUN 53 H Creatinine 3.18 H Estim Creat Clear Calc 18.5 Estimated GFR 19 POC Glucose 158 H Random Glucose 163 H Lactic Acid Calcium 8.0 L Total Bilirubin Direct Bilirubin AST ALT Alkaline Phosphatase Total Protein Albumin Lipase Urine Color Urine Appearance Urine pH Ur Specific [place] Urine Protein Urine Glucose (UA) Urine Ketones Urine Blood Urine Nitrite Ur Leukocyte Esterase Urine RBC Urine WBC Ur Squamous Epith Cells Urine Bacteria Hyaline Casts Ur Random Sodium Urine Creatinine Stool Occult Blood Blood Type Antibody Screen Crossmatch 08/05/22 08/05/22 08/05/22 11:07 16:25 20:26 WBC RBC Hgb Hct MCV MCH MCHC RDW Plt Count MPV Immature Gran % (Auto) Neut % (Auto) Lymph % (Auto) [place] % (Auto) Eos % (Auto) Baso % (Auto) Lymph # (Auto) [place] # (Auto) Eos # (Auto) Baso # (Auto) Abs Immat Gran (auto) Absolute Neuts (auto) Absolute Nucleated RBC Nucleated RBC % (auto) Sodium Potassium Chloride Carbon Dioxide Anion Gap BUN Creatinine Estim Creat Clear Calc Estimated GFR POC Glucose 194 H 203 H 232 H Random Glucose Lactic Acid Calcium Total Bilirubin Direct Bilirubin AST ALT Alkaline Phosphatase Total Protein Albumin Lipase Urine Color Urine Appearance Urine pH Ur Specific [place] Urine Protein Urine Glucose (UA) Urine Ketones Urine Blood Urine Nitrite Ur Leukocyte Esterase Urine RBC Urine WBC Ur Squamous Epith Cells Urine Bacteria Hyaline Casts Ur Random Sodium Urine Creatinine Stool Occult Blood Blood Type Antibody Screen Crossmatch 08/06/22 08/06/22 08/06/22 05:21 05:21 07:34 WBC 5.7 RBC 2.00 L Hgb 6.3 L* Hct 19.2 L* MCV 96.0 MCH 31.5 MCHC 32.8 RDW 15.6 Plt Count 134 L MPV 11.1 Immature Gran % (Auto) Neut % (Auto) Lymph % (Auto) [place] % (Auto) Eos % (Auto) Baso % (Auto) Lymph # (Auto) [place] # (Auto) Eos # (Auto) Baso # (Auto) Abs Immat Gran (auto) Absolute Neuts (auto) Absolute Nucleated RBC 0.000 Nucleated RBC % (auto) 0.0 Sodium 143 Potassium 4.0 Chloride 114 H Carbon Dioxide 20 L Anion Gap 13 BUN 52 H Creatinine 3.44 H Estim Creat Clear Calc 17.1 Estimated GFR 17 POC Glucose 158 H Random Glucose 158 H Lactic Acid Calcium 7.9 L Total Bilirubin Direct Bilirubin AST ALT Alkaline Phosphatase Total Protein Albumin Lipase Urine Color Urine Appearance Urine pH Ur Specific [place] Urine Protein Urine Glucose (UA) Urine Ketones Urine Blood Urine Nitrite Ur Leukocyte Esterase Urine RBC Urine WBC Ur Squamous Epith Cells Urine Bacteria Hyaline Casts Ur Random Sodium Urine Creatinine Stool Occult Blood Blood Type Antibody Screen Crossmatch 08/06/22 08/06/22 08/06/22 11:24 16:07 20:16 WBC RBC Hgb Hct MCV MCH MCHC RDW Plt Count MPV Immature Gran % (Auto) Neut % (Auto) Lymph % (Auto) [place] % (Auto) Eos % (Auto) Baso % (Auto) Lymph # (Auto) [place] # (Auto) Eos # (Auto) Baso # (Auto) Abs Immat Gran (auto) Absolute Neuts (auto) Absolute Nucleated RBC Nucleated RBC % (auto) Sodium Potassium Chloride Carbon Dioxide Anion Gap BUN Creatinine Estim Creat Clear Calc Estimated GFR POC Glucose 240 H 220 H 222 H Random Glucose Lactic Acid Calcium Total Bilirubin Direct Bilirubin AST ALT Alkaline Phosphatase Total Protein Albumin Lipase Urine Color Urine Appearance Urine pH Ur Specific [place] Urine Protein Urine Glucose (UA) Urine Ketones Urine Blood Urine Nitrite Ur Leukocyte Esterase Urine RBC Urine WBC Ur Squamous Epith Cells Urine Bacteria Hyaline Casts Ur Random Sodium Urine Creatinine Stool Occult Blood Blood Type Antibody Screen Crossmatch 08/07/22 08/07/22 08/07/22 05:16 05:16 06:50 WBC 11.7 H RBC 2.70 L D Hgb 8.5 L D Hct 25.1 L D MCV 93.0 MCH 31.5 MCHC 33.9 RDW 16.5 H Plt Count 153 L MPV 10.8 Immature Gran % (Auto) Neut % (Auto) Lymph % (Auto) [place] % (Auto) Eos % (Auto) Baso % (Auto) Lymph # (Auto) [place] # (Auto) Eos # (Auto) Baso # (Auto) Abs Immat Gran (auto) Absolute Neuts (auto) Absolute Nucleated RBC 0.000 Nucleated RBC % (auto) 0.0 Sodium 140 Potassium 4.3 Chloride 110 H Carbon Dioxide 19 L Anion Gap 15 BUN 57 H Creatinine 4.44 H* Estim Creat Clear Calc 13.2 Estimated GFR 13 POC Glucose 152 H Random Glucose 139 H Lactic Acid Calcium 7.8 L Total Bilirubin Direct Bilirubin AST ALT Alkaline Phosphatase Total Protein Albumin Lipase Urine Color Urine Appearance Urine pH Ur Specific [place] Urine Protein Urine Glucose (UA) Urine Ketones Urine Blood Urine Nitrite Ur Leukocyte Esterase Urine RBC Urine WBC Ur Squamous Epith Cells Urine Bacteria Hyaline Casts Ur Random Sodium Urine Creatinine Stool Occult Blood Blood Type Antibody Screen Crossmatch 08/07/22 07:23 WBC RBC Hgb Hct MCV MCH MCHC RDW Plt Count MPV Immature Gran % (Auto) Neut % (Auto) Lymph % (Auto) [place] % (Auto) Eos % (Auto) Baso % (Auto) Lymph # (Auto) [place] # (Auto) Eos # (Auto) Baso # (Auto) Abs Immat Gran (auto) Absolute Neuts (auto) Absolute Nucleated RBC Nucleated RBC % (auto) Sodium Potassium Chloride Carbon Dioxide Anion Gap BUN Creatinine Estim Creat Clear Calc Estimated GFR POC Glucose Random Glucose Lactic Acid Calcium Total Bilirubin Direct Bilirubin AST ALT Alkaline Phosphatase Total Protein Albumin Lipase Urine Color Urine Appearance Urine pH Ur Specific [place] Urine Protein Urine Glucose (UA) Urine Ketones Urine Blood Urine Nitrite Ur Leukocyte Esterase Urine RBC Urine WBC Ur Squamous Epith Cells Urine Bacteria Hyaline Casts Ur Random Sodium Urine Creatinine Stool Occult Blood Blood Type O Positive Antibody Screen NEGATIVE Crossmatch Assessment and Plan Assessment Anesthesia Assessment: Anesthesia Plan Discussed and Chart Reviewed Final Anesthetic Review Family History of Problems with Anesthesia: No History of Problems with Anesthesia: No ASA Class: III and Emergency Final Preanesthetic Review: No Changes in Pt Med Stat, Meds/Allgs Chart Reviewed, Consent Obtained/Reviewed () and Anes Risks/Benef Reviewed Patient Risk: Intermediate Procedure Risk: Low Anesthetic Plan Anesthetic Plan: GA Disposition: Standard PACU and Inp. Admit - Standard Bed
--- NOTE | 2022-08-07 09:52 | HO.PM.IMPN ---
Subjective Subjective Date of Service: 08/07/22 Interval History: seen and examined this morning for deon/hematuria continues with CBI seems to be leaking around catheter patient denies abdominal pain, nausea or vomiting Review of Systems Review of Systems: Yes all other systems are reviewed and are negative Constitutional Constitutional: Denies chills and Denies fever(s) Cardiovascular Cardiovascular: Denies chest pain, Denies palpitations and Denies dyspnea Respiratory Respiratory: Denies cough and Denies dyspnea Gastrointestinal Gastrointestinal: Denies abdominal pain, Denies nausea and Denies vomiting Endocrine Endocrine: Denies palpitations Physical Exam Vital Signs: Vital Signs: Last Vital Signs Temp 97.5 F 08/07/22 06:53 Pulse 107 H 08/07/22 06:53 Resp 18 08/07/22 06:53 BP 117/53 L 08/07/22 06:53 Pulse Ox 96 08/07/22 06:53 O2 Del Method Room Air 08/07/22 06:53 BMI result Body Mass Index 26.2 Appearing in no acute distress lung sounds are clear to auscultation heart regular rate rhythm, clear S1, S2 positive bowel sounds, abdomen is soft, nontender neuro patient is alert x3, no focal deficits Objective Data Active Medications Acetaminophen (Acetaminophen 325 Mg Tablet) 650 mg PO Q6H PRN PRN Reason: Pain, Mild (Pain Scale 1-3) Last Admin: 08/06/22 23:28 Dose: 650 mg Documented By: TAD Atorvastatin Calcium (Atorvastatin Calcium 20 Mg Tablet) 20 mg PO BEDTIME [facility] Last Admin: 08/06/22 20:37 Dose: 20 mg Documented By: CAPRICE Docusate Sodium (Docusate Sodium 100 Mg Capsule) 100 mg PO DAILY [facility] Last Admin: 08/06/22 08:13 Dose: 100 mg Documented By: AKBAR Doxazosin Mesylate (Doxazosin Mesylate 2 Mg Tablet) 4 mg PO BEDTIME [facility]; Protocol Last Admin: 08/06/22 20:36 Dose: 4 mg Documented By: CAPRICE Empagliflozin (Empagliflozin 10 Mg Tablet) 10 mg PO DAILY [facility] Last Admin: 08/06/22 08:12 Dose: 10 mg Documented By: AKBAR Fentanyl (Fentanyl Citrate/Pf 100 Mcg/2 Ml Vial) 25 mcg IVPUSH Q5M PRN; Protocol PRN Reason: Pain, Moderate(Pain Scale 4-6) Finasteride (Finasteride 5 Mg Tablet) 5 mg PO DAILY [facility] Last Admin: 08/06/22 08:14 Dose: 5 mg Documented By: AKBAR Glucose (Glucose Gel 15 Gm Gel..Gram.) 15 gm PO Q15M PRN; Protocol PRN Reason: per Hypoglycemia Standing Ord. Glucose (Glucose Gel 15 Gm Gel..Gram.) 15 gm PO Q15M PRN; Protocol PRN Reason: per Hypoglycemia Standing Ord. Dextrose (D10) 250 mls @ 750 mls/hr IV Q15M PRN; Protocol PRN Reason: per Hypoglycemia Standing Ord. Meropenem 500 mg/ Sodium (Chloride) 50 mls @ 100 mls/hr IV Q12H [facility] Last Infusion: 08/06/22 21:17 Dose: 0 mls/hr Documented By: HEIDYRISVeronique Dextrose (D10) 250 mls @ 750 mls/hr IV Q15M PRN; Protocol PRN Reason: per Hypoglycemia Standing Ord. Insulin Human Lispro (Insulin Lispro 100 Unit/Ml 3 Ml Vial) 0 unit SUBCUT QIDACHS [facility]; Protocol Last Admin: 08/07/22 08:56 Dose: Not Given Documented By: WILMAN Non-Admin Reason: Off Unit: Surgery Metoprolol Tartrate (Metoprolol Tartrate 12.5 Mg Halftab) 12.5 mg PO BID [facility]; Protocol Last Admin: 08/04/22 07:51 Dose: 12.5 mg Documented By: GUILLERMO Nystatin (Nystatin Powder 15 Gm Bottle) 1 appl TOPICAL BID [facility]; Protocol Last Admin: 08/06/22 20:37 Dose: 1 appl Documented By: CAPRICE Ondansetron HCl (Ondansetron Hcl 4 Mg/2 Ml Vial) 4 mg IVPUSH Q8H PRN PRN Reason: Nausea and Vomiting Pantoprazole Sodium (Pantoprazole Sodium 40 Mg/10 Ml Vial) 40 mg IVPUSH BID@0630,1630 [facility] Last Admin: 08/07/22 05:50 Dose: 40 mg Documented By: CAPRICE Pharmacy Consult (Consult Rx Perform Med Rec) 1 each MISCELLANE ONCE PRN PRN Reason: Consult order Polyethylene Glycol (Polyethylene Glycol 3350 17 Gm Powd.Pack) 17 gm PO DAILY PRN PRN Reason: Constipation Sodium Bicarbonate (Sodium Bicarbonate 650 Mg Tablet) 650 mg PO BID [facility] Last Admin: 08/06/22 20:36 Dose: 650 mg Documented By: CAPRICE Sodium Chloride (0.9 % Sodium Chloride Flush 3 Ml Syringe) 3 ml IVFLUSH QSHIFT [facility] Last Admin: 08/07/22 00:27 Dose: Not Given Documented By: CAPRICE Non-Admin Reason: pt has a PICC line Sodium Chloride (Sodium Chloride 0.65 % Nasal 44 Ml Sprbtl) 1 spray NOSTRIL-B Q1H PRN PRN Reason: Dry Nasal Passages Vitamin D (Cholecalciferol (Vitamin D3) 25 Mcg Tablet) 50 mcg PO DAILY [facility] Last Admin: 08/06/22 08:12 Dose: 50 mcg Documented By: AKBAR Labs 08/07/22 05:16 08/07/22 05:16 Labs: Laboratory Results - last 24 hr 08/04/22 08/06/22 08/06/22 07:25 11:24 16:07 MCV MCH MCHC RDW Plt Count MPV Absolute Nucleated RBC Nucleated RBC % (auto) Anion Gap Estim Creat Clear Calc Estimated GFR POC Glucose 240 H 220 H Random Glucose Calcium Blood Type O Positive Antibody Screen NEGATIVE Crossmatch See Detail 08/06/22 08/07/22 08/07/22 20:16 05:16 05:16 MCV 93.0 MCH 31.5 MCHC 33.9 RDW 16.5 H Plt Count 153 L MPV 10.8 Absolute Nucleated RBC 0.000 Nucleated RBC % (auto) 0.0 Anion Gap 15 Estim Creat Clear Calc 13.2 Estimated GFR 13 POC Glucose 222 H Random Glucose 139 H Calcium 7.8 L Blood Type Antibody Screen Crossmatch 08/07/22 08/07/22 06:50 07:23 MCV MCH MCHC RDW Plt Count MPV Absolute Nucleated RBC Nucleated RBC % (auto) Anion Gap Estim Creat Clear Calc Estimated GFR POC Glucose 152 H Random Glucose Calcium Blood Type O Positive Antibody Screen NEGATIVE Crossmatch Microbiology Microbiology Results: Microbiology 08/01/22 08:08 Blood Culture - Final Blood - Venous No growth after 5 days. 08/01/22 08:08 Blood Culture - Final Blood - Venous No growth after 5 days. Assessment and Plan (1) Cao catheter problem: Status: Acute (2) Hematuria: Status: Acute (3) Bladder mass: Status: Acute (4) Anemia: Status: Acute Plan 81-year-old male with past medical history of acute osteomyelitis recently discharged from the hospital on 6 weeks of ertapenem, as well as peripheral vascular disease status post SFA atherectomy earlier this month, was to be on Plavix and aspirin for 6 months presents to the hospital with gross hematuria, as well as positive stool occult Acute on chronic anemia secondary to acute blood loss from hematuria and GI bleed s/p 6 units PRBC today 8.5/.1 Acute gross hematuria in the setting of history of bladder mass as noted in his EMR - per primary urologist at [facility] called to update her that mass was malignant recently started on Plavix and aspirin for SFA atherectomy Plavix, aspirin on hold s/p 6 units PRBC seen by urology> cysto today Acute GI bleed has positive stool occult. started on pantoprazole IV b.i.d. seen by GI - s/p EGD 08/02 with mild gastric erythema and non-bleeding AVMs, no bleeding seen in the UGI- anemia thought r/t to persistent hematuria DEON on CKD3 secondary to obstructive uropathy and renal hypoperfusion baseline of around 2, SCr still around 3 r/t obstructive uropathy/urinary retention s/p IV fluids seen by nephrology - rec to start sodium bicarb f/c, CBI follow BMP urinary retention status post Cao catheter in place seen by urology - rec outpatient cystoscopy, started on finasteride, doxazosin thrombocytopenia dilutional follow CBC toxic metabolic encephalopathy related to DEON hypotension. Resolved asymptomatic likely r/t bleeding, no sepsis improved with blood transfusion metoprolol on hold recent acute osteomyelitis wound cultures showed MSSA plus strep viridan ertapenem x6 weeks since 07/16 (end date 08/30) will switch to meropenem inpatient local wound care followed by vascular outpatient, recent procedure done as above, possible amputation if no improvement diabetes continue sliding scale insulin, hold oral antihyperglycemics DVT prophylaxis: SCDs attending - dr. Mcarthur Patient requires ongoing inpatient hospitalization for management of persistent hematuria, blood pressure monitoring Time Spent With Patient Time: Total time managing care of this patient today ____ minutes. Quality Stroke Does the patient have a stroke diagnosis?: No VTE Prior VTE?: No VTE Risk Level:: Medical - moderate - high VTE Device Contraindication: N/A - Device Ordered VTE Drug Contraindication: Treatment Not Indicated
--- NOTE | 2022-08-07 10:04 | W.PM.OPN ---
Operative Note Operative Note Date of Service: 08/07/22 Narrative: PREOP DIAGNOSIS: GROSS HEMATURIA POSTOP DIAGNOSIS: GROSS HEMATURIA PROCEDURE: CYSTOSCOPY EVACUATION BLADDER CLOTS, Fulguration, bladder biopsy SURGEON: George Youngblood MD ANESTHESIA: General Indications: Jacques is an 81 year old male with gross hematuria, has received transfusions due to anemia. Details of procedure: The patient was brought into the operating room placed on the OR table in supine position. Antibiotics - IV Ancef. General anesthesia was administered. The patient was repositioned into lithotomy position, prepped and draped in the usual sterile fashion. Time-out was done per protocol. The 24 fr resectoscope was passed under direct visualization. The bulbous urethra was within normal limits. The prostatic urethra was non obstructive. Visualization of the bladder filled with clot. The [employer] evacuator was used to irrigate out significant clot over 1 liter of clot irrigated out of blader. Findings: bleeding noted at the bladder neck and from irregular bladder lesion right lateral wall near bladder neck, biopsy obtained and area fulgurated. There was stil some oozing of blood remaining after attempts to obtain hemostasis. A [address] catheter 30 cc balloon was passed without difficulty. CBI was started in the OR with normal saline. The patient was brought out of anesthesia and taken to recovery in stable condition. Complications: None Drains: [address] loya
[2022-08-07 10:29] LABS: INTERNATIONAL NORM RATIO 1.1 (0.9-1.1); Prothrombin Time 12.7 SEC (10.0-13.1)
[2022-08-07 11:21] LABS: Glucose, Whole Blood 171 mg/dL (60-115)
[2022-08-07] MEDS: Finasteride 5 MG TABLET PO (13:12)
[2022-08-07] MEDS: Insulin Lispro 100 UNIT/ML 3 ML VIAL SUBCUT ×3 (13:13→21:28)
[2022-08-07] MEDS: Nystatin Powder 15 GM BOTTLE 1 APPL TOPICAL ×2 (13:13→21:34)
[2022-08-07 16:03] LABS: Glucose, Whole Blood 177 mg/dL (60-115)
[2022-08-07] MEDS: 0.9 % Sodium Chloride Flush 3 ML SYRINGE IVFLUSH (19:31)
[2022-08-07 20:13] LABS: Glucose, Whole Blood 196 mg/dL (60-115)
[2022-08-07] MEDS: Atorvastatin Calcium 20 MG TABLET PO (21:28)
[2022-08-07] MEDS: Doxazosin Mesylate 2 MG TABLET 4 MG PO (21:28)
[2022-08-07] MEDS: Sodium Bicarbonate 650 MG TABLET PO (21:28)
[2022-08-08] VITALS (7 sets, daily range): BP systolic 101–122; BP diastolic 57–59; PULSE 83–103; RESP 16–18; TEMP 36–36.4; O2SAT 94–100
[2022-08-08 05:57] LABS: MANUAL DIFF FLAG NO
[2022-08-08 06:21] LABS: Basophils Percent Auto 0.3 % (0-2); Eosinophils Absolute Auto 0.1 X10*3/uL (0.0-0.4); Eosinophils Percent Auto 0.9 % (0-4); Hematocrit 27.3 % (42.0-52.0); Hemoglobin 9.4 g/dl (14.0-18.0); Imm Gran Abs Auto 0.12 X10*3/uL (0.00-0.03); Lymphocytes Absolute Auto 0.6 X10*3/uL (1.2-4.9); Mean Corpuscular HGB Conc 34.4 g/dl (31.0-36.0); Mean Corpuscular Hemoglobin 31.9 pg (27.0-33.0); Mean Corpuscular Volume 92.5 fL (80.0-98.0); Mean Platelet Volume 10.8 fL (9.4-12.4); Monocytes Absolute Auto 0.6 X10*3/uL (0.1-1.2); Monocytes Percent Auto 5.4 % (2-11); Neutrophils Absolute Auto 10.1 x10*3/uL (2.0-8.3); Neutrophils Percent Auto 87.4 % (45-73); Platelet Count 163 X10*3/uL (160-400); Red Blood Count 2.95 X10*6/uL (4.60-5.80); Red Cell Distribution Width 16.7 % (11.0-16.0); White Blood Count 11.6 X10*3/uL (4.8-10.8)
[2022-08-08 06:22] LABS: Anion Gap 15 (12-20); Blood Urea Nitrogen 61 mg/dL (9-16); Calcium 7.8 mg/dL (8.4-10.2); Carbon Dioxide 17 mmol/L (22-29); Chloride 108 mmol/L (96-108); Creatinine Clr Calc Pharmacy 14.6; Estimated Glomerular Filt Rate 14; Glucose Random 132 mg/dL (60-115); Potassium 4.4 mmol/L (3.3-5.1); Sodium 136 mmol/L (135-145)
[2022-08-08 07:57] LABS: Glucose, Whole Blood 129 mg/dL (60-115)
[2022-08-08] MEDS: Finasteride 5 MG TABLET PO (08:57)
[2022-08-08] MEDS: Cholecalciferol (Vitamin D3) 25 MCG TABLET 50 MCG PO (08:57)
[2022-08-08] MEDS: Empagliflozin 10 MG TABLET PO (08:57)
[2022-08-08] MEDS: Docusate Sodium 100 MG CAPSULE PO (08:57)
[2022-08-08] MEDS: Sodium Bicarbonate 650 MG TABLET PO ×3 (08:58→20:56)
[2022-08-08] MEDS: 0.9 % Sodium Chloride Flush 3 ML SYRINGE IVFLUSH ×2 (08:58→16:44)
[2022-08-08] MEDS: Nystatin Powder 15 GM BOTTLE 1 APPL TOPICAL ×2 (08:58→21:00)
--- NOTE | 2022-08-08 09:58 | P.PNNP_ITS ---
Subjective Subjective Date of Service: 08/08/22 Interval history: seen and examined feels better sitting out of bed Physical Exam Vital Signs: Vital Signs: Last Vital Signs Temp 97.5 F 08/08/22 07:34 Pulse 97 08/08/22 08:58 Resp 18 08/08/22 07:34 BP 111/59 L 08/08/22 08:58 Pulse Ox 94 08/08/22 08:58 O2 Del Method Room Air 08/08/22 07:34 O2 Flow Rate 1.5 08/07/22 10:30 BMI result Body Mass Index 26.2 Const: General: alert and awake HEENT: Head: Yes normocephalic and Yes atraumatic Neck: Neck: Yes supple Resp: Effort & Inspection: normal respiratory effort Cardio: Heart sounds: S1 normal heart sound present and S2 normal heart sound present GI: Palpation (GI): Soft to palpation and nontender Extrem: Right upper extremity: no edema Objective Data Labs 08/08/22 05:23 08/08/22 05:23 Labs: Laboratory Results - last 24 hr 08/07/22 08/07/22 08/07/22 07:23 10:03 11:12 WBC RBC Hgb Hct MCV MCH MCHC RDW Plt Count MPV Immature Gran % (Auto) Neut % (Auto) Lymph % (Auto) [place] % (Auto) Eos % (Auto) Baso % (Auto) Lymph # (Auto) [place] # (Auto) Eos # (Auto) Baso # (Auto) Abs Immat Gran (auto) Absolute Neuts (auto) Absolute Nucleated RBC Nucleated RBC % (auto) PT 12.7 INR 1.1 APTT 27.0 Sodium Potassium Chloride Carbon Dioxide Anion Gap BUN Creatinine Estim Creat Clear Calc Estimated GFR POC Glucose 171 H Random Glucose Calcium Blood Type O Positive Antibody Screen NEGATIVE Crossmatch See Detail 08/07/22 08/07/22 08/08/22 16:00 20:07 05:23 WBC 11.6 H RBC 2.95 L Hgb 9.4 L Hct 27.3 L MCV 92.5 MCH 31.9 MCHC 34.4 RDW 16.7 H Plt Count 163 MPV 10.8 Immature Gran % (Auto) 1.0 H Neut % (Auto) 87.4 H Lymph % (Auto) 5.0 L [place] % (Auto) 5.4 Eos % (Auto) 0.9 Baso % (Auto) 0.3 Lymph # (Auto) 0.6 L [place] # (Auto) 0.6 Eos # (Auto) 0.1 Baso # (Auto) 0.0 Abs Immat Gran (auto) 0.12 H Absolute Neuts (auto) 10.1 H Absolute Nucleated RBC 0.000 Nucleated RBC % (auto) 0.0 PT INR APTT Sodium Potassium Chloride Carbon Dioxide Anion Gap BUN Creatinine Estim Creat Clear Calc Estimated GFR POC Glucose 177 H 196 H Random Glucose Calcium Blood Type Antibody Screen Crossmatch 08/08/22 08/08/22 05:23 07:36 WBC RBC Hgb Hct MCV MCH MCHC RDW Plt Count MPV Immature Gran % (Auto) Neut % (Auto) Lymph % (Auto) [place] % (Auto) Eos % (Auto) Baso % (Auto) Lymph # (Auto) [place] # (Auto) Eos # (Auto) Baso # (Auto) Abs Immat Gran (auto) Absolute Neuts (auto) Absolute Nucleated RBC Nucleated RBC % (auto) PT INR APTT Sodium 136 Potassium 4.4 Chloride 108 Carbon Dioxide 17 L Anion Gap 15 BUN 61 H Creatinine 4.01 H* Estim Creat Clear Calc 14.6 Estimated GFR 14 POC Glucose 129 H Random Glucose 132 H Calcium 7.8 L Blood Type Antibody Screen Crossmatch Microbiology Microbiology Results: Microbiology 08/01/22 08:08 Blood - Venous Blood Culture - Final No growth after 5 days. 08/01/22 08:08 Blood - Venous Blood Culture - Final No growth after 5 days. 08/01/22 Unknown Urine Catheterized - Straight Catheter Urine Culture - Final No growth. Procedures Date of Service Date of Service: 08/08/22 Assessment & Plan Assessment and plan (1) DEON (acute kidney injury): Status: Resolved (2) CKD (chronic kidney disease) stage 3, GFR 30-59 ml/min: Status: Acute Plan kidney function marginally better s/p cystoscopy with evacuation of blood clots and bladder biopsy CT scan showed ?left hydronephrosis and UPJ obstruction, left renal stone and question focal bladder wall thickening along the dome and right lateral bladder wall ? DEON due to: -obstructive uropathy -renal hypoperfusion renal US showed previously b/l hydronephrosis known CKD baseline Scr ~ 2 mg/dl REC CBI follow kidney function and electrolytes Time Spent With Patient Time: Total time managing care of this patient today ____ minutes. Progress Note: Quality Stroke Does the patient have a stroke diagnosis?: No
[2022-08-08 11:51] LABS: Glucose, Whole Blood 261 mg/dL (60-115)
[2022-08-08] MEDS: Insulin Lispro 100 UNIT/ML 3 ML VIAL SUBCUT ×3 (11:51→20:57)
--- NOTE | 2022-08-08 12:02 | HO.POSTANES ---
Post Anesthesia Evaluation Post Anesthesia Evaluation Date of Service: 08/08/22 Vital Signs: Vital Signs Temp Pulse Resp BP Pulse Ox O2 Del Method 08/08/22 09:16 94 Room Air 08/08/22 08:58 97 111/59 L 94 08/08/22 07:34 97.5 F 97 18 111/59 L 94 Room Air 08/08/22 03:42 97.6 F 93 18 122/57 L 96 Room Air Anesthesia: General Mental Status: Awake Pain Control: Satisfactory Nausea/Vomiting: None Hydration: Adequate Anesthesia-Related Issues: No Anes. Related Issues
--- NOTE | 2022-08-08 12:48 | MHC.CM.PN ---
pt seen by physical therapy who recoemends str pt does not want str want sto go home with physical therapy
--- NOTE | 2022-08-08 13:34 | HO.PM.IMPN ---
Subjective Subjective Date of Service: 08/08/22 Interval History: Out of bed in chair; no complaints. Tolerating CBI well Review of Systems Denies chest pain Denies shortness of breath Denies nausea vomiting diarrhea Denies fever chills Physical Exam Vital Signs: Vital Signs: Last Vital Signs Temp 97.5 F 08/08/22 07:34 Pulse 97 08/08/22 08:58 Resp 18 08/08/22 07:34 BP 111/59 L 08/08/22 08:58 Pulse Ox 94 08/08/22 09:16 O2 Del Method Room Air 08/08/22 09:16 O2 Flow Rate 1.5 08/07/22 10:30 BMI result Body Mass Index 26.2 Const: Other: Resting quietly no acute issues Resp: Other: Clear to auscultation bilaterally no rales rhonchi or wheezes Cardio: Other: No S4; positive S1-S2; no S3 murmurs rubs or gallops GI: Other: Soft nontender normoactive bowel sounds x4 quadrants : Other: Cao in place; cranberry colored urine in bag Extrem: Other: No edema bilaterally Objective Data Active Medications Acetaminophen (Acetaminophen 325 Mg Tablet) 650 mg PO Q6H PRN PRN Reason: Pain, Mild (Pain Scale 1-3) Last Admin: 08/06/22 23:28 Dose: 650 mg Documented By: TAD Atorvastatin Calcium (Atorvastatin Calcium 20 Mg Tablet) 20 mg PO BEDTIME [facility] Last Admin: 08/07/22 21:28 Dose: 20 mg Documented By: CAPRICE Docusate Sodium (Docusate Sodium 100 Mg Capsule) 100 mg PO DAILY [facility] Last Admin: 08/08/22 08:57 Dose: 100 mg Documented By: HERNÁN Doxazosin Mesylate (Doxazosin Mesylate 2 Mg Tablet) 4 mg PO BEDTIME [facility]; Protocol Last Admin: 08/07/22 21:28 Dose: 4 mg Documented By: CAPRICE Empagliflozin (Empagliflozin 10 Mg Tablet) 10 mg PO DAILY [facility] Last Admin: 08/08/22 08:57 Dose: 10 mg Documented By: HERNÁN Fentanyl (Fentanyl Citrate/Pf 100 Mcg/2 Ml Vial) 25 mcg IVPUSH Q5M PRN; Protocol PRN Reason: Pain, Moderate(Pain Scale 4-6) Finasteride (Finasteride 5 Mg Tablet) 5 mg PO DAILY [facility] Last Admin: 08/08/22 08:57 Dose: 5 mg Documented By: HERNÁN Glucose (Glucose Gel 15 Gm Gel..Gram.) 15 gm PO Q15M PRN; Protocol PRN Reason: per Hypoglycemia Standing Ord. Glucose (Glucose Gel 15 Gm Gel..Gram.) 15 gm PO Q15M PRN; Protocol PRN Reason: per Hypoglycemia Standing Ord. Dextrose (D10) 250 mls @ 750 mls/hr IV Q15M PRN; Protocol PRN Reason: per Hypoglycemia Standing Ord. Dextrose (D10) 250 mls @ 750 mls/hr IV Q15M PRN; Protocol PRN Reason: per Hypoglycemia Standing Ord. Meropenem 500 mg/ Sodium (Chloride) 50 mls @ 100 mls/hr IV Q12H [facility] Last Infusion: 08/08/22 01:34 Dose: 0 mls/hr Documented By: CAPRICE Insulin Human Lispro (Insulin Lispro 100 Unit/Ml 3 Ml Vial) 0 unit SUBCUT QIDACHS [facility]; Protocol Last Admin: 08/08/22 11:51 Dose: 6 unit Documented By: HERNÁN Metoprolol Tartrate (Metoprolol Tartrate 12.5 Mg Halftab) 12.5 mg PO BID [facility]; Protocol Last Admin: 08/04/22 07:51 Dose: 12.5 mg Documented By: GUILLERMO Nystatin (Nystatin Powder 15 Gm Bottle) 1 appl TOPICAL BID [facility]; Protocol Last Admin: 08/08/22 08:58 Dose: 1 appl Documented By: HERNÁN Ondansetron HCl (Ondansetron Hcl 4 Mg/2 Ml Vial) 4 mg IVPUSH Q8H PRN PRN Reason: Nausea and Vomiting Pharmacy Consult (Consult Rx Perform Med Rec) 1 each MISCELLANE ONCE PRN PRN Reason: Consult order Polyethylene Glycol (Polyethylene Glycol 3350 17 Gm Powd.Pack) 17 gm PO DAILY PRN PRN Reason: Constipation Sodium Bicarbonate (Sodium Bicarbonate 650 Mg Tablet) 650 mg PO BID [facility] Last Admin: 08/08/22 08:58 Dose: 650 mg Documented By: HERNÁN Sodium Chloride (0.9 % Sodium Chloride Flush 3 Ml Syringe) 3 ml IVFLUSH QSHIFT [facility] Last Admin: 08/08/22 08:58 Dose: 3 ml Documented By: HERNÁN Sodium Chloride (Sodium Chloride 0.65 % Nasal 44 Ml Sprbtl) 1 spray NOSTRIL-B Q1H PRN PRN Reason: Dry Nasal Passages Vitamin D (Cholecalciferol (Vitamin D3) 25 Mcg Tablet) 50 mcg PO DAILY [facility] Last Admin: 08/08/22 08:57 Dose: 50 mcg Documented By: HERNÁN Labs 08/08/22 05:23 08/08/22 05:23 Labs: Laboratory Results - last 24 hr 08/07/22 08/07/22 08/07/22 07:23 16:00 20:07 MCV MCH MCHC RDW Plt Count MPV Immature Gran % (Auto) Neut % (Auto) Lymph % (Auto) [place] % (Auto) Eos % (Auto) Baso % (Auto) Lymph # (Auto) [place] # (Auto) Eos # (Auto) Baso # (Auto) Abs Immat Gran (auto) Absolute Neuts (auto) Absolute Nucleated RBC Nucleated RBC % (auto) Anion Gap Estim Creat Clear Calc Estimated GFR POC Glucose 177 H 196 H Random Glucose Calcium Blood Type O Positive Antibody Screen NEGATIVE Crossmatch See Detail 08/08/22 08/08/22 08/08/22 05:23 05:23 07:36 MCV 92.5 MCH 31.9 MCHC 34.4 RDW 16.7 H Plt Count 163 MPV 10.8 Immature Gran % (Auto) 1.0 H Neut % (Auto) 87.4 H Lymph % (Auto) 5.0 L [place] % (Auto) 5.4 Eos % (Auto) 0.9 Baso % (Auto) 0.3 Lymph # (Auto) 0.6 L [place] # (Auto) 0.6 Eos # (Auto) 0.1 Baso # (Auto) 0.0 Abs Immat Gran (auto) 0.12 H Absolute Neuts (auto) 10.1 H Absolute Nucleated RBC 0.000 Nucleated RBC % (auto) 0.0 Anion Gap 15 Estim Creat Clear Calc 14.6 Estimated GFR 14 POC Glucose 129 H Random Glucose 132 H Calcium 7.8 L Blood Type Antibody Screen Crossmatch 08/08/22 11:46 MCV MCH MCHC RDW Plt Count MPV Immature Gran % (Auto) Neut % (Auto) Lymph % (Auto) [place] % (Auto) Eos % (Auto) Baso % (Auto) Lymph # (Auto) [place] # (Auto) Eos # (Auto) Baso # (Auto) Abs Immat Gran (auto) Absolute Neuts (auto) Absolute Nucleated RBC Nucleated RBC % (auto) Anion Gap Estim Creat Clear Calc Estimated GFR POC Glucose 261 H Random Glucose Calcium Blood Type Antibody Screen Crossmatch Assessment and Plan (1) Hematuria: Status: Acute (2) Acute GI bleeding: Status: Acute (3) Acute kidney injury superimposed on CKD: Status: Acute (4) Acute osteomyelitis: Status: Acute Plan 81-year-old male with past medical history of acute osteomyelitis recently discharged from the hospital on 6 weeks of ertapenem, as well as peripheral vascular disease status post SFA atherectomy earlier this month, was to be on Plavix and aspirin for 6 months presents to the hospital with gross hematuria, as well as positive stool occult. Upper endoscopy negative for origin of bleeding. 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 Acute GI bleed (occult positive on admission) -pantoprazole IV b.i.d. -s/p EGD 08/02 with mild gastric erythema and non-bleeding AVMs, no bleeding seen in the UGI- anemia thought r/t to persistent hematuria 3.DEON on CKD3 -minimal change in creatinine over the last 24 hours -bicarb 17; will increase bicarb to t.i.d. -follow renals/Divalents 4.Acute osteomyelitis (strep viridans/MSSA)- -ertapenem x6 weeks since 07/16 (end date 08/30); meropenem inpatient -wound cares ordered 5.DMII -acceptable control on current therapies -continue sliding scale insulin (add back orals when appropriate) Boots Full code Requires ongoing hospitalization for continuous bladder irrigation until hematuria resolves Time Spent With Patient Time: Total time managing care of this patient today ____ minutes. Quality Stroke Does the patient have a stroke diagnosis?: No VTE Prior VTE?: No VTE Risk Level:: Medical - moderate - high VTE Device Contraindication: N/A - Device Ordered VTE Drug Contraindication: Treatment Not Indicated
[2022-08-08] MEDS: Acetaminophen 325 MG TABLET 650 MG PO (15:34)
[2022-08-08 16:36] LABS: Glucose, Whole Blood 252 mg/dL (60-115)
[2022-08-08 20:19] LABS: Glucose, Whole Blood 201 mg/dL (60-115)
[2022-08-08] MEDS: Atorvastatin Calcium 20 MG TABLET PO (20:57)
[2022-08-08] MEDS: Doxazosin Mesylate 2 MG TABLET 4 MG PO (20:57)
[2022-08-08] MEDS: polyethylene glycoL 3350 17 GM POWD.PACK PO (21:06)
[2022-08-09] MEDS: 0.9 % Sodium Chloride Flush 3 ML SYRINGE IVFLUSH ×4 (00:14→20:55)
[2022-08-09 04:00] VITALS: BP 114/61; PULSE 82; RESP 14; TEMP 36.6; O2SAT 96
[2022-08-09 06:02] LABS: MANUAL DIFF FLAG NO
[2022-08-09 06:10] LABS: Basophils Percent Auto 0.2 % (0-2); Eosinophils Absolute Auto 0.2 X10*3/uL (0.0-0.4); Eosinophils Percent Auto 1.7 % (0-4); Hematocrit 26.8 % (42.0-52.0); Hemoglobin 8.7 g/dl (14.0-18.0); Imm Gran Abs Auto 0.17 X10*3/uL (0.00-0.03); Imm Gran Pct Auto 1.6 % (0.0-0.4); Lymphocytes Absolute Auto 0.5 X10*3/uL (1.2-4.9); Lymphocytes Percent Auto 4.7 % (20-40); Mean Corpuscular HGB Conc 32.5 g/dl (31.0-36.0); Mean Corpuscular Hemoglobin 30.6 pg (27.0-33.0); Mean Corpuscular Volume 94.4 fL (80.0-98.0); Monocytes Absolute Auto 0.4 X10*3/uL (0.1-1.2); Monocytes Percent Auto 4.2 % (2-11); Neutrophils Percent Auto 87.6 % (45-73); Platelet Count 148 X10*3/uL (160-400); Red Blood Count 2.84 X10*6/uL (4.60-5.80); Red Cell Distribution Width 16.2 % (11.0-16.0); White Blood Count 10.3 X10*3/uL (4.8-10.8)
[2022-08-09 06:25] LABS: Alanine Aminotransferase 18 U/L (0-40); Alkaline Phosphatase 77 U/L (39-117); Anion Gap 16 (12-20); Aspartate Amino Transferase 36 U/L (5-37); Bilirubin Total 1.4 mg/dL (0.0-1.0); Blood Urea Nitrogen 60 mg/dL (9-16); Calcium 7.6 mg/dL (8.4-10.2); Carbon Dioxide 18 mmol/L (22-29); Chloride 108 mmol/L (96-108); Creatinine Clr Calc Pharmacy 15.7; Estimated Glomerular Filt Rate 16; Glucose Fasting 170 mg/dL (60-99); Phosphorus 4.6 mg/dL (2.7-4.5); Potassium 4.1 mmol/L (3.3-5.1); Sodium 138 mmol/L (135-145); Total Protein 4.3 g/dL (6.5-8.0)
[2022-08-09 07:30] VITALS: BP 110/65; PULSE 83; RESP 16; TEMP 36.5; O2SAT 94
[2022-08-09 07:44] LABS: Glucose, Whole Blood 150 mg/dL (60-115)
[2022-08-09 09:00] VITALS: BP 110/65; PULSE 83; O2SAT 94; O2SAT 97
[2022-08-09] MEDS: Sodium Bicarbonate 650 MG TABLET PO ×3 (09:49→20:55)
[2022-08-09] MEDS: Empagliflozin 10 MG TABLET PO (09:49)
[2022-08-09] MEDS: Docusate Sodium 100 MG CAPSULE PO (09:50)
[2022-08-09] MEDS: Nystatin Powder 15 GM BOTTLE 1 APPL TOPICAL ×2 (09:50→20:59)
[2022-08-09] MEDS: Cholecalciferol (Vitamin D3) 25 MCG TABLET 50 MCG PO (09:50)
[2022-08-09] MEDS: Finasteride 5 MG TABLET PO (09:50)
[2022-08-09] MEDS: Acetaminophen 325 MG TABLET 650 MG PO ×2 (09:50→20:55)
[2022-08-09 11:23] LABS: Glucose, Whole Blood 223 mg/dL (60-115)
[2022-08-09] MEDS: Insulin Lispro 100 UNIT/ML 3 ML VIAL SUBCUT ×3 (12:08→20:54)
--- NOTE | 2022-08-09 12:19 | P.PNNP_ITS ---
Subjective Subjective Date of Service: 08/09/22 Interval history: seen and examined out of bed in chair no complaints tolerating CBI well Physical Exam Vital Signs: Vital Signs: Last Vital Signs Temp 97.7 F 08/09/22 07:30 Pulse 83 08/09/22 09:00 Resp 16 08/09/22 07:30 BP 110/65 08/09/22 09:00 Pulse Ox 97 08/09/22 09:00 O2 Del Method Room Air 08/09/22 09:00 O2 Flow Rate 1.5 08/07/22 10:30 BMI result Body Mass Index 26.2 Const: General: alert and awake HEENT: Head: Yes normocephalic and Yes atraumatic Neck: Neck: Yes supple Resp: Effort & Inspection: normal respiratory effort Cardio: Heart sounds: S1 normal heart sound present and S2 normal heart sound present GI: Palpation (GI): Soft to palpation and nontender Extrem: Right upper extremity: no edema Objective Data Labs 08/09/22 05:22 08/09/22 05:22 Labs: Laboratory Results - last 24 hr 08/08/22 08/08/22 08/09/22 16:30 20:07 05:22 WBC 10.3 RBC 2.84 L Hgb 8.7 L Hct 26.8 L MCV 94.4 MCH 30.6 MCHC 32.5 RDW 16.2 H Plt Count 148 L MPV 11.0 Immature Gran % (Auto) 1.6 H Neut % (Auto) 87.6 H Lymph % (Auto) 4.7 L [place] % (Auto) 4.2 Eos % (Auto) 1.7 Baso % (Auto) 0.2 Lymph # (Auto) 0.5 L [place] # (Auto) 0.4 Eos # (Auto) 0.2 Baso # (Auto) 0.0 Abs Immat Gran (auto) 0.17 H Absolute Neuts (auto) 9.0 H Absolute Nucleated RBC 0.000 Nucleated RBC % (auto) 0.0 Sodium Potassium Chloride Carbon Dioxide Anion Gap BUN Creatinine Estim Creat Clear Calc Estimated GFR POC Glucose 252 H 201 H Fasting Glucose Calcium Phosphorus Total Bilirubin AST ALT Alkaline Phosphatase Total Protein Albumin 08/09/22 08/09/22 08/09/22 05:22 07:33 11:09 WBC RBC Hgb Hct MCV MCH MCHC RDW Plt Count MPV Immature Gran % (Auto) Neut % (Auto) Lymph % (Auto) [place] % (Auto) Eos % (Auto) Baso % (Auto) Lymph # (Auto) [place] # (Auto) Eos # (Auto) Baso # (Auto) Abs Immat Gran (auto) Absolute Neuts (auto) Absolute Nucleated RBC Nucleated RBC % (auto) Sodium 138 Potassium 4.1 Chloride 108 Carbon Dioxide 18 L Anion Gap 16 BUN 60 H Creatinine 3.74 H Estim Creat Clear Calc 15.7 Estimated GFR 16 POC Glucose 150 H 223 H Fasting Glucose 170 H Calcium 7.6 L Phosphorus 4.6 H Total Bilirubin 1.4 H AST 36 ALT 18 Alkaline Phosphatase 77 Total Protein 4.3 L Albumin 2.0 L Microbiology Microbiology Results: Microbiology 08/01/22 08:08 Blood - Venous Blood Culture - Final No growth after 5 days. 08/01/22 08:08 Blood - Venous Blood Culture - Final No growth after 5 days. 08/01/22 Unknown Urine Catheterized - Straight Catheter Urine Culture - Final No growth. Procedures Date of Service Date of Service: 08/09/22 Assessment & Plan Assessment and plan (1) DEON (acute kidney injury): Status: Resolved (2) CKD (chronic kidney disease) stage 3, GFR 30-59 ml/min: Status: Acute Plan kidney function improving s/p cystoscopy with evacuation of blood clots and bladder biopsy CT scan showed ?left hydronephrosis and UPJ obstruction, left renal stone and question focal bladder wall thickening along the dome and right lateral bladder wall ? DEON due to: -obstructive uropathy -renal hypoperfusion renal US showed previously b/l hydronephrosis known CKD baseline Scr ~ 2 mg/dl REC c/w CBI follow kidney function and electrolytes Time Spent With Patient Time: Total time managing care of this patient today ____ minutes. Progress Note: Quality Stroke Does the patient have a stroke diagnosis?: No
--- NOTE | 2022-08-09 13:42 | P.PNIM_ITS ---
Subjective Subjective Date of Service: 08/09/22 Interval History: Up in chair voices no complaints. Review of Systems Denies chest pain Denies shortness of breath Denies nausea vomiting diarrhea Denies fever chills Physical Exam Vital Signs: Vital Signs: Last Vital Signs Temp 97.7 F 08/09/22 07:30 Pulse 83 08/09/22 09:00 Resp 16 08/09/22 07:30 BP 110/65 08/09/22 09:00 Pulse Ox 97 08/09/22 09:00 O2 Del Method Room Air 08/09/22 09:00 O2 Flow Rate 1.5 08/07/22 10:30 BMI result Body Mass Index 26.2 Const: Other: Resting quietly no acute issues Resp: Other: Clear to auscultation bilaterally no rales rhonchi or wheezes Cardio: Other: No S4; positive S1-S2; no S3 murmurs rubs or gallops GI: Other: Soft nontender normoactive bowel sounds x4 quadrants : Other: Cao in place; cranberry colored urine in bag Extrem: Other: No edema bilaterally Objective Data Active Medications Acetaminophen (Acetaminophen 325 Mg Tablet) 650 mg PO Q6H PRN PRN Reason: Pain, Mild (Pain Scale 1-3) Last Admin: 08/09/22 09:50 Dose: 650 mg Documented By: ROLAND Atorvastatin Calcium (Atorvastatin Calcium 20 Mg Tablet) 20 mg PO BEDTIME [facility] Last Admin: 08/08/22 20:57 Dose: 20 mg Documented By: MCKINLEY Docusate Sodium (Docusate Sodium 100 Mg Capsule) 100 mg PO DAILY [facility] Last Admin: 08/09/22 09:50 Dose: 100 mg Documented By: ROLAND Doxazosin Mesylate (Doxazosin Mesylate 2 Mg Tablet) 4 mg PO BEDTIME [facility]; Protocol Last Admin: 08/08/22 20:57 Dose: 4 mg Documented By: MCKINLEY Empagliflozin (Empagliflozin 10 Mg Tablet) 10 mg PO DAILY [facility] Last Admin: 08/09/22 09:49 Dose: 10 mg Documented By: ROLAND Fentanyl (Fentanyl Citrate/Pf 100 Mcg/2 Ml Vial) 25 mcg IVPUSH Q5M PRN; Protocol PRN Reason: Pain, Moderate(Pain Scale 4-6) Finasteride (Finasteride 5 Mg Tablet) 5 mg PO DAILY [facility] Last Admin: 08/09/22 09:50 Dose: 5 mg Documented By: ROLAND Glucose (Glucose Gel 15 Gm Gel..Gram.) 15 gm PO Q15M PRN; Protocol PRN Reason: per Hypoglycemia Standing Ord. Glucose (Glucose Gel 15 Gm Gel..Gram.) 15 gm PO Q15M PRN; Protocol PRN Reason: per Hypoglycemia Standing Ord. Dextrose (D10) 250 mls @ 750 mls/hr IV Q15M PRN; Protocol PRN Reason: per Hypoglycemia Standing Ord. Dextrose (D10) 250 mls @ 750 mls/hr IV Q15M PRN; Protocol PRN Reason: per Hypoglycemia Standing Ord. Meropenem 500 mg/ Sodium (Chloride) 50 mls @ 100 mls/hr IV Q12H [facility] Last Infusion: 08/09/22 12:51 Dose: 0 mls/hr Documented By: ROLAND Insulin Human Lispro (Insulin Lispro 100 Unit/Ml 3 Ml Vial) 0 unit SUBCUT QIDACHS [facility]; Protocol Last Admin: 08/09/22 12:08 Dose: 4 unit Documented By: ROLAND Metoprolol Tartrate (Metoprolol Tartrate 12.5 Mg Halftab) 12.5 mg PO BID [facility]; Protocol Last Admin: 08/04/22 07:51 Dose: 12.5 mg Documented By: GUILLERMO Nystatin (Nystatin Powder 15 Gm Bottle) 1 appl TOPICAL BID [facility]; Protocol Last Admin: 08/09/22 09:50 Dose: 1 appl Documented By: ROLAND Ondansetron HCl (Ondansetron Hcl 4 Mg/2 Ml Vial) 4 mg IVPUSH Q8H PRN PRN Reason: Nausea and Vomiting Pharmacy Consult (Consult Rx Perform Med Rec) 1 each MISCELLANE ONCE PRN PRN Reason: Consult order Polyethylene Glycol (Polyethylene Glycol 3350 17 Gm Powd.Pack) 17 gm PO DAILY PRN PRN Reason: Constipation Last Admin: 08/08/22 21:06 Dose: 17 gm Documented By: MCKINLEY Sodium Bicarbonate (Sodium Bicarbonate 650 Mg Tablet) 650 mg PO TID [facility] Last Admin: 08/09/22 09:49 Dose: 650 mg Documented By: ROLAND Sodium Chloride (0.9 % Sodium Chloride Flush 3 Ml Syringe) 3 ml IVFLUSH QSHIFT [facility] Last Admin: 08/09/22 09:50 Dose: 3 ml Documented By: ROLAND Sodium Chloride (Sodium Chloride 0.65 % Nasal 44 Ml Sprbtl) 1 spray NOSTRIL-B Q1H PRN PRN Reason: Dry Nasal Passages Vitamin D (Cholecalciferol (Vitamin D3) 25 Mcg Tablet) 50 mcg PO DAILY [facility] Last Admin: 08/09/22 09:50 Dose: 50 mcg Documented By: ROLAND Labs 08/09/22 05:22 08/09/22 05:22 Labs: Laboratory Results - last 24 hr 08/08/22 08/08/22 08/09/22 16:30 20:07 05:22 MCV 94.4 MCH 30.6 MCHC 32.5 RDW 16.2 H Plt Count 148 L MPV 11.0 Immature Gran % (Auto) 1.6 H Neut % (Auto) 87.6 H Lymph % (Auto) 4.7 L [place] % (Auto) 4.2 Eos % (Auto) 1.7 Baso % (Auto) 0.2 Lymph # (Auto) 0.5 L [place] # (Auto) 0.4 Eos # (Auto) 0.2 Baso # (Auto) 0.0 Abs Immat Gran (auto) 0.17 H Absolute Neuts (auto) 9.0 H Absolute Nucleated RBC 0.000 Nucleated RBC % (auto) 0.0 Anion Gap Estim Creat Clear Calc Estimated GFR POC Glucose 252 H 201 H Fasting Glucose Calcium Phosphorus Total Bilirubin AST ALT Alkaline Phosphatase Total Protein Albumin 08/09/22 08/09/22 08/09/22 05:22 07:33 11:09 MCV MCH MCHC RDW Plt Count MPV Immature Gran % (Auto) Neut % (Auto) Lymph % (Auto) [place] % (Auto) Eos % (Auto) Baso % (Auto) Lymph # (Auto) [place] # (Auto) Eos # (Auto) Baso # (Auto) Abs Immat Gran (auto) Absolute Neuts (auto) Absolute Nucleated RBC Nucleated RBC % (auto) Anion Gap 16 Estim Creat Clear Calc 15.7 Estimated GFR 16 POC Glucose 150 H 223 H Fasting Glucose 170 H Calcium 7.6 L Phosphorus 4.6 H Total Bilirubin 1.4 H AST 36 ALT 18 Alkaline Phosphatase 77 Total Protein 4.3 L Albumin 2.0 L Assessment and Plan (1) Hematuria: Status: Acute (2) Acute kidney injury superimposed on CKD: Status: Acute (3) Acute osteomyelitis: Status: Acute Plan 81-year-old male with past medical history of acute osteomyelitis recently discharged from the hospital on 6 weeks of ertapenem, as well as peripheral vascular disease status post SFA atherectomy earlier this month, was to be on Plavix and aspirin for 6 months presents to the hospital with gross hematuria, as well as positive stool occult. Upper endoscopy negative for origin of bleeding. 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 Acute GI bleed (occult positive on admission) -omeprazole po -s/p EGD 08/02 with mild gastric erythema and non-bleeding AVMs, no bleeding seen in the UGI- anemia thought r/t to persistent hematuria 3.DEON on CKD3 -minimal change in creatinine over the last 24 hours -bicarb essentially unchanged with t.i.d. dosing -follow renals/Divalents 4.Acute osteomyelitis (strep viridans/MSSA)- -ertapenem x6 weeks since 07/16 (end date 08/30); meropenem inpatient -wound cares ordered 5.DMII -acceptable control on current therapies -continue sliding scale insulin (add back orals when appropriate) Boots Full code Requires ongoing hospitalization for continuous bladder irrigation until he maturia resolves. Physical therapy strongly recommending rehab however patient continues to decline. Will discuss with later this afternoon Time Spent With Patient Time: Total time managing care of this patient today ____ minutes. Quality Stroke Does the patient have a stroke diagnosis?: No VTE Prior VTE?: No VTE Risk Level:: Medical - moderate - high VTE Device Contraindication: N/A - Device Ordered VTE Drug Contraindication: Treatment Not Indicated
[2022-08-09 14:00] VITALS: O2SAT 96
[2022-08-09 15:18] VITALS: BP 113/57; PULSE 95; RESP 18; TEMP 36; O2SAT 97
[2022-08-09 16:07] LABS: Glucose, Whole Blood 204 mg/dL (60-115)
[2022-08-09 19:20] VITALS: BP 127/57; PULSE 92; RESP 18; TEMP 36; O2SAT 98
[2022-08-09 20:24] LABS: Glucose, Whole Blood 187 mg/dL (60-115)
[2022-08-09] MEDS: Doxazosin Mesylate 2 MG TABLET 4 MG PO (20:55)
[2022-08-09] MEDS: Atorvastatin Calcium 20 MG TABLET PO (20:55)
[2022-08-10] VITALS (7 sets, daily range): BP systolic 101–134; BP diastolic 56–60; PULSE 77–112; RESP 16–20; TEMP 36.2–36.6; O2SAT 93–97
[2022-08-10] MEDS: Omeprazole 40 MG CAPSULE.DR PO (05:24)
[2022-08-10 06:40] LABS: MANUAL DIFF FLAG NO
[2022-08-10 06:41] LABS: Basophils Percent Auto 0.3 % (0-2); Eosinophils Absolute Auto 0.3 X10*3/uL (0.0-0.4); Eosinophils Percent Auto 3.1 % (0-4); Hematocrit 26.2 % (42.0-52.0); Hemoglobin 8.8 g/dl (14.0-18.0); Imm Gran Abs Auto 0.14 X10*3/uL (0.00-0.03); Imm Gran Pct Auto 1.5 % (0.0-0.4); Lymphocytes Absolute Auto 0.7 X10*3/uL (1.2-4.9); Lymphocytes Percent Auto 7.4 % (20-40); Mean Corpuscular HGB Conc 33.6 g/dl (31.0-36.0); Mean Corpuscular Hemoglobin 31.5 pg (27.0-33.0); Mean Corpuscular Volume 93.9 fL (80.0-98.0); Mean Platelet Volume 10.6 fL (9.4-12.4); Monocytes Absolute Auto 0.5 X10*3/uL (0.1-1.2); Monocytes Percent Auto 5.4 % (2-11); Neutrophils Absolute Auto 7.7 x10*3/uL (2.0-8.3); Neutrophils Percent Auto 82.3 % (45-73); Platelet Count 165 X10*3/uL (160-400); Red Blood Count 2.79 X10*6/uL (4.60-5.80); Red Cell Distribution Width 16.4 % (11.0-16.0); White Blood Count 9.4 X10*3/uL (4.8-10.8)
[2022-08-10 07:25] LABS: Alanine Aminotransferase 18 U/L (0-40); Albumin Level 2.1 g/dL (3.5-5.0); Alkaline Phosphatase 84 U/L (39-117); Anion Gap 14 (12-20); Aspartate Amino Transferase 30 U/L (5-37); Bilirubin Total 1.2 mg/dL (0.0-1.0); Blood Urea Nitrogen 60 mg/dL (9-16); Calcium 7.9 mg/dL (8.4-10.2); Carbon Dioxide 21 mmol/L (22-29); Chloride 108 mmol/L (96-108); Creatinine Clr Calc Pharmacy 17.4; Estimated Glomerular Filt Rate 18; Glucose Fasting 117 mg/dL (60-99); Potassium 4.1 mmol/L (3.3-5.1); Sodium 139 mmol/L (135-145); Total Protein 4.4 g/dL (6.5-8.0)
[2022-08-10 08:06] LABS: Glucose, Whole Blood 137 mg/dL (60-115)
--- NOTE | 2022-08-10 09:00 | MHC.CM.PN ---
Addendum entered by Laurie Grigsby 08/12/22 08:37: [facility] HAS [facility] ACCEPTED PT PENDING INSURANCE AUTH PATEL AGUERO IS FOLLOWING PTS INSURANCE COMPANY WILL NOT BE OPEN TO PROVIDE INSURANCE AUTH PRIOR TO Saturday08/14/22 Addendum entered by Laurie Grigsby 08/11/22 14:05: [facility] IS NOT CONTRACTED WITH [facility]TS INSURANCE REFERRAL EXPANDED Original Note: PER PT, PT WILL NEED STR HOWEVER PT IS RELUCTANT AT THIS TIME, PT REPORTS HE WILL CONSIDER STR IF HE IS ABLE TO GO TO [facility] REFERRAL MADE
[2022-08-10] MEDS: Sodium Bicarbonate 650 MG TABLET PO ×3 (09:03→22:28)
[2022-08-10] MEDS: Empagliflozin 10 MG TABLET PO (09:03)
[2022-08-10] MEDS: Cholecalciferol (Vitamin D3) 25 MCG TABLET 50 MCG PO (09:03)
[2022-08-10] MEDS: Finasteride 5 MG TABLET PO (09:03)
[2022-08-10] MEDS: Docusate Sodium 100 MG CAPSULE PO (09:03)
[2022-08-10] MEDS: 0.9 % Sodium Chloride Flush 3 ML SYRINGE IVFLUSH ×3 (09:04→22:29)
[2022-08-10] MEDS: Nystatin Powder 15 GM BOTTLE 1 APPL TOPICAL ×2 (09:04→22:29)
[2022-08-10 11:33] LABS: Glucose, Whole Blood 215 mg/dL (60-115)
[2022-08-10] MEDS: Insulin Lispro 100 UNIT/ML 3 ML VIAL SUBCUT ×3 (11:53→22:28)
--- NOTE | 2022-08-10 13:42 | HO.PM.IMPN ---
Subjective Subjective Date of Service: 08/10/22 Interval History: Uneventful night. No further hematuria. Continues to decline short-term rehab Review of Systems Denies chest pain Denies shortness of breath Denies nausea vomiting diarrhea Denies fever chills Physical Exam Vital Signs: Vital Signs: Last Vital Signs Temp 97.7 F 08/10/22 07:27 Pulse 77 08/10/22 07:27 Resp 18 08/10/22 07:27 BP 118/58 L 08/10/22 07:27 Pulse Ox 93 08/10/22 09:00 O2 Del Method Room Air 08/10/22 09:00 O2 Flow Rate 1.5 08/07/22 10:30 BMI result Body Mass Index 26.2 Const: Other: Resting quietly no acute issues Resp: Other: Clear to auscultation bilaterally no rales rhonchi or wheezes Cardio: Other: No S4; positive S1-S2; no S3 murmurs rubs or gallops GI: Other: Soft nontender normoactive bowel sounds x4 quadrants : Other: Cao in place; cranberry colored urine in bag Extrem: Other: No edema bilaterally Objective Data Active Medications Acetaminophen (Acetaminophen 325 Mg Tablet) 650 mg PO Q6H PRN PRN Reason: Pain, Mild (Pain Scale 1-3) Last Admin: 08/09/22 20:55 Dose: 650 mg Documented By: SARTHAK Atorvastatin Calcium (Atorvastatin Calcium 20 Mg Tablet) 20 mg PO BEDTIME [facility] Last Admin: 08/09/22 20:55 Dose: 20 mg Documented By: SARTHAK Docusate Sodium (Docusate Sodium 100 Mg Capsule) 100 mg PO DAILY [facility] Last Admin: 08/10/22 09:03 Dose: 100 mg Documented By: ROLAND Comments: valdo page Doxazosin Mesylate (Doxazosin Mesylate 2 Mg Tablet) 4 mg PO BEDTIME [facility]; Protocol Last Admin: 08/09/22 20:55 Dose: 4 mg Documented By: SARTHAK Empagliflozin (Empagliflozin 10 Mg Tablet) 10 mg PO DAILY [facility] Last Admin: 08/10/22 09:03 Dose: 10 mg Documented By: ROLAND Fentanyl (Fentanyl Citrate/Pf 100 Mcg/2 Ml Vial) 25 mcg IVPUSH Q5M PRN; Protocol PRN Reason: Pain, Moderate(Pain Scale 4-6) Finasteride (Finasteride 5 Mg Tablet) 5 mg PO DAILY [facility] Last Admin: 08/10/22 09:03 Dose: 5 mg Documented By: ROLAND Glucose (Glucose Gel 15 Gm Gel..Gram.) 15 gm PO Q15M PRN; Protocol PRN Reason: per Hypoglycemia Standing Ord. Glucose (Glucose Gel 15 Gm Gel..Gram.) 15 gm PO Q15M PRN; Protocol PRN Reason: per Hypoglycemia Standing Ord. Dextrose (D10) 250 mls @ 750 mls/hr IV Q15M PRN; Protocol PRN Reason: per Hypoglycemia Standing Ord. Dextrose (D10) 250 mls @ 750 mls/hr IV Q15M PRN; Protocol PRN Reason: per Hypoglycemia Standing Ord. Meropenem 500 mg/ Sodium (Chloride) 50 mls @ 100 mls/hr IV Q12H [facility] Last Infusion: 08/10/22 01:22 Dose: 0 mls/hr Documented By: SARTHAK Insulin Human Lispro (Insulin Lispro 100 Unit/Ml 3 Ml Vial) 0 unit SUBCUT QIDACHS [facility]; Protocol Last Admin: 08/10/22 11:53 Dose: 4 unit Documented By: ROLAND Metoprolol Tartrate (Metoprolol Tartrate 12.5 Mg Halftab) 12.5 mg PO BID [facility]; Protocol Last Admin: 08/04/22 07:51 Dose: 12.5 mg Documented By: GUILLERMO Nystatin (Nystatin Powder 15 Gm Bottle) 1 appl TOPICAL BID [facility]; Protocol Last Admin: 08/10/22 09:04 Dose: 1 appl Documented By: ROLAND Omeprazole (Omeprazole 40 Mg Capsule.) 40 mg PO DAILY@0630 [facility] Last Admin: 08/10/22 05:24 Dose: 40 mg Documented By: SARTHAK Ondansetron HCl (Ondansetron Hcl 4 Mg/2 Ml Vial) 4 mg IVPUSH Q8H PRN PRN Reason: Nausea and Vomiting Pharmacy Consult (Consult Rx Perform Med Rec) 1 each MISCELLANE ONCE PRN PRN Reason: Consult order Polyethylene Glycol (Polyethylene Glycol 3350 17 Gm Powd.Pack) 17 gm PO DAILY PRN PRN Reason: Constipation Last Admin: 08/08/22 21:06 Dose: 17 gm Documented By: MCKINLEY Sodium Bicarbonate (Sodium Bicarbonate 650 Mg Tablet) 650 mg PO TID [facility] Last Admin: 08/10/22 09:03 Dose: 650 mg Documented By: ROLAND Sodium Chloride (0.9 % Sodium Chloride Flush 3 Ml Syringe) 3 ml IVFLUSH QSHIFT [facility] Last Admin: 08/10/22 09:04 Dose: 3 ml Documented By: ROLAND Sodium Chloride (Sodium Chloride 0.65 % Nasal 44 Ml Sprbtl) 1 spray NOSTRIL-B Q1H PRN PRN Reason: Dry Nasal Passages Vitamin D (Cholecalciferol (Vitamin D3) 25 Mcg Tablet) 50 mcg PO DAILY [facility] Last Admin: 08/10/22 09:03 Dose: 50 mcg Documented By: ROLAND Labs 08/10/22 05:43 08/10/22 05:43 Labs: Laboratory Results - last 24 hr 08/09/22 08/09/22 08/10/22 16:01 20:16 05:43 MCV 93.9 MCH 31.5 MCHC 33.6 RDW 16.4 H Plt Count 165 MPV 10.6 Immature Gran % (Auto) 1.5 H Neut % (Auto) 82.3 H Lymph % (Auto) 7.4 L [place] % (Auto) 5.4 Eos % (Auto) 3.1 Baso % (Auto) 0.3 Lymph # (Auto) 0.7 L [place] # (Auto) 0.5 Eos # (Auto) 0.3 Baso # (Auto) 0.0 Abs Immat Gran (auto) 0.14 H Absolute Neuts (auto) 7.7 Absolute Nucleated RBC 0.000 Nucleated RBC % (auto) 0.0 Anion Gap Estim Creat Clear Calc Estimated GFR POC Glucose 204 H 187 H Fasting Glucose Calcium Total Bilirubin AST ALT Alkaline Phosphatase Total Protein Albumin 08/10/22 08/10/22 08/10/22 05:43 07:33 11:28 MCV MCH MCHC RDW Plt Count MPV Immature Gran % (Auto) Neut % (Auto) Lymph % (Auto) [place] % (Auto) Eos % (Auto) Baso % (Auto) Lymph # (Auto) [place] # (Auto) Eos # (Auto) Baso # (Auto) Abs Immat Gran (auto) Absolute Neuts (auto) Absolute Nucleated RBC Nucleated RBC % (auto) Anion Gap 14 Estim Creat Clear Calc 17.4 Estimated GFR 18 POC Glucose 137 H 215 H Fasting Glucose 117 H Calcium 7.9 L Total Bilirubin 1.2 H AST 30 ALT 18 Alkaline Phosphatase 84 Total Protein 4.4 L Albumin 2.1 L Assessment and Plan (1) Gross hematuria: Status: Acute (2) Acute kidney injury superimposed on CKD: Status: Acute (3) Congestive heart failure with LV diastolic dysfunction, NYHA class 3: Status: Acute Plan 81-year-old male with past medical history of acute osteomyelitis recently discharged from the hospital on 6 weeks of ertapenem, as well as peripheral vascular disease status post SFA atherectomy earlier this month, was to be on Plavix and aspirin for 6 months presents to the hospital with gross hematuria, as well as positive stool occult. Upper endoscopy negative for origin of bleeding. 1.Acute gross hematuria secondary to malignant bladder mass -hematuria resolved -discussed with Urology . .. Removed [address] way for voiding trial 2. Acute GI bleed (occult positive on admission) -omeprazole po -s/p EGD 08/02 with mild gastric erythema and non-bleeding AVMs, no bleeding seen in the UGI- anemia thought r/t to persistent hematuria 3.DEON on CKD3 -minimal change in creatinine over the last 24 hours -bicarb improving -follow renals/Divalents 4.Acute osteomyelitis (strep viridans/MSSA)- -ertapenem x6 weeks since 07/16 (end date 08/30); meropenem inpatient -wound cares ordered 5.DMII -acceptable control on current therapies -continue sliding scale insulin (add back orals when appropriate) Boots Full code Requires ongoing hospitalization for continuous bladder irrigation until hematuria resolves. Physical therapy strongly recommending rehab however patient continues to decline. Will discuss with later this afternoon Time Spent With Patient Time: Total time managing care of this patient today ____ minutes. Quality Stroke Does the patient have a stroke diagnosis?: No VTE Prior VTE?: No VTE Risk Level:: Medical - moderate - high VTE Device Contraindication: N/A - Device Ordered VTE Drug Contraindication: Treatment Not Indicated
--- NOTE | 2022-08-10 14:55 | PM.PNNEP ---
Subjective Subjective Date of Service: 08/10/22 Interval history: Seen and examined, events noted Physical Exam Vital Signs: Vital Signs: Last Vital Signs Temp 97.7 F 08/10/22 07:27 Pulse 77 08/10/22 07:27 Resp 18 08/10/22 07:27 BP 118/58 L 08/10/22 07:27 Pulse Ox 93 08/10/22 14:00 O2 Del Method Room Air 08/10/22 14:00 O2 Flow Rate 1.5 08/07/22 10:30 BMI result Body Mass Index 26.2 Const: General: alert and awake HEENT: Head: Yes normocephalic and Yes atraumatic Neck: Neck: Yes supple Resp: Effort & Inspection: normal respiratory effort Cardio: Heart sounds: S1 normal heart sound present and S2 normal heart sound present GI: Palpation (GI): Soft to palpation and nontender Extrem: Right upper extremity: no edema Objective Data Labs 08/10/22 05:43 08/10/22 05:43 Labs: Laboratory Results - last 24 hr 08/09/22 08/09/22 08/10/22 16:01 20:16 05:43 WBC 9.4 RBC 2.79 L Hgb 8.8 L Hct 26.2 L MCV 93.9 MCH 31.5 MCHC 33.6 RDW 16.4 H Plt Count 165 MPV 10.6 Immature Gran % (Auto) 1.5 H Neut % (Auto) 82.3 H Lymph % (Auto) 7.4 L [place] % (Auto) 5.4 Eos % (Auto) 3.1 Baso % (Auto) 0.3 Lymph # (Auto) 0.7 L [place] # (Auto) 0.5 Eos # (Auto) 0.3 Baso # (Auto) 0.0 Abs Immat Gran (auto) 0.14 H Absolute Neuts (auto) 7.7 Absolute Nucleated RBC 0.000 Nucleated RBC % (auto) 0.0 Sodium Potassium Chloride Carbon Dioxide Anion Gap BUN Creatinine Estim Creat Clear Calc Estimated GFR POC Glucose 204 H 187 H Fasting Glucose Calcium Total Bilirubin AST ALT Alkaline Phosphatase Total Protein Albumin 08/10/22 08/10/22 08/10/22 05:43 07:33 11:28 WBC RBC Hgb Hct MCV MCH MCHC RDW Plt Count MPV Immature Gran % (Auto) Neut % (Auto) Lymph % (Auto) [place] % (Auto) Eos % (Auto) Baso % (Auto) Lymph # (Auto) [place] # (Auto) Eos # (Auto) Baso # (Auto) Abs Immat Gran (auto) Absolute Neuts (auto) Absolute Nucleated RBC Nucleated RBC % (auto) Sodium 139 Potassium 4.1 Chloride 108 Carbon Dioxide 21 L Anion Gap 14 BUN 60 H Creatinine 3.37 H Estim Creat Clear Calc 17.4 Estimated GFR 18 POC Glucose 137 H 215 H Fasting Glucose 117 H Calcium 7.9 L Total Bilirubin 1.2 H AST 30 ALT 18 Alkaline Phosphatase 84 Total Protein 4.4 L Albumin 2.1 L Microbiology Microbiology Results: Microbiology 08/01/22 08:08 Blood - Venous Blood Culture - Final No growth after 5 days. 08/01/22 08:08 Blood - Venous Blood Culture - Final No growth after 5 days. 08/01/22 Unknown Urine Catheterized - Straight Catheter Urine Culture - Final No growth. Procedures Date of Service Date of Service: 08/10/22 Assessment & Plan Assessment and plan (1) DEON (acute kidney injury): Status: Resolved (2) CKD (chronic kidney disease) stage 3, GFR 30-59 ml/min: Status: Acute Plan Non-Oliguric DEON; peak Scr 4.4 with grad improvement but still not back to BSL ( 1.5-2.0) Etiol c/w Obs Uropathy and ques ischemic ATN s/p cystoscopy with evacuation of blood clots and bladder biopsy CT scan showed ?left hydronephrosis and UPJ obstruction, left renal stone and question focal bladder wall thickening along the dome and right lateral bladder wall ? CKD 3: SCr 1.5-2.0 Obs Uropathy: cont urol intervention REC: cont to trackUOP/renalfunc; avoid Ntoxins;cont urol eval Time Spent With Patient Time: Total time managing care of this patient today ____ minutes. Progress Note: Quality Stroke Does the patient have a stroke diagnosis?: No
[2022-08-10 16:15] LABS: Glucose, Whole Blood 251 mg/dL (60-115)
--- NOTE | 2022-08-10 18:33 | PC.NURSE ---
assumed care at 1500, pt is alert and orientedx3. No complaints. Able to void in bed. Bladder scanned post void for less than 14cc. [place] cath applied per pts request due to incontinence.
[2022-08-10 20:25] LABS: Glucose, Whole Blood 223 mg/dL (60-115)
[2022-08-10] MEDS: Doxazosin Mesylate 2 MG TABLET 4 MG PO (22:27)
[2022-08-10] MEDS: Atorvastatin Calcium 20 MG TABLET PO (22:28)
[2022-08-11 02:25] VITALS: BP 124/61; PULSE 97; RESP 18; TEMP 36.6; O2SAT 96
[2022-08-11] MEDS: Omeprazole 40 MG CAPSULE.DR PO (06:13)
[2022-08-11 06:22] LABS: MANUAL DIFF FLAG NO
[2022-08-11 06:25] LABS: Basophils Percent Auto 0.2 % (0-2); Eosinophils Absolute Auto 0.2 X10*3/uL (0.0-0.4); Eosinophils Percent Auto 2.4 % (0-4); Hematocrit 26.3 % (42.0-52.0); Hemoglobin 8.8 g/dl (14.0-18.0); Imm Gran Abs Auto 0.16 X10*3/uL (0.00-0.03); Imm Gran Pct Auto 1.8 % (0.0-0.4); Lymphocytes Absolute Auto 0.6 X10*3/uL (1.2-4.9); Lymphocytes Percent Auto 7.1 % (20-40); Mean Corpuscular HGB Conc 33.5 g/dl (31.0-36.0); Mean Corpuscular Hemoglobin 31.5 pg (27.0-33.0); Mean Corpuscular Volume 94.3 fL (80.0-98.0); Mean Platelet Volume 10.7 fL (9.4-12.4); Monocytes Absolute Auto 0.6 X10*3/uL (0.1-1.2); Monocytes Percent Auto 6.8 % (2-11); Neutrophils Absolute Auto 7.1 x10*3/uL (2.0-8.3); Neutrophils Percent Auto 81.7 % (45-73); Platelet Count 154 X10*3/uL (160-400); Red Blood Count 2.79 X10*6/uL (4.60-5.80); Red Cell Distribution Width 16.2 % (11.0-16.0); White Blood Count 8.7 X10*3/uL (4.8-10.8)
[2022-08-11 06:43] LABS: Alanine Aminotransferase 17 U/L (0-40); Alkaline Phosphatase 96 U/L (39-117); Anion Gap 14 (12-20); Aspartate Amino Transferase 27 U/L (5-37); Blood Urea Nitrogen 57 mg/dL (9-16); Calcium 7.9 mg/dL (8.4-10.2); Carbon Dioxide 20 mmol/L (22-29); Chloride 110 mmol/L (96-108); Estimated Glomerular Filt Rate 18; Glucose Fasting 164 mg/dL (60-99); Sodium 140 mmol/L (135-145); Total Protein 4.4 g/dL (6.5-8.0)
[2022-08-11 07:26] VITALS: BP 117/55; PULSE 84; RESP 20; TEMP 36.6; O2SAT 96
[2022-08-11 07:32] LABS: Glucose, Whole Blood 154 mg/dL (60-115)
[2022-08-11] MEDS: Insulin Lispro 100 UNIT/ML 3 ML VIAL SUBCUT ×4 (07:59→20:59)
[2022-08-11] MEDS: Finasteride 5 MG TABLET PO (08:00)
[2022-08-11] MEDS: Cholecalciferol (Vitamin D3) 25 MCG TABLET 50 MCG PO (08:00)
[2022-08-11] MEDS: Docusate Sodium 100 MG CAPSULE PO (08:00)
[2022-08-11] MEDS: Sodium Bicarbonate 650 MG TABLET PO ×3 (08:00→20:58)
[2022-08-11] MEDS: Empagliflozin 10 MG TABLET PO (08:00)
[2022-08-11] MEDS: Nystatin Powder 15 GM BOTTLE 1 APPL TOPICAL ×2 (08:03→21:01)
[2022-08-11] MEDS: polyethylene glycoL 3350 17 GM POWD.PACK PO (10:34)
[2022-08-11] MEDS: 0.9 % Sodium Chloride Flush 3 ML SYRINGE IVFLUSH ×2 (10:40→15:15)
--- NOTE | 2022-08-11 12:07 | HO.PM.IMPN ---
Subjective Subjective Date of Service: 08/11/22 Interval History: Three-way Cao removed yesterday. No control over urine this a.m.. No further hematuria Review of Systems Denies chest pain Denies shortness of breath Denies nausea vomiting diarrhea Denies fever chills Physical Exam Vital Signs: Vital Signs: Last Vital Signs Temp 97.9 F 08/11/22 07:26 Pulse 84 08/11/22 07:26 Resp 20 08/11/22 07:26 BP 117/55 L 08/11/22 07:26 Pulse Ox 96 08/11/22 07:26 O2 Del Method Room Air 08/11/22 07:26 O2 Flow Rate 1.5 08/07/22 10:30 BMI result Body Mass Index 26.2 Const: Other: Resting quietly no acute issues Resp: Other: Clear to auscultation bilaterally no rales rhonchi or wheezes Cardio: Other: No S4; positive S1-S2; no S3 murmurs rubs or gallops GI: Other: Soft nontender normoactive bowel sounds x4 quadrants : Other: Cao in place; cranberry colored urine in bag Extrem: Other: No edema bilaterally Objective Data Active Medications Acetaminophen (Acetaminophen 325 Mg Tablet) 650 mg PO Q6H PRN PRN Reason: Pain, Mild (Pain Scale 1-3) Last Admin: 08/09/22 20:55 Dose: 650 mg Documented By: SARTHAK Atorvastatin Calcium (Atorvastatin Calcium 20 Mg Tablet) 20 mg PO BEDTIME [facility] Last Admin: 08/10/22 22:28 Dose: 20 mg Documented By: CASANDRA Docusate Sodium (Docusate Sodium 100 Mg Capsule) 100 mg PO DAILY [facility] Last Admin: 08/11/22 08:00 Dose: 100 mg Documented By: CATHERINE Doxazosin Mesylate (Doxazosin Mesylate 2 Mg Tablet) 4 mg PO BEDTIME [facility]; Protocol Last Admin: 08/10/22 22:27 Dose: 4 mg Documented By: CASANDRA Empagliflozin (Empagliflozin 10 Mg Tablet) 10 mg PO DAILY [facility] Last Admin: 08/11/22 08:00 Dose: 10 mg Documented By: CATHERINE Fentanyl (Fentanyl Citrate/Pf 100 Mcg/2 Ml Vial) 25 mcg IVPUSH Q5M PRN; Protocol PRN Reason: Pain, Moderate(Pain Scale 4-6) Finasteride (Finasteride 5 Mg Tablet) 5 mg PO DAILY [facility] Last Admin: 08/11/22 08:00 Dose: 5 mg Documented By: CATHERINE Glucose (Glucose Gel 15 Gm Gel..Gram.) 15 gm PO Q15M PRN; Protocol PRN Reason: per Hypoglycemia Standing Ord. Glucose (Glucose Gel 15 Gm Gel..Gram.) 15 gm PO Q15M PRN; Protocol PRN Reason: per Hypoglycemia Standing Ord. Dextrose (D10) 250 mls @ 750 mls/hr IV Q15M PRN; Protocol PRN Reason: per Hypoglycemia Standing Ord. Dextrose (D10) 250 mls @ 750 mls/hr IV Q15M PRN; Protocol PRN Reason: per Hypoglycemia Standing Ord. Meropenem 500 mg/ Sodium (Chloride) 50 mls @ 100 mls/hr IV Q12H [facility] Last Infusion: 08/11/22 02:14 Dose: 0 mls/hr Documented By: CASANDRA Insulin Human Lispro (Insulin Lispro 100 Unit/Ml 3 Ml Vial) 0 unit SUBCUT QIDACHS [facility]; Protocol Last Admin: 08/11/22 11:33 Dose: 2 unit Documented By: CATHERINE Metoprolol Tartrate (Metoprolol Tartrate 12.5 Mg Halftab) 12.5 mg PO BID [facility]; Protocol Last Admin: 08/04/22 07:51 Dose: 12.5 mg Documented By: GUILLERMO Nystatin (Nystatin Powder 15 Gm Bottle) 1 appl TOPICAL BID [facility]; Protocol Last Admin: 08/11/22 08:03 Dose: 1 appl Documented By: CATHERINE Omeprazole (Omeprazole 40 Mg Capsule.) 40 mg PO DAILY@0630 [facility] Last Admin: 08/11/22 06:13 Dose: 40 mg Documented By: CASANDRA Ondansetron HCl (Ondansetron Hcl 4 Mg/2 Ml Vial) 4 mg IVPUSH Q8H PRN PRN Reason: Nausea and Vomiting Pharmacy Consult (Consult Rx Perform Med Rec) 1 each MISCELLANE ONCE PRN PRN Reason: Consult order Polyethylene Glycol (Polyethylene Glycol 3350 17 Gm Powd.Pack) 17 gm PO DAILY PRN PRN Reason: Constipation Last Admin: 08/11/22 10:34 Dose: 17 gm Documented By: CATHERINE Sodium Bicarbonate (Sodium Bicarbonate 650 Mg Tablet) 650 mg PO TID [facility] Last Admin: 08/11/22 08:00 Dose: 650 mg Documented By: CATHERINE Sodium Chloride (0.9 % Sodium Chloride Flush 3 Ml Syringe) 3 ml IVFLUSH QSHIFT [facility] Last Admin: 08/11/22 10:40 Dose: 3 ml Documented By: CATHERINE Sodium Chloride (Sodium Chloride 0.65 % Nasal 44 Ml Sprbtl) 1 spray NOSTRIL-B Q1H PRN PRN Reason: Dry Nasal Passages Vitamin D (Cholecalciferol (Vitamin D3) 25 Mcg Tablet) 50 mcg PO DAILY [facility] Last Admin: 08/11/22 08:00 Dose: 50 mcg Documented By: CATHERINE Labs 08/11/22 05:40 08/11/22 05:40 Labs: Laboratory Results - last 24 hr 08/10/22 08/10/22 08/11/22 16:04 20:02 05:40 MCV 94.3 MCH 31.5 MCHC 33.5 RDW 16.2 H Plt Count 154 L MPV 10.7 Immature Gran % (Auto) 1.8 H Neut % (Auto) 81.7 H Lymph % (Auto) 7.1 L [place] % (Auto) 6.8 Eos % (Auto) 2.4 Baso % (Auto) 0.2 Lymph # (Auto) 0.6 L [place] # (Auto) 0.6 Eos # (Auto) 0.2 Baso # (Auto) 0.0 Abs Immat Gran (auto) 0.16 H Absolute Neuts (auto) 7.1 Absolute Nucleated RBC 0.000 Nucleated RBC % (auto) 0.0 Anion Gap Estim Creat Clear Calc Estimated GFR POC Glucose 251 H 223 H Fasting Glucose Calcium Total Bilirubin AST ALT Alkaline Phosphatase Total Protein Albumin 08/11/22 08/11/22 05:40 07:29 MCV MCH MCHC RDW Plt Count MPV Immature Gran % (Auto) Neut % (Auto) Lymph % (Auto) [place] % (Auto) Eos % (Auto) Baso % (Auto) Lymph # (Auto) [place] # (Auto) Eos # (Auto) Baso # (Auto) Abs Immat Gran (auto) Absolute Neuts (auto) Absolute Nucleated RBC Nucleated RBC % (auto) Anion Gap 14 Estim Creat Clear Calc 18.0 Estimated GFR 18 POC Glucose 154 H Fasting Glucose 164 H Calcium 7.9 L Total Bilirubin 1.0 AST 27 ALT 17 Alkaline Phosphatase 96 Total Protein 4.4 L Albumin 2.0 L Assessment and Plan (1) Hematuria: Status: Acute (2) Bladder mass: Status: Acute (3) Acute kidney injury superimposed on CKD: Status: Acute (4) Type 2 diabetes mellitus with unspecified complications: Status: Acute Plan 81-year-old male with past medical history of acute osteomyelitis recently discharged from the hospital on 6 weeks of ertapenem, as well as peripheral vascular disease status post SFA atherectomy earlier this month, was to be on Plavix and aspirin for 6 months presents to the hospital with gross hematuria, as well as positive stool occult. Upper endoscopy negative for origin of bleeding. 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 .. Single-lumen replaced -will discuss with Urology; continue catheter for now 2. Acute GI bleed (occult positive on admission) -omeprazole po -s/p EGD 08/02 with mild gastric erythema and non-bleeding AVMs, no bleeding seen in the UGI- anemia thought r/t to persistent hematuria 3.DEON on CKD3 -minimal change in creatinine over the last 24 hours... Downward trend -bicarb improving -follow renals/Divalents 4.Acute osteomyelitis (strep viridans/MSSA)- -ertapenem x6 weeks since 07/16 (end date 08/30); meropenem inpatient... Continue same -wound cares ordered 5.DMII -acceptable control on current therapies -continue sliding scale insulin (add back orals when appropriate) Boots Full code Requires ongoing hospitalization for continuous bladder irrigation until hematuria resolves. Physical therapy strongly recommending rehab; patient is slightly more unstable on feet. Now with chronic Cao. Short-term rehab appears unavoidable. Will discuss with Time Spent With Patient Time: Total time managing care of this patient today ____ minutes. Quality Stroke Does the patient have a stroke diagnosis?: No VTE Prior VTE?: No VTE Risk Level:: Medical - moderate - high VTE Device Contraindication: N/A - Device Ordered VTE Drug Contraindication: Treatment Not Indicated
[2022-08-11 15:42] VITALS: BP 136/71; PULSE 100; RESP 20; TEMP 36.2; O2SAT 98
--- NOTE | 2022-08-11 15:50 | PM.PNNEP ---
Subjective Subjective Date of Service: 08/11/22 Interval history: Seen and examined, events noted Physical Exam Vital Signs: Vital Signs: Last Vital Signs Temp 97.2 F 08/11/22 15:42 Pulse 100 08/11/22 15:42 Resp 20 08/11/22 15:42 BP 136/71 08/11/22 15:42 Pulse Ox 98 08/11/22 15:42 O2 Del Method Room Air 08/11/22 15:42 O2 Flow Rate 1.5 08/07/22 10:30 BMI result Body Mass Index 26.2 Const: General: alert and awake HEENT: Head: Yes normocephalic and Yes atraumatic Neck: Neck: Yes supple Resp: Effort & Inspection: normal respiratory effort Cardio: Heart sounds: S1 normal heart sound present and S2 normal heart sound present GI: Palpation (GI): Soft to palpation and nontender Extrem: Right upper extremity: no edema Objective Data Labs 08/11/22 05:40 08/11/22 05:40 Labs: Laboratory Results - last 24 hr 08/10/22 08/10/22 08/11/22 16:04 20:02 05:40 WBC 8.7 RBC 2.79 L Hgb 8.8 L Hct 26.3 L MCV 94.3 MCH 31.5 MCHC 33.5 RDW 16.2 H Plt Count 154 L MPV 10.7 Immature Gran % (Auto) 1.8 H Neut % (Auto) 81.7 H Lymph % (Auto) 7.1 L [place] % (Auto) 6.8 Eos % (Auto) 2.4 Baso % (Auto) 0.2 Lymph # (Auto) 0.6 L [place] # (Auto) 0.6 Eos # (Auto) 0.2 Baso # (Auto) 0.0 Abs Immat Gran (auto) 0.16 H Absolute Neuts (auto) 7.1 Absolute Nucleated RBC 0.000 Nucleated RBC % (auto) 0.0 Sodium Potassium Chloride Carbon Dioxide Anion Gap BUN Creatinine Estim Creat Clear Calc Estimated GFR POC Glucose 251 H 223 H Fasting Glucose Calcium Total Bilirubin AST ALT Alkaline Phosphatase Total Protein Albumin 08/11/22 08/11/22 05:40 07:29 WBC RBC Hgb Hct MCV MCH MCHC RDW Plt Count MPV Immature Gran % (Auto) Neut % (Auto) Lymph % (Auto) [place] % (Auto) Eos % (Auto) Baso % (Auto) Lymph # (Auto) [place] # (Auto) Eos # (Auto) Baso # (Auto) Abs Immat Gran (auto) Absolute Neuts (auto) Absolute Nucleated RBC Nucleated RBC % (auto) Sodium 140 Potassium 4.0 Chloride 110 H Carbon Dioxide 20 L Anion Gap 14 BUN 57 H Creatinine 3.27 H Estim Creat Clear Calc 18.0 Estimated GFR 18 POC Glucose 154 H Fasting Glucose 164 H Calcium 7.9 L Total Bilirubin 1.0 AST 27 ALT 17 Alkaline Phosphatase 96 Total Protein 4.4 L Albumin 2.0 L Microbiology Microbiology Results: Microbiology 08/01/22 08:08 Blood - Venous Blood Culture - Final No growth after 5 days. 08/01/22 08:08 Blood - Venous Blood Culture - Final No growth after 5 days. 08/01/22 Unknown Urine Catheterized - Straight Catheter Urine Culture - Final No growth. Procedures Date of Service Date of Service: 08/11/22 Assessment & Plan Assessment and plan (1) DEON (acute kidney injury): Status: Resolved (2) CKD (chronic kidney disease) stage 3, GFR 30-59 ml/min: Status: Acute Plan Non-Oliguric DEON; peak Scr 4.4 with grad improvement but still not back to BSL ( 1.5-2.0) Etiol c/w Obs Uropathy and ques ischemic ATN s/p cystoscopy with evacuation of blood clots and bladder biopsy CT scan showed ?left hydronephrosis and UPJ obstruction, left renal stone and question focal bladder wall thickening along the dome and right lateral bladder wall ? CKD 3: SCr 1.5-2.0 Obs Uropathy: cont urol intervention REC: cont to trackUOP/renal func; avoid Ntoxins;cont urol eval Time Spent With Patient Time: Total time managing care of this patient today ____ minutes. Progress Note: Quality Stroke Does the patient have a stroke diagnosis?: No
[2022-08-11 16:29] LABS: Glucose, Whole Blood 258 mg/dL (60-115)
--- NOTE | 2022-08-11 18:24 | PC.NURSE ---
New loya placed 08/11 per md Rush d/t incontinece. Loya emptied ealier w/ red tinged urine w/ some clots. Seems to be improving. emptied 400 ml pick tinged. Adri aware.
[2022-08-11 19:49] VITALS: BP 121/58; PULSE 99; RESP 16; TEMP 36.3; O2SAT 97
[2022-08-11 20:53] LABS: Glucose, Whole Blood 197 mg/dL (60-115)
[2022-08-11] MEDS: Doxazosin Mesylate 2 MG TABLET 4 MG PO (20:58)
[2022-08-11] MEDS: Atorvastatin Calcium 20 MG TABLET PO (20:58)
[2022-08-12] MEDS: 0.9 % Sodium Chloride Flush 3 ML SYRINGE IVFLUSH ×3 (01:12→15:16)
[2022-08-12 04:00] VITALS: BP 121/58; PULSE 100; RESP 15; TEMP 36.3; O2SAT 95
[2022-08-12] MEDS: Omeprazole 40 MG CAPSULE.DR PO (05:33)
[2022-08-12 07:40] LABS: Glucose, Whole Blood 148 mg/dL (60-115)
[2022-08-12 07:41] VITALS: BP 114/60; PULSE 99; RESP 16; TEMP 36.6; O2SAT 95
[2022-08-12] MEDS: Sodium Bicarbonate 650 MG TABLET PO ×3 (07:55→21:16)
[2022-08-12] MEDS: Docusate Sodium 100 MG CAPSULE PO (07:55)
[2022-08-12] MEDS: Cholecalciferol (Vitamin D3) 25 MCG TABLET 50 MCG PO (07:55)
[2022-08-12] MEDS: Empagliflozin 10 MG TABLET PO (07:55)
[2022-08-12] MEDS: Nystatin Powder 15 GM BOTTLE 1 APPL TOPICAL ×2 (07:56→21:22)
[2022-08-12] MEDS: Finasteride 5 MG TABLET PO (07:56)
--- NOTE | 2022-08-12 10:09 | HO.PM.IMPN ---
Subjective Subjective Date of Service: 08/12/22 Interval History: Tolerating Cao. No acute issues overnight. Remains unsteady with ambulation Review of Systems Denies chest pain Denies shortness of breath Denies nausea vomiting diarrhea Denies fever chills Physical Exam Vital Signs: Vital Signs: Last Vital Signs Temp 97.8 F 08/12/22 07:41 Pulse 99 08/12/22 07:41 Resp 16 08/12/22 07:41 BP 114/60 08/12/22 07:41 Pulse Ox 95 08/12/22 07:41 O2 Del Method Room Air 08/12/22 07:41 O2 Flow Rate 1.5 08/07/22 10:30 BMI result Body Mass Index 26.2 Const: Other: Resting quietly no acute issues Resp: Other: Clear to auscultation bilaterally no rales rhonchi or wheezes Cardio: Other: No S4; positive S1-S2; no S3 murmurs rubs or gallops GI: Other: Soft nontender normoactive bowel sounds x4 quadrants : Other: Cao in place; cranberry colored urine in bag Extrem: Other: No edema bilaterally Objective Data Active Medications Acetaminophen (Acetaminophen 325 Mg Tablet) 650 mg PO Q6H PRN PRN Reason: Pain, Mild (Pain Scale 1-3) Last Admin: 08/09/22 20:55 Dose: 650 mg Documented By: SARTHAK Atorvastatin Calcium (Atorvastatin Calcium 20 Mg Tablet) 20 mg PO BEDTIME [facility] Last Admin: 08/11/22 20:58 Dose: 20 mg Documented By: KARI Docusate Sodium (Docusate Sodium 100 Mg Capsule) 100 mg PO DAILY [facility] Last Admin: 08/12/22 07:55 Dose: 100 mg Documented By: MICHELLE Doxazosin Mesylate (Doxazosin Mesylate 2 Mg Tablet) 4 mg PO BEDTIME [facility]; Protocol Last Admin: 08/11/22 20:58 Dose: 4 mg Documented By: KARI Empagliflozin (Empagliflozin 10 Mg Tablet) 10 mg PO DAILY [facility] Last Admin: 08/12/22 07:55 Dose: 10 mg Documented By: MICHELLE Finasteride (Finasteride 5 Mg Tablet) 5 mg PO DAILY [facility] Last Admin: 08/12/22 07:56 Dose: 5 mg Documented By: MICHELLE Glucose (Glucose Gel 15 Gm Gel..Gram.) 15 gm PO Q15M PRN; Protocol PRN Reason: per Hypoglycemia Standing Ord. Glucose (Glucose Gel 15 Gm Gel..Gram.) 15 gm PO Q15M PRN; Protocol PRN Reason: per Hypoglycemia Standing Ord. Dextrose (D10) 250 mls @ 750 mls/hr IV Q15M PRN; Protocol PRN Reason: per Hypoglycemia Standing Ord. Dextrose (D10) 250 mls @ 750 mls/hr IV Q15M PRN; Protocol PRN Reason: per Hypoglycemia Standing Ord. Meropenem 500 mg/ Sodium (Chloride) 50 mls @ 100 mls/hr IV Q12H [facility] Last Infusion: 08/12/22 01:46 Dose: 0 mls/hr Documented By: KARI Insulin Human Lispro (Insulin Lispro 100 Unit/Ml 3 Ml Vial) 0 unit SUBCUT QIDACHS [facility]; Protocol Last Admin: 08/12/22 07:50 Dose: Not Given Documented By: MICHELLE Non-Admin Reason: No Insulin Coverage Metoprolol Tartrate (Metoprolol Tartrate 12.5 Mg Halftab) 12.5 mg PO BID [facility]; Protocol Last Admin: 08/04/22 07:51 Dose: 12.5 mg Documented By: GUILLERMO Nystatin (Nystatin Powder 15 Gm Bottle) 1 appl TOPICAL BID [facility]; Protocol Last Admin: 08/12/22 07:56 Dose: 1 appl Documented By: MICHELLE Omeprazole (Omeprazole 40 Mg Capsule.) 40 mg PO DAILY@0630 [facility] Last Admin: 08/12/22 05:33 Dose: 40 mg Documented By: KARI Ondansetron HCl (Ondansetron Hcl 4 Mg/2 Ml Vial) 4 mg IVPUSH Q8H PRN PRN Reason: Nausea and Vomiting Pharmacy Consult (Consult Rx Perform Med Rec) 1 each MISCELLANE ONCE PRN PRN Reason: Consult order Polyethylene Glycol (Polyethylene Glycol 3350 17 Gm Powd.Pack) 17 gm PO DAILY PRN PRN Reason: Constipation Last Admin: 08/11/22 10:34 Dose: 17 gm Documented By: CATHERINE Sodium Bicarbonate (Sodium Bicarbonate 650 Mg Tablet) 650 mg PO TID [facility] Last Admin: 08/12/22 07:55 Dose: 650 mg Documented By: MICHELLE Sodium Chloride (0.9 % Sodium Chloride Flush 3 Ml Syringe) 3 ml IVFLUSH QSHIFT [facility] Last Admin: 08/12/22 07:56 Dose: 3 ml Documented By: MICHELLE Sodium Chloride (Sodium Chloride 0.65 % Nasal 44 Ml Sprbtl) 1 spray NOSTRIL-B Q1H PRN PRN Reason: Dry Nasal Passages Vitamin D (Cholecalciferol (Vitamin D3) 25 Mcg Tablet) 50 mcg PO DAILY [facility] Last Admin: 08/12/22 07:55 Dose: 50 mcg Documented By: MICHELLE Labs 08/11/22 05:40 08/11/22 05:40 Labs: Laboratory Results - last 24 hr 08/11/22 08/11/22 08/12/22 16:24 20:49 07:36 POC Glucose 258 H 197 H 148 H Assessment and Plan (1) Hematuria: Status: Acute (2) Acute kidney injury superimposed on CKD: Status: Acute (3) Type 2 diabetes mellitus with unspecified complications: Status: Acute Plan 81-year-old male with past medical history of acute osteomyelitis recently discharged from the hospital on 6 weeks of ertapenem, as well as peripheral vascular disease status post SFA atherectomy earlier this month, was to be on Plavix and aspirin for 6 months presents to the hospital with gross hematuria, as well as positive stool occult. Upper endoscopy negative for origin of bleeding. 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 .. Single-lumen replaced -discussed with Urology; continue catheter for now 2. Acute GI bleed (occult positive on admission) -omeprazole po -s/p EGD 08/02 with mild gastric erythema and non-bleeding AVMs, no bleeding seen in the UGI- anemia thought r/t to persistent hematuria 3.DEON on CKD3 -minimal change in creatinine over the last 24 hours... Downward trend -bicarb improving -follow renals/Divalents 4.Acute osteomyelitis (strep viridans/MSSA)- -ertapenem x6 weeks since 07/16 (end date 08/30); meropenem inpatient... Continue same -wound cares ordered 5.DMII -acceptable control on current therapies -continue sliding scale insulin (add back orals when appropriate) Boots Full code Requires ongoing hospitalization pending placement authorization. Although patient is not in favor of short-term rehab, I believe he is high risk for outpatient failure without rehab. in agreement Time Spent With Patient Time: Total time managing care of this patient today ____ minutes. Quality Stroke Does the patient have a stroke diagnosis?: No VTE Prior VTE?: No VTE Risk Level:: Medical - moderate - high VTE Device Contraindication: N/A - Device Ordered VTE Drug Contraindication: Treatment Not Indicated
--- NOTE | 2022-08-12 11:28 | PM.PNNEP ---
Subjective Subjective Date of Service: 08/12/22 Interval history: Seen and examined, events noted Physical Exam Vital Signs: Vital Signs: Last Vital Signs Temp 97.8 F 08/12/22 07:41 Pulse 99 08/12/22 07:41 Resp 16 08/12/22 07:41 BP 114/60 08/12/22 07:41 Pulse Ox 95 08/12/22 07:41 O2 Del Method Room Air 08/12/22 07:41 O2 Flow Rate 1.5 08/07/22 10:30 BMI result Body Mass Index 26.2 Const: General: alert and awake HEENT: Head: Yes normocephalic and Yes atraumatic Neck: Neck: Yes supple Resp: Effort & Inspection: normal respiratory effort Cardio: Heart sounds: S1 normal heart sound present and S2 normal heart sound present GI: Palpation (GI): Soft to palpation and nontender Extrem: Right upper extremity: no edema Objective Data Labs 08/11/22 05:40 08/11/22 05:40 Labs: Laboratory Results - last 24 hr 08/11/22 08/11/22 08/12/22 16:24 20:49 07:36 POC Glucose 258 H 197 H 148 H Microbiology Microbiology Results: Microbiology 08/01/22 08:08 Blood - Venous Blood Culture - Final No growth after 5 days. 08/01/22 08:08 Blood - Venous Blood Culture - Final No growth after 5 days. 08/01/22 Unknown Urine Catheterized - Straight Catheter Urine Culture - Final No growth. Procedures Date of Service Date of Service: 08/12/22 Assessment & Plan Assessment and plan (1) DEON (acute kidney injury): Status: Resolved (2) CKD (chronic kidney disease) stage 3, GFR 30-59 ml/min: Status: Acute Plan Non-Oliguric DEON; peak Scr 4.4 with grad improvement but still not back to BSL ( 1.5-2.0) Etiol c/w Obs Uropathy and ques ischemic ATN s/p cystoscopy with evacuation of blood clots and bladder biopsy CT scan showed ?left hydronephrosis and UPJ obstruction, left renal stone and question focal bladder wall thickening along the dome and right lateral bladder wall ? CKD 3: SCr 1.5-2.0 Obs Uropathy: cont urol intervention REC: urol to see; cont to trackUOP/renal func; avoid Ntoxins;cont urol eval Time Spent With Patient Time: Total time managing care of this patient today ____ minutes. Progress Note: Quality Stroke Does the patient have a stroke diagnosis?: No
[2022-08-12 11:39] LABS: Glucose, Whole Blood 219 mg/dL (60-115)
[2022-08-12] MEDS: Insulin Lispro 100 UNIT/ML 3 ML VIAL SUBCUT ×3 (11:44→21:16)
[2022-08-12 15:51] VITALS: BP 115/57; PULSE 99; RESP 16; TEMP 36.2; O2SAT 98
[2022-08-12 16:17] LABS: Glucose, Whole Blood 221 mg/dL (60-115)
[2022-08-12] MEDS: polyethylene glycoL 3350 17 GM POWD.PACK PO (16:31)
[2022-08-12 19:22] VITALS: BP 126/59; PULSE 109; RESP 16; TEMP 36.2; O2SAT 95
[2022-08-12 20:42] LABS: Glucose, Whole Blood 275 mg/dL (60-115)
[2022-08-12] MEDS: Atorvastatin Calcium 20 MG TABLET PO (21:16)
[2022-08-12] MEDS: Doxazosin Mesylate 2 MG TABLET 4 MG PO (21:16)
[2022-08-13 03:35] VITALS: BP 125/60; PULSE 97; RESP 16; TEMP 36.6; O2SAT 94
[2022-08-13] MEDS: Omeprazole 40 MG CAPSULE.DR PO (05:16)
[2022-08-13 06:36] LABS: Hematocrit 24.7 % (42.0-52.0); Hemoglobin 8.1 g/dl (14.0-18.0); Mean Corpuscular HGB Conc 32.8 g/dl (31.0-36.0); Mean Corpuscular Hemoglobin 31.6 pg (27.0-33.0); Mean Corpuscular Volume 96.5 fL (80.0-98.0); Platelet Count 166 X10*3/uL (160-400); Red Blood Count 2.56 X10*6/uL (4.60-5.80); Red Cell Distribution Width 15.5 % (11.0-16.0)
[2022-08-13 07:02] LABS: Alanine Aminotransferase 16 U/L (0-40); Albumin Level 2.1 g/dL (3.5-5.0); Alkaline Phosphatase 103 U/L (39-117); Anion Gap 14 (12-20); Aspartate Amino Transferase 25 U/L (5-37); Blood Urea Nitrogen 49 mg/dL (9-16); Carbon Dioxide 22 mmol/L (22-29); Chloride 107 mmol/L (96-108); Creatinine Clr Calc Pharmacy 19.5; Estimated Glomerular Filt Rate 20; Glucose Fasting 126 mg/dL (60-99); Sodium 139 mmol/L (135-145); Total Protein 4.5 g/dL (6.5-8.0)
[2022-08-13 07:25] VITALS: BP 118/64; PULSE 86; RESP 18; TEMP 37.2; O2SAT 94
[2022-08-13 07:40] LABS: Glucose, Whole Blood 138 mg/dL (60-115)
[2022-08-13] MEDS: Sodium Bicarbonate 650 MG TABLET PO ×3 (08:24→20:53)
[2022-08-13] MEDS: Docusate Sodium 100 MG CAPSULE PO (08:24)
[2022-08-13] MEDS: Finasteride 5 MG TABLET PO (08:24)
[2022-08-13] MEDS: Empagliflozin 10 MG TABLET PO (08:24)
[2022-08-13] MEDS: Cholecalciferol (Vitamin D3) 25 MCG TABLET 50 MCG PO (08:24)
[2022-08-13] MEDS: 0.9 % Sodium Chloride Flush 3 ML SYRINGE IVFLUSH ×2 (08:24→17:17)
[2022-08-13] MEDS: Nystatin Powder 15 GM BOTTLE 1 APPL TOPICAL ×2 (08:25→21:05)
[2022-08-13 11:15] LABS: Glucose, Whole Blood 228 mg/dL (60-115)
--- NOTE | 2022-08-13 11:35 | HO.PM.IMPN ---
Subjective Subjective Date of Service: 08/13/22 Interval History: Complaining of discomfort right lateral thigh also complaining of constipation, otherwise doing well tolerating diet with no nausea, no vomiting, no abdominal pain, denies fever, no chills no other acute issues wishes to be discharged home as opposed to rehab. Review of Systems All other system are reviewed and negative. Physical Exam Vital Signs: Vital Signs: Last Vital Signs Temp 98.9 F 08/13/22 07:25 Pulse 86 08/13/22 07:25 Resp 18 08/13/22 07:25 BP 118/64 08/13/22 07:25 Pulse Ox 94 08/13/22 07:25 O2 Del Method Room Air 08/13/22 07:25 O2 Flow Rate 1.5 08/07/22 10:30 BMI result Body Mass Index 26.2 Const: Other: Gen: Awake alert in no acute distress HEENT: sclera anicteric, moist mucus membranes Neck: supple Lungs: clear to auscultation bilaterally Heart: regular rate and rhythm, no murmurs Abd: soft, non-tender, non-distended pitting edema noted bilateral thighs laterally Ext: no edema Skin: warm/well-perfused, right foot dressing in place no drainage Neuro: alert and oriented x3, no focal findings Psych: appropriate affect Objective Data Active Medications Acetaminophen (Acetaminophen 325 Mg Tablet) 650 mg PO Q6H PRN PRN Reason: Pain, Mild (Pain Scale 1-3) Last Admin: 08/09/22 20:55 Dose: 650 mg Documented By: SARTHAK Atorvastatin Calcium (Atorvastatin Calcium 20 Mg Tablet) 20 mg PO BEDTIME [facility] Last Admin: 08/12/22 21:16 Dose: 20 mg Documented By: JONATHAN Docusate Sodium (Docusate Sodium 100 Mg Capsule) 100 mg PO DAILY [facility] Last Admin: 08/13/22 08:24 Dose: 100 mg Documented By: ROLAND Doxazosin Mesylate (Doxazosin Mesylate 2 Mg Tablet) 4 mg PO BEDTIME [facility]; Protocol Last Admin: 08/12/22 21:16 Dose: 4 mg Documented By: JONATHAN Empagliflozin (Empagliflozin 10 Mg Tablet) 10 mg PO DAILY [facility] Last Admin: 08/13/22 08:24 Dose: 10 mg Documented By: ROLAND Finasteride (Finasteride 5 Mg Tablet) 5 mg PO DAILY [facility] Last Admin: 08/13/22 08:24 Dose: 5 mg Documented By: ROLAND Glucose (Glucose Gel 15 Gm Gel..Gram.) 15 gm PO Q15M PRN; Protocol PRN Reason: per Hypoglycemia Standing Ord. Glucose (Glucose Gel 15 Gm Gel..Gram.) 15 gm PO Q15M PRN; Protocol PRN Reason: per Hypoglycemia Standing Ord. Dextrose (D10) 250 mls @ 750 mls/hr IV Q15M PRN; Protocol PRN Reason: per Hypoglycemia Standing Ord. Dextrose (D10) 250 mls @ 750 mls/hr IV Q15M PRN; Protocol PRN Reason: per Hypoglycemia Standing Ord. Meropenem 500 mg/ Sodium (Chloride) 50 mls @ 100 mls/hr IV Q12H [facility] Last Infusion: 08/13/22 01:07 Dose: 0 mls/hr Documented By: JONATHAN Insulin Human Lispro (Insulin Lispro 100 Unit/Ml 3 Ml Vial) 0 unit SUBCUT QIDACHS [facility]; Protocol Last Admin: 08/13/22 07:43 Dose: Not Given Documented By: ROLAND Non-Admin Reason: No Insulin Coverage Metoprolol Tartrate (Metoprolol Tartrate 12.5 Mg Halftab) 12.5 mg PO BID [facility]; Protocol Last Admin: 08/04/22 07:51 Dose: 12.5 mg Documented By: GUILLERMO Nystatin (Nystatin Powder 15 Gm Bottle) 1 appl TOPICAL BID [facility]; Protocol Last Admin: 08/13/22 08:25 Dose: 1 appl Documented By: ROLAND Omeprazole (Omeprazole 40 Mg Capsule.Dr) 40 mg PO DAILY@0630 [facility] Last Admin: 08/13/22 05:16 Dose: 40 mg Documented By: JONATHAN Ondansetron HCl (Ondansetron Hcl 4 Mg/2 Ml Vial) 4 mg IVPUSH Q8H PRN PRN Reason: Nausea and Vomiting Pharmacy Consult (Consult Rx Perform Med Rec) 1 each MISCELLANE ONCE PRN PRN Reason: Consult order Polyethylene Glycol (Polyethylene Glycol 3350 17 Gm Powd.Pack) 17 gm PO DAILY PRN PRN Reason: Constipation Last Admin: 08/12/22 16:31 Dose: 17 gm Documented By: MICHELLE Sodium Bicarbonate (Sodium Bicarbonate 650 Mg Tablet) 650 mg PO TID [facility] Last Admin: 08/13/22 08:24 Dose: 650 mg Documented By: ROLAND Sodium Chloride (0.9 % Sodium Chloride Flush 3 Ml Syringe) 3 ml IVFLUSH QSHIFT [facility] Last Admin: 08/13/22 08:24 Dose: 3 ml Documented By: ROLAND Sodium Chloride (Sodium Chloride 0.65 % Nasal 44 Ml Sprbtl) 1 spray NOSTRIL-B Q1H PRN PRN Reason: Dry Nasal Passages Vitamin D (Cholecalciferol (Vitamin D3) 25 Mcg Tablet) 50 mcg PO DAILY [facility] Last Admin: 08/13/22 08:24 Dose: 50 mcg Documented By: ROLAND Labs 08/13/22 05:47 08/13/22 05:47 Labs: Laboratory Results - last 24 hr 08/12/22 08/12/22 08/12/22 11:35 16:13 20:38 MCV MCH MCHC RDW Plt Count MPV Absolute Nucleated RBC Nucleated RBC % (auto) Anion Gap Estim Creat Clear Calc Estimated GFR POC Glucose 219 H 221 H 275 H Fasting Glucose Calcium Total Bilirubin AST ALT Alkaline Phosphatase Total Protein Albumin 08/13/22 08/13/22 08/13/22 05:47 05:47 07:23 MCV 96.5 MCH 31.6 MCHC 32.8 RDW 15.5 Plt Count 166 MPV 11.0 Absolute Nucleated RBC 0.000 Nucleated RBC % (auto) 0.0 Anion Gap 14 Estim Creat Clear Calc 19.5 Estimated GFR 20 POC Glucose 138 H Fasting Glucose 126 H Calcium 8.0 L Total Bilirubin 1.0 AST 25 ALT 16 Alkaline Phosphatase 103 Total Protein 4.5 L Albumin 2.1 L 08/13/22 11:11 MCV MCH MCHC RDW Plt Count MPV Absolute Nucleated RBC Nucleated RBC % (auto) Anion Gap Estim Creat Clear Calc Estimated GFR POC Glucose 228 H Fasting Glucose Calcium Total Bilirubin AST ALT Alkaline Phosphatase Total Protein Albumin Assessment and Plan (1) Hematuria: Status: Acute (2) Acute kidney injury superimposed on CKD: Status: Acute (3) Type 2 diabetes mellitus with unspecified complications: Status: Acute Plan 81-year-old male with past medical history of acute osteomyelitis recently discharged from the hospital on 6 weeks of ertapenem, as well as peripheral vascular disease status post SFA atherectomy earlier this month, was to be on Plavix and aspirin for 6 months presents to the hospital with gross hematuria, as well as positive stool occult. Upper endoscopy negative for origin of bleeding. 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 Acute GI bleed (occult positive on admission) -continue omeprazole po -s/p EGD 08/02 with mild gastric erythema and non-bleeding AVMs, no bleeding seen in the UGI- anemia thought r/t to persistent hematuria 3.DEON on CKD3 -creatinine remains elevated, being followed by Nephrology, etiology consistent with obstructive uropathy and question ischemic ATN, s/p cystoscopy with evacuation of blood clots and bladder biopsy CT scan showed??left hydronephrosis and UPJ obstruction, left renal stone and question focal bladder wall thickening along the dome and right lateral bladder wall. ? bicarb improved, avoid nephrotoxin, will need continued urological evaluation upon discharge, follow BMP 4.Acute osteomyelitis (strep viridans/MSSA)- -ertapenem x6 weeks since 07/16 (end date 08/30); meropenem inpatient... Continue same -continue wound care 5.DMII -blood sugars elevated, continue Jardiance, and insulin sliding scale, resume glipizide, Trulicity is non formulary. 6. Constipation on Colace will schedule MiraLax and give lactulose x1 Boots Full code Requires ongoing hospitalization pending placement authorization. Although patient is not in favor of short-term rehab, I believe he is high risk for outpatient failure without rehab. in agreement Will request re-evaluation by Physical therapy recommend ambulation while in hospital t.i.d. Time Spent With Patient Time: Total time managing care of this patient today ____ minutes. Quality Stroke Does the patient have a stroke diagnosis?: No VTE Prior VTE?: No VTE Risk Level:: Medical - moderate - high VTE Device Contraindication: N/A - Device Ordered VTE Drug Contraindication: Treatment Not Indicated
[2022-08-13] MEDS: Lactulose 20 GM/30 ML SOLUTION 10 GM PO (11:38)
[2022-08-13] MEDS: Insulin Lispro 100 UNIT/ML 3 ML VIAL SUBCUT ×3 (11:39→20:52)
[2022-08-13 15:34] VITALS: BP 128/60; PULSE 91; RESP 18; TEMP 36.3; O2SAT 97
[2022-08-13 16:05] LABS: Glucose, Whole Blood 198 mg/dL (60-115)
[2022-08-13] MEDS: Acetaminophen 325 MG TABLET 650 MG PO (17:16)
--- NOTE | 2022-08-13 18:21 | PM.PNNEP ---
Subjective Subjective Date of Service: 08/13/22 Interval history: Seen and exmained, events noted Physical Exam Vital Signs: Vital Signs: Last Vital Signs Temp 97.4 F 08/13/22 15:34 Pulse 91 08/13/22 15:34 Resp 18 08/13/22 15:34 BP 128/60 08/13/22 15:34 Pulse Ox 97 08/13/22 15:34 O2 Del Method Room Air 08/13/22 15:34 O2 Flow Rate 1.5 08/07/22 10:30 BMI result Body Mass Index 26.2 Const: General: alert and awake HEENT: Head: Yes normocephalic and Yes atraumatic Neck: Neck: Yes supple Resp: Effort & Inspection: normal respiratory effort Cardio: Heart sounds: S1 normal heart sound present and S2 normal heart sound present GI: Palpation (GI): Soft to palpation and nontender Extrem: Right upper extremity: no edema Objective Data Labs 08/13/22 05:47 08/13/22 05:47 Labs: Laboratory Results - last 24 hr 08/12/22 08/13/22 08/13/22 20:38 05:47 05:47 WBC 10.0 RBC 2.56 L Hgb 8.1 L Hct 24.7 L MCV 96.5 MCH 31.6 MCHC 32.8 RDW 15.5 Plt Count 166 MPV 11.0 Absolute Nucleated RBC 0.000 Nucleated RBC % (auto) 0.0 Sodium 139 Potassium 4.0 Chloride 107 Carbon Dioxide 22 Anion Gap 14 BUN 49 H Creatinine 3.02 H Estim Creat Clear Calc 19.5 Estimated GFR 20 POC Glucose 275 H Fasting Glucose 126 H Calcium 8.0 L Total Bilirubin 1.0 AST 25 ALT 16 Alkaline Phosphatase 103 Total Protein 4.5 L Albumin 2.1 L 08/13/22 08/13/22 08/13/22 07:23 11:11 16:00 WBC RBC Hgb Hct MCV MCH MCHC RDW Plt Count MPV Absolute Nucleated RBC Nucleated RBC % (auto) Sodium Potassium Chloride Carbon Dioxide Anion Gap BUN Creatinine Estim Creat Clear Calc Estimated GFR POC Glucose 138 H 228 H 198 H Fasting Glucose Calcium Total Bilirubin AST ALT Alkaline Phosphatase Total Protein Albumin Microbiology Microbiology Results: Microbiology 08/01/22 08:08 Blood - Venous Blood Culture - Final No growth after 5 days. 08/01/22 08:08 Blood - Venous Blood Culture - Final No growth after 5 days. 08/01/22 Unknown Urine Catheterized - Straight Catheter Urine Culture - Final No growth. Procedures Date of Service Date of Service: 08/13/22 Assessment & Plan Assessment and plan (1) DEON (acute kidney injury): Status: Resolved (2) CKD (chronic kidney disease) stage 3, GFR 30-59 ml/min: Status: Acute Plan Non-Oliguric DEON; peak Scr 4.4 with grad improvement but still not back to BSL ( 1.5-2.0) Etiol c/w Obs Uropathy and ques ischemic ATN s/p cystoscopy with evacuation of blood clots and bladder biopsy CT scan showed ?left hydronephrosis and UPJ obstruction, left renal stone and question focal bladder wall thickening along the dome and right lateral bladder wall ? CKD 3: SCr 1.5-2.0 Obs Uropathy: cont urol intervention Disc:delay renalrecovery despite loya and OBs uropathy relieved ?, d/w urol as to need for repeat U/S vs simply cont to monitor REC: urol to see; cont to track UOP/renal func; avoid Ntoxins; Time Spent With Patient Time: Total time managing care of this patient today ____ minutes. Progress Note: Quality Stroke Does the patient have a stroke diagnosis?: No
[2022-08-13 19:45] VITALS: BP 120/57; PULSE 91; RESP 20; TEMP 36.6; O2SAT 98
[2022-08-13 20:30] LABS: Glucose, Whole Blood 208 mg/dL (60-115)
[2022-08-13] MEDS: Atorvastatin Calcium 20 MG TABLET PO (20:52)
[2022-08-13] MEDS: Doxazosin Mesylate 2 MG TABLET 4 MG PO (20:52)
[2022-08-13] MEDS: traMADoL HCL 50 MG TABLET PO (21:05)
[2022-08-14] MEDS: 0.9 % Sodium Chloride Flush 3 ML SYRINGE IVFLUSH ×2 (01:23→08:22)
--- NOTE | 2022-08-14 02:35 | PC.NURSE ---
Assumed care at 15:00. Patient alert, oriented x4, vague at times, seems to possibly . Patient reported right lower quadrant abdominal pain 5/10 this afternoon. MD notified, as patient requested something stronger than tylenol, per MD, give heat pack to site, as opioids would constipate patient worse. Patient consented to try heat pack and tylenol, with no effect on pain, followup assessment with continued pain 5/10 at right lower abdominal quadrant. MD notified, new order for one time ultram, administered with good effect. Patient's also reported patient has history of appendectomy. Patient with known severe constipation and no BM today. Patient with loya per urology, voiding concentrated nonbloody lyn urine, with delayed resolution of DEON, and nephrology had recommended urology to follow-up and see patient.
[2022-08-14 02:54] VITALS: BP 110/55; PULSE 93; RESP 19; TEMP 36.1; O2SAT 98
[2022-08-14] MEDS: Omeprazole 40 MG CAPSULE.DR PO (05:41)
[2022-08-14 06:54] LABS: Glucose, Whole Blood 191 mg/dL (60-115)
[2022-08-14 06:55] LABS: Anion Gap 13 (12-20); Blood Urea Nitrogen 49 mg/dL (9-16); Calcium 7.8 mg/dL (8.4-10.2); Carbon Dioxide 19 mmol/L (22-29); Chloride 109 mmol/L (96-108); Creatinine Clr Calc Pharmacy 19.3; Estimated Glomerular Filt Rate 20; Glucose Random 103 mg/dL (60-115); Potassium 3.8 mmol/L (3.3-5.1); Sodium 137 mmol/L (135-145)
[2022-08-14 07:08] LABS: Glucose, Whole Blood 116 mg/dL (60-115)
[2022-08-14 07:24] VITALS: BP 115/60; PULSE 93; RESP 18; TEMP 36.8; O2SAT 98
[2022-08-14 08:08] VITALS: BP 115/60; PULSE 93; O2SAT 98
[2022-08-14] MEDS: Finasteride 5 MG TABLET PO (08:22)
[2022-08-14] MEDS: glipiZIDE 5 MG TABLET 2.5 MG PO (08:22)
[2022-08-14] MEDS: Empagliflozin 10 MG TABLET PO (08:22)
[2022-08-14] MEDS: Sodium Bicarbonate 650 MG TABLET PO ×2 (08:22→14:23)
[2022-08-14] MEDS: Docusate Sodium 100 MG CAPSULE PO (08:22)
[2022-08-14] MEDS: Cholecalciferol (Vitamin D3) 25 MCG TABLET 50 MCG PO (08:22)
[2022-08-14] MEDS: Nystatin Powder 15 GM BOTTLE 1 APPL TOPICAL (08:24)
[2022-08-14 11:28] LABS: Glucose, Whole Blood 194 mg/dL (60-115)
[2022-08-14] MEDS: Insulin Lispro 100 UNIT/ML 3 ML VIAL SUBCUT (11:48)
--- NOTE | 2022-08-14 11:59 | P.DS_ITS ---
DS: Providers Provider Date of Service: 08/14/22 Date of admission: 08/01/22 04:39 Primary care physician: RADHA Bonilla Consults: 08/01/22 04:37 Consult to Gastroenterology Routine Consulting Provider: Tera Velazquez Reason for consultation: gi bleed Has provider been notified: No Consult to Urology Routine Consulting Provider: Kit Schneider Reason for consultation: gross hematuria Has provider been notified: No 08/01/22 07:16 Consult to Infectious Diseases Routine Consulting Provider: Elba Quiros Reason for consultation: OStemyelitis Has provider been notified: No Consult to Vascular Surgery Routine Consulting Provider: [facility] Reason for consultation: recent SFA atherectomy Has provider been notified: No 08/01/22 08:02 Consult to Nephrology Routine Consulting Provider: [facility] Reason for consultation: deon/ckd, retention DS: Diagnosis Discharge Diagnosis (1) DEON (acute kidney injury): Status: Resolved (2) CKD (chronic kidney disease) stage 3, GFR 30-59 ml/min: Status: Acute DS: Summary Hospital Course Hospital Course: [address] [id number] Internal Med History&Physical Signed History of presenting illness: Date of Service: 08/01/22 Chief Complaint:? hematuria ?any year old male with past medical history of type 2 diabetes, diastolic heart failure history of CKD stage 3, diabetic foot ulcer follows with Podiatry, history of heart block, HTN, HLD, history of urinary retention, comes into the hospital with complaints of suprapubic pain, urinary retention.? And blood in the urine.? started around 19:00, which started with difficulty urinating came a he has small amount of bloody urine, then developed suprapubic pain. ?patient denies any melena, hematochezia, no hematemesis, hemoptysis, ? Of note patient was admitted to the hospital at the end of June and discharged on 07/18 after being evaluated for chronic right foot diabetic foot ulcer with cellulitis, patient was discharged on IV ertapenem for 6 weeks.? He also had right superficial femoral artery arthroplasty and was started on Plavix. patient? denies having any chest pain, no shortness of breath, no lower extremity edema.? On arrival to the ED patient hemodynamically stable Labs are significant for? WBC count of 14, hemoglobin of 9.0 with a baseline around 11, hematocrit of 26.9, creatinine of 3.5 with a baseline of? 1.5, UA positive for nitrites, leukocyte Estrace, WBC ?Cao catheter was placed, patient has gross hematuria, patient will be admitted for further managed. Hospital course: 81-year-old male with past medical history of acute osteomyelitis recently discharged from the hospital on 6 weeks of ertapenem, as well as peripheral vascular disease status post SFA atherectomy earlier this month, was to be on Plavix and aspirin for 6 months presents to the hospital with gross hematuria, as well as positive stool occult.? Upper endoscopy negative for origin of bleeding. 1.Acute gross hematuria secondary to malignant bladder mass, patient admitted to medical floor treated with CBI and 6 units of PRBC, aspirin and Plavix was held that was recently started due to SFA atherectomy, patient underwent cystoscopy by Urology with evacuation of bladder clots, fulguration and bladder biopsy of irregular bladder lesion right lateral wall near bladder neck, biopsy report is pending,hematuria resolved,continue Cao catheter, repeat hematocrit is stable. 2. Acute GI bleed (occult positive on admission),s/p EGD 08/02 with mild gastric erythema and non-bleeding AVMs, no bleeding seen in the UGI- anemia thought r/t to persistent hematuria, continue omeprazole po 3.DEON on CKD3,-creatinine remains elevated, as per Nephrology etiology consistent with obstructive uropathy and question ischemic ATN, s/p cystoscopy with evacuation of blood clots and bladder biopsy,?CT scan showed??left hydronephrosis and UPJ obstruction, left renal stone and question focal bladder wall thickening along the dome and right lateral bladder wall,?bicarb improving, avoid nephrotoxin, will need continued urological evaluation upon discharge, follow up on [facility] 4.Acute osteomyelitis (wound cultures showed strep viridans/MSSA)-recommend to continue ertapenem x6 weeks since 07/16 (end date 08/30),continue wound care as before. 5.DMII continue Jardiance and Trulicity, glipizide held due to acute kidney injury follow blood sugar and diabetic diet 6. Constipation continue MiraLax 7. peripheral arterial disease during last hospitalization seen by Dr. Land and underwent successful atherectomy and plasty of right SFA was supposed to be on aspirin and Plavix for 6 minutes duration, recommend outpatient follow-up with Dr. Land in next 2-3 weeks 8. Toxic metabolic encephalopathy related to DEON resolved ?? ? Time Spent with Patient Time attestation: Total time managing care of this patient today ____ minutes. Discharge coordination time: Greater than 30 minutes Quality: Safe Use of Opioids Does Pt have an Active Cancer Diagnosis on the Problem List?: No Quality: Stroke Does the patient have a stroke diagnosis?: No Physical Exam Vital Signs: Vital Signs: Last Vital Signs Temp 98.2 F 08/14/22 07:24 Pulse 93 08/14/22 08:08 Resp 18 08/14/22 07:24 BP 115/60 08/14/22 08:08 Pulse Ox 98 08/14/22 08:08 O2 Del Method Room Air 08/14/22 07:24 O2 Flow Rate 1.5 08/07/22 10:30 BMI result Body Mass Index 26.2 Const: Other: Gen:? Awake alert in no acute distress HEENT: sclera anicteric, moist mucus membranes Neck: supple Lungs: clear to auscultation bilaterally Heart: regular rate and rhythm, no murmurs Abd: soft, non-tender, non-distended mild pitting edema noted bilateral thighs laterally Ext: no edema Skin: warm/well-perfused, right foot plantar ulcer base of 1st toe, dressing in place no drainage Neuro: alert and oriented x3, no focal findings Psych: appropriate affect DS: Data Data Completed and Pending Completed studies during hospitalization [Text1]: Procedures Dilation of Right Femoral Artery using Drug-Coated Balloon, Percutaneous Approach (07/11/22) Excision of Left Foot Subcutaneous Tissue and Fascia, Open Approach (06/11/20) Excision of Right Foot Subcutaneous Tissue and Fascia, Open Approach (07/11/22) Extirpation of Matter from Right Femoral Artery, Percutaneous Approach (07/11/22) Insertion of Infusion Device into Superior Vena Cava, Percutaneous Approach (07/11/22) Insertion of Pacemaker Lead into Right Atrium, Percutaneous Approach (11/25/20) Insertion of Pacemaker Lead into Right Ventricle, Percutaneous Approach (11/25/20) Insertion of Pacemaker, Dual Chamber into Chest Subcutaneous Tissue and Fascia, Open Approach (11/25/20) Ultrasonography of Superior Vena Cava, Guidance (07/11/22) Pending studies at discharge: Pending at discharge 08/07/22 08:55 Surgical [PTH] Routine Labs on day of discharge: Laboratory Results - last 24 hr 08/03/22 08/11/22 08/13/22 19:50 11:22 16:00 Sodium Potassium Chloride Carbon Dioxide Anion Gap BUN Creatinine Estim Creat Clear Calc Estimated GFR POC Glucose TNP 191 H 198 H Random Glucose Calcium 08/13/22 08/14/22 08/14/22 19:48 05:24 06:59 Sodium 137 Potassium 3.8 Chloride 109 H Carbon Dioxide 19 L Anion Gap 13 BUN 49 H Creatinine 3.04 H Estim Creat Clear Calc 19.3 Estimated GFR 20 POC Glucose 208 H 116 H Random Glucose 103 Calcium 7.8 L 08/14/22 11:25 Sodium Potassium Chloride Carbon Dioxide Anion Gap BUN Creatinine Estim Creat Clear Calc Estimated GFR POC Glucose 194 H Random Glucose Calcium Discharge Plan Discharge Anticipated Discharge Date/Time: 08/14/22 11:49 Patient Disposition: Home Health Service Discharge Diagnosis: Acute hematuria Acute GI bleed Acute on chronic kidney disease stage 3 Osteomyelitis Referrals: [facility] [Other] - 1 Week [facility] [Other] - 1 Week Gene Eaton PA [Primary Care Provider] - 1 Week Discharge Medications: New polyethylene glycol 3350 17 gram Powder In Packet 17 g PO DAILY Qty: 30 0RF sodium bicarbonate 650 mg Tablet 650 mg PO TID Qty: 90 0RF finasteride 5 mg Tablet 5 mg PO DAILY Qty: 30 0RF doxazosin [Cardura] 4 mg tablet 4 mg PO BEDTIME Qty: 30 0RF Continued Jardiance 10 mg tablet 10 mg PO DAILY Trulicity 4.5 mg/0.5 mL pen injector 4.5 mg subcut WE cholecalciferol (vitamin D3) 50 mcg (2,000 unit) Tablet 50 mcg PO DAILY ertapenem 1 gram recon soln 1 g IV DAILY Qty: 35 0RF simvastatin 40 mg tablet 40 mg PO BEDTIME (DME) OneTouch Verio test strips Strip See Rx Instructions Not Applicable TID Qty: 10 Rx Instructions: As directed pantoprazole 20 mg tablet,delayed release (DR/EC) 20 mg PO DAILY Changed metoprolol tartrate 25 mg tablet 12.5 mg PO BID Qty: 30 0RF Discontinued glipizide 2.5 mg tablet extended release 24hr 2.5 mg PO DAILY clopidogrel 75 mg Tablet 75 mg PO DAILY Qty: 30 0RF sodium bicarbonate 650 mg Tablet 650 mg PO BID Qty: 60 0RF aspirin 81 mg Tablet,Chewable 81 mg PO DAILY Qty: 30 0RF Discharge Orders: Discharge Order (Routine); Ordered 08/14/22 Ordered By: Juany Nation Diet: Diabetic diet Activity on Discharge: As tolerated Stand Alone Forms: Patient Portal Discharge page Care Plan Goals: Take IV ertapenem 1 g daily via PICC line end date August 30 Weekly labs while on antibiotic CBC, BMP, CRP Avoid NSAIDs and all nephrotoxins Follow-up with urology call for appointment Follow-up with Dr. Quiros in 2 weeks call for appointment Follow-up with Nephrology Dr. Dwyre call for appointment Continue foot dressing as before Dose of metoprolol reduced to 12.5 mg b.i.d. Dose of soda bicarb increased to 1 tablet 3 times a day Stop aspirin and Plavix due to hematuria resume as per Urology and Dr. Land from vascular surgery Health Concerns: Diabetes mellitus follow diabetic diet monitor blood sugars Urinary retention Plan of Treatment: Outpatient follow-up with Dr. Land call for appointment in 2-3 weeks, follow-up with primary care physician Assessment: as above
--- NOTE | 2022-08-14 13:02 | PM.PNNEP ---
Subjective Subjective Date of Service: 08/14/22 Interval history: Events noted; All recent data reviewed Physical Exam Vital Signs: Vital Signs: Last Vital Signs Temp 98.2 F 08/14/22 07:24 Pulse 93 08/14/22 08:08 Resp 18 08/14/22 07:24 BP 115/60 08/14/22 08:08 Pulse Ox 98 08/14/22 08:08 O2 Del Method Room Air 08/14/22 07:24 O2 Flow Rate 1.5 08/07/22 10:30 BMI result Body Mass Index 26.2 Const: General: comfortable Eyes: EOM: EOMs intact bilaterally Neck: Neck: Yes supple Resp: Auscultation: diminished lung sounds Cardio: Rate: regular rate GI: Palpation (GI): Soft to palpation Skin: General skin exam: no rashes or lesions noted Neuro: General: moves all extremities Objective Data Labs 08/13/22 05:47 08/14/22 05:24 Labs: Laboratory Results - last 24 hr 08/03/22 08/11/22 08/13/22 19:50 11:22 16:00 Sodium Potassium Chloride Carbon Dioxide Anion Gap BUN Creatinine Estim Creat Clear Calc Estimated GFR POC Glucose TNP 191 H 198 H Random Glucose Calcium 08/13/22 08/14/22 08/14/22 19:48 05:24 06:59 Sodium 137 Potassium 3.8 Chloride 109 H Carbon Dioxide 19 L Anion Gap 13 BUN 49 H Creatinine 3.04 H Estim Creat Clear Calc 19.3 Estimated GFR 20 POC Glucose 208 H 116 H Random Glucose 103 Calcium 7.8 L 08/14/22 11:25 Sodium Potassium Chloride Carbon Dioxide Anion Gap BUN Creatinine Estim Creat Clear Calc Estimated GFR POC Glucose 194 H Random Glucose Calcium Microbiology Microbiology Results: Microbiology 08/01/22 08:08 Blood - Venous Blood Culture - Final No growth after 5 days. 08/01/22 08:08 Blood - Venous Blood Culture - Final No growth after 5 days. 08/01/22 Unknown Urine Catheterized - Straight Catheter Urine Culture - Final No growth. Procedures Date of Service Date of Service: 08/14/22 Assessment & Plan Assessment and plan (1) DEON (acute kidney injury): Status: Acute Assessment and Plan: Non-Oliguric DEON; peak Scr 4.4 with grad improvement but still not back to BSL ( 1.5-2.0) Etiol c/w Obs Uropathy with possible tubular injury s/p cystoscopy with evacuation of blood clots and bladder biopsy CT scan showed??left hydronephrosis and UPJ obstruction, left renal stone and question focal bladder wall thickening along the dome and right lateral bladder wall Continue current supportive care for now Progress Note: Quality Stroke Does the patient have a stroke diagnosis?: No
== END 2022-08-14 15:31 | disposition home health service (06) | DRG 668 ==
LOC: HO.ED 01:58 → HO.EDOVER 04:43 → HO.S3 07:30
PROVIDERS: Anesthesiology; Family Medicine; Hospitalist; Internal Medicine Gastroenterology; Nurse Practitioner Acute Care; Physician Assistant Medical; Urology; Admitting Provider Internal Medicine; Emergency Provider Emergency Medicine Emergency Medical Services; PCP Physician Assistant Medical; Visit Provider Hospitalist
PROC: 0DJ08ZZ Inspection of Upper Intestinal Tract, Via Natural or Artificial Opening Endoscopic (ICD-10-PCS; CPT 43235; principal; 2022-08-02 13:40)
PROC: 0T5B8ZZ Destruction of Bladder, Via Natural or Artificial Opening Endoscopic (ICD-10-PCS; principal; 2022-08-07 07:30)
PROC: 0T5B8ZZ Destruction of Bladder, Via Natural or Artificial Opening Endoscopic (ICD-10-PCS; 2022-08-07 07:30)
DX: C67.2 Malignant neoplasm of lateral wall of bladder (principal); G92.8 Other toxic encephalopathy; K31.811 Angiodysplasia of stomach and duodenum with bleeding; N17.0 Acute kidney failure with tubular necrosis; I13.0 Hypertensive heart and chronic kidney disease with heart failure and stage 1 through stage 4 chronic kidney disease, or unspecified chronic kidney disease; I50.32 Chronic diastolic (congestive) heart failure; D62 Acute posthemorrhagic anemia; M86.171 Other acute osteomyelitis, right ankle and foot; E87.20 Acidosis, unspecified; N17.9 Acute kidney failure, unspecified; N13.2 Hydronephrosis with renal and ureteral calculous obstruction; L97.819 Non-pressure chronic ulcer of other part of right lower leg with unspecified severity; R31.0 Gross hematuria; E11.69 Type 2 diabetes mellitus with other specified complication; R33.9 Retention of urine, unspecified; I95.9 Hypotension, unspecified; D69.6 Thrombocytopenia, unspecified; D63.0 Anemia in neoplastic disease; N18.30 Chronic kidney disease, stage 3 unspecified; Z87.891 Personal history of nicotine dependence; Z88.8 Allergy status to other drugs, medicaments and biological substances; Z79.02 Long term (current) use of antithrombotics/antiplatelets; Z79.899 Other long term (current) drug therapy; E11.51 Type 2 diabetes mellitus with diabetic peripheral angiopathy without gangrene; I70.238 Atherosclerosis of native arteries of right leg with ulceration of other part of lower leg
CPT/HCPCS: 36415; 74176; 76775; 80048; 80053; 80076; 81001; 82272; 82947; 83605; 83690; 84100; 84300; 85014; 85018; 85025; 85027; 85610; 85730; 86850; 86900; 86901; 86923; 87040; 87086; 88304; 88305; 88307; 88341; 88342; 88344; 93005; 97116; 97162; 99285; C1758; J0690; J2185; J3010; P9016

== ENCOUNTER 2022-08-22 15:54 | Outpatient (REF) | payer MEDICARE, SELFPAY ==
[2022-08-22 16:03] LABS: MANUAL DIFF FLAG NO
[2022-08-22 16:40] LABS: Basophils Percent Auto 0.4 % (0-2); Eosinophils Absolute Auto 0.1 X10*3/uL (0.0-0.4); Eosinophils Percent Auto 1.2 % (0-4); Hematocrit 27.1 % (42.0-52.0); Hemoglobin 8.6 g/dl (14.0-18.0); Imm Gran Abs Auto 0.04 X10*3/uL (0.00-0.03); Imm Gran Pct Auto 0.4 % (0.0-0.4); Lymphocytes Absolute Auto 0.3 X10*3/uL (1.2-4.9); Lymphocytes Percent Auto 3.7 % (20-40); Mean Corpuscular HGB Conc 31.7 g/dl (31.0-36.0); Mean Corpuscular Hemoglobin 29.8 pg (27.0-33.0); Mean Corpuscular Volume 93.8 fL (80.0-98.0); Mean Platelet Volume 11.2 fL (9.4-12.4); Monocytes Absolute Auto 0.5 X10*3/uL (0.1-1.2); Monocytes Percent Auto 5.3 % (2-11); Neutrophils Absolute Auto 7.9 x10*3/uL (2.0-8.3); Platelet Count 225 X10*3/uL (160-400); Red Blood Count 2.89 X10*6/uL (4.60-5.80); Red Cell Distribution Width 14.6 % (11.0-16.0); White Blood Count 8.9 X10*3/uL (4.8-10.8)
[2022-08-22 18:04] LABS: Anion Gap 15 (12-20); Blood Urea Nitrogen 40 mg/dL (9-16); C Reactive Protein 14.02 mg/dL (< or = 0.50); Calcium 8.1 mg/dL (8.4-10.2); Carbon Dioxide 21 mmol/L (22-29); Chloride 105 mmol/L (96-108); Estimated Glomerular Filt Rate 20; Glucose Random 342 mg/dL (60-115); Potassium 4.4 mmol/L (3.3-5.1); Sodium 137 mmol/L (135-145)
== END 2022-08-22 15:55 | disposition home or self-care (01) ==
LOC: HO.HVNA 15:54
PROVIDERS: Visit Provider Internal Medicine
DX: L03.115 Cellulitis of right lower limb (principal); M86.171 Other acute osteomyelitis, right ankle and foot
CPT/HCPCS: 36415; 80048; 85025; 86140

== ENCOUNTER → 2022-08-24 13:52 | Outpatient (BNVA) | payer MEDICARE, SELFPAY | PROVIDERS: PCP Physician Assistant Medical; Visit Provider Internal Medicine | DX: E11.621 Type 2 diabetes mellitus with foot ulcer (principal); L97.509 Non-pressure chronic ulcer of other part of unspecified foot with unspecified severity; E11.69 Type 2 diabetes mellitus with other specified complication; M86.9 Osteomyelitis, unspecified; L03.115 Cellulitis of right lower limb | CPT/HCPCS: 99212 ==

== ENCOUNTER 2022-08-29 13:00 | Outpatient (REF) | payer MEDICARE, SELFPAY ==
[2022-08-29 14:22] LABS: CDiff Gene PCR POSITIVE (Negative)
[2022-08-29 15:06] LABS: CDIFF Internal ctrl Dots and bkg OK (V); CDiff Toxin Negative (Negative)
== END 2022-08-29 13:01 | disposition home or self-care (01) ==
LOC: HO.HVNA 13:00
PROVIDERS: Visit Provider Physician Assistant Medical
DX: R19.7 Diarrhea, unspecified (principal)
CPT/HCPCS: 87324; 87493

== ENCOUNTER → 2022-08-30 10:44 | Outpatient (BNVA) | payer MEDICARE, SELFPAY | PROVIDERS: PCP Physician Assistant Medical; Visit Provider Surgery Vascular Surgery | DX: E11.621 Type 2 diabetes mellitus with foot ulcer (principal); L97.519 Non-pressure chronic ulcer of other part of right foot with unspecified severity | CPT/HCPCS: 99212 ==

== ENCOUNTER 2022-09-03 08:38 | Inpatient (IN) | payer MEDICARE, SELFPAY ==
--- NOTE | 2022-08-31 12:28 | HO.ANESPROP2 ---
HPI - Anesthesia Eval Consult details Narrative: 81yo M for Right Great Toe Amputation Pacer in situ. [place] [facility]. Last office eval 03/2022 after pacer insertion for 2:1 heart block. Stable per cardiology [facility] [place] 08/01- with hematuria (r/t bladder mass), GIB. Recently started plavix/asa by vascular. s/p cysto, hematoma evac 08/07/22 with GA-LMA 4 PMFSH Active Problems Active Problems: All Active Problems (Updated 08/24/22 @ 17:01 by Elba Quiros MD) DEON (acute kidney injury) (Acute) BPH loc w urin obs/LUTS (Acute) Hydronephrosis (Acute) Iron deficiency anemia (Acute) Heme positive stool (Acute) Cao catheter problem (Acute) Encounter for interrogation of cardiac pacemaker (Acute) Symptomatic bradycardia (Acute) Mitral annular calcification (Acute) Diabetic foot ulcer (Acute) Cellulitis of foot, right (Acute) Diabetic osteomyelitis (Acute) Metabolic acidosis (Acute) Bladder mass (Acute) Anemia (Acute) Acute kidney injury superimposed on CKD (Acute) Ulcer of right 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 (Acute) PAD (peripheral artery disease) (Acute) Infection of right foot (Acute) Acute osteomyelitis (Acute) Heart block (Acute) Past Medical History Medical History Acute osteomyelitis Back pain CKD (chronic kidney disease) stage 3, GFR 30-59 ml/min Congestive heart failure with LV diastolic dysfunction, NYHA class 3 Decubitus ulcer, heel Diabetes mellitus Gram-negative bacteremia H/O cardiac pacemaker Heart block History of COVID-19 Hyperlipidemia Hypertension Infection of right foot Iron deficiency anemia PAD (peripheral artery disease) Type 2 diabetes mellitus with unspecified complications Ulcer of left heel Ulcer of right 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 Urinary retention Family History Family History Brother Testicular cancer Family history of problems with anesthesia: No Surgical History Surgical History History of atherectomy History of back surgery History of esophagogastroduodenoscopy History of left hip replacement Hx of cataract extraction Hx of colonoscopy History of Problems with Anesthesia: No Social History Social History Household Members: Spouse Household Members Other:: 2 Housing: House Do you presently have visiting nurse or other home services: Yes Alcohol intake: former Patient Tobacco Use Status: Former Tobacco user Quit Date: 15 years Tobacco use type: Cigarette Use of substances other than those prescribed or required for medical reasons: No Currently Displaying Signs/Symptoms of Drug Intoxication Withdrawal: No Have you been hit, kicked, punched, or otherwise hurt by someone within the past year? If so, by whom?: No Do you feel safe in your current relationship?: No Is there a partner from a previous relationship who is making you feel unsafe now?: No Are you made to feel afraid or neglected: No Are you DNR?: No Advance Directives: Yes Advance Directives on File: Yes Advance Directives Date on File: 07/12/22 Do you have thoughts of harming others: None Do you have a plan to hurt others: No Plan Recently lost weight without trying: No Eating poorly because of decreased appetite: No Nutrition Risks: No Nutritional Risk Poor oral hygiene: No service: No Current occupational status: retired [employer] Allergies Allergy/AdvReac Type Severity Reaction Status Date / Time lisinopril [LISINOPRIL] Allergy Severe ANGIOEDEMA Verified 08/30/22 10:56 Home Medications Medication Instructions Recorded Confirmed Last Taken Type simvastatin 40 mg tablet 40 mg PO BEDTIME 03/17/20 09/03/22 09/02/22 History blood sugar diagnostic (OneTouch #10 ea 11/11/20 09/03/22 09/03/22 History Verio test strips) pantoprazole 20 mg tablet,delayed 20 mg PO DAILY 11/11/20 09/03/22 09/03/22 History release cholecalciferol (vitamin D3) 50 50 mcg PO DAILY 07/11/22 09/03/22 09/03/22 History mcg (2,000 unit) tablet empagliflozin 10 mg tablet 10 mg PO DAILY 07/11/22 09/03/22 09/03/22 History (Jardiance) Exam Exam Date and Time: August 31, 2022 1228 Narrative Narrative: EKG 08/01/22 Vent. Rate : 088 BPM ? ? Atrial Rate : 088 BPM ?? P-R Int : 158 ms? QRS Dur : 186 ms ? ? QT Int : 464 ms ? ? ? P-R-T Axes : 010 -54 098 degrees ?? QTc Int : 561 ms ? Atrial-sensed ventricular-paced rhythm Abnormal ECG When compared with ECG of 25-NOV-2020 15:03, Electronic ventricular pacemaker has replaced Sinus rhythm Vent. rate has increased BY? 48 BPM Cardiac Device Check Details: Pacemaker interrogated today.? Dual-chamber device, programmed in DDD mode.? Battery status more than 7 years.? Normal lead parameters.? Minimal atrial pacing.? Ventricular pacing greater than 99%.? PMT episodes noted.? No atrial arrhythmias.? PVARP has been increased from 275-325 milliseconds.? Overall, normal device function. Per cardiology office visit 03/2022 Normally functioning pacemaker.? Can be followed remotely.? Myocardial perfusion imaging study from [facility] reported to be normal with normal gated LVEF.? Echocardiogram with preserved LVEF, 60-65%.? There is severe mitral annular calcification.? Mild aortic valve calcification.? Mildly dilated atria. Assessment and Plan Assessment Anesthesia Assessment: Chart Reviewed Final Anesthetic Review Family History of Problems with Anesthesia: No History of Problems with Anesthesia: No
[2022-09-03] VITALS (12 sets, daily range): BP systolic 79–127; BP diastolic 4–59; PULSE 75–98; RESP 16–18; TEMP 35.9–36.4; O2SAT 96–99; BMI 28.8
[2022-09-03 09:03] LABS: Hematocrit 26.2 % (42.0-52.0); Hemoglobin 8.3 g/dl (14.0-18.0); Mean Corpuscular HGB Conc 31.7 g/dl (31.0-36.0); Mean Corpuscular Hemoglobin 28.6 pg (27.0-33.0); Mean Corpuscular Volume 90.3 fL (80.0-98.0); Mean Platelet Volume 10.6 fL (9.4-12.4); Platelet Count 271 X10*3/uL (160-400); Red Cell Distribution Width 14.9 % (11.0-16.0); White Blood Count 12.1 X10*3/uL (4.8-10.8)
[2022-09-03 09:09] LABS: INTERNATIONAL NORM RATIO 1.2 (0.9-1.1); Prothrombin Time 13.6 SEC (10.0-13.1)
[2022-09-03] MEDS: Lactated Ringers 1,000 ML 50 ML IVCONT (09:28)
[2022-09-03 09:40] LABS: Anion Gap 15 (12-20); Blood Urea Nitrogen 45 mg/dL (9-16); Calcium 8.8 mg/dL (8.4-10.2); Carbon Dioxide 22 mmol/L (22-29); Chloride 103 mmol/L (96-108); Creatinine Clr Calc Pharmacy 20.3; Estimated Glomerular Filt Rate 19; Glucose Random 351 mg/dL (60-115); Potassium 4.2 mmol/L (3.3-5.1); Sodium 136 mmol/L (135-145)
--- NOTE | 2022-09-03 10:12 | HO.ANESPROP2 ---
[facility], [facility] Active Problems Active Problems: All Active Problems (Updated 08/24/22 @ 17:01 by Elba Quiros MD) DEON (acute kidney injury) (Acute) BPH loc w urin obs/LUTS (Acute) Hydronephrosis (Acute) Iron deficiency anemia (Acute) Heme positive stool (Acute) Cao catheter problem (Acute) Encounter for interrogation of cardiac pacemaker (Acute) Symptomatic bradycardia (Acute) Mitral annular calcification (Acute) Diabetic foot ulcer (Acute) Cellulitis of foot, right (Acute) Diabetic osteomyelitis (Acute) Metabolic acidosis (Acute) Bladder mass (Acute) Anemia (Acute) Acute kidney injury superimposed on CKD (Acute) Ulcer of right 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 (Acute) PAD (peripheral artery disease) (Acute) Infection of right foot (Acute) Acute osteomyelitis (Acute) Heart block (Acute) Past Medical History Medical History Acute osteomyelitis Back pain CKD (chronic kidney disease) stage 3, GFR 30-59 ml/min Congestive heart failure with LV diastolic dysfunction, NYHA class 3 Decubitus ulcer, heel Diabetes mellitus Gram-negative bacteremia H/O cardiac pacemaker Heart block History of COVID-19 Hyperlipidemia Hypertension Infection of right foot Iron deficiency anemia PAD (peripheral artery disease) Type 2 diabetes mellitus with unspecified complications Ulcer of left heel Ulcer of right 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 Urinary retention Family History Family History Brother Testicular cancer Family history of problems with anesthesia: No Surgical History Surgical History History of atherectomy History of back surgery History of esophagogastroduodenoscopy History of left hip replacement Hx of cataract extraction Hx of colonoscopy History of Problems with Anesthesia: No Social History Social History Household Members: Spouse Household Members Other:: 2 Housing: House Do you presently have visiting nurse or other home services: Yes ([facility]) Alcohol intake: former Patient Tobacco Use Status: Former Tobacco user Tobacco use type: Cigarette Use of substances other than those prescribed or required for medical reasons: No Are you DNR?: No Advance Directives: Yes Advance Directives on File: Yes Advance Directives Date on File: 07/12/22 service: No Current occupational status: retired Meds Allergies Allergy/AdvReac Type Severity Reaction Status Date / Time lisinopril [LISINOPRIL] Allergy Severe ANGIOEDEMA Verified 08/30/22 10:56 Active Medications: Current Medications Lactated Ringer's (Lr) 1,000 mls @ 50 mls/hr IVCONT .Q20H JIL Last Admin: 09/03/22 09:28 Dose: 50 mls/hr Home Medications Medication Instructions Recorded Confirmed Last Taken Type simvastatin 40 mg tablet 40 mg PO BEDTIME 03/17/20 09/03/22 09/02/22 History blood sugar diagnostic (OneTouch #10 ea 11/11/20 09/03/22 09/03/22 History Verio test strips) pantoprazole 20 mg tablet,delayed 20 mg PO DAILY 11/11/20 09/03/22 09/03/22 History release cholecalciferol (vitamin D3) 50 50 mcg PO DAILY 07/11/22 09/03/22 09/03/22 History mcg (2,000 unit) tablet empagliflozin 10 mg tablet 10 mg PO DAILY 07/11/22 09/03/22 09/03/22 History (Jardiance) Exam Exam Date and Time: September 03, 2022 1012 Height,Weight and Vital Signs: Height 5 ft 9 in Weight 88.451 kg Last Vital Signs Temp 97.0 F 09/03/22 08:48 Pulse 80 09/03/22 08:48 Resp 18 09/03/22 08:48 BP 79/47 L 09/03/22 08:48 Pulse Ox 98 09/03/22 08:48 O2 Del Method Room Air 09/03/22 08:48 Pertinent Lab Results Pertinent Lab Results: Laboratory Tests 09/03/22 09/03/22 09/03/22 08:50 08:50 08:50 WBC 12.1 H RBC 2.90 L Hgb 8.3 L Hct 26.2 L MCV 90.3 MCH 28.6 MCHC 31.7 RDW 14.9 Plt Count 271 MPV 10.6 Absolute Nucleated RBC 0.000 Nucleated RBC % (auto) 0.0 PT 13.6 H INR 1.2 H APTT 27.0 Sodium 136 Potassium 4.2 Chloride 103 Carbon Dioxide 22 Anion Gap 15 BUN 45 H Creatinine 3.18 H Estim Creat Clear Calc 20.3 Estimated GFR 19 Random Glucose 351 H* Calcium 8.8 D Airway Mallampati Class: II TM Dist: >3cm Neck ROM: Full Heart: RRR Lungs: CTA Assessment and Plan Final Anesthetic Review Family History of Problems with Anesthesia: No History of Problems with Anesthesia: No ASA Class: III Final Preanesthetic Review: Meds/Allgs Chart Reviewed, Consent Obtained/Reviewed and Anes Risks/Benef Reviewed Patient Risk: Intermediate Procedure Risk: Low Anesthetic Plan Anesthetic Plan: GA Disposition: Standard PACU
[2022-09-03] MEDS: Insulin Lispro 100 UNIT/ML 3 ML VIAL 8 UNIT SUBCUT (10:52)
--- NOTE | 2022-09-03 12:27 | W.PM.OPN ---
Operative Note Operative Note Date of Service: 09/03/22 Narrative: Operative note by [facility] Preoperative diagnosis: Nonhealing right great toe diabetic foot ulcer Postoperative diagnosis: Same Procedure: Right great toe ray amputation Surgeon:Gato Land M.D. Automobile Salesman: Non Anesthesia: General Specimens: 1 Drains: None Estimated blood loss: 50 mL Indications: Complex 81-year-old gentleman with nonhealing diabetic foot ulcer. He has had multiple trials of conservative measures which have failed and now presents for amputation. The patient has signed the informed consent after reviewing risks, complications, benefits, and alternatives previously discussed with the patient. The patient was given the opportunity to ask any additional questions or voice any concerns. All questions were answered to the patient's satisfaction. Procedure in detail: Patient was brought to the operating room prior to which a time-out was called for patient identification and site verification. Right foot was prepped and draped in standard set truncal fashion. A curvilinear incision was carried out over the great toe down over the metatarsal head. Once this was done using electrocautery we got down to the metatarsal head and the toe essentially just disintegrated and was removed off. There was residual portion of the metatarsal head which was already fractured. We resected this back and using a power so we transected across the metatarsal. Once this was done we used a file rasp to smooth down the bone. Electrocautery was used for hemostasis. We thoroughly irrigated out the wound. Deep layer was closed we using 2 0 poly Sorb in multiple layers and superficial layer with 2-0 nylon in a mattress fashion. The more proximal portion over the 2nd toe was left open as we would not be able to reapproximate this. We then placed alginate and a sterile dressing. At the end the case sponge instrument counts were correct. Patient tolerated the procedure well. Returned to recovery with stable vitals. This note is constructed using voice recognition software. While every effort has been made to ensure accuracy, solid waste division supervisor errors may have been included. Thank you for allowing me to participate in the care of your patient. Yours sincerely, Gato Land MD, FACS, R.P.V.I.
[2022-09-03] MEDS: oxyCODONE HCl Immed Release 5 MG TABLET PO (14:48)
[2022-09-03] MEDS: Sodium Bicarbonate 650 MG TABLET PO ×2 (14:48→20:48)
[2022-09-03] MEDS: 0.9 % Sodium Chloride 1,000 ML 80 ML IVCONT (14:49)
[2022-09-03] MEDS: 0.9 % Sodium Chloride Flush 3 ML SYRINGE IVFLUSH (15:32)
[2022-09-03 16:11] LABS: Glucose, Whole Blood 223 mg/dL (60-115)
--- NOTE | 2022-09-03 16:19 | P.CONIM_ITS ---
History of Present Illness Data of Consult Service Date: 09/03/22 Primary Care Provider: RADHA Bonilla HPI Reason for consult: medical management An 81 years old male with PMH of CKD, CHF, recent OM, DM, HTN , PAD among others presented to the hospital for elective surgical amputation of right great toe. Denies any fever, chills, pain, nausea, vomiting diarrhea. Reports other medical problems fairly controlled. Review of Systems Review of Systems: Yes all other systems are reviewed and are negative [facility] Medical History Acute osteomyelitis Back pain CKD (chronic kidney disease) stage 3, GFR 30-59 ml/min Congestive heart failure with LV diastolic dysfunction, NYHA class 3 Decubitus ulcer, heel Diabetes mellitus Gram-negative bacteremia H/O cardiac pacemaker Heart block History of COVID-19 Hyperlipidemia Hypertension Infection of right foot Iron deficiency anemia PAD (peripheral artery disease) Type 2 diabetes mellitus with unspecified complications Ulcer of left heel Ulcer of right 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 Urinary retention Family History Brother Testicular cancer Surgical History History of atherectomy History of back surgery History of esophagogastroduodenoscopy History of left hip replacement Hx of cataract extraction Hx of colonoscopy Social History Household Members: Spouse Household Members Other:: 2 Housing: House Do you presently have visiting nurse or other home services: Yes Alcohol intake: former Patient Tobacco Use Status: Former Tobacco user Quit Date: 15 years Tobacco use type: Cigarette Use of substances other than those prescribed or required for medical reasons: No Currently Displaying Signs/Symptoms of Drug Intoxication Withdrawal: No Have you been hit, kicked, punched, or otherwise hurt by someone within the past year? If so, by whom?: No Do you feel safe in your current relationship?: No Is there a partner from a previous relationship who is making you feel unsafe now?: No Are you made to feel afraid or neglected: No Are you DNR?: No Advance Directives: Yes Advance Directives on File: Yes Advance Directives Date on File: 07/12/22 Do you have thoughts of harming others: None Do you have a plan to hurt others: No Plan Recently lost weight without trying: No Eating poorly because of decreased appetite: No Nutrition Risks: No Nutritional Risk Poor oral hygiene: No service: No Current occupational status: retired Meds Allergies Allergy/AdvReac Type Severity Reaction Status Date / Time lisinopril [LISINOPRIL] Allergy Severe ANGIOEDEMA Verified 08/30/22 10:56 Active Medications: Current Medications Acetaminophen (Acetaminophen 325 Mg Tablet) 650 mg PO ONCE PRN PRN Reason: Pain, Mild (Pain Scale 1-3) Atorvastatin Calcium (Atorvastatin Calcium 20 Mg Tablet) 20 mg PO BEDTIME JIL Dextrose (Dextrose 50 % 25 Gm/50 Ml Syringe) 25 gm IVPUSH Q15M PRN; Protocol PRN Reason: per Hypoglycemia Standing Ord. Doxazosin Mesylate (Doxazosin Mesylate 2 Mg Tablet) 4 mg PO BEDTIME JIL; Protocol Empagliflozin (Empagliflozin 10 Mg Tablet) 10 mg PO DAILY JIL Finasteride (Finasteride 5 Mg Tablet) 5 mg PO DAILY [facility] Glucose (Glucose Gel 15 Gm Gel..Gram.) 15 gm PO Q15M PRN; Protocol PRN Reason: per Hypoglycemia Standing Ord. Sodium Chloride (Ns) 1,000 mls @ 80 mls/hr IVCONT .[id number] [facility] Last Admin: 09/03/22 14:49 Dose: 80 mls/hr Cefazolin Sodium 1 gm/ Sodium (Chloride) 50 mls @ 100 mls/hr IV Q8H [facility] Insulin Human Lispro (Insulin Lispro 100 Unit/Ml 3 Ml Vial) 0 unit SUBCUT QIDACHS [facility]; Protocol Metoprolol Tartrate (Metoprolol Tartrate 12.5 Mg Halftab) 12.5 mg PO BID [facility]; Protocol Morphine Sulfate (Morphine Sulfate 2 Mg/Ml Cartridge) 2 mg IVPUSH Q4H PRN; Protocol PRN Reason: Pain, Severe (Pain Scale 7-10) Oxycodone HCl (Oxycodone Hcl Immed Release 5 Mg Tablet) 5 mg PO Q4H PRN PRN Reason: Pain, Moderate(Pain Scale 4-6) Last Admin: 09/03/22 14:48 Dose: 5 mg Sodium Bicarbonate (Sodium Bicarbonate 650 Mg Tablet) 650 mg PO TID [facility] Last Admin: 09/03/22 14:48 Dose: 650 mg Sodium Chloride (0.9 % Sodium Chloride Flush 3 Ml Syringe) 3 ml IVFLUSH QSHIFT [facility] Last Admin: 09/03/22 15:32 Dose: 3 ml Vitamin D (Cholecalciferol (Vitamin D3) 25 Mcg Tablet) 50 mcg PO DAILY [facility] Home Medications Medication Instructions Recorded Confirmed Last Taken Type simvastatin 40 mg tablet 40 mg PO BEDTIME 03/17/20 09/03/22 09/02/22 History blood sugar diagnostic (OneTouch #10 ea 11/11/20 09/03/22 09/03/22 History Verio test strips) pantoprazole 20 mg tablet,delayed 20 mg PO DAILY 11/11/20 09/03/22 09/03/22 History release cholecalciferol (vitamin D3) 50 50 mcg PO DAILY 07/11/22 09/03/22 09/03/22 History mcg (2,000 unit) tablet empagliflozin 10 mg tablet 10 mg PO DAILY 07/11/22 09/03/22 09/03/22 History (Jardiance) Physical Exam Vital Signs and Narrative: Vital Signs: Last Vital Signs Temp 96.8 F 09/03/22 15:32 Pulse 75 09/03/22 15:32 Resp 18 09/03/22 15:32 BP 120/56 L 09/03/22 15:32 Pulse Ox 99 09/03/22 15:32 O2 Del Method Room Air 09/03/22 14:33 O2 Flow Rate 1 09/03/22 12:30 BMI result Body Mass Index 28.8 Const: Other: Constitutional : Awake, interactive, not in distress Neck : Normal inspection, Supple Cardiovascular : RRR, no JVP, no lower extremity edema Respiratory : good bilateral air entry, no crackles, wheezes or rhonchi Gastrointestinal: soft, lax, Normal bowel sounds, Non tender Skin : Warm, Dry, Rt foot in dressing, no erythema or drainage Neurological : Alert & oriented x3, No focal deficit Results Labs 09/03/22 08:50 09/03/22 08:50 Labs: Laboratory Results - last 24 hr 09/03/22 09/03/22 09/03/22 08:50 08:50 08:50 MCV 90.3 MCH 28.6 MCHC 31.7 RDW 14.9 Plt Count 271 MPV 10.6 Absolute Nucleated RBC 0.000 Nucleated RBC % (auto) 0.0 PT 13.6 H INR 1.2 H APTT 27.0 Anion Gap 15 Estim Creat Clear Calc 20.3 Estimated GFR 19 POC Glucose Random Glucose 351 H* Calcium 8.8 D 09/03/22 16:07 MCV MCH MCHC RDW Plt Count MPV Absolute Nucleated RBC Nucleated RBC % (auto) PT INR APTT Anion Gap Estim Creat Clear Calc Estimated GFR POC Glucose 223 H Random Glucose Calcium Assessment and Plan (1) PAD (peripheral artery disease): Status: Acute Plan An 81 years old male with PMH of CKD, CHF, recent OM, DM, HTN , PAD among others presented to the hospital for elective surgical amputation of right great toe. Nonhealing big toe ulcer POD 0 Vascular surgery following BPH Continue Finasteride and Doxazosin HTN Continue Metorolol DMII POC, diabetic diet Jardiance SSI HLD Statin Thank you for the consult, will continue to monitor with you. Time Spent With Patient Time: Total time managing care of this patient today ____ minutes.
[2022-09-03] MEDS: Insulin Lispro 100 UNIT/ML 3 ML VIAL SUBCUT ×2 (16:44→20:48)
[2022-09-03 20:34] LABS: Glucose, Whole Blood 312 mg/dL (60-115)
[2022-09-03] MEDS: Doxazosin Mesylate 2 MG TABLET 4 MG PO (20:48)
[2022-09-03] MEDS: Atorvastatin Calcium 20 MG TABLET PO (20:48)
[2022-09-03] MEDS: Metoprolol Tartrate 12.5 MG HALFTAB PO (20:48)
[2022-09-03] MEDS: Clotrimazole 1 % Cream 15 GM TUBE 1 APPL TOPICAL (20:53)
[2022-09-03] MEDS: Hydrocortisone 1 % Cream 28.35 GM TUBE 1 APPL TOPICAL (20:53)
[2022-09-04] MEDS: 0.9 % Sodium Chloride 1,000 ML 80 ML IVCONT (01:32)
[2022-09-04 04:00] VITALS: BP 116/58; PULSE 99; RESP 16; TEMP 36.1; O2SAT 96
[2022-09-04 05:32] LABS: MANUAL DIFF FLAG NO
[2022-09-04 05:34] LABS: Basophils Percent Auto 0.4 % (0-2); Eosinophils Absolute Auto 0.1 X10*3/uL (0.0-0.4); Eosinophils Percent Auto 1.1 % (0-4); Hemoglobin 7.8 g/dl (14.0-18.0); Imm Gran Abs Auto 0.07 X10*3/uL (0.00-0.03); Imm Gran Pct Auto 0.6 % (0.0-0.4); Lymphocytes Absolute Auto 0.5 X10*3/uL (1.2-4.9); Mean Corpuscular HGB Conc 31.2 g/dl (31.0-36.0); Mean Corpuscular Hemoglobin 28.5 pg (27.0-33.0); Mean Corpuscular Volume 91.2 fL (80.0-98.0); Mean Platelet Volume 10.7 fL (9.4-12.4); Monocytes Absolute Auto 0.5 X10*3/uL (0.1-1.2); Monocytes Percent Auto 4.9 % (2-11); Neutrophils Absolute Auto 9.5 x10*3/uL (2.0-8.3); Platelet Count 218 X10*3/uL (160-400); Red Blood Count 2.74 X10*6/uL (4.60-5.80); White Blood Count 10.8 X10*3/uL (4.8-10.8)
[2022-09-04 06:04] LABS: Anion Gap 14 (12-20); Blood Urea Nitrogen 42 mg/dL (9-16); Calcium 8.6 mg/dL (8.4-10.2); Carbon Dioxide 22 mmol/L (22-29); Chloride 106 mmol/L (96-108); Creatinine Clr Calc Pharmacy 22.5; Estimated Glomerular Filt Rate 22; Glucose Random 192 mg/dL (60-115); Sodium 138 mmol/L (135-145)
--- NOTE | 2022-09-04 07:09 | PC.NURSE ---
pt has eschar to left heel leg placed on pillow no dsg needed not draining . notified
[2022-09-04 07:16] LABS: Glucose, Whole Blood 192 mg/dL (60-115)
[2022-09-04 07:45] VITALS: BP 104/56; PULSE 96; RESP 20; TEMP 36.2; O2SAT 95
[2022-09-04] MEDS: Insulin Lispro 100 UNIT/ML 3 ML VIAL SUBCUT ×4 (07:45→21:27)
[2022-09-04] MEDS: vancomycin HCL 125 MG CAPSULE PO (07:45)
[2022-09-04] MEDS: oxyCODONE HCl Immed Release 5 MG TABLET PO ×2 (07:45→14:37)
[2022-09-04] MEDS: Empagliflozin 10 MG TABLET PO (08:22)
[2022-09-04] MEDS: Finasteride 5 MG TABLET PO (08:22)
[2022-09-04] MEDS: Metoprolol Tartrate 12.5 MG HALFTAB PO ×2 (08:22→21:07)
[2022-09-04] MEDS: Clotrimazole 1 % Cream 15 GM TUBE 1 APPL TOPICAL ×2 (08:22→21:06)
[2022-09-04] MEDS: Sodium Bicarbonate 650 MG TABLET PO ×3 (08:22→21:07)
[2022-09-04] MEDS: Cholecalciferol (Vitamin D3) 25 MCG TABLET 50 MCG PO (08:22)
[2022-09-04] MEDS: Hydrocortisone 1 % Cream 28.35 GM TUBE 1 APPL TOPICAL ×2 (08:23→21:06)
--- NOTE | 2022-09-04 09:47 | HO.PM.IMPN ---
Subjective Subjective Date of Service: 09/04/22 Interval History: Seen and evaluated Feels comfortable Denies any fever, abd pain or diarrhea no other overnight events Review of Systems Review of Systems: Yes all other systems are reviewed and are negative Physical Exam Vital Signs: Vital Signs: Last Vital Signs Temp 97.2 F 09/04/22 07:45 Pulse 96 09/04/22 07:45 Resp 20 09/04/22 07:45 BP 104/56 L 09/04/22 07:45 Pulse Ox 95 09/04/22 07:45 O2 Del Method Room Air 09/04/22 07:45 O2 Flow Rate 1 09/03/22 12:30 BMI result Body Mass Index 28.8 Const: Other: Constitutional : Awake, interactive, not in distress Neck : Normal inspection, Supple Cardiovascular : RRR, no JVP, no lower extremity edema Respiratory : good bilateral air entry, no crackles, wheezes or rhonchi Gastrointestinal: soft, lax, Normal bowel sounds, Non tender Skin : Warm, Dry, Rt foot in dressing, no erythema or drainage Neurological : Alert & oriented x3, No focal deficit Objective Data Active Medications Acetaminophen (Acetaminophen 325 Mg Tablet) 650 mg PO ONCE PRN PRN Reason: Pain, Mild (Pain Scale 1-3) Atorvastatin Calcium (Atorvastatin Calcium 20 Mg Tablet) 20 mg PO BEDTIME JIL Last Admin: 09/03/22 20:48 Dose: 20 mg Documented By: JONATHAN Clotrimazole (Clotrimazole 1 % Cream 15 Gm Tube) 1 appl TOPICAL BID [facility]; Protocol Last Admin: 09/04/22 08:22 Dose: 1 appl Documented By: GUILLERMO Dextrose (Dextrose 50 % 25 Gm/50 Ml Syringe) 25 gm IVPUSH Q15M PRN; Protocol PRN Reason: per Hypoglycemia Standing Ord. Doxazosin Mesylate (Doxazosin Mesylate 2 Mg Tablet) 4 mg PO BEDTIME [facility]IL; Protocol Last Admin: 09/03/22 20:48 Dose: 4 mg Documented By: JONATHAN Empagliflozin (Empagliflozin 10 Mg Tablet) 10 mg PO DAILY [facility]IL Last Admin: 09/04/22 08:22 Dose: 10 mg Documented By: GUILLERMO Finasteride (Finasteride 5 Mg Tablet) 5 mg PO DAILY [facility] Last Admin: 09/04/22 08:22 Dose: 5 mg Documented By: GUILLERMO Glucose (Glucose Gel 15 Gm Gel..Gram.) 15 gm PO Q15M PRN; Protocol PRN Reason: per Hypoglycemia Standing Ord. Hydrocortisone (Hydrocortisone 1 % Cream 28.35 Gm Tube) 1 appl TOPICAL BID [facility]; Protocol Stop: 09/10/22 09:01 Last Admin: 09/04/22 08:23 Dose: 1 appl Documented By: GUILLERMO Cefazolin Sodium 1 gm/ Sodium (Chloride) 50 mls @ 100 mls/hr IV Q8H [facility] Last Infusion: 09/04/22 03:44 Dose: 0 mls/hr Documented By: JONATHAN Insulin Human Lispro (Insulin Lispro 100 Unit/Ml 3 Ml Vial) 0 unit SUBCUT QIDACHS [facility]; Protocol Last Admin: 09/04/22 07:45 Dose: 2 unit Documented By: GUILLERMO Metoprolol Tartrate (Metoprolol Tartrate 12.5 Mg Halftab) 12.5 mg PO BID [facility]; Protocol Last Admin: 09/04/22 08:22 Dose: 12.5 mg Documented By: GUILLERMO Morphine Sulfate (Morphine Sulfate 2 Mg/Ml Cartridge) 2 mg IVPUSH Q4H PRN; Protocol PRN Reason: Pain, Severe (Pain Scale 7-10) Oxycodone HCl (Oxycodone Hcl Immed Release 5 Mg Tablet) 5 mg PO Q4H PRN PRN Reason: Pain, Moderate(Pain Scale 4-6) Last Admin: 09/04/22 07:45 Dose: 5 mg Documented By: GUILLERMO Sodium Bicarbonate (Sodium Bicarbonate 650 Mg Tablet) 650 mg PO TID [facility] Last Admin: 09/04/22 08:22 Dose: 650 mg Documented By: GUILLERMO Sodium Chloride (0.9 % Sodium Chloride Flush 3 Ml Syringe) 3 ml IVFLUSH QSHIFT [facility] Last Admin: 09/04/22 07:35 Dose: Not Given Documented By: GUILLERMO Non-Admin Reason: IV Running Vancomycin HCl (Vancomycin Hcl 125 Mg Capsule) 125 mg PO Q6H [facility] Last Admin: 09/04/22 07:45 Dose: 125 mg Documented By: GUILLERMO Vitamin D (Cholecalciferol (Vitamin D3) 25 Mcg Tablet) 50 mcg PO DAILY [facility] Last Admin: 09/04/22 08:22 Dose: 50 mcg Documented By: GUILLERMO Labs 09/04/22 05:27 09/04/22 05:27 Labs: Laboratory Results - last 24 hr 09/03/22 09/03/22 09/04/22 16:07 20:28 05:27 MCV 91.2 MCH 28.5 MCHC 31.2 RDW 15.0 Plt Count 218 MPV 10.7 Immature Gran % (Auto) 0.6 H Neut % (Auto) 88.0 H Lymph % (Auto) 5.0 L [place] % (Auto) 4.9 Eos % (Auto) 1.1 Baso % (Auto) 0.4 Lymph # (Auto) 0.5 L [place] # (Auto) 0.5 Eos # (Auto) 0.1 Baso # (Auto) 0.0 Abs Immat Gran (auto) 0.07 H Absolute Neuts (auto) 9.5 H Absolute Nucleated RBC 0.000 Nucleated RBC % (auto) 0.0 Anion Gap Estim Creat Clear Calc Estimated GFR POC Glucose 223 H 312 H Random Glucose Calcium 09/04/22 09/04/22 05:27 06:57 MCV MCH MCHC RDW Plt Count MPV Immature Gran % (Auto) Neut % (Auto) Lymph % (Auto) [place] % (Auto) Eos % (Auto) Baso % (Auto) Lymph # (Auto) [place] # (Auto) Eos # (Auto) Baso # (Auto) Abs Immat Gran (auto) Absolute Neuts (auto) Absolute Nucleated RBC Nucleated RBC % (auto) Anion Gap 14 Estim Creat Clear Calc 22.5 Estimated GFR 22 POC Glucose 192 H Random Glucose 192 H Calcium 8.6 Assessment and Plan (1) Iron deficiency anemia: Status: Acute (2) PAD (peripheral artery disease): Status: Acute Plan An 81 years old male with PMH of CKD, CHF, recent OM, DM, HTN , PAD among others presented to the hospital for elective surgical amputation of right great toe. Nonhealing big toe ulcer POD 0 Vascular surgery following Discussed need of IV Abx w positive C.Diff gene. DC Cefazolin DC PO prophylaxis Vancomycin Chronic anemia 2/2 CKD Hb of 7.8 check iron stores follow H&H BPH Continue Finasteride and Doxazosin HTN Continue Metorolol DMII POC, diabetic diet Jardiance SSI HLD Statin Thank you for the consult, will continue to monitor with you. Time Spent With Patient Time: Total time managing care of this patient today ____ minutes. Quality Stroke Does the patient have a stroke diagnosis?: No VTE Prior VTE?: No VTE Risk Level:: Medical - moderate - high VTE Device Contraindication: Treatment Not Indicated VTE Drug Contraindication: N/A - Med Ordered
--- NOTE | 2022-09-04 10:11 | MHC.CM.PN ---
pt lives w/ was recently dcd from [facility] [place] ,pt has own transport home dc plan home w/[facility]
[2022-09-04 10:38] LABS: Iron 15 mcg/dL (45-160); Percent Iron Saturation 12 % (15-50); Total Iron Binding Capacity 121 mcg/dL (228-428); Unsaturated Iron Binding 106 ug/dL
[2022-09-04 11:18] LABS: Glucose, Whole Blood 272 mg/dL (60-115)
[2022-09-04] MEDS: Heparin Sodium,Porcine 5,000 UNIT/ML VIAL 5000 UNIT SUBCUT ×2 (11:34→21:33)
--- NOTE | 2022-09-04 13:47 | HO.VASCPN ---
Subjective Subjective Date of Service: 09/04/22 Patient reports: no new complaints and feels better Interval history: Patient is postop day 1 status post great toe amputation. Appears to be doing relatively well. He was ambulating with a surgical shoe. Denies any other pain or discomfort. Now for routine follow-up. Physical Exam Vital Signs: Vital Signs: Last Vital Signs Temp 97.2 F 09/04/22 07:45 Pulse 96 09/04/22 07:45 Resp 20 09/04/22 07:45 BP 104/56 L 09/04/22 07:45 Pulse Ox 95 09/04/22 07:45 O2 Del Method Room Air 09/04/22 07:45 O2 Flow Rate 1 09/03/22 12:30 BMI result Body Mass Index 28.8 Const: General: cooperative, healthy appearing and no acute distress Orientation/consciousness: oriented to person, oriented to place and oriented to time HEENT: Head: Yes normal to inspection Neck: Carotids: no bruits Chest: Chest palpation & inspection: normal inspection of the chest Resp: Effort & Inspection: normal respiratory effort and able to speak in complete sentences Auscultation: clear to auscultation bilaterally Cardio: Rate: regular rate Heart sounds: S1 normal heart sound present and S2 normal heart sound present GI: Inspection: Yes normal to inspection Skin: Other: Dressing clean dry intact General skin exam: no rashes or lesions noted Wounds: amputation site Neuro: General: oriented to person, oriented to place, oriented to time and CN's II-XI intact bilaterally Extrem: General: Yes normal to inspection, Yes full ROM and Yes no clubbing, cyanosis or edema Psych: Appearance: grossly normal and well kempt Speech and movement: Normal speech and movement present Affect: normal affect Progress Note: A&P Assessment and plan (1) Ulcer of right 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: Status: Acute Plan In short patient has nonhealing right great toe ulcer which was amputated with a right great toe ray amputation. Due to the location of the wound we did not have enough skin for coverage. Bone was covered. At the current time will continue with local wound care. Will plan for dressing change for tomorrow. Should his foot be stable the patient is requesting to go home with visiting nurses and was not interested in rehab placement. Will reassess tomorrow for disposition. Thank you to the hospitalist for their assistance in his care. Time Spent With Patient Time: Total time managing care of this patient today ____ minutes. Procedures Date of Service Date of Service: 09/04/22 Quality Stroke Does the patient have a stroke diagnosis?: No VTE Prior VTE?: No VTE Risk Level:: Medical - moderate - high VTE Device Contraindication: Treatment Not Indicated VTE Drug Contraindication: N/A - Med Ordered
--- NOTE | 2022-09-04 14:37 | HO.POSTANES ---
Post Anesthesia Evaluation Post Anesthesia Evaluation Date of Service: 09/04/22 Vital Signs: Vital Signs Temp Pulse Resp BP Pulse Ox O2 Del Method 09/04/22 07:45 97.2 F 96 20 104/56 L 95 Room Air 09/04/22 04:00 96.9 F 99 16 116/58 L 96 Room Air Anesthesia: General Mental Status: Awake Pain Control: Satisfactory Nausea/Vomiting: None Hydration: Adequate Anesthesia-Related Issues: No Anes. Related Issues
[2022-09-04] MEDS: 0.9 % Sodium Chloride Flush 3 ML SYRINGE IVFLUSH ×2 (15:11→21:10)
[2022-09-04 16:00] VITALS: BP 128/60; PULSE 88; RESP 20; TEMP 36.2; O2SAT 96
[2022-09-04 16:07] LABS: Glucose, Whole Blood 290 mg/dL (60-115)
[2022-09-04 20:00] VITALS: BP 131/62; PULSE 108; RESP 16; TEMP 36.6; O2SAT 92
[2022-09-04] MEDS: Doxazosin Mesylate 2 MG TABLET 4 MG PO (21:07)
[2022-09-04] MEDS: Atorvastatin Calcium 20 MG TABLET PO (21:07)
[2022-09-04 21:40] LABS: Glucose, Whole Blood 308 mg/dL (60-115)
[2022-09-05] VITALS (13 sets, daily range): BP systolic 50–116; BP diastolic 40–60; PULSE 95–107; RESP 16–99; TEMP 35.9–36.6; O2SAT 86–97
[2022-09-05 07:52] LABS: Glucose, Whole Blood 192 mg/dL (60-115)
[2022-09-05] MEDS: Insulin Lispro 100 UNIT/ML 3 ML VIAL SUBCUT ×3 (07:55→16:53)
[2022-09-05] MEDS: Metoprolol Tartrate 12.5 MG HALFTAB PO (07:56)
[2022-09-05] MEDS: Cholecalciferol (Vitamin D3) 25 MCG TABLET 50 MCG PO (07:56)
[2022-09-05] MEDS: Ferrous Sulfate 324 MG TABLET.DR PO ×2 (07:56→16:53)
[2022-09-05] MEDS: Sodium Bicarbonate 650 MG TABLET PO ×3 (07:56→22:23)
[2022-09-05] MEDS: Finasteride 5 MG TABLET PO (07:56)
[2022-09-05] MEDS: Clotrimazole 1 % Cream 15 GM TUBE 1 APPL TOPICAL ×2 (07:57→22:08)
[2022-09-05] MEDS: Empagliflozin 10 MG TABLET PO (07:57)
[2022-09-05] MEDS: Hydrocortisone 1 % Cream 28.35 GM TUBE 1 APPL TOPICAL ×2 (07:58→22:09)
[2022-09-05] MEDS: Heparin Sodium,Porcine 5,000 UNIT/ML VIAL 5000 UNIT SUBCUT ×2 (10:53→22:23)
--- NOTE | 2022-09-05 11:19 | HO.VASCPN ---
Subjective Subjective Date of Service: 09/05/22 Patient reports: no new complaints and feels better Interval history: Patient seen and examined. No significant events overnight. Doing relatively well. Pain well controlled. Now for dressing change. Physical Exam Vital Signs: Vital Signs: Last Vital Signs Temp 97.9 F 09/05/22 07:15 Pulse 100 09/05/22 07:15 Resp 18 09/05/22 07:15 BP 103/58 L 09/05/22 07:15 Pulse Ox 95 09/05/22 07:15 O2 Del Method Room Air 09/05/22 10:00 O2 Flow Rate 1 09/03/22 12:30 BMI result Body Mass Index 28.8 Const: General: cooperative, healthy appearing and no acute distress Orientation/consciousness: oriented to person, oriented to place and oriented to time HEENT: Head: Yes normal to inspection Neck: Carotids: no bruits Chest: Chest palpation & inspection: normal inspection of the chest Resp: Effort & Inspection: normal respiratory effort and able to speak in complete sentences Auscultation: clear to auscultation bilaterally Cardio: Rate: regular rate Heart sounds: S1 normal heart sound present and S2 normal heart sound present GI: Inspection: Yes normal to inspection Skin: Other: General skin exam: no rashes or lesions noted Wounds: amputation site Neuro: General: oriented to person, oriented to place, oriented to time and CN's II-XI intact bilaterally Extrem: General: Yes normal to inspection, Yes full ROM and Yes no clubbing, cyanosis or edema Psych: Appearance: grossly normal and well kempt Speech and movement: Normal speech and movement present Affect: normal affect Progress Note: A&P Assessment and plan (1) Cellulitis of foot, right: Status: Acute Assessment and Plan: Patient is status post amputation of right great toe. Has foot is doing poorly. There is surrounding cellulitis. Nonhealing open ulcer. We will add vancomycin to the regimen. My hope is is that it does heal to degree and cellulitis improves so that we can move on to his cancer surgery if not he will require further amputation. Due to the location of all of this will most likely require a trans met and unfortunately he is at high risk for BKA due to his inability to anticoagulate. We will continue to monitor him closely. Thank you for allowing us to assist in his care. If there are any questions or concerns please do not hesitate to contact us. Time Spent With Patient Time: Total time managing care of this patient today ____ minutes. Procedures Date of Service Date of Service: 09/05/22 Quality Stroke Does the patient have a stroke diagnosis?: No VTE Prior VTE?: No VTE Risk Level:: Medical - moderate - high VTE Device Contraindication: Treatment Not Indicated VTE Drug Contraindication: N/A - Med Ordered
[2022-09-05 11:28] LABS: Glucose, Whole Blood 259 mg/dL (60-115)
--- NOTE | 2022-09-05 13:57 | MHC.CM.PN ---
IMM 09/04/22 DP home with resumption of [facility]. Patient will arrange transport home.
[2022-09-05] MEDS: 0.9 % Sodium Chloride Flush 3 ML SYRINGE IVFLUSH ×2 (14:22→22:08)
[2022-09-05] MEDS: vancomycin/NS 2,000 MG/500 ML PLAST..BAG 250 MG IV (14:22)
--- NOTE | 2022-09-05 15:10 | HO.PM.IMPN ---
Subjective Subjective Date of Service: 09/05/22 Interval History: Seen and evaluated Feels weak but overall ok wound looks worse with erythema Denies any fever, abd pain or diarrhea no other overnight events Review of Systems Review of Systems: Yes all other systems are reviewed and are negative Physical Exam Vital Signs: Vital Signs: Last Vital Signs Temp 97.9 F 09/05/22 07:15 Pulse 100 09/05/22 07:15 Resp 18 09/05/22 07:15 BP 103/58 L 09/05/22 07:15 Pulse Ox 95 09/05/22 07:15 O2 Del Method Room Air 09/05/22 10:00 O2 Flow Rate 1 09/03/22 12:30 BMI result Body Mass Index 28.8 Const: Other: Constitutional : Awake, interactive, not in distress Neck : Normal inspection, Supple Cardiovascular : RRR, no JVP, no lower extremity edema Respiratory : good bilateral air entry, no crackles, wheezes or rhonchi Gastrointestinal: soft, lax, Normal bowel sounds, Non tender Skin : Warm, Dry, Rt foot erythema and warmth aroud the area of surgery and dressing Neurological : Alert & oriented x3, No focal deficit Objective Data Active Medications Acetaminophen (Acetaminophen 325 Mg Tablet) 650 mg PO ONCE PRN PRN Reason: Pain, Mild (Pain Scale 1-3) Atorvastatin Calcium (Atorvastatin Calcium 20 Mg Tablet) 20 mg PO BEDTIME JIL Last Admin: 09/04/22 21:07 Dose: 20 mg Documented By: JONATHAN Clotrimazole (Clotrimazole 1 % Cream 15 Gm Tube) 1 appl TOPICAL BID [facility]; Protocol Last Admin: 09/05/22 07:57 Dose: 1 appl Documented By: CATHERINE Dextrose (Dextrose 50 % 25 Gm/50 Ml Syringe) 25 gm IVPUSH Q15M PRN; Protocol PRN Reason: per Hypoglycemia Standing Ord. Doxazosin Mesylate (Doxazosin Mesylate 2 Mg Tablet) 4 mg PO BEDTIME [facility]; Protocol Last Admin: 09/04/22 21:07 Dose: 4 mg Documented By: JONATHAN Empagliflozin (Empagliflozin 10 Mg Tablet) 10 mg PO DAILY [facility] Last Admin: 09/05/22 07:57 Dose: 10 mg Documented By: CATHERINE Ferrous Sulfate (Ferrous Sulfate 324 Mg Tablet.) 324 mg PO BIDWM [facility] Last Admin: 09/05/22 07:56 Dose: 324 mg Documented By: CATHERINE Finasteride (Finasteride 5 Mg Tablet) 5 mg PO DAILY [facility] Last Admin: 09/05/22 07:56 Dose: 5 mg Documented By: CATHERINE Glucose (Glucose Gel 15 Gm Gel..Gram.) 15 gm PO Q15M PRN; Protocol PRN Reason: per Hypoglycemia Standing Ord. Heparin Sodium (Porcine) (Heparin Sodium,Porcine 5,000 Unit/Ml Vial) 5,000 unit SUBCUT Q12H [facility] Last Admin: 09/05/22 10:53 Dose: 5,000 unit Documented By: CATHERINE Hydrocortisone (Hydrocortisone 1 % Cream 28.35 Gm Tube) 1 appl TOPICAL BID [facility]; Protocol Stop: 09/10/22 09:01 Last Admin: 09/05/22 07:58 Dose: 1 appl Documented By: CATHERINE Vancomycin HCl (Vancomycin/Ns) 2,000 mg in 500 mls @ 250 mls/hr IV ONCE ONE Stop: 09/05/22 15:24 Last Admin: 09/05/22 14:22 Dose: 250 mls/hr Documented By: CATHERINE Vancomycin HCl 500 mg/ Sodium (Chloride) 110 mls @ 110 mls/hr IV Q24H [facility] Insulin Human Lispro (Insulin Lispro 100 Unit/Ml 3 Ml Vial) 0 unit SUBCUT QIDACHS [facility]; Protocol Last Admin: 09/05/22 11:46 Dose: 6 unit Documented By: CATHERINE Metoprolol Tartrate (Metoprolol Tartrate 12.5 Mg Halftab) 12.5 mg PO BID [facility]; Protocol Last Admin: 09/05/22 07:56 Dose: 12.5 mg Documented By: CATHERINE Morphine Sulfate (Morphine Sulfate 2 Mg/Ml Cartridge) 2 mg IVPUSH Q4H PRN; Protocol PRN Reason: Pain, Severe (Pain Scale 7-10) Oxycodone HCl (Oxycodone Hcl Immed Release 5 Mg Tablet) 5 mg PO Q4H PRN PRN Reason: Pain, Moderate(Pain Scale 4-6) Last Admin: 09/04/22 14:37 Dose: 5 mg Documented By: GUILLERMO Pharmacy Consult (Consult Rx Vancomycin Dosing) 1 each MISCELLANE DAILY PRN PRN Reason: Consult order Sodium Bicarbonate (Sodium Bicarbonate 650 Mg Tablet) 650 mg PO TID [facility] Last Admin: 09/05/22 14:22 Dose: 650 mg Documented By: CATHERINE Sodium Chloride (0.9 % Sodium Chloride Flush 3 Ml Syringe) 3 ml IVFLUSH QSHIFT [facility] Last Admin: 09/05/22 14:22 Dose: 3 ml Documented By: CATHERINE Vitamin D (Cholecalciferol (Vitamin D3) 25 Mcg Tablet) 50 mcg PO DAILY [facility] Last Admin: 09/05/22 07:56 Dose: 50 mcg Documented By: CATHERINE Labs 09/04/22 05:27 09/04/22 05:27 Labs: Laboratory Results - last 24 hr 09/04/22 09/04/22 09/05/22 15:57 21:22 07:19 POC Glucose 290 H 308 H 192 H 09/05/22 11:14 POC Glucose 259 H Assessment and Plan (1) Cellulitis: Status: Acute Plan An 81 years old male with PMH of CKD, CHF, recent OM, DM, HTN , PAD among others presented to the hospital for elective surgical amputation of right great toe. Cellulitis at the site of Nonhealing big toe ulcer s/p amputation Vascular surgery following start Vancomycin IV wound care follow vancomycin trough Chronic anemia 2/2 CKD Hb of 7.8 low iron stores, start po iron supplement follow H&H BPH Continue Finasteride and Doxazosin HTN Continue Metorolol DMII POC, diabetic diet Jardiance SSI HLD Statin Thank you for the consult, will continue to monitor with you. Time Spent With Patient Time: Total time managing care of this patient today ____ minutes. Quality Stroke Does the patient have a stroke diagnosis?: No VTE Prior VTE?: No VTE Risk Level:: Medical - moderate - high VTE Device Contraindication: Treatment Not Indicated VTE Drug Contraindication: N/A - Med Ordered
[2022-09-05] MEDS: oxyCODONE HCl Immed Release 5 MG TABLET PO (15:34)
[2022-09-05 16:24] LABS: Glucose, Whole Blood 265 mg/dL (60-115)
[2022-09-05 19:44] LABS: Glucose, Whole Blood 130 mg/dL (60-115)
[2022-09-05] MEDS: 0.9 % Sodium Chloride 1,000 ML 999 ML IV (19:56)
[2022-09-05] MEDS: Albumin Human 25 % 100 ML IV ×2 (20:14→21:16)
[2022-09-05 21:53] LABS: B Type Natriuretic Peptide 137 pg/mL (<100)
[2022-09-05] MEDS: Atorvastatin Calcium 20 MG TABLET PO (22:23)
[2022-09-05] MEDS: 0.9 % Sodium Chloride 500 ML IV (22:35)
[2022-09-06] VITALS (12 sets, daily range): BP systolic 76–116; BP diastolic 46–58; PULSE 63–99; RESP 15–20; TEMP 35.8–36.8; O2SAT 95–98
--- NOTE | 2022-09-06 00:30 | PC.NURSE ---
Addendum entered by Roxana Rodriguez RN 09/06/22 06:54: Lab called at 0649 with critical hemoglobin =7.0, Dr. Varghese was made aware, incoming RN was updated. Original Note: Routine vitals at 1900 was 60s sysolic, manual was checked and it was 50/40 HR 101, pt aroused when spoken to, oriented but forgetful, pt c/o feeling weak but no dizziness, POC= 130, Dr. Varghese was notified, pt was pt on trend position. MD ordered 2 bottles of ALbumin, after few minutues, pt was noted to be drifting to sleep easily during conversation, and desating on the mid to high 80s, O2 at 2-3L/min via NC applied, O2 sats improved right away to high 90s, Bolus of NS 1L ordered for 1 hr and infused, simultaneously ALbumin was given in another IV access as per MD, vitals was monitored and recorded. After bolus and first Albumin at 2100, BP 77/46 H 102, Dr. Varghese was updated, pt denies any complaints but just falling to sleep after, another bag of bolus NS 500ml x1 hr ordered and infused, BP rechecked after as 71/48 HR 97, Dr. Varghese was notified and said BP is acceptable for now as pt has no complaints or symptoms.
[2022-09-06 06:17] LABS: Hematocrit 22.3 % (42.0-52.0); Mean Corpuscular HGB Conc 31.4 g/dl (31.0-36.0); Mean Corpuscular Hemoglobin 28.6 pg (27.0-33.0); Mean Platelet Volume 10.9 fL (9.4-12.4); Platelet Count 235 X10*3/uL (160-400); Red Blood Count 2.45 X10*6/uL (4.60-5.80); Red Cell Distribution Width 15.5 % (11.0-16.0); White Blood Count 18.4 X10*3/uL (4.8-10.8)
[2022-09-06 06:36] LABS: Anion Gap 14 (12-20); Blood Urea Nitrogen 47 mg/dL (9-16); Calcium 8.4 mg/dL (8.4-10.2); Carbon Dioxide 19 mmol/L (22-29); Chloride 106 mmol/L (96-108); Creatinine Clr Calc Pharmacy 21.8; Estimated Glomerular Filt Rate 21; Glucose Random 176 mg/dL (60-115); Potassium 3.9 mmol/L (3.3-5.1); Sodium 135 mmol/L (135-145)
--- NOTE | 2022-09-06 07:14 | HO.VASCPN ---
Subjective Subjective Date of Service: 09/06/22 Patient reports: no new complaints Interval history: Complex 82-year-old gentleman for follow-up status post great toe amp. Had a fair amount of erythema on dressing change yesterday. No significant events overnight. Relatively comfortable in bed. Now for routine follow-up. Physical Exam Vital Signs: Vital Signs: Last Vital Signs Temp 98.2 F 09/06/22 02:25 Pulse 90 09/06/22 02:25 Resp 16 09/06/22 02:25 BP 88/50 L 09/06/22 02:25 Pulse Ox 97 09/06/22 02:25 O2 Del Method Nasal Cannula 09/06/22 02:25 O2 Flow Rate 2 09/06/22 02:25 BMI result Body Mass Index 28.8 Const: General: cooperative, healthy appearing and no acute distress Orientation/consciousness: oriented to person, oriented to place and oriented to time HEENT: Head: Yes normal to inspection Neck: Carotids: no bruits Chest: Chest palpation & inspection: normal inspection of the chest Resp: Effort & Inspection: normal respiratory effort and able to speak in complete sentences Auscultation: clear to auscultation bilaterally Cardio: Rate: regular rate Heart sounds: S1 normal heart sound present and S2 normal heart sound present GI: Inspection: Yes normal to inspection Skin: Other: Dressing clean dry intact General skin exam: no rashes or lesions noted Wounds: no wounds Neuro: General: oriented to person, oriented to place, oriented to time and CN's II-XI intact bilaterally Extrem: General: Yes normal to inspection, Yes full ROM and Yes no clubbing, cyanosis or edema Psych: Appearance: grossly normal and well kempt Speech and movement: Normal speech and movement present Affect: normal affect Progress Note: A&P Assessment and plan (1) Cellulitis of foot, right: Status: Acute Assessment and Plan: In short patient has nonhealing foot ulcer. In addition there is cellulitis. Was started on antibiotics. We will see how the antibiotics due. He is at risk for further amputation which was discussed in detail with the patient this morning. Also of concern is the significant elevated white count. Will have to aggressively treat this with antibiotics even though he is at risk for C diff. transfuse as needed. Case discussed with the hospitalist team. Will require hospitalization until infection clears. Thank you to the hospitalist for their assistance in this patient's care. Time Spent With Patient Time: Total time managing care of this patient today ____ minutes. Procedures Date of Service Date of Service: 09/06/22 Quality Stroke Does the patient have a stroke diagnosis?: No VTE Prior VTE?: No VTE Risk Level:: Medical - moderate - high VTE Device Contraindication: Treatment Not Indicated VTE Drug Contraindication: N/A - Med Ordered
[2022-09-06 08:00] LABS: Glucose, Whole Blood 173 mg/dL (60-115)
[2022-09-06] MEDS: Ferrous Sulfate 324 MG TABLET.DR PO ×2 (08:23→17:28)
[2022-09-06] MEDS: Sodium Bicarbonate 650 MG TABLET PO ×3 (08:23→20:55)
[2022-09-06] MEDS: Empagliflozin 10 MG TABLET PO (08:23)
[2022-09-06] MEDS: Cholecalciferol (Vitamin D3) 25 MCG TABLET 50 MCG PO (08:23)
[2022-09-06] MEDS: Insulin Lispro 100 UNIT/ML 3 ML VIAL SUBCUT ×4 (08:23→20:55)
[2022-09-06] MEDS: Finasteride 5 MG TABLET PO (08:23)
[2022-09-06] MEDS: Pantoprazole Sodium 40 MG/10 ML VIAL IVPUSH ×2 (08:23→17:28)
[2022-09-06] MEDS: Clotrimazole 1 % Cream 15 GM TUBE 1 APPL TOPICAL ×2 (08:27→20:57)
[2022-09-06] MEDS: 0.9 % Sodium Chloride Flush 3 ML SYRINGE IVFLUSH ×2 (08:27→20:55)
[2022-09-06] MEDS: Hydrocortisone 1 % Cream 28.35 GM TUBE 1 APPL TOPICAL ×2 (09:42→20:56)
--- NOTE | 2022-09-06 09:44 | P.PNIM_ITS ---
Subjective Subjective Date of Service: 09/06/22 Interval History: Seen and evaluated Feels overall ok BP running low since last night, Hb dropped to 7 Responded to IVF boluses no other overnight events Review of Systems Review of Systems: Yes all other systems are reviewed and are negative Physical Exam Vital Signs: Vital Signs: Last Vital Signs Temp 96.9 F 09/06/22 07:51 Pulse 80 09/06/22 07:51 Resp 20 09/06/22 07:51 BP 91/54 L 09/06/22 07:51 Pulse Ox 95 09/06/22 07:51 O2 Del Method Nasal Cannula 09/06/22 07:51 O2 Flow Rate 2 09/06/22 07:51 BMI result Body Mass Index 28.8 Const: Other: Constitutional : Awake, interactive, not in distress Neck : Normal inspection, Supple Cardiovascular : RRR, no JVP, no lower extremity edema Respiratory : good bilateral air entry, no crackles, wheezes or rhonchi Gastrointestinal: soft, lax, Normal bowel sounds, Non tender Skin : Warm, Dry, Rt foot erythema and warmth aroud the area of surgery and dressing Neurological : Alert & oriented x3, No focal deficit Objective Data Active Medications Acetaminophen (Acetaminophen 325 Mg Tablet) 650 mg PO ONCE PRN PRN Reason: Pain, Mild (Pain Scale 1-3) Atorvastatin Calcium (Atorvastatin Calcium 20 Mg Tablet) 20 mg PO BEDTIME [facility] Last Admin: 09/05/22 22:23 Dose: 20 mg Documented By: SARTHAK Clotrimazole (Clotrimazole 1 % Cream 15 Gm Tube) 1 appl TOPICAL BID [facility]; Protocol Last Admin: 09/06/22 08:27 Dose: 1 appl Documented By: CATHERINE Dextrose (Dextrose 50 % 25 Gm/50 Ml Syringe) 25 gm IVPUSH Q15M PRN; Protocol PRN Reason: per Hypoglycemia Standing Ord. Empagliflozin (Empagliflozin 10 Mg Tablet) 10 mg PO DAILY [facility] Last Admin: 09/06/22 08:23 Dose: 10 mg Documented By: CATHERINE Ferrous Sulfate (Ferrous Sulfate 324 Mg Tablet.) 324 mg PO BIDWM [facility] Last Admin: 09/06/22 08:23 Dose: 324 mg Documented By: CATHERINE Finasteride (Finasteride 5 Mg Tablet) 5 mg PO DAILY [facility] Last Admin: 09/06/22 08:23 Dose: 5 mg Documented By: CATHERINE Glucose (Glucose Gel 15 Gm Gel..Gram.) 15 gm PO Q15M PRN; Protocol PRN Reason: per Hypoglycemia Standing Ord. Hydrocortisone (Hydrocortisone 1 % Cream 28.35 Gm Tube) 1 appl TOPICAL BID [facility]; Protocol Stop: 09/10/22 09:01 Last Admin: 09/06/22 09:42 Dose: 1 appl Documented By: CATHERINE Vancomycin HCl 500 mg/ Sodium (Chloride) 110 mls @ 110 mls/hr IV Q24H [facility] Insulin Human Lispro (Insulin Lispro 100 Unit/Ml 3 Ml Vial) 0 unit SUBCUT QIDACHS [facility]; Protocol Last Admin: 09/06/22 08:23 Dose: 2 unit Documented By: CATHERINE Morphine Sulfate (Morphine Sulfate 2 Mg/Ml Cartridge) 2 mg IVPUSH Q4H PRN; Protocol PRN Reason: Pain, Severe (Pain Scale 7-10) Oxycodone HCl (Oxycodone Hcl Immed Release 5 Mg Tablet) 5 mg PO Q4H PRN PRN Reason: Pain, Moderate(Pain Scale 4-6) Last Admin: 09/05/22 15:34 Dose: 5 mg Documented By: CATHERINE Pantoprazole Sodium (Pantoprazole Sodium 40 Mg/10 Ml Vial) 40 mg IVPUSH BID@0630,1630 [facility] Last Admin: 09/06/22 08:23 Dose: 40 mg Documented By: CATHERINE Pharmacy Consult (Consult Rx Vancomycin Dosing) 1 each MISCELLANE DAILY PRN PRN Reason: Consult order Sodium Bicarbonate (Sodium Bicarbonate 650 Mg Tablet) 650 mg PO TID [facility] Last Admin: 09/06/22 08:23 Dose: 650 mg Documented By: CATHERINE Sodium Chloride (0.9 % Sodium Chloride Flush 3 Ml Syringe) 3 ml IVFLUSH QSHIFT [facility] Last Admin: 09/06/22 08:27 Dose: 3 ml Documented By: CATHERINE Vitamin D (Cholecalciferol (Vitamin D3) 25 Mcg Tablet) 50 mcg PO DAILY [facility] Last Admin: 09/06/22 08:23 Dose: 50 mcg Documented By: CATHERINE Labs 09/06/22 05:32 09/06/22 05:32 Labs: Laboratory Results - last 24 hr 09/05/22 09/05/22 09/05/22 11:14 16:19 19:39 MCV MCH MCHC RDW Plt Count MPV Absolute Nucleated RBC Nucleated RBC % (auto) Anion Gap Estim Creat Clear Calc Estimated GFR POC Glucose 259 H 265 H 130 H Random Glucose Calcium Troponin I High Sens B-Natriuretic Peptide Blood Type Antibody Screen Crossmatch 09/05/22 09/05/22 09/06/22 20:24 20:24 05:32 MCV 91.0 MCH 28.6 MCHC 31.4 RDW 15.5 Plt Count 235 MPV 10.9 Absolute Nucleated RBC 0.000 Nucleated RBC % (auto) 0.0 Anion Gap Estim Creat Clear Calc Estimated GFR POC Glucose Random Glucose Calcium Troponin I High Sens 7.0 B-Natriuretic Peptide 137 H Blood Type Antibody Screen Crossmatch 09/06/22 09/06/22 09/06/22 05:32 07:45 07:50 MCV MCH MCHC RDW Plt Count MPV Absolute Nucleated RBC Nucleated RBC % (auto) Anion Gap 14 Estim Creat Clear Calc 21.8 Estimated GFR 21 POC Glucose 173 H Random Glucose 176 H Calcium 8.4 Troponin I High Sens B-Natriuretic Peptide Blood Type O Positive Antibody Screen NEGATIVE Crossmatch See Detail Assessment and Plan (1) Cellulitis: Status: Acute (2) DEON (acute kidney injury): Status: Acute (3) Acute on chronic blood loss anemia: Status: Acute Plan An 81 years old male with PMH of CKD, CHF, recent OM, DM, HTN , PAD among others presented to the hospital for elective surgical amputation of right great toe. Acute loss anemia on Chronic anemia 2/2 CKD Hb dropped to 7, partially loss and dilutional to give 2 units of blood give lasix afterward check occult stool dc heparin consider GI eval if continues to drop follow H&H Hypotension concern 2/2 blood loss, Med BP dropped overnight too low, responded partially to IVF boluses Hold BP meds to give blood monitor BP Cellulitis at the site of Nonhealing big toe ulcer s/p amputation Vascular surgery following start Vancomycin IV wound care follow vancomycin trough BPH Continue Finasteride and Doxazosin DMII POC, diabetic diet Jardiance SSI HLD Statin Thank you for the consult, will continue to monitor with you. Time Spent With Patient Time: Total time managing care of this patient today ____ minutes. Quality Stroke Does the patient have a stroke diagnosis?: No VTE Prior VTE?: No VTE Risk Level:: Medical - moderate - high VTE Device Contraindication: Treatment Not Indicated VTE Drug Contraindication: N/A - Med Ordered
--- NOTE | 2022-09-06 10:11 | HO.WOUND ---
Wound Care Consult Reason for consult: Unstageable left heel Patient has a stage III pressure ulcer to the left heel. Patient was in his recliner on consult. Foam border removed. Large amount of purulent, serosanguineous drainage. Wound bed appearance was large pink tissue with a small amount of yellow/black slough towards the proximal portion of the wound. Wound edges were attached. No undermining. No odor. Surrounding tissue was intact but periwound was very macerated. Wound measured 5.3cm x 2.6cm x 0.2cm. Wound was cleansed with sea clense wound cleanser. Cut alginate ag to wound size and applied to wound bed. Covered with gauze and kerlix. Recommendation: Would recommend cleansing the wound with normal saline or sea clens wound cleanser. Apply zinc barrier cream to periwound. Cut alginate ag to wound size and apply to wound. Cover with gauze and kanchan wrap to help cushion and absorb drainage. Change dressing daily. Also when patient is in bed or in the recliner to make sure the heel is floating, avoiding pressure to the wound. If there are any changes or questions, please feel free to reconsult. Patient may follow up in the wound care clinic after discharge if the patient is still in need of our services.
[2022-09-06 11:30] LABS: Glucose, Whole Blood 190 mg/dL (60-115)
[2022-09-06 14:10] LABS: OBS Int Ctl Valid YES; OBS1 POSITIVE (NEGATIVE)
[2022-09-06 16:13] LABS: Glucose, Whole Blood 212 mg/dL (60-115)
[2022-09-06 16:54] LABS: Vancomycin Random 19.7 mcg/mL (15-20)
--- NOTE | 2022-09-06 17:21 | HE.PHANOTE ---
Addendum entered by Swathi Mccauley [facility] 09/07/22 06:38: Patients trough back at 18.9, patient has only received a load and this was about 48 hours ago. Will get another random for 1400 today. RX insight is predicted 500 mg Q24H will be supra therapeutic. Original Note: VANCO DOSE ADJUSTMENT BASED ON SCR INCREASING AND TROUGH OF 19.7 DOSE HELD ON 09/06. TROUGH ORDERED FOR 09/07 @ 0600
--- NOTE | 2022-09-06 18:27 | PC.NURSE ---
Pt hypotensive overnight. 09/06 pt was 90s/50s throughout the day. critical Hgb-7.0 called in the am. Pt received 2 units throughout my shift. Bp remained soft post transfusions 105/50. held IV lasix 20mg d/t Pt w/o dyspnea and clear lung sounds.
[2022-09-06 20:43] LABS: Glucose, Whole Blood 234 mg/dL (60-115)
[2022-09-06] MEDS: Atorvastatin Calcium 20 MG TABLET PO (20:55)
[2022-09-07 04:00] VITALS: BP 130/63; PULSE 98; RESP 16; TEMP 36.2; O2SAT 96
[2022-09-07] MEDS: Pantoprazole Sodium 40 MG/10 ML VIAL IVPUSH ×2 (05:42→16:21)
[2022-09-07 05:58] LABS: Hematocrit 29.6 % (42.0-52.0); Hemoglobin 9.9 g/dl (14.0-18.0); Mean Corpuscular HGB Conc 33.4 g/dl (31.0-36.0); Mean Corpuscular Hemoglobin 29.8 pg (27.0-33.0); Mean Corpuscular Volume 89.2 fL (80.0-98.0); Mean Platelet Volume 10.4 fL (9.4-12.4); Platelet Count 225 X10*3/uL (160-400); Red Blood Count 3.32 X10*6/uL (4.60-5.80); Red Cell Distribution Width 15.2 % (11.0-16.0)
[2022-09-07 06:12] LABS: Anion Gap 14 (12-20); Blood Urea Nitrogen 49 mg/dL (9-16); Calcium 8.6 mg/dL (8.4-10.2); Carbon Dioxide 19 mmol/L (22-29); Chloride 107 mmol/L (96-108); Creatinine Clr Calc Pharmacy 21.6; Estimated Glomerular Filt Rate 21; Glucose Random 214 mg/dL (60-115); Potassium 3.9 mmol/L (3.3-5.1); Sodium 136 mmol/L (135-145)
[2022-09-07 06:14] LABS: Vancomycin Random 18.9 mcg/mL (15-20)
[2022-09-07 07:23] LABS: Glucose, Whole Blood 204 mg/dL (60-115)
[2022-09-07 07:49] VITALS: BP 135/67; PULSE 91; RESP 18; TEMP 36.3; O2SAT 96
[2022-09-07] MEDS: Ferrous Sulfate 324 MG TABLET.DR PO ×2 (08:10→16:21)
[2022-09-07] MEDS: Empagliflozin 10 MG TABLET PO (08:10)
[2022-09-07] MEDS: Sodium Bicarbonate 650 MG TABLET PO ×3 (08:10→20:14)
[2022-09-07] MEDS: Cholecalciferol (Vitamin D3) 25 MCG TABLET 50 MCG PO (08:10)
[2022-09-07] MEDS: Clotrimazole 1 % Cream 15 GM TUBE 1 APPL TOPICAL ×2 (08:10→20:16)
[2022-09-07] MEDS: Finasteride 5 MG TABLET PO (08:10)
[2022-09-07] MEDS: Insulin Lispro 100 UNIT/ML 3 ML VIAL SUBCUT ×4 (08:10→20:15)
[2022-09-07] MEDS: 0.9 % Sodium Chloride Flush 3 ML SYRINGE IVFLUSH ×3 (08:10→20:15)
[2022-09-07] MEDS: Hydrocortisone 1 % Cream 28.35 GM TUBE 1 APPL TOPICAL ×2 (08:11→20:15)
--- NOTE | 2022-09-07 08:37 | HO.VASCPN ---
Subjective Subjective Date of Service: 09/07/22 Patient reports: no new complaints and feels better Interval history: Sent 82-year-old gentleman status post right great toe amputation. He was transfused 2 units yesterday. Hemoglobin doing much better. In addition white count is down. Appears to be doing somewhat better now on vancomycin. Now for routine follow-up. Physical Exam Vital Signs: Vital Signs: Last Vital Signs Temp 97.4 F 09/07/22 07:49 Pulse 91 09/07/22 07:49 Resp 18 09/07/22 07:49 BP 135/67 09/07/22 07:49 Pulse Ox 96 09/07/22 07:49 O2 Del Method Room Air 09/07/22 07:49 O2 Flow Rate 2 09/06/22 07:51 Oxygen Flow Rate 2 09/06/22 10:00 BMI result Body Mass Index 28.8 Const: General: cooperative, healthy appearing and no acute distress Orientation/consciousness: oriented to person, oriented to place and oriented to time HEENT: Head: Yes normal to inspection Neck: Carotids: no bruits Chest: Chest palpation & inspection: normal inspection of the chest Resp: Effort & Inspection: normal respiratory effort and able to speak in complete sentences Auscultation: clear to auscultation bilaterally Cardio: Rate: regular rate Heart sounds: S1 normal heart sound present and S2 normal heart sound present GI: Inspection: Yes normal to inspection Skin: Other: Right great toe amputation site nonhealing. There is some bogginess and drainage. Erythema appears to be improving. General skin exam: no rashes or lesions noted Wounds: no wounds Neuro: General: oriented to person, oriented to place, oriented to time and CN's II-XI intact bilaterally Extrem: General: Yes normal to inspection, Yes full ROM and Yes no clubbing, cyanosis or edema Psych: Appearance: grossly normal and well kempt Speech and movement: Normal speech and movement present Affect: normal affect Progress Note: A&P Assessment and plan (1) Cellulitis of foot, right: Status: Acute Assessment and Plan: In short patient has a nonhealing amputation site along with cellulitis. The flaps do not appear viable as well on the closure over the great metatarsal. We will see how he does on antibiotics through the weekend. Agree with Infectious Disease evaluation. At the bare minimum he will require a transmetatarsal amputation. Would be better to wait until some of the cellulitis does resolved. In addition he is at high risk for BKA as he cannot be anticoagulated as needed or required for any vascular intervention. We will continue to monitor his status with you. Please note I will be away for the weekend and Dr. Grey will be covering. Time Spent With Patient Time: Total time managing care of this patient today ____ minutes. Procedures Date of Service Date of Service: 09/07/22 Quality Stroke Does the patient have a stroke diagnosis?: No VTE Prior VTE?: No VTE Risk Level:: Medical - moderate - high VTE Device Contraindication: Treatment Not Indicated VTE Drug Contraindication: N/A - Med Ordered
[2022-09-07 10:00] VITALS: O2SAT 98
--- NOTE | 2022-09-07 10:58 | P.PNIM_ITS ---
Subjective Subjective Date of Service: 09/07/22 Interval History: patient seen and examined at bedside. He is eating breakfast. Has no complaints. Denies any chest pain, no shortness of breath, no abdominal pain nausea vomiting, moving his bowels well. No urinary symptoms. denies any acute pain at this time. Overnight events Spoke to Dr. Land this morning, patient may require further amputation although Erythema is improving. Physical Exam Vital Signs: Vital Signs: Last Vital Signs Temp 97.4 F 09/07/22 07:49 Pulse 91 09/07/22 07:49 Resp 18 09/07/22 07:49 BP 135/67 09/07/22 07:49 Pulse Ox 98 09/07/22 10:00 O2 Del Method Room Air 09/07/22 10:00 O2 Flow Rate 2 09/06/22 07:51 Oxygen Flow Rate 2 09/06/22 10:00 BMI result Body Mass Index 28.8 Const: Other: awake alert, oriented x3 Resp: Other: lungs clear to auscultation bilaterally Cardio: Other: normal rate and rhythm Extrem: Other: Warm, Dry,dressing in place. has some erythema around site of surgery. Objective Data Active Medications Acetaminophen (Acetaminophen 325 Mg Tablet) 650 mg PO ONCE PRN PRN Reason: Pain, Mild (Pain Scale 1-3) Atorvastatin Calcium (Atorvastatin Calcium 20 Mg Tablet) 20 mg PO BEDTIME [facility] Last Admin: 09/06/22 20:55 Dose: 20 mg Documented By: DOTTIE Clotrimazole (Clotrimazole 1 % Cream 15 Gm Tube) 1 appl TOPICAL BID [facility]; Protocol Last Admin: 09/07/22 08:10 Dose: 1 appl Documented By: AKBAR Dextrose (Dextrose 50 % 25 Gm/50 Ml Syringe) 25 gm IVPUSH Q15M PRN; Protocol PRN Reason: per Hypoglycemia Standing Ord. Empagliflozin (Empagliflozin 10 Mg Tablet) 10 mg PO DAILY [facility] Last Admin: 09/07/22 08:10 Dose: 10 mg Documented By: AKBAR Ferrous Sulfate (Ferrous Sulfate 324 Mg Tablet.) 324 mg PO BIDWM [facility] Last Admin: 09/07/22 08:10 Dose: 324 mg Documented By: AKBAR Finasteride (Finasteride 5 Mg Tablet) 5 mg PO DAILY [facility] Last Admin: 09/07/22 08:10 Dose: 5 mg Documented By: AKBAR Glucose (Glucose Gel 15 Gm Gel..Gram.) 15 gm PO Q15M PRN; Protocol PRN Reason: per Hypoglycemia Standing Ord. Hydrocortisone (Hydrocortisone 1 % Cream 28.35 Gm Tube) 1 appl TOPICAL BID [facility]; Protocol Stop: 09/10/22 09:01 Last Admin: 09/07/22 08:11 Dose: 1 appl Documented By: AKBAR Vancomycin HCl 500 mg/ Sodium (Chloride) 110 mls @ 110 mls/hr IV Q24H [facility] Insulin Human Lispro (Insulin Lispro 100 Unit/Ml 3 Ml Vial) 0 unit SUBCUT QIDACHS [facility]; Protocol Last Admin: 09/07/22 08:10 Dose: 4 unit Documented By: AKBAR Morphine Sulfate (Morphine Sulfate 2 Mg/Ml Cartridge) 2 mg IVPUSH Q4H PRN; Protocol PRN Reason: Pain, Severe (Pain Scale 7-10) Oxycodone HCl (Oxycodone Hcl Immed Release 5 Mg Tablet) 5 mg PO Q4H PRN PRN Reason: Pain, Moderate(Pain Scale 4-6) Last Admin: 09/05/22 15:34 Dose: 5 mg Documented By: CATHERINE Pantoprazole Sodium (Pantoprazole Sodium 40 Mg/10 Ml Vial) 40 mg IVPUSH BID@0630,1630 [facility] Last Admin: 09/07/22 05:42 Dose: 40 mg Documented By: DOTTIE Pharmacy Consult (Consult Rx Vancomycin Dosing) 1 each MISCELLANE DAILY PRN PRN Reason: Consult order Sodium Bicarbonate (Sodium Bicarbonate 650 Mg Tablet) 650 mg PO TID [facility] Last Admin: 09/07/22 08:10 Dose: 650 mg Documented By: AKBAR Sodium Chloride (0.9 % Sodium Chloride Flush 3 Ml Syringe) 3 ml IVFLUSH QSHIFT [facility] Last Admin: 09/07/22 08:10 Dose: 3 ml Documented By: AKBAR Vitamin D (Cholecalciferol (Vitamin D3) 25 Mcg Tablet) 50 mcg PO DAILY [facility] Last Admin: 09/07/22 08:10 Dose: 50 mcg Documented By: AKBAR Labs 09/07/22 05:52 09/07/22 05:52 Labs: Laboratory Results - last 24 hr 09/06/22 09/06/22 09/06/22 07:45 10:59 13:31 MCV MCH MCHC RDW Plt Count MPV Absolute Nucleated RBC Nucleated RBC % (auto) Anion Gap Estim Creat Clear Calc Estimated GFR POC Glucose 190 H Random Glucose Calcium Stool Occult Blood POSITIVE Random Vancomycin Blood Type O Positive Antibody Screen NEGATIVE Crossmatch See Detail 09/06/22 09/06/22 09/06/22 16:09 16:10 20:40 MCV MCH MCHC RDW Plt Count MPV Absolute Nucleated RBC Nucleated RBC % (auto) Anion Gap Estim Creat Clear Calc Estimated GFR POC Glucose 212 H 234 H Random Glucose Calcium Stool Occult Blood Random Vancomycin 19.7 Blood Type Antibody Screen Crossmatch 09/07/22 09/07/22 09/07/22 05:52 05:52 05:52 MCV 89.2 MCH 29.8 MCHC 33.4 RDW 15.2 Plt Count 225 MPV 10.4 Absolute Nucleated RBC 0.000 Nucleated RBC % (auto) 0.0 Anion Gap 14 Estim Creat Clear Calc 21.6 Estimated GFR 21 POC Glucose Random Glucose 214 H Calcium 8.6 Stool Occult Blood Random Vancomycin 18.9 Blood Type Antibody Screen Crossmatch 09/07/22 07:20 MCV MCH MCHC RDW Plt Count MPV Absolute Nucleated RBC Nucleated RBC % (auto) Anion Gap Estim Creat Clear Calc Estimated GFR POC Glucose 204 H Random Glucose Calcium Stool Occult Blood Random Vancomycin Blood Type Antibody Screen Crossmatch Assessment and Plan (1) Ulcer of right 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: Status: Acute (2) Amputation of right great toe: Status: Acute (3) Acute on chronic blood loss anemia: Status: Acute (4) Cellulitis: Status: Acute (5) Hypotension: Status: Acute Plan An 81 years old male with PMH of CKD, CHF, recent OM, DM, HTN , PAD among others presented to the hospital for elective surgical amputation of right great toe. # Right great toe amputation/cellulitis - Operated on 09/03, - concern for non-healing amputation site along with celllulitis - will obtain infectious disease consult - continue IV abx for now - will follow along surgery # Acute loss anemia on Chronic anemia 2/2 CKD - s/p 2 units of pRBC 09/06 - hgb stable this am. - stool occult positive - as pt is stable and hgb stable since transfusion, recommend fup op for evaluation of stool occult positive anemia l - dc heparin - will consider GI eval inp if has further drop in Hgb follow H&H # Hypotension concern 2/2 blood loss, Med - resolved - monitor bp -does not appear to be on bp meds at home #BPH Continue Finasteride and Doxazosin #DMII POC, diabetic diet Jardiance SSI #HLD Statin Thank you for the consult, will continue to monitor with you. Time Spent With Patient Time: Total time managing care of this patient today ____ minutes. Quality Stroke Does the patient have a stroke diagnosis?: No VTE Prior VTE?: No VTE Risk Level:: Medical - moderate - high VTE Device Contraindication: Treatment Not Indicated VTE Drug Contraindication: N/A - Med Ordered
[2022-09-07 11:18] LABS: Glucose, Whole Blood 243 mg/dL (60-115)
[2022-09-07 11:44] VITALS: BMI 28.8
[2022-09-07 14:39] LABS: Vancomycin Random 17.3 mcg/mL (15-20)
[2022-09-07 15:32] VITALS: BP 140/73; PULSE 97; RESP 18; TEMP 37.2; O2SAT 95
[2022-09-07 16:11] LABS: Glucose, Whole Blood 285 mg/dL (60-115)
--- NOTE | 2022-09-07 17:04 | P.CNID_ITS ---
History of Present Illness Data of Consult Service Date: 09/07/22 Requesting physician: [place] Primary Care Provider: RADHA Bonilla HPI Reason for consult: foot infection He presents for right foot nonhealing amputation site right great toe. He has h/o MSSA,strep viridans right foot He has had IV Ertapenem done 08/23. Review of Systems Review of Systems: Yes all other systems are reviewed and are negative PMFSH Past Medical History Medical History Acute osteomyelitis Back pain CKD (chronic kidney disease) stage 3, GFR 30-59 ml/min Congestive heart failure with LV diastolic dysfunction, NYHA class 3 Decubitus ulcer, heel Diabetes mellitus Gram-negative bacteremia H/O cardiac pacemaker Heart block History of COVID-19 Hyperlipidemia Hypertension Infection of right foot Iron deficiency anemia PAD (peripheral artery disease) Type 2 diabetes mellitus with unspecified complications Ulcer of left heel Ulcer of right 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 Urinary retention Family History Family History Brother Testicular cancer Family history: reviewed and not pertinent Surgical History Surgical History History of atherectomy History of back surgery History of esophagogastroduodenoscopy History of left hip replacement Hx of cataract extraction Hx of colonoscopy Social History Social History Household Members: Spouse Household Members Other:: 2 Housing: House Do you presently have visiting nurse or other home services: Yes Alcohol intake: former Patient Tobacco Use Status: Former Tobacco user Quit Date: 15 years Tobacco use type: Cigarette Use of substances other than those prescribed or required for medical reasons: No Currently Displaying Signs/Symptoms of Drug Intoxication Withdrawal: No Have you been hit, kicked, punched, or otherwise hurt by someone within the past year? If so, by whom?: No Do you feel safe in your current relationship?: No Is there a partner from a previous relationship who is making you feel unsafe now?: No Are you made to feel afraid or neglected: No Are you DNR?: No Advance Directives: Yes Advance Directives on File: Yes Advance Directives Date on File: 07/12/22 Do you have thoughts of harming others: None Do you have a plan to hurt others: No Plan Recently lost weight without trying: No Eating poorly because of decreased appetite: No Nutrition Risks: No Nutritional Risk Poor oral hygiene: No service: No Current occupational status: retired Meds Allergies Allergy/AdvReac Type Severity Reaction Status Date / Time lisinopril [LISINOPRIL] Allergy Severe ANGIOEDEMA Verified 08/30/22 10:56 Active Medications: Current Medications Acetaminophen (Acetaminophen 325 Mg Tablet) 650 mg PO ONCE PRN PRN Reason: Pain, Mild (Pain Scale 1-3) Atorvastatin Calcium (Atorvastatin Calcium 20 Mg Tablet) 20 mg PO BEDTIME [facility] Last Admin: 09/06/22 20:55 Dose: 20 mg Clotrimazole (Clotrimazole 1 % Cream 15 Gm Tube) 1 appl TOPICAL BID [facility]; Protocol Last Admin: 09/07/22 08:10 Dose: 1 appl Dextrose (Dextrose 50 % 25 Gm/50 Ml Syringe) 25 gm IVPUSH Q15M PRN; Protocol PRN Reason: per Hypoglycemia Standing Ord. Empagliflozin (Empagliflozin 10 Mg Tablet) 10 mg PO DAILY [facility] Last Admin: 09/07/22 08:10 Dose: 10 mg Ferrous Sulfate (Ferrous Sulfate 324 Mg Tablet.) 324 mg PO BIDWM [facility] Last Admin: 09/07/22 16:21 Dose: 324 mg Finasteride (Finasteride 5 Mg Tablet) 5 mg PO DAILY [facility] Last Admin: 09/07/22 08:10 Dose: 5 mg Glucose (Glucose Gel 15 Gm Gel..Gram.) 15 gm PO Q15M PRN; Protocol PRN Reason: per Hypoglycemia Standing Ord. Hydrocortisone (Hydrocortisone 1 % Cream 28.35 Gm Tube) 1 appl TOPICAL BID [facility]; Protocol Stop: 09/10/22 09:01 Last Admin: 09/07/22 08:11 Dose: 1 appl Vancomycin HCl 500 mg/ Sodium (Chloride) 110 mls @ 110 mls/hr IV Q24H [facility] Insulin Human Lispro (Insulin Lispro 100 Unit/Ml 3 Ml Vial) 0 unit SUBCUT QIDACHS [facility]; Protocol Last Admin: 09/07/22 16:21 Dose: 6 unit Morphine Sulfate (Morphine Sulfate 2 Mg/Ml Cartridge) 2 mg IVPUSH Q4H PRN; Protocol PRN Reason: Pain, Severe (Pain Scale 7-10) Oxycodone HCl (Oxycodone Hcl Immed Release 5 Mg Tablet) 5 mg PO Q4H PRN PRN Reason: Pain, Moderate(Pain Scale 4-6) Last Admin: 09/05/22 15:34 Dose: 5 mg Pantoprazole Sodium (Pantoprazole Sodium 40 Mg/10 Ml Vial) 40 mg IVPUSH BID@0630,1630 [facility] Last Admin: 09/07/22 16:21 Dose: 40 mg Pharmacy Consult (Consult Rx Vancomycin Dosing) 1 each MISCELLANE DAILY PRN PRN Reason: Consult order Sodium Bicarbonate (Sodium Bicarbonate 650 Mg Tablet) 650 mg PO TID [facility] Last Admin: 09/07/22 14:51 Dose: 650 mg Sodium Chloride (0.9 % Sodium Chloride Flush 3 Ml Syringe) 3 ml IVFLUSH QSHIFT [facility] Last Admin: 09/07/22 16:21 Dose: 3 ml Vitamin D (Cholecalciferol (Vitamin D3) 25 Mcg Tablet) 50 mcg PO DAILY [facility] Last Admin: 09/07/22 08:10 Dose: 50 mcg Home Medications Medication Instructions Recorded Confirmed Last Taken Type simvastatin 40 mg tablet 40 mg PO BEDTIME 03/17/20 09/03/22 09/02/22 History blood sugar diagnostic (OneTouch #10 ea 11/11/20 09/03/22 09/03/22 History Verio test strips) pantoprazole 20 mg tablet,delayed 20 mg PO DAILY 11/11/20 09/03/22 09/03/22 History release cholecalciferol (vitamin D3) 50 50 mcg PO DAILY 07/11/22 09/03/22 09/03/22 History mcg (2,000 unit) tablet empagliflozin 10 mg tablet 10 mg PO DAILY 07/11/22 09/03/22 09/03/22 History (Jardiance) Physical Exam Vital Signs: Vital Signs: Last Vital Signs Temp 98.9 F 09/07/22 15:32 Pulse 97 09/07/22 15:32 Resp 18 09/07/22 15:32 BP 140/73 H 09/07/22 15:32 Pulse Ox 95 09/07/22 15:32 O2 Del Method Room Air 09/07/22 15:32 O2 Flow Rate 2 09/06/22 07:51 Oxygen Flow Rate 2 09/06/22 10:00 BMI result Body Mass Index 28.8 Const: General: cooperative HEENT: Head: Yes normal to inspection Face and sinus: Yes normal facial exam Mouth: Normal oral and palatal mucosa present Teeth and gingiva: dentition normal Eyes: General: appearance normal, both eyes and all related structures Pupils: Equal, round and reactive pupils present Resp: Effort & Inspection: normal respiratory effort Cardio: Rate: regular rate Rhythm: regular rhythm GI: Palpation (GI): Soft to palpation and nontender : General: Yes no CVA tenderness Back/Spine/Pelvis: Back: no CVA tenderness Skin: General skin exam: no rashes or lesions noted Neuro: General: moves all extremities Cranial nerves: Yes Equal, round and reactive pupils present Extrem: Other: foot still redness amp site General: Yes normal to inspection Psych: Appearance: grossly normal Results Labs 09/07/22 05:52 09/07/22 05:52 Labs: Short CBC 09/07/22 Range/Units 05:52 WBC 11.0 H (4.8-10.8) X10*3/uL Hgb 9.9 L D (14.0-18.0) g/dl Hct 29.6 L D (42.0-52.0) % Plt Count 225 (160-400) X10*3/uL BMP 09/07/22 05:52 Sodium 136 Potassium 3.9 Chloride 107 Carbon Dioxide 19 L BUN 49 H Creatinine 2.94 H Calcium 8.6 Assessment and Plan (1) Amputation of right great toe: Status: Acute He has had multiple days of antibiotics. Surgical therapy prn need at this time per Dr Land. (2) Hypotension: Status: Acute Time Spent With Patient Time: Total time managing care of this patient today ____ minutes.
[2022-09-07 19:18] VITALS: BP 148/74; PULSE 109; RESP 18; TEMP 36.2; O2SAT 95
[2022-09-07] MEDS: Atorvastatin Calcium 20 MG TABLET PO (20:14)
[2022-09-07 20:17] LABS: Glucose, Whole Blood 291 mg/dL (60-115)
[2022-09-08 03:08] VITALS: BP 115/61; PULSE 90; RESP 16; TEMP 36.8; O2SAT 95
[2022-09-08] MEDS: Pantoprazole Sodium 40 MG/10 ML VIAL IVPUSH ×2 (05:50→16:54)
[2022-09-08 06:32] LABS: Vancomycin Random 16.1 mcg/mL (15-20)
[2022-09-08 07:11] VITALS: BP 114/60; PULSE 80; RESP 18; TEMP 36.8; O2SAT 94
[2022-09-08 07:26] LABS: Glucose, Whole Blood 192 mg/dL (60-115)
[2022-09-08 07:48] LABS: Creatinine Clr Calc Pharmacy 24.5; Estimated Glomerular Filt Rate 24
[2022-09-08] MEDS: Finasteride 5 MG TABLET PO (07:48)
[2022-09-08] MEDS: Hydrocortisone 1 % Cream 28.35 GM TUBE 1 APPL TOPICAL ×2 (07:48→20:00)
[2022-09-08] MEDS: Insulin Lispro 100 UNIT/ML 3 ML VIAL SUBCUT ×4 (07:48→21:53)
[2022-09-08] MEDS: Ferrous Sulfate 324 MG TABLET.DR PO ×2 (07:48→16:54)
[2022-09-08] MEDS: Cholecalciferol (Vitamin D3) 25 MCG TABLET 50 MCG PO (07:48)
[2022-09-08] MEDS: Sodium Bicarbonate 650 MG TABLET PO ×3 (07:48→19:58)
[2022-09-08] MEDS: 0.9 % Sodium Chloride Flush 3 ML SYRINGE IVFLUSH ×3 (07:48→21:54)
[2022-09-08] MEDS: Empagliflozin 10 MG TABLET PO (07:48)
[2022-09-08] MEDS: Clotrimazole 1 % Cream 15 GM TUBE 1 APPL TOPICAL ×2 (07:49→19:59)
[2022-09-08 08:13] LABS: MANUAL DIFF FLAG NO
[2022-09-08 08:17] LABS: Basophils Percent Auto 0.3 % (0-2); Eosinophils Absolute Auto 0.1 X10*3/uL (0.0-0.4); Eosinophils Percent Auto 1.3 % (0-4); Hematocrit 29.2 % (42.0-52.0); Hemoglobin 9.5 g/dl (14.0-18.0); Lymphocytes Absolute Auto 0.6 X10*3/uL (1.2-4.9); Lymphocytes Percent Auto 5.9 % (20-40); Mean Corpuscular HGB Conc 32.5 g/dl (31.0-36.0); Mean Corpuscular Hemoglobin 29.1 pg (27.0-33.0); Mean Corpuscular Volume 89.6 fL (80.0-98.0); Mean Platelet Volume 10.2 fL (9.4-12.4); Monocytes Absolute Auto 0.7 X10*3/uL (0.1-1.2); Monocytes Percent Auto 6.8 % (2-11); Neutrophils Absolute Auto 8.1 x10*3/uL (2.0-8.3); Neutrophils Percent Auto 84.7 % (45-73); Platelet Count 235 X10*3/uL (160-400); Red Blood Count 3.26 X10*6/uL (4.60-5.80); Red Cell Distribution Width 15.2 % (11.0-16.0); White Blood Count 9.6 X10*3/uL (4.8-10.8)
--- NOTE | 2022-09-08 08:45 | HO.PM.IMPN ---
Subjective Subjective Date of Service: 09/08/22 Interval History: Patient seen and examined at bedside having breakfast. He has no acute complaint. Has no pain in his feet at this time. Reports no fever. No overnight events. No nausea or vomiting, no abdominal pain, no diarrhea constipation, no urinary symptoms. Physical Exam Vital Signs: Vital Signs: Last Vital Signs Temp 98.2 F 09/08/22 07:11 Pulse 80 09/08/22 07:11 Resp 18 09/08/22 07:11 BP 114/60 09/08/22 07:11 Pulse Ox 94 09/08/22 07:11 O2 Del Method Room Air 09/08/22 07:11 O2 Flow Rate 2 09/06/22 07:51 Oxygen Flow Rate 2 09/06/22 10:00 BMI result Body Mass Index 28.8 Const: Other: Patient awake alert x3 Resp: Other: Normal respiratory rate, Clear to auscultation bilaterally GI: Other: Abdomen is soft, nontender Extrem: Other: No lower extremity edema, Dressing around right and left foot, right foot with slight erythema, decreased redness Objective Data Active Medications Acetaminophen (Acetaminophen 325 Mg Tablet) 650 mg PO ONCE PRN PRN Reason: Pain, Mild (Pain Scale 1-3) Atorvastatin Calcium (Atorvastatin Calcium 20 Mg Tablet) 20 mg PO BEDTIME [facility] Last Admin: 09/07/22 20:14 Dose: 20 mg Documented By: KARI Clotrimazole (Clotrimazole 1 % Cream 15 Gm Tube) 1 appl TOPICAL BID [facility]; Protocol Last Admin: 09/08/22 07:49 Dose: 1 appl Documented By: ELIE Dextrose (Dextrose 50 % 25 Gm/50 Ml Syringe) 25 gm IVPUSH Q15M PRN; Protocol PRN Reason: per Hypoglycemia Standing Ord. Empagliflozin (Empagliflozin 10 Mg Tablet) 10 mg PO DAILY [facility] Last Admin: 09/08/22 07:48 Dose: 10 mg Documented By: ELIE Ferrous Sulfate (Ferrous Sulfate 324 Mg Tablet.) 324 mg PO BIDWM [facility] Last Admin: 09/08/22 07:48 Dose: 324 mg Documented By: ELIE Finasteride (Finasteride 5 Mg Tablet) 5 mg PO DAILY [facility] Last Admin: 09/08/22 07:48 Dose: 5 mg Documented By: ELIE Glucose (Glucose Gel 15 Gm Gel..Gram.) 15 gm PO Q15M PRN; Protocol PRN Reason: per Hypoglycemia Standing Ord. Hydrocortisone (Hydrocortisone 1 % Cream 28.35 Gm Tube) 1 appl TOPICAL BID [facility]; Protocol Stop: 09/10/22 09:01 Last Admin: 09/08/22 07:48 Dose: 1 appl Documented By: ELIE Vancomycin HCl 500 mg/ Sodium (Chloride) 110 mls @ 110 mls/hr IV Q24H [facility] Insulin Human Lispro (Insulin Lispro 100 Unit/Ml 3 Ml Vial) 0 unit SUBCUT QIDACHS [facility]; Protocol Last Admin: 09/08/22 07:48 Dose: 2 unit Documented By: ELIE Morphine Sulfate (Morphine Sulfate 2 Mg/Ml Cartridge) 2 mg IVPUSH Q4H PRN; Protocol PRN Reason: Pain, Severe (Pain Scale 7-10) Oxycodone HCl (Oxycodone Hcl Immed Release 5 Mg Tablet) 5 mg PO Q4H PRN PRN Reason: Pain, Moderate(Pain Scale 4-6) Last Admin: 09/05/22 15:34 Dose: 5 mg Documented By: CATHERINE Pantoprazole Sodium (Pantoprazole Sodium 40 Mg/10 Ml Vial) 40 mg IVPUSH BID@0630,1630 [facility] Last Admin: 09/08/22 05:50 Dose: 40 mg Documented By: KARI Pharmacy Consult (Consult Rx Vancomycin Dosing) 1 each MISCELLANE DAILY PRN PRN Reason: Consult order Sodium Bicarbonate (Sodium Bicarbonate 650 Mg Tablet) 650 mg PO TID [facility] Last Admin: 09/08/22 07:48 Dose: 650 mg Documented By: ELIE Sodium Chloride (0.9 % Sodium Chloride Flush 3 Ml Syringe) 3 ml IVFLUSH QSHIFT [facility] Last Admin: 09/08/22 07:48 Dose: 3 ml Documented By: ELIE Vitamin D (Cholecalciferol (Vitamin D3) 25 Mcg Tablet) 50 mcg PO DAILY [facility] Last Admin: 09/08/22 07:48 Dose: 50 mcg Documented By: ELIE Labs 09/08/22 07:16 09/08/22 06:59 Labs: Laboratory Results - last 24 hr 06/22/23 06/23/23 06/23/23 05:32 11:14 14:09 MCV MCH MCHC RDW Plt Count MPV Immature Gran % (Auto) Neut % (Auto) Lymph % (Auto) [place] % (Auto) Eos % (Auto) Baso % (Auto) Lymph # (Auto) [place] # (Auto) Eos # (Auto) Baso # (Auto) Abs Immat Gran (auto) Absolute Neuts (auto) Absolute Nucleated RBC Nucleated RBC % (auto) Smear Path Review SEE NOTE Estim Creat Clear Calc Estimated GFR POC Glucose 243 H Random Vancomycin 17.3 09/07/22 09/07/22 09/08/22 16:07 20:08 05:14 MCV MCH MCHC RDW Plt Count MPV Immature Gran % (Auto) Neut % (Auto) Lymph % (Auto) [place] % (Auto) Eos % (Auto) Baso % (Auto) Lymph # (Auto) [place] # (Auto) Eos # (Auto) Baso # (Auto) Abs Immat Gran (auto) Absolute Neuts (auto) Absolute Nucleated RBC Nucleated RBC % (auto) Smear Path Review Estim Creat Clear Calc Estimated GFR POC Glucose 285 H 291 H Random Vancomycin 16.1 09/08/22 09/08/22 09/08/22 06:59 07:07 07:16 MCV 89.6 MCH 29.1 MCHC 32.5 RDW 15.2 Plt Count 235 MPV 10.2 Immature Gran % (Auto) 1.0 H Neut % (Auto) 84.7 H Lymph % (Auto) 5.9 L [place] % (Auto) 6.8 Eos % (Auto) 1.3 Baso % (Auto) 0.3 Lymph # (Auto) 0.6 L [place] # (Auto) 0.7 Eos # (Auto) 0.1 Baso # (Auto) 0.0 Abs Immat Gran (auto) 0.10 H Absolute Neuts (auto) 8.1 Absolute Nucleated RBC 0.000 Nucleated RBC % (auto) 0.0 Smear Path Review Estim Creat Clear Calc 24.5 Estimated GFR 24 POC Glucose 192 H Random Vancomycin Assessment and Plan (1) Amputation of right great toe: Status: Acute (2) Acute on chronic blood loss anemia: Status: Acute (3) Cellulitis: Status: Acute Plan An 81 years old male with PMH of CKD, CHF, recent OM, DM, HTN , PAD among others presented to the hospital for elective surgical amputation of right great toe. # Right great toe amputation/cellulitis - Operated on 09/03, - concern for non-healing amputation site along with cellulitis - ID consulted - continue IV abx for now - will follow along surgery # Acute loss anemia on Chronic anemia 2/2 CKD - s/p 2 units of pRBC 09/06 - hgb stable - stool occult positive - as pt is stable and hgb stable since transfusion, recommend fup op for evaluation of stool occult positive anemia - dc heparin - will consider GI eval inp if has further drop in Hgb - follow H&H # Hypotension - resolved - monitor bp #BPH - Continue Finasteride and Doxazosin #DMII POC, diabetic diet Jardiance SSI #HLD Statin Thank you for the consult, will continue to monitor with you. Time Spent With Patient Time: Total time managing care of this patient today ____ minutes. Quality Stroke Does the patient have a stroke diagnosis?: No VTE Prior VTE?: No VTE Risk Level:: Medical - moderate - high VTE Device Contraindication: Treatment Not Indicated VTE Drug Contraindication: N/A - Med Ordered
[2022-09-08 09:50] VITALS: O2SAT 96
[2022-09-08 11:27] LABS: Glucose, Whole Blood 263 mg/dL (60-115)
[2022-09-08 15:00] LABS: Vancomycin Trough 14.5 mcg/mL (10.0-20.0)
[2022-09-08 15:38] VITALS: BP 156/78; PULSE 92; RESP 18; TEMP 36.9; O2SAT 96
[2022-09-08 16:34] LABS: Glucose, Whole Blood 319 mg/dL (60-115)
[2022-09-08 19:51] VITALS: BP 132/71; PULSE 88; RESP 16; TEMP 36.5; O2SAT 98
[2022-09-08] MEDS: Acetaminophen 325 MG TABLET 650 MG PO (19:58)
[2022-09-08] MEDS: Atorvastatin Calcium 20 MG TABLET PO (19:58)
[2022-09-08] MEDS: vancomycin HCL 500 MG in 0.9 % Sodium Chloride 100 ML 110 MG IV (20:31)
[2022-09-08 21:07] LABS: Glucose, Whole Blood 276 mg/dL (60-115)
[2022-09-09 04:01] VITALS: BP 131/72; PULSE 92; RESP 16; TEMP 36.1; O2SAT 100
[2022-09-09] MEDS: Pantoprazole Sodium 40 MG/10 ML VIAL IVPUSH (06:14)
--- NOTE | 2022-09-09 06:57 | HE.PHANOTE ---
Addendum entered by Radha Ochoa [facility] 09/09/22 06:58: Next level to be drawn 09/09 @1900 Original Note: RE: vanco Level on 09/08/22 @1429 came back at 14.5mg/L. One time 500mg dose given @2030; next level to be drawn 09/09 @1700
[2022-09-09 07:21] VITALS: BP 137/65; PULSE 88; RESP 18; TEMP 36.8; O2SAT 94
[2022-09-09 07:31] LABS: Glucose, Whole Blood 177 mg/dL (60-115)
[2022-09-09] MEDS: 0.9 % Sodium Chloride Flush 3 ML SYRINGE IVFLUSH ×3 (07:40→21:51)
[2022-09-09] MEDS: Empagliflozin 10 MG TABLET PO (07:41)
[2022-09-09] MEDS: Cholecalciferol (Vitamin D3) 25 MCG TABLET 50 MCG PO (07:41)
[2022-09-09] MEDS: Finasteride 5 MG TABLET PO (07:41)
[2022-09-09] MEDS: Sodium Bicarbonate 650 MG TABLET PO ×3 (07:41→21:51)
[2022-09-09] MEDS: Ferrous Sulfate 324 MG TABLET.DR PO ×2 (07:41→16:36)
[2022-09-09] MEDS: Insulin Lispro 100 UNIT/ML 3 ML VIAL SUBCUT ×4 (07:41→21:51)
[2022-09-09] MEDS: Clotrimazole 1 % Cream 15 GM TUBE 1 APPL TOPICAL ×2 (07:42→21:55)
[2022-09-09] MEDS: Hydrocortisone 1 % Cream 28.35 GM TUBE 1 APPL TOPICAL ×2 (07:42→21:55)
[2022-09-09 08:54] LABS: Creatinine Clr Calc Pharmacy 25.8; Estimated Glomerular Filt Rate 25
[2022-09-09 10:00] VITALS: O2SAT 96
[2022-09-09 11:56] LABS: Glucose, Whole Blood 191 mg/dL (60-115)
[2022-09-09 15:58] VITALS: BP 130/65; PULSE 93; RESP 18; TEMP 36.3; O2SAT 94
[2022-09-09 16:21] LABS: Glucose, Whole Blood 318 mg/dL (60-115)
[2022-09-09 19:57] VITALS: BP 142/69; PULSE 97; RESP 18; TEMP 36.6; O2SAT 94
[2022-09-09 20:19] LABS: Vancomycin Random 18.1 mcg/mL (15-20)
[2022-09-09 20:34] LABS: Glucose, Whole Blood 279 mg/dL (60-115)
[2022-09-09] MEDS: Atorvastatin Calcium 20 MG TABLET PO (21:51)
[2022-09-10 04:00] VITALS: BP 128/61; PULSE 82; RESP 16; TEMP 37.1; O2SAT 96
[2022-09-10 07:08] LABS: Hematocrit 29.7 % (42.0-52.0); Hemoglobin 9.6 g/dl (14.0-18.0); Mean Corpuscular HGB Conc 32.3 g/dl (31.0-36.0); Mean Corpuscular Hemoglobin 28.9 pg (27.0-33.0); Mean Corpuscular Volume 89.5 fL (80.0-98.0); Mean Platelet Volume 10.6 fL (9.4-12.4); Platelet Count 197 X10*3/uL (160-400); Red Blood Count 3.32 X10*6/uL (4.60-5.80); Red Cell Distribution Width 15.4 % (11.0-16.0); White Blood Count 9.8 X10*3/uL (4.8-10.8)
[2022-09-10 07:16] VITALS: BP 122/61; PULSE 83; RESP 16; TEMP 36.4; O2SAT 96
[2022-09-10 07:24] LABS: Glucose, Whole Blood 183 mg/dL (60-115)
[2022-09-10] MEDS: Cholecalciferol (Vitamin D3) 25 MCG TABLET 50 MCG PO (08:03)
[2022-09-10] MEDS: Sodium Bicarbonate 650 MG TABLET PO ×3 (08:03→20:40)
[2022-09-10] MEDS: Insulin Lispro 100 UNIT/ML 3 ML VIAL SUBCUT ×4 (08:04→20:40)
[2022-09-10] MEDS: Ferrous Sulfate 324 MG TABLET.DR PO ×2 (08:04→16:29)
[2022-09-10] MEDS: Finasteride 5 MG TABLET PO (08:04)
[2022-09-10] MEDS: Empagliflozin 10 MG TABLET PO (08:04)
[2022-09-10] MEDS: 0.9 % Sodium Chloride Flush 3 ML SYRINGE IVFLUSH ×3 (08:04→20:48)
[2022-09-10] MEDS: Clotrimazole 1 % Cream 15 GM TUBE 1 APPL TOPICAL ×2 (08:05→20:49)
[2022-09-10] MEDS: Hydrocortisone 1 % Cream 28.35 GM TUBE 1 APPL TOPICAL (08:31)
[2022-09-10 08:37] LABS: Anion Gap 14 (12-20); Blood Urea Nitrogen 44 mg/dL (9-16); Calcium 8.5 mg/dL (8.4-10.2); Carbon Dioxide 21 mmol/L (22-29); Chloride 105 mmol/L (96-108); Creatinine Clr Calc Pharmacy 22.3; Estimated Glomerular Filt Rate 21; Glucose Random 185 mg/dL (60-115); Potassium 3.5 mmol/L (3.3-5.1); Sodium 136 mmol/L (135-145)
--- NOTE | 2022-09-10 09:02 | HO.PM.IMPN ---
Subjective Subjective Date of Service: 09/10/22 Interval History: Seen and evaluated Feels overall better Stable H&H waiting surgical eval to decide the next step on treatment no other overnight events Review of Systems Review of Systems: Yes all other systems are reviewed and are negative Physical Exam Vital Signs: Vital Signs: Last Vital Signs Temp 97.6 F 09/10/22 07:16 Pulse 83 09/10/22 07:16 Resp 16 09/10/22 07:16 BP 122/61 09/10/22 07:16 Pulse Ox 96 09/10/22 07:16 O2 Del Method Room Air 09/10/22 07:16 O2 Flow Rate 2 09/06/22 07:51 Oxygen Flow Rate 2 09/06/22 10:00 BMI result Body Mass Index 28.8 Const: Other: Constitutional : Awake, interactive, not in distress Neck : Normal inspection, Supple Cardiovascular : RRR, no JVP, no lower extremity edema Respiratory : good bilateral air entry, no crackles, wheezes or rhonchi Gastrointestinal: soft, lax, Normal bowel sounds, Non tender Skin : Warm, Dry, Rt foot resolving erythema and warmth around the area of surgery and dressing Neurological : Alert & oriented x3, No focal deficit Objective Data Active Medications Atorvastatin Calcium (Atorvastatin Calcium 20 Mg Tablet) 20 mg PO BEDTIME [facility] Last Admin: 09/09/22 21:51 Dose: 20 mg Documented By: MCKINLEY Clotrimazole (Clotrimazole 1 % Cream 15 Gm Tube) 1 appl TOPICAL BID [facility]; Protocol Last Admin: 09/10/22 08:05 Dose: 1 appl Documented By: HERNÁN Dextrose (Dextrose 50 % 25 Gm/50 Ml Syringe) 25 gm IVPUSH Q15M PRN; Protocol PRN Reason: per Hypoglycemia Standing Ord. Empagliflozin (Empagliflozin 10 Mg Tablet) 10 mg PO DAILY [facility] Last Admin: 09/10/22 08:04 Dose: 10 mg Documented By: HERNÁN Ferrous Sulfate (Ferrous Sulfate 324 Mg Tablet.) 324 mg PO BIDWM [facility] Last Admin: 09/10/22 08:04 Dose: 324 mg Documented By: HERNÁN Finasteride (Finasteride 5 Mg Tablet) 5 mg PO DAILY [facility] Last Admin: 09/10/22 08:04 Dose: 5 mg Documented By: HERNÁN Glucose (Glucose Gel 15 Gm Gel..Gram.) 15 gm PO Q15M PRN; Protocol PRN Reason: per Hypoglycemia Standing Ord. Vancomycin HCl 500 mg/ Sodium (Chloride) 110 mls @ 110 mls/hr IV Q24H [facility] Insulin Human Lispro (Insulin Lispro 100 Unit/Ml 3 Ml Vial) 0 unit SUBCUT QIDACHS [facility]; Protocol Last Admin: 09/10/22 08:04 Dose: 2 unit Documented By: HERNÁN Pharmacy Consult (Consult Rx Vancomycin Dosing) 1 each MISCELLANE DAILY PRN PRN Reason: Consult order Sodium Bicarbonate (Sodium Bicarbonate 650 Mg Tablet) 650 mg PO TID [facility] Last Admin: 09/10/22 08:03 Dose: 650 mg Documented By: HERNÁN Sodium Chloride (0.9 % Sodium Chloride Flush 3 Ml Syringe) 3 ml IVFLUSH QSHIFT [facility] Last Admin: 09/10/22 08:04 Dose: 3 ml Documented By: HERNÁN Vitamin D (Cholecalciferol (Vitamin D3) 25 Mcg Tablet) 50 mcg PO DAILY [facility] Last Admin: 09/10/22 08:03 Dose: 50 mcg Documented By: HERNÁN Labs 09/10/22 05:34 09/10/22 05:34 Labs: Laboratory Results - last 24 hr 09/09/22 09/09/22 09/09/22 11:51 16:13 19:11 MCV MCH MCHC RDW Plt Count MPV Absolute Nucleated RBC Nucleated RBC % (auto) Anion Gap Estim Creat Clear Calc Estimated GFR POC Glucose 191 H 318 H Random Glucose Calcium Random Vancomycin 18.1 09/09/22 09/10/22 09/10/22 20:24 05:34 05:34 MCV 89.5 MCH 28.9 MCHC 32.3 RDW 15.4 Plt Count 197 MPV 10.6 Absolute Nucleated RBC 0.000 Nucleated RBC % (auto) 0.0 Anion Gap 14 Estim Creat Clear Calc 22.3 Estimated GFR 21 POC Glucose 279 H Random Glucose 185 H Calcium 8.5 Random Vancomycin 09/10/22 07:19 MCV MCH MCHC RDW Plt Count MPV Absolute Nucleated RBC Nucleated RBC % (auto) Anion Gap Estim Creat Clear Calc Estimated GFR POC Glucose 183 H Random Glucose Calcium Random Vancomycin Assessment and Plan (1) Acute on chronic blood loss anemia: Status: Acute Plan An 81 years old male with PMH of CKD, CHF, recent OM, DM, HTN , PAD among others presented to the hospital for elective surgical amputation of right great toe. # Right great toe amputation/cellulitis Operated on 09/03 concern for non-healing amputation site along with cellulitis ID consulted continue IV Vancomycin follow along surgery # Acute loss anemia on Chronic anemia 2/2 CKD Stable s/p 2 units of pRBC 09/06 stool occult positive, as pt is stable and hgb stable since transfusion, recommend fup op for evaluation of stool occult positive anemia consider GI eval inp if has further drop in Hgb follow H&H #BPH Continue Finasteride and Doxazosin #DMII POC, diabetic diet Jardiance SSI #HLD Statin DVT PPx SCDs Thank you for the consult, will continue to monitor with you. Time Spent With Patient Time: Total time managing care of this patient today ____ minutes. Quality Stroke Does the patient have a stroke diagnosis?: No VTE Prior VTE?: No VTE Risk Level:: Medical - moderate - high VTE Device Contraindication: Treatment Not Indicated VTE Drug Contraindication: N/A - Med Ordered
--- NOTE | 2022-09-10 09:22 | P.CDIM_ITS ---
PROVIDER RESPONSE TEXT: To clarify, the appropriate diagnosis supported by the clinical indicators: Yes, Cellulitis is related to / associated with / due to DM2 QUERY TEXT: PHYSICIAN'S DOCUMENTATION REQUEST Date of Query: 09/06/2022 01:20 PM EDT Patient Name: Jacques Guadarrama Admit Date: 09/03/2022 Dear Murali Rojas, A review of the medical record indicates additional documentation may be needed. Please review below and update the documentation accordingly. Documentation includes the conditions of Cellulitis and non healing big toe ulcer s/p amputation. PMH: DM2 Clinical Indicators: Please clarify the relationship between these conditions: Yes, Cellulitis is related to / associated with / due to DM2 No, Cellulitis is not related to / associated with / due to DM2 Other (explain)Clinically unable to determine (explain)Thank you, Katherine Steen RN Use of terms such as suspected, likely, concern for, or probable (associated with a specific diagnosi s that is being evaluated, monitored, or treated as if it exists) are acceptable and can be coded in the inpatient se tting, when documented at the time of discharge. Please use your independent medical judgment in providing your response. THIS QUERY IS PART OF THE PERMANENT MEDICAL RECORD
--- NOTE | 2022-09-10 09:28 | P.CDIM_ITS ---
PROVIDER RESPONSE TEXT: To clarify, the appropriate diagnosis supported by the clinical indicators: Other (explain): CKD4 QUERY TEXT: PHYSICIAN'S DOCUMENTATION REQUEST Date of Query: 09/06/2022 01:29 PM EDT Patient Name: Jacques Guadarrama Admit Date: 09/03/2022 Dear Murali Rojas, A review of the medical record indicates additional documentation may be needed. Please review below and update the documentation accordingly. Clinical Indicators: Per Hospitalist Progress Note 09/06/22: CKD BUN 47 Creatinine 2.92 Est GFR: 21 Please clarify which of the following accurately represents the patient's renal status: CKD, please provide stage Other (explain)Clinically unable to determine (explain)Thank you, Kahterine Steen RN Use of terms such as suspected, likely, concern for, or probable (associated with a specific diagnosi s that is being evaluated, monitored, or treated as if it exists) are acceptable and can be coded in the inpatient se tting, when documented at the time of discharge. Please use your independent medical judgment in providing your response. THIS QUERY IS PART OF THE PERMANENT MEDICAL RECORD
[2022-09-10 10:00] VITALS: O2SAT 95
[2022-09-10 11:12] LABS: Glucose, Whole Blood 220 mg/dL (60-115)
--- NOTE | 2022-09-10 12:59 | P.PNVS_ITS ---
Subjective Subjective Date of Service: 09/10/22 Patient reports: no new complaints and feels better Interval history: Patient seen and examined. Events over the past weekend noted. Appears to be doing relatively the same. Continues to have this nonhealing amputation site. Also notes to have some drainage from there as well. Now for follow-up. Of note erythema and discomfort have significantly decreased. Physical Exam Vital Signs: Vital Signs: Last Vital Signs Temp 97.6 F 09/10/22 07:16 Pulse 83 09/10/22 07:16 Resp 16 09/10/22 07:16 BP 122/61 09/10/22 07:16 Pulse Ox 95 09/10/22 10:00 O2 Del Method Room Air 09/10/22 10:00 O2 Flow Rate 2 09/06/22 07:51 Oxygen Flow Rate 2 09/06/22 10:00 BMI result Body Mass Index 28.8 Const: General: cooperative, healthy appearing and comfortable [place] entation/consciousness: oriented to person, oriented to place and oriented to time HEENT: Head: Yes normal to inspection Neck: Neck: Yes normal visual inspection Carotids: no bruits Chest: Chest palpation & inspection: normal inspection of the chest Resp: Effort & Inspection: normal respiratory effort and able to speak in complete sentences Auscultation: clear to auscultation bilaterally, no crackles, no rales, no rhonchi and no wheezes Cardio: Rate: regular rate Rhythm: regular rhythm Heart sounds: S1 normal heart sound present and S2 normal heart sound present Bruits: no car otid bruits Peripheral pulses: Peripheral pulses 2+ throughout GI: Inspection: Yes normal to inspection Skin: Other: Nonhealing amp site. Poor granulation base. Somewhat boggy. Wounds: no wounds Hair: normal Neuro: General: oriented to person, oriented to place and oriented to time Cranial nerves: Yes CN's II-XII intact bilaterally and Yes Normal hearing present Cognition (Neuro): normal cognition Motor exam (neuro): 5/5 motor strength present throughout Extrem: Other: venous exam: No significant superficial varicosities or spider telangiectasias, minimal edema General: No clubbing, No cyanosis and No edema Psych: Appearance: grossly normal Mental Status: mental status grossly normal Speech and movement: Normal speech and movement present Progress Note: A&P Assessment and plan (1) Amputation of right great toe: Status: Acute Assessment and Plan: In short patient has nonhealing right great toe amp. Will continue with IV antibiotics for now. Half my fear is that this may not heal and he will require further resection possible transmetatarsal amputation. I did discuss the options with the patient and he would like to try conservative management for now. I did state that we will give him another day or 2 of antibiotic therapy and reassess at that point. We will continue to monitor his status very closely. At the bare minimum I do suspect he will require transmetatarsal amputation. Thank you for allowing us to assist in his care. If there are any questions or concerns please do not hesitate to contact us. Time Spent With Patient Time: Total time managing care of this patient today ____ minutes. Procedures Date of Service Date of Service: 09/10/22 Quality Stroke Does the patient have a stroke diagnosis?: No VTE Prior VTE?: No VTE Risk Level:: Medical - moderate - high VTE Device Contraindication: Treatment Not Indicated VTE Drug Contraindication: N/A - Med Ordered
[2022-09-10 15:51] VITALS: BP 133/64; PULSE 85; RESP 18; TEMP 36.8; O2SAT 96
[2022-09-10 16:13] LABS: Glucose, Whole Blood 239 mg/dL (60-115)
[2022-09-10] MEDS: oxyCODONE HCl Immed Release 5 MG TABLET PO (16:34)
--- NOTE | 2022-09-10 19:39 | HE.PHANOTE ---
RE: vanco level on 09/10 came back at 15.0mg/L; entered one time 500mg dose. Next level to be drawn 09/11 @1900
[2022-09-10 20:00] VITALS: BP 143/67; PULSE 99; RESP 16; TEMP 36.8; O2SAT 97
[2022-09-10 20:39] LABS: Glucose, Whole Blood 249 mg/dL (60-115)
[2022-09-10] MEDS: Atorvastatin Calcium 20 MG TABLET PO (20:40)
[2022-09-10] MEDS: vancomycin HCL 500 MG in 0.9 % Sodium Chloride 100 ML 110 MG IV (20:48)
[2022-09-11 04:00] VITALS: BP 133/65; PULSE 99; RESP 18; TEMP 36.3; O2SAT 93
[2022-09-11 06:10] LABS: Creatinine Clr Calc Pharmacy 23.2; Estimated Glomerular Filt Rate 22
[2022-09-11 07:21] VITALS: BP 118/57; PULSE 93; RESP 16; TEMP 36.8; O2SAT 93
[2022-09-11 07:29] LABS: Glucose, Whole Blood 178 mg/dL (60-115)
[2022-09-11] MEDS: Cholecalciferol (Vitamin D3) 25 MCG TABLET 50 MCG PO (08:05)
[2022-09-11] MEDS: Finasteride 5 MG TABLET PO (08:05)
[2022-09-11] MEDS: 0.9 % Sodium Chloride Flush 3 ML SYRINGE IVFLUSH ×3 (08:06→21:24)
[2022-09-11] MEDS: Clotrimazole 1 % Cream 15 GM TUBE 1 APPL TOPICAL ×2 (08:06→21:27)
[2022-09-11] MEDS: Insulin Lispro 100 UNIT/ML 3 ML VIAL SUBCUT ×4 (08:06→21:24)
[2022-09-11] MEDS: Sodium Bicarbonate 650 MG TABLET PO ×3 (08:06→21:24)
[2022-09-11] MEDS: Empagliflozin 10 MG TABLET PO (08:06)
[2022-09-11] MEDS: Ferrous Sulfate 324 MG TABLET.DR PO ×2 (08:06→17:05)
--- NOTE | 2022-09-11 09:41 | P.PNVS_ITS ---
Subjective Subjective Date of Service: 09/11/22 Patient reports: no new complaints and feels better Interval history: Patient seen and examined. No significant events overnight. [id number] was at bedside during visit. Reports no interval issues. In general feeling fairly well. Physical Exam Vital Signs: Vital Signs: Last Vital Signs Temp 98.2 F 09/11/22 07:21 Pulse 93 09/11/22 07:21 Resp 16 09/11/22 07:21 BP 118/57 L 09/11/22 07:21 Pulse Ox 93 09/11/22 07:21 O2 Del Method Room Air 09/11/22 07:21 O2 Flow Rate 2 09/06/22 07:51 Oxygen Flow Rate 2 09/06/22 10:00 BMI result Body Mass Index 28.8 Const: General: cooperative, healthy appearing and no acute distress Orientation/consciousness: oriented to person, oriented to place and oriented to time HEENT: Head: Yes normal to inspection Neck: Carotids: no bruits Chest: Chest palpation & inspection: normal inspection of the chest Resp: Effort & Inspection: normal respiratory effort and able to speak in com plete sentences Auscultation: clear to auscultation bilaterally Cardio: Rate: regular rate Heart sounds: S1 normal heart sound present and S2 normal heart sound present GI: Inspection: Yes normal to inspection Skin: Other: Right foot dressing clean dry intact General skin exam: no rashes or lesions noted Wounds: no wounds Neuro: General: oriented to person, oriented to place, oriented to time and CN's II-XI intact bilaterally Extrem: General: Yes normal to inspection, Yes full ROM and Yes no clubbing, cyanosis or edema Psych: Appearance: grossly normal and well kempt Speech and movement: Normal speech and movement present Affect: normal affect Progress Note: A&P Assessment and plan (1) Amputation of right great toe: Status: Acute Assessment and Plan: In short patient has nonhealing great toe amp. The concern is nonhealing and infection. It appears to be doing significantly better. Will plan for dressing change. My suspicion is that he will require at the bare minimum a transmetatarsal amputation. This was all related to the patient and daughter in-law who was at bedside. We will once again have of meeting tomorrow morning at 07:30 to assess it status and future surgery. Thank you for allowing us to assist in his care. If there are any questions or concerns please do not hesitate to contact us. Time Spent With Patient Time: Total time managing care of this patient today ____ minutes. Procedures Date of Service Date of Service: 09/11/22 Quality Stroke Does the patient have a stroke diagnosis?: No VTE Prior VTE?: No VTE Risk Level:: Medical - moderate - high VTE Device Contraindication: Treatment Not Indicated VTE Drug Contraindication: N/A - Med Ordered
[2022-09-11 09:56] VITALS: O2SAT 93
[2022-09-11 11:29] LABS: Glucose, Whole Blood 270 mg/dL (60-115)
--- NOTE | 2022-09-11 12:30 | HO.PM.IMPN ---
Subjective Subjective Date of Service: 09/11/22 Interval History: Right great toe amputation/cellulitis Review of Systems Feeling better, denies any chest pain or shortness of breath or fever. Would Physical Exam Vital Signs: Vital Signs: Last Vital Signs Temp 98.2 F 09/11/22 07:21 Pulse 93 09/11/22 07:21 Resp 16 09/11/22 07:21 BP 118/57 L 09/11/22 07:21 Pulse Ox 93 09/11/22 09:56 O2 Del Method Room Air 09/11/22 09:56 O2 Flow Rate 2 09/06/22 07:51 Oxygen Flow Rate 2 09/06/22 10:00 BMI result Body Mass Index 28.8 Constitutional : Awake, interactive, not in distress Cardiovascular : RRR, no JVP, no lower extremity edema Respiratory : air entry fair, no crackles or wheezes or rhonchi Gastrointestinal:? soft, Normal bowel sounds, Non tender,bs present. Skin : Warm, Dry, Rt foot resolving erythema and warmth around the area of surgery and dressing Neurological : Alert & oriented x3, No focal deficit Objective Data Active Medications Al Hydroxide/Mg Hydroxide (Magnesium Hydrox/Alum Hydrox 30 Ml Oral.Susp) 30 ml PO Q4H PRN PRN Reason: Dyspepsia Atorvastatin Calcium (Atorvastatin Calcium 20 Mg Tablet) 20 mg PO BEDTIME [facility] Last Admin: 09/10/22 20:40 Dose: 20 mg Documented By: MCKINLEY Clotrimazole (Clotrimazole 1 % Cream 15 Gm Tube) 1 appl TOPICAL BID [facility]; Protocol Last Admin: 09/11/22 08:06 Dose: 1 appl Documented By: PHYLLIS Dextrose (Dextrose 50 % 25 Gm/50 Ml Syringe) 25 gm IVPUSH Q15M PRN; Protocol PRN Reason: per Hypoglycemia Standing Ord. Empagliflozin (Empagliflozin 10 Mg Tablet) 10 mg PO DAILY [facility] Last Admin: 09/11/22 08:06 Dose: 10 mg Documented By: PHYLLIS Ferrous Sulfate (Ferrous Sulfate 324 Mg Tablet.) 324 mg PO BIDWM [facility] Last Admin: 09/11/22 08:06 Dose: 324 mg Documented By: PHYLLIS Finasteride (Finasteride 5 Mg Tablet) 5 mg PO DAILY [facility] Last Admin: 09/11/22 08:05 Dose: 5 mg Documented By: PHYLLIS Glucose (Glucose Gel 15 Gm Gel..Gram.) 15 gm PO Q15M PRN; Protocol PRN Reason: per Hypoglycemia Standing Ord. Vancomycin HCl 500 mg/ Sodium (Chloride) 110 mls @ 110 mls/hr IV Q24H [facility] Insulin Human Lispro (Insulin Lispro 100 Unit/Ml 3 Ml Vial) 0 unit SUBCUT QIDACHS [facility]; Protocol Last Admin: 09/11/22 11:50 Dose: 6 unit Documented By: PHYLLIS Oxycodone HCl (Oxycodone Hcl Immed Release 5 Mg Tablet) 5 mg PO Q4H PRN PRN Reason: Pain, Severe (Pain Scale 7-10) Last Admin: 09/10/22 16:34 Dose: 5 mg Documented By: GUILLERMO Pharmacy Consult (Consult Rx Vancomycin Dosing) 1 each MISCELLANE DAILY PRN PRN Reason: Consult order Sodium Bicarbonate (Sodium Bicarbonate 650 Mg Tablet) 650 mg PO TID [facility] Last Admin: 09/11/22 08:06 Dose: 650 mg Documented By: PHYLLIS Sodium Chloride (0.9 % Sodium Chloride Flush 3 Ml Syringe) 3 ml IVFLUSH QSHIFT [facility] Last Admin: 09/11/22 08:06 Dose: 3 ml Documented By: PHYLLIS Vitamin D (Cholecalciferol (Vitamin D3) 25 Mcg Tablet) 50 mcg PO DAILY [facility] Last Admin: 09/11/22 08:05 Dose: 50 mcg Documented By: PHYLLIS Labs 09/10/22 05:34 09/11/22 05:33 Labs: Laboratory Results - last 24 hr 09/10/22 09/10/22 09/10/22 16:10 19:02 20:35 Estim Creat Clear Calc Estimated GFR POC Glucose 239 H 249 H Random Vancomycin 15.0 09/11/22 09/11/22 09/11/22 05:33 07:24 11:24 Estim Creat Clear Calc 23.2 Estimated GFR 22 POC Glucose 178 H 270 H Random Vancomycin Assessment and Plan (1) Amputation of right great toe: Status: Acute (2) Cellulitis: Status: Acute Plan 81 years old male with PMH of CKD, CHF, recent OM, DM, HTN , PAD among others presented to the hospital for elective surgical amputation of right great toe. Right great toe amputation/cellulitis Operated on 09/03 concern for non-healing amputation site along with cellulitis vanco trough 15 continue IV Vancomycin(09/07/22) follow along surgery,ID consulted Acute loss anemia on Chronic anemia 2/2 CKD Stable? s/p 2 units of pRBC 09/06 stool occult positive, as pt is stable and hgb stable since transfusion, recommend fup op for evaluation of stool occult positive anemia consider GI eval inp if has further drop in Hgb? follow H&H BPHContinue Finasteride and Doxazosin DMII with hyperglycemia POC, diabetic diet Jardiance adjusted SSI HLD Statin DVT PPx SCDs inpatient need:Right great toe amputation/cellulitis-need iv antibiotics ,surgical eval to decide the next step on treatment. Time Spent With Patient Time: Total time managing care of this patient today ____ minutes. Quality Stroke Does the patient have a stroke diagnosis?: No VTE Prior VTE?: No VTE Risk Level:: Medical - moderate - high VTE Device Contraindication: Treatment Not Indicated VTE Drug Contraindication: N/A - Med Ordered
[2022-09-11 15:22] VITALS: BP 136/63; PULSE 87; RESP 18; TEMP 36.5; O2SAT 95
[2022-09-11 16:11] LABS: Glucose, Whole Blood 260 mg/dL (60-115)
[2022-09-11 19:54] VITALS: BP 140/67; PULSE 94; RESP 20; TEMP 36.3; O2SAT 95
[2022-09-11 20:00] VITALS: BP 115/80; PULSE 84; RESP 20; TEMP 36.3; O2SAT 92
[2022-09-11 20:51] LABS: Glucose, Whole Blood 223 mg/dL (60-115)
[2022-09-11] MEDS: Atorvastatin Calcium 20 MG TABLET PO (21:24)
[2022-09-12 03:20] VITALS: BP 134/63; PULSE 89; RESP 18; TEMP 36.5; O2SAT 92
[2022-09-12 06:04] LABS: MANUAL DIFF FLAG NO
[2022-09-12 06:22] LABS: Basophils Absolute Auto 0.1 X10*3/uL (0.0-0.2); Basophils Percent Auto 0.7 % (0-2); Eosinophils Absolute Auto 0.2 X10*3/uL (0.0-0.4); Eosinophils Percent Auto 1.9 % (0-4); Hematocrit 33.4 % (42.0-52.0); Hemoglobin 10.7 g/dl (14.0-18.0); Imm Gran Pct Auto 0.9 % (0.0-0.4); Lymphocytes Absolute Auto 0.7 X10*3/uL (1.2-4.9); Lymphocytes Percent Auto 6.2 % (20-40); Mean Corpuscular Hemoglobin 28.7 pg (27.0-33.0); Mean Corpuscular Volume 89.5 fL (80.0-98.0); Mean Platelet Volume 10.6 fL (9.4-12.4); Monocytes Absolute Auto 0.8 X10*3/uL (0.1-1.2); Monocytes Percent Auto 7.2 % (2-11); Neutrophils Absolute Auto 9.2 x10*3/uL (2.0-8.3); Neutrophils Percent Auto 83.1 % (45-73); Platelet Count 222 X10*3/uL (160-400); Red Blood Count 3.73 X10*6/uL (4.60-5.80); Red Cell Distribution Width 15.3 % (11.0-16.0); White Blood Count 11.1 X10*3/uL (4.8-10.8)
[2022-09-12 06:34] LABS: Creatinine Clr Calc Pharmacy 25.8; Estimated Glomerular Filt Rate 25
[2022-09-12 07:34] LABS: Glucose, Whole Blood 154 mg/dL (60-115)
[2022-09-12 07:54] VITALS: BP 115/56; PULSE 95; RESP 18; TEMP 36.3; O2SAT 93
[2022-09-12] MEDS: Insulin Lispro 100 UNIT/ML 3 ML VIAL SUBCUT ×4 (08:22→20:56)
[2022-09-12] MEDS: Empagliflozin 10 MG TABLET PO (08:22)
[2022-09-12] MEDS: Cholecalciferol (Vitamin D3) 25 MCG TABLET 50 MCG PO (08:22)
[2022-09-12] MEDS: Finasteride 5 MG TABLET PO (08:22)
[2022-09-12] MEDS: Sodium Bicarbonate 650 MG TABLET PO ×3 (08:22→20:51)
[2022-09-12] MEDS: Ferrous Sulfate 324 MG TABLET.DR PO ×2 (08:22→16:54)
[2022-09-12] MEDS: 0.9 % Sodium Chloride Flush 3 ML SYRINGE IVFLUSH ×3 (08:23→20:01)
--- NOTE | 2022-09-12 09:21 | P.PNVS_ITS ---
Subjective Subjective Date of Service: 09/12/22 Patient reports: no new complaints and feels better Interval history: Patient seen and examined. No significant events overnight. He was seen this morning with son at bedside. Concerned about his overall status of the foot. Of note September 20 he does have a appointment at [facility] for his cancer. He now presents for follow-up dressing change. Physical Exam Vital Signs: Vital Signs: Last Vital Signs Temp 97.3 F 09/12/22 07:54 Pulse 95 09/12/22 07:54 Resp 18 09/12/22 07:54 BP 115/56 L 09/12/22 07:54 Pulse Ox 93 09/12/22 07:54 O2 Del Method Room Air 09/12/22 07:54 O2 Flow Rate 98 09/11/22 20:00 Oxygen Flow Rate 2 09/06/22 10:00 BMI result Body Mass Index 28.8 Const: General: cooperative, healthy appearing and no acute distress Orientation/consciousness: oriented to person, oriented to place and oriented to time HEENT: Head: Yes normal to inspection Neck: Carotids: no bruits Chest: Chest palpation & inspection: normal inspection of the chest Resp: Effort & Inspection: normal respiratory effort and able to speak in complete sentences Auscultation: clear to auscultation bilaterally Cardio: Rate: regular rate Heart sounds: S1 normal heart sound present and S2 normal heart sound present GI: Inspection: Yes normal to inspection Skin: Other: Right great toe amp site open nonhealing very poor granulation bed dusky flap General skin exam: no rashes or lesions noted Wounds: no wounds Neuro: General: oriented to person, oriented to place, oriented to time and CN's II-XI intact bilaterally Extrem: General: Yes normal to inspection, Yes full ROM and Yes no clubbing, cyanosis or edema Psych: Appearance: grossly normal and well kempt Speech and movement: Normal speech and movement present Affect: normal affect Progress Note: A&P Assessment and plan (1) Diabetic osteomyelitis: Status: Acute Assessment and Plan: In short patient has nonhealing right great toe amputation site. The concern here is that his vasculatures poor and we are unable to perform any additional interventions due to his bladder cancer and inability to anticoagulate. We did discuss the options with the family and would like to proceed with a transmetatarsal amputation. They did recognize that this may not heal and may require further amputation and may be as high as a BKA. They were in agreement and would like to move forward. The patient will require right transmetatarsal amputation. Risks benefits complications were discussed in detail with the patient and son who was at bedside. We will schedule for tomorrow. Thank you for allowing us to assist in his care. If there are any questions or concerns please do not hesitate to contact us. Time Spent With Patient Time: Total time managing care of this patient today ____ minutes. Procedures Date of Service Date of Service: 09/12/22 Quality Stroke Does the patient have a stroke diagnosis?: No VTE Prior VTE?: No VTE Risk Level:: Medical - moderate - high VTE Device Contraindication: Treatment Not Indicated VTE Drug Contraindication: N/A - Med Ordered
[2022-09-12 10:00] VITALS: O2SAT 94
--- NOTE | 2022-09-12 11:01 | MHC.CLN ---
F/U DIET=DIABETIC 2200 KCALS. INTAKE AT MEALS USUALLY GOOD, 50-100%. STAGE III WOUND TO LEFT HEEL. INCREASED NUTRITION NEEDS FOR WOUND HEALING. NOT ADDING PROTEIN SUPPLEMENT AT THIS TIME DUE TO USUALLY GOOD INTAKE AND PATIENT WITH CKD AND ELEVATED BUN AND Cr. FOLLOW FOR INTAKE, LABS, AND WOUND HEALING.
[2022-09-12 11:26] LABS: Glucose, Whole Blood 268 mg/dL (60-115)
--- NOTE | 2022-09-12 14:24 | HO.PM.IMPN ---
Subjective Subjective Date of Service: 09/12/22 Interval History: Right great toe amputation/cellulitis Review of Systems Feeling better, denies any chest pain or shortness of breath or fever.? Physical Exam Vital Signs: Vital Signs: Last Vital Signs Temp 97.3 F 09/12/22 07:54 Pulse 95 09/12/22 07:54 Resp 18 09/12/22 07:54 BP 115/56 L 09/12/22 07:54 Pulse Ox 94 09/12/22 10:00 O2 Del Method Room Air 09/12/22 10:00 O2 Flow Rate 98 09/11/22 20:00 Oxygen Flow Rate 2 09/06/22 10:00 BMI result Body Mass Index 28.8 Awake, interactive, not in distress Cvs: RRR, no JVP, no lower extremity edema chest : air entry fair, no crackles or wheezes or rhonchi GI:? soft,? Normal bowel sounds, Non tender,bs present. Skin : Warm, Dry, Rt foot resolving erythema and warmth around the area of surgery and dressing Neurological : Alert & oriented x3, No focal deficit Objective Data Active Medications Al Hydroxide/Mg Hydroxide (Magnesium Hydrox/Alum Hydrox 30 Ml Oral.Susp) 30 ml PO Q4H PRN PRN Reason: Dyspepsia Atorvastatin Calcium (Atorvastatin Calcium 20 Mg Tablet) 20 mg PO BEDTIME [facility] Last Admin: 09/11/22 21:24 Dose: 20 mg Documented By: DOTTIE Clotrimazole (Clotrimazole 1 % Cream 15 Gm Tube) 1 appl TOPICAL BID [facility]; Protocol Last Admin: 09/12/22 11:14 Dose: Not Given Documented By: AKBAR Non-Admin Reason: Previously Administered Dextrose (Dextrose 50 % 25 Gm/50 Ml Syringe) 25 gm IVPUSH Q15M PRN; Protocol PRN Reason: per Hypoglycemia Standing Ord. Empagliflozin (Empagliflozin 10 Mg Tablet) 10 mg PO DAILY [facility] Last Admin: 09/12/22 08:22 Dose: 10 mg Documented By: AKBAR Ferrous Sulfate (Ferrous Sulfate 324 Mg Tablet.) 324 mg PO BIDWM [facility] Last Admin: 09/12/22 08:22 Dose: 324 mg Documented By: AKBAR Finasteride (Finasteride 5 Mg Tablet) 5 mg PO DAILY [facility] Last Admin: 09/12/22 08:22 Dose: 5 mg Documented By: AKBAR Glucose (Glucose Gel 15 Gm Gel..Gram.) 15 gm PO Q15M PRN; Protocol PRN Reason: per Hypoglycemia Standing Ord. Vancomycin HCl 500 mg/ Sodium (Chloride) 110 mls @ 110 mls/hr IV Q24H [facility] Insulin Human Lispro (Insulin Lispro 100 Unit/Ml 3 Ml Vial) 0 unit SUBCUT QIDACHS [facility]; Protocol Last Admin: 09/12/22 12:08 Dose: 6 unit Documented By: AKBAR Oxycodone HCl (Oxycodone Hcl Immed Release 5 Mg Tablet) 5 mg PO Q4H PRN PRN Reason: Pain, Severe (Pain Scale 7-10) Last Admin: 09/10/22 16:34 Dose: 5 mg Documented By: GUILLERMO Pharmacy Consult (Consult Rx Vancomycin Dosing) 1 each MISCELLANE DAILY PRN PRN Reason: Consult order Sodium Bicarbonate (Sodium Bicarbonate 650 Mg Tablet) 650 mg PO TID [facility] Last Admin: 09/12/22 08:22 Dose: 650 mg Documented By: AKBAR Sodium Chloride (0.9 % Sodium Chloride Flush 3 Ml Syringe) 3 ml IVFLUSH QSHIFT [facility] Last Admin: 09/12/22 08:23 Dose: 3 ml Documented By: AKBAR Vitamin D (Cholecalciferol (Vitamin D3) 25 Mcg Tablet) 50 mcg PO DAILY [facility] Last Admin: 09/12/22 08:22 Dose: 50 mcg Documented By: AKBAR Labs 09/12/22 05:38 09/12/22 05:38 Labs: Laboratory Results - last 24 hr 09/11/22 09/11/22 09/11/22 16:00 17:00 20:41 MCV MCH MCHC RDW Plt Count MPV Immature Gran % (Auto) Neut % (Auto) Lymph % (Auto) [place] % (Auto) Eos % (Auto) Baso % (Auto) Lymph # (Auto) [place] # (Auto) Eos # (Auto) Baso # (Auto) Abs Immat Gran (auto) Absolute Neuts (auto) Absolute Nucleated RBC Nucleated RBC % (auto) Estim Creat Clear Calc Estimated GFR POC Glucose 260 H 223 H Random Vancomycin 17.0 09/12/22 09/12/22 09/12/22 05:38 05:38 07:25 MCV 89.5 MCH 28.7 MCHC 32.0 RDW 15.3 Plt Count 222 MPV 10.6 Immature Gran % (Auto) 0.9 H Neut % (Auto) 83.1 H Lymph % (Auto) 6.2 L [place] % (Auto) 7.2 Eos % (Auto) 1.9 Baso % (Auto) 0.7 Lymph # (Auto) 0.7 L [place] # (Auto) 0.8 Eos # (Auto) 0.2 Baso # (Auto) 0.1 Abs Immat Gran (auto) 0.10 H Absolute Neuts (auto) 9.2 H Absolute Nucleated RBC 0.000 Nucleated RBC % (auto) 0.0 Estim Creat Clear Calc 25.8 Estimated GFR 25 POC Glucose 154 H Random Vancomycin 09/12/22 11:17 MCV MCH MCHC RDW Plt Count MPV Immature Gran % (Auto) Neut % (Auto) Lymph % (Auto) [place] % (Auto) Eos % (Auto) Baso % (Auto) Lymph # (Auto) [place] # (Auto) Eos # (Auto) Baso # (Auto) Abs Immat Gran (auto) Absolute Neuts (auto) Absolute Nucleated RBC Nucleated RBC % (auto) Estim Creat Clear Calc Estimated GFR POC Glucose 268 H Random Vancomycin Assessment and Plan (1) Amputation of right great toe: Status: Acute (2) Cellulitis: Status: Acute Plan 81 years old male with PMH of CKD, CHF, recent OM, DM, HTN , PAD among others presented to the hospital for elective surgical amputation of right great toe. Right great toe amputation/cellulitis Operated on 09/03 concern for non-healing amputation site along with cellulitis vanco trough 15 continue IV Vancomycin(09/07/22) follow along surgery,ID consulted Acute loss anemia on Chronic anemia 2/2 CKD Stable? s/p 2 units of pRBC 09/06 stool occult positive, as pt is stable and hgb stable since transfusion, recommend fup op for evaluation of stool occult positive anemia consider GI eval inp if has further drop in Hgb? follow H&H BPHContinue Finasteride and Doxazosin DMII with hyperglycemia POC, diabetic diet Jardiance adjusted SSI HLD Statin DVT PPx SCDs inpatient need:Right great toe amputation/cellulitis-need iv antibiotics ,surgical eval to decide the next step on treatment. Time Spent With Patient Time: Total time managing care of this patient today ____ minutes. Quality Stroke Does the patient have a stroke diagnosis?: No VTE Prior VTE?: No VTE Risk Level:: Medical - moderate - high VTE Device Contraindication: Treatment Not Indicated VTE Drug Contraindication: N/A - Med Ordered
--- NOTE | 2022-09-12 14:41 | MHC.CM.PN ---
Per MD rounds no discharge today; because Vascular surgery may schedule O.R. for tomorrow. DP is home with resumption of [facility]. Patient has a ride at discharge.
[2022-09-12 15:47] VITALS: BP 134/68; PULSE 77; RESP 18; TEMP 35.8; O2SAT 98
[2022-09-12 16:34] LABS: Glucose, Whole Blood 292 mg/dL (60-115)
[2022-09-12 19:37] LABS: Vancomycin Random 15.5 mcg/mL (15-20)
[2022-09-12 20:00] VITALS: BP 153/83; PULSE 111; RESP 18; TEMP 36.1; O2SAT 96
[2022-09-12 20:27] LABS: Glucose, Whole Blood 350 mg/dL (60-115)
[2022-09-12] MEDS: Clotrimazole 1 % Cream 15 GM TUBE 1 APPL TOPICAL (20:51)
[2022-09-12] MEDS: Atorvastatin Calcium 20 MG TABLET PO (20:51)
[2022-09-12] MEDS: oxyCODONE HCl Immed Release 5 MG TABLET PO (23:15)
[2022-09-13] VITALS (11 sets, daily range): BP systolic 110–151; BP diastolic 53–86; PULSE 70–104; RESP 14–18; TEMP 36–36.8; O2SAT 94–99
[2022-09-13 06:10] LABS: Hematocrit 33.4 % (42.0-52.0); Hemoglobin 10.7 g/dl (14.0-18.0); Mean Corpuscular Hemoglobin 28.7 pg (27.0-33.0); Mean Corpuscular Volume 89.5 fL (80.0-98.0); Mean Platelet Volume 10.7 fL (9.4-12.4); Platelet Count 241 X10*3/uL (160-400); Red Blood Count 3.73 X10*6/uL (4.60-5.80); Red Cell Distribution Width 15.3 % (11.0-16.0)
[2022-09-13 06:30] LABS: Creatinine Clr Calc Pharmacy 26.3; Estimated Glomerular Filt Rate 26
[2022-09-13 07:33] LABS: Glucose, Whole Blood 242 mg/dL (60-115)
[2022-09-13] MEDS: 0.9 % Sodium Chloride Flush 3 ML SYRINGE IVFLUSH ×3 (08:14→19:37)
--- NOTE | 2022-09-13 09:11 | P.CONAN_ITS ---
[facility] Active Problems Active Problems: All Active Problems (Updated 09/07/22 @ 11:06 by Fabiana Kimbrough MD) Hypotension (Acute) Amputation of right great toe (Acute) Acute on chronic blood loss anemia (Acute) Cellulitis (Acute) DEON (acute kidney injury) (Acute) BPH loc w urin obs/LUTS (Acute) Hydronephrosis (Acute) Iron deficiency anemia (Acute) Heme positive stool (Acute) Cao catheter problem (Acute) Encounter for interrogation of cardiac pacemaker (Acute) Symptomatic bradycardia (Acute) Mitral annular calcification (Acute) Diabetic foot ulcer (Acute) Cellulitis of foot, right (Acute) Diabetic osteomyelitis (Acute) Metabolic acidosis (Acute) Bladder mass (Acute) Anemia (Acute) Acute kidney injury superimposed on CKD (Acute) Ulcer of right 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 (Acute) PAD (peripheral artery disease) (Acute) Infection of right foot (Acute) Acute osteomyelitis (Acute) Heart block (Acute) Past Medical History Medical History Acute osteomyelitis Back pain CKD (chronic kidney disease) stage 3, GFR 30-59 ml/min Congestive heart failure with LV diastolic dysfunction, NYHA class 3 Decubitus ulcer, heel Diabetes mellitus Gram-negative bacteremia H/O cardiac pacemaker Heart block History of COVID-19 Hyperlipidemia Hypertension Infection of right foot Iron deficiency anemia PAD (peripheral artery disease) Type 2 diabetes mellitus with unspecified complications Ulcer of left heel Ulcer of right 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 Urinary retention Family History Family History Brother Testicular cancer Family history of problems with anesthesia: No Surgical History Surgical History History of atherectomy History of back surgery History of esophagogastroduodenoscopy History of left hip replacement Hx of cataract extraction Hx of colonoscopy History of Problems with Anesthesia: No Social History Social History Household Members: Spouse Household Members Other:: 2 Housing: House Do you presently have visiting nurse or other home services: Yes Alcohol intake: former Patient Tobacco Use Status: Former Tobacco user Quit Date: 15 years Tobacco use type: Cigarette Use of substances other than those prescribed or required for medical reasons: No Currently Displaying Signs/Symptoms of Drug Intoxication Withdrawal: No Have you been hit, kicked, punched, or otherwise hurt by someone within the past year? If so, by whom?: No Do you feel safe in your current relationship?: No Is there a partner from a previous relationship who is making you feel unsafe now?: No Are you made to feel afraid or neglected: No Are you DNR?: No Advance Directives: Yes Advance Directives on File: Yes Advance Directives Date on File: 07/12/22 Do you have thoughts of harming others: None Do you have a plan to hurt others: No Plan Recently lost weight without trying: No Eating poorly because of decreased appetite: No Nutrition Risks: No Nutritional Risk Poor oral hygiene: No service: No Current occupational status: retired [employer] Allergies Allergy/AdvReac Type Severity Reaction Status Date / Time lisinopril [LISINOPRIL] Allergy Severe ANGIOEDEMA Verified 08/30/22 10:56 Active Medications: Current Medications Al Hydroxide/Mg Hydroxide (Magnesium Hydrox/Alum Hydrox 30 Ml Oral.Susp) 30 ml PO Q4H PRN PRN Reason: Dyspepsia Atorvastatin Calcium (Atorvastatin Calcium 20 Mg Tablet) 20 mg PO BEDTIME [facility] Last Admin: 09/12/22 20:51 Dose: 20 mg Clotrimazole (Clotrimazole 1 % Cream 15 Gm Tube) 1 appl TOPICAL BID JIL; Protocol Last Admin: 09/12/22 20:51 Dose: 1 appl Dextrose (Dextrose 50 % 25 Gm/50 Ml Syringe) 25 gm IVPUSH Q15M PRN; Protocol PRN Reason: per Hypoglycemia Standing Ord. Empagliflozin (Empagliflozin 10 Mg Tablet) 10 mg PO DAILY [facility] Last Admin: 09/12/22 08:22 Dose: 10 mg Ferrous Sulfate (Ferrous Sulfate 324 Mg Tablet.Dr) 324 mg PO BIDWM JIL Last Admin: 09/12/22 16:54 Dose: 324 mg Finasteride (Finasteride 5 Mg Tablet) 5 mg PO DAILY [facility] Last Admin: 09/12/22 08:22 Dose: 5 mg Glucose (Glucose Gel 15 Gm Gel..Gram.) 15 gm PO Q15M PRN; Protocol PRN Reason: per Hypoglycemia Standing Ord. Vancomycin HCl 500 mg/ Sodium (Chloride) 110 mls @ 110 mls/hr IV Q24H [facility] Insulin Human Lispro (Insulin Lispro 100 Unit/Ml 3 Ml Vial) 0 unit SUBCUT QIDACHS [facility]; Protocol Last Admin: 09/13/22 08:32 Dose: Not Given Oxycodone HCl (Oxycodone Hcl Immed Release 5 Mg Tablet) 5 mg PO Q4H PRN PRN Reason: Pain, Severe (Pain Scale 7-10) Last Admin: 09/12/22 23:15 Dose: 5 mg Pharmacy Consult (Consult Rx Vancomycin Dosing) 1 each MISCELLANE DAILY PRN PRN Reason: Consult order Sodium Bicarbonate (Sodium Bicarbonate 650 Mg Tablet) 650 mg PO TID [facility] Last Admin: 09/12/22 20:51 Dose: 650 mg Sodium Chloride (0.9 % Sodium Chloride Flush 3 Ml Syringe) 3 ml IVFLUSH QSHIFT [facility] Last Admin: 09/13/22 08:14 Dose: 3 ml Vitamin D (Cholecalciferol (Vitamin D3) 25 Mcg Tablet) 50 mcg PO DAILY [facility] Last Admin: 09/12/22 08:22 Dose: 50 mcg Home Medications Medication Instructions Recorded Confirmed Last Taken Type simvastatin 40 mg tablet 40 mg PO BEDTIME 03/17/20 09/03/22 09/02/22 History blood sugar diagnostic (OneTouch #10 ea 11/11/20 09/03/22 09/03/22 History Verio test strips) pantoprazole 20 mg tablet,delayed 20 mg PO DAILY 11/11/20 09/03/22 09/03/22 History release cholecalciferol (vitamin D3) 50 50 mcg PO DAILY 07/11/22 09/03/22 09/03/22 History mcg (2,000 unit) tablet empagliflozin 10 mg tablet 10 mg PO DAILY 07/11/22 09/03/22 09/03/22 History (Jardiance) Exam Exam Date and Time: September 13, 2022 0911 Height,Weight and Vital Signs: Height 5 ft 9 in Weight 88.451 kg Last Vital Signs Temp 98.0 F 09/13/22 08:00 Pulse 97 09/13/22 08:00 Resp 17 09/13/22 08:00 BP 120/59 L 09/13/22 08:00 Pulse Ox 95 09/13/22 08:00 O2 Del Method Room Air 09/13/22 08:00 O2 Flow Rate 98 09/11/22 20:00 h Oxygen Flow Rate 2 09/06/22 10:00 Pertinent Lab Results Pertinent Lab Results: Laboratory Tests 09/03/22 09/03/22 09/03/22 08:50 08:50 08:50 WBC 12.1 H RBC 2.90 L Hgb 8.3 L Hct 26.2 L MCV 90.3 MCH 28.6 MCHC 31.7 RDW 14.9 Plt Count 271 MPV 10.6 Immature Gran % (Auto) Neut % (Auto) Lymph % (Auto) Mcleod % (Auto) Eos % (Auto) Baso % (Auto) Lymph # (Auto) Mcleod # (Auto) Eos # (Auto) Baso # (Auto) Abs Immat Gran (auto) Absolute Neuts (auto) Absolute Nucleated RBC 0.000 Nucleated RBC % (auto) 0.0 Smear Path Review PT 13.6 H INR 1.2 H APTT 27.0 Sodium 136 Potassium 4.2 Chloride 103 Carbon Dioxide 22 Anion Gap 15 BUN 45 H Creatinine 3.18 H Estim Creat Clear Calc 20.3 Estimated GFR 19 POC Glucose Random Glucose 351 H* Calcium 8.8 D Iron TIBC % Saturation Unsat Iron Binding Troponin I High Sens B-Natriuretic Peptide Stool Occult Blood Vancomycin Trough Random Vancomycin Blood Type Antibody Screen Crossmatch 09/03/22 09/03/22 09/04/22 16:07 20:28 05:27 WBC 10.8 RBC 2.74 L Hgb 7.8 L Hct 25.0 L MCV 91.2 MCH 28.5 MCHC 31.2 RDW 15.0 Plt Count 218 MPV 10.7 Immature Gran % (Auto) 0.6 H Neut % (Auto) 88.0 H Lymph % (Auto) 5.0 L Mcleod % (Auto) 4.9 Eos % (Auto) 1.1 Baso % (Auto) 0.4 Lymph # (Auto) 0.5 L Mcleod # (Auto) 0.5 Eos # (Auto) 0.1 Baso # (Auto) 0.0 Abs Immat Gran (auto) 0.07 H Absolute Neuts (auto) 9.5 H Absolute Nucleated RBC 0.000 Nucleated RBC % (auto) 0.0 Smear Path Review PT INR APTT Sodium Potassium Chloride Carbon Dioxide Anion Gap BUN Creatinine Estim Creat Clear Calc Estimated GFR POC Glucose 223 H 312 H Random Glucose Calcium Iron TIBC % Saturation Unsat Iron Binding Troponin I High Sens B-Natriuretic Peptide Stool Occult Blood Vancomycin Trough Random Vancomycin Blood Type Antibody Screen Crossmatch 09/04/22 09/04/22 09/04/22 05:27 06:57 11:08 WBC RBC Hgb Hct MCV MCH MCHC RDW Plt Count MPV Immature Gran % (Auto) Neut % (Auto) Lymph % (Auto) Mcleod % (Auto) Eos % (Auto) Baso % (Auto) Lymph # (Auto) Mcleod # (Auto) Eos # (Auto) Baso # (Auto) Abs Immat Gran (auto) Absolute Neuts (auto) Absolute Nucleated RBC Nucleated RBC % (auto) Smear Path Review PT INR APTT Sodium 138 Potassium 4.0 Chloride 106 Carbon Dioxide 22 Anion Gap 14 BUN 42 H Creatinine 2.83 H Estim Creat Clear Calc 22.5 Estimated GFR 22 POC Glucose 192 H 272 H Random Glucose 192 H Calcium 8.6 Iron 15 L TIBC 121 L % Saturation 12 L Unsat Iron Binding 106 Troponin I High Sens B-Natriuretic Peptide Stool Occult Blood Vancomycin Trough Random Vancomycin Blood Type Antibody Screen Crossmatch 09/04/22 09/04/22 09/05/22 15:57 21:22 07:19 WBC RBC Hgb Hct MCV MCH MCHC RDW Plt Count MPV Immature Gran % (Auto) Neut % (Auto) Lymph % (Auto) Mcleod % (Auto) Eos % (Auto) Baso % (Auto) Lymph # (Auto) Mcleod # (Auto) Eos # (Auto) Baso # (Auto) Abs Immat Gran (auto) Absolute Neuts (auto) Absolute Nucleated RBC Nucleated RBC % (auto) Smear Path Review PT INR APTT Sodium Potassium Chloride Carbon Dioxide Anion Gap BUN Creatinine Estim Creat Clear Calc Estimated GFR POC Glucose 290 H 308 H 192 H Random Glucose Calcium Iron TIBC % Saturation Unsat Iron Binding Troponin I High Sens B-Natriuretic Peptide Stool Occult Blood Vancomycin Trough Random Vancomycin Blood Type Antibody Screen Crossmatch 09/05/22 09/05/22 09/05/22 11:14 16:19 19:39 WBC RBC Hgb Hct MCV MCH MCHC RDW Plt Count MPV Immature Gran % (Auto) Neut % (Auto) Lymph % (Auto) Mcleod % (Auto) Eos % (Auto) Baso % (Auto) Lymph # (Auto) Mcleod # (Auto) Eos # (Auto) Baso # (Auto) Abs Immat Gran (auto) Absolute Neuts (auto) Absolute Nucleated RBC Nucleated RBC % (auto) Smear Path Review PT INR APTT Sodium Potassium Chloride Carbon Dioxide Anion Gap BUN Creatinine Estim Creat Clear Calc Estimated GFR POC Glucose 259 H 265 H 130 H Random Glucose Calcium Iron TIBC % Saturation Unsat Iron Binding Troponin I High Sens B-Natriuretic Peptide Stool Occult Blood Vancomycin Trough Random Vancomycin Blood Type Antibody Screen Crossmatch 09/05/22 09/05/22 09/06/22 20:24 20:24 05:32 WBC 18.4 H RBC 2.45 L Hgb 7.0 L* Hct 22.3 L MCV 91.0 MCH 28.6 MCHC 31.4 RDW 15.5 Plt Count 235 MPV 10.9 Immature Gran % (Auto) Neut % (Auto) Lymph % (Auto) Mcleod % (Auto) Eos % (Auto) Baso % (Auto) Lymph # (Auto) Mcleod # (Auto) Eos # (Auto) Baso # (Auto) Abs Immat Gran (auto) Absolute Neuts (auto) Absolute Nucleated RBC 0.000 Nucleated RBC % (auto) 0.0 Smear Path Review SEE NOTE PT INR APTT Sodium Potassium Chloride Carbon Dioxide Anion Gap BUN Creatinine Estim Creat Clear Calc Estimated GFR POC Glucose Random Glucose Calcium Iron TIBC % Saturation Unsat Iron Binding Troponin I High Sens 7.0 B-Natriuretic Peptide 137 H Stool Occult Blood Vancomycin Trough Random Vancomycin Blood Type Antibody Screen Crossmatch 09/06/22 09/06/22 09/06/22 05:32 07:45 07:50 WBC RBC Hgb Hct MCV MCH MCHC RDW Plt Count MPV Immature Gran % (Auto) Neut % (Auto) Lymph % (Auto) Mcleod % (Auto) Eos % (Auto) Baso % (Auto) Lymph # (Auto) Mcleod # (Auto) Eos # (Auto) Baso # (Auto) Abs Immat Gran (auto) Absolute Neuts (auto) Absolute Nucleated RBC Nucleated RBC % (auto) Smear Path Review PT INR APTT Sodium 135 Potassium 3.9 Chloride 106 Carbon Dioxide 19 L Anion Gap 14 BUN 47 H Creatinine 2.92 H Estim Creat Clear Calc 21.8 Estimated GFR 21 POC Glucose 173 H Random Glucose 176 H Calcium 8.4 Iron TIBC % Saturation Unsat Iron Binding Troponin I High Sens B-Natriuretic Peptide Stool Occult Blood Vancomycin Trough Random Vancomycin Blood Type O Positive Antibody Screen NEGATIVE Crossmatch See Detail 09/06/22 09/06/22 09/06/22 10:59 13:31 16:09 WBC RBC Hgb Hct MCV MCH MCHC RDW Plt Count MPV Immature Gran % (Auto) Neut % (Auto) Lymph % (Auto) Mcleod % (Auto) Eos % (Auto) Baso % (Auto) Lymph # (Auto) Mcleod # (Auto) Eos # (Auto) Baso # (Auto) Abs Immat Gran (auto) Absolute Neuts (auto) Absolute Nucleated RBC Nucleated RBC % (auto) Smear Path Review PT INR APTT Sodium Potassium Chloride Carbon Dioxide Anion Gap BUN Creatinine Estim Creat Clear Calc Estimated GFR POC Glucose 190 H Random Glucose Calcium Iron TIBC % Saturation Unsat Iron Binding Troponin I High Sens B-Natriuretic Peptide Stool Occult Blood POSITIVE Vancomycin Trough Random Vancomycin 19.7 Blood Type Antibody Screen Crossmatch 09/06/22 09/06/22 09/07/22 16:10 20:40 05:52 WBC 11.0 H RBC 3.32 L D Hgb 9.9 L D Hct 29.6 L D MCV 89.2 MCH 29.8 MCHC 33.4 RDW 15.2 Plt Count 225 MPV 10.4 Immature Gran % (Auto) Neut % (Auto) Lymph % (Auto) Mcleod % (Auto) Eos % (Auto) Baso % (Auto) Lymph # (Auto) Mcleod # (Auto) Eos # (Auto) Baso # (Auto) Abs Immat Gran (auto) Absolute Neuts (auto) Absolute Nucleated RBC 0.000 Nucleated RBC % (auto) 0.0 Smear Path Review PT INR APTT Sodium Potassium Chloride Carbon Dioxide Anion Gap BUN Creatinine Estim Creat Clear Calc Estimated GFR POC Glucose 212 H 234 H Random Glucose Calcium Iron TIBC % Saturation Unsat Iron Binding Troponin I High Sens B-Natriuretic Peptide Stool Occult Blood Vancomycin Trough Random Vancomycin Blood Type Antibody Screen Crossmatch 09/07/22 09/07/22 09/07/22 05:52 05:52 07:20 WBC RBC Hgb Hct MCV MCH MCHC RDW Plt Count MPV Immature Gran % (Auto) Neut % (Auto) Lymph % (Auto) Mcleod % (Auto) Eos % (Auto) Baso % (Auto) Lymph # (Auto) Mcleod # (Auto) Eos # (Auto) Baso # (Auto) Abs Immat Gran (auto) Absolute Neuts (auto) Absolute Nucleated RBC Nucleated RBC % (auto) Smear Path Review PT INR APTT Sodium 136 Potassium 3.9 Chloride 107 Carbon Dioxide 19 L Anion Gap 14 BUN 49 H Creatinine 2.94 H Estim Creat Clear Calc 21.6 Estimated GFR 21 POC Glucose 204 H Random Glucose 214 H Calcium 8.6 Iron TIBC % Saturation Unsat Iron Binding Troponin I High Sens B-Natriuretic Peptide Stool Occult Blood Vancomycin Trough Random Vancomycin 18.9 Blood Type Antibody Screen Crossmatch 09/07/22 09/07/22 09/07/22 11:14 14:09 16:07 WBC RBC Hgb Hct MCV MCH MCHC RDW Plt Count MPV Immature Gran % (Auto) Neut % (Auto) Lymph % (Auto) Mcleod % (Auto) Eos % (Auto) Baso % (Auto) Lymph # (Auto) Mcleod # (Auto) Eos # (Auto) Baso # (Auto) Abs Immat Gran (auto) Absolute Neuts (auto) Absolute Nucleated RBC Nucleated RBC % (auto) Smear Path Review PT INR APTT Sodium Potassium Chloride Carbon Dioxide Anion Gap BUN Creatinine Estim Creat Clear Calc Estimated GFR POC Glucose 243 H 285 H Random Glucose Calcium Iron TIBC % Saturation Unsat Iron Binding Troponin I High Sens B-Natriuretic Peptide Stool Occult Blood Vancomycin Trough Random Vancomycin 17.3 Blood Type Antibody Screen Crossmatch 09/07/22 09/08/22 09/08/22 20:08 05:14 06:59 WBC RBC Hgb Hct MCV MCH MCHC RDW Plt Count MPV Immature Gran % (Auto) Neut % (Auto) Lymph % (Auto) Mcleod % (Auto) Eos % (Auto) Baso % (Auto) Lymph # (Auto) Mcleod # (Auto) Eos # (Auto) Baso # (Auto) Abs Immat Gran (auto) Absolute Neuts (auto) Absolute Nucleated RBC Nucleated RBC % (auto) Smear Path Review PT INR APTT Sodium Potassium Chloride Carbon Dioxide Anion Gap BUN Creatinine 2.60 H Estim Creat Clear Calc 24.5 Estimated GFR 24 POC Glucose 291 H Random Glucose Calcium Iron TIBC % Saturation Unsat Iron Binding Troponin I High Sens B-Natriuretic Peptide Stool Occult Blood Vancomycin Trough Random Vancomycin 16.1 Blood Type Antibody Screen Crossmatch 06/24/23 06/24/23 06/24/23 07:07 07:16 11:20 WBC 9.6 RBC 3.26 L Hgb 9.5 L Hct 29.2 L MCV 89.6 MCH 29.1 MCHC 32.5 RDW 15.2 Plt Count 235 MPV 10.2 Immature Gran % (Auto) 1.0 H Neut % (Auto) 84.7 H Lymph % (Auto) 5.9 L Mcleod % (Auto) 6.8 Eos % (Auto) 1.3 Baso % (Auto) 0.3 Lymph # (Auto) 0.6 L Mcleod # (Auto) 0.7 Eos # (Auto) 0.1 Baso # (Auto) 0.0 Abs Immat Gran (auto) 0.10 H Absolute Neuts (auto) 8.1 Absolute Nucleated RBC 0.000 Nucleated RBC % (auto) 0.0 Smear Path Review PT INR APTT Sodium Potassium Chloride Carbon Dioxide Anion Gap BUN Creatinine Estim Creat Clear Calc Estimated GFR POC Glucose 192 H 263 H Random Glucose Calcium Iron TIBC % Saturation Unsat Iron Binding Troponin I High Sens B-Natriuretic Peptide Stool Occult Blood Vancomycin Trough Random Vancomycin Blood Type Antibody Screen Crossmatch 09/08/22 09/08/22 09/08/22 14:29 16:30 21:02 WBC RBC Hgb Hct MCV MCH MCHC RDW Plt Count MPV Immature Gran % (Auto) Neut % (Auto) Lymph % (Auto) Mcleod % (Auto) Eos % (Auto) Baso % (Auto) Lymph # (Auto) Mcleod # (Auto) Eos # (Auto) Baso # (Auto) Abs Immat Gran (auto) Absolute Neuts (auto) Absolute Nucleated RBC Nucleated RBC % (auto) Smear Path Review PT INR APTT Sodium Potassium Chloride Carbon Dioxide Anion Gap BUN Creatinine Estim Creat Clear Calc Estimated GFR POC Glucose 319 H 276 H Random Glucose Calcium Iron TIBC % Saturation Unsat Iron Binding Troponin I High Sens B-Natriuretic Peptide Stool Occult Blood Vancomycin Trough 14.5 Random Vancomycin Blood Type Antibody Screen Crossmatch 09/09/22 09/09/22 09/09/22 07:19 08:18 11:51 WBC RBC Hgb Hct MCV MCH MCHC RDW Plt Count MPV Immature Gran % (Auto) Neut % (Auto) Lymph % (Auto) Mcleod % (Auto) Eos % (Auto) Baso % (Auto) Lymph # (Auto) Mcleod # (Auto) Eos # (Auto) Baso # (Auto) Abs Immat Gran (auto) Absolute Neuts (auto) Absolute Nucleated RBC Nucleated RBC % (auto) Smear Path Review PT INR APTT Sodium Potassium Chloride Carbon Dioxide Anion Gap BUN Creatinine 2.47 H Estim Creat Clear Calc 25.8 Estimated GFR 25 POC Glucose 177 H 191 H Random Glucose Calcium Iron TIBC % Saturation Unsat Iron Binding Troponin I High Sens B-Natriuretic Peptide Stool Occult Blood Vancomycin Trough Random Vancomycin Blood Type Antibody Screen Crossmatch 09/09/22 09/09/22 09/09/22 16:13 19:11 20:24 WBC RBC Hgb Hct MCV MCH MCHC RDW Plt Count MPV Immature Gran % (Auto) Neut % (Auto) Lymph % (Auto) Mcleod % (Auto) Eos % (Auto) Baso % (Auto) Lymph # (Auto) Mcleod # (Auto) Eos # (Auto) Baso # (Auto) Abs Immat Gran (auto) Absolute Neuts (auto) Absolute Nucleated RBC Nucleated RBC % (auto) Smear Path Review PT INR APTT Sodium Potassium Chloride Carbon Dioxide Anion Gap BUN Creatinine Estim Creat Clear Calc Estimated GFR POC Glucose 318 H 279 H Random Glucose Calcium Iron TIBC % Saturation Unsat Iron Binding Troponin I High Sens B-Natriuretic Peptide Stool Occult Blood Vancomycin Trough Random Vancomycin 18.1 Blood Type Antibody Screen Crossmatch 09/10/22 09/10/22 09/10/22 05:34 05:34 07:19 WBC 9.8 RBC 3.32 L Hgb 9.6 L Hct 29.7 L MCV 89.5 MCH 28.9 MCHC 32.3 RDW 15.4 Plt Count 197 MPV 10.6 Immature Gran % (Auto) Neut % (Auto) Lymph % (Auto) Mcleod % (Auto) Eos % (Auto) Baso % (Auto) Lymph # (Auto) Mcleod # (Auto) Eos # (Auto) Baso # (Auto) Abs Immat Gran (auto) Absolute Neuts (auto) Absolute Nucleated RBC 0.000 Nucleated RBC % (auto) 0.0 Smear Path Review PT INR APTT Sodium 136 Potassium 3.5 Chloride 105 Carbon Dioxide 21 L Anion Gap 14 BUN 44 H Creatinine 2.85 H Estim Creat Clear Calc 22.3 Estimated GFR 21 POC Glucose 183 H Random Glucose 185 H Calcium 8.5 Iron TIBC % Saturation Unsat Iron Binding Troponin I High Sens B-Natriuretic Peptide Stool Occult Blood Vancomycin Trough Random Vancomycin Blood Type Antibody Screen Crossmatch 09/10/22 09/10/22 09/10/22 11:07 16:10 19:02 WBC RBC Hgb Hct MCV MCH MCHC RDW Plt Count MPV Immature Gran % (Auto) Neut % (Auto) Lymph % (Auto) Mcleod % (Auto) Eos % (Auto) Baso % (Auto) Lymph # (Auto) Mcleod # (Auto) Eos # (Auto) Baso # (Auto) Abs Immat Gran (auto) Absolute Neuts (auto) Absolute Nucleated RBC Nucleated RBC % (auto) Smear Path Review PT INR APTT Sodium Potassium Chloride Carbon Dioxide Anion Gap BUN Creatinine Estim Creat Clear Calc Estimated GFR POC Glucose 220 H 239 H Random Glucose Calcium Iron TIBC % Saturation Unsat Iron Binding Troponin I High Sens B-Natriuretic Peptide Stool Occult Blood Vancomycin Trough Random Vancomycin 15.0 Blood Type Antibody Screen Crossmatch 09/10/22 09/11/22 09/11/22 20:35 05:33 07:24 WBC RBC Hgb Hct MCV MCH MCHC RDW Plt Count MPV Immature Gran % (Auto) Neut % (Auto) Lymph % (Auto) Mcleod % (Auto) Eos % (Auto) Baso % (Auto) Lymph # (Auto) Mcleod # (Auto) Eos # (Auto) Baso # (Auto) Abs Immat Gran (auto) Absolute Neuts (auto) Absolute Nucleated RBC Nucleated RBC % (auto) Smear Path Review PT INR APTT Sodium Potassium Chloride Carbon Dioxide Anion Gap BUN Creatinine 2.74 H Estim Creat Clear Calc 23.2 Estimated GFR 22 POC Glucose 249 H 178 H Random Glucose Calcium Iron TIBC % Saturation Unsat Iron Binding Troponin I High Sens B-Natriuretic Peptide Stool Occult Blood Vancomycin Trough Random Vancomycin Blood Type Antibody Screen Crossmatch 09/11/22 09/11/22 09/11/22 11:24 16:00 17:00 WBC RBC Hgb Hct MCV MCH MCHC RDW Plt Count MPV Immature Gran % (Auto) Neut % (Auto) Lymph % (Auto) Mcleod % (Auto) Eos % (Auto) Baso % (Auto) Lymph # (Auto) Mcleod # (Auto) Eos # (Auto) Baso # (Auto) Abs Immat Gran (auto) Absolute Neuts (auto) Absolute Nucleated RBC Nucleated RBC % (auto) Smear Path Review PT INR APTT Sodium Potassium Chloride Carbon Dioxide Anion Gap BUN Creatinine Estim Creat Clear Calc Estimated GFR POC Glucose 270 H 260 H Random Glucose Calcium Iron TIBC % Saturation Unsat Iron Binding Troponin I High Sens B-Natriuretic Peptide Stool Occult Blood Vancomycin Trough Random Vancomycin 17.0 Blood Type Antibody Screen Crossmatch 09/11/22 09/12/22 09/12/22 20:41 05:38 05:38 WBC 11.1 H RBC 3.73 L Hgb 10.7 L Hct 33.4 L MCV 89.5 MCH 28.7 MCHC 32.0 RDW 15.3 Plt Count 222 MPV 10.6 Immature Gran % (Auto) 0.9 H Neut % (Auto) 83.1 H Lymph % (Auto) 6.2 L Mcleod % (Auto) 7.2 Eos % (Auto) 1.9 Baso % (Auto) 0.7 Lymph # (Auto) 0.7 L Mcleod # (Auto) 0.8 Eos # (Auto) 0.2 Baso # (Auto) 0.1 Abs Immat Gran (auto) 0.10 H Absolute Neuts (auto) 9.2 H Absolute Nucleated RBC 0.000 Nucleated RBC % (auto) 0.0 Smear Path Review PT INR APTT Sodium Potassium Chloride Carbon Dioxide Anion Gap BUN Creatinine 2.47 H Estim Creat Clear Calc 25.8 Estimated GFR 25 POC Glucose 223 H Random Glucose Calcium Iron TIBC % Saturation Unsat Iron Binding Troponin I High Sens B-Natriuretic Peptide Stool Occult Blood Vancomycin Trough Random Vancomycin Blood Type Antibody Screen Crossmatch 09/12/22 09/12/22 09/12/22 07:25 11:17 16:03 WBC RBC Hgb Hct MCV MCH MCHC RDW Plt Count MPV Immature Gran % (Auto) Neut % (Auto) Lymph % (Auto) Mcleod % (Auto) Eos % (Auto) Baso % (Auto) Lymph # (Auto) Mcleod # (Auto) Eos # (Auto) Baso # (Auto) Abs Immat Gran (auto) Absolute Neuts (auto) Absolute Nucleated RBC Nucleated RBC % (auto) Smear Path Review PT INR APTT Sodium Potassium Chloride Carbon Dioxide Anion Gap BUN Creatinine Estim Creat Clear Calc Estimated GFR POC Glucose 154 H 268 H 292 H Random Glucose Calcium Iron TIBC % Saturation Unsat Iron Binding Troponin I High Sens B-Natriuretic Peptide Stool Occult Blood Vancomycin Trough Random Vancomycin Blood Type Antibody Screen Crossmatch 09/12/22 09/12/22 09/13/22 19:13 20:15 05:28 WBC RBC Hgb Hct MCV MCH MCHC RDW Plt Count MPV Immature Gran % (Auto) Neut % (Auto) Lymph % (Auto) Mcleod % (Auto) Eos % (Auto) Baso % (Auto) Lymph # (Auto) Mcleod # (Auto) Eos # (Auto) Baso # (Auto) Abs Immat Gran (auto) Absolute Neuts (auto) Absolute Nucleated RBC Nucleated RBC % (auto) Smear Path Review PT INR APTT Sodium Potassium Chloride Carbon Dioxide Anion Gap BUN Creatinine 2.42 H Estim Creat Clear Calc 26.3 Estimated GFR 26 POC Glucose 350 H* Random Glucose Calcium Iron TIBC % Saturation Unsat Iron Binding Troponin I High Sens B-Natriuretic Peptide Stool Occult Blood Vancomycin Trough Random Vancomycin 15.5 Blood Type Antibody Screen Crossmatch 09/13/22 09/13/22 05:28 07:08 WBC 13.0 H RBC 3.73 L Hgb 10.7 L Hct 33.4 L MCV 89.5 MCH 28.7 MCHC 32.0 RDW 15.3 Plt Count 241 MPV 10.7 Immature Gran % (Auto) Neut % (Auto) Lymph % (Auto) Mcleod % (Auto) Eos % (Auto) Baso % (Auto) Lymph # (Auto) Mcleod # (Auto) Eos # (Auto) Baso # (Auto) Abs Immat Gran (auto) Absolute Neuts (auto) Absolute Nucleated RBC 0.000 Nucleated RBC % (auto) 0.0 Smear Path Review PT INR APTT Sodium Potassium Chloride Carbon Dioxide Anion Gap BUN Creatinine Estim Creat Clear Calc Estimated GFR POC Glucose 242 H Random Glucose Calcium Iron TIBC % Saturation Unsat Iron Binding Troponin I High Sens B-Natriuretic Peptide Stool Occult Blood Vancomycin Trough Random Vancomycin Blood Type Antibody Screen Crossmatch Airway Heart: Regular,paced Lungs: c Assessment and Plan Final Anesthetic Review Family History of Problems with Anesthesia: No History of Problems with Anesthesia: No ASA Class: III Final Preanesthetic Review: Meds/Allgs Chart Reviewed, Consent Obtained/Reviewed and Anes Risks/Benef Reviewed Patient Risk: Intermediate Procedure Risk: Low Anesthetic Plan Anesthetic Plan: GA Disposition: Standard PACU
--- NOTE | 2022-09-13 09:29 | PC.NURSE ---
Type & screen , per surgeon dr venegas & anesthesia Dr anderson, does not need to be renewed for this procedure.
--- NOTE | 2022-09-13 10:34 | HO.PM.IMPN ---
Subjective Subjective Date of Service: 09/13/22 Interval History: Right great toe amputation/cellulitis Review of Systems Feeling better, denies any chest pain or shortness of breath or fever.? Physical Exam Vital Signs: Vital Signs: Last Vital Signs Temp 98.0 F 09/13/22 09:13 Pulse 93 09/13/22 09:13 Resp 18 09/13/22 09:13 BP 115/59 L 09/13/22 09:13 Pulse Ox 95 09/13/22 09:13 O2 Del Method Room Air 09/13/22 09:13 O2 Flow Rate 98 09/11/22 20:00 Oxygen Flow Rate 2 09/06/22 10:00 BMI result Body Mass Index 28.8 Awake, interactive, not in distress Cvs: RRR, no JVP, no lower extremity edema chest : air entry fair, no crackles or wheezes or rhonchi GI:? soft,? Normal bowel sounds, Non tender,bs present. Skin : Warm, Dry, Rt foot resolving erythema and warmth around the area of surgery and dressing Neurological : Alert & oriented x3, No focal deficit Objective Data Active Medications Al Hydroxide/Mg Hydroxide (Magnesium Hydrox/Alum Hydrox 30 Ml Oral.Susp) 30 ml PO Q4H PRN PRN Reason: Dyspepsia Atorvastatin Calcium (Atorvastatin Calcium 20 Mg Tablet) 20 mg PO BEDTIME [facility] Last Admin: 09/12/22 20:51 Dose: 20 mg Documented By: CAPRICE Clotrimazole (Clotrimazole 1 % Cream 15 Gm Tube) 1 appl TOPICAL BID JIL; Protocol Last Admin: 09/12/22 20:51 Dose: 1 appl Documented By: CAPRICE Dextrose (Dextrose 50 % 25 Gm/50 Ml Syringe) 25 gm IVPUSH Q15M PRN; Protocol PRN Reason: per Hypoglycemia Standing Ord. Empagliflozin (Empagliflozin 10 Mg Tablet) 10 mg PO DAILY [facility] Last Admin: 09/12/22 08:22 Dose: 10 mg Documented By: AKBAR Fentanyl (Fentanyl Citrate/Pf 100 Mcg/2 Ml Vial) 25 mcg IVPUSH Q5M PRN; Protocol PRN Reason: Pain, Moderate(Pain Scale 4-6) Ferrous Sulfate (Ferrous Sulfate 324 Mg Tablet.) 324 mg PO BIDWM [facility] Last Admin: 09/12/22 16:54 Dose: 324 mg Documented By: HO.MATTHEP Finasteride (Finasteride 5 Mg Tablet) 5 mg PO DAILY [facility] Last Admin: 09/12/22 08:22 Dose: 5 mg Documented By: AKBAR Glucose (Glucose Gel 15 Gm Gel..Gram.) 15 gm PO Q15M PRN; Protocol PRN Reason: per Hypoglycemia Standing Ord. Vancomycin HCl 500 mg/ Sodium (Chloride) 110 mls @ 110 mls/hr IV Q24H [facility] Insulin Human Lispro (Insulin Lispro 100 Unit/Ml 3 Ml Vial) 0 unit SUBCUT QIDACHS [facility]; Protocol Last Admin: 09/13/22 08:32 Dose: Not Given Documented By: TADEO Non-Admin Reason: Physician Held Med Ondansetron HCl (Ondansetron Hcl 4 Mg/2 Ml Vial) 4 mg IVPUSH ONCE PRN PRN Reason: Nausea and Vomiting Oxycodone HCl (Oxycodone Hcl Immed Release 5 Mg Tablet) 5 mg PO Q4H PRN PRN Reason: Pain, Severe (Pain Scale 7-10) Last Admin: 09/12/22 23:15 Dose: 5 mg Documented By: CAPRICE Pharmacy Consult (Consult Rx Vancomycin Dosing) 1 each MISCELLANE DAILY PRN PRN Reason: Consult order Sodium Bicarbonate (Sodium Bicarbonate 650 Mg Tablet) 650 mg PO TID [facility] Last Admin: 09/12/22 20:51 Dose: 650 mg Documented By: CAPRICE Sodium Chloride (0.9 % Sodium Chloride Flush 3 Ml Syringe) [facility] Last Admin: 09/13/22 08:14 Dose: 3 ml Documented By: TADEO Vitamin D (Cholecalciferol (Vitamin D3) 25 Mcg Tablet) 50 mcg PO DAILY [facility] Last Admin: 09/12/22 08:22 Dose: 50 mcg Documented By: AKBAR Labs 09/13/22 05:28 09/13/22 05:28 Labs: Laboratory Results - last 24 hr 09/12/22 09/12/22 09/12/22 11:17 16:03 19:13 MCV MCH MCHC RDW Plt Count MPV Absolute Nucleated RBC Nucleated RBC % (auto) Estim Creat Clear Calc Estimated GFR POC Glucose 268 H 292 H Random Vancomycin 15.5 09/12/22 09/13/22 09/13/22 20:15 05:28 05:28 MCV 89.5 MCH 28.7 MCHC 32.0 RDW 15.3 Plt Count 241 MPV 10.7 Absolute Nucleated RBC 0.000 Nucleated RBC % (auto) 0.0 Estim Creat Clear Calc 26.3 Estimated GFR 26 POC Glucose 350 H* Random Vancomycin 09/13/22 07:08 MCV MCH MCHC RDW Plt Count MPV Absolute Nucleated RBC Nucleated RBC % (auto) Estim Creat Clear Calc Estimated GFR POC Glucose 242 H Random Vancomycin Assessment and Plan (1) Amputation of right great toe: Status: Acute (2) Cellulitis: Status: Acute Plan 81 years old male with PMH of CKD, CHF, recent OM, DM, HTN , PAD among others presented to the hospital for elective surgical amputation of right great toe. Right great toe amputation/cellulitis Operated on 09/03 concern for non-healing amputation site along with cellulitis vanco trough 15 .5 (09/12) continue IV Vancomycin(09/07/22) follow along surgery,ID consulted-going for suregry today Acute loss anemia on Chronic anemia 2/2 CKD Stable? s/p 2 units of pRBC 09/06 stool occult positive, as pt is stable and hgb stable since transfusion, recommend fup op for evaluation of stool occult positive anemia consider GI eval inp if has further drop in Hgb? follow H&H BPHContinue Finasteride and Doxazosin DMII with hyperglycemia POC, diabetic diet Jardiance adjusted SSI HLD Statin DVT PPx SCDs inpatient need:Right great toe amputation/cellulitis-need iv antibiotics ,going for foot surgery today Time Spent With Patient Time: Total time managing care of this patient today ____ minutes. Quality Stroke Does the patient have a stroke diagnosis?: No VTE Prior VTE?: No VTE Risk Level:: Medical - moderate - high VTE Device Contraindication: Treatment Not Indicated VTE Drug Contraindication: N/A - Med Ordered
--- NOTE | 2022-09-13 11:00 | W.PM.OPN ---
Operative Note Operative Note Date of Service: 09/13/22 Narrative: Operative note by [facility] Preoperative diagnosis: Nonhealing right foot diabetic ulcer Postoperative diagnosis: Same Procedure: Right foot transmetatarsal amputation Surgeon:Gato Land M.D. Benefits Coordinator: None Anesthesia: General Specimens: 1 Drains: None Estimated blood loss: Minimal Indications: Complex 82-year-old diabetic gentleman I had undergone right great toe amputation. The foot has remained nonhealing and opened up. Also of issue is the fact that arterial intervention cannot be done on the patient due to propensity to bleed from his bladder cancer. He now presents for transmetatarsal amputation. He does recognize he is at risk for further amputation. The patient has signed the informed consent after reviewing risks, complications, benefits, and alternatives previously discussed with the patient. The patient was given the opportunity to ask any additional questions or voice any concerns. All questions were answered to the patient's satisfaction. Procedure in detail: Patient was brought to the operating room prior to which a time-out was called for patient identification site verification. Right foot was prepped and draped in standard surgical fashion. Curvilinear incision was carried out over the dorsum of the foot over the metatarsal heads. We created a posterior flap. It was difficult to form this posterior flap as the prior great toe amputation site had significant necrotic tissue associated with it. We had to fashion a posterior flap. Once this was accomplished we used electrocautery to get down through the skin fascia and cauterize any bleeders. Once we were across we used a [place] elevator to create a flap. We used a prior our saw to go across all metatarsal heads. Once this was done using electrocautery we created a posterior flap and we removed the foot. Once this was done all the additional necrotic tissue around the great toe was also cleared up. Wound was thoroughly irrigated. The posterior flap was brought up on to the anterior aspect using 2 0 Polysorb sutures NM interrupted fashion. Once this was all accomplished we used a 3-0 Polysorb in a mattress fashion to close off the skin. And also skin clips. Xeroform and a sterile dressing were applied. At the end the case sponge instrument counts were correct. Patient tolerated the procedure well. Returned to recovery with stable vitals. This note is constructed using voice recognition software. While every effort has been made to ensure accuracy, service manager errors may have been included. Thank you for allowing me to participate in the care of your patient. Yours sincerely, Gato Land MD, FACS, R.P.V.I.
--- NOTE | 2022-09-13 11:26 | MHC.SHP ---
Pre-Procedural Eval Section A Date of Service: 09/13/22 The patient is an INPATIENT: Yes Changes since office visit: Yes Patient answered all questions The History & Physical has been completed within 30 days and I have reviewed it.: Yes Section B Chief Complaint: Postop Allergies: Allergies Allergy/AdvReac Type Severity Reaction Status Date / Time lisinopril [LISINOPRIL] Allergy Severe ANGIOEDEMA Verified 08/30/22 10:56 Plan I have reviewed the history and physical and performed a pertinent physical examination on my patient. No changes have occurred unless specified. Time Spent With Patient Time: Total time managing care of this patient today ____ minutes.
[2022-09-13 12:02] LABS: Glucose, Whole Blood 239 mg/dL (60-115)
[2022-09-13] MEDS: Insulin Lispro 100 UNIT/ML 3 ML VIAL SUBCUT ×3 (12:15→20:41)
[2022-09-13] MEDS: Cholecalciferol (Vitamin D3) 25 MCG TABLET 50 MCG PO (12:15)
[2022-09-13] MEDS: Empagliflozin 10 MG TABLET PO (12:16)
[2022-09-13] MEDS: Finasteride 5 MG TABLET PO (12:17)
[2022-09-13] MEDS: Clotrimazole 1 % Cream 15 GM TUBE 1 APPL TOPICAL ×2 (12:19→20:20)
[2022-09-13] MEDS: Sodium Bicarbonate 650 MG TABLET PO ×2 (15:13→20:13)
[2022-09-13 16:12] LABS: Glucose, Whole Blood 290 mg/dL (60-115)
[2022-09-13] MEDS: oxyCODONE HCl Immed Release 5 MG TABLET PO (16:27)
[2022-09-13] MEDS: Ferrous Sulfate 324 MG TABLET.DR PO (16:27)
[2022-09-13 19:24] LABS: Vancomycin Random 13.9 mcg/mL (15-20)
--- NOTE | 2022-09-13 19:33 | HE.PHANOTE ---
VANCOMYCIN ADDENDUM PATIENT LAST RECEIVED 500 MG ON 09/10/22, HIS LEVEL HAS SLOWLY DECREASED TO 13.9, WILL GIVE ANOTHER DOSE OF 500 MG AND RECHECK A LEVEL BEFORE ANOTHER DOSE.
[2022-09-13] MEDS: Atorvastatin Calcium 20 MG TABLET PO (20:13)
[2022-09-13] MEDS: Morphine Sulfate 4 MG/ML CARTRIDGE IVPUSH (20:13)
[2022-09-13] MEDS: vancomycin HCL 500 MG in 0.9 % Sodium Chloride 100 ML 110 MG IV (20:14)
[2022-09-13 20:24] LABS: Glucose, Whole Blood 352 mg/dL (60-115)
[2022-09-14 03:26] VITALS: BP 135/62; PULSE 100; RESP 17; TEMP 36.6; O2SAT 95
[2022-09-14 06:08] LABS: Hemoglobin 10.2 g/dl (14.0-18.0); Mean Corpuscular HGB Conc 31.9 g/dl (31.0-36.0); Mean Corpuscular Hemoglobin 28.5 pg (27.0-33.0); Mean Corpuscular Volume 89.4 fL (80.0-98.0); Mean Platelet Volume 10.8 fL (9.4-12.4); Platelet Count 261 X10*3/uL (160-400); Red Blood Count 3.58 X10*6/uL (4.60-5.80); Red Cell Distribution Width 15.1 % (11.0-16.0); White Blood Count 16.4 X10*3/uL (4.8-10.8)
[2022-09-14 06:26] LABS: Anion Gap 14 (12-20); Blood Urea Nitrogen 51 mg/dL (9-16); Carbon Dioxide 23 mmol/L (22-29); Chloride 106 mmol/L (96-108); Creatinine Clr Calc Pharmacy 22.3; Estimated Glomerular Filt Rate 21; Glucose Random 150 mg/dL (60-115); Potassium 4.3 mmol/L (3.3-5.1); Sodium 139 mmol/L (135-145)
[2022-09-14] MEDS: Empagliflozin 10 MG TABLET PO (07:21)
[2022-09-14] MEDS: 0.9 % Sodium Chloride Flush 3 ML SYRINGE IVFLUSH ×3 (07:21→21:19)
[2022-09-14] MEDS: Finasteride 5 MG TABLET PO (07:21)
[2022-09-14] MEDS: Sodium Bicarbonate 650 MG TABLET PO ×3 (07:21→21:16)
[2022-09-14] MEDS: Cholecalciferol (Vitamin D3) 25 MCG TABLET 50 MCG PO (07:21)
[2022-09-14] MEDS: Ferrous Sulfate 324 MG TABLET.DR PO ×2 (07:21→16:19)
[2022-09-14] MEDS: Clotrimazole 1 % Cream 15 GM TUBE 1 APPL TOPICAL ×2 (07:21→21:18)
[2022-09-14] MEDS: oxyCODONE HCl Immed Release 5 MG TABLET PO (07:21)
[2022-09-14 07:24] LABS: Glucose, Whole Blood 152 mg/dL (60-115)
[2022-09-14 07:28] VITALS: BP 109/55; PULSE 100; RESP 18; TEMP 36.4; O2SAT 94
[2022-09-14] MEDS: Insulin Lispro 100 UNIT/ML 3 ML VIAL SUBCUT ×4 (08:00→21:16)
--- NOTE | 2022-09-14 10:56 | HO.POSTANES ---
Post Anesthesia Evaluation Post Anesthesia Evaluation Date of Service: 09/14/22 Vital Signs: Vital Signs Temp Pulse Resp BP Pulse Ox O2 Del Method 09/14/22 07:28 97.6 F 100 18 109/55 L 94 Room Air 09/14/22 03:26 98 F 100 17 135/62 95 Room Air 09/13/22 23:56 97.8 F 70 18 130/70 95 Room Air Anesthesia: General Mental Status: Awake Pain Control: Satisfactory Nausea/Vomiting: None Hydration: Adequate Anesthesia-Related Issues: No Anes. Related Issues
--- NOTE | 2022-09-14 10:58 | MHC.CLN ---
F/U DIET=DIABETIC 2200 KCALS. INTAKE AT MEALS USUALLY GOOD, 50-100%. STAGE III WOUND TO LEFT HEEL. INCREASED NUTRITION NEEDS FOR WOUND HEALING. ELEVATED BUN AND Cr DUE TO CKD. NO SUPPLEMENT AT THIS TIME DUE TO ELEVATED LABS AND USUALLY GOOD PO. 09/13 RIGHT FOOT TRANSMETATARSAL AMP. FOLLOW FOR INTAKE, LABS, AND WOUND HEALING.
[2022-09-14 11:01] LABS: Glucose, Whole Blood 212 mg/dL (60-115)
--- NOTE | 2022-09-14 11:34 | HO.PM.IMPN ---
Subjective Subjective Date of Service: 09/14/22 Interval History: Right great toe amputation/cellulitis Review of Systems Feeling better, denies any chest pain or shortness of breath or fever.? Physical Exam Vital Signs: Vital Signs: Last Vital Signs Temp 97.6 F 09/14/22 07:28 Pulse 100 09/14/22 07:28 Resp 18 09/14/22 07:28 BP 109/55 L 09/14/22 07:28 Pulse Ox 94 09/14/22 07:28 O2 Del Method Room Air 09/14/22 07:28 O2 Flow Rate 2 09/13/22 11:05 Oxygen Flow Rate 2 09/06/22 10:00 BMI result Body Mass Index 28.8 Awake, interactive, not in distress Cvs: RRR, no JVP, no lower extremity edema chest : air entry fair, no crackles or wheezes or rhonchi GI:? soft,? Normal bowel sounds, Non tender,bs present. Skin : Warm, Dry, s/p right foot-transmetatarsal amputation-please see pic below . Neurological : Alert & oriented x3, No focal deficit Skin: Other: Objective Data Active Medications Al Hydroxide/Mg Hydroxide (Magnesium Hydrox/Alum Hydrox 30 Ml Oral.Susp) 30 ml PO Q4H PRN PRN Reason: Dyspepsia Atorvastatin Calcium (Atorvastatin Calcium 20 Mg Tablet) 20 mg PO BEDTIME [facility]S [facility] 234 BEDS AT [facility] Last Admin: 09/13/22 20:13 Dose: 20 mg Documented By: CAPRICE Clotrimazole (Clotrimazole 1 % Cream 15 Gm Tube) 1 appl TOPICAL BID JIL; Protocol Last Admin: 09/14/22 07:21 Dose: 1 appl Documented By: SADAF Dextrose (Dextrose 50 % 25 Gm/50 Ml Syringe) 25 gm IVPUSH Q15M PRN; Protocol PRN Reason: per Hypoglycemia Standing Ord. Empagliflozin (Empagliflozin 10 Mg Tablet) 10 mg PO DAILY [facility] 234 BEDS AT THE [facility] Last Admin: 09/14/22 07:21 Dose: 10 mg Documented By: SADAF Ferrous Sulfate (Ferrous Sulfate 324 Mg Tablet.) 324 mg PO BIDWM COUNTS INCLUDE 234 BEDS AT THE [facility] Last Admin: 09/14/22 07:21 Dose: 324 mg Documented By: SADAF Finasteride (Finasteride 5 Mg Tablet) 5 mg PO DAILY [facility]S [facility]CLUDE 234 BEDS AT THE [facility] Last Admin: 09/14/22 07:21 Dose: 5 mg Documented By: SADAF Glucose (Glucose Gel 15 Gm Gel..Gram.) 15 gm PO Q15M PRN; Protocol PRN Reason: per Hypoglycemia Standing Ord. Vancomycin HCl 500 mg/ Sodium (Chloride) 110 mls @ 110 mls/hr IV Q48H [facility]S [facility]CLUDE 234 BEDS AT THE [facility] Last Infusion: 09/13/22 21:40 Dose: 0 mls/hr Documented By: CAPRICE Insulin Human Lispro (Insulin Lispro 100 Unit/Ml 3 Ml Vial) 0 unit SUBCUT QIDACHS [facility]S [facility]CLUDE 234 BEDS AT THE [facility]; Protocol Last Admin: 09/14/22 08:00 Dose: 2 unit Documented By: TADEO Morphine Sulfate (Morphine Sulfate 4 Mg/Ml Cartridge) 4 mg IVPUSH Q4H PRN; Protocol PRN Reason: Pain, Severe (Pain Scale 7-10) Last Admin: 09/13/22 20:13 Dose: 4 mg Documented By: CAPRICE Oxycodone HCl (Oxycodone Hcl Immed Release 5 Mg Tablet) 5 mg PO Q4H PRN PRN Reason: Pain, Severe (Pain Scale 7-10) Last Admin: 09/14/22 07:21 Dose: 5 mg Documented By: SADAF Pharmacy Consult (Consult Rx Vancomycin Dosing) 1 each MISCELLANE DAILY PRN PRN Reason: Consult order Sodium Bicarbonate (Sodium Bicarbonate 650 Mg Tablet) 650 mg PO TID [facility]S [facility]CLUDE 234 BEDS AT THE [facility] Last Admin: 09/14/22 07:21 Dose: 650 mg Documented By: SADAF Sodium Chloride (0.9 % Sodium Chloride Flush 3 Ml Syringe) [facility] Last Admin: 09/14/22 07:21 Dose: 3 ml Documented By: SADAF Vitamin D (Cholecalciferol (Vitamin D3) 25 Mcg Tablet) 50 mcg PO DAILY [facility]S [facility]CLUDE 234 BEDS AT THE [facility] Last Admin: 09/14/22 07:21 Dose: 50 mcg Documented By: SADAF Labs 09/14/22 05:26 09/14/22 05:26 Labs: Laboratory Results - last 24 hr 09/13/22 09/13/22 09/13/22 11:46 16:09 19:02 MCV MCH MCHC RDW Plt Count MPV Absolute Nucleated RBC Nucleated RBC % (auto) Anion Gap Estim Creat Clear Calc Estimated GFR POC Glucose 239 H 290 H Random Glucose Calcium Random Vancomycin 13.9 L 09/13/22 09/14/22 09/14/22 20:20 05:26 05:26 MCV 89.4 MCH 28.5 MCHC 31.9 RDW 15.1 Plt Count 261 MPV 10.8 Absolute Nucleated RBC 0.000 Nucleated RBC % (auto) 0.0 Anion Gap 14 Estim Creat Clear Calc 22.3 Estimated GFR 21 POC Glucose 352 H* Random Glucose 150 H Calcium 9.0 Random Vancomycin 09/14/22 09/14/22 07:12 10:57 MCV MCH MCHC RDW Plt Count MPV Absolute Nucleated RBC Nucleated RBC % (auto) Anion Gap Estim Creat Clear Calc Estimated GFR POC Glucose 152 H 212 H Random Glucose Calcium Random Vancomycin Assessment and Plan (1) Cellulitis: Status: Acute Plan 81 years old male with PMH of CKD, CHF, recent OM, DM, HTN , PAD among others presented to the hospital for elective surgical amputation of right great toe. Right great toe amputation/cellulitis Operated on 09/03-concern for non-healing amputation site along with cellulitis-on 09/13 s/p transmetatarsal amputation vanco trough 13.9 surgery /Id following-continue IV Vancomycin(09/07/22) ?Acute loss anemia on Chronic anemia 2/2 CKD Stable? s/p 2 units of pRBC 09/06 stool occult positive, as pt is stable and hgb stable since transfusion, recommend fup op for evaluation of stool occult positive anemia consider GI eval inp if has further drop in Hgb? follow H&H BPHContinue Finasteride and Doxazosin DMII with hyperglycemia POC, diabetic diet Jardiance adjusted SSI HLD Statin DVT PPx SCDs inpatient need:Right great toe amputation/cellulitis-need iv antibiotics ,s/p transmetatarsal amputation-need monitering of foot surgery area for now to see if starts to heal. Time Spent With Patient Time: Total time managing care of this patient today ____ minutes. Quality Stroke Does the patient have a stroke diagnosis?: No VTE Prior VTE?: No VTE Risk Level:: Medical - moderate - high VTE Device Contraindication: Treatment Not Indicated VTE Drug Contraindication: N/A - Med Ordered
--- NOTE | 2022-09-14 12:26 | HO.VASCPN ---
Subjective Subjective Date of Service: 09/14/22 Patient reports: no new complaints and feels better Interval history: Patient seen and examined. No significant events overnight. He did have some initial pain but appears to be improving significantly. He now presents for postop evaluation. Of note he did have some dressing saturation overnight. Physical Exam Vital Signs: Vital Signs: Last Vital Signs Temp 97.6 F 09/14/22 07:28 Pulse 100 09/14/22 07:28 Resp 18 09/14/22 07:28 BP 109/55 L 09/14/22 07:28 Pulse Ox 94 09/14/22 07:28 O2 Del Method Room Air 09/14/22 07:28 O2 Flow Rate 2 09/13/22 11:05 Oxygen Flow Rate 2 09/06/22 10:00 BMI result Body Mass Index 28.8 Const: General: cooperative, healthy appearing and no acute distress Orientation/consciousness: oriented to person, oriented to place and oriented to time HEENT: Head: Yes normal to inspection Neck: Carotids: no bruits Chest: Chest palpation & inspection: normal inspection of the chest Resp: Effort & Inspection: normal respiratory effort and able to speak in complete sentences Auscultation: clear to auscultation bilaterally Cardio: Rate: regular rate Heart sounds: S1 normal heart sound present and S2 normal heart sound present GI: Inspection: Yes normal to inspection Skin: Other: General skin exam: no rashes or lesions noted Wounds: no wounds Neuro: General: oriented to person, oriented to place, oriented to time and CN's II-XI intact bilaterally Extrem: General: Yes normal to inspection, Yes full ROM and Yes no clubbing, cyanosis or edema Psych: Appearance: grossly normal and well kempt Speech and movement: Normal speech and movement present Affect: normal affect Progress Note: A&P Assessment and plan (1) PAD (peripheral artery disease): Status: Acute Assessment and Plan: In short patient is doing well status post trans met. Would continue antibiotics as the patient does have some cellulitis and the medial aspect where the great toe was appears to be a little bit tenuous. But overall doing relatively well. Would like to observe through the weekend. Plan for dressing change on Saturday. Should there be no issues would anticipate discharge for Saturday. Thank you for allowing me to participate in his care. Thank you to the hospitalists for their assistance in this complex case. Time Spent With Patient Time: Total time managing care of this patient today ____ minutes. Procedures Date of Service Date of Service: 09/14/22 Quality Stroke Does the patient have a stroke diagnosis?: No VTE Prior VTE?: No VTE Risk Level:: Medical - moderate - high VTE Device Contraindication: Treatment Not Indicated VTE Drug Contraindication: N/A - Med Ordered
--- NOTE | 2022-09-14 14:30 | P.CDIM_ITS ---
PROVIDER RESPONSE TEXT: To clarify, the appropriate diagnosis supported by the clinical indicators: Pressure (decubitus) ulcer QUERY TEXT: PHYSICIAN'S DOCUMENTATION REQUEST Date of Query: 09/10/2022 11:43 AM EDT Patient Name: Jacques Guadarrama Admit Date: 09/03/2022 Dear Murali Rojas, A review of the medical record indicates additional documentation may be needed. Please review below and update the documentation accordingly. Clinical Indicators: Per nursing pressure injury assessment 09/06/22: wound left heel, stage 3 slough yellow treated with silver alginate, gauze, kerlix PMH: DM, PAD Based on the above, could you please provide further information regarding the ulcer/wound: Diabetic ulcer Venous stasis ulcer Arterial (ischemic) ulcer Pressure (decubitus) ulcer Traumatic wound Please specify the location and laterality of the ulcer/wound Other (explain)Clinically unable to determine (explain)Thank you, Katherine Steen RN Use of terms such as suspected, likely, concern for, or probable (associated with a specific diagnosi s that is being evaluated, monitored, or treated as if it exists) are acceptable and can be coded in the inpatient se tting, when documented at the time of discharge. Please use your independent medical judgment in providing your response. THIS QUERY IS PART OF THE PERMANENT MEDICAL RECORD
[2022-09-14 15:24] VITALS: BP 117/89; PULSE 78; RESP 18; TEMP 36.9; O2SAT 98
[2022-09-14 15:51] LABS: Glucose, Whole Blood 293 mg/dL (60-115)
[2022-09-14 19:57] VITALS: BP 128/67; PULSE 106; RESP 17; TEMP 36.3; O2SAT 96
[2022-09-14 20:19] LABS: Glucose, Whole Blood 316 mg/dL (60-115)
[2022-09-14] MEDS: Atorvastatin Calcium 20 MG TABLET PO (21:16)
[2022-09-14 23:41] VITALS: BP 131/65; PULSE 96; RESP 16; TEMP 36.3; O2SAT 95
[2022-09-15 03:37] VITALS: BP 113/57; PULSE 92; RESP 16; TEMP 36.7; O2SAT 98
[2022-09-15 07:54] VITALS: BP 116/58; PULSE 96; RESP 16; TEMP 36.7; O2SAT 94
[2022-09-15 08:19] LABS: Creatinine Clr Calc Pharmacy 20.1; Estimated Glomerular Filt Rate 19
[2022-09-15] MEDS: Insulin Lispro 100 UNIT/ML 3 ML VIAL SUBCUT ×4 (08:20→21:26)
[2022-09-15] MEDS: Empagliflozin 10 MG TABLET PO (08:20)
[2022-09-15] MEDS: Ferrous Sulfate 324 MG TABLET.DR PO ×2 (08:21→16:50)
[2022-09-15] MEDS: Finasteride 5 MG TABLET PO (08:21)
[2022-09-15] MEDS: 0.9 % Sodium Chloride Flush 3 ML SYRINGE IVFLUSH ×3 (08:21→21:36)
[2022-09-15] MEDS: Cholecalciferol (Vitamin D3) 25 MCG TABLET 50 MCG PO (08:21)
[2022-09-15] MEDS: Sodium Bicarbonate 650 MG TABLET PO ×3 (08:21→21:26)
[2022-09-15] MEDS: Clotrimazole 1 % Cream 15 GM TUBE 1 APPL TOPICAL ×2 (08:22→21:38)
[2022-09-15 11:26] VITALS: BP 117/60; PULSE 92; RESP 16; TEMP 36.3; O2SAT 97
--- NOTE | 2022-09-15 14:15 | HO.PM.IMPN ---
Subjective Subjective Date of Service: 09/15/22 Interval History: no acute issues overall. Pain control adequate Review of Systems Denies chest pain Denies shortness of breath Denies nausea vomiting diarrhea Denies fever chills Physical Exam Vital Signs: Vital Signs: Last Vital Signs Temp 97.3 F 09/15/22 11:26 Pulse 92 09/15/22 11:26 Resp 16 09/15/22 11:26 BP 117/60 09/15/22 11:26 Pulse Ox 97 09/15/22 11:26 O2 Del Method Room Air 09/15/22 11:26 O2 Flow Rate 2 09/13/22 11:05 Oxygen Flow Rate 2 09/06/22 10:00 BMI result Body Mass Index 28.8 Const: Other: awake alert no acute distress Resp: Other: clear to auscultation bilaterally no rales rhonchi or wheezes Cardio: Other: no S4; positive S1-S2; no S3 murmurs rubs or gallops GI: Other: soft nontender nondistended normoactive bowel sounds Extrem: Other: right foot dressing clean dry and intact Objective Data Active Medications Al Hydroxide/Mg Hydroxide (Magnesium Hydrox/Alum Hydrox 30 Ml Oral.Susp) 30 ml PO Q4H PRN PRN Reason: Dyspepsia Atorvastatin Calcium (Atorvastatin Calcium 20 Mg Tablet) 20 mg PO BEDTIME [facility] Last Admin: 09/14/22 21:16 Dose: 20 mg Documented By: KENNETH Clotrimazole (Clotrimazole 1 % Cream 15 Gm Tube) 1 appl TOPICAL BID [facility]; Protocol Last Admin: 09/15/22 08:22 Dose: 1 appl Documented By: MARCELLA Dextrose (Dextrose 50 % 25 Gm/50 Ml Syringe) 25 gm IVPUSH Q15M PRN; Protocol PRN Reason: per Hypoglycemia Standing Ord. Empagliflozin (Empagliflozin 10 Mg Tablet) 10 mg PO DAILY [facility] Last Admin: 09/15/22 08:20 Dose: 10 mg Documented By: MARCELLA Ferrous Sulfate (Ferrous Sulfate 324 Mg Tablet.) 324 mg PO BIDWM [facility] Last Admin: 09/15/22 08:21 Dose: 324 mg Documented By: MARCELLA Finasteride (Finasteride 5 Mg Tablet) 5 mg PO DAILY [facility] Last Admin: 09/15/22 08:21 Dose: 5 mg Documented By: HO.COTEMA Glucose (Glucose Gel 15 Gm Gel..Gram.) 15 gm PO Q15M PRN; Protocol PRN Reason: per Hypoglycemia Standing Ord. Vancomycin HCl 500 mg/ Sodium (Chloride) 110 mls @ 110 mls/hr IV Q48H [facility] Last Infusion: 09/13/22 21:40 Dose: 0 mls/hr Documented By: CAPRICE Insulin Human Lispro (Insulin Lispro 100 Unit/Ml 3 Ml Vial) 0 unit SUBCUT QIDACHS [facility]; Protocol Last Admin: 09/15/22 12:10 Dose: 4 unit Documented By: MARCELLA Morphine Sulfate (Morphine Sulfate 4 Mg/Ml Cartridge) 4 mg IVPUSH Q4H PRN; Protocol PRN Reason: Pain, Severe (Pain Scale 7-10) Last Admin: 09/13/22 20:13 Dose: 4 mg Documented By: CAPRICE Oxycodone HCl (Oxycodone Hcl Immed Release 5 Mg Tablet) 5 mg PO Q4H PRN PRN Reason: Pain, Severe (Pain Scale 7-10) Last Admin: 09/14/22 07:21 Dose: 5 mg Documented By: SADAF Pharmacy Consult (Consult Rx Vancomycin Dosing) 1 each MISCELLANE DAILY PRN PRN Reason: Consult order Sodium Bicarbonate (Sodium Bicarbonate 650 Mg Tablet) 650 mg PO TID [facility] Last Admin: 09/15/22 08:21 Dose: 650 mg Documented By: MARCELLA Sodium Chloride (0.9 % Sodium Chloride Flush 3 Ml Syringe) [facility] Last Admin: 09/15/22 08:21 Dose: 3 ml Documented By: MARCELLA Vitamin D (Cholecalciferol (Vitamin D3) 25 Mcg Tablet) 50 mcg PO DAILY [facility] Last Admin: 09/15/22 08:21 Dose: 50 mcg Documented By: MARCELLA Labs 09/14/22 05:26 09/15/22 07:06 Labs: Laboratory Results - last 24 hr 09/14/22 09/14/22 09/15/22 15:46 20:16 07:06 Estim Creat Clear Calc 20.1 Estimated GFR 19 POC Glucose 293 H 316 H 09/15/22 09/15/22 07:09 11:07 Estim Creat Clear Calc Estimated GFR POC Glucose 153 H 223 H Assessment and Plan (1) Cellulitis: Status: Acute (2) Acute on chronic blood loss anemia: Status: Acute (3) Diabetes type 2, controlled: Status: Acute (4) Hypertension: Status: Acute Plan 81 years old male with PMH of CKD, CHF, recent OM, DM, HTN , PAD among others presented to the hospital for elective surgical amputation of right great toe. 1.Right great toe amputation/cellulitis -right TMA 09/13/2022 -Lenoo (9) - switch to oral doxycycline upon discha 2.?Acute on Chronic anemia 2/2 CKD 3 - daily CBC - treat as indicated 3.DMII - acceptable control on current therapies -lispro correctional scale/orals as per outpatient - adjust as indicated 4.Hypertension - acceptable control on current therapies - adjust as indicated Requires ongoing hospitalization for IV antibiotics to treat cellulitis after TMA Time Spent With Patient Time: Total time managing care of this patient today ____ minutes. Quality Stroke Does the patient have a stroke diagnosis?: No VTE Prior VTE?: No VTE Risk Level:: Medical - moderate - high VTE Device Contraindication: Treatment Not Indicated VTE Drug Contraindication: N/A - Med Ordered
[2022-09-15 15:25] VITALS: BP 127/59; PULSE 95; RESP 16; TEMP 36.3; O2SAT 94
[2022-09-15] MEDS: oxyCODONE HCl Immed Release 5 MG TABLET PO (16:53)
[2022-09-15 19:15] VITALS: BP 112/59; PULSE 104; RESP 20; TEMP 36.2; O2SAT 96
[2022-09-15] MEDS: Atorvastatin Calcium 20 MG TABLET PO (21:26)
[2022-09-15] MEDS: vancomycin HCL 500 MG in 0.9 % Sodium Chloride 100 ML 110 MG IV (21:27)
[2022-09-15 23:37] VITALS: BP 132/62; PULSE 96; RESP 14; TEMP 36.7; O2SAT 93
[2022-09-16 02:54] VITALS: BP 144/74; PULSE 93; RESP 16; TEMP 36.1; O2SAT 95
[2022-09-16 07:15] LABS: MANUAL DIFF FLAG NO
[2022-09-16 07:27] LABS: Basophils Absolute Auto 0.1 X10*3/uL (0.0-0.2); Basophils Percent Auto 0.5 % (0-2); Eosinophils Absolute Auto 0.3 X10*3/uL (0.0-0.4); Eosinophils Percent Auto 2.3 % (0-4); Hemoglobin 9.6 g/dl (14.0-18.0); Imm Gran Abs Auto 0.08 X10*3/uL (0.00-0.03); Imm Gran Pct Auto 0.7 % (0.0-0.4); Lymphocytes Absolute Auto 0.7 X10*3/uL (1.2-4.9); Lymphocytes Percent Auto 5.6 % (20-40); Mean Corpuscular Hemoglobin 28.2 pg (27.0-33.0); Mean Corpuscular Volume 90.9 fL (80.0-98.0); Monocytes Percent Auto 8.3 % (2-11); Neutrophils Absolute Auto 9.8 x10*3/uL (2.0-8.3); Neutrophils Percent Auto 82.6 % (45-73); Platelet Count 237 X10*3/uL (160-400); Red Blood Count 3.41 X10*6/uL (4.60-5.80); Red Cell Distribution Width 15.6 % (11.0-16.0); White Blood Count 11.8 X10*3/uL (4.8-10.8)
[2022-09-16 07:42] VITALS: BP 109/56; PULSE 84; RESP 16; TEMP 36.4; O2SAT 94
[2022-09-16 07:55] LABS: Alanine Aminotransferase 16 U/L (0-40); Albumin Level 2.2 g/dL (3.5-5.0); Alkaline Phosphatase 161 U/L (39-117); Anion Gap 14 (12-20); Aspartate Amino Transferase 34 U/L (5-37); Blood Urea Nitrogen 65 mg/dL (9-16); Calcium 9.2 mg/dL (8.4-10.2); Carbon Dioxide 23 mmol/L (22-29); Chloride 104 mmol/L (96-108); Creatinine Clr Calc Pharmacy 19.2; Estimated Glomerular Filt Rate 18; Glucose Fasting 163 mg/dL (60-99); Sodium 137 mmol/L (135-145); Total Protein 6.3 g/dL (6.5-8.0)
[2022-09-16] MEDS: Cholecalciferol (Vitamin D3) 25 MCG TABLET 50 MCG PO (07:56)
[2022-09-16] MEDS: Empagliflozin 10 MG TABLET PO (07:57)
[2022-09-16] MEDS: Ferrous Sulfate 324 MG TABLET.DR PO ×2 (07:57→16:49)
[2022-09-16] MEDS: Sodium Bicarbonate 650 MG TABLET PO ×3 (07:57→20:31)
[2022-09-16] MEDS: Finasteride 5 MG TABLET PO (07:57)
[2022-09-16] MEDS: Insulin Lispro 100 UNIT/ML 3 ML VIAL SUBCUT ×4 (07:57→20:31)
[2022-09-16] MEDS: Clotrimazole 1 % Cream 15 GM TUBE 1 APPL TOPICAL ×2 (08:03→21:35)
[2022-09-16] MEDS: 0.9 % Sodium Chloride Flush 3 ML SYRINGE IVFLUSH ×3 (08:04→20:38)
--- NOTE | 2022-09-16 10:40 | HO.PM.IMPN ---
Subjective Subjective Date of Service: 09/16/22 Interval History: Right great toe amputation/cellulitis Review of Systems s/p transmet amp on 09/13. ?denies any chest pain or shortness of breath or fever. Physical Exam Vital Signs: Vital Signs: Last Vital Signs Temp 97.5 F 09/16/22 07:42 Pulse 84 09/16/22 07:42 Resp 16 09/16/22 07:42 BP 109/56 L 09/16/22 07:42 Pulse Ox 94 09/16/22 07:42 O2 Del Method Room Air 09/16/22 07:42 O2 Flow Rate 2 09/13/22 11:05 Oxygen Flow Rate 2 09/06/22 10:00 BMI result Body Mass Index 28.8 Awake, interactive, not in distress Cvs: RRR, no JVP, no lower extremity edema chest : air entry fair, no crackles or wheezes or rhonchi GI:? soft,? Normal bowel sounds, Non tender,bs present. Skin : Warm, Dry, s/p right foot-transmetatarsal amputation wrapped,no discharge or pain. Neurological : Alert & oriented x3, No focal deficit Objective Data Active Medications Al Hydroxide/Mg Hydroxide (Magnesium Hydrox/Alum Hydrox 30 Ml Oral.Susp) 30 ml PO Q4H PRN PRN Reason: Dyspepsia Atorvastatin Calcium (Atorvastatin Calcium 20 Mg Tablet) 20 mg PO BEDTIME [facility] Last Admin: 09/15/22 21:26 Dose: 20 mg Documented By: MCKINLEY Clotrimazole (Clotrimazole 1 % Cream 15 Gm Tube) 1 appl TOPICAL BID [facility]; Protocol Last Admin: 09/16/22 08:03 Dose: 1 appl Documented By: MICHELLE Dextrose (Dextrose 50 % 25 Gm/50 Ml Syringe) 25 gm IVPUSH Q15M PRN; Protocol PRN Reason: per Hypoglycemia Standing Ord. Empagliflozin (Empagliflozin 10 Mg Tablet) 10 mg PO DAILY [facility] Last Admin: 09/16/22 07:57 Dose: 10 mg Documented By: MICHELLE Ferrous Sulfate (Ferrous Sulfate 324 Mg Tablet.) 324 mg PO BIDWM [facility] Last Admin: 09/16/22 07:57 Dose: 324 mg Documented By: MICHELLE Finasteride (Finasteride 5 Mg Tablet) 5 mg PO DAILY [facility] Last Admin: 09/16/22 07:57 Dose: 5 mg Documented By: MICHELLE Glucose (Glucose Gel 15 Gm Gel..Gram.) 15 gm PO Q15M PRN; Protocol PRN Reason: per Hypoglycemia Standing Ord. Vancomycin HCl 500 mg/ Sodium (Chloride) 110 mls @ 110 mls/hr IV Q48H [facility] Last Infusion: 09/15/22 22:30 Dose: 0 mls/hr Documented By: MCKINLEY Insulin Human Lispro (Insulin Lispro 100 Unit/Ml 3 Ml Vial) 0 unit SUBCUT QIDACHS [facility]; Protocol Last Admin: 09/16/22 07:57 Dose: 2 unit Documented By: MICHELLE Morphine Sulfate (Morphine Sulfate 4 Mg/Ml Cartridge) 4 mg IVPUSH Q4H PRN; Protocol PRN Reason: Pain, Severe (Pain Scale 7-10) Last Admin: 09/13/22 20:13 Dose: 4 mg Documented By: CAPRICE Oxycodone HCl (Oxycodone Hcl Immed Release 5 Mg Tablet) 5 mg PO Q4H PRN PRN Reason: Pain, Severe (Pain Scale 7-10) Last Admin: 09/15/22 16:53 Dose: 5 mg Documented By: COTEMA Pharmacy Consult (Consult Rx Vancomycin Dosing) 1 each MISCELLANE DAILY PRN PRN Reason: Consult order Sodium Bicarbonate (Sodium Bicarbonate 650 Mg Tablet) 650 mg PO TID [facility] Last Admin: 09/16/22 07:57 Dose: 650 mg Documented By: MICHELLE Sodium Chloride (0.9 % Sodium Chloride Flush 3 Ml Syringe) 3 ml IVFLUSH QSHIFT [facility] Last Admin: 09/16/22 08:04 Dose: 3 ml Documented By: MICHELLE Vitamin D (Cholecalciferol (Vitamin D3) 25 Mcg Tablet) 50 mcg PO DAILY [facility] Last Admin: 09/16/22 07:56 Dose: 50 mcg Documented By: MICHELLE Labs 09/16/22 06:30 09/16/22 06:30 Labs: Laboratory Results - last 24 hr 09/15/22 09/15/22 09/15/22 11:07 16:27 18:01 MCV MCH MCHC RDW Plt Count MPV Immature Gran % (Auto) Neut % (Auto) Lymph % (Auto) [place] % (Auto) Eos % (Auto) Baso % (Auto) Lymph # (Auto) [place] # (Auto) Eos # (Auto) Baso # (Auto) Abs Immat Gran (auto) Absolute Neuts (auto) Absolute Nucleated RBC Nucleated RBC % (auto) Anion Gap Estim Creat Clear Calc Estimated GFR POC Glucose 223 H 235 H Fasting Glucose Calcium Total Bilirubin AST ALT Alkaline Phosphatase Total Protein Albumin Random Vancomycin 15.0 09/15/22 09/16/22 09/16/22 20:01 06:30 06:30 MCV 90.9 MCH 28.2 MCHC 31.0 RDW 15.6 Plt Count 237 MPV 11.0 Immature Gran % (Auto) 0.7 H Neut % (Auto) 82.6 H Lymph % (Auto) 5.6 L [place] % (Auto) 8.3 Eos % (Auto) 2.3 Baso % (Auto) 0.5 Lymph # (Auto) 0.7 L [place] # (Auto) 1.0 Eos # (Auto) 0.3 Baso # (Auto) 0.1 Abs Immat Gran (auto) 0.08 H Absolute Neuts (auto) 9.8 H Absolute Nucleated RBC 0.000 Nucleated RBC % (auto) 0.0 Anion Gap 14 Estim Creat Clear Calc 19.2 Estimated GFR 18 POC Glucose 263 H Fasting Glucose 163 H Calcium 9.2 Total Bilirubin 1.0 AST 34 ALT 16 Alkaline Phosphatase 161 H Total Protein 6.3 L Albumin 2.2 L Random Vancomycin 09/16/22 07:49 MCV MCH MCHC RDW Plt Count MPV Immature Gran % (Auto) Neut % (Auto) Lymph % (Auto) [place] % (Auto) Eos % (Auto) Baso % (Auto) Lymph # (Auto) [place] # (Auto) Eos # (Auto) Baso # (Auto) Abs Immat Gran (auto) Absolute Neuts (auto) Absolute Nucleated RBC Nucleated RBC % (auto) Anion Gap Estim Creat Clear Calc Estimated GFR POC Glucose 194 H Fasting Glucose Calcium Total Bilirubin AST ALT Alkaline Phosphatase Total Protein Albumin Random Vancomycin Assessment and Plan (1) Diabetes type 2, controlled: Status: Acute (2) Amputation of right great toe: Status: Acute (3) Cellulitis of foot, right: Status: Acute Plan 81 years old male with PMH of CKD, CHF, recent OM, DM, HTN , PAD among others presented to the hospital for elective surgical amputation of right great toe. 1.Right great toe amputation/cellulitis -right TMA? 09/13/2022 -Vanco trough 15 on 09/15/22. - switch to oral doxycycline upon discha 2.?Acute on Chronic anemia 2/2 CKD 3 - daily CBC - treat as indicated 3.DMII - acceptable control on current therapies -lispro correctional scale/orals as per outpatient - adjust as indicated 4.Hypertension - acceptable control on current therapies - adjust as indicated ?Requires ongoing hospitalization for IV antibiotics to treat cellulitis after TMA Time Spent With Patient Time: Total time managing care of this patient today ____ minutes. Quality Stroke Does the patient have a stroke diagnosis?: No VTE Prior VTE?: No VTE Risk Level:: Medical - moderate - high VTE Device Contraindication: Treatment Not Indicated VTE Drug Contraindication: N/A - Med Ordered
--- NOTE | 2022-09-16 12:44 | PM.CNNEP ---
History of Present Illness Reason for Consult Consult date: 09/18/22 Reason for consult: DEON Chief Complaint Chief complaint: Postop History of Present Illness Narrative: 81 years old male with PMH of CKD, CHF, recent OM, DM, HTN , PAD among others presented to the hospital for elective surgical amputation of right great toe h/o CKD with a baseline of 2.5 and now has superimposed DEON h/o bladder CA Review of Systems Review of Systems No headache. No nausea vomiting. No abdominal pain. Has Diarhea No shortness of breath. No cough. No dysuria urgency or hematuria. No edema. No rash. [facility] Past Medical History Medical History Acute osteomyelitis Back pain CKD (chronic kidney disease) stage 3, GFR 30-59 ml/min Congestive heart failure with LV diastolic dysfunction, NYHA class 3 Decubitus ulcer, heel Diabetes mellitus Gram-negative bacteremia H/O cardiac pacemaker Heart block History of COVID-19 Hyperlipidemia Hypertension Infection of right foot Iron deficiency anemia PAD (peripheral artery disease) Type 2 diabetes mellitus with unspecified complications Ulcer of left heel Ulcer of right 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 Urinary retention Family History Family History Brother Testicular cancer Family history: reviewed and not pertinent Surgical History Surgical History History of atherectomy History of back surgery History of esophagogastroduodenoscopy History of left hip replacement Hx of cataract extraction Hx of colonoscopy Social History Social History Household Members: Spouse Household Members Other:: 2 Housing: House Do you presently have visiting nurse or other home services: Yes Alcohol intake: former Patient Tobacco Use Status: Former Tobacco user Quit Date: 15 years Tobacco use type: Cigarette Use of substances other than those prescribed or required for medical reasons: No Currently Displaying Signs/Symptoms of Drug Intoxication Withdrawal: No Have you been hit, kicked, punched, or otherwise hurt by someone within the past year? If so, by whom?: No Do you feel safe in your current relationship?: No Is there a partner from a previous relationship who is making you feel unsafe now?: No Are you made to feel afraid or neglected: No Are you DNR?: No Advance Directives: Yes Advance Directives on File: Yes Advance Directives Date on File: 07/12/22 Do you have thoughts of harming others: None Do you have a plan to hurt others: No Plan Recently lost weight without trying: No Eating poorly because of decreased appetite: No Nutrition Risks: No Nutritional Risk Poor oral hygiene: No service: No Current occupational status: retired Meds Allergies Allergy/AdvReac Type Severity Reaction Status Date / Time lisinopril [LISINOPRIL] Allergy Severe ANGIOEDEMA Verified 08/30/22 10:56 Active Medications: Current Medications Al Hydroxide/Mg Hydroxide (Magnesium Hydrox/Alum Hydrox 30 Ml Oral.Susp) 30 ml PO Q4H PRN PRN Reason: Dyspepsia Atorvastatin Calcium (Atorvastatin Calcium 20 Mg Tablet) 20 mg PO BEDTIME [facility] Last Admin: 09/15/22 21:26 Dose: 20 mg Clotrimazole (Clotrimazole 1 % Cream 15 Gm Tube) 1 appl TOPICAL BID [facility]; Protocol Last Admin: 09/16/22 08:03 Dose: 1 appl Dextrose (Dextrose 50 % 25 Gm/50 Ml Syringe) 25 gm IVPUSH Q15M PRN; Protocol PRN Reason: per Hypoglycemia Standing Ord. Empagliflozin (Empagliflozin 10 Mg Tablet) 10 mg PO DAILY [facility] Last Admin: 09/16/22 07:57 Dose: 10 mg Ferrous Sulfate (Ferrous Sulfate 324 Mg Tablet.) 324 mg PO BIDWM [facility] Last Admin: 09/16/22 07:57 Dose: 324 mg Finasteride (Finasteride 5 Mg Tablet) 5 mg PO DAILY [facility] Last Admin: 09/16/22 07:57 Dose: 5 mg Glucose (Glucose Gel 15 Gm Gel..Gram.) 15 gm PO Q15M PRN; Protocol PRN Reason: per Hypoglycemia Standing Ord. Vancomycin HCl 500 mg/ Sodium (Chloride) 110 mls @ 110 mls/hr IV Q48H [facility] Last Infusion: 09/15/22 22:30 Dose: Infused Insulin Human Lispro (Insulin Lispro 100 Unit/Ml 3 Ml Vial) 0 unit SUBCUT QIDACHS [facility]; Protocol Last Admin: 09/16/22 11:41 Dose: 4 unit Morphine Sulfate (Morphine Sulfate 4 Mg/Ml Cartridge) 4 mg IVPUSH Q4H PRN; Protocol PRN Reason: Pain, Severe (Pain Scale 7-10) Last Admin: 09/13/22 20:13 Dose: 4 mg Oxycodone HCl (Oxycodone Hcl Immed Release 5 Mg Tablet) 5 mg PO Q4H PRN PRN Reason: Pain, Severe (Pain Scale 7-10) Last Admin: 09/15/22 16:53 Dose: 5 mg Pharmacy Consult (Consult Rx Vancomycin Dosing) 1 each MISCELLANE DAILY PRN PRN Reason: Consult order Sodium Bicarbonate (Sodium Bicarbonate 650 Mg Tablet) 650 mg PO TID [facility] Last Admin: 09/16/22 07:57 Dose: 650 mg Sodium Chloride (0.9 % Sodium Chloride Flush 3 Ml Syringe) 3 ml IVFLUSH QSHIFT [facility] Last Admin: 09/16/22 08:04 Dose: 3 ml Vitamin D (Cholecalciferol (Vitamin D3) 25 Mcg Tablet) 50 mcg PO DAILY [facility] Last Admin: 09/16/22 07:56 Dose: 50 mcg Home Medications Medication Instructions Recorded Confirmed Last Taken Type simvastatin 40 mg tablet 40 mg PO BEDTIME 03/17/20 09/03/22 09/02/22 History blood sugar diagnostic (OneTouch #10 ea 11/11/20 09/03/22 09/03/22 History Verio test strips) pantoprazole 20 mg tablet,delayed 20 mg PO DAILY 11/11/20 09/03/22 09/03/22 History release cholecalciferol (vitamin D3) 50 50 mcg PO DAILY 07/11/22 09/03/22 09/03/22 History mcg (2,000 unit) tablet empagliflozin 10 mg tablet 10 mg PO DAILY 07/11/22 09/03/22 09/03/22 History (Jardiance) Physical Exam Vital Signs: Last Vital Signs Temp 97.5 F 09/16/22 07:42 Pulse 84 09/16/22 07:42 Resp 16 09/16/22 07:42 BP 109/56 L 09/16/22 07:42 Pulse Ox 94 09/16/22 07:42 O2 Del Method Room Air 09/16/22 07:42 O2 Flow Rate 2 09/13/22 11:05 Oxygen Flow Rate 2 09/06/22 10:00 BMI result Body Mass Index 28.8 Comfortable Neck is supple Lung: Air entry equal Heart: S1,S2, normal. No rub Abd: Soft. BS + NS : Alert.No asterexis Ext: No edema Results Lab Results 09/16/22 06:30 09/16/22 06:30 Lab results: Chemistry 09/14/22 09/15/22 09/16/22 05:26 07:06 06:30 Sodium 139 137 Potassium 4.3 D 4.0 Carbon Dioxide 23 23 BUN 51 H 65 H Creatinine 2.85 H 3.16 H 3.32 H Calcium 9.0 9.2 Hematology 09/14/22 09/16/22 05:26 06:30 WBC 16.4 H 11.8 H Hgb 10.2 L 9.6 L Plt Count 261 237 Assessment and Plan (1) Acute kidney injury superimposed on CKD: Status: Acute Plan Elderly man with acute kidney injury superimposed on chronic kidney disease. Underlying chronic kidney disease with a baseline creatinine of 2.5 mg/dL. 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 Superimposed acute kidney injury most likely due to hypoperfusion in the setting of diarrhea causing dehydration. However tubular injury from vanco toxicity should be considered. Obstructive uropathy seems unlikely. Other possibilities including glomerular nephritis or interstitial nephritis should be considered although seems unlikely at this time. Recommendation Check urine for sodium, creatinine, protein. Keep intake more than output. Continue to treat diarrhea/antimotility agents. Continue to avoid nephrotoxic agents and hypotension. Watch vanco levels and adjust dose accordingly. At present no indication for dialysis. Further workup will be based on the outcome of the above basic investigations. We will follow along with the team. Time Spent With Patient Time: Total time managing care of this patient today ____ minutes. Procedures Date of Service Date of Service: 09/18/22
[2022-09-16 15:39] VITALS: BP 110/57; PULSE 87; RESP 19; TEMP 36.1; O2SAT 94
[2022-09-16 20:00] VITALS: BP 135/80; PULSE 99; RESP 18; TEMP 36.4; O2SAT 94
[2022-09-16] MEDS: Atorvastatin Calcium 20 MG TABLET PO (20:31)
[2022-09-16] MEDS: Albumin Human 25 % 100 ML IV (20:31)
[2022-09-17] VITALS (7 sets, daily range): BP systolic 120–167; BP diastolic 60–83; PULSE 68–118; RESP 16–19; TEMP 36–36.8; O2SAT 90–95
[2022-09-17] MEDS: Albumin Human 25 % 100 ML IV ×3 (00:55→13:18)
[2022-09-17 07:24] LABS: Creatinine Clr Calc Pharmacy 20.5; Estimated Glomerular Filt Rate 19
[2022-09-17] MEDS: 0.9 % Sodium Chloride Flush 3 ML SYRINGE IVFLUSH ×4 (07:38→23:36)
[2022-09-17] MEDS: Empagliflozin 10 MG TABLET PO (07:39)
[2022-09-17] MEDS: Ferrous Sulfate 324 MG TABLET.DR PO ×2 (07:39→16:39)
[2022-09-17] MEDS: Sodium Bicarbonate 650 MG TABLET PO ×3 (07:39→21:01)
[2022-09-17] MEDS: Cholecalciferol (Vitamin D3) 25 MCG TABLET 50 MCG PO (07:39)
[2022-09-17] MEDS: Insulin Lispro 100 UNIT/ML 3 ML VIAL SUBCUT ×4 (07:39→21:01)
[2022-09-17] MEDS: Finasteride 5 MG TABLET PO (07:40)
[2022-09-17] MEDS: Clotrimazole 1 % Cream 15 GM TUBE 1 APPL TOPICAL ×2 (07:41→21:04)
--- NOTE | 2022-09-17 09:52 | HO.VASCPN ---
Subjective Subjective Date of Service: 09/17/22 Patient reports: no new complaints and feels better Interval history: Patient seen and examined. No significant events over the past weekend. No significant pain. Resting and in fairly good spirits. Concerned about his overall for status. Physical Exam Vital Signs: Vital Signs: Last Vital Signs Temp 97.4 F 09/17/22 07:09 Pulse 91 09/17/22 07:09 Resp 16 09/17/22 07:09 BP 120/61 09/17/22 07:09 Pulse Ox 94 09/17/22 07:09 O2 Del Method Room Air 09/17/22 07:09 O2 Flow Rate 2 09/13/22 11:05 Oxygen Flow Rate 2 09/06/22 10:00 BMI result Body Mass Index 28.8 Const: General: cooperative, healthy appearing and no acute distress Orientation/consciousness: oriented to person, oriented to place and oriented to time HEENT: Head: Yes normal to inspection Neck: Carotids: no bruits Chest: Chest palpation & inspection: normal inspection of the chest Resp: Effort & Inspection: normal respiratory effort and able to speak in complete sentences Auscultation: clear to auscultation bilaterally Cardio: Rate: regular rate Heart sounds: S1 normal heart sound present and S2 normal heart sound present GI: Inspection: Yes normal to inspection Skin: Other: Incision line healing well. Medial aspect slightly boggy but in general excellent take of flap. Greater than 90% flap take. Some mild surrounding cellulitis. General skin exam: no rashes or lesions noted Wounds: no wounds Neuro: General: oriented to person, oriented to place, oriented to time and CN's II-XI intact bilaterally Extrem: General: Yes normal to inspection, Yes full ROM and Yes no clubbing, cyanosis or edema Psych: Appearance: grossly normal and well kempt Speech and movement: Normal speech and movement present Affect: normal affect Progress Note: A&P Assessment and plan (1) Status post transmetatarsal amputation of right foot: Status: Acute Assessment and Plan: In short doing extremely well status post transmetatarsal amputation. Would like at least 10 days of p.o. antibiotics for the surrounding cellulitis. I will write wound care instructions for visiting nurses. The patient can see me as an outpatient in approximately 2 weeks time for suture and staple removal. Patient is stable from my perspective and should be able to make his cancer appointment on 09/20 at [facility]. Once again stable from my perspective for discharge. Thank you for allowing me to participate in his care. Time Spent With Patient Time: Total time managing care of this patient today ____ minutes. Procedures Date of Service Date of Service: 09/17/22 Quality Stroke Does the patient have a stroke diagnosis?: No VTE Prior VTE?: No VTE Risk Level:: Medical - moderate - high VTE Device Contraindication: Treatment Not Indicated VTE Drug Contraindication: N/A - Med Ordered
--- NOTE | 2022-09-17 11:17 | MHC.CLN ---
F/U DIET=DIABETIC 2200 KCALS. INTAKE VARIABLE, USUALLY 50-100%. DIABETIC ULCER TO LEFT HEEL. STAGE I TO COCCYX. ELEVATED BUN AND Cr DUE TO CKD. PER NEPHROLOGY, NO DIALYSIS AT THIS TIME. FOLLOW FOR INTAKE, LABS, AND WOUND HEALING. RD TO FOLLOW WEEKLY.
--- NOTE | 2022-09-17 11:48 | PM.UROCN ---
History of Present Illness Consult details Consult date: 09/17/22 Narrative: Pt admitted due to nonhealing ulcer, s/p vascular surgery, daughter and at bedside Known to have bladder cancer followed by urology h/o CKD, seen by Nephrology likely acute kidney injury on top of CKD no new issues Review of Systems Review of Systems: 10 point ROS negative other than noted in HPI [facility] Past Medical History Medical History (Updated 09/19/22 @ 12:24 by George Youngblood MD) Acute osteomyelitis Back pain CKD (chronic kidney disease) stage 3, GFR 30-59 ml/min Congestive heart failure with LV diastolic dysfunction, NYHA class 3 Decubitus ulcer, heel Diabetes mellitus Gram-negative bacteremia H/O cardiac pacemaker Heart block History of COVID-19 Hyperlipidemia Hypertension Infection of right foot Iron deficiency anemia PAD (peripheral artery disease) Type 2 diabetes mellitus with unspecified complications Ulcer of left heel Ulcer of right 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 Urinary retention Family History Family History Brother Testicular cancer Family history: reviewed and not pertinent Surgical History Surgical History History of atherectomy History of back surgery History of esophagogastroduodenoscopy History of left hip replacement Hx of cataract extraction Hx of colonoscopy Social History Social History Household Members: Spouse Household Members Other:: 2 Housing: House Do you presently have visiting nurse or other home services: Yes Alcohol intake: former Patient Tobacco Use Status: Former Tobacco user Quit Date: 15 years Tobacco use type: Cigarette Use of substances other than those prescribed or required for medical reasons: No Currently Displaying Signs/Symptoms of Drug Intoxication Withdrawal: No Have you been hit, kicked, punched, or otherwise hurt by someone within the past year? If so, by whom?: No Do you feel safe in your current relationship?: No Is there a partner from a previous relationship who is making you feel unsafe now?: No Are you made to feel afraid or neglected: No Are you DNR?: No Advance Directives: Yes Advance Directives on File: Yes Advance Directives Date on File: 07/12/22 Do you have thoughts of harming others: None Do you have a plan to hurt others: No Plan Recently lost weight without trying: No Eating poorly because of decreased appetite: No Nutrition Risks: No Nutritional Risk Poor oral hygiene: No service: No Current occupational status: retired Meds Allergies Allergy/AdvReac Type Severity Reaction Status Date / Time lisinopril [LISINOPRIL] Allergy Severe ANGIOEDEMA Verified 08/30/22 10:56 Active Medications: Current Medications Al Hydroxide/Mg Hydroxide (Magnesium Hydrox/Alum Hydrox 30 Ml Oral.Susp) 30 ml PO Q4H PRN PRN Reason: Dyspepsia Atorvastatin Calcium (Atorvastatin Calcium 20 Mg Tablet) 20 mg PO BEDTIME [facility] Last Admin: 09/16/22 20:31 Dose: 20 mg Clotrimazole (Clotrimazole 1 % Cream 15 Gm Tube) 1 appl TOPICAL BID [facility]; Protocol Last Admin: 09/17/22 07:41 Dose: 1 appl Dextrose (Dextrose 50 % 25 Gm/50 Ml Syringe) 25 gm IVPUSH Q15M PRN; Protocol PRN Reason: per Hypoglycemia Standing Ord. Doxycycline Monohydrate (Doxycycline Monohydrate 100 Mg Capsule) 100 mg PO Q12H [facility] Last Admin: 09/17/22 10:30 Dose: 100 mg Empagliflozin (Empagliflozin 10 Mg Tablet) 10 mg PO DAILY [facility] Last Admin: 09/17/22 07:39 Dose: 10 mg Ferrous Sulfate (Ferrous Sulfate 324 Mg Tablet.Dr) 324 mg PO BIDWM [facility] Last Admin: 09/17/22 07:39 Dose: 324 mg Finasteride (Finasteride 5 Mg Tablet) 5 mg PO DAILY [facility] Last Admin: 09/17/22 07:40 Dose: 5 mg Glucose (Glucose Gel 15 Gm Gel..Gram.) 15 gm PO Q15M PRN; Protocol PRN Reason: per Hypoglycemia Standing Ord. Albumin Human (Kedbumin 25 %) 100 mls @ 100 mls/hr IV Q6H [facility] Stop: 09/17/22 14:14 Last Infusion: 09/17/22 07:40 Dose: Infused Insulin Human Lispro (Insulin Lispro 100 Unit/Ml 3 Ml Vial) 0 unit SUBCUT QIDACHS [facility]; Protocol Last Admin: 09/17/22 11:32 Dose: 6 unit Loperamide HCl (Loperamide Hcl 2 Mg Capsule) 2 mg PO Q4H PRN PRN Reason: Diarrhea Morphine Sulfate (Morphine Sulfate 4 Mg/Ml Cartridge) 4 mg IVPUSH Q4H PRN; Protocol PRN Reason: Pain, Severe (Pain Scale 7-10) Last Admin: 09/13/22 20:13 Dose: 4 mg Oxycodone HCl (Oxycodone Hcl Immed Release 5 Mg Tablet) 5 mg PO Q4H PRN PRN Reason: Pain, Severe (Pain Scale 7-10) Last Admin: 09/15/22 16:53 Dose: 5 mg Sodium Bicarbonate (Sodium Bicarbonate 650 Mg Tablet) 650 mg PO TID [facility] Last Admin: 09/17/22 07:39 Dose: 650 mg Sodium Chloride (0.9 % Sodium Chloride Flush 3 Ml Syringe) 3 ml IVFLUSH QSHIFT [facility] Last Admin: 09/17/22 07:38 Dose: 3 ml Vitamin D (Cholecalciferol (Vitamin D3) 25 Mcg Tablet) 50 mcg PO DAILY [facility] Last Admin: 09/17/22 07:39 Dose: 50 mcg Home Medications Medication Instructions Recorded Confirmed Last Taken Type simvastatin 40 mg tablet 40 mg PO BEDTIME 03/17/20 09/03/22 09/02/22 History blood sugar diagnostic (OneTouch #10 ea 11/11/20 09/03/22 09/03/22 History Verio test strips) pantoprazole 20 mg tablet,delayed 20 mg PO DAILY 11/11/20 09/03/22 09/03/22 History release cholecalciferol (vitamin D3) 50 50 mcg PO DAILY 07/11/22 09/03/22 09/03/22 History mcg (2,000 unit) tablet empagliflozin 10 mg tablet 10 mg PO DAILY 07/11/22 09/03/22 09/03/22 History (Jardiance) Physical Exam Vital Signs: Vital Signs: Last Vital Signs Temp 97.4 F 09/17/22 07:09 Pulse 91 09/17/22 07:09 Resp 16 09/17/22 07:09 BP 120/61 09/17/22 07:09 Pulse Ox 94 09/17/22 07:09 O2 Del Method Room Air 09/17/22 07:09 O2 Flow Rate 2 09/13/22 11:05 Oxygen Flow Rate 2 09/06/22 10:00 BMI result Body Mass Index 28.8 Const: General: no acute distress and well developed Orientation/consciousness: oriented to person HEENT: Head: Yes normocephalic and Yes atraumatic Eyes: Conjunctivae: conjunctivae normal Neck: Neck: Yes normal visual inspection Chest: Chest palpation & inspection: normal inspection of the chest Resp: Effort & Inspection: normal respiratory effort Cardio: Rate: regular rate GI: Inspection: Yes normal to inspection Neuro: General: oriented to person Psych: Appearance: grossly normal Affect: normal affect Results Labs 09/16/22 06:30 09/17/22 06:35 Labs: Abnormal lab results 09/16/22 09/16/22 09/17/22 Range/Units 15:46 20:20 06:35 Creatinine 3.10 H (0.5-1.4) mg/dL POC Glucose 301 H 309 H (60-115) mg/dL 09/17/22 09/17/22 Range/Units 07:06 11:03 Creatinine (0.5-1.4) mg/dL POC Glucose 258 H 255 H (60-115) mg/dL BMP 09/17/22 06:35 Creatinine 3.10 H All other labs normal. Imaging Abdomen CT scan report/results: report reviewed and image reviewed CT scan - pelvis: report reviewed and image reviewed Additional studies: Date of Service: 08/06/22 EXAMINATION: CT ABDOMEN AND PELVIS WITHOUT CONTRAST? CLINICAL INFORMATION: Gross hematuria? COMPARISON: Previous renal ultrasound most recent 08/01/[address] of the abdomen and pelvis May 2020 TECHNIQUE: Multidetector volumetric imaging was performed from the superior aspect of the liver through the pubic symphysis. Sagittal and coronal reformatted images were obtained on the technologist's workstation.? This CT examination was performed using dose optimization techniques as appropriate, variously including the following: *Automated exposure control *Adjustment of mA and/or kV according to patient size (this includes techniques or standardized protocols for targeted exams where dose is matched to indication/reason for exam; i.e. extremities or head) *Use of iterative reconstruction technique DLP: 753 mGy-cm FINDINGS: LUNG BASES: Small bilateral pleural effusions. Trace pericardial effusion. Coronary artery calcification and pacemaker lead. LIVER, GALLBLADDER, AND BILIARY TREE: Cirrhotic liver. No focal liver lesion. Dilated gallbladder. No gallstone seen by CT. No biliary duct dilatation. Small amount of ascites. PANCREAS: Unremarkable.? SPLEEN: Unremarkable.? ADRENAL GLANDS: Unremarkable.? KIDNEYS AND URETERS: Bilateral renal cysts. No imaging follow-up recommended. Mild left hydronephrosis. The left ureter does not appear dilated and there may be a left UPJ obstruction. This is similar to previous exam. There is a left mid pole renal stone measuring 2 x 4 mm. BLADDER: Cao catheter in the bladder. The bladder is empty. Question areas of focal bladder wall thickening superiorly and along the right lateral bladder wall. GASTROINTESTINAL TRACT: Severe constipation. The very distal colon and rectum are not included in the [id number]. There is question of mild wall thickening of the distal colon and stranding of the fat in the presacral space questionable for stercoral colitis. Diverticulosis of the colon. No evidence of diverticulitis. Dilated fluid-filled small bowel. No transition zone seen in appearance is questionable for an ileus. Small bowel is unremarkable. There may be mild wall thickening of the stomach. The appendix is not seen. ABDOMINAL WALL: Umbilical hernia containing fat.? LYMPH NODES: Normal. VASCULAR: Atherosclerotic disease. No aneurysm. PELVIC VISCERA: Unremarkable.? OSSEOUS STRUCTURES: Severe degenerative changes of the spine. Loss of height of the anterior superior endplate of the L1 vertebral body questionable for mild compression fracture versus Schmorl's node. Surgical hardware in between the L3-L4 spinous processes. Left hip replacement. Arthritis at the right hip joint. CT/CT abdomen pelvis wo IV con IMPRESSION: Cirrhotic-appearing liver. Small amount of ascites. Dilated gallbladder. No gallstone seen by CT. No biliary duct dilatation. ? Bilateral renal cysts. No imaging follow-up recommended. Left hydronephrosis and UPJ obstruction. Left renal stone. Cao catheter in the bladder. The bladder is empty. Question focal bladder wall thickening along the dome and right lateral bladder wall. ? ? Dilated fluid-filled proximal small bowel probably representing an ileus. Severe constipation and question stercoral colitis. Assessment and Plan (1) DEON (acute kidney injury): Status: Acute (2) CKD (chronic kidney disease): Status: Acute (3) Bladder cancer: Status: Acute Plan bladder cancer h/o CKD, seen by Nephrology likely acute kidney injury on top of CKD no new issues The patient has scheduled urology follow up with his Urologist Time Spent With Patient Time: Total time managing care of this patient today ____ minutes. Procedures Date of Service Date of Service: 09/19/22
--- NOTE | 2022-09-17 13:16 | W.MHC.F2F ---
Service Date Service Date: 09/17/22 Encounter Date of encounter: 09/17/22 Encounter: Foot cellulitis status post transmet amputation patient, CKD Reasons for Services Signs and symptoms assessed: Monitor wound area for any sign of infection, any fever Reason for fdc: wound care, medication management, medication treatment and teach disease management Homebound: Leaving the home is medically contraindicated at this time without the asist of a device and/or another person due th the listed conditions above and below. Certification: Based on the above findings, I certify that this patient is confined to the home and needs intermittent fdc care, physical therapy and/or speech therapy, or continues to need occupational therapy. The patient is under my care, and I have initiated the establishment of the plan of care. The patient will be followed by a physician who will periodically review the plan of care. Time Spent With Patient Time: Total time managing care of this patient today ____ minutes.
--- NOTE | 2022-09-17 15:39 | HO.PM.IMPN ---
Subjective Subjective Date of Service: 09/17/22 Interval History: Right great toe amputation/cellulitis Review of Systems s/p transmet amp on 09/13. ?no new c/o. Physical Exam Vital Signs: Vital Signs: Last Vital Signs Temp 96.9 F 09/17/22 12:00 Pulse 93 09/17/22 12:00 Resp 18 09/17/22 12:00 BP 133/63 09/17/22 12:00 Pulse Ox 93 09/17/22 12:00 O2 Del Method Room Air 09/17/22 12:00 O2 Flow Rate 2 09/13/22 11:05 Oxygen Flow Rate 2 09/06/22 10:00 BMI result Body Mass Index 28.8 Awake, interactive, not in distress Cvs: RRR, no JVP, no lower extremity edema chest : air entry fair, no crackles or wheezes or rhonchi GI:? soft,? Normal bowel sounds, Non tender,bs present. Skin : Warm, Dry, s/p right foot-transmetatarsal amputation wrapped,no discharge or pain. Neurological : Alert & oriented x3, No focal deficit Objective Data Active Medications Al Hydroxide/Mg Hydroxide (Magnesium Hydrox/Alum Hydrox 30 Ml Oral.Susp) 30 ml PO Q4H PRN PRN Reason: Dyspepsia Atorvastatin Calcium (Atorvastatin Calcium 20 Mg Tablet) 20 mg PO BEDTIME [facility] Last Admin: 09/16/22 20:31 Dose: 20 mg Documented By: DANYELL Clotrimazole (Clotrimazole 1 % Cream 15 Gm Tube) 1 appl TOPICAL BID [facility]; Protocol Last Admin: 09/17/22 07:41 Dose: 1 appl Documented By: ELIE Dextrose (Dextrose 50 % 25 Gm/50 Ml Syringe) 25 gm IVPUSH Q15M PRN; Protocol PRN Reason: per Hypoglycemia Standing Ord. Doxycycline Monohydrate (Doxycycline Monohydrate 100 Mg Capsule) 100 mg PO Q12H [facility] Last Admin: 09/17/22 10:30 Dose: 100 mg Documented By: ELIE Empagliflozin (Empagliflozin 10 Mg Tablet) 10 mg PO DAILY [facility] Last Admin: 09/17/22 07:39 Dose: 10 mg Documented By: ELIE Ferrous Sulfate (Ferrous Sulfate 324 Mg Tablet.) 324 mg PO BIDWM [facility] Last Admin: 09/17/22 07:39 Dose: 324 mg Documented By: ELIE Finasteride (Finasteride 5 Mg Tablet) 5 mg PO DAILY [facility] Last Admin: 09/17/22 07:40 Dose: 5 mg Documented By: ELIE Glucose (Glucose Gel 15 Gm Gel..Gram.) 15 gm PO Q15M PRN; Protocol PRN Reason: per Hypoglycemia Standing Ord. Insulin Human Lispro (Insulin Lispro 100 Unit/Ml 3 Ml Vial) 0 unit SUBCUT QIDACHS [facility]; Protocol Last Admin: 09/17/22 11:32 Dose: 6 unit Documented By: ELIE Loperamide HCl (Loperamide Hcl 2 Mg Capsule) 2 mg PO Q4H PRN PRN Reason: Diarrhea Morphine Sulfate (Morphine Sulfate 4 Mg/Ml Cartridge) 4 mg IVPUSH Q4H PRN; Protocol PRN Reason: Pain, Severe (Pain Scale 7-10) Last Admin: 09/13/22 20:13 Dose: 4 mg Documented By: CAPRICE Oxycodone HCl (Oxycodone Hcl Immed Release 5 Mg Tablet) 5 mg PO Q4H PRN PRN Reason: Pain, Severe (Pain Scale 7-10) Last Admin: 09/15/22 16:53 Dose: 5 mg Documented By: DANIELEMA Sodium Bicarbonate (Sodium Bicarbonate 650 Mg Tablet) 650 mg PO TID [facility] Last Admin: 09/17/22 15:33 Dose: 650 mg Documented By: TADEO Sodium Chloride (0.9 % Sodium Chloride Flush 3 Ml Syringe) 3 ml IVFLUSH QSHIFT [facility] Last Admin: 09/17/22 15:33 Dose: 3 ml Documented By: TADEO Vitamin D (Cholecalciferol (Vitamin D3) 25 Mcg Tablet) 50 mcg PO DAILY [facility] Last Admin: 09/17/22 07:39 Dose: 50 mcg Documented By: ELIE Labs 09/16/22 06:30 09/17/22 06:35 Labs: Laboratory Results - last 24 hr 09/16/22 09/16/22 09/17/22 15:46 20:20 06:35 Estim Creat Clear Calc 20.5 Estimated GFR 19 POC Glucose 301 H 309 H 09/17/22 09/17/22 07:06 11:03 Estim Creat Clear Calc Estimated GFR POC Glucose 258 H 255 H Assessment and Plan (1) Diabetes type 2, controlled: Status: Acute (2) Amputation of right great toe: Status: Acute (3) Cellulitis of foot, right: Status: Acute Plan 81 years old male with PMH of CKD, CHF, recent OM, DM, HTN , PAD among others presented to the hospital for elective surgical amputation of right great toe. 1.Right great toe amputation/cellulitis -right TMA? 09/13/2022 -Vanco trough 15 on 09/15/22. toe amputation pathology pending - switch to oral doxycycline.d/w id and vascular-10 days doxy. 2.?Acute on Chronic anemia 2/2 CKD 3 - daily CBC - treat as indicated 3.DMII - acceptable control on current therapies -lispro correctional scale/orals as per outpatient - adjust as indicated 4.Hypertension - acceptable control on current therapies - adjust as indicated ?Requires ongoing hospitalization: pending rehab discharge. Time Spent With Patient Time: Total time managing care of this patient today ____ minutes. Quality Stroke Does the patient have a stroke diagnosis?: No VTE Prior VTE?: No VTE Risk Level:: Medical - moderate - high VTE Device Contraindication: Treatment Not Indicated VTE Drug Contraindication: N/A - Med Ordered
--- NOTE | 2022-09-17 15:52 | PM.IDPN ---
Subjective Subjective Date of Service: 09/17/22 Critical Care Time (minutes): 15 Comment: he has transmetatarsal right per Dr Land he has ended Ertapenem on 08/30 Objective Data Labs 09/16/22 06:30 09/17/22 06:35 Labs: Laboratory Results - last 24 hr 09/16/22 09/16/22 09/17/22 15:46 20:20 06:35 Creatinine 3.10 H Estim Creat Clear Calc 20.5 Estimated GFR 19 POC Glucose 301 H 309 H 09/17/22 09/17/22 07:06 11:03 Creatinine Estim Creat Clear Calc Estimated GFR POC Glucose 258 H 255 H Physical Exam Vital Signs: Vital Signs: Last Vital Signs Temp 96.8 F 09/17/22 15:40 Pulse 95 09/17/22 15:40 Resp 18 09/17/22 15:40 BP 143/67 H 09/17/22 15:40 Pulse Ox 95 09/17/22 15:40 O2 Del Method Room Air 09/17/22 15:40 O2 Flow Rate 2 09/13/22 11:05 Oxygen Flow Rate 2 09/06/22 10:00 BMI result Body Mass Index 28.8 Const: General: cooperative HEENT: Head: Yes normal to inspection Mouth: Normal oral and palatal mucosa present Resp: Effort & Inspection: normal respiratory effort Cardio: Rate: regular rate Rhythm: regular rhythm GI: Inspection: Yes normal to inspection Extrem: Other: transmet right foot Assessment and Plan Assessment and plan (1) Status post transmetatarsal amputation of right foot: Problem details: definitive surgical therapy Status: Acute Assessment and Plan: Po Doxycycline for 10 days (2) Diabetes type 2, controlled: Status: Acute Time Spent With Patient Time: Total time managing care of this patient today ____ minutes.
--- NOTE | 2022-09-17 15:54 | MHC.CM.PN ---
CM MET WITH PTS AND DAUGHTER AT BEDSIDE THEY REPORT THEY THINK THE PT NEEDS STR AND HAS BEEN TO [facility] IN THE PAST PT HAD A PT EVAL AND STR IS BEING RECOMMENDED [facility] WAS SENT THE REFERRAL, HOWEVER THEY HAVE RESPONDED SAYING THEY DO NOT HAVE A CONTRACT WITH CM CALLED PTS , MARIS[facility] [phone] AND INFORMED HER A REFERRAL WAS MADE TO [facility] PTS IS AWARE PT WILL BE HERE UNTIL AT LEAST SATURDAY DUE TO HOLIDAY AND LACK OF AUTH
--- NOTE | 2022-09-17 17:40 | PM.PNNEP ---
Subjective Subjective Date of Service: 09/17/22 Interval history: resting in the bed Family at the bedside Right great toe amputation/cellulitis Physical Exam Vital Signs: Vital Signs: Last Vital Signs Temp 96.8 F 09/17/22 15:40 Pulse 95 09/17/22 15:40 Resp 18 09/17/22 15:40 BP 143/67 H 09/17/22 15:40 Pulse Ox 95 09/17/22 15:40 O2 Del Method Room Air 09/17/22 15:40 O2 Flow Rate 2 09/13/22 11:05 Oxygen Flow Rate 2 09/06/22 10:00 BMI result Body Mass Index 28.8 Const: General: cooperative HEENT: Head: Yes normal to inspection Mouth: Normal oral and palatal mucosa present Resp: Effort & Inspection: normal respiratory effort Cardio: Rate: regular rate Rhythm: regular rhythm GI: Inspection: Yes normal to inspection Extrem: Other: transmet right foot Objective Data Labs 09/16/22 06:30 09/17/22 06:35 Labs: Laboratory Results - last 24 hr 09/16/22 09/17/22 09/17/22 20:20 06:35 07:06 Creatinine 3.10 H Estim Creat Clear Calc 20.5 Estimated GFR 19 POC Glucose 309 H 258 H 09/17/22 09/17/22 11:03 16:13 Creatinine Estim Creat Clear Calc Estimated GFR POC Glucose 255 H 332 H Procedures Date of Service Date of Service: 09/17/22 Assessment & Plan Assessment and plan (1) DEON (acute kidney injury): Status: Acute (2) Hydronephrosis: Status: Acute (3) Acute kidney injury superimposed on CKD: Status: Acute Plan Elderly man with acute kidney injury superimposed on chronic kidney disease.? Underlying chronic kidney disease with a baseline creatinine of 2.5 mg/dL.? 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 Superimposed acute kidney injury most likely due to hypoperfusion/ Tubular injury in the setting of diarrhea . U Na is high / FENA > 2 D. dx : tubular injury from vanco toxicity should be considered.? U Pr/cr is 45/18 < .5 G Obstructive uropathy on the ? L Side - ? Better Func Kidney ? Other possibilities including glomerular nephritis or interstitial nephritis should be considered although seems unlikely at this time.? Recommendation ? Keep intake more than output.? Continue to treat diarrhea/antimotility agents.? Continue to avoid nephrotoxic agents and hypotension.?Ogg Vanco At present no indication for dialysis.? Serology - Pending We will follow along with the team. d/w Medical team D/w pts family at the bed side Time Spent With Patient Time: Total time managing care of this patient today ____ minutes. Progress Note: Quality Stroke Does the patient have a stroke diagnosis?: No
[2022-09-17] MEDS: Atorvastatin Calcium 20 MG TABLET PO (21:01)
[2022-09-18] VITALS (8 sets, daily range): BP systolic 122–160; BP diastolic 60–79; PULSE 76–100; RESP 16–18; TEMP 36–36.6; O2SAT 94–99
[2022-09-18] MEDS: Empagliflozin 10 MG TABLET PO (07:53)
[2022-09-18] MEDS: Ferrous Sulfate 324 MG TABLET.DR PO ×2 (07:53→16:54)
[2022-09-18] MEDS: Insulin Lispro 100 UNIT/ML 3 ML VIAL SUBCUT ×4 (07:53→21:17)
[2022-09-18] MEDS: Finasteride 5 MG TABLET PO (07:53)
[2022-09-18] MEDS: Cholecalciferol (Vitamin D3) 25 MCG TABLET 50 MCG PO (07:53)
[2022-09-18] MEDS: Sodium Bicarbonate 650 MG TABLET PO ×3 (07:53→20:34)
[2022-09-18] MEDS: Clotrimazole 1 % Cream 15 GM TUBE 1 APPL TOPICAL ×2 (07:54→20:34)
[2022-09-18] MEDS: 0.9 % Sodium Chloride Flush 3 ML SYRINGE IVFLUSH ×3 (07:54→19:26)
--- NOTE | 2022-09-18 09:25 | HO.PM.IMPN ---
Subjective Subjective Date of Service: 09/18/22 Interval History: f/u on ampuated foot no new issues Physical Exam Vital Signs: Vital Signs: Last Vital Signs Temp 97.3 F 09/18/22 07:14 Pulse 96 09/18/22 07:14 Resp 18 09/18/22 07:14 BP 123/60 09/18/22 07:14 Pulse Ox 94 09/18/22 07:14 O2 Del Method Room Air 09/18/22 07:14 O2 Flow Rate 2 09/13/22 11:05 Oxygen Flow Rate 2 09/06/22 10:00 BMI result Body Mass Index 28.8 Const: Other: General: AO X 3, no acute distress Resp: CTA bilateral CVS: S1,S2,RRR GI: +BS, NT, no distention Skin: dressing intact Neuro: motor grossly intact Psych: appropriate affect Objective Data Active Medications Al Hydroxide/Mg Hydroxide (Magnesium Hydrox/Alum Hydrox 30 Ml Oral.Susp) 30 ml PO Q4H PRN PRN Reason: Dyspepsia Atorvastatin Calcium (Atorvastatin Calcium 20 Mg Tablet) 20 mg PO BEDTIME [facility] Last Admin: 09/17/22 21:01 Dose: 20 mg Documented By: RITA Clotrimazole (Clotrimazole 1 % Cream 15 Gm Tube) 1 appl TOPICAL BID JIL; Protocol Last Admin: 09/18/22 07:54 Dose: 1 appl Documented By: MICHELLE Dextrose (Dextrose 50 % 25 Gm/50 Ml Syringe) 25 gm IVPUSH Q15M PRN; Protocol PRN Reason: per Hypoglycemia Standing Ord. Doxycycline Monohydrate (Doxycycline Monohydrate 100 Mg Capsule) 100 mg PO Q12H [facility] Last Admin: 09/17/22 21:01 Dose: 100 mg Documented By: RITA Empagliflozin (Empagliflozin 10 Mg Tablet) 10 mg PO DAILY [facility] Last Admin: 09/18/22 07:53 Dose: 10 mg Documented By: MICHELLE Ferrous Sulfate (Ferrous Sulfate 324 Mg Tablet.) 324 mg PO BIDWM [facility] Last Admin: 09/18/22 07:53 Dose: 324 mg Documented By: MICHELLE Finasteride (Finasteride 5 Mg Tablet) 5 mg PO DAILY [facility] Last Admin: 09/18/22 07:53 Dose: 5 mg Documented By: MICHELLE Glucose (Glucose Gel 15 Gm Gel..Gram.) 15 gm PO Q15M PRN; Protocol PRN Reason: per Hypoglycemia Standing Ord. Insulin Human Lispro (Insulin Lispro 100 Unit/Ml 3 Ml Vial) 0 unit SUBCUT QIDACHS [facility]; Protocol Last Admin: 09/18/22 07:53 Dose: 4 unit Documented By: MICHELLE Loperamide HCl (Loperamide Hcl 2 Mg Capsule) 2 mg PO Q4H PRN PRN Reason: Diarrhea Morphine Sulfate (Morphine Sulfate 4 Mg/Ml Cartridge) 4 mg IVPUSH Q4H PRN; Protocol PRN Reason: Pain, Severe (Pain Scale 7-10) Last Admin: 09/13/22 20:13 Dose: 4 mg Documented By: CAPRICE Oxycodone HCl (Oxycodone Hcl Immed Release 5 Mg Tablet) 5 mg PO Q4H PRN PRN Reason: Pain, Severe (Pain Scale 7-10) Last Admin: 09/15/22 16:53 Dose: 5 mg Documented By: COTEMA Sodium Bicarbonate (Sodium Bicarbonate 650 Mg Tablet) 650 mg PO TID [facility] Last Admin: 09/18/22 07:53 Dose: 650 mg Documented By: MICHELLE Sodium Chloride (0.9 % Sodium Chloride Flush 3 Ml Syringe) 3 ml IVFLUSH QSHIFT [facility] Last Admin: 09/18/22 07:54 Dose: 3 ml Documented By: MICHELLE Vitamin D (Cholecalciferol (Vitamin D3) 25 Mcg Tablet) 50 mcg PO DAILY [facility] Last Admin: 09/18/22 07:53 Dose: 50 mcg Documented By: MICHELLE Labs 09/16/22 06:30 09/17/22 06:35 Labs: Laboratory Results - last 24 hr 09/17/22 09/17/22 09/17/22 11:03 16:13 20:41 POC Glucose 255 H 332 H 300 H 09/18/22 07:21 POC Glucose 245 H Assessment and Plan (1) Diabetes type 2, controlled: Status: Acute (2) Amputation of right great toe: Status: Acute (3) Cellulitis of foot, right: Status: Acute Plan 81 years old male with PMH of CKD, CHF, recent OM, DM, HTN , PAD among others admitted on 09/03/22 to Vascular surgery service by Dr. Land and underwent elective Right great toe ampuation due to Nonhealing diabetic foot ulcer, followed by Right TMA on 09/13/22, hospital course complicated by anemia, renal failure Right great to diabetic foot ulcer s/p right toe ampuation on 09/03, and was not healing well with possibl infection so underwent TMA on 09/13/22 and site still have cellulitis around wound and ID is recommending Doxy x 10 days. Acute on Chronic anemia 2/2 CKD 3--Stable DMII - acceptable control on current therapies -lispro correctional scale/orals as per outpatient - adjust as indicated Hypertension--controlled on current meds. ?Requires ongoing hospitalization: pending rehab discharge. Time Spent With Patient Time: Total time managing care of this patient today ____ minutes. Quality Stroke Does the patient have a stroke diagnosis?: No VTE Prior VTE?: No VTE Risk Level:: Medical - moderate - high VTE Device Contraindication: Treatment Not Indicated VTE Drug Contraindication: N/A - Med Ordered
--- NOTE | 2022-09-18 14:34 | PM.PNNEP ---
Subjective Subjective Date of Service: 09/18/22 Interval history: f/u on AKA on CKD no new issues Physical Exam Vital Signs: Vital Signs: Last Vital Signs Temp 96.9 F 09/18/22 12:00 Pulse 76 09/18/22 12:00 Resp 16 09/18/22 12:00 BP 131/68 09/18/22 12:00 Pulse Ox 95 09/18/22 12:00 O2 Del Method Room Air 09/18/22 12:00 O2 Flow Rate 2 09/13/22 11:05 Oxygen Flow Rate 2 09/06/22 10:00 BMI result Body Mass Index 28.8 Const: Other: General: AO X 3, no acute distress Resp: CTA bilateral CVS: S1,S2,RRR GI: +BS, NT, no distention Skin: dressing intact Neuro: motor grossly intact Psych: appropriate affect Objective Data Labs 09/16/22 06:30 09/17/22 06:35 Labs: Laboratory Results - last 24 hr 09/17/22 09/17/22 09/18/22 16:13 20:41 07:21 POC Glucose 332 H 300 H 245 H 09/18/22 11:19 POC Glucose 306 H Procedures Date of Service Date of Service: 09/18/22 Assessment & Plan Assessment and plan (1) Acute kidney injury superimposed on CKD: Status: Acute Plan Elderly man with acute kidney injury superimposed on chronic kidney disease. Underlying chronic kidney disease with a baseline creatinine of 2.5 mg/dL. 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 Superimposed acute kidney injury most likely due to hypoperfusion in the setting of diarrhea causing dehydration. However tubular injury from vanco toxicity should be considered. Obstructive uropathy seems unlikely. Other possibilities including glomerular nephritis or interstitial nephritis should be considered although seems unlikely at this time. Marginal improvement in creatinine down to 3.1. No new labs today. Recommendation Keep intake more than output. Continue to treat diarrhea/antimotility agents. Continue to avoid nephrotoxic agents and hypotension. At present no indication for dialysis. Further workup will be based on the outcome of the above basic investigations. We will follow along with the team. Time Spent With Patient Time: Total time managing care of this patient today ____ minutes. Progress Note: Quality Stroke Does the patient have a stroke diagnosis?: No
[2022-09-18] MEDS: oxyCODONE HCl Immed Release 5 MG TABLET PO (19:26)
[2022-09-18] MEDS: Atorvastatin Calcium 20 MG TABLET PO (20:34)
[2022-09-19 03:16] VITALS: BP 134/71; PULSE 100; RESP 16; TEMP 36.4; O2SAT 94
[2022-09-19 07:43] VITALS: BP 118/61; PULSE 98; RESP 16; TEMP 36.8; O2SAT 94
[2022-09-19] MEDS: Insulin Lispro 100 UNIT/ML 3 ML VIAL SUBCUT ×2 (08:30→13:05)
[2022-09-19] MEDS: Ferrous Sulfate 324 MG TABLET.DR PO (08:31)
[2022-09-19] MEDS: Empagliflozin 10 MG TABLET PO (08:31)
[2022-09-19] MEDS: Sodium Bicarbonate 650 MG TABLET PO ×2 (08:31→15:22)
[2022-09-19] MEDS: Cholecalciferol (Vitamin D3) 25 MCG TABLET 50 MCG PO (08:32)
[2022-09-19] MEDS: Finasteride 5 MG TABLET PO (08:32)
[2022-09-19] MEDS: 0.9 % Sodium Chloride Flush 3 ML SYRINGE IVFLUSH ×2 (08:34→15:24)
[2022-09-19] MEDS: Clotrimazole 1 % Cream 15 GM TUBE 1 APPL TOPICAL (08:35)
--- NOTE | 2022-09-19 08:45 | HO.PM.IMPN ---
Subjective Subjective Date of Service: 09/19/22 Interval History: f/u on DEON on CKD no new issues Physical Exam Vital Signs: Vital Signs: Last Vital Signs Temp 98.3 F 09/19/22 07:43 Pulse 98 09/19/22 07:43 Resp 16 09/19/22 07:43 BP 118/61 09/19/22 07:43 Pulse Ox 94 09/19/22 07:43 O2 Del Method Room Air 09/19/22 07:43 O2 Flow Rate 2 09/18/22 19:59 Oxygen Flow Rate 2 09/06/22 10:00 BMI result Body Mass Index 28.8 Const: Other: General: AO X 3, no acute distress Resp: CTA bilateral CVS: S1,S2,RRR GI: +BS, NT, no distention Skin: dressing intact Neuro: motor grossly intact Psych: appropriate affect Objective Data Active Medications Al Hydroxide/Mg Hydroxide (Magnesium Hydrox/Alum Hydrox 30 Ml Oral.Susp) 30 ml PO Q4H PRN PRN Reason: Dyspepsia Atorvastatin Calcium (Atorvastatin Calcium 20 Mg Tablet) 20 mg PO BEDTIME [facility] Last Admin: 09/18/22 20:34 Dose: 20 mg Documented By: DANYELL Clotrimazole (Clotrimazole 1 % Cream 15 Gm Tube) 1 appl TOPICAL BID [facility]; Protocol Last Admin: 09/19/22 08:35 Dose: 1 appl Documented By: MICHAELA Dextrose (Dextrose 50 % 25 Gm/50 Ml Syringe) 25 gm IVPUSH Q15M PRN; Protocol PRN Reason: per Hypoglycemia Standing Ord. Doxycycline Monohydrate (Doxycycline Monohydrate 100 Mg Capsule) 100 mg PO Q12H [facility] Last Admin: 09/18/22 21:17 Dose: 100 mg Documented By: DANYELL Empagliflozin (Empagliflozin 10 Mg Tablet) 10 mg PO DAILY [facility] Last Admin: 09/19/22 08:31 Dose: 10 mg Documented By: MICHAELA Ferrous Sulfate (Ferrous Sulfate 324 Mg Tablet.) 324 mg PO BIDWM [facility] Last Admin: 09/19/22 08:31 Dose: 324 mg Documented By: MICHAELA Finasteride (Finasteride 5 Mg Tablet) 5 mg PO DAILY [facility] Last Admin: 09/19/22 08:32 Dose: 5 mg Documented By: MICHAELA Glucose (Glucose Gel 15 Gm Gel..Gram.) 15 gm PO Q15M PRN; Protocol PRN Reason: per Hypoglycemia Standing Ord. Insulin Human Lispro (Insulin Lispro 100 Unit/Ml 3 Ml Vial) 0 unit SUBCUT QIDACHS [facility]; Protocol Last Admin: 09/19/22 08:30 Dose: 4 unit Documented By: MICHAELA Loperamide HCl (Loperamide Hcl 2 Mg Capsule) 2 mg PO Q4H PRN PRN Reason: Diarrhea Oxycodone HCl (Oxycodone Hcl Immed Release 5 Mg Tablet) 5 mg PO Q4H PRN PRN Reason: Pain, Severe (Pain Scale 7-10) Last Admin: 09/18/22 19:26 Dose: 5 mg Documented By: DANYELL Sodium Bicarbonate (Sodium Bicarbonate 650 Mg Tablet) 650 mg PO TID [facility] Last Admin: 09/19/22 08:31 Dose: 650 mg Documented By: MICHAELA Sodium Chloride (0.9 % Sodium Chloride Flush 3 Ml Syringe) 3 ml IVFLUSH QSHIFT [facility] Last Admin: 09/19/22 08:34 Dose: 3 ml Documented By: MICHAELA Vitamin D (Cholecalciferol (Vitamin D3) 25 Mcg Tablet) 50 mcg PO DAILY [facility] Last Admin: 09/19/22 08:32 Dose: 50 mcg Documented By: MICHAELA Labs 09/16/22 06:30 09/17/22 06:35 Labs: Laboratory Results - last 24 hr 09/18/22 09/18/22 09/18/22 11:19 16:18 20:52 POC Glucose 306 H 331 H 290 H 09/19/22 07:20 POC Glucose 248 H Assessment and Plan (1) Diabetes type 2, controlled: Status: Acute (2) Amputation of right great toe: Status: Acute (3) Cellulitis of foot, right: Status: Acute Plan 81 years old male with PMH of CKD, CHF, recent OM, DM, HTN , PAD among others admitted on 09/03/22 to Vascular surgery service by Dr. Land and underwent elective Right great toe ampuation due to Nonhealing diabetic foot ulcer, followed by Right TMA on 09/13/22, hospital course complicated by anemia, renal failure Right great toe diabetic foot ulcer s/p right toe ampuation on 09/03, and was not healing well with possible infection so underwent right TMA on 09/13/22 and site still have cellulitis around wound and ID is recommending Doxy x 10 days. Acute on Chronic anemia 2/2 CKD 3--Stable DEON on CKD--stable DMII - acceptable control on current therapies -lispro correctional scale/orals as per outpatient - adjust as indicated Hypertension--controlled on current meds. ?Requires ongoing hospitalization: pending rehab discharge will discharge when has bed . Time Spent With Patient Time: Total time managing care of this patient today ____ minutes. Quality Stroke Does the patient have a stroke diagnosis?: No VTE Prior VTE?: No VTE Risk Level:: Medical - moderate - high VTE Device Contraindication: Treatment Not Indicated VTE Drug Contraindication: N/A - Med Ordered
--- NOTE | 2022-09-19 10:16 | MHC.CLN ---
NUTRITION CONSULT CONSULT FOR SKIN INTEGRITY. PATIENT WITH STAGE I TO COCCYX; TMA RIGHT FOOT; DM ULCER LEFT HEEL; SKIN FUNGUS GROIN. INTAKE AT MEALS USUALLY 50-100%. DIET=DIABETIC 2200 [address]. NEPHROLOGY FOLLOWING; DEON ON CKD. NO SUPPLEMENT AT THIS TIME DUE TO USUALLY GOOD INTAKE AND MONITORING KIDNEY FX. RD TO FOLLOW WEEKLY.
--- NOTE | 2022-09-19 10:36 | PM.PNNEP ---
Subjective Subjective Date of Service: 09/19/22 Interval history: f/u on DEON on CKD no new issues Physical Exam Vital Signs: Vital Signs: Last Vital Signs Temp 98.3 F 09/19/22 07:43 Pulse 98 09/19/22 07:43 Resp 16 09/19/22 07:43 BP 118/61 09/19/22 07:43 Pulse Ox 94 09/19/22 07:43 O2 Del Method Room Air 09/19/22 07:43 O2 Flow Rate 2 09/18/22 19:59 Oxygen Flow Rate 2 09/06/22 10:00 BMI result Body Mass Index 28.8 Const: Other: General: AO X 3, no acute distress Resp: CTA bilateral CVS: S1,S2,RRR GI: +BS, NT, no distention Skin: dressing intact Neuro: motor grossly intact Psych: appropriate affect Objective Data Labs 09/16/22 06:30 09/17/22 06:35 Labs: Laboratory Results - last 24 hr 09/18/22 09/18/22 09/18/22 11:19 16:18 20:52 POC Glucose 306 H 331 H 290 H 09/19/22 07:20 POC Glucose 248 H Procedures Date of Service Date of Service: 09/19/22 Assessment & Plan Assessment and plan (1) Acute kidney injury superimposed on CKD: Status: Acute Plan Elderly man with acute kidney injury superimposed on chronic kidney disease. Underlying chronic kidney disease with a baseline creatinine of 2.5 mg/dL. 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 Superimposed acute kidney injury most likely due to hypoperfusion in the setting of diarrhea causing dehydration. However tubular injury from vanco toxicity should be considered. Obstructive uropathy seems unlikely. Other possibilities including glomerular nephritis or interstitial nephritis should be considered although seems unlikely at this time. Marginal improvement in creatinine down to 3.1. No new labs today. Recommendation Repeat labs ordered for AM Keep intake more than output. Continue to treat diarrhea/antimotility agents. Continue to avoid nephrotoxic agents and hypotension. . We will follow along with the team after D?c CAn be d/c'd from renal stand point . Time Spent With Patient Time: Total time managing care of this patient today ____ minutes. Progress Note: Quality Stroke Does the patient have a stroke diagnosis?: No
[2022-09-19 12:00] VITALS: BP 120/62; PULSE 76; RESP 16; TEMP 36.6; O2SAT 96
--- NOTE | 2022-09-19 12:51 | MHC.CM.PN ---
Addendum entered by Tigist Mandujano 09/19/22 15:22: DP: PT HAS BEEN MEDICALLY CLEARED FOR DC TO STR AT [facility]. [facility] UPDATED AND IMM DELIVERED. RN AWARE. BLS TRANSPORT BOOKED FOR 4: 30 PM VIA [facility]. Original Note: EMR REVIEWED AND PER MD ROUNDS, PT IS MEDICALLY CLEARED FOR DC PENDING PLACEMENT. BED OFFER FROM [facility], ACCEPTS THIS BED. CENTER WILL SEEK INSURANCE AUTH AND MD AWARE. CM WILL AWAIT AUTH
--- NOTE | 2022-09-19 14:55 | PM.DS ---
DS: Providers Provider Date of Service: 09/19/22 Date of admission: 09/03/22 08:38 Primary care physician: RADHA Bonilla Consults: 09/03/22 12:24 Consult to Hospitalist Routine Comment: Consulting Provider: Hospitalist Reason For Exam: Diabetes management 09/07/22 08:28 Consult to Infectious Diseases Routine Consulting Provider: [facility] Reason for consultation: cellulitis, osteo s/p right great toe 09/16/22 08:20 Consult to Nephrology Routine Consulting Provider: Alan Menard Reason for consultation: Deon vs ckd Has provider been notified: No 09/16/22 19:20 Consult to Urology Routine Consulting Provider: [facility] Reason for consultation: deon? obstructive,recent bladder cancer Has provider been notified: No DS: Diagnosis Discharge Diagnosis (1) DEON (acute kidney injury): Status: Acute (2) CKD (chronic kidney disease): Status: Acute (3) Bladder cancer: Status: Acute DS: Summary Hospital Course Hospital Course: 81 years old male with PMH of CKD, CHF, recent his ot osteomylitis, DM, HTN , PAD among others admitted on 09/03/22 to Vascular surgery service by Dr. Land and underwent elective? Right great toe ampuation due to Nonhealing diabetic foot ulcer,? the amputated toe site did not heal as expected and so it became nessary to perfomr a Transmetatarsal amputation (TMA) on 09/13/22. Other issues during hospitalization have been anemia, acutye on chronic renal fialure, cellulitis at amputation site. Hospital course by problems Right great toe diabetic foot ulcer that fail non operative management including wound care and use of antibiotics. On September 03, he underwent amputation of right great toe, the wound did not heal well and in fact he developped cellulitis at this site and to avoid sepsis and further propagation of the infection. it became necessary for him to have a second operation of right TMA performed by Dr. Land on September 13 and has continue local wound care, dressing changes and due to concern of potential cellulitis of the site patient was restarted on antibiotics and at this point, ID is recommending 10 more days of oral Doxycline. Wound care upon discharge: xeroform, 4x4 and Kerlix wrap to be changed daily. Please call Dr. Land at [phone] for 2 week follow up for suture and staple removal Acute on Chronic anemia of chronic disease for CKD--Stable, He has not required transfusion CKD 4, Baseine around 2.5, Deon with creatine going up to 3, and appear to be stabilized around 3, Nephrology was following and and will follow on outptient basis DMII--resume Jardiance 10 mg daily in addition to sliding scale insulin Hypertension--BP controlled, no meds To short ter rehab for less than 30 days Time Spent with Patient Time attestation: Total time managing care of this patient today ____ minutes. Discharge coordination time: Greater than 30 minutes Quality: Safe Use of Opioids Does Pt have an Active Cancer Diagnosis on the Problem List?: No Quality: Stroke Does the patient have a stroke diagnosis?: No Physical Exam Vital Signs: Vital Signs: Last Vital Signs Temp 97.8 F 09/19/22 12:00 Pulse 76 09/19/22 12:00 Resp 16 09/19/22 12:00 BP 120/62 09/19/22 12:00 Pulse Ox 96 09/19/22 12:00 O2 Del Method Room Air 09/19/22 12:00 O2 Flow Rate 2 09/18/22 19:59 Oxygen Flow Rate 2 09/06/22 10:00 BMI result Body Mass Index 28.8 DS: Data Data Completed and Pending Completed studies during hospitalization [Text1]: Pending at discharge 09/03/22 11:56 Surgical [PTH] Routine 09/13/22 10:11 Surgical [PTH] Routine Procedures Destruction of Bladder, Via Natural or Artificial Opening Endoscopic (08/01/22) Dilation of Right Femoral Artery using Drug-Coated Balloon, Percutaneous Approach (07/11/22) Excision of Bladder, Via Natural or Artificial Opening Endoscopic, Diagnostic (08/01/22) Excision of Left Foot Subcutaneous Tissue and Fascia, Open Approach (06/11/20) Excision of Right Foot Subcutaneous Tissue and Fascia, Open Approach (07/11/22) Extirpation of Matter from Bladder, Via Natural or Artificial Opening Endoscopic (08/01/22) Extirpation of Matter from Right Femoral Artery, Percutaneous Approach (07/11/22) Insertion of Infusion Device into Superior Vena Cava, Percutaneous Approach (07/11/22) Insertion of Pacemaker Lead into Right Atrium, Percutaneous Approach (11/25/20) Insertion of Pacemaker Lead into Right Ventricle, Percutaneous Approach (11/25/20) Insertion of Pacemaker, Dual Chamber into Chest Subcutaneous Tissue and Fascia, Open Approach (11/25/20) Inspection of Upper Intestinal Tract, Via Natural or Artificial Opening Endoscopic (08/01/22) Transfusion of Nonautologous Red Blood Cells into Peripheral Vein, Percutaneous Approach (08/01/22) Ultrasonography of Superior Vena Cava, Guidance (07/11/22) Labs on day of discharge: Laboratory Results - last 24 hr 09/18/22 09/18/22 09/19/22 16:18 20:52 07:20 POC Glucose 331 H 290 H 248 H 09/19/22 11:05 POC Glucose 270 H Discharge Plan Discharge Anticipated Discharge Date/Time: 09/17/22 13:11 Patient Disposition: Home Health Service Discharge Diagnosis: Right foot cellulitis status post trans met amputation. Referrals: [facility] [Outside] - 1 Week (transfer for short term rehab) Gene Eaton PA [Primary Care Provider] - 1 Week Discharge Medications: New ferrous sulfate 324 mg (65 mg iron) Tablet,Delayed Release (Dr/Ec) 324 mg PO BIDWM Qty: 60 0RF doxycycline monohydrate 100 mg Capsule 100 mg PO Q12H Qty: 20 0RF insulin lispro [Humalog U-100 Insulin] 100 unit/mL Solution See Protocol subcut QIDACHS Qty: 10 0RF Protocol: Insulin Correction Scale Less than or equal to 110 ---- Give (units): 0 111 to 150 Give (units): 0 151 to 200 Give (units): 2 201 to 250 Give (units): 4 251 to 300 Give (units): 6 301 to 350 Give (units): 8 Greater than 350 Give (units): 10 Call MD if Blood Glucose > : 350 oxycodone 5 mg Tablet 5 mg PO Q4H PRN (Reason: Pain, Severe (Pain Scale 7-10)) Qty: 15 0RF Rx Instructions: Partial Fill upon patient request. Continued sodium bicarbonate 650 mg Tablet 650 mg PO TID Qty: 90 0RF finasteride 5 mg Tablet 5 mg PO DAILY Qty: 30 0RF metoprolol tartrate 25 mg tablet 12.5 mg PO BID Qty: 30 0RF doxazosin [Cardura] 4 mg tablet 4 mg PO BEDTIME Qty: 30 0RF Jardiance 10 mg tablet 10 mg PO DAILY cholecalciferol (vitamin D3) 50 mcg (2,000 unit) Tablet 50 mcg PO DAILY simvastatin 40 mg tablet 40 mg PO BEDTIME (DME) OneTouch Verio test strips Strip See Rx Instructions Not Applicable TID Qty: 10 Rx Instructions: As directed pantoprazole 20 mg tablet,delayed release (DR/EC) 20 mg PO DAILY Discontinued ertapenem 1 gram recon soln 1 g IV DAILY Qty: 35 0RF Discharge Orders: Discharge Order (Routine); Ordered 09/19/22 Ordered By: Jacques Hummel Diet: Advance to usual diet Activity on Discharge: As tolerated Stand Alone Forms: Patient Portal Discharge page Other Ambulatory Orders: Complete Blood Count no Diff (Routine) Timeframe: 1 Week Facility: [facility] - Location: [address] [place] [address]-Lab Ordered By: Murali Rojas Activity Restrictions/Additional Instructions: Wound care upon discharge: xeroform, 4x4 and Kerlix wrap to be changed daily. Please call Dr. Land at [phone] for 2 week follow up for suture and staple removal Care Plan Goals: Full recovery from amputation and wound healing Health Concerns: Diabetic foot ulcer s/p amputation CKD, DEON Plan of Treatment: Take Doxycline for cellulitis Follow up with Dr. Land Assessment: as above
[2022-09-19 15:27] VITALS: BP 130/64; PULSE 100; RESP 18; TEMP 36.2; O2SAT 96
[2022-09-19 16:17] VITALS: PULSE 123; O2SAT 98
[2022-09-20 19:59] LABS: Myeloperoxidase Antibody <1.0 AI; Proteinase 3 PR3 Antibodies <1.0 AI
== END 2022-09-19 16:36 | disposition home health service (06) | DRG 616 ==
LOC: HO.SSSA 08:45 → HO.S3 13:45
PROVIDERS: Hospitalist; Internal Medicine; Internal Medicine Hypertension Specialist; Physician Assistant Medical; Student in an Organized Health Care Education/Training Program; Admitting Provider Surgery Vascular Surgery; PCP Physician Assistant Medical; Visit Provider Internal Medicine
PROC: 0Y6P0Z0 Detachment at Right 1st Toe, Complete, Open Approach (ICD-10-PCS; principal; 2022-09-03 10:20)
PROC: 0Y6M0ZB Detachment at Right Foot, Partial 2nd Ray, Open Approach (ICD-10-PCS; CPT 28805; principal; 2022-09-13 09:30)
DX: E11.621 Type 2 diabetes mellitus with foot ulcer (principal); L89.623 Pressure ulcer of left heel, stage 3; I13.0 Hypertensive heart and chronic kidney disease with heart failure and stage 1 through stage 4 chronic kidney disease, or unspecified chronic kidney disease; D62 Acute posthemorrhagic anemia; E11.52 Type 2 diabetes mellitus with diabetic peripheral angiopathy with gangrene; T81.41XA Infection following a procedure, superficial incisional surgical site, initial encounter; N17.0 Acute kidney failure with tubular necrosis; N18.4 Chronic kidney disease, stage 4 (severe); D63.1 Anemia in chronic kidney disease; E11.22 Type 2 diabetes mellitus with diabetic chronic kidney disease; N40.0 Benign prostatic hyperplasia without lower urinary tract symptoms; I95.9 Hypotension, unspecified; E78.5 Hyperlipidemia, unspecified; C67.9 Malignant neoplasm of bladder, unspecified; E11.628 Type 2 diabetes mellitus with other skin complications; L03.031 Cellulitis of right toe; E86.0 Dehydration; E11.65 Type 2 diabetes mellitus with hyperglycemia; Z95.0 Presence of cardiac pacemaker; Z87.891 Personal history of nicotine dependence; Z79.4 Long term (current) use of insulin; Z79.84 Long term (current) use of oral hypoglycemic drugs; Z79.899 Other long term (current) drug therapy
CPT/HCPCS: 36415; 36573; 76775; 78306; 80048; 80053; 80202; 81001; 82272; 82565; 82947; 83036; 83540; 83605; 83880; 84484; 85014; 85018; 85025; 85027; 85610; 85730; 86021; 86160; 86850; 86900; 86901; 86920; 86923; 87040; 87077; 87086; 87088; 87186; 87205; 88305; 88307; 88311; 93306; 97110; 97116; 97162; 97530; 99221; 99285; A9521; C1751; C1758; J0131; J0690; J0696; J1100; J1642; J1643; J2020; J2250; J2270; J2370; J2371; J2405; J2795; J3010; J3370; P9016; P9047; Q9957

== ENCOUNTER 2022-09-20 22:54 | Inpatient (IN) | payer MEDICARE, SELFPAY ==
--- NOTE | ~2022-09-20 | NM_ITS ---
EXAMINATION: TC-99M CERETEC WHITE BLOOD CELL STUDY CLINICAL INFORMATION: A 82-year-old male, diabetic and known wound at left heel. History of diabetic osteomyelitis and the right lower complication and history of right below knee amputation. Persistent enterococcus. Suspected infection. COMPARISON: CT of the abdomen and pelvis done on 08/06/2022 and renal ultrasound done on 10/01/2022. TECHNIQUE: Multiple gamma scintillation camera images of the whole body were performed 2 hours following the intravenous administration of 15 millicuries technetium 99m Ceretec labeled autologous white cells. Additional images of the chest and abdomen were obtained to demonstrate physiological white blood cell tagging. The radiotracer was injected through right forearm superficial vein. FINDINGS: Physiologic radiotracer activity is present within the lung, liver, spleen and within the bone marrow as well as within the blood pool. No definite evidence of any focal abnormal increased activity to suspect infection within the visualized entire body. Specifically, no abnormal increased activity is identified involving the left foot. The patient is status post below knee amputation of the right site. NM/NM white blood scan IMPRESSION: No scintigraphic evidence of any focal source of infection is identified. A follow-up FDG PET/CT study may be considered for further clarification, if clinically appropriate.
--- NOTE | ~2022-09-20 | US_ITS ---
EXAMINATION: US RETROPERITONEAL LIMITED (RENAL ONLY) CLINICAL INFORMATION: DEON. COMPARISON: CT abdomen and pelvis 08/06/2022. Renal ultrasound 08/01/2022 and 07/18/2022. TECHNIQUE: Real-time imaging of the kidneys. FINDINGS: RIGHT KIDNEY: 11.1 x 6.3 x 6.2 cm (SAG x AP x TRV). The kidney is normal in size, contour, and echogenicity. Renal cortical thickness is normal. There is mild right hydronephrosis and dilated. 2 cysts measuring 1.3 cm in the midpole and 1.2 x 1.6 cm in the lower pole. No imaging follow-up recommended. No renal stone. LEFT KIDNEY: 10.2 x 5.8 x 4.9 cm (SAG x AP x TRV). The kidney is normal in size, contour, and echogenicity. Renal cortical thickness is normal. There is moderate to severe left hydronephrosis. The left visualized proximal ureter is dilated. There are 2 left renal cysts measuring 1.5 cm and 0.6 cm in the midpole. No imaging follow-up recommended. No renal stone. There is ascites. US/US renal BI IMPRESSION: Bilateral hydronephrosis, left greater than right. This is similar to previous CT scan from July 2022. Ascites..
[2022-09-20 23:08] VITALS: BP 106/62; BP 107/56; PULSE 89; PULSE 95; RESP 16; TEMP 36.3; O2SAT 95; O2SAT 97; BMI 24.3
--- NOTE | 2022-09-20 23:19 | MHC.EDTECH ---
Pt arrived via ambulance was repositioned and cleaned up. POC done and call woodson within reach.
[2022-09-21] VITALS (8 sets, daily range): BP systolic 93–127; BP diastolic 52–68; PULSE 73–91; RESP 14–18; TEMP 35.1–36.6; O2SAT 95–99; BMI 24.3
--- NOTE | 2022-09-21 00:31 | PC.NURSE ---
Addendum entered by Radha Ceron 09/21/22 00:57: Pt has left heal wound with xeroform applied. Original Note: This tech writer called [facility] and spoke to Devin per Dr. Holley request. Staff reports Pt is a new admit and was brought to wound care in [place] by family, upon nurses assessment wound from right amputations were dehiscence. Pt A&O to self, month and year. Pt denies any pain. Jon to right foot noted, dehiscence to top corner of where big toe was, wound warm to touch, small drainage of blood noted. PT
--- NOTE | 2022-09-21 00:55 | PM.IMHP ---
History of Present Illness Date of Service: 09/21/22 Chief Complaint: Non healing wound This is a 81-year-old male with pertinent history chronic kidney disease, peripheral arterial disease, essential hypertension, insulin-dependent diabetes mellitus who was sent from [facility]-term rehab for concern of nonhealing wound. Patient initially had underwent elective right great toe amputation due to nonhealing diabetic foot ulcer. The amputated toe site did not heal as expected so patient underwent TMA on 09/13/2022. Patient was discharged on 09/19/2022 with oral doxycycline and close follow-up with Dr. Land in 2 weeks. Patient is a poor historian and history obtained by ER provider and chart review. He was sent due to gaping of the wound. Patient denies any symptoms. Review of Systems Review of Systems: Yes Unobtainable due to mental condition [facility] Medical History Acute osteomyelitis Back pain CKD (chronic kidney disease) stage 3, GFR 30-59 ml/min Congestive heart failure with LV diastolic dysfunction, NYHA class 3 Decubitus ulcer, heel Diabetes mellitus Gram-negative bacteremia H/O cardiac pacemaker Heart block History of COVID-19 Hyperlipidemia Hypertension Infection of right foot Iron deficiency anemia PAD (peripheral artery disease) Type 2 diabetes mellitus with unspecified complications Ulcer of left heel Ulcer of right 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 Urinary retention Family History Brother Testicular cancer Surgical History History of atherectomy History of back surgery History of esophagogastroduodenoscopy History of left hip replacement Hx of cataract extraction Hx of colonoscopy Social History Household Members: Spouse Household Members Other:: 2 Housing: House Do you presently have visiting nurse or other home services: Yes Alcohol intake: former Patient Tobacco Use Status: Former Tobacco user Quit Date: 15 years Tobacco use type: Cigarette Advance Directives: Yes Advance Directives on File: Yes Advance Directives Date on File: 07/12/22 service: No Current occupational status: retired Meds Allergies Allergy/AdvReac Type Severity Reaction Status Date / Time lisinopril [LISINOPRIL] Allergy Severe ANGIOEDEMA Verified 08/30/22 10:56 Home Medications Medication Instructions Recorded Confirmed Last Taken Type simvastatin 40 mg tablet 40 mg PO BEDTIME 03/17/20 09/03/22 09/02/22 History blood sugar diagnostic (OneTouch #10 ea 11/11/20 09/03/22 09/03/22 History Verio test strips) pantoprazole 20 mg tablet,delayed 20 mg PO DAILY 11/11/20 09/03/22 09/03/22 History release cholecalciferol (vitamin D3) 50 50 mcg PO DAILY 07/11/22 09/03/22 09/03/22 History mcg (2,000 unit) tablet empagliflozin 10 mg tablet 10 mg PO DAILY 07/11/22 09/03/22 09/03/22 History (Jardiance) Physical Exam Vital Signs and Narrative: Vital Signs: Last Vital Signs Temp 97.4 F 09/20/22 23:08 Pulse 89 09/20/22 23:08 Resp 16 09/20/22 23:08 BP 107/56 L 09/20/22 23:08 Pulse Ox 97 09/20/22 23:08 O2 Del Method Room Air 09/20/22 23:08 BMI result Body Mass Index 24.3 Elderly male lying in bed in no distress Neck supple, no JVD Regular rate and rhythm, S1-S2 heard Regular breath sounds bilaterally, no wheezing or crackles appreciated Abdomen soft nontender, no guarding, no rigidity Patient is awake, alert and oriented to self, place, disoriented to time and person ; no focal motor deficit Extremity: Right TMA with gaping mood and serosanguineous drainage Psych: Normal mood No pedal edema Results Labs 09/20/22 23:25 09/20/22 23:25 Labs: Laboratory Results - last 24 hr 09/20/22 09/20/22 09/20/22 23:12 23:25 23:25 MCV 87.0 MCH 27.6 MCHC 31.7 RDW 15.8 Plt Count 158 L D MPV 11.6 Immature Gran % (Auto) 0.6 H Neut % (Auto) 89.7 H Lymph % (Auto) 4.9 L [place] % (Auto) 4.2 Eos % (Auto) 0.4 Baso % (Auto) 0.2 Lymph # (Auto) 0.5 L [place] # (Auto) 0.4 Eos # (Auto) 0.0 Baso # (Auto) 0.0 Abs Immat Gran (auto) 0.06 H Absolute Neuts (auto) 8.8 H Absolute Nucleated RBC 0.000 Nucleated RBC % (auto) 0.0 Anion Gap 17 Estim Creat Clear Calc 14.8 Estimated GFR 15 POC Glucose 329 H Random Glucose 405 H* Lactic Acid Calcium 9.8 D Total Bilirubin 1.1 H AST 33 ALT 15 Alkaline Phosphatase 148 H Total Protein 6.8 Albumin 2.7 L 09/21/22 00:25 MCV MCH MCHC RDW Plt Count MPV Immature Gran % (Auto) Neut % (Auto) Lymph % (Auto) [place] % (Auto) Eos % (Auto) Baso % (Auto) Lymph # (Auto) [place] # (Auto) Eos # (Auto) Baso # (Auto) Abs Immat Gran (auto) Absolute Neuts (auto) Absolute Nucleated RBC Nucleated RBC % (auto) Anion Gap Estim Creat Clear Calc Estimated GFR POC Glucose Random Glucose Lactic Acid 1.9 Calcium Total Bilirubin AST ALT Alkaline Phosphatase Total Protein Albumin Assessment and Plan (1) Nonhealing nonsurgical wound: Status: Acute Plan This is a 81-year-old male with pertinent history chronic kidney disease, peripheral arterial disease, essential hypertension, insulin-dependent diabetes mellitus [facility]. #. Cellulitis of TMA site with gaping/nonhealing of wound. Will admit patient and initiate IV vancomycin while in the hospital. Consulting vascular surgery, appreciate assistance. Will keep patient NPO #. DEON on Chronic kidney disease. Resuscitating with IV crystalloids. Monitor and avoid nephrotoxins #. Anemia chronic kidney disease. Hemoglobin above transfusion threshold #. Insulin-dependent diabetes mellitus with hyperglycemia. Initiating Accu-Cheks with sliding scale insulin #. Essential hypertension. Continue home antihypertensives Med rec pending DVT prophylaxis: Hold Lovenox until surgical evaluation Full code Time Spent With Patient Time: Total time managing care of this patient today ____ minutes. Quality Stroke Does the patient have a stroke diagnosis?: No VTE Prior VTE?: No VTE Risk Level:: Medical - moderate - high VTE Device Contraindication: Treatment Not Indicated VTE Drug Contraindication: Treatment Not Indicated
--- NOTE | 2022-09-21 01:14 | ED.EXTPRO ---
HPI - Extremity Problem General Chief complaint: Extremity Problem Stated complaint: toe infection Time Seen by Provider: 09/20/22 22:57 Source: patient and EMS Mode of arrival: EMS History of Present Illness HPI Narrative: This is an 82-year-old male who is brought in by EMS from [facility]. As per staff patient was at a wound clinic and wound dehiscence was noted. Patient is not a good historian himself and I reviewed further documentation and history as he was discharged from this hospital on 09/19. Related Data Home Medications Medication Instructions Recorded Confirmed simvastatin 40 mg tablet 40 mg PO BEDTIME 03/17/20 09/03/22 blood sugar diagnostic (OneTouch #10 ea 11/11/20 09/03/22 Verio test strips) pantoprazole 20 mg tablet,delayed 20 mg PO DAILY 11/11/20 09/03/22 release cholecalciferol (vitamin D3) 50 50 mcg PO DAILY 07/11/22 09/03/22 mcg (2,000 unit) tablet empagliflozin 10 mg tablet 10 mg PO DAILY 07/11/22 09/03/22 (Jardiance) Previous Rx's Medication Instructions Recorded doxazosin 4 mg tablet (Cardura) 4 mg PO BEDTIME #30 tabs 08/14/22 finasteride 5 mg tablet 5 mg PO DAILY #30 tabs 08/14/22 metoprolol tartrate 25 mg tablet 12.5 mg PO BID #30 tabs 08/14/22 sodium bicarbonate 650 mg tablet 650 mg PO TID #90 tabs 08/14/22 ferrous sulfate 324 mg (65 mg 324 mg PO BIDWM #60 tabs 09/05/22 iron) tablet,delayed release doxycycline monohydrate 100 mg 100 mg PO Q12H #20 caps 09/17/22 capsule insulin lispro 100 unit/mL See Protocol subcut QIDACHS #10 mL 09/19/22 subcutaneous solution (Humalog U-100 Insulin) oxycodone 5 mg tablet 5 mg PO Q4H PRN Pain, Severe (Pain 09/19/22 Scale 7-10) #15 tabs Allergies Allergy/AdvReac Type Severity Reaction Status Date / Time lisinopril [LISINOPRIL] Allergy Severe ANGIOEDEMA Verified 08/30/22 10:56 Review of Systems Review of Systems: Pertinent positives and negatives as stated in the HPI [facility] Past Medical History Source: nursing notes reviewed Medical History Acute osteomyelitis Back pain CKD (chronic kidney disease) stage 3, GFR 30-59 ml/min Congestive heart failure with LV diastolic dysfunction, NYHA class 3 Decubitus ulcer, heel Diabetes mellitus Gram-negative bacteremia H/O cardiac pacemaker Heart block History of COVID-19 Hyperlipidemia Hypertension Infection of right foot Iron deficiency anemia PAD (peripheral artery disease) Type 2 diabetes mellitus with unspecified complications Ulcer of left heel Ulcer of right 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 Urinary retention Surgical History History of atherectomy History of back surgery History of esophagogastroduodenoscopy History of left hip replacement Hx of cataract extraction Hx of colonoscopy Family History Family History Brother Testicular cancer Social History Social History Household Members: Spouse Household Members Other:: 2 Housing: House Do you presently have visiting nurse or other home services: Yes Alcohol intake: former Patient Tobacco Use Status: Former Tobacco user Quit Date: 15 years Tobacco use type: Cigarette Advance Directives: Yes Advance Directives on File: Yes Advance Directives Date on File: 07/12/22 service: No Current occupational status: retired Physical Exam Vital Signs: Vital Signs: Last Vital Signs Temp 97.4 F 09/20/22 23:08 Pulse 89 09/20/22 23:08 Resp 16 09/20/22 23:08 BP 107/56 L 09/20/22 23:08 Pulse Ox 97 09/20/22 23:08 O2 Del Method Room Air 09/20/22 23:08 BMI result Body Mass Index 24.3 VITAL SIGNS: Reviewed. GENERAL: Chronically ill, appears older than stated age, in no acute distress. HEAD: Normocephalic/atraumatic EYES: PERRLA, EOMI EARS: Ext canals without abnormality NOSE: Nares patent bilateral OROPHARYNX: no oral lesions noted, dry mucosa PULM: No tachypnea, SpO2-97% on room air CARDIOVASCULAR: Regular rate and rhythm without noted murmurs, no JVD or lower extremity edema. ABDOMEN: Soft, non-tender, non-distended with bowel sounds. MUSCULOSKELETAL: No tenderness, deformities, or effusions noted on gross inspection. EXTREMITIES: No cyanosis, clubbing or edema RLE: There is an obvious TMA of the right foot with julio césar in place but obvious dehiscence of the wound surrounding erythema and induration. LLE: There is a pressure ulcer noted to the posterior calcaneus. SKIN: Inspection of the skin reveals no rashes NEUROLOGIC: Alert and strength and sensation to light touch were grossly intact x 4. Medications Administered Discontinued Medications Generic Name Dose Route Start Last Admin Trade Name Freq PRN Reason Stop Dose Admin Sodium Chloride 500 mls @ 999 mls/hr 09/21/22 00:15 09/21/22 00:59 Ns IV 09/21/22 00:45 999 mls/hr .Q31M JIL Administration Medical Decision Making Medical Decision Making [facility] Narrative: This is an 82-year-old male with history and clinical presentation of right TMA wound dehiscence, the etiology is really the differential and unclear whether not this is underlying infection with complicated vascular compromise due to longstanding history of diabetes. I reviewed the notes from surgery as well as the patient's course while here in the hospital. He is on antibiotics for right foot cellulitis, doxycycline, and he has received all doses which would preclude him getting a dose here in the emergency room and he does not have evidence of SIRS at this time. I reviewed all investigations and the hematologic studies appear to be chronically stable no evidence of leukocytosis at this time, but there is a new thrombocytopenia. The anemia and left shift appear to be chronically stable. On review of the chemistries there is an acute on chronic renal failure, pseudohyponatremia secondary to hyperglycemia without evidence of DKA or HHS. 0031: I discussed case with inpatient hospitalist who accepts admission and will consult vascular surgery in the morning. Differential Diagnosis Please see the discussion above Admission/Observation Consideration of admission/observation: Escalation of care including admission/observation considered Consult Healthcare Provider Management of the patient was discussed with: Hospitalist Please see the discussion above Lab Data Please see the discussion above 09/20/22 23:25 09/20/22 23:25 Labs: Lab Results 09/20/22 09/20/22 09/20/22 Range/Units 23:12 23:25 23:25 WBC 9.8 (4.8-10.8) X10*3/uL RBC 3.30 L (4.60-5.80) X10*6/uL Hgb 9.1 L (14.0-18.0) g/dl Hct 28.7 L (42.0-52.0) % MCV 87.0 (80.0-98.0) fL MCH 27.6 (27.0-33.0) pg MCHC 31.7 (31.0-36.0) g/dl RDW 15.8 (11.0-16.0) % Plt Count 158 L D (160-400) X10*3/uL MPV 11.6 (9.4-12.4) fL Immature Gran % (Auto) 0.6 H (0.0-0.4) % Neut % (Auto) 89.7 H (45-73) % Lymph % (Auto) 4.9 L (20-40) % [place] % (Auto) 4.2 (2-11) % Eos % (Auto) 0.4 (0-4) % Baso % (Auto) 0.2 (0-2) % Lymph # (Auto) 0.5 L (1.2-4.9) X10*3/uL [place] # (Auto) 0.4 (0.1-1.2) X10*3/uL Eos # (Auto) 0.0 (0.0-0.4) X10*3/uL Baso # (Auto) 0.0 (0.0-0.2) X10*3/uL Abs Immat Gran (auto) 0.06 H (0.00-0.03) X10*3/uL Absolute Neuts (auto) 8.8 H (2.0-8.3) x10*3/uL Absolute Nucleated RBC 0.000 (0.0-0.012) X10*3/uL Nucleated RBC % (auto) 0.0 (0.0-0.2) /100WBC Sodium 133 L (135-145) mmol/L Potassium 4.4 (3.3-5.1) mmol/L Chloride 101 (96-108) mmol/L Carbon Dioxide 19 L (22-29) mmol/L Anion Gap 17 (12-20) BUN 83 H (9-16) mg/dL Creatinine 3.90 H (0.5-1.4) mg/dL Estim Creat Clear Calc 14.8 Estimated GFR 15 POC Glucose 329 H (60-115) mg/dL Random Glucose 405 H* (60-115) mg/dL Lactic Acid (0.5-2.0) mmol/L Calcium 9.8 D (8.4-10.2) mg/dL Total Bilirubin 1.1 H (0.0-1.0) mg/dL AST 33 (5-37) U/L ALT 15 (0-40) U/L Alkaline Phosphatase 148 H (39-117) U/L Total Protein 6.8 (6.5-8.0) g/dL Albumin 2.7 L (3.5-5.0) g/dL 09/21/22 Range/Units 00:25 WBC (4.8-10.8) X10*3/uL RBC (4.60-5.80) X10*6/uL Hgb (14.0-18.0) g/dl Hct (42.0-52.0) % MCV (80.0-98.0) fL MCH (27.0-33.0) pg MCHC (31.0-36.0) g/dl RDW (11.0-16.0) % Plt Count (160-400) X10*3/uL MPV (9.4-12.4) fL Immature Gran % (Auto) (0.0-0.4) % Neut % (Auto) (45-73) % Lymph % (Auto) (20-40) % [place] % (Auto) (2-11) % Eos % (Auto) (0-4) % Baso % (Auto) (0-2) % Lymph # (Auto) (1.2-4.9) X10*3/uL [place] # (Auto) (0.1-1.2) X10*3/uL Eos # (Auto) (0.0-0.4) X10*3/uL Baso # (Auto) (0.0-0.2) X10*3/uL Abs Immat Gran (auto) (0.00-0.03) X10*3/uL Absolute Neuts (auto) (2.0-8.3) x10*3/uL Absolute Nucleated RBC (0.0-0.012) X10*3/uL Nucleated RBC % (auto) (0.0-0.2) /100WBC Sodium (135-145) mmol/L Potassium (3.3-5.1) mmol/L Chloride (96-108) mmol/L Carbon Dioxide (22-29) mmol/L Anion Gap (12-20) BUN (9-16) mg/dL Creatinine (0.5-1.4) mg/dL Estim Creat Clear Calc Estimated GFR POC Glucose (60-115) mg/dL Random Glucose (60-115) mg/dL Lactic Acid 1.9 (0.5-2.0) mmol/L Calcium (8.4-10.2) mg/dL Total Bilirubin (0.0-1.0) mg/dL AST (5-37) U/L ALT (0-40) U/L Alkaline Phosphatase (39-117) U/L Total Protein (6.5-8.0) g/dL Albumin (3.5-5.0) g/dL External Record Review External record reviewed: Inpatient record, Outpatient record and Prior outpatient labs Chronic Conditions Patient?s care impacted by: Diabetes Critical Care Time Critical Care Time Critical Care Time: Yes Total Critical Care Time: 30 Attestation: I personally attest to this time spent taking care of the patient. Discharge Plan Discharge Clinical Impression: Dehiscence of wound, Cellulitis, Acute on chronic renal failure Patient Disposition: Admitted As Inpatient Prescriptions: No Action sodium bicarbonate 650 mg Tablet 650 mg PO TID Qty: 90 0RF finasteride 5 mg Tablet 5 mg PO DAILY Qty: 30 0RF metoprolol tartrate 25 mg tablet 12.5 mg PO BID Qty: 30 0RF doxazosin [Cardura] 4 mg tablet 4 mg PO BEDTIME Qty: 30 0RF ferrous sulfate 324 mg (65 mg iron) Tablet,Delayed Release (Dr/Ec) 324 mg PO BIDWM Qty: 60 0RF doxycycline monohydrate 100 mg Capsule 100 mg PO Q12H Qty: 20 0RF insulin lispro [Humalog U-100 Insulin] 100 unit/mL Solution See Protocol subcut QIDACHS Qty: 10 0RF Protocol: Insulin Correction Scale Less than or equal to 110 ---- Give (units): 0 111 to 150 Give (units): 0 151 to 200 Give (units): 2 201 to 250 Give (units): 4 251 to 300 Give (units): 6 301 to 350 Give (units): 8 Greater than 350 Give (units): 10 Call MD if Blood Glucose > : 350 oxycodone 5 mg Tablet 5 mg PO Q4H PRN (Reason: Pain, Severe (Pain Scale 7-10)) Qty: 15 0RF Rx Instructions: Partial Fill upon patient request. Jardiance 10 mg tablet 10 mg PO DAILY cholecalciferol (vitamin D3) 50 mcg (2,000 unit) Tablet 50 mcg PO DAILY simvastatin 40 mg tablet 40 mg PO BEDTIME (DME) OneTouch Verio test strips Strip See Rx Instructions Not Applicable TID Qty: 10 Rx Instructions: As directed pantoprazole 20 mg tablet,delayed release (DR/EC) 20 mg PO DAILY
--- NOTE | 2022-09-21 01:36 | PC.NURSE ---
Per Dr. Varghese Iv insulin and subcut insulin to be given as ordered.
--- NOTE | 2022-09-21 02:46 | PC.NURSE ---
Addendum entered by Radha Ceron 09/21/22 03:16: Correction: red area noted to coccyx area. Original Note: Pt incontinent of urine, incontinent care provided. Skin is warm and dry, no redness or open areas noted to buttocks.
--- NOTE | 2022-09-21 02:47 | PC.NURSE ---
Report given to cheo REYNOSO, Pt will be transported to room 369.
--- NOTE | 2022-09-21 03:22 | PC.NURSE ---
Rectal temp 95.2, Dr. Varghese aware, no new orders at this time.
--- NOTE | 2022-09-21 03:58 | HO.SKINPHOTO ---
Location: right foot surgical site Category: Stage: Length: Width: Depth: cm Location: Category: Stage: Length: Width: Depth: cm Location: Category: Stage: Length: Width: Depth: cm Location: Category: Stage: Length: Width: Depth: cm Location: Category: Stage: Length: Width: Depth: cm Location: Category: Stage: Length: Width: Depth: cm
--- NOTE | 2022-09-21 04:06 | HO.SKINPHOTO ---
Addendum entered by Radhika Swenson RN 09/21/22 04:08: patient admitted to room 369, see two photos of right foot Original Note: Location:right foot surgical wound Category: Stage: Length: Width: Depth: cm Location: Category: Stage: Length: Width: Depth: cm Location: Category: Stage: Length: Width: Depth: cm Location: Category: Stage: Length: Width: Depth: cm Location: Category: Stage: Length: Width: Depth: cm Location: Category: Stage: Length: Width: Depth: cm
--- NOTE | 2022-09-21 04:27 | HO.SKINPHOTO ---
Location:right foot surgical site, photo # 3 Category: Stage: Length: Width: Depth: cm Location: Category: Stage: Length: Width: Depth: cm Location: Category: Stage: Length: Width: Depth: cm Location: Category: Stage: Length: Width: Depth: cm Location: Category: Stage: Length: Width: Depth: cm Location: Category: Stage: Length: Width: Depth: cm
--- NOTE | 2022-09-21 04:53 | HO.SKINPHOTO ---
Location:LEFT HEEL PRESSURE INJURY Category: Stage: Length: Width: Depth: cm Location: Category: Stage: Length: Width: Depth: cm Location: Category: Stage: Length: Width: Depth: cm Location: Category: Stage: Length: Width: Depth: cm Location: Category: Stage: Length: Width: Depth: cm Location: Category: Stage: Length: Width: Depth: cm
--- NOTE | 2022-09-21 04:59 | PC.NURSE ---
PATIENT IS A 82 YEAR OLD MALE ADMITTED FROM ED TO ROOM 369 WITH NON HEALING RECENT SURGICAL WOUND (TMA), RIGHT FOOT. PT ALERT, BUT SLEEPY AND QUIET. PT DENIED PAIN, LUNG CHRISTENSEN CLEAR, INCONTINENT OF URINE WITH SKIN CARE. BILAT GROIN AND SCROTAL AREA NOTED WITH REDNESS, PRESSURE INJURY AT LEFT HEAL, AND NON HEALING WOUND RIGHT FOOT. WET TO DRY DRESSING TO RIGHT AND ELEVATED ON PILLOWS. LEFT HEEL WITH WRAP FROM ED SETTING. PHOTOS TAKEN AND AVAILABLE TO VIEW IN PREVIOUS NURSES NOTE. SMALL SCRATCH SILVESTRE AT BILA LOWER LEGS. PT SETTLED INTO BED, IVF BOLUS AND ABX COMPLETED FROM ED START AND ABLE TO NAP WITH NO S/SX DISTRESS. CALL [place] WITH IN REACH. PT NPO AWAITING VASCULAR SURGEON TO SEE HIM.
[2022-09-21 07:35] LABS: MANUAL DIFF FLAG NO
[2022-09-21 07:41] LABS: Basophils Absolute Auto 0.1 X10*3/uL (0.0-0.2); Basophils Percent Auto 0.9 % (0-2); Eosinophils Absolute Auto 0.2 X10*3/uL (0.0-0.4); Eosinophils Percent Auto 2.7 % (0-4); Hematocrit 26.7 % (42.0-52.0); Hemoglobin 8.5 g/dl (14.0-18.0); Imm Gran Abs Auto 0.04 X10*3/uL (0.00-0.03); Imm Gran Pct Auto 0.6 % (0.0-0.4); Lymphocytes Absolute Auto 0.6 X10*3/uL (1.2-4.9); Lymphocytes Percent Auto 8.7 % (20-40); Mean Corpuscular HGB Conc 31.8 g/dl (31.0-36.0); Mean Corpuscular Hemoglobin 28.2 pg (27.0-33.0); Mean Corpuscular Volume 88.7 fL (80.0-98.0); Mean Platelet Volume 11.8 fL (9.4-12.4); Monocytes Absolute Auto 0.6 X10*3/uL (0.1-1.2); Monocytes Percent Auto 9.1 % (2-11); Neutrophils Absolute Auto 5.4 x10*3/uL (2.0-8.3); Platelet Count 167 X10*3/uL (160-400); Red Blood Count 3.01 X10*6/uL (4.60-5.80); Red Cell Distribution Width 15.6 % (11.0-16.0); White Blood Count 6.9 X10*3/uL (4.8-10.8)
--- NOTE | 2022-09-21 07:48 | PHA.PROG ---
Admission Date/Time: September 21, 2022 01:09 Indication: Skin infection Weight in k.8 kg Adjusted body weight in Kg: [place] body weight in Kg: Obesity Dosing Indication % IBW: Serum Creatinine - Last 168 Hours 09/20/22 23:25 Creatinine 3.90 H Estimated CrCl and GFR - Last 168 Hours 09/20/22 23:25 Estim Creat Clear Calc 14.8 Estimated GFR 15 Vancomycin Loading Dose: 1750 mg Current Vancomycin Dosing Regimen: 500 mg Q48H Date and Time for next Vancomycin Level to be drawn: 09/23 @ 0600 Pharmacist Comments on Vancomycin Plan: patient received load dose vancomycin 1750 mg in the ER on 09/21 @ 0143 Patient admitted, was given vancomycin 500 mg Q48H Due to DEON and rising SCR, will get a random level prior to initiating maintenance dose on 09/23. Vancomycin dosing will take advantage of [employer] as a clinical decision support tool that uses Bayesian modeling to calculate individual patient's pharmacokinetic parameters and forecast the patient's drug concentration time course with the target goal AUC 24 range of 400 - 600 mg/L/hr.
--- NOTE | 2022-09-21 08:37 | PHA.MEDREC ---
Addendum entered by Kami Madden [facility] 09/21/22 08:44: Reviewed Original Note: Pharmacy Consult ? Medication Reconciliation Pharmacy has completed the medication reconciliation. Patient is from [facility].
--- NOTE | 2022-09-21 08:46 | PM.EVENT ---
Event Note Date of Service: 09/21/22 Event Note: Seen/examined. Admitted today 09/21, was DC to SNF on 09/19 following foot right toe ampuation, later right TMA complicated by poor healing cellulitis. 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 O/w Plan: As outlined in H and P from this morning. Time Spent With Patient Time: Total time managing care of this patient today ____ minutes.
[2022-09-21 08:50] LABS: Anion Gap 15 (12-20); Blood Urea Nitrogen 76 mg/dL (9-16); Calcium 8.8 mg/dL (8.4-10.2); Carbon Dioxide 19 mmol/L (22-29); Chloride 108 mmol/L (96-108); Creatinine Clr Calc Pharmacy 17.5; Estimated Glomerular Filt Rate 18; Glucose Random 179 mg/dL (60-115); Potassium 3.4 mmol/L (3.3-5.1); Sodium 139 mmol/L (135-145)
--- NOTE | 2022-09-21 08:52 | HO.PM.IMPN ---
Subjective Subjective Date of Service: 09/22/22 Interval History: f/u on infected surgical ampuation site has no complaint toda Physical Exam Vital Signs: Vital Signs: Last Vital Signs Temp 96.9 F 09/21/22 07:39 Pulse 81 09/21/22 07:39 Resp 18 09/21/22 07:39 BP 126/64 09/21/22 07:39 Pulse Ox 96 09/21/22 07:39 O2 Del Method Room Air 09/21/22 07:39 BMI result Body Mass Index 24.3 Const: Other: General: AO X 3, no acute distress Resp: CTA bilateral CVS: S1,S2,RRR GI: +BS, NT, no distention Skin: dressing intact Neuro: motor grossly intact Psych: appropriate affect Objective Data Active Medications Acetaminophen (Acetaminophen 325 Mg Tablet) 650 mg PO Q6H PRN PRN Reason: Pain, Mild (Pain Scale 1-3) Acetaminophen (Acetaminophen 325 Mg Tablet) 650 mg PO Q6H PRN PRN Reason: Fever Or Pain Bisacodyl (Bisacodyl 10 Mg Supp.Rect) 10 mg ME DAILY PRN PRN Reason: Constipation Dextrose (Dextrose 50 % 25 Gm/50 Ml Syringe) 25 gm IVPUSH Q15M PRN; Protocol PRN Reason: per Hypoglycemia Standing Ord. Doxazosin Mesylate (Doxazosin Mesylate 2 Mg Tablet) 4 mg PO BEDTIME [facility]; Protocol Empagliflozin (Empagliflozin 10 Mg Tablet) 10 mg PO DAILY [facility] Ferrous Sulfate (Ferrous Sulfate 324 Mg Tablet.Dr) 324 mg PO BIDWM [facility] Glucose (Glucose Gel 15 Gm Gel..Gram.) 15 gm PO Q15M PRN; Protocol PRN Reason: per Hypoglycemia Standing Ord. Vancomycin HCl 500 mg/ Sodium (Chloride) 110 mls @ 110 mls/hr IV Q48H [facility] Insulin Human Lispro (Insulin Lispro 100 Unit/Ml 3 Ml Vial) 0 unit SUBCUT Q6H [facility]; Protocol Last Admin: 09/21/22 07:49 Dose: Not Given Documented By: ROLAND Non-Admin Reason: NPO Magnesium Hydroxide (Milk Of Magnesia 30 Ml Oral.Susp) 30 ml PO DAILY PRN PRN Reason: Constipation Melatonin (Melatonin 3 Mg Tablet) 6 mg PO BEDTIME PRN PRN Reason: Insomnia Metoprolol Tartrate (Metoprolol Tartrate 12.5 Mg Halftab) 12.5 mg PO BID [facility]; Protocol Ondansetron HCl (Ondansetron Hcl 4 Mg/2 Ml Vial) 4 mg IVPUSH Q8H PRN PRN Reason: Nausea and Vomiting Oxycodone HCl (Oxycodone Hcl Immed Release 5 Mg Tablet) 5 mg PO Q4H PRN PRN Reason: Pain, Severe (Pain Scale 7-10) Pharmacy Consult (Consult Rx Vancomycin Dosing) 1 each MISCELLANE DAILY PRN PRN Reason: Consult order Pharmacy Consult (Consult Rx Perform Med Rec) 1 each MISCELLANE ONCE PRN PRN Reason: Consult order Sodium Bicarbonate (Sodium Bicarbonate 650 Mg Tablet) 650 mg PO TID [facility] Sodium Biphosphate/Sodium Phosphate (Sodium Phosphate,[place]-Dibasic 133 Ml Enema) 118 ml ME DAILY PRN PRN Reason: Constipation Sodium Chloride (0.9 % Sodium Chloride Flush 3 Ml Syringe) 3 ml IVFLUSH QSHIFT [facility] Labs 09/21/22 05:58 09/21/22 05:58 Labs: Laboratory Results - last 24 hr 09/20/22 09/20/22 09/20/22 23:12 23:25 23:25 MCV 87.0 MCH 27.6 MCHC 31.7 RDW 15.8 Plt Count 158 L D MPV 11.6 Immature Gran % (Auto) 0.6 H Neut % (Auto) 89.7 H Lymph % (Auto) 4.9 L [place] % (Auto) 4.2 Eos % (Auto) 0.4 Baso % (Auto) 0.2 Lymph # (Auto) 0.5 L [place] # (Auto) 0.4 Eos # (Auto) 0.0 Baso # (Auto) 0.0 Abs Immat Gran (auto) 0.06 H Absolute Neuts (auto) 8.8 H Absolute Nucleated RBC 0.000 Nucleated RBC % (auto) 0.0 Anion Gap 17 Estim Creat Clear Calc 14.8 Estimated GFR 15 POC Glucose 329 H Random Glucose 405 H* Lactic Acid Calcium 9.8 D Total Bilirubin 1.1 H AST 33 ALT 15 Alkaline Phosphatase 148 H Total Protein 6.8 Albumin 2.7 L 09/21/22 09/21/22 09/21/22 00:25 01:14 05:58 MCV 88.7 MCH 28.2 MCHC 31.8 RDW 15.6 Plt Count 167 MPV 11.8 Immature Gran % (Auto) 0.6 H Neut % (Auto) 78.0 H Lymph % (Auto) 8.7 L [place] % (Auto) 9.1 Eos % (Auto) 2.7 Baso % (Auto) 0.9 Lymph # (Auto) 0.6 L [place] # (Auto) 0.6 Eos # (Auto) 0.2 Baso # (Auto) 0.1 Abs Immat Gran (auto) 0.04 H Absolute Neuts (auto) 5.4 Absolute Nucleated RBC 0.000 Nucleated RBC % (auto) 0.0 Anion Gap Estim Creat Clear Calc Estimated GFR POC Glucose 309 H Random Glucose Lactic Acid 1.9 Calcium Total Bilirubin AST ALT Alkaline Phosphatase Total Protein Albumin 09/21/22 09/21/22 05:58 07:23 MCV MCH MCHC RDW Plt Count MPV Immature Gran % (Auto) Neut % (Auto) Lymph % (Auto) [place] % (Auto) Eos % (Auto) Baso % (Auto) Lymph # (Auto) [place] # (Auto) Eos # (Auto) Baso # (Auto) Abs Immat Gran (auto) Absolute Neuts (auto) Absolute Nucleated RBC Nucleated RBC % (auto) Anion Gap 15 Estim Creat Clear Calc 17.5 Estimated GFR 18 POC Glucose 170 H Random Glucose 179 H Lactic Acid Calcium 8.8 D Total Bilirubin AST ALT Alkaline Phosphatase Total Protein Albumin Assessment and Plan (1) Diabetes type 2, controlled: Status: Acute (2) Amputation of right great toe: Status: Acute (3) Cellulitis of foot, right: Status: Acute Plan 81 years old male with PMH of CKD, CHF, recent OM, DM, HTN , PAD among others admitted on 09/03/22 to Vascular surgery service by Dr. Land and underwent elective Right great toe ampuation due to Nonhealing diabetic foot ulcer, followed by Right TMA on 09/13/22, and was discharge on 09/19 and went to the wound clinic 09/20 and noted to have drainage, ordor and concern for infection and sent to the ED and admitted again. Right great toe diabetic foot ulcer s/p right toe ampuation on 09/03, and was not healing well with possible infection so underwent right TMA on 09/13/22, site not healing well. Will have BKA on 09/24/22, IV Abx (Vanco) in the interim Acute on Chronic anemia 2/2 CKD 3--Stable e DMII--Jardiance and SSI Hypertension--controlled on Metoprolol Need for inpt: Infected amputated site, awaiting surgery will discharge when has bed . Time Spent With Patient Time: Total time managing care of this patient today ____ minutes. Quality Stroke Does the patient have a stroke diagnosis?: No VTE Prior VTE?: No VTE Risk Level:: Medical - moderate - high VTE Device Contraindication: Treatment Not Indicated VTE Drug Contraindication: Treatment Not Indicated
[2022-09-21] MEDS: Empagliflozin 10 MG TABLET PO (09:02)
[2022-09-21] MEDS: Metoprolol Tartrate 12.5 MG HALFTAB PO ×2 (09:02→20:48)
[2022-09-21] MEDS: Cholecalciferol (Vitamin D3) 25 MCG TABLET 50 MCG PO (09:02)
[2022-09-21] MEDS: Finasteride 5 MG TABLET PO (09:03)
[2022-09-21] MEDS: Sodium Bicarbonate 650 MG TABLET PO ×3 (09:06→20:48)
--- NOTE | 2022-09-21 09:31 | PM.CNGS ---
History of Present Illness Consult details Consult date: 09/21/22 Reason for consult: wound care Narrative: Very complex 82-year-old gentleman presents for follow-up status post right transmetatarsal amputation. He originally did fairly well with this and was transferred to rehab facility. In the interim he did have an appointment with [facility] and is scheduled for radiation therapy at [facility] for his bladder cancer. The concern here is this flap did not heal. In addition we are unable to improve his blood supply due to his bleeding. He now presents for follow-up regarding this nonhealing transmetatarsal amputation of the right foot. Review of Systems Review of Systems: Yes all other systems are reviewed and are negative Constitutional: Constitutional: Reports no additional constitutional complaints ENT: Reports Normal hearing present Cardiovascular: Cardiovascular: Denies chest pain, Denies chest pain at rest, Denies chest pain with activity and Denies pedal edema Respiratory: Respiratory: Denies cough Gastrointestinal: Gastrointestinal: Denies abdominal pain Musculoskeletal: Musculoskeletal: Denies abnormal gait, Denies muscle cramps and Denies radiating pain into limb Integumentary/Breasts: Skin/Breast: Denies skin ulcer and Denies wounds Neurologic: Reports Normal hearing present and Denies abnormal gait Psychiatric: Psychiatric: Reports no additional psychiatric complaints PMFSH Past Medical History Medical History Acute osteomyelitis Back pain CKD (chronic kidney disease) stage 3, GFR 30-59 ml/min Congestive heart failure with LV diastolic dysfunction, NYHA class 3 Decubitus ulcer, heel Diabetes mellitus Gram-negative bacteremia H/O cardiac pacemaker Heart block History of COVID-19 Hyperlipidemia Hypertension Infection of right foot Iron deficiency anemia PAD (peripheral artery disease) Type 2 diabetes mellitus with unspecified complications Ulcer of left heel Ulcer of right 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 Urinary retention Family History Family History Brother Testicular cancer Surgical History Surgical History History of atherectomy History of back surgery History of esophagogastroduodenoscopy History of left hip replacement Hx of cataract extraction Hx of colonoscopy Social History Social History Household Members: Spouse Household Members Other:: 2 Housing: House Do you presently have visiting nurse or other home services: Yes Alcohol intake: never Patient Tobacco Use Status: Former Tobacco user Quit Date: 15 years Tobacco use type: Cigarette Smoked in Last 30 Days: No Second Hand Smoke Exposure: No Use of substances other than those prescribed or required for medical reasons: No Advance Directives: Yes Advance Directives on File: Yes Advance Directives Date on File: 07/12/22 service: No Current occupational status: retired Meds Allergies Allergy/AdvReac Type Severity Reaction Status Date / Time lisinopril [LISINOPRIL] Allergy Severe ANGIOEDEMA Verified 08/30/22 10:56 Active Medications: Current Medications Acetaminophen (Acetaminophen 325 Mg Tablet) 650 mg PO Q6H PRN PRN Reason: Pain, Mild (Pain Scale 1-3) Acetaminophen (Acetaminophen 325 Mg Tablet) 650 mg PO Q6H PRN PRN Reason: Fever Or Pain Atorvastatin Calcium (Atorvastatin Calcium 20 Mg Tablet) 20 mg PO BEDTIME JIL Bisacodyl (Bisacodyl 10 Mg Supp.Rect) 10 mg IA DAILY PRN PRN Reason: Constipation Dextrose (Dextrose 50 % 25 Gm/50 Ml Syringe) 25 gm IVPUSH Q15M PRN; Protocol PRN Reason: per Hypoglycemia Standing Ord. Doxazosin Mesylate (Doxazosin Mesylate 2 Mg Tablet) 4 mg PO BEDTIME [facility]; Protocol Empagliflozin (Empagliflozin 10 Mg Tablet) 10 mg PO DAILY [facility] Last Admin: 09/21/22 09:02 Dose: 10 mg Ferrous Sulfate (Ferrous Sulfate 324 Mg Tablet.Dr) 324 mg PO BIDWM [facility] Finasteride (Finasteride 5 Mg Tablet) 5 mg PO DAILY [facility] Last Admin: 09/21/22 09:03 Dose: 5 mg Glucose (Glucose Gel 15 Gm Gel..Gram.) 15 gm PO Q15M PRN; Protocol PRN Reason: per Hypoglycemia Standing Ord. Vancomycin HCl 500 mg/ Sodium (Chloride) 110 mls @ 110 mls/hr IV Q48H [facility] Insulin Human Lispro (Insulin Lispro 100 Unit/Ml 3 Ml Vial) 0 unit SUBCUT Q6H [facility]; Protocol Last Admin: 09/21/22 07:49 Dose: Not Given Insulin Human Lispro (Insulin Lispro 100 Unit/Ml 3 Ml Vial) 0 unit SUBCUT QIDACHS [facility]; Protocol Magnesium Hydroxide (Milk Of Magnesia 30 Ml Oral.Susp) 30 ml PO DAILY PRN PRN Reason: Constipation Melatonin (Melatonin 3 Mg Tablet) 6 mg PO BEDTIME PRN PRN Reason: Insomnia Metoprolol Tartrate (Metoprolol Tartrate 12.5 Mg Halftab) 12.5 mg PO BID [facility]; Protocol Last Admin: 09/21/22 09:02 Dose: 12.5 mg Omeprazole (Omeprazole 20 Mg Capsule.Dr) 20 mg PO DAILY@629 [facility] Ondansetron HCl (Ondansetron Hcl 4 Mg/2 Ml Vial) 4 mg IVPUSH Q8H PRN PRN Reason: Nausea and Vomiting Oxycodone HCl (Oxycodone Hcl Immed Release 5 Mg Tablet) 5 mg PO Q4H PRN PRN Reason: Pain, Severe (Pain Scale 7-10) Pharmacy Consult (Consult Rx Vancomycin Dosing) 1 each MISCELLANE DAILY PRN PRN Reason: Consult order Pharmacy Consult (Consult Rx Perform Med Rec) 1 each MISCELLANE ONCE PRN PRN Reason: Consult order Sodium Bicarbonate (Sodium Bicarbonate 650 Mg Tablet) 650 mg PO TID [facility] Last Admin: 09/21/22 09:06 Dose: 650 mg Sodium Biphosphate/Sodium Phosphate (Sodium Phosphate,[place]-Dibasic 133 Ml Enema) 118 ml IA DAILY PRN PRN Reason: Constipation Sodium Chloride (0.9 % Sodium Chloride Flush 3 Ml Syringe) 3 ml IVFLUSH QSHIFT [facility] Last Admin: 09/21/22 09:03 Dose: 3 ml Vitamin D (Cholecalciferol (Vitamin D3) 25 Mcg Tablet) 50 mcg PO DAILY [facility] Last Admin: 09/21/22 09:02 Dose: 50 mcg Home Medications Medication Instructions Recorded Confirmed Last Taken Type simvastatin 40 mg tablet 40 mg PO BEDTIME 03/17/20 09/21/22 09/02/22 History blood sugar diagnostic (OneTouch #10 ea 11/11/20 09/03/22 09/03/22 History Verio test strips) pantoprazole 20 mg tablet,delayed 20 mg PO DAILY@0630 11/11/20 09/21/22 09/03/22 History release cholecalciferol (vitamin D3) 50 50 mcg PO DAILY 07/11/22 09/21/22 09/03/22 History mcg (2,000 unit) tablet empagliflozin 10 mg tablet 10 mg PO DAILY 07/11/22 09/21/22 09/03/22 History (Jardiance) acetaminophen 325 mg tablet 650 mg PO Q6H PRN Fever Or Pain 09/21/22 09/21/22 Unknown History bisacodyl 10 mg rectal suppository 10 mg IA DAILY PRN Constipation 09/21/22 09/21/22 Unknown History magnesium hydroxide 400 mg/5 mL 30 ml PO DAILY PRN Constipation 09/21/22 09/21/22 Unknown History oral suspension (Milk of Magnesia) sodium phosphates 19 gram-7 118 ml IA DAILY PRN Constipation 09/21/22 09/21/22 Unknown History gram/118 mL enema (Fleet Enema) Physical Exam Vital Signs: Vital Signs: Last Vital Signs Temp 96.9 F 09/21/22 07:39 Pulse 81 09/21/22 07:39 Resp 18 09/21/22 07:39 BP 126/64 09/21/22 07:39 Pulse Ox 96 09/21/22 07:39 O2 Del Method Room Air 09/21/22 07:39 BMI result Body Mass Index 24.3 Const: General: cooperative, healthy appearing and comfortable Orientation/consciousness: oriented to person, oriented to place and oriented to time HEENT: Head: Yes normal to inspection Neck: Neck: Yes normal visual inspection Carotids: no bruits Chest: Chest palpation & inspection: normal inspection of the chest Resp: Effort & Inspection: normal respiratory effort and able to speak in complete sentences Auscultation: clear to auscultation bilaterally, no crackles, no rales, no rhonchi and no wheezes Cardio: Rate: regular rate Rhythm: regular rhythm Heart sounds: S1 normal heart sound present and S2 normal heart sound present Bruits: no carotid bruits Peripheral pulses: Peripheral pulses 2+ throughout GI: Inspection: Yes normal to inspection Skin: Other: Right transmetatarsal amp 50% take of flap medial edge totally open boggy exposed bone Wounds: no wounds Hair: normal Neuro: General: oriented to person, oriented to place and oriented to time Cranial nerves: Yes CN's II-XII intact bilaterally and Yes Normal hearing present Cognition (Neuro): normal cognition Motor exam (neuro): 5/5 motor strength present throughout Extrem: Other: venous exam: No significant superficial varicosities or spider telangiectasias, minimal edema General: No clubbing, No cyanosis and No edema Psych: Appearance: grossly normal Mental Status: mental status grossly normal Speech and movement: Normal speech and movement present Results Labs 09/21/22 05:58 09/21/22 05:58 Labs: Abnormal lab results 09/20/22 09/20/22 09/20/22 Range/Units 23:12 23:25 23:25 RBC 3.30 L (4.60-5.80) X10*6/uL Hgb 9.1 L (14.0-18.0) g/dl Hct 28.7 L (42.0-52.0) % Plt Count 158 L D (160-400) X10*3/uL Immature Gran % (Auto) 0.6 H (0.0-0.4) % Neut % (Auto) 89.7 H (45-73) % Lymph % (Auto) 4.9 L (20-40) % Lymph # (Auto) 0.5 L (1.2-4.9) X10*3/uL Abs Immat Gran (auto) 0.06 H (0.00-0.03) X10*3/uL Absolute Neuts (auto) 8.8 H (2.0-8.3) x10*3/uL Sodium 133 L (135-145) mmol/L Carbon Dioxide 19 L (22-29) mmol/L BUN 83 H (9-16) mg/dL Creatinine 3.90 H (0.5-1.4) mg/dL POC Glucose 329 H (60-115) mg/dL Random Glucose 405 H* (60-115) mg/dL Total Bilirubin 1.1 H (0.0-1.0) mg/dL Alkaline Phosphatase 148 H (39-117) U/L Albumin 2.7 L (3.5-5.0) g/dL 09/21/22 09/21/22 09/21/22 Range/Units 01:14 05:58 05:58 RBC 3.01 L (4.60-5.80) X10*6/uL Hgb 8.5 L (14.0-18.0) g/dl Hct 26.7 L (42.0-52.0) % Plt Count (160-400) X10*3/uL Immature Gran % (Auto) 0.6 H (0.0-0.4) % Neut % (Auto) 78.0 H (45-73) % Lymph % (Auto) 8.7 L (20-40) % Lymph # (Auto) 0.6 L (1.2-4.9) X10*3/uL Abs Immat Gran (auto) 0.04 H (0.00-0.03) X10*3/uL Absolute Neuts (auto) (2.0-8.3) x10*3/uL Sodium (135-145) mmol/L Carbon Dioxide 19 L (22-29) mmol/L BUN 76 H (9-16) mg/dL Creatinine 3.30 H (0.5-1.4) mg/dL POC Glucose 309 H (60-115) mg/dL Random Glucose 179 H (60-115) mg/dL Total Bilirubin (0.0-1.0) mg/dL Alkaline Phosphatase (39-117) U/L Albumin (3.5-5.0) g/dL 09/21/22 Range/Units 07:23 RBC (4.60-5.80) X10*6/uL Hgb (14.0-18.0) g/dl Hct (42.0-52.0) % Plt Count (160-400) X10*3/uL Immature Gran % (Auto) (0.0-0.4) % Neut % (Auto) (45-73) % Lymph % (Auto) (20-40) % Lymph # (Auto) (1.2-4.9) X10*3/uL Abs Immat Gran (auto) (0.00-0.03) X10*3/uL Absolute Neuts (auto) (2.0-8.3) x10*3/uL Sodium (135-145) mmol/L Carbon Dioxide (22-29) mmol/L BUN (9-16) mg/dL Creatinine (0.5-1.4) mg/dL POC Glucose 170 H (60-115) mg/dL Random Glucose (60-115) mg/dL Total Bilirubin (0.0-1.0) mg/dL Alkaline Phosphatase (39-117) U/L Albumin (3.5-5.0) g/dL Short CBC 07/06/23 07/07/23 Range/Units 23:25 05:58 WBC 9.8 6.9 (4.8-10.8) X10*3/uL Hgb 9.1 L 8.5 L (14.0-18.0) g/dl Hct 28.7 L 26.7 L (42.0-52.0) % Plt Count 158 L D 167 (160-400) X10*3/uL BMP 09/20/22 09/21/22 23:25 05:58 Sodium 133 L 139 Potassium 4.4 3.4 D Chloride 101 108 Carbon Dioxide 19 L 19 L BUN 83 H 76 H Creatinine 3.90 H 3.30 H Calcium 9.8 D 8.8 D Liver Function 09/20/22 Range/Units 23:25 Total Bilirubin 1.1 H (0.0-1.0) mg/dL AST 33 (5-37) U/L ALT 15 (0-40) U/L Alkaline Phosphatase 148 H (39-117) U/L Albumin 2.7 L (3.5-5.0) g/dL All other labs normal. Assessment and Plan (1) PAD (peripheral artery disease): Status: Acute Plan In short patient has a nonhealing transmetatarsal amputation of the right foot. He will require a right below-knee amputation. Risks benefits complications of the procedure were discussed in detail with the patient. He agreed and would like to move forward. In addition I did make a phone call and discuss this entire situation with his Faye over the telephone. We will schedule him for Saturday. Thank you for allowing us to participate in his care. If there are any questions or concerns please do not hesitate to contact us. Time Spent With Patient Time: Total time managing care of this patient today ____ minutes. Procedures Date of Service Date of Service: 09/21/22
--- NOTE | 2022-09-21 11:21 | MHC.CM.PN ---
WATKINS 09/21. Pt on observation with non-healing wound on foot. Per MD rounds, pt will need surgical consult and may be getting an amputation on Sunday 09/24. Pt was previously at [facility]) for STR. Pt had prior hospitalization 09/03-09/19 and was D/C from here to [facility]. This CM spoke with pts /HCP Faye ([phone]) who states pt does not have a bed hold for [facility]. Pts Faye states that she brought her to [place] for his CA yesterday and they are recommending 6 weeks of daily radiation treatment which he can receive at [facility] ([facility]) since they are an affiliated association. Faye would possibly like pt to go to [facility] for STR since is is closer to [facility]. Faye can transport her . PCP: Gene Wagner vax: x [phone]
[2022-09-21 11:23] LABS: Glucose, Whole Blood 202 mg/dL (60-115)
[2022-09-21] MEDS: Insulin Lispro 100 UNIT/ML 3 ML VIAL SUBCUT ×3 (12:49→20:47)
--- NOTE | 2022-09-21 14:10 | MHC.CLN ---
NUTRITION CONSULT FOR SKIN. INCREASING DIETARY KCALS TO DIABETIC 2200 KCAL. CONTINUES WITH ELEVATED BUN AND Cr DUE TO CKD. NO PROTEIN SUPPLEMENT AT THIS TIME DUE TO KIDNEY FUNCTION. DISCHARGE 09/19 FROM [facility] [place] INTAKE USUALLY 50-100% DURING ADMISSION. INTAKE DOES NOT SUPPORT SIGNIFICANT WEIGHT LOSS. SKIN WITH NON HEALING SURGICAL WOUND TO RIGHT FOOT AND UNSTAGEABLE AREA TO LEFT HEEL. FOLLOW FOR INTAKE, LABS, AND WOUND HEALING. SEE CLINICAL NUTRITION ASSESSMENT 09/21/22.
[2022-09-21] MEDS: Ferrous Sulfate 324 MG TABLET.DR PO (16:08)
[2022-09-21] MEDS: Acetaminophen 325 MG TABLET 650 MG PO (16:31)
[2022-09-21] MEDS: Atorvastatin Calcium 20 MG TABLET PO (20:48)
[2022-09-21] MEDS: Doxazosin Mesylate 2 MG TABLET 4 MG PO (20:48)
[2022-09-22 03:32] VITALS: BP 147/67; PULSE 97; RESP 18; TEMP 36.6; O2SAT 97
[2022-09-22] MEDS: Omeprazole 20 MG CAPSULE.DR PO (06:17)
[2022-09-22 07:16] VITALS: BP 127/64; PULSE 96; RESP 18; TEMP 36.4; O2SAT 97
[2022-09-22] MEDS: Empagliflozin 10 MG TABLET PO (08:00)
[2022-09-22] MEDS: Metoprolol Tartrate 12.5 MG HALFTAB PO ×2 (08:00→21:41)
[2022-09-22] MEDS: Finasteride 5 MG TABLET PO (08:00)
[2022-09-22] MEDS: Cholecalciferol (Vitamin D3) 25 MCG TABLET 50 MCG PO (08:00)
[2022-09-22] MEDS: Insulin Lispro 100 UNIT/ML 3 ML VIAL SUBCUT ×4 (08:00→21:41)
[2022-09-22] MEDS: Ferrous Sulfate 324 MG TABLET.DR PO ×2 (08:00→16:37)
[2022-09-22] MEDS: Sodium Bicarbonate 650 MG TABLET PO ×3 (08:00→21:40)
[2022-09-22 14:54] VITALS: BP 119/58; PULSE 91; RESP 20; TEMP 36.7; O2SAT 98
[2022-09-22 19:22] VITALS: BP 147/71; PULSE 100; RESP 17; TEMP 36.4; O2SAT 98
[2022-09-22] MEDS: Doxazosin Mesylate 2 MG TABLET 4 MG PO (21:41)
[2022-09-22] MEDS: Atorvastatin Calcium 20 MG TABLET PO (21:41)
[2022-09-23 03:38] VITALS: BP 128/66; PULSE 90; RESP 16; TEMP 36.3; O2SAT 96
[2022-09-23] MEDS: Omeprazole 20 MG CAPSULE.DR PO (05:56)
[2022-09-23 07:11] VITALS: BP 117/61; PULSE 97; RESP 18; TEMP 36.1; O2SAT 98
[2022-09-23 07:15] LABS: Creatinine Clr Calc Pharmacy 20.1; Estimated Glomerular Filt Rate 21
[2022-09-23 07:22] LABS: Vancomycin Random 25.4 mcg/mL (15-20)
--- NOTE | 2022-09-23 07:38 | HE.PHANOTE ---
vancomycin addendum patient only got one dose of 1750 mg on 09/21, level came back at 25.4. order put on hold, will recheck level on 09/24 to see where level is. Continue to monitor renal function, patient will likely need to be dosed by level
[2022-09-23] MEDS: Insulin Lispro 100 UNIT/ML 3 ML VIAL SUBCUT ×4 (07:52→20:35)
[2022-09-23] MEDS: Sodium Bicarbonate 650 MG TABLET PO ×3 (07:53→20:34)
[2022-09-23] MEDS: Cholecalciferol (Vitamin D3) 25 MCG TABLET 50 MCG PO (07:53)
[2022-09-23] MEDS: Metoprolol Tartrate 12.5 MG HALFTAB PO ×2 (07:53→20:34)
[2022-09-23] MEDS: Ferrous Sulfate 324 MG TABLET.DR PO ×2 (07:53→16:45)
[2022-09-23] MEDS: Empagliflozin 10 MG TABLET PO (07:53)
[2022-09-23] MEDS: Finasteride 5 MG TABLET PO (07:54)
--- NOTE | 2022-09-23 08:36 | HO.PM.IMPN ---
Subjective Subjective Date of Service: 09/23/22 Interval History: f/u on infected surgical ampuation site No new issues, BKA planned for tomorrow Physical Exam Vital Signs: Vital Signs: Last Vital Signs Temp 97 F 09/23/22 07:11 Pulse 97 09/23/22 07:11 Resp 18 09/23/22 07:11 BP 117/61 09/23/22 07:11 Pulse Ox 98 09/23/22 07:11 O2 Del Method Room Air 09/23/22 07:11 BMI result Body Mass Index 24.3 Const: Other: General: AO X 3, no acute distress Resp: CTA bilateral CVS: S1,S2,RRR GI: +BS, NT, no distention Skin: dressing intact Neuro: motor grossly intact Psych: appropriate affect Objective Data Active Medications Acetaminophen (Acetaminophen 325 Mg Tablet) 650 mg PO Q6H PRN PRN Reason: Pain, Mild (Pain Scale 1-3) Last Admin: 09/21/22 16:31 Dose: 650 mg Documented By: RISHI Acetaminophen (Acetaminophen 325 Mg Tablet) 650 mg PO Q6H PRN PRN Reason: Fever Or Pain Atorvastatin Calcium (Atorvastatin Calcium 20 Mg Tablet) 20 mg PO BEDTIME [facility] Last Admin: 09/22/22 21:41 Dose: 20 mg Documented By: CASANDRA Bisacodyl (Bisacodyl 10 Mg Supp.Rect) 10 mg GA DAILY PRN PRN Reason: Constipation Dextrose (Dextrose 50 % 25 Gm/50 Ml Syringe) 25 gm IVPUSH Q15M PRN; Protocol PRN Reason: per Hypoglycemia Standing Ord. Doxazosin Mesylate (Doxazosin Mesylate 2 Mg Tablet) 4 mg PO BEDTIME [facility]; Protocol Last Admin: 09/22/22 21:41 Dose: 4 mg Documented By: CASANDRA Empagliflozin (Empagliflozin 10 Mg Tablet) 10 mg PO DAILY [facility] Last Admin: 09/23/22 07:53 Dose: 10 mg Documented By: MICHAELA Ferrous Sulfate (Ferrous Sulfate 324 Mg Tablet.) 324 mg PO BIDWM [facility] Last Admin: 09/23/22 07:53 Dose: 324 mg Documented By: MICHAELA Finasteride (Finasteride 5 Mg Tablet) 5 mg PO DAILY [facility] Last Admin: 09/23/22 07:54 Dose: 5 mg Documented By: HO.GRAZIC Glucose (Glucose Gel 15 Gm Gel..Gram.) 15 gm PO Q15M PRN; Protocol PRN Reason: per Hypoglycemia Standing Ord. Vancomycin HCl 500 mg/ Sodium (Chloride) 110 mls @ 110 mls/hr IV Q48H [facility] Insulin Human Lispro (Insulin Lispro 100 Unit/Ml 3 Ml Vial) 0 unit SUBCUT QIDACHS [facility]; Protocol Last Admin: 09/23/22 07:52 Dose: 6 unit Documented By: MICHAELA Magnesium Hydroxide (Milk Of Magnesia 30 Ml Oral.Susp) 30 ml PO DAILY PRN PRN Reason: Constipation Melatonin (Melatonin 3 Mg Tablet) 6 mg PO BEDTIME PRN PRN Reason: Insomnia Metoprolol Tartrate (Metoprolol Tartrate 12.5 Mg Halftab) 12.5 mg PO BID [facility]; Protocol Last Admin: 09/23/22 07:53 Dose: 12.5 mg Documented By: MICHAELA Omeprazole (Omeprazole 20 Mg Capsule.Dr) 20 mg PO DAILY@0630 [facility] Last Admin: 09/23/22 05:56 Dose: 20 mg Documented By: CASANDRA Ondansetron HCl (Ondansetron Hcl 4 Mg/2 Ml Vial) 4 mg IVPUSH Q8H PRN PRN Reason: Nausea and Vomiting Oxycodone HCl (Oxycodone Hcl Immed Release 5 Mg Tablet) 5 mg PO Q4H PRN PRN Reason: Pain, Severe (Pain Scale 7-10) Pharmacy Consult (Consult Rx Vancomycin Dosing) 1 each MISCELLANE DAILY PRN PRN Reason: Consult order Pharmacy Consult (Consult Rx Perform Med Rec) 1 each MISCELLANE ONCE PRN PRN Reason: Consult order Sodium Bicarbonate (Sodium Bicarbonate 650 Mg Tablet) 650 mg PO TID [facility] Last Admin: 09/23/22 07:53 Dose: 650 mg Documented By: MICHAELA Sodium Biphosphate/Sodium Phosphate (Sodium Phosphate,Mitchell-Dibasic 133 Ml Enema) 118 ml GA DAILY PRN PRN Reason: Constipation Sodium Chloride (0.9 % Sodium Chloride Flush 3 Ml Syringe) 3 ml IVFLUSH QSHIFT [facility] Last Admin: 09/23/22 07:53 Dose: 3 ml Documented By: MICHAELA Vitamin D (Cholecalciferol (Vitamin D3) 25 Mcg Tablet) 50 mcg PO DAILY [facility] Last Admin: 09/23/22 07:53 Dose: 50 mcg Documented By: MICHAELA Labs 09/21/22 05:58 09/23/22 06:51 Labs: Laboratory Results - last 24 hr 09/22/22 09/22/22 09/22/22 10:48 16:33 20:35 Estim Creat Clear Calc Estimated GFR POC Glucose 238 H 256 H 314 H Random Vancomycin Blood Type Antibody Screen 09/23/22 09/23/22 09/23/22 06:51 06:51 06:51 Estim Creat Clear Calc 20.1 Estimated GFR 21 POC Glucose Random Vancomycin 25.4 H* Blood Type O Positive Antibody Screen NEGATIVE 09/23/22 07:09 Estim Creat Clear Calc Estimated GFR POC Glucose 255 H Random Vancomycin Blood Type Antibody Screen Microbiology Microbiology Results: Microbiology 09/21/22 00:25 Blood Culture - Preliminary Blood - Venous Prelim: GPC Gram Stain only 09/21/22 00:19 Blood Culture - Preliminary Blood - Venous Prelim: GPC Gram Stain only Assessment and Plan (1) Diabetes type 2, controlled: Status: Acute (2) Amputation of right great toe: Status: Acute (3) Cellulitis of foot, right: Status: Acute Plan 81 years old male with PMH of CKD, CHF, recent OM, DM, HTN , PAD among others admitted on 09/03/22 to Vascular surgery service by Dr. Land and underwent elective Right great toe ampuation due to Nonhealing diabetic foot ulcer, followed by Right TMA on 09/13/22, and was discharge on 09/19 and went to the wound clinic 09/20 and noted to have drainage, ordor and concern for infection and sent to the ED and admitted again. Right great toe diabetic foot ulcer s/p right toe ampuation on 09/03, and was not healing well with possible infection so underwent right TMA on 09/13/22 and not healing well. Will have BKA on 09/24/22, IV Abx (Vanco) in the interim, pharmacy to adjust dose based on level Acute on Chronic anemia 2/2 CKD 3--Stable DMII--Jardiance and SSI Hypertension--controlled on Metoprolol Need for inpt: Infected amputated site, awaiting BKA DVT prophylaxis heparin Need for inpatient: infected wound need IV Abx, and ampuataion . Time Spent With Patient Time: Total time managing care of this patient today ____ minutes. Quality Stroke Does the patient have a stroke diagnosis?: No VTE Prior VTE?: No VTE Risk Level:: Medical - moderate - high VTE Device Contraindication: Treatment Not Indicated VTE Drug Contraindication: Treatment Not Indicated
[2022-09-23 15:35] VITALS: BP 121/60; PULSE 86; RESP 18; TEMP 35.9; O2SAT 97
[2022-09-23 19:13] VITALS: BP 135/65; PULSE 96; RESP 18; TEMP 36.6; O2SAT 97
[2022-09-23] MEDS: Doxazosin Mesylate 2 MG TABLET 4 MG PO (20:34)
[2022-09-23] MEDS: Atorvastatin Calcium 20 MG TABLET PO (20:34)
[2022-09-24] VITALS (14 sets, daily range): BP systolic 91–134; BP diastolic 52–68; PULSE 75–99; RESP 16–21; TEMP 36–36.7; O2SAT 95–99
[2022-09-24] MEDS: Omeprazole 20 MG CAPSULE.DR PO (06:09)
[2022-09-24 06:20] LABS: Creatinine Clr Calc Pharmacy 21.1; Estimated Glomerular Filt Rate 22
[2022-09-24] MEDS: Metoprolol Tartrate 12.5 MG HALFTAB PO ×2 (08:41→21:14)
--- NOTE | 2022-09-24 08:52 | MHC.SHP ---
Pre-Procedural Eval Section A Date of Service: 09/24/22 The patient is an INPATIENT: No Changes since office visit: Yes Patient answered all questions The History & Physical has been completed within 30 days and I have reviewed it.: Yes Section B Chief Complaint: Non healing wound Allergies: Allergies Allergy/AdvReac Type Severity Reaction Status Date / Time lisinopril [LISINOPRIL] Allergy Severe ANGIOEDEMA Verified 08/30/22 10:56 Plan I have reviewed the history and physical and performed a pertinent physical examination on my patient. No changes have occurred unless specified. Time Spent With Patient Time: Total time managing care of this patient today ____ minutes.
--- NOTE | 2022-09-24 08:53 | HO.PM.IMPN ---
Subjective Subjective Date of Service: 09/24/22 Interval History: f/u on infected surgical ampuation site No new issues, BKA planned for today, no pain Physical Exam Vital Signs: Vital Signs: Last Vital Signs Temp 97.4 F 09/24/22 07:03 Pulse 99 09/24/22 07:03 Resp 16 09/24/22 07:03 BP 117/62 09/24/22 07:03 Pulse Ox 96 09/24/22 07:03 O2 Del Method Room Air 09/24/22 07:03 BMI result Body Mass Index 24.3 Const: Other: General: AO X 3, no acute distress Resp: CTA bilateral CVS: S1,S2,RRR GI: +BS, NT, no distention Skin: wound dressing intact Neuro: motor grossly intact Psych: appropriate affect Objective Data Active Medications Acetaminophen (Acetaminophen 325 Mg Tablet) 650 mg PO Q6H PRN PRN Reason: Pain, Mild (Pain Scale 1-3) Last Admin: 09/21/22 16:31 Dose: 650 mg Documented By: RISHI Acetaminophen (Acetaminophen 325 Mg Tablet) 650 mg PO Q6H PRN PRN Reason: Fever Or Pain Atorvastatin Calcium (Atorvastatin Calcium 20 Mg Tablet) 20 mg PO BEDTIME [facility] Last Admin: 09/23/22 20:34 Dose: 20 mg Documented By: MCKINLEY Bisacodyl (Bisacodyl 10 Mg Supp.Rect) 10 mg ID DAILY PRN PRN Reason: Constipation Dextrose (Dextrose 50 % 25 Gm/50 Ml Syringe) 25 gm IVPUSH Q15M PRN; Protocol PRN Reason: per Hypoglycemia Standing Ord. Doxazosin Mesylate (Doxazosin Mesylate 2 Mg Tablet) 4 mg PO BEDTIME [facility]; Protocol Last Admin: 09/23/22 20:34 Dose: 4 mg Documented By: MCKINLEY Empagliflozin (Empagliflozin 10 Mg Tablet) 10 mg PO DAILY [facility] Last Admin: 09/23/22 07:53 Dose: 10 mg Documented By: MICHAELA Ferrous Sulfate (Ferrous Sulfate 324 Mg Tablet.) 324 mg PO BIDWM [facility] Last Admin: 09/23/22 16:45 Dose: 324 mg Documented By: MICHAELA Finasteride (Finasteride 5 Mg Tablet) 5 mg PO DAILY [facility] Last Admin: 09/23/22 07:54 Dose: 5 mg Documented By: MICHAELA Glucose (Glucose Gel 15 Gm Gel..Gram.) 15 gm PO Q15M PRN; Protocol PRN Reason: per Hypoglycemia Standing Ord. Heparin Sodium (Porcine) (Heparin Sodium,Porcine 5,000 Unit/Ml Vial) 5,000 unit SUBCUT Q12H [facility] Last Admin: 09/24/22 08:44 Dose: Not Given Documented By: TERRELL Non-Admin Reason: preop Vancomycin HCl 500 mg/ Sodium (Chloride) 110 mls @ 110 mls/hr IV Q48H [facility] Insulin Human Lispro (Insulin Lispro 100 Unit/Ml 3 Ml Vial) 0 unit SUBCUT QIDACHS [facility]; Protocol Last Admin: 09/24/22 08:40 Dose: Not Given Documented By: TERRELL Non-Admin Reason: NPO Magnesium Hydroxide (Milk Of Magnesia 30 Ml Oral.Susp) 30 ml PO DAILY PRN PRN Reason: Constipation Melatonin (Melatonin 3 Mg Tablet) 6 mg PO BEDTIME PRN PRN Reason: Insomnia Metoprolol Tartrate (Metoprolol Tartrate 12.5 Mg Halftab) 12.5 mg PO BID [facility]; Protocol Last Admin: 09/24/22 08:41 Dose: 12.5 mg Documented By: TERRELL Omeprazole (Omeprazole 20 Mg Capsule.Dr) 20 mg PO DAILY@0630 [facility] Last Admin: 09/24/22 06:09 Dose: 20 mg Documented By: MCKINLEY Ondansetron HCl (Ondansetron Hcl 4 Mg/2 Ml Vial) 4 mg IVPUSH Q8H PRN PRN Reason: Nausea and Vomiting Oxycodone HCl (Oxycodone Hcl Immed Release 5 Mg Tablet) 5 mg PO Q4H PRN PRN Reason: Pain, Severe (Pain Scale 7-10) Pharmacy Consult (Consult Rx Vancomycin Dosing) 1 each MISCELLANE DAILY PRN PRN Reason: Consult order Pharmacy Consult (Consult Rx Perform Med Rec) 1 each MISCELLANE ONCE PRN PRN Reason: Consult order Sodium Bicarbonate (Sodium Bicarbonate 650 Mg Tablet) 650 mg PO TID [facility] Last Admin: 09/23/22 20:34 Dose: 650 mg Documented By: MCKINLEY Sodium Biphosphate/Sodium Phosphate (Sodium Phosphate,[place]-Dibasic 133 Ml Enema) 118 ml ID DAILY PRN PRN Reason: Constipation Sodium Chloride (0.9 % Sodium Chloride Flush 3 Ml Syringe) 3 ml IVFLUSH QSHIFT [facility] Last Admin: 09/23/22 20:37 Dose: 3 ml Documented By: MCKINLEY Vitamin D (Cholecalciferol (Vitamin D3) 25 Mcg Tablet) 50 mcg PO DAILY [facility] Last Admin: 09/23/22 07:53 Dose: 50 mcg Documented By: MICHAELA Labs 09/21/22 05:58 09/24/22 05:43 Labs: Laboratory Results - last 24 hr 09/23/22 09/23/22 09/23/22 11:11 16:06 20:12 Estim Creat Clear Calc Estimated GFR POC Glucose 270 H 258 H 253 H Random Vancomycin 09/24/22 09/24/22 09/24/22 05:42 05:43 07:03 Estim Creat Clear Calc 21.1 Estimated GFR 22 POC Glucose 218 H Random Vancomycin 23.5 H Microbiology Microbiology Results: Microbiology 09/21/22 00:25 Blood Culture - Preliminary Blood - Venous Gram positive cocci 09/21/22 00:19 Blood Culture - Preliminary Blood - Venous Gram positive cocci Assessment and Plan (1) Diabetes type 2, controlled: Status: Acute (2) Amputation of right great toe: Status: Acute (3) Cellulitis of foot, right: Status: Acute Plan 81 years old male with PMH of CKD, CHF, recent OM, DM, HTN , PAD among others admitted on 09/03/22 to Vascular surgery service by Dr. Land and underwent elective Right great toe ampuation due to Nonhealing diabetic foot ulcer, followed by Right TMA on 09/13/22, and was discharge on 09/19 and went to the wound clinic 09/20 and noted to have drainage, ordor and concern for infection and sent to the ED and admitted again. Right great toe diabetic foot ulcer s/p right toe ampuation on 09/03, and was not healing well with possible infection so underwent right TMA on 09/13/22 and not healing and looks infected after discharge, readmitted and Will have BKA today 09/24/22, IV Abx (Vanco) in the interim, pharmacy to adjust dose based on level Acute on Chronic anemia 2/2 CKD 3--Stable DMII--Jardiance and SSI Hypertension--controlled on Metoprolol Need for inpt: Infected amputated site, awaiting BKA DVT prophylaxis heparin Need for inpatient: infected wound need IV Abx, and need amputation . Time Spent With Patient Time: Total time managing care of this patient today ____ minutes. Quality Stroke Does the patient have a stroke diagnosis?: No VTE Prior VTE?: No VTE Risk Level:: Medical - moderate - high VTE Device Contraindication: Treatment Not Indicated VTE Drug Contraindication: Treatment Not Indicated
--- NOTE | 2022-09-24 11:26 | HO.ANESPROP2 ---
HPI - Anesthesia Eval Consult details Narrative: sevee PVD, bladder Ca , low hct, purplish discolored toungue, soiled diaper with continued bloody leak of urine, paced rythm , somnoloscent at base line . wakes up with tactile and loud verbal commands PMFSH Active Problems Active Problems: All Active Problems (Updated 09/21/22 @ 01:26 by Brenda Holley MD) Dehiscence of wound (Acute) Cellulitis (Acute) Acute on chronic renal failure (Acute) Nonhealing nonsurgical wound (Acute) Bladder cancer (Acute) CKD (chronic kidney disease) (Acute) Status post transmetatarsal amputation of right foot (Acute) Hypertension (Acute) Diabetes type 2, controlled (Acute) Hypotension (Acute) Amputation of right great toe (Acute) Acute on chronic blood loss anemia (Acute) Cellulitis (Acute) DEON (acute kidney injury) (Acute) BPH loc w urin obs/LUTS (Acute) Hydronephrosis (Acute) Iron deficiency anemia (Acute) Heme positive stool (Acute) Cao catheter problem (Acute) Encounter for interrogation of cardiac pacemaker (Acute) Symptomatic bradycardia (Acute) Mitral annular calcification (Acute) Diabetic foot ulcer (Acute) Cellulitis of foot, right (Acute) Diabetic osteomyelitis (Acute) Metabolic acidosis (Acute) Bladder mass (Acute) Anemia (Acute) Acute kidney injury superimposed on CKD (Acute) Ulcer of right 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 (Acute) PAD (peripheral artery disease) (Acute) Infection of right foot (Acute) Acute osteomyelitis (Acute) Heart block (Acute) Past Medical History Medical History Acute osteomyelitis Back pain CKD (chronic kidney disease) stage 3, GFR 30-59 ml/min Congestive heart failure with LV diastolic dysfunction, NYHA class 3 Decubitus ulcer, heel Diabetes mellitus Gram-negative bacteremia H/O cardiac pacemaker Heart block History of COVID-19 Hyperlipidemia Hypertension Infection of right foot Iron deficiency anemia PAD (peripheral artery disease) Type 2 diabetes mellitus with unspecified complications Ulcer of left heel Ulcer of right 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 Urinary retention Family History Family History Brother Testicular cancer Family history of problems with anesthesia: No Surgical History Surgical History History of atherectomy History of back surgery History of esophagogastroduodenoscopy History of left hip replacement Hx of cataract extraction Hx of colonoscopy History of Problems with Anesthesia: No Social History Social History Household Members: Spouse Household Members Other:: 2 Housing: House Do you presently have visiting nurse or other home services: No Alcohol intake: never Patient Tobacco Use Status: Former Tobacco user Quit Date: 15 years Tobacco use type: Cigarette Smoked in Last 30 Days: No Second Hand Smoke Exposure: No Use of substances other than those prescribed or required for medical reasons: No Currently Displaying Signs/Symptoms of Drug Intoxication Withdrawal: No Have you been hit, kicked, punched, or otherwise hurt by someone within the past year? If so, by whom?: No Do you feel safe in your current relationship?: No Is there a partner from a previous relationship who is making you feel unsafe now?: No Are you made to feel afraid or neglected: No Are you DNR?: No Advance Directives: Yes Advance Directives Information Provided: No Advance Directives on File: Yes Advance Directives Date on File: 07/12/22 Do you have thoughts of harming others: None Do you have a plan to hurt others: No Plan Recently lost weight without trying: No Eating poorly because of decreased appetite: No Nutrition Risks: No Nutritional Risk Poor oral hygiene: No service: No Current occupational status: retired Meds Allergies Allergy/AdvReac Type Severity Reaction Status Date / Time lisinopril [LISINOPRIL] Allergy Severe ANGIOEDEMA Verified 08/30/22 10:56 Active Medications: Current Medications Acetaminophen (Acetaminophen 325 Mg Tablet) 650 mg PO Q6H PRN PRN Reason: Pain, Mild (Pain Scale 1-3) Last Admin: 09/21/22 16:31 Dose: 650 mg Acetaminophen (Acetaminophen 325 Mg Tablet) 650 mg PO Q6H PRN PRN Reason: Fever Or Pain Atorvastatin Calcium (Atorvastatin Calcium 20 Mg Tablet) 20 mg PO BEDTIME JIL Last Admin: 09/23/22 20:34 Dose: 20 mg Bisacodyl (Bisacodyl 10 Mg Supp.Rect) 10 mg KS DAILY PRN PRN Reason: Constipation Dextrose (Dextrose 50 % 25 Gm/50 Ml Syringe) 25 gm IVPUSH Q15M PRN; Protocol PRN Reason: per Hypoglycemia Standing Ord. Doxazosin Mesylate (Doxazosin Mesylate 2 Mg Tablet) 4 mg PO BEDTIME [facility]; Protocol Last Admin: 09/23/22 20:34 Dose: 4 mg Empagliflozin (Empagliflozin 10 Mg Tablet) 10 mg PO DAILY [facility] Last Admin: 09/23/22 07:53 Dose: 10 mg Ferrous Sulfate (Ferrous Sulfate 324 Mg Tablet.) 324 mg PO BIDWM [facility] Last Admin: 09/23/22 16:45 Dose: 324 mg Finasteride (Finasteride 5 Mg Tablet) 5 mg PO DAILY [facility] Last Admin: 09/23/22 07:54 Dose: 5 mg Glucose (Glucose Gel 15 Gm Gel..Gram.) 15 gm PO Q15M PRN; Protocol PRN Reason: per Hypoglycemia Standing Ord. Heparin Sodium (Porcine) (Heparin Sodium,Porcine 5,000 Unit/Ml Vial) 5,000 unit SUBCUT Q12H [facility] Last Admin: 09/24/22 08:44 Dose: Not Given Vancomycin HCl 500 mg/ Sodium (Chloride) 110 mls @ 110 mls/hr IV Q48H [facility] Insulin Human Lispro (Insulin Lispro 100 Unit/Ml 3 Ml Vial) 0 unit SUBCUT QIDACHS [facility]; Protocol Last Admin: 09/24/22 08:40 Dose: Not Given Magnesium Hydroxide (Milk Of Magnesia 30 Ml Oral.Susp) 30 ml PO DAILY PRN PRN Reason: Constipation Melatonin (Melatonin 3 Mg Tablet) 6 mg PO BEDTIME PRN PRN Reason: Insomnia Metoprolol Tartrate (Metoprolol Tartrate 12.5 Mg Halftab) 12.5 mg PO BID [facility]; Protocol Last Admin: 09/24/22 08:41 Dose: 12.5 mg Omeprazole (Omeprazole 20 Mg Capsule.) 20 mg PO DAILY@0630 [facility] Last Admin: 09/24/22 06:09 Dose: 20 mg Ondansetron HCl (Ondansetron Hcl 4 Mg/2 Ml Vial) 4 mg IVPUSH Q8H PRN PRN Reason: Nausea and Vomiting Oxycodone HCl (Oxycodone Hcl Immed Release 5 Mg Tablet) 5 mg PO Q4H PRN PRN Reason: Pain, Severe (Pain Scale 7-10) Pharmacy Consult (Consult Rx Vancomycin Dosing) 1 each MISCELLANE DAILY PRN PRN Reason: Consult order Pharmacy Consult (Consult Rx Perform Med Rec) 1 each MISCELLANE ONCE PRN PRN Reason: Consult order Sodium Bicarbonate (Sodium Bicarbonate 650 Mg Tablet) 650 mg PO TID [facility] Last Admin: 09/23/22 20:34 Dose: 650 mg Sodium Biphosphate/Sodium Phosphate (Sodium Phosphate,[place]-Dibasic 133 Ml Enema) 118 ml KS DAILY PRN PRN Reason: Constipation Sodium Chloride (0.9 % Sodium Chloride Flush 3 Ml Syringe) 3 ml IVFLUSH QSHIFT [facility] Last Admin: 09/23/22 20:37 Dose: 3 ml Vitamin D (Cholecalciferol (Vitamin D3) 25 Mcg Tablet) 50 mcg PO DAILY [facility] Last Admin: 09/23/22 07:53 Dose: 50 mcg Home Medications Medication Instructions Recorded Confirmed Last Taken Type simvastatin 40 mg tablet 40 mg PO BEDTIME 03/17/20 09/21/22 09/02/22 History blood sugar diagnostic (OneTouch #10 ea 11/11/20 09/03/22 09/03/22 History Verio test strips) pantoprazole 20 mg tablet,delayed 20 mg PO DAILY@0630 11/11/20 09/21/22 09/03/22 History release cholecalciferol (vitamin D3) 50 50 mcg PO DAILY 07/11/22 09/21/22 09/03/22 History mcg (2,000 unit) tablet empagliflozin 10 mg tablet 10 mg PO DAILY 07/11/22 09/21/22 09/03/22 History (Jardiance) acetaminophen 325 mg tablet 650 mg PO Q6H PRN Fever Or Pain 09/21/22 09/21/22 Unknown History bisacodyl 10 mg rectal suppository 10 mg KS DAILY PRN Constipation 09/21/22 09/21/22 Unknown History magnesium hydroxide 400 mg/5 mL 30 ml PO DAILY PRN Constipation 09/21/22 09/21/22 Unknown History oral suspension (Milk of Magnesia) sodium phosphates 19 gram-7 118 ml KS DAILY PRN Constipation 09/21/22 09/21/22 Unknown History gram/118 mL enema (Fleet Enema) Exam Exam Date and Time: September 24, 2022 112 Height,Weight and Vital Signs: Height 5 ft 9 in Weight 74.8 kg Last Vital Signs Temp 96.9 F 09/24/22 10:09 Pulse 75 09/24/22 10:09 Resp 16 09/24/22 10:09 BP 103/57 L 09/24/22 10:09 Pulse Ox 98 09/24/22 10:09 O2 Del Method Room Air 09/24/22 10:09 Pertinent Lab Results Pertinent Lab Results: Laboratory Tests 09/20/22 09/20/22 09/20/22 23:12 23:25 23:25 WBC 9.8 RBC 3.30 L Hgb 9.1 L Hct 28.7 L MCV 87.0 MCH 27.6 MCHC 31.7 RDW 15.8 Plt Count 158 L D MPV 11.6 Immature Gran % (Auto) 0.6 H Neut % (Auto) 89.7 H Lymph % (Auto) 4.9 L [place] % (Auto) 4.2 Eos % (Auto) 0.4 Baso % (Auto) 0.2 Lymph # (Auto) 0.5 L [place] # (Auto) 0.4 Eos # (Auto) 0.0 Baso # (Auto) 0.0 Abs Immat Gran (auto) 0.06 H Absolute Neuts (auto) 8.8 H Absolute Nucleated RBC 0.000 Nucleated RBC % (auto) 0.0 Sodium 133 L Potassium 4.4 Chloride 101 Carbon Dioxide 19 L Anion Gap 17 BUN 83 H Creatinine 3.90 H Estim Creat Clear Calc 14.8 Estimated GFR 15 POC Glucose 329 H Random Glucose 405 H* Lactic Acid Calcium 9.8 D Total Bilirubin 1.1 H AST 33 ALT 15 Alkaline Phosphatase 148 H Total Protein 6.8 Albumin 2.7 L Random Vancomycin Blood Type Antibody Screen 09/21/22 09/21/22 09/21/22 00:25 01:14 05:58 WBC 6.9 RBC 3.01 L Hgb 8.5 L Hct 26.7 L MCV 88.7 MCH 28.2 MCHC 31.8 RDW 15.6 Plt Count 167 MPV 11.8 Immature Gran % (Auto) 0.6 H Neut % (Auto) 78.0 H Lymph % (Auto) 8.7 L [place] % (Auto) 9.1 Eos % (Auto) 2.7 Baso % (Auto) 0.9 Lymph # (Auto) 0.6 L [place] # (Auto) 0.6 Eos # (Auto) 0.2 Baso # (Auto) 0.1 Abs Immat Gran (auto) 0.04 H Absolute Neuts (auto) 5.4 Absolute Nucleated RBC 0.000 Nucleated RBC % (auto) 0.0 Sodium Potassium Chloride Carbon Dioxide Anion Gap BUN Creatinine Estim Creat Clear Calc Estimated GFR POC Glucose 309 H Random Glucose Lactic Acid 1.9 Calcium Total Bilirubin AST ALT Alkaline Phosphatase Total Protein Albumin Random Vancomycin Blood Type Antibody Screen 09/21/22 09/21/22 09/21/22 05:58 07:23 11:19 WBC RBC Hgb Hct MCV MCH MCHC RDW Plt Count MPV Immature Gran % (Auto) Neut % (Auto) Lymph % (Auto) [place] % (Auto) Eos % (Auto) Baso % (Auto) Lymph # (Auto) [place] # (Auto) Eos # (Auto) Baso # (Auto) Abs Immat Gran (auto) Absolute Neuts (auto) Absolute Nucleated RBC Nucleated RBC % (auto) Sodium 139 Potassium 3.4 D Chloride 108 Carbon Dioxide 19 L Anion Gap 15 BUN 76 H Creatinine 3.30 H Estim Creat Clear Calc 17.5 Estimated GFR 18 POC Glucose 170 H 202 H Random Glucose 179 H Lactic Acid Calcium 8.8 D Total Bilirubin AST ALT Alkaline Phosphatase Total Protein Albumin Random Vancomycin Blood Type Antibody Screen 09/21/22 09/21/22 09/22/22 16:20 20:23 05:39 WBC RBC Hgb Hct MCV MCH MCHC RDW Plt Count MPV Immature Gran % (Auto) Neut % (Auto) Lymph % (Auto) [place] % (Auto) Eos % (Auto) Baso % (Auto) Lymph # (Auto) [place] # (Auto) Eos # (Auto) Baso # (Auto) Abs Immat Gran (auto) Absolute Neuts (auto) Absolute Nucleated RBC Nucleated RBC % (auto) Sodium Potassium Chloride Carbon Dioxide Anion Gap BUN Creatinine 3.04 H Estim Creat Clear Calc 19.0 Estimated GFR 20 POC Glucose 268 H 257 H Random Glucose Lactic Acid Calcium Total Bilirubin AST ALT Alkaline Phosphatase Total Protein Albumin Random Vancomycin Blood Type Antibody Screen 09/22/22 09/22/22 09/22/22 07:14 10:48 16:33 WBC RBC Hgb Hct MCV MCH MCHC RDW Plt Count MPV Immature Gran % (Auto) Neut % (Auto) Lymph % (Auto) [place] % (Auto) Eos % (Auto) Baso % (Auto) Lymph # (Auto) [place] # (Auto) Eos # (Auto) Baso # (Auto) Abs Immat Gran (auto) Absolute Neuts (auto) Absolute Nucleated RBC Nucleated RBC % (auto) Sodium Potassium Chloride Carbon Dioxide Anion Gap BUN Creatinine Estim Creat Clear Calc Estimated GFR POC Glucose 208 H 238 H 256 H Random Glucose Lactic Acid Calcium Total Bilirubin AST ALT Alkaline Phosphatase Total Protein Albumin Random Vancomycin Blood Type Antibody Screen 09/22/22 09/23/22 09/23/22 20:35 06:51 06:51 WBC RBC Hgb Hct MCV MCH MCHC RDW Plt Count MPV Immature Gran % (Auto) Neut % (Auto) Lymph % (Auto) [place] % (Auto) Eos % (Auto) Baso % (Auto) Lymph # (Auto) [place] # (Auto) Eos # (Auto) Baso # (Auto) Abs Immat Gran (auto) Absolute Neuts (auto) Absolute Nucleated RBC Nucleated RBC % (auto) Sodium Potassium Chloride Carbon Dioxide Anion Gap BUN Creatinine 2.87 H Estim Creat Clear Calc 20.1 Estimated GFR 21 POC Glucose 314 H Random Glucose Lactic Acid Calcium Total Bilirubin AST ALT Alkaline Phosphatase Total Protein Albumin Random Vancomycin 25.4 H* Blood Type Antibody Screen 09/23/22 09/23/22 09/23/22 06:51 07:09 11:11 WBC RBC Hgb Hct MCV MCH MCHC RDW Plt Count MPV Immature Gran % (Auto) Neut % (Auto) Lymph % (Auto) [place] % (Auto) Eos % (Auto) Baso % (Auto) Lymph # (Auto) [place] # (Auto) Eos # (Auto) Baso # (Auto) Abs Immat Gran (auto) Absolute Neuts (auto) Absolute Nucleated RBC Nucleated RBC % (auto) Sodium Potassium Chloride Carbon Dioxide Anion Gap BUN Creatinine Estim Creat Clear Calc Estimated GFR POC Glucose 255 H 270 H Random Glucose Lactic Acid Calcium Total Bilirubin AST ALT Alkaline Phosphatase Total Protein Albumin Random Vancomycin Blood Type O Positive Antibody Screen NEGATIVE 09/23/22 09/23/22 09/24/22 16:06 20:12 05:42 WBC RBC Hgb Hct MCV MCH MCHC RDW Plt Count MPV Immature Gran % (Auto) Neut % (Auto) Lymph % (Auto) [place] % (Auto) Eos % (Auto) Baso % (Auto) Lymph # (Auto) [place] # (Auto) Eos # (Auto) Baso # (Auto) Abs Immat Gran (auto) Absolute Neuts (auto) Absolute Nucleated RBC Nucleated RBC % (auto) Sodium Potassium Chloride Carbon Dioxide Anion Gap BUN Creatinine Estim Creat Clear Calc Estimated GFR POC Glucose 258 H 253 H Random Glucose Lactic Acid Calcium Total Bilirubin AST ALT Alkaline Phosphatase Total Protein Albumin Random Vancomycin 23.5 H Blood Type Antibody Screen 09/24/22 09/24/22 09/24/22 05:43 07:03 09:59 WBC RBC Hgb Hct MCV MCH MCHC RDW Plt Count MPV Immature Gran % (Auto) Neut % (Auto) Lymph % (Auto) [place] % (Auto) Eos % (Auto) Baso % (Auto) Lymph # (Auto) [place] # (Auto) Eos # (Auto) Baso # (Auto) Abs Immat Gran (auto) Absolute Neuts (auto) Absolute Nucleated RBC Nucleated RBC % (auto) Sodium Potassium Chloride Carbon Dioxide Anion Gap BUN Creatinine 2.74 H Estim Creat Clear Calc 21.1 Estimated GFR 22 POC Glucose 218 H 198 H Random Glucose Lactic Acid Calcium Total Bilirubin AST ALT Alkaline Phosphatase Total Protein Albumin Random Vancomycin Blood Type Antibody Screen Airway Mallampati Class: III TM Dist: >3cm Neck ROM: Limited Heart: paced rythm Lungs: crackles diminshed sounds Assessment and Plan Assessment Anesthesia Assessment: Anesthesia Plan Discussed and Chart Reviewed Final Anesthetic Review Family History of Problems with Anesthesia: No History of Problems with Anesthesia: No ASA Class: IV Final Preanesthetic Review: No Changes in Pt Med Stat, Meds/Allgs Chart Reviewed, Consent Obtained/Reviewed and Anes Risks/Benef Reviewed Patient Risk: High Procedure Risk: Intermediate Anesthetic Plan Anesthetic Plan: GA Disposition: Standard PACU (purple toungue )
--- NOTE | 2022-09-24 12:32 | W.PM.OPN ---
Operative Note Operative Note Date of Service: 09/24/22 Narrative: Operative note by [facility] Preoperative diagnosis: 1. Ischemic Right lower extremity 2. Diabetic foot ulcer Postoperative diagnosis: Same Procedure: 1. right Leg below-knee amputation 2. Myodesis Surgeon:Gato Land M.D. Contract Admin: flor Anesthesia: General Specimens: One Drains: None Estimated blood loss:100 ml Indications: 82-year-old gentleman with a history transmetatarsal amputation with the flap has gone on to be necrotic. In addition he has peripheral vascular disease which we were unable to intervene on due to his bladder cancer and hematuria. He now presents for right below-knee amputation. The patient has signed the informed consent after reviewing risks, complications, benefits, and alternatives previously discussed with the patient. The patient was given the opportunity to ask any additional questions or voice any concerns. All questions were answered to the patient's satisfaction. Procedure in detail: The patient was brought to the operating room prior to which a time-out was called for patient identification and site verification. The patient was per Wilder in a supine position. The Right lower extremity was prepped and draped in the standard surgical fashion. The intended incision site was marked. The anterior aspect of the incision was made approximately 10 cm below the right tibial tuberosity. The incision was carried through the fascia. The anterior compartment muscles were divided using electrocautery dissection. The tibia and fibula were cleared. Periosteal elevator was used to clear the periosteum from the tibia. The tibia was transected with a power reciprocating saw. This was done in a reverse hockey stick shaped cut. The fibula was transected approximately 2 in above the tibial transection site once again with a reciprocating saw. The amputation was then completed using electrocautery to create the posterior flap. The flap was debulked using electrocautery and Metzenbaum scissors. The nerve was placed on traction and ligated and divided sharply. The anterior tibial posterior tibial and peroneal vessels were or identified and tied off with 2-0 silk ties. We then performed a myodesis. In the tibia on the medial and lateral aspect using a drill holes were then created. Using 2-0 Polysorb the muscle was then buttressed to the tibia. The wound was then closed using 2 0 poly Sorb. This was used to bring together the fascia from the posterior flap to the anterior cut. We then reapproximated the superficial layer with 3-0 poly Sorb suture. Finally skin was closed using 2 0 nylon in a mattress fashion. In addition we used skin clips. The stump was then room wrapped with Xeroform Kerlix and an Wilder wrap. The patient tolerated the procedure well. Brought to recovery with stable vitals. At the end the case sponge needle instrument counts were correct x2. This note is constructed using voice recognition software. While every effort has been made to ensure accuracy, relief pharmacist errors may have been included. Thank you for allowing me to participate in the care of your patient. Yours sincerely, Gato Land MD, FACS, R.P.V.I.
--- NOTE | 2022-09-24 13:15 | MHC.CLN ---
F/U PROCEDURE FOR RIGHT BKA TODAY. DIET POST SURGERY=DIABETIC 2200 KCALS-APPROPRIATE. SKIN WITH UNSTAGEABLE AREA TO LEFT HEEL; REDNESS TO GROIN AND BUTTOCKS. FOLLOW FOR INTAKE, LABS, AND WOUND HEALING.
[2022-09-24] MEDS: Finasteride 5 MG TABLET PO (14:06)
[2022-09-24] MEDS: oxyCODONE HCl Immed Release 5 MG TABLET PO (14:06)
[2022-09-24] MEDS: Empagliflozin 10 MG TABLET PO (14:06)
[2022-09-24] MEDS: Sodium Bicarbonate 650 MG TABLET PO ×2 (14:06→21:14)
[2022-09-24] MEDS: Insulin Lispro 100 UNIT/ML 3 ML VIAL SUBCUT ×3 (14:07→21:20)
--- NOTE | 2022-09-24 14:17 | MHC.CM.PN ---
Patient s/p LE AMP today. A clinical update has been sent to [facility]. Patients/family 1st choice. DP STR via BLS.
--- NOTE | 2022-09-24 14:38 | PC.NURSE ---
1345: Pt returned from PACU, awake. POC 247- insulin given prior to lunch. Medicated with po oxycodone for pain with pending effect
[2022-09-24] MEDS: Acetaminophen 325 MG TABLET 650 MG PO (17:19)
[2022-09-24] MEDS: Ferrous Sulfate 324 MG TABLET.DR PO (17:19)
[2022-09-24 20:08] LABS: Glucose, Whole Blood 245 mg/dL (60-115)
[2022-09-24] MEDS: Doxazosin Mesylate 2 MG TABLET 4 MG PO (21:14)
[2022-09-24] MEDS: Atorvastatin Calcium 20 MG TABLET PO (21:14)
[2022-09-24 21:55] LABS: Vancomycin Random 21.9 mcg/mL (15-20)
[2022-09-25 03:12] VITALS: BP 135/71; PULSE 86; RESP 16; TEMP 36.1; O2SAT 93
[2022-09-25 05:36] LABS: Creatinine Clr Calc Pharmacy 20.6; Estimated Glomerular Filt Rate 22
[2022-09-25] MEDS: Omeprazole 20 MG CAPSULE.DR PO (05:54)
[2022-09-25 07:12] VITALS: BP 120/67; PULSE 75; RESP 18; TEMP 36.3; O2SAT 98
[2022-09-25 07:21] LABS: Glucose, Whole Blood 298 mg/dL (60-115)
[2022-09-25] MEDS: Sodium Bicarbonate 650 MG TABLET PO ×3 (07:49→21:02)
[2022-09-25] MEDS: Ferrous Sulfate 324 MG TABLET.DR PO ×2 (07:49→16:56)
[2022-09-25] MEDS: Metoprolol Tartrate 12.5 MG HALFTAB PO ×2 (07:49→21:02)
[2022-09-25] MEDS: Cholecalciferol (Vitamin D3) 25 MCG TABLET 50 MCG PO (07:49)
[2022-09-25] MEDS: Finasteride 5 MG TABLET PO (07:49)
[2022-09-25] MEDS: Empagliflozin 10 MG TABLET PO (07:49)
[2022-09-25] MEDS: Insulin Lispro 100 UNIT/ML 3 ML VIAL SUBCUT ×4 (07:50→21:02)
[2022-09-25 07:55] LABS: Basophils Percent Auto 0.1 % (0-2); Hematocrit 26.9 % (42.0-52.0); Hemoglobin 8.5 g/dl (14.0-18.0); Imm Gran Abs Auto 0.06 X10*3/uL (0.00-0.03); Imm Gran Pct Auto 0.7 % (0.0-0.4); Lymphocytes Absolute Auto 0.4 X10*3/uL (1.2-4.9); Lymphocytes Percent Auto 4.3 % (20-40); MANUAL DIFF FLAG SCAN; Mean Corpuscular HGB Conc 31.6 g/dl (31.0-36.0); Mean Corpuscular Volume 88.5 fL (80.0-98.0); Mean Platelet Volume 12.1 fL (9.4-12.4); Monocytes Absolute Auto 0.3 X10*3/uL (0.1-1.2); Monocytes Percent Auto 3.8 % (2-11); Neutrophils Absolute Auto 7.8 x10*3/uL (2.0-8.3); Neutrophils Percent Auto 91.1 % (45-73); Platelet Count 150 X10*3/uL (160-400); Red Blood Count 3.04 X10*6/uL (4.60-5.80); Red Cell Distribution Width 15.9 % (11.0-16.0); SCAN SMEAR FLAG 1; White Blood Count 8.5 X10*3/uL (4.8-10.8)
[2022-09-25] MEDS: oxyCODONE HCl Immed Release 5 MG TABLET PO ×2 (07:56→21:02)
[2022-09-25 08:14] LABS: SLIDE REVIEW VERIFIED
[2022-09-25 08:57] LABS: Estimated Average Glucose 174 mg/dL; Hemoglobin A1c % 7.7 %
[2022-09-25 09:06] LABS: Vancomycin Random 20.5 mcg/mL (15-20)
--- NOTE | 2022-09-25 09:06 | P.PNVS_ITS ---
Subjective Subjective Date of Service: 09/25/22 Patient reports: no new complaints and feels better Interval history: Patient seen examined. Postop day 1 status post BKA. Doing well pain well controlled. Resting comfortably bedside. He appears to be doing significantly better since his prior admissions. Son is at bedside. Physical Exam Vital Signs: Vital Signs: Last Vital Signs Temp 97.4 F 09/25/22 07:12 Pulse 75 09/25/22 07:12 Resp 18 09/25/22 07:12 BP 120/67 09/25/22 07:12 Pulse Ox 98 09/25/22 07:12 O2 Del Method Room Air 09/25/22 07:12 BMI result Body Mass Index 24.3 Const: General: cooperative, healthy appearing and no acute distress Orientation/consciousness: oriented to person, oriented to place and oriented to time HEENT: Head: Yes normal to inspection Neck: Carotids: no bruits Chest: Chest palpation & inspection: normal inspection of the chest Resp: Effort & Inspection: normal respiratory effort and able to speak in complete sentences Auscultation: clear to auscultation bilaterally Cardio: Rate: regular rate Heart sounds: S1 normal heart sound present and S2 normal heart sound present GI: Inspection: Yes normal to inspection Skin: Other: Dressing clean dry intact General skin exam: no rashes or lesions noted Wounds: no wounds Neuro: General: oriented to person, oriented to place, oriented to time and CN's II-XI intact bilaterally Extrem: General: Yes normal to inspection, Yes full ROM and Yes no clubbing, cyanosis or edema Psych: Appearance: grossly normal and well kempt Speech and movement: Normal speech and movement present Affect: normal affect Progress Note: A&P Assessment and plan (1) Status post below knee amputation of right lower extremity: Status: Acute Assessment and Plan: In short patient is doing extremely well status post BKA. Will plan for dressin g change for tomorrow. Would be ready from our perspective as early as tomorrow for discharge or transfer to rehab facility. In addition I did discuss routine risk factor modification along with an extensive discussion about nutrition and increasing protein intake. Also of concern is he is somewhat in [place] and. May benefit from a [place] catheter. We will continue to follow with you. Thank you for allowing us to assist in his care. Time Spent With Patient Time: Total time managing care of this patient today ____ minutes. Procedures Date of Service Date of Service: 09/25/22 Quality Stroke Does the patient have a stroke diagnosis?: No VTE Prior VTE?: No VTE Risk Level:: Medical - moderate - high VTE Device Contraindication: Treatment Not Indicated VTE Drug Contraindication: Treatment Not Indicated
[2022-09-25 11:04] LABS: Glucose, Whole Blood 297 mg/dL (60-115)
--- NOTE | 2022-09-25 14:06 | P.PNIM_ITS ---
Subjective Subjective Date of Service: 09/25/22 Interval History: f/u on infected surgical ampuation site Review of Systems No new issues, BKA planned for today, no pain Physical Exam Vital Signs: Vital Signs: Last Vital Signs Temp 97.4 F 09/25/22 07:12 Pulse 75 09/25/22 07:12 Resp 18 09/25/22 07:12 BP 120/67 09/25/22 07:12 Pulse Ox 98 09/25/22 07:12 O2 Del Method Room Air 09/25/22 07:12 BMI result Body Mass Index 24.3 General: AO X 3, no acute distress Resp:? CTA bilateral CVS: S1,S2,RRR GI: +BS, NT, no distention Skin: wound dressing intact Neuro:? motor grossly intact Psych: appropriate affect Objective Data Active Medications Acetaminophen (Acetaminophen 325 Mg Tablet) 650 mg PO Q6H PRN PRN Reason: Pain, Mild (Pain Scale 1-3) Last Admin: 09/24/22 17:19 Dose: 650 mg Documented By: GUILLERMO Acetaminophen (Acetaminophen 325 Mg Tablet) 650 mg PO Q6H PRN PRN Reason: Fever Or Pain Atorvastatin Calcium (Atorvastatin Calcium 20 Mg Tablet) 20 mg PO BEDTIME JIL Last Admin: 09/24/22 21:14 Dose: 20 mg Documented By: MCKINLEY Bisacodyl (Bisacodyl 10 Mg Supp.Rect) 10 mg ID DAILY PRN PRN Reason: Constipation Dextrose (Dextrose 50 % 25 Gm/50 Ml Syringe) 25 gm IVPUSH Q15M PRN; Protocol PRN Reason: per Hypoglycemia Standing Ord. Doxazosin Mesylate (Doxazosin Mesylate 2 Mg Tablet) 4 mg PO BEDTIME JIL; Protocol Last Admin: 09/24/22 21:14 Dose: 4 mg Documented By: MCKINLEY Empagliflozin (Empagliflozin 10 Mg Tablet) 10 mg PO DAILY JIL Last Admin: 09/25/22 07:49 Dose: 10 mg Documented By: EHRNÁN Fentanyl (Fentanyl Citrate/Pf 100 Mcg/2 Ml Vial) 12.5 mcg IVPUSH Q5M PRN; Protocol PRN Reason: Pain, Moderate(Pain Scale 4-6) Last Admin: 09/24/22 13:05 Dose: 12.5 mcg Documented By: ASH Ferrous Sulfate (Ferrous Sulfate 324 Mg Tablet.) 324 mg PO BIDWM [facility] Last Admin: 09/25/22 07:49 Dose: 324 mg Documented By: HERNÁN Finasteride (Finasteride 5 Mg Tablet) 5 mg PO DAILY [facility] Last Admin: 09/25/22 07:49 Dose: 5 mg Documented By: HERNÁN Glucose (Glucose Gel 15 Gm Gel..Gram.) 15 gm PO Q15M PRN; Protocol PRN Reason: per Hypoglycemia Standing Ord. Promethazine HCl 12.5 mg/ (Sodium Chloride) 50.5 mls @ 202 mls/hr IV ONCE PRN PRN Reason: Nausea and Vomiting Insulin Human Lispro (Insulin Lispro 100 Unit/Ml 3 Ml Vial) 0 unit SUBCUT QIDACHS [facility]; Protocol Last Admin: 09/25/22 11:34 Dose: 6 unit Documented By: HERNÁN Magnesium Hydroxide (Milk Of Magnesia 30 Ml Oral.Susp) 30 ml PO DAILY PRN PRN Reason: Constipation Melatonin (Melatonin 3 Mg Tablet) 6 mg PO BEDTIME PRN PRN Reason: Insomnia Metoprolol Tartrate (Metoprolol Tartrate 12.5 Mg Halftab) 12.5 mg PO BID [facility]; Protocol Last Admin: 09/25/22 07:49 Dose: 12.5 mg Documented By: HERNÁN Omeprazole (Omeprazole 20 Mg Capsule.) 20 mg PO DAILY@0630 [facility] Last Admin: 09/25/22 05:54 Dose: 20 mg Documented By: MCKINLEY Ondansetron HCl (Ondansetron Hcl 4 Mg/2 Ml Vial) 4 mg IVPUSH Q8H PRN PRN Reason: Nausea and Vomiting Last Admin: 09/24/22 12:57 Dose: 4 mg Documented By: ASH Ondansetron HCl (Ondansetron Hcl 4 Mg/2 Ml Vial) 4 mg IVPUSH ONCE PRN PRN Reason: Nausea and Vomiting Oxycodone HCl (Oxycodone Hcl Immed Release 5 Mg Tablet) 5 mg PO Q4H PRN PRN Reason: Pain, Severe (Pain Scale 7-10) Last Admin: 09/25/22 07:56 Dose: 5 mg Documented By: HERNÁN Pharmacy Consult (Consult Rx Vancomycin Dosing) 1 each MISCELLANE DAILY PRN PRN Reason: Consult order Pharmacy Consult (Consult Rx Perform Med Rec) 1 each MISCELLANE ONCE PRN PRN Reason: Consult order Sodium Bicarbonate (Sodium Bicarbonate 650 Mg Tablet) 650 mg PO TID [facility] Last Admin: 09/25/22 07:49 Dose: 650 mg Documented By: HERNÁN Sodium Biphosphate/Sodium Phosphate (Sodium Phosphate,Story-Dibasic 133 Ml Enema) 118 ml ID DAILY PRN PRN Reason: Constipation Sodium Chloride (0.9 % Sodium Chloride Flush 3 Ml Syringe) 3 ml IVFLUSH QSHIFT [facility] Last Admin: 09/25/22 07:50 Dose: 3 ml Documented By: HERNÁN Vitamin D (Cholecalciferol (Vitamin D3) 25 Mcg Tablet) 50 mcg PO DAILY [facility] Last Admin: 09/25/22 07:49 Dose: 50 mcg Documented By: HERNÁN Labs 09/25/22 07:53 09/25/22 05:01 Labs: Laboratory Results - last 24 hr 09/24/22 09/24/22 09/24/22 16:09 19:37 21:21 MCV MCH MCHC RDW Plt Count MPV Immature Gran % (Auto) Neut % (Auto) Lymph % (Auto) Story % (Auto) Eos % (Auto) Baso % (Auto) Lymph # (Auto) Story # (Auto) Eos # (Auto) Baso # (Auto) Abs Immat Gran (auto) Absolute Neuts (auto) Absolute Nucleated RBC Nucleated RBC % (auto) Smear Tech's Comments Estim Creat Clear Calc Estimated GFR POC Glucose 256 H 245 H Estimat Average Glucose Hemoglobin A1c % Random Vancomycin 21.9 H 09/25/22 09/25/22 09/25/22 05:01 07:18 07:53 MCV 88.5 MCH 28.0 MCHC 31.6 RDW 15.9 Plt Count 150 L MPV 12.1 Immature Gran % (Auto) 0.7 H Neut % (Auto) 91.1 H Lymph % (Auto) 4.3 L Story % (Auto) 3.8 Eos % (Auto) 0.0 Baso % (Auto) 0.1 Lymph # (Auto) 0.4 L Story # (Auto) 0.3 Eos # (Auto) 0.0 Baso # (Auto) 0.0 Abs Immat Gran (auto) 0.06 H Absolute Neuts (auto) 7.8 Absolute Nucleated RBC 0.000 Nucleated RBC % (auto) 0.0 Smear Tech's Comments VERIFIED Estim Creat Clear Calc 20.6 Estimated GFR 22 POC Glucose 298 H Estimat Average Glucose Hemoglobin A1c % Random Vancomycin 09/25/22 09/25/22 09/25/22 07:53 08:31 11:00 MCV MCH MCHC RDW Plt Count MPV Immature Gran % (Auto) Neut % (Auto) Lymph % (Auto) Story % (Auto) Eos % (Auto) Baso % (Auto) Lymph # (Auto) Story # (Auto) Eos # (Auto) Baso # (Auto) Abs Immat Gran (auto) Absolute Neuts (auto) Absolute Nucleated RBC Nucleated RBC % (auto) Smear Tech's Comments Estim Creat Clear Calc Estimated GFR POC Glucose 297 H Estimat Average Glucose 174 Hemoglobin A1c % 7.7 Random Vancomycin 20.5 H Microbiology Microbiology Results: Microbiology 09/21/22 00:25 Blood Culture - Final Blood - Venous Enterococcus faecium 09/21/22 00:19 Blood Culture - Final Blood - Venous Enterococcus faecium Assessment and Plan (1) Diabetes type 2, controlled: Status: Acute (2) Amputation of right great toe: Status: Acute (3) Cellulitis of foot, right: Status: Acute Plan 81 years old male with PMH of CKD, CHF, recent OM, DM, HTN , PAD among others admitted on 09/03/22 to Vascular surgery service by Dr. Land and underwent elective Right great toe ampuation due to Nonhealing diabetic foot ulcer, followed by Right TMA on 09/13/22, and was discharge on 09/19 and went to the wound clinic 09/20 and noted to have drainage, ordor and concern for infection and sent to the ED and admitted again. Right great toe diabetic foot ulcer s/p right toe ampuation on 09/03, and was not healing well with possible infection so underwent right TMA on 09/13/22 and not healing and looks infected after discharge, readmitted and Will have BKA today 09/24/22, IV Abx (Vanco) in the interim, pharmacy to adjust dose based on level Id eval. Acute on Chronic anemia 2/2 CKD 3--Stable. DMII--Jardiance and SSI. Hypertension--controlled on Metoprolol. Need for inpt: Infected amputated site, awaiting BKA. DVT prophylaxis heparin. Need for inpatient: infected wound need IV Abx, and need amputation . Time Spent With Patient Time: Total time managing care of this patient today ____ minutes. Quality Stroke Does the patient have a stroke diagnosis?: No VTE Prior VTE?: No VTE Risk Level:: Medical - moderate - high VTE Device Contraindication: Treatment Not Indicated VTE Drug Contraindication: Treatment Not Indicated
[2022-09-25] MEDS: Acetaminophen 325 MG TABLET 650 MG PO (15:22)
[2022-09-25 15:25] VITALS: BP 122/61; PULSE 81; RESP 18; TEMP 36.8; O2SAT 98
[2022-09-25 15:58] LABS: Glucose, Whole Blood 307 mg/dL (60-115)
--- NOTE | 2022-09-25 17:10 | PC.NURSE ---
Md Hilton notified via tiger text at 0806, urine draining from FC appears to be bright red in color, no clots observed, good flow no occlusions in tubing, pt asymptomatic. New orders entered per to hold SQ heparin and Urology consult placed. 1700 pts urine appears light red in color, no clots or shreds noted FC draining no occlusions in tubing noted. Pt denies pain at this time, resting comfortably in bed, rise and fall of chest noted no apparent distress.
[2022-09-25 19:49] VITALS: BP 140/67; PULSE 70; RESP 18; TEMP 36.6; O2SAT 94
[2022-09-25 20:25] LABS: Glucose, Whole Blood 248 mg/dL (60-115)
[2022-09-25] MEDS: Doxazosin Mesylate 2 MG TABLET 4 MG PO (21:02)
[2022-09-25] MEDS: Atorvastatin Calcium 20 MG TABLET PO (21:02)
[2022-09-26 04:00] VITALS: BP 116/61; PULSE 90; RESP 18; TEMP 36.5; O2SAT 98
[2022-09-26] MEDS: Omeprazole 20 MG CAPSULE.DR PO (05:46)
[2022-09-26 06:19] LABS: Vancomycin Random 20.4 mcg/mL (15-20)
[2022-09-26 06:23] LABS: Creatinine Clr Calc Pharmacy 20.6; Estimated Glomerular Filt Rate 22
[2022-09-26 07:00] VITALS: BP 121/56; PULSE 99; RESP 18; TEMP 36.1; O2SAT 98
[2022-09-26 07:03] LABS: Glucose, Whole Blood 207 mg/dL (60-115)
[2022-09-26] MEDS: Insulin Lispro 100 UNIT/ML 3 ML VIAL SUBCUT ×4 (08:10→22:01)
[2022-09-26] MEDS: Metoprolol Tartrate 12.5 MG HALFTAB PO ×2 (08:11→21:59)
[2022-09-26] MEDS: Sodium Bicarbonate 650 MG TABLET PO ×3 (08:11→22:00)
[2022-09-26] MEDS: Finasteride 5 MG TABLET PO (08:11)
[2022-09-26] MEDS: Ferrous Sulfate 324 MG TABLET.DR PO ×2 (08:12→16:35)
[2022-09-26] MEDS: Cholecalciferol (Vitamin D3) 25 MCG TABLET 50 MCG PO (08:13)
[2022-09-26] MEDS: Empagliflozin 10 MG TABLET PO (08:13)
--- NOTE | 2022-09-26 09:14 | HO.VASCPN ---
Subjective Subjective Date of Service: 09/26/22 Patient reports: no new complaints and feels better Interval history: Patient seen and examined. Postop day 2 status post right BKA. No events overnight. Pain appears to be well controlled. He appears to be in relatively good spirits. Physical Exam Vital Signs: Vital Signs: Last Vital Signs Temp 97.0 F 09/26/22 07:00 Pulse 99 09/26/22 07:00 Resp 18 09/26/22 07:00 BP 121/56 L 09/26/22 07:00 Pulse Ox 98 09/26/22 07:00 O2 Del Method Room Air 09/26/22 07:00 BMI result Body Mass Index 24.3 Const: General: cooperative, healthy appearing and no acute distress Orientation/consciousness: oriented to person, oriented to place and oriented to time HEENT: Head: Yes normal to inspection Neck: Carotids: no bruits Chest: Chest palpation & inspection: normal inspection of the chest Resp: Effort & Inspection: normal respiratory effort and able to speak in complete sentences Auscultation: clear to auscultation bilaterally Cardio: Rate: regular rate Heart sounds: S1 normal heart sound present and S2 normal heart sound present GI: Inspection: Yes normal to inspection Skin: Other: Right stump dressing changed. Stump flap healing well with excellent take. General skin exam: no rashes or lesions noted Wounds: no wounds Neuro: General: oriented to person, oriented to place, oriented to time and CN's II-XI intact bilaterally Extrem: General: Yes normal to inspection, Yes full ROM and Yes no clubbing, cyanosis or edema Psych: Appearance: grossly normal and well kempt Speech and movement: Normal speech and movement present Affect: normal affect Progress Note: A&P Assessment and plan (1) Status post below knee amputation of right lower extremity: Status: Acute Assessment and Plan: In short patient is doing well status post BKA. Stable from my perspective for discharge. Can see me as an outpatient in approximately 2 weeks time for suture and staple removal. Time Spent With Patient Time: Total time managing care of this patient today ____ minutes. Procedures Date of Service Date of Service: 09/26/22 Quality Stroke Does the patient have a stroke diagnosis?: No VTE Prior VTE?: No VTE Risk Level:: Medical - moderate - high VTE Device Contraindication: Treatment Not Indicated VTE Drug Contraindication: Treatment Not Indicated
[2022-09-26 09:27] LABS: Anion Gap 16 (12-20)
[2022-09-26 09:29] LABS: Blood Urea Nitrogen 63 mg/dL (9-16); Carbon Dioxide 20 mmol/L (22-29); Chloride 105 mmol/L (96-108); Glucose Random 218 mg/dL (60-115); Potassium 4.6 mmol/L (3.3-5.1); Sodium 136 mmol/L (135-145)
[2022-09-26 11:00] VITALS: O2SAT 98
[2022-09-26 11:12] LABS: Glucose, Whole Blood 209 mg/dL (60-115)
--- NOTE | 2022-09-26 11:17 | MHC.CLN ---
F/U DIET=DIABETIC 1800 KCALS-APPROPRIATE. SKIN WITH UNSTAGEABLE AREA TO LEFT HEEL; RIGHT BKA. MOST RECENT INTAKE 75-100%. LABS REVIEWED. CONTINUES WITH ELEVATED BUN, Cr, BLOOD GLUCOSE. FOLLOW FOR INTAKE, LABS, AND WOUND HEALING.
[2022-09-26 12:00] VITALS: O2SAT 94
--- NOTE | 2022-09-26 13:23 | MHC.CM.PN ---
DP [facility] for STR. Patient will transport via BLS. A consult is pending. Discharge is planned for later this week.
[2022-09-26] MEDS: Linezolid/D5W 600 MG/300 ML PIGGYBACK 300 MG IV (13:36)
--- NOTE | 2022-09-26 14:35 | P.PNIM_ITS ---
Subjective Subjective Date of Service: 09/26/22 Interval History: f/u on infected surgical ampuation site Review of Systems No new issues, BKA planned for today, no pain Physical Exam Vital Signs: Vital Signs: Last Vital Signs Temp 97.0 F 09/26/22 07:00 Pulse 99 09/26/22 07:00 Resp 18 09/26/22 07:00 BP 121/56 L 09/26/22 07:00 Pulse Ox 94 09/26/22 12:00 O2 Del Method Room Air 09/26/22 12:00 BMI result Body Mass Index 24.3 General: AO X 3, no acute distress Resp:? CTA bilateral CVS: S1,S2,RRR GI: +BS, NT, no distention Skin: wound dressing intact Neuro:? motor grossly intact left heel pressure ulcer Psych: appropriate affect Skin: Other: Objective Data Active Medications Acetaminophen (Acetaminophen 325 Mg Tablet) 650 mg PO Q6H PRN PRN Reason: Pain, Mild (Pain Scale 1-3) Last Admin: 09/25/22 15:22 Dose: 650 mg Documented By: HERNÁN Acetaminophen (Acetaminophen 325 Mg Tablet) 650 mg PO Q6H PRN PRN Reason: Fever Or Pain Atorvastatin Calcium (Atorvastatin Calcium 20 Mg Tablet) 20 mg PO BEDTIME [facility] Last Admin: 09/25/22 21:02 Dose: 20 mg Documented By: ROLANDO Bisacodyl (Bisacodyl 10 Mg Supp.Rect) 10 mg [place] DAILY PRN PRN Reason: Constipation Dextrose (Dextrose 50 % 25 Gm/50 Ml Syringe) 25 gm IVPUSH Q15M PRN; Protocol PRN Reason: per Hypoglycemia Standing Ord. Doxazosin Mesylate (Doxazosin Mesylate 2 Mg Tablet) 4 mg PO BEDTIME [facility]IL; Protocol Last Admin: 09/25/22 21:02 Dose: 4 mg Documented By: ROLANDO Empagliflozin (Empagliflozin 10 Mg Tablet) 10 mg PO DAILY [facility] Last Admin: 09/26/22 08:13 Dose: 10 mg Documented By: TADEO Fentanyl (Fentanyl Citrate/Pf 100 Mcg/2 Ml Vial) 12.5 mcg IVPUSH Q5M PRN; Protocol PRN Reason: Pain, Moderate(Pain Scale 4-6) Last Admin: 09/24/22 13:05 Dose: 12.5 mcg Documented By: ASH Ferrous Sulfate (Ferrous Sulfate 324 Mg Tablet.) 324 mg PO BIDWM [facility] Last Admin: 09/26/22 08:12 Dose: 324 mg Documented By: TADEO Finasteride (Finasteride 5 Mg Tablet) 5 mg PO DAILY [facility] Last Admin: 09/26/22 08:11 Dose: 5 mg Documented By: TADEO Glucose (Glucose Gel 15 Gm Gel..Gram.) 15 gm PO Q15M PRN; Protocol PRN Reason: per Hypoglycemia Standing Ord. Promethazine HCl 12.5 mg/ (Sodium Chloride) 50.5 mls @ 202 mls/hr IV ONCE PRN PRN Reason: Nausea and Vomiting Vancomycin HCl 500 mg/ Sodium (Chloride) 110 mls @ 110 mls/hr IV Q48H [facility] Linezolid (Zyvox/D5w) 600 mg in 300 mls @ 300 mls/hr IV Q12H [facility] Last Admin: 09/26/22 13:36 Dose: 300 mls/hr Documented By: TADEO Insulin Human Lispro (Insulin Lispro 100 Unit/Ml 3 Ml Vial) 0 unit SUBCUT QIDACHS [facility]; Protocol Last Admin: 09/26/22 12:23 Dose: 4 unit Documented By: TADEO Magnesium Hydroxide (Milk Of Magnesia 30 Ml Oral.Susp) 30 ml PO DAILY PRN PRN Reason: Constipation Melatonin (Melatonin 3 Mg Tablet) 6 mg PO BEDTIME PRN PRN Reason: Insomnia Metoprolol Tartrate (Metoprolol Tartrate 12.5 Mg Halftab) 12.5 mg PO BID [facility]; Protocol Last Admin: 09/26/22 08:11 Dose: 12.5 mg Documented By: TADEO Omeprazole (Omeprazole 20 Mg Capsule.) 20 mg PO DAILY@0630 [facility] Last Admin: 09/26/22 05:46 Dose: 20 mg Documented By: ROLANDO Ondansetron HCl (Ondansetron Hcl 4 Mg/2 Ml Vial) 4 mg IVPUSH Q8H PRN PRN Reason: Nausea and Vomiting Last Admin: 09/24/22 12:57 Dose: 4 mg Documented By: ASH Ondansetron HCl (Ondansetron Hcl 4 Mg/2 Ml Vial) 4 mg IVPUSH ONCE PRN PRN Reason: Nausea and Vomiting Pharmacy Consult (Consult Rx Vancomycin Dosing) 1 each MISCELLANE DAILY PRN PRN Reason: Consult order Pharmacy Consult (Consult Rx Perform Med Rec) 1 each MISCELLANE ONCE PRN PRN Reason: Consult order Sodium Bicarbonate (Sodium Bicarbonate 650 Mg Tablet) 650 mg PO TID [facility] Last Admin: 09/26/22 08:11 Dose: 650 mg Documented By: TADEO Sodium Biphosphate/Sodium Phosphate (Sodium Phosphate,[place]-Dibasic 133 Ml Enema) 118 ml [place] DAILY PRN PRN Reason: Constipation Sodium Chloride (0.9 % Sodium Chloride Flush 3 Ml Syringe) 3 ml IVFLUSH QSHIFT [facility] Last Admin: 09/26/22 08:13 Dose: 3 ml Documented By: TADEO Vitamin D (Cholecalciferol (Vitamin D3) 25 Mcg Tablet) 50 mcg PO DAILY [facility] Last Admin: 09/26/22 08:13 Dose: 50 mcg Documented By: TADEO Labs 09/25/22 07:53 09/26/22 05:51 Labs: Laboratory Results - last 24 hr 09/25/22 09/25/22 09/26/22 15:55 20:22 05:51 Anion Gap 16 Estim Creat Clear Calc 20.6 Estimated GFR 22 POC Glucose 307 H 248 H Random Glucose 218 H Calcium 9.0 Random Vancomycin 09/26/22 09/26/22 09/26/22 05:51 06:58 11:08 Anion Gap Estim Creat Clear Calc Estimated GFR POC Glucose 207 H 209 H Random Glucose Calcium Random Vancomycin 20.4 H Assessment and Plan (1) Status post below knee amputation of right lower extremity: Status: Acute (2) Acute on chronic renal failure: Status: Acute (3) Bladder cancer: Status: Acute Plan 81 years old male with PMH of CKD, CHF, recent OM, DM, HTN , PAD among others admitted on 09/03/22 to Vascular surgery service by Dr. Land and underwent elective? Right great toe ampuation due to Nonhealing diabetic foot ulcer,? followed by Right DONA on 09/13/22, and was discharge on 09/19 and went to the wound clinic 09/20 and noted to have drainage, ordor and concern for infection and sent to the ED and admitted again. Right great toe diabetic foot ulcer s/p right toe ampuation on 09/03, and was not healing well with possible infection so underwent right? TMA on 09/13/22 and not healing and looks infected after discharge, readmitted and? Will s/p bka,has Enterococcus faecium bacteremia: vanco trough 20.4 (Enterococcus faecium not senstive to vanco) Id eval-blood culture grew Enterococcus faecium: Patient started on linezolid. also has left heel pressure area : added wound care. Acute on Chronic anemia 2/2 CKD 3--Stable. DMII--Jardiance and SSI. Hypertension--controlled on Metoprolol. hemtauria: has history of bladder cancer Still has punch colored urine Urology evaluation added DVT prophylaxis scd due to hematuria. Need for inpatient: infected wound need IV Abx, urology evaluation pending for hematuria. Time Spent With Patient Time: Total time managing care of this patient today ____ minutes. Quality Stroke Does the patient have a stroke diagnosis?: No VTE Prior VTE?: No VTE Risk Level:: Medical - moderate - high VTE Device Contraindication: Treatment Not Indicated VTE Drug Contraindication: Treatment Not Indicated
--- NOTE | 2022-09-26 14:42 | P.CDIM_ITS ---
PROVIDER RESPONSE TEXT: To clarify, the appropriate diagnosis supported by the clinical indicators: Pressure (decubitus) ulcer unstageable left heel QUERY TEXT: PHYSICIAN'S DOCUMENTATION REQUEST Date of Query: 09/26/2022 09:34 AM EDT Patient Name: Jacques Guadarrama Admit Date: 09/21/2022 Dear Jerrod Hilton, A review of the medical record indicates additional documentation may be needed. Please review below and update the documentation accordingly. Clinical Indicators: Wound care nursing notes 09/25 - Pressure injury unstageable left heel dressing c/d/i Based on the above, could you please provide further information regarding the injury/ulcer/wound: Pressure (decubitus) ulcer unstageable left heel Other Other (explain)Clinically unable to determine (explain)Thank you, Kathia Ricks, CCS, CDIS Use of terms such as suspected, likely, concern for, or probable (associated with a specific diagnosi s that is being evaluated, monitored, or treated as if it exists) are acceptable and can be coded in the inpatient se tting, when documented at the time of discharge. Please use your independent medical judgment in providing your response. THIS QUERY IS PART OF THE PERMANENT MEDICAL RECORD
[2022-09-26 15:12] VITALS: BP 105/56; PULSE 93; RESP 18; TEMP 36.1; O2SAT 98
--- NOTE | 2022-09-26 15:59 | P.CNID_ITS ---
History of Present Illness Data of Consult Service Date: 09/25/22 Requesting physician: Jerrod Hilton Primary Care Provider: RADHA Bonilla HPI Reason for consult: bacteremia,right wound dehiscence TMA He presents with right foot wound dehiscence TMA done on 09/13 Dr Land operated on patient and was doing well and then developed dehiscence. He has no fever or chills at this time. He has enterococcus faecium bacteremia,VRE. Review of Systems Review of Systems: Yes all other systems are reviewed and are negative PMFSH Past Medical History Medical History (Updated 09/26/22 @ 16:08 by Elba Quiros MD) Acute osteomyelitis Back pain CKD (chronic kidney disease) stage 3, GFR 30-59 ml/min Congestive heart failure with LV diastolic dysfunction, NYHA class 3 Decubitus ulcer, heel Diabetes mellitus Gram-negative bacteremia H/O cardiac pacemaker Heart block History of COVID-19 Hyperlipidemia Hypertension Infection of right foot Iron deficiency anemia PAD (peripheral artery disease) Type 2 diabetes mellitus with unspecified complications Ulcer of left heel Ulcer of right 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 Urinary retention VRE bacteremia Family History Family History Brother Testicular cancer Family history: reviewed and not pertinent Surgical History Surgical History History of atherectomy History of back surgery History of esophagogastroduodenoscopy History of left hip replacement Hx of cataract extraction Hx of colonoscopy Social History Social History Household Members: Spouse Household Members Other:: 2 Housing: House Do you presently have visiting nurse or other home services: No Alcohol intake: never Patient Tobacco Use Status: Former Tobacco user Quit Date: 15 years Tobacco use type: Cigarette Smoked in Last 30 Days: No Second Hand Smoke Exposure: No Use of substances other than those prescribed or required for medical reasons: No Currently Displaying Signs/Symptoms of Drug Intoxication Withdrawal: No Have you been hit, kicked, punched, or otherwise hurt by someone within the past year? If so, by whom?: No Do you feel safe in your current relationship?: No Is there a partner from a previous relationship who is making you feel unsafe now?: No Are you made to feel afraid or neglected: No Are you DNR?: No Advance Directives: Yes Advance Directives Information Provided: No Advance Directives on File: Yes Advance Directives Date on File: 07/12/22 Do you have thoughts of harming others: None Do you have a plan to hurt others: No Plan Recently lost weight without trying: No Eating poorly because of decreased appetite: No Nutrition Risks: No Nutritional Risk Poor oral hygiene: No service: No Current occupational status: retired Meds Allergies Allergy/AdvReac Type Severity Reaction Status Date / Time lisinopril [LISINOPRIL] Allergy Severe ANGIOEDEMA Verified 08/30/22 10:56 Active Medications: Current Medications Acetaminophen (Acetaminophen 325 Mg Tablet) 650 mg PO Q6H PRN PRN Reason: Pain, Mild (Pain Scale 1-3) Last Admin: 09/25/22 15:22 Dose: 650 mg Acetaminophen (Acetaminophen 325 Mg Tablet) 650 mg PO Q6H PRN PRN Reason: Fever Or Pain Atorvastatin Calcium (Atorvastatin Calcium 20 Mg Tablet) 20 mg PO BEDTIME [facility] Last Admin: 09/25/22 21:02 Dose: 20 mg Bisacodyl (Bisacodyl 10 Mg Supp.Rect) 10 mg LA DAILY PRN PRN Reason: Constipation Dextrose (Dextrose 50 % 25 Gm/50 Ml Syringe) 25 gm IVPUSH Q15M PRN; Protocol PRN Reason: per Hypoglycemia Standing Ord. Doxazosin Mesylate (Doxazosin Mesylate 2 Mg Tablet) 4 mg PO BEDTIME [facility]; Protocol Last Admin: 09/25/22 21:02 Dose: 4 mg Empagliflozin (Empagliflozin 10 Mg Tablet) 10 mg PO DAILY [facility] Last Admin: 09/26/22 08:13 Dose: 10 mg Fentanyl (Fentanyl Citrate/Pf 100 Mcg/2 Ml Vial) 12.5 mcg IVPUSH Q5M PRN; Protocol PRN Reason: Pain, Moderate(Pain Scale 4-6) Last Admin: 09/24/22 13:05 Dose: 12.5 mcg Ferrous Sulfate (Ferrous Sulfate 324 Mg Tablet.Dr) 324 mg PO BIDWM [facility] Last Admin: 09/26/22 08:12 Dose: 324 mg Finasteride (Finasteride 5 Mg Tablet) 5 mg PO DAILY [facility] Last Admin: 09/26/22 08:11 Dose: 5 mg Glucose (Glucose Gel 15 Gm Gel..Gram.) 15 gm PO Q15M PRN; Protocol PRN Reason: per Hypoglycemia Standing Ord. Promethazine HCl 12.5 mg/ (Sodium Chloride) 50.5 mls @ 202 mls/hr IV ONCE PRN PRN Reason: Nausea and Vomiting Linezolid (Zyvox/D5w) 600 mg in 300 mls @ 300 mls/hr IV Q12H [facility] Last Infusion: 09/26/22 14:55 Dose: Infused Insulin Human Lispro (Insulin Lispro 100 Unit/Ml 3 Ml Vial) 0 unit SUBCUT QIDACHS [facility]; Protocol Last Admin: 09/26/22 12:23 Dose: 4 unit Magnesium Hydroxide (Milk Of Magnesia 30 Ml Oral.Susp) 30 ml PO DAILY PRN PRN Reason: Constipation Melatonin (Melatonin 3 Mg Tablet) 6 mg PO BEDTIME PRN PRN Reason: Insomnia Metoprolol Tartrate (Metoprolol Tartrate 12.5 Mg Halftab) 12.5 mg PO BID [facility]; Protocol Last Admin: 09/26/22 08:11 Dose: 12.5 mg Omeprazole (Omeprazole 20 Mg Capsule.Dr) 20 mg PO DAILY@0630 [facility] Last Admin: 09/26/22 05:46 Dose: 20 mg Ondansetron HCl (Ondansetron Hcl 4 Mg/2 Ml Vial) 4 mg IVPUSH Q8H PRN PRN Reason: Nausea and Vomiting Last Admin: 09/24/22 12:57 Dose: 4 mg Ondansetron HCl (Ondansetron Hcl 4 Mg/2 Ml Vial) 4 mg IVPUSH ONCE PRN PRN Reason: Nausea and Vomiting Pharmacy Consult (Consult Rx Perform Med Rec) 1 each MISCELLANE ONCE PRN PRN Reason: Consult order Sodium Bicarbonate (Sodium Bicarbonate 650 Mg Tablet) 650 mg PO TID [facility] Last Admin: 09/26/22 15:07 Dose: 650 mg Sodium Biphosphate/Sodium Phosphate (Sodium Phosphate,[place]-Dibasic 133 Ml Enema) 118 ml LA DAILY PRN PRN Reason: Constipation Sodium Chloride (0.9 % Sodium Chloride Flush 3 Ml Syringe) 3 ml IVFLUSH QSHIFT [facility] Last Admin: 09/26/22 15:08 Dose: 3 ml Vitamin D (Cholecalciferol (Vitamin D3) 25 Mcg Tablet) 50 mcg PO DAILY [facility] Last Admin: 09/26/22 08:13 Dose: 50 mcg Home Medications Medication Instructions Recorded Confirmed Last Taken Type simvastatin 40 mg tablet 40 mg PO BEDTIME 03/17/20 09/21/22 09/02/22 History blood sugar diagnostic (OneTouch #10 ea 11/11/20 09/03/22 09/03/22 History Verio test strips) pantoprazole 20 mg tablet,delayed 20 mg PO DAILY@0630 11/11/20 09/21/22 09/03/22 History release cholecalciferol (vitamin D3) 50 50 mcg PO DAILY 07/11/22 09/21/22 09/03/22 History mcg (2,000 unit) tablet empagliflozin 10 mg tablet 10 mg PO DAILY 07/11/22 09/21/22 09/03/22 History (Jardiance) acetaminophen 325 mg tablet 650 mg PO Q6H PRN Fever Or Pain 09/21/22 09/21/22 Unknown History bisacodyl 10 mg rectal suppository 10 mg LA DAILY PRN Constipation 09/21/22 09/21/22 Unknown History magnesium hydroxide 400 mg/5 mL 30 ml PO DAILY PRN Constipation 09/21/22 09/21/22 Unknown History oral suspension (Milk of Magnesia) sodium phosphates 19 gram-7 118 ml LA DAILY PRN Constipation 09/21/22 09/21/22 Unknown History gram/118 mL enema (Fleet Enema) Physical Exam Vital Signs: Vital Signs: Last Vital Signs Temp 97.0 F 09/26/22 15:12 Pulse 93 09/26/22 15:12 Resp 18 09/26/22 15:12 BP 105/56 L 09/26/22 15:12 Pulse Ox 98 09/26/22 15:12 O2 Del Method Room Air 09/26/22 15:12 BMI result Body Mass Index 24.3 Const: General: cooperative HEENT: Head: Yes normal to inspection Face and sinus: Yes normal facial exam Mouth: Normal oral and palatal mucosa present Teeth and gingiva: dentition normal Eyes: General: appearance normal, both eyes and all related structures Pupils: Equal, round and reactive pupils present Resp: Effort & Inspection: normal respiratory effort Cardio: Rate: regular rate Rhythm: regular rhythm GI: Palpation (GI): Soft to palpation and nontender : General: Yes no CVA tenderness Back/Spine/Pelvis: Back: no CVA tenderness Skin: General skin exam: no rashes or lesions noted Neuro: General: moves all extremities Cranial nerves: Yes Equal, round and reactive pupils present Extrem: Other: right TMA open area,serosanguinous left scaly scabbed areas foot General: Yes normal to inspection Psych: Appearance: grossly normal Results Labs 09/25/22 07:53 09/26/22 05:51 Labs: BMP 09/26/22 05:51 Sodium 136 Potassium 4.6 D Chloride 105 Carbon Dioxide 20 L BUN 63 H Creatinine 2.81 H Calcium 9.0 Microbiology Microbiology Results: Microbiology 09/21/22 00:25 Blood - Venous Blood Culture - Final Enterococcus faecium 09/21/22 00:19 Blood - Venous Blood Culture - Final Enterococcus faecium Assessment and Plan (1) Nonhealing nonsurgical wound: Status: Acute (2) Status post transmetatarsal amputation of right foot: Status: Acute (3) VRE bacteremia: Status: Acute He has VRE bacteremia He has difficulty tolerating Vancomycin and has VRE so linezolid may be only options Plan Linezolid for four weeks. Recheck blood cultures. Check TTE. Vascular evaluation. Time Spent With Patient Time: Total time managing care of this patient today ____ minutes.
[2022-09-26 16:23] LABS: Glucose, Whole Blood 231 mg/dL (60-115)
[2022-09-26 19:33] LABS: Vancomycin Random 18.8 mcg/mL (15-20)
[2022-09-26 19:38] VITALS: BP 114/62; PULSE 100; RESP 18; TEMP 37.6; O2SAT 97
[2022-09-26 20:50] LABS: Glucose, Whole Blood 188 mg/dL (60-115)
[2022-09-26] MEDS: Atorvastatin Calcium 20 MG TABLET PO (21:59)
[2022-09-26] MEDS: Doxazosin Mesylate 2 MG TABLET 4 MG PO (21:59)
[2022-09-27] VITALS (7 sets, daily range): BP systolic 98–111; BP diastolic 55–62; PULSE 85–96; RESP 17–19; TEMP 36.2–36.6; O2SAT 97–100
[2022-09-27] MEDS: Linezolid/D5W 600 MG/300 ML PIGGYBACK 300 MG IV ×2 (00:57→12:15)
[2022-09-27] MEDS: Omeprazole 20 MG CAPSULE.DR PO (05:43)
[2022-09-27 06:17] LABS: Creatinine Clr Calc Pharmacy 20.6; Estimated Glomerular Filt Rate 22
--- NOTE | 2022-09-27 07:00 | CA_ITS ---
Transthoracic Echocardiogram Patient (Last, First, Middle): Jacques Guadarrama A Gender: Male Date of : 1940 Age: 82 Procedure Date: 09/27/2022 Procedure Type: Transthoracic Echocardiogram Location: S3E Height: 175.26 cm Weight: 74.39 kg BSA: 1.90 m2 Heart Rate: 76 bpm BP: 111 / 62 mmHg Sanitarian: JOEY James MD: Jerrod Hilton MD Professor Of German: Presley Corado MD Symptoms: enterococcus bacteremia Study Quality: Technically Difficult ECG Rhythm: Sinus Conclusions: - 1. Technically limited study despite use of contrast agent 2. Valvular vegetations cannot be ruled out on this study 3. On limited views LV systolic function appears preserved with LVEF of about 55% 4. Normal calculated RV systolic pressure Findings Procedure Information Contrast agent, definity, is being given per protocol without apparent complications. Left Ventricle Normal left ventricular size and systolic function. Regional wall motion abnormalities can not be excluded due to suboptimal endocardial definition. Diastolic function is indeterminate on the basis of available data. Right Ventricle The right ventricle was not well visualized. Atria The left atrium was not well visualized. There is no evidence of interatrial shunt. The right atrium was not well visualized. Aortic Valve The aortic valve was not well visualized. Mitral Valve The mitral valve was not well visualized. There is moderate mitral annular calcification. Pulmonic Valve The pulmonic valve was not well visualized. Tricuspid Valve The tricuspid valve was not well visualized. There is no evidence of pulmonary hypertension. Great Vessels The aorta was not well visualized. The pulmonary artery was not well visualized. Venous The inferior vena cava is normal in size and collapses greater than 50% with inspiration. Pericardium/Pleural The pericardium was not well visualized. Measurements 2D Linear Measurements IVSd: 1.40 0.6-0.9/0.6-1.0 cm LVIDd: 5.11 3.9-5.3/4.2-5.9 cm LVIDd Index: 2.69 2.4-3.2/2.2-3.1 cm/m2 LVIDs: 3.60 2.0-3.6 cm LVPWd: 0.85 0.7-1.1 cm LA Diam: 3.10 2.7-3.8/3.0-4.0 cm LAIDs Index: 1.63 1.5-2.3 cm/m2 LV Mass: 275.53 67-162/88-224 g LV Mass Index: 145.01 43-95/49-115 g/m2 LVOT Diam: 2.30 3.0+(-)1.3 cm 2D Systolic Function EF 4C: 57.90 >55% EF 2C: 54.50 >55% EF BiP: 55.20 >55% Mitral Valve MV Pk E: 0.76 MV PK A: 1.09 MV Decel Time: 320.00 E/A: 0.70 E'Lateral: 5.22 E'Medial: 6.42 E/E' Med: 11.90 E/E' Lat: 14.60 PHT: 94.00 MVA PHT: 2.34 Decel Reagan: 2.38 Aortic Valve AoV Pk Michael: 0.95 AoV Mn Michael: 0.72 AoV VTI: 0.21 AoV Pk Grad: 4.00 Aov Mn Grad: 2.00 TRISTAN Cont.VTI: 4.23 LVOT LVOT Pk Michael: 0.95 LVOT Mn Michael: 0.71 LVOT VTI: 0.21 LVOT Pk Grad: 4.00 LVOT Mn Grad: 2.00 LVOT Diam: 2.30 LVOT Area: 4.15 Diastolic Function MV Pk E: 0.76 MV Pk A: 1.09 E/A: 0.70 E'Medial: 6.42 E/E' Med: 11.90 E' Laterial: 5.22 E/E' Lat: 14.60 Right Ventricle TAPSE (mm): 18.80 TVS' Michael: 7.83 Tricuspid Valve TR Pk Michael: 2.04 TR Pk Grad: 17.00 RA Press: 8.00 RVSP: 25.00 Great Vessels Aorta Sinus of Valsalva: 3.50 2.0-3.5 cm Pulmonary Valve PV Pk Michael: 0.80 Peak PV Grad: 3.00 Updated in Other Vendor System with Status of Final Presley Corado MD electronically signed on 09/27/2022 4:03:26 PM with status of Final
[2022-09-27 08:03] LABS: Glucose, Whole Blood 183 mg/dL (60-115)
[2022-09-27] MEDS: Insulin Lispro 100 UNIT/ML 3 ML VIAL SUBCUT ×4 (08:20→21:30)
[2022-09-27] MEDS: Ferrous Sulfate 324 MG TABLET.DR PO ×2 (08:20→17:00)
[2022-09-27] MEDS: Finasteride 5 MG TABLET PO (08:20)
[2022-09-27] MEDS: Cholecalciferol (Vitamin D3) 25 MCG TABLET 50 MCG PO (08:21)
[2022-09-27] MEDS: Sodium Bicarbonate 650 MG TABLET PO ×3 (08:21→21:30)
[2022-09-27] MEDS: Metoprolol Tartrate 12.5 MG HALFTAB PO ×2 (08:21→21:29)
[2022-09-27] MEDS: Empagliflozin 10 MG TABLET PO (08:22)
[2022-09-27 11:26] LABS: Glucose, Whole Blood 239 mg/dL (60-115)
--- NOTE | 2022-09-27 12:23 | P.PNIM_ITS ---
Subjective Subjective Date of Service: 09/27/22 Interval History: f/u on infected surgical ampuation site,Enterococcus faecium bacteremia Review of Systems Denies any chest pain or shortness of breath or abdominal pain or fever chills. Physical Exam Vital Signs: Vital Signs: Last Vital Signs Temp 97.2 F 09/27/22 07:34 Pulse 94 09/27/22 07:34 Resp 17 09/27/22 07:34 BP 102/55 L 09/27/22 07:34 Pulse Ox 97 09/27/22 07:34 O2 Del Method Room Air 09/27/22 07:34 BMI result Body Mass Index 24.3 General: AO X 3, no acute distress Resp:? CTA bilateral CVS: S1,S2,RRR GI: +BS, NT, no distention Skin: wound dressing intact s/p bka right leg left heel pressure seems improvin Neuro:? motor grossly intact Psych: appropriate affect Objective Data Active Medications Acetaminophen (Acetaminophen 325 Mg Tablet) 650 mg PO Q6H PRN PRN Reason: Pain, Mild (Pain Scale 1-3) Last Admin: 09/25/22 15:22 Dose: 650 mg Documented By: HERNÁN Acetaminophen (Acetaminophen 325 Mg Tablet) 650 mg PO Q6H PRN PRN Reason: Fever Or Pain Atorvastatin Calcium (Atorvastatin Calcium 20 Mg Tablet) 20 mg PO BEDTIME [facility] Last Admin: 09/26/22 21:59 Dose: 20 mg Documented By: CAPRICE Bisacodyl (Bisacodyl 10 Mg Supp.Rect) 10 mg [place] DAILY PRN PRN Reason: Constipation Dextrose (Dextrose 50 % 25 Gm/50 Ml Syringe) 25 gm IVPUSH Q15M PRN; Protocol PRN Reason: per Hypoglycemia Standing Ord. Doxazosin Mesylate (Doxazosin Mesylate 2 Mg Tablet) 4 mg PO BEDTIME [facility]; Protocol Last Admin: 09/26/22 21:59 Dose: 4 mg Documented By: CAPRICE Empagliflozin (Empagliflozin 10 Mg Tablet) 10 mg PO DAILY [facility] Last Admin: 09/27/22 08:22 Dose: 10 mg Documented By: TADEO Fentanyl (Fentanyl Citrate/Pf 100 Mcg/2 Ml Vial) 12.5 mcg IVPUSH Q5M PRN; Protocol PRN Reason: Pain, Moderate(Pain Scale 4-6) Last Admin: 09/24/22 13:05 Dose: 12.5 mcg Documented By: ASH Ferrous Sulfate (Ferrous Sulfate 324 Mg Tablet.) 324 mg PO BIDWM [facility] Last Admin: 09/27/22 08:20 Dose: 324 mg Documented By: TADEO Finasteride (Finasteride 5 Mg Tablet) 5 mg PO DAILY [facility] Last Admin: 09/27/22 08:20 Dose: 5 mg Documented By: TADEO Glucose (Glucose Gel 15 Gm Gel..Gram.) 15 gm PO Q15M PRN; Protocol PRN Reason: per Hypoglycemia Standing Ord. Promethazine HCl 12.5 mg/ (Sodium Chloride) 50.5 mls @ 202 mls/hr IV ONCE PRN PRN Reason: Nausea and Vomiting Linezolid (Zyvox/D5w) 600 mg in 300 mls @ 300 mls/hr IV Q12H [facility] Last Admin: 09/27/22 12:15 Dose: 300 mls/hr Documented By: TADEO Insulin Human Lispro (Insulin Lispro 100 Unit/Ml 3 Ml Vial) 0 unit SUBCUT QIDACHS [facility]; Protocol Last Admin: 09/27/22 12:15 Dose: 4 unit Documented By: TADEO Magnesium Hydroxide (Milk Of Magnesia 30 Ml Oral.Susp) 30 ml PO DAILY PRN PRN Reason: Constipation Melatonin (Melatonin 3 Mg Tablet) 6 mg PO BEDTIME PRN PRN Reason: Insomnia Metoprolol Tartrate (Metoprolol Tartrate 12.5 Mg Halftab) 12.5 mg PO BID [facility]; Protocol Last Admin: 09/27/22 08:21 Dose: 12.5 mg Documented By: TADEO Omeprazole (Omeprazole 20 Mg Capsule.) 20 mg PO DAILY@0630 [facility] Last Admin: 09/27/22 05:43 Dose: 20 mg Documented By: CAPRICE Ondansetron HCl (Ondansetron Hcl 4 Mg/2 Ml Vial) 4 mg IVPUSH Q8H PRN PRN Reason: Nausea and Vomiting Last Admin: 09/24/22 12:57 Dose: 4 mg Documented By: ASH Ondansetron HCl (Ondansetron Hcl 4 Mg/2 Ml Vial) 4 mg IVPUSH ONCE PRN PRN Reason: Nausea and Vomiting Pharmacy Consult (Consult Rx Perform Med Rec) 1 each MISCELLANE ONCE PRN PRN Reason: Consult order Sodium Bicarbonate (Sodium Bicarbonate 650 Mg Tablet) 650 mg PO TID [facility] Last Admin: 09/27/22 08:21 Dose: 650 mg Documented By: TADEO Sodium Biphosphate/Sodium Phosphate (Sodium Phosphate,[place]-Dibasic 133 Ml Enema) 118 ml [place] DAILY PRN PRN Reason: Constipation Sodium Chloride (0.9 % Sodium Chloride Flush 3 Ml Syringe) 3 ml IVFLUSH QSHIFT [facility] Last Admin: 09/27/22 08:22 Dose: 3 ml Documented By: TADEO Vitamin D (Cholecalciferol (Vitamin D3) 25 Mcg Tablet) 50 mcg PO DAILY [facility] Last Admin: 09/27/22 08:21 Dose: 50 mcg Documented By: TADEO Labs 09/25/22 07:53 09/27/22 05:35 Labs: Laboratory Results - last 24 hr 09/26/22 09/26/22 09/26/22 16:18 18:25 20:47 Estim Creat Clear Calc Estimated GFR POC Glucose 231 H 188 H Random Vancomycin 18.8 09/27/22 09/27/22 09/27/22 05:35 07:42 11:22 Estim Creat Clear Calc 20.6 Estimated GFR 22 POC Glucose 183 H 239 H Random Vancomycin Assessment and Plan (1) Status post below knee amputation of right lower extremity: Status: Acute (2) Acute on chronic renal failure: Status: Acute (3) Bladder cancer: Status: Inactive Plan 81 years old male with PMH of CKD, CHF, recent OM, DM, HTN , PAD among others admitted on 09/03/22 to Vascular surgery service by Dr. Land and underwent elective? Right great toe ampuation due to Nonhealing diabetic foot ulcer,? followed by Right TMA on 09/13/22, and was discharge on 09/19 and went to the wound clinic 09/20 and noted to have drainage, ordor and concern for infection and sent to the ED and admitted again. Right great toe diabetic foot ulcer s/p right toe ampuation on 09/03, and was not healing well with possible infection so underwent right? TMA on 09/13/22 and not healing and looks infected after discharge, readmitted and? Will s/p bka,has Enterococcus faecium bacteremia: vanco trough 20.4 (Enterococcus faecium not senstive to vanco) Id eval-blood culture grew Enterococcus faecium: Patient started on linezolid.repeat blood cultures pendin added echo. also has left heel pressure area : added wound care consult. Acute on Chronic anemia 2/2 CKD 3--Stable. DMII--Jardiance and SSI. Hypertension--controlled on Metoprolol. hemtauria: has history of bladder cancer Still has punch colored urine Urology evaluation added DVT prophylaxis scd due to hematuria. Need for inpatient: enterococcus bacteremia - need IV Abx,need repeat blood cultures ,echo , urology evaluation pending for hematuria. Time Spent With Patient Time: Total time managing care of this patient today ____ minutes. Quality Stroke Does the patient have a stroke diagnosis?: No VTE Prior VTE?: No VTE Risk Level:: Medical - moderate - high VTE Device Contraindication: Treatment Not Indicated VTE Drug Contraindication: Treatment Not Indicated
--- NOTE | 2022-09-27 12:55 | MHC.CM.PN ---
Patient has bacteremia. Blood cultures pending. Patient will require LT IV ABX at [facility]. The facility has been notified of the DP. A PT eval, PICC line insertion and insurance authorization are pending. DP [facility] via BLS.
--- NOTE | 2022-09-27 16:00 | P.CONWO_ITS ---
History of Present Illness Data of Consult Service Date: 09/27/22 Requesting physician: Jerrod Hilton Primary Care Provider: RADHA Bonilla HPI Reason for consult: Left heel wound The patient is an 82-year-old male known to us at wound care for right foot wounds which unfortunately has led to a right BKA during this hospitalization. He has been through several staged operations on his right lower extremity from a toe amp to TMA to now right BKA. It seems unfortunately that he has developed a left heel pressure wound in the process. Review of Systems Review of Systems: Yes all other systems are reviewed and are negative [facility] Medical History (Updated 09/27/22 @ 16:08 by Bridgett Zamora MD) Acute osteomyelitis Back pain Bladder cancer CKD (chronic kidney disease) CKD (chronic kidney disease) stage 3, GFR 30-59 ml/min Congestive heart failure with LV diastolic dysfunction, NYHA class 3 Decubitus ulcer, heel Diabetes mellitus Gram-negative bacteremia H/O cardiac pacemaker Heart block History of COVID-19 Hydronephrosis Hyperlipidemia Hypertension Infection of right foot Iron deficiency anemia PAD (peripheral artery disease) Type 2 diabetes mellitus with unspecified complications Ulcer of left heel Ulcer of right 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 Urinary retention VRE bacteremia Family History Brother Testicular cancer Surgical History History of atherectomy History of back surgery History of esophagogastroduodenoscopy History of left hip replacement Hx of cataract extraction Hx of colonoscopy Social History Household Members: Spouse Household Members Other:: 2 Housing: House Do you presently have visiting nurse or other home services: No Alcohol intake: never Patient Tobacco Use Status: Former Tobacco user Quit Date: 15 years Tobacco use type: Cigarette Smoked in Last 30 Days: No Second Hand Smoke Exposure: No Use of substances other than those prescribed or required for medical reasons: No Currently Displaying Signs/Symptoms of Drug Intoxication Withdrawal: No Have you been hit, kicked, punched, or otherwise hurt by someone within the past year? If so, by whom?: No Do you feel safe in your current relationship?: No Is there a partner from a previous relationship who is making you feel unsafe now?: No Are you made to feel afraid or neglected: No Are you DNR?: No Advance Directives: Yes Advance Directives Information Provided: No Advance Directives on File: Yes Advance Directives Date on File: 07/12/22 Do you have thoughts of harming others: None Do you have a plan to hurt others: No Plan Recently lost weight without trying: No Eating poorly because of decreased appetite: No Nutrition Risks: No Nutritional Risk Poor oral hygiene: No service: No Current occupational status: retired Meds Allergies Allergy/AdvReac Type Severity Reaction Status Date / Time lisinopril [LISINOPRIL] Allergy Severe ANGIOEDEMA Verified 08/30/22 10:56 Active Medications: Current Medications Acetaminophen (Acetaminophen 325 Mg Tablet) 650 mg PO Q6H PRN PRN Reason: Pain, Mild (Pain Scale 1-3) Last Admin: 09/25/22 15:22 Dose: 650 mg Acetaminophen (Acetaminophen 325 Mg Tablet) 650 mg PO Q6H PRN PRN Reason: Fever Or Pain Atorvastatin Calcium (Atorvastatin Calcium 20 Mg Tablet) 20 mg PO BEDTIME [facility] Last Admin: 09/26/22 21:59 Dose: 20 mg Bisacodyl (Bisacodyl 10 Mg Supp.Rect) 10 mg [place] DAILY PRN PRN Reason: Constipation Dextrose (Dextrose 50 % 25 Gm/50 Ml Syringe) 25 gm IVPUSH Q15M PRN; Protocol PRN Reason: per Hypoglycemia Standing Ord. Doxazosin Mesylate (Doxazosin Mesylate 2 Mg Tablet) 4 mg PO BEDTIME [facility]; Protocol Last Admin: 09/26/22 21:59 Dose: 4 mg Empagliflozin (Empagliflozin 10 Mg Tablet) 10 mg PO DAILY [facility] Last Admin: 09/27/22 08:22 Dose: 10 mg Fentanyl (Fentanyl Citrate/Pf 100 Mcg/2 Ml Vial) 12.5 mcg IVPUSH Q5M PRN; Protocol PRN Reason: Pain, Moderate(Pain Scale 4-6) Last Admin: 09/24/22 13:05 Dose: 12.5 mcg Ferrous Sulfate (Ferrous Sulfate 324 Mg Tablet.) 324 mg PO BIDWM [facility] Last Admin: 09/27/22 08:20 Dose: 324 mg Finasteride (Finasteride 5 Mg Tablet) 5 mg PO DAILY [facility] Last Admin: 09/27/22 08:20 Dose: 5 mg Glucose (Glucose Gel 15 Gm Gel..Gram.) 15 gm PO Q15M PRN; Protocol PRN Reason: per Hypoglycemia Standing Ord. Promethazine HCl 12.5 mg/ (Sodium Chloride) 50.5 mls @ 202 mls/hr IV ONCE PRN PRN Reason: Nausea and Vomiting Linezolid (Zyvox/D5w) 600 mg in 300 mls @ 300 mls/hr IV Q12H [facility] Last Infusion: 09/27/22 14:20 Dose: Infused Insulin Human Lispro (Insulin Lispro 100 Unit/Ml 3 Ml Vial) 0 unit SUBCUT QIDACHS [facility]; Protocol Last Admin: 09/27/22 12:15 Dose: 4 unit Magnesium Hydroxide (Milk Of Magnesia 30 Ml Oral.Susp) 30 ml PO DAILY PRN PRN Reason: Constipation Melatonin (Melatonin 3 Mg Tablet) 6 mg PO BEDTIME PRN PRN Reason: Insomnia Metoprolol Tartrate (Metoprolol Tartrate 12.5 Mg Halftab) 12.5 mg PO BID [facility]; Protocol Last Admin: 09/27/22 08:21 Dose: 12.5 mg Omeprazole (Omeprazole 20 Mg Capsule.Dr) 20 mg PO DAILY@0630 [facility] Last Admin: 09/27/22 05:43 Dose: 20 mg Ondansetron HCl (Ondansetron Hcl 4 Mg/2 Ml Vial) 4 mg IVPUSH Q8H PRN PRN Reason: Nausea and Vomiting Last Admin: 09/24/22 12:57 Dose: 4 mg Ondansetron HCl (Ondansetron Hcl 4 Mg/2 Ml Vial) 4 mg IVPUSH ONCE PRN PRN Reason: Nausea and Vomiting Pharmacy Consult (Consult Rx Perform Med Rec) 1 each MISCELLANE ONCE PRN PRN Reason: Consult order Sodium Bicarbonate (Sodium Bicarbonate 650 Mg Tablet) 650 mg PO TID [facility] Last Admin: 09/27/22 14:20 Dose: 650 mg Sodium Biphosphate/Sodium Phosphate (Sodium Phosphate,[place]-Dibasic 133 Ml Enema) 118 ml [place] DAILY PRN PRN Reason: Constipation Sodium Chloride (0.9 % Sodium Chloride Flush 3 Ml Syringe) 3 ml IVFLUSH QSHIFT [facility] Last Admin: 09/27/22 08:22 Dose: 3 ml Vitamin D (Cholecalciferol (Vitamin D3) 25 Mcg Tablet) 50 mcg PO DAILY [facility] Last Admin: 09/27/22 08:21 Dose: 50 mcg Home Medications Medication Instructions Recorded Confirmed Last Taken Type simvastatin 40 mg tablet 40 mg PO BEDTIME 03/17/20 09/21/22 09/02/22 History blood sugar diagnostic (OneTouch #10 ea 11/11/20 09/03/22 09/03/22 History Verio test strips) pantoprazole 20 mg tablet,delayed 20 mg PO DAILY@0630 11/11/20 09/21/22 09/03/22 History release cholecalciferol (vitamin D3) 50 50 mcg PO DAILY 07/11/22 09/21/22 09/03/22 H istory mcg (2,000 unit) tablet empagliflozin 10 mg tablet 10 mg PO DAILY 07/11/22 09/21/22 09/03/22 History (Jardiance) acetaminophen 325 mg tablet 650 mg PO Q6H PRN Fever Or Pain 09/21/22 09/21/22 Unknown History bisacodyl 10 mg rectal suppository 10 mg [place] DAILY PRN Constipation 09/21/22 09/21/22 Unknown History magnesium hydroxide 400 mg/5 mL 30 ml PO DAILY PRN Constipation 09/21/22 09/21/22 Unknown History oral suspension (Milk of Magnesia) sodium phosphates 19 gram-7 118 ml [place] DAILY PRN Constipation 09/21/22 09/21/22 Unknown History gram/118 mL enema (Fleet Enema) Physical Exam Vital Signs and Narrative: Vital Signs: Last Vital Signs Temp 97.1 F 09/27/22 15:18 Pulse 85 09/27/22 15:18 Resp 19 09/27/22 15:18 BP 98/57 L 09/27/22 15:18 Pulse Ox 98 09/27/22 15:18 O2 Del Method Room Air 09/27/22 15:18 BMI result Body Mass Index 24.3 Skin: Other: Right BKA wound is all dressed and looks good The left posterior heel has a 4 x 2.5 cm open wound down into the fatty tissue. Patient is able to move his foot well. There is no evidence of any infection Results Labs 09/25/22 07:53 09/27/22 05:35 Labs: Laboratory Results - last 24 hr 09/26/22 09/26/22 09/26/22 16:18 18:25 20:47 Estim Creat Clear Calc Estimated GFR POC Glucose 231 H 188 H Random Vancomycin 18.8 09/27/22 09/27/22 09/27/22 05:35 07:42 11:22 Estim Creat Clear Calc 20.6 Estimated GFR 22 POC Glucose 183 H 239 H Random Vancomycin Assessment and Plan (1) Pressure injury of left heel, stage 3: Status: Acute Plan 82-year-old male with left heel wound which appears to be a pressure injury stage III. Plan is to use triad dressing to this and change daily. Plan to also offload with suspending the heel on pillows consider air bunny boot at night time. When patient gets discharged he can follow up with us in the Wound Care Clinic Time Spent With Patient Time: Total time managing care of this patient today ____ minutes.
[2022-09-27 16:15] LABS: Glucose, Whole Blood 250 mg/dL (60-115)
[2022-09-27 20:49] LABS: Glucose, Whole Blood 246 mg/dL (60-115)
[2022-09-27] MEDS: Doxazosin Mesylate 2 MG TABLET 4 MG PO (21:29)
[2022-09-27] MEDS: Atorvastatin Calcium 20 MG TABLET PO (21:30)
[2022-09-28] MEDS: Linezolid/D5W 600 MG/300 ML PIGGYBACK 300 MG IV ×2 (01:46→14:15)
[2022-09-28 03:42] VITALS: BP 100/60; PULSE 70; RESP 17; TEMP 36.6; O2SAT 96
[2022-09-28] MEDS: Omeprazole 20 MG CAPSULE.DR PO (05:57)
[2022-09-28 07:12] LABS: Creatinine Clr Calc Pharmacy 21.1; Estimated Glomerular Filt Rate 22
[2022-09-28 08:00] VITALS: BP 97/55; PULSE 91; RESP 18; TEMP 36.1; O2SAT 97
[2022-09-28 08:55] LABS: Glucose, Whole Blood 169 mg/dL (60-115)
[2022-09-28] MEDS: Sodium Bicarbonate 650 MG TABLET PO ×3 (09:04→20:38)
[2022-09-28] MEDS: Empagliflozin 10 MG TABLET PO (09:04)
[2022-09-28] MEDS: Metoprolol Tartrate 12.5 MG HALFTAB PO ×2 (09:04→20:38)
[2022-09-28] MEDS: Finasteride 5 MG TABLET PO (09:04)
[2022-09-28] MEDS: Cholecalciferol (Vitamin D3) 25 MCG TABLET 50 MCG PO (09:04)
[2022-09-28] MEDS: Ferrous Sulfate 324 MG TABLET.DR PO ×2 (09:05→16:34)
[2022-09-28] MEDS: Insulin Lispro 100 UNIT/ML 3 ML VIAL SUBCUT ×4 (09:05→20:38)
--- NOTE | 2022-09-28 10:49 | MHC.CLN ---
F/U DIET=DIABETIC 1800 KCALS-APPROPRIATE. SKIN WITH STAGE III TO LEFT HEEL; RIGHT BKA. MOST RECENT INTAKE 25-100%, WITH MOST MEALS APPROX 75%. LABS REVIEWED. CONTINUES WITH ELEVATED Cr. FOLLOW FOR INTAKE, LABS, AND WOUND HEALING.
[2022-09-28 11:20] LABS: Glucose, Whole Blood 223 mg/dL (60-115)
--- NOTE | 2022-09-28 11:44 | HO.PM.IMPN ---
Subjective Subjective Date of Service: 09/28/22 Interval History: f/u on infected surgical ampuation site,Enterococcus faecium bacteremia Review of Systems Denies any chest pain or shortness of breath or abdominal pain or fever chills. Physical Exam Vital Signs: Vital Signs: Last Vital Signs Temp 97.0 F 09/28/22 08:00 Pulse 91 09/28/22 08:00 Resp 18 09/28/22 08:00 BP 97/55 L 09/28/22 08:00 Pulse Ox 97 09/28/22 08:00 O2 Del Method Room Air 09/28/22 08:00 BMI result Body Mass Index 24.3 General: AO X 3, no acute distress Resp:? CTA bilateral CVS: S1,S2,RRR GI: +BS, NT, no distention Skin: wound dressing intact s/p bka right leg left heel pressure seems improvin Neuro:? motor grossly intact Psych: appropriate affect Objective Data Active Medications Acetaminophen (Acetaminophen 325 Mg Tablet) 650 mg PO Q6H PRN PRN Reason: Pain, Mild (Pain Scale 1-3) Last Admin: 09/25/22 15:22 Dose: 650 mg Documented By: HERNÁN Acetaminophen (Acetaminophen 325 Mg Tablet) 650 mg PO Q6H PRN PRN Reason: Fever Or Pain Atorvastatin Calcium (Atorvastatin Calcium 20 Mg Tablet) 20 mg PO BEDTIME [facility] Last Admin: 09/27/22 21:30 Dose: 20 mg Documented By: JONATHAN Bisacodyl (Bisacodyl 10 Mg Supp.Rect) 10 mg [place] DAILY PRN PRN Reason: Constipation Dextrose (Dextrose 50 % 25 Gm/50 Ml Syringe) 25 gm IVPUSH Q15M PRN; Protocol PRN Reason: per Hypoglycemia Standing Ord. Doxazosin Mesylate (Doxazosin Mesylate 2 Mg Tablet) 4 mg PO BEDTIME [facility]; Protocol Last Admin: 09/27/22 21:29 Dose: 4 mg Documented By: JONATHAN Empagliflozin (Empagliflozin 10 Mg Tablet) 10 mg PO DAILY [facility] [place] Last Admin: 09/28/22 09:04 Dose: 10 mg Documented By: GENEVIEVE Fentanyl (Fentanyl Citrate/Pf 100 Mcg/2 Ml Vial) 12.5 mcg IVPUSH Q5M PRN; Protocol PRN Reason: Pain, Moderate(Pain Scale 4-6) Last Admin: 09/24/22 13:05 Dose: 12.5 mcg Documented By: ASH Ferrous Sulfate (Ferrous Sulfate 324 Mg Tablet.) 324 mg PO BIDWM [facility] Last Admin: 09/28/22 09:05 Dose: 324 mg Documented By: GENEVIEVE Finasteride (Finasteride 5 Mg Tablet) 5 mg PO DAILY [facility] Last Admin: 09/28/22 09:04 Dose: 5 mg Documented By: GENEVIEVE Glucose (Glucose Gel 15 Gm Gel..Gram.) 15 gm PO Q15M PRN; Protocol PRN Reason: per Hypoglycemia Standing Ord. Promethazine HCl 12.5 mg/ (Sodium Chloride) 50.5 mls @ 202 mls/hr IV ONCE PRN PRN Reason: Nausea and Vomiting Linezolid (Zyvox/D5w) 600 mg in 300 mls @ 300 mls/hr IV Q12H [facility] Last Infusion: 09/28/22 03:21 Dose: 0 mls/hr Documented By: JONATHAN Insulin Human Lispro (Insulin Lispro 100 Unit/Ml 3 Ml Vial) 0 unit SUBCUT QIDACHS [facility]; Protocol Last Admin: 09/28/22 09:05 Dose: 2 unit Documented By: GENEVIEVE Magnesium Hydroxide (Milk Of Magnesia 30 Ml Oral.Susp) 30 ml PO DAILY PRN PRN Reason: Constipation Melatonin (Melatonin 3 Mg Tablet) 6 mg PO BEDTIME PRN PRN Reason: Insomnia Metoprolol Tartrate (Metoprolol Tartrate 12.5 Mg Halftab) 12.5 mg PO BID [facility]; Protocol Last Admin: 09/28/22 09:04 Dose: 12.5 mg Documented By: GENEVIEVE Omeprazole (Omeprazole 20 Mg Capsule.) 20 mg PO DAILY@0630 [facility] Last Admin: 09/28/22 05:57 Dose: 20 mg Documented By: SADAF Ondansetron HCl (Ondansetron Hcl 4 Mg/2 Ml Vial) 4 mg IVPUSH Q8H PRN PRN Reason: Nausea and Vomiting Last Admin: 09/24/22 12:57 Dose: 4 mg Documented By: ASH Ondansetron HCl (Ondansetron Hcl 4 Mg/2 Ml Vial) 4 mg IVPUSH ONCE PRN PRN Reason: Nausea and Vomiting Pharmacy Consult (Consult Rx Perform Med Rec) 1 each MISCELLANE ONCE PRN PRN Reason: Consult order Sodium Bicarbonate (Sodium Bicarbonate 650 Mg Tablet) 650 mg PO TID [facility] [place] Last Admin: 09/28/22 09:04 Dose: 650 mg Documented By: GENEVIEVE Sodium Biphosphate/Sodium Phosphate (Sodium Phosphate,[place]-Dibasic 133 Ml Enema) 118 ml [place] DAILY PRN PRN Reason: Constipation Sodium Chloride (0.9 % Sodium Chloride Flush 3 Ml Syringe) 3 ml IVFLUSH QSHIFT [facility] [place] Last Admin: 09/28/22 09:05 Dose: 3 ml Documented By: GENEVIEVE Vitamin D (Cholecalciferol (Vitamin D3) 25 Mcg Tablet) 50 mcg PO DAILY [facility] [place] Last Admin: 09/28/22 09:04 Dose: 50 mcg Documented By: GENEVIEVE Labs 09/25/22 07:53 09/28/22 05:50 Labs: Laboratory Results - last 24 hr 09/27/22 09/27/22 09/28/22 16:08 20:46 05:50 Estim Creat Clear Calc 21.1 Estimated GFR 22 POC Glucose 250 H 246 H 09/28/22 09/28/22 08:21 11:07 Estim Creat Clear Calc Estimated GFR POC Glucose 169 H 223 H Microbiology Microbiology Results: Microbiology 09/26/22 15:07 Blood Culture - Preliminary Blood - Venous Prelim: GPC Gram Stain only 09/26/22 15:07 Blood Culture - Preliminary Blood - Venous Prelim: GPC Gram Stain only Assessment and Plan (1) Status post below knee amputation of right lower extremity: Status: Acute (2) Acute on chronic renal failure: Status: Acute (3) Bladder cancer: Status: Inactive Plan 81 years old male with PMH of CKD, CHF, recent OM, DM, HTN , PAD among others admitted on 09/03/22 to Vascular surgery service by Dr. Land and underwent elective? Right great toe ampuation due to Nonhealing diabetic foot ulcer,? followed by Right TMA on 09/13/22, and was discharge on 09/19 and went to the wound clinic 09/20 and noted to have drainage, ordor and concern for infection and sent to the ED and admitted again. Right great toe diabetic foot ulcer s/p right toe ampuation on 09/03, and was not healing well with possible infection so underwent right? TMA on 09/13/22 and not healing and looks infected after discharge, readmitted and? Will s/p bka,has Enterococcus faecium bacteremia: vanco trough 20.4 (Enterococcus faecium not senstive to vanco) blood culture grew Enterococcus faecium,repeat blood cultures -gram positive cocci/chains , will send another blood culture. echo:1. Technically limited study despite use of contrast agent ? ? 2. Valvular vegetations cannot be ruled out on this study? 3. On limited views LV systolic function appears preserved with? LVEF of about 55%? 4. Normal calculated RV systolic pressur. also has left heel pressure area : wound care consult noted . Id eval following-continue linezolid,await for blood culture from today.may need SIVAKUMAR if persistent positive blood cultures. Acute on Chronic anemia 2/2 CKD 3--Stable. DMII--Jardiance and SSI. Hypertension--controlled on Metoprolol. hemtauria: has history of bladder cancer hematuria imrpoing Urology evaluation pending DVT prophylaxis scd due to hematuria. Need for inpatient: enterococcus bacteremia - need IV Abx,need repeat blood cultures ,echo , urology evaluation pending for hematuria. Time Spent With Patient Time: Total time managing care of this patient today ____ minutes. Quality Stroke Does the patient have a stroke diagnosis?: No VTE Prior VTE?: No VTE Risk Level:: Medical - moderate - high VTE Device Contraindication: Treatment Not Indicated VTE Drug Contraindication: Treatment Not Indicated
[2022-09-28] MEDS: Albumin Human 25 % 100 ML IV ×3 (12:03→22:54)
[2022-09-28] MEDS: Clotrimazole 1 % Cream 15 GM TUBE 1 APPL TOPICAL ×2 (13:17→20:39)
[2022-09-28] MEDS: Nystatin Powder 15 GM BOTTLE 1 APPL TOPICAL ×2 (13:18→20:39)
--- NOTE | 2022-09-28 13:57 | MHC.CM.PN ---
Addendum entered by Chrissy Caldwell 09/28/22 14:04: DP BIANCA @ [facility], via BLS. Original Note: No discharge today. Patient is not medically cleared. He is scheduled for a SIVAKUMAR Saturday. Blood cultures are pending. A PICC line will be inserted for LT ABX, once cultures clear.
[2022-09-28 14:59] VITALS: BP 103/55; PULSE 83; RESP 16; TEMP 36.1; O2SAT 97
[2022-09-28 16:09] LABS: Glucose, Whole Blood 271 mg/dL (60-115)
[2022-09-28 19:00] VITALS: BP 126/70; PULSE 97; RESP 14; TEMP 36.1; O2SAT 96
[2022-09-28 20:26] LABS: Glucose, Whole Blood 241 mg/dL (60-115)
[2022-09-28] MEDS: Doxazosin Mesylate 2 MG TABLET 4 MG PO (20:38)
[2022-09-28] MEDS: Atorvastatin Calcium 20 MG TABLET PO (20:38)
[2022-09-29 03:08] VITALS: BP 112/59; PULSE 92; RESP 18; TEMP 36.6; O2SAT 94
[2022-09-29] MEDS: Linezolid/D5W 600 MG/300 ML PIGGYBACK 300 MG IV ×2 (04:50→14:17)
[2022-09-29] MEDS: Albumin Human 25 % 100 ML IV (06:22)
[2022-09-29] MEDS: Omeprazole 20 MG CAPSULE.DR PO (06:22)
[2022-09-29 07:18] VITALS: BP 107/58; PULSE 91; RESP 18; TEMP 36.1; O2SAT 96
[2022-09-29 07:57] LABS: Glucose, Whole Blood 204 mg/dL (60-115)
[2022-09-29] MEDS: Insulin Lispro 100 UNIT/ML 3 ML VIAL SUBCUT ×4 (08:25→21:14)
[2022-09-29] MEDS: Metoprolol Tartrate 12.5 MG HALFTAB PO ×2 (08:26→20:32)
[2022-09-29] MEDS: Empagliflozin 10 MG TABLET PO (08:26)
[2022-09-29] MEDS: Nystatin Powder 15 GM BOTTLE 1 APPL TOPICAL ×2 (08:26→20:33)
[2022-09-29] MEDS: Ferrous Sulfate 324 MG TABLET.DR PO ×2 (08:26→17:41)
[2022-09-29] MEDS: Sodium Bicarbonate 650 MG TABLET PO ×3 (08:26→20:32)
[2022-09-29] MEDS: Finasteride 5 MG TABLET PO (08:26)
[2022-09-29] MEDS: Cholecalciferol (Vitamin D3) 25 MCG TABLET 50 MCG PO (08:26)
--- NOTE | 2022-09-29 11:01 | P.PNIM_ITS ---
Subjective Subjective Date of Service: 09/29/22 Interval History: f/u on infected surgical ampuation site,Enterococcus faecium bacteremia Review of Systems Denies any chest pain or shortness of breath or abdominal pain or fever chills. Physical Exam Vital Signs: Vital Signs: Last Vital Signs Temp 97.0 F 09/29/22 07:18 Pulse 91 09/29/22 07:18 Resp 18 09/29/22 07:18 BP 107/58 L 09/29/22 07:18 Pulse Ox 96 09/29/22 07:18 O2 Del Method Room Air 09/29/22 07:18 BMI result Body Mass Index 24.3 General: AO X 3, no acute distress Resp:? CTA bilateral CVS: S1,S2,RRR GI: +BS, NT, no distention Skin: wound dressing intact s/p bka right leg left heel pressure seems similar ,no new changes Neuro:? motor grossly intact Psych: appropriate affect Objective Data Active Medications Acetaminophen (Acetaminophen 325 Mg Tablet) 650 mg PO Q6H PRN PRN Reason: Pain, Mild (Pain Scale 1-3) Last Admin: 09/25/22 15:22 Dose: 650 mg Documented By: HERNÁN Acetaminophen (Acetaminophen 325 Mg Tablet) 650 mg PO Q6H PRN PRN Reason: Fever Or Pain Atorvastatin Calcium (Atorvastatin Calcium 20 Mg Tablet) 20 mg PO BEDTIME [facility] Last Admin: 09/28/22 20:38 Dose: 20 mg Documented By: RITA Bisacodyl (Bisacodyl 10 Mg Supp.Rect) 10 mg [place] DAILY PRN PRN Reason: Constipation Clotrimazole (Clotrimazole 1 % Cream 15 Gm Tube) 1 appl TOPICAL BID [facility]; Protocol Last Admin: 09/29/22 08:27 Dose: Not Given Documented By: ROLAND Non-Admin Reason: Patient Refused Dextrose (Dextrose 50 % 25 Gm/50 Ml Syringe) 25 gm IVPUSH Q15M PRN; Protocol PRN Reason: per Hypoglycemia Standing Ord. Doxazosin Mesylate (Doxazosin Mesylate 2 Mg Tablet) 4 mg PO BEDTIME [facility]; Protocol Last Admin: 09/28/22 20:38 Dose: 4 mg Documented By: RITA Empagliflozin (Empagliflozin 10 Mg Tablet) 10 mg PO DAILY [facility] Last Admin: 09/29/22 08:26 Dose: 10 mg Documented By: ROLAND Fentanyl (Fentanyl Citrate/Pf 100 Mcg/2 Ml Vial) 12.5 mcg IVPUSH Q5M PRN; Protocol PRN Reason: Pain, Moderate(Pain Scale 4-6) Last Admin: 09/24/22 13:05 Dose: 12.5 mcg Documented By: ASH Ferrous Sulfate (Ferrous Sulfate 324 Mg Tablet.) 324 mg PO BIDWM [facility] Last Admin: 09/29/22 08:26 Dose: 324 mg Documented By: ROLAND Finasteride (Finasteride 5 Mg Tablet) 5 mg PO DAILY [facility] Last Admin: 09/29/22 08:26 Dose: 5 mg Documented By: ROLAND Glucose (Glucose Gel 15 Gm Gel..Gram.) 15 gm PO Q15M PRN; Protocol PRN Reason: per Hypoglycemia Standing Ord. Promethazine HCl 12.5 mg/ (Sodium Chloride) 50.5 mls @ 202 mls/hr IV ONCE PRN PRN Reason: Nausea and Vomiting Linezolid (Zyvox/D5w) 600 mg in 300 mls @ 300 mls/hr IV Q12H [facility] Last Infusion: 09/29/22 06:31 Dose: 300 mls/hr Documented By: MARISA Insulin Human Lispro (Insulin Lispro 100 Unit/Ml 3 Ml Vial) 0 unit SUBCUT QIDACHS [facility]; Protocol Last Admin: 09/29/22 08:25 Dose: 4 unit Documented By: ROLAND Magnesium Hydroxide (Milk Of Magnesia 30 Ml Oral.Susp) 30 ml PO DAILY PRN PRN Reason: Constipation Melatonin (Melatonin 3 Mg Tablet) 6 mg PO BEDTIME PRN PRN Reason: Insomnia Metoprolol Tartrate (Metoprolol Tartrate 12.5 Mg Halftab) 12.5 mg PO BID [facility]; Protocol Last Admin: 09/29/22 08:26 Dose: 12.5 mg Documented By: ROLAND Nystatin (Nystatin Powder 15 Gm Bottle) 1 appl TOPICAL BID [facility]; Protocol Last Admin: 09/29/22 08:26 Dose: 1 appl Documented By: ROLAND Omeprazole (Omeprazole 20 Mg Capsule.) 20 mg PO DAILY@0630 [facility] Last Admin: 09/29/22 06:22 Dose: 20 mg Documented By: MARISA Ondansetron HCl (Ondansetron Hcl 4 Mg/2 Ml Vial) 4 mg IVPUSH Q8H PRN PRN Reason: Nausea and Vomiting Last Admin: 09/24/22 12:57 Dose: 4 mg Documented By: ASH Ondansetron HCl (Ondansetron Hcl 4 Mg/2 Ml Vial) 4 mg IVPUSH ONCE PRN PRN Reason: Nausea and Vomiting Pharmacy Consult (Consult Rx Perform Med Rec) 1 each MISCELLANE ONCE PRN PRN Reason: Consult order Sodium Bicarbonate (Sodium Bicarbonate 650 Mg Tablet) 650 mg PO TID [facility] Last Admin: 09/29/22 08:26 Dose: 650 mg Documented By: ROLAND Sodium Biphosphate/Sodium Phosphate (Sodium Phosphate,[place]-Dibasic 133 Ml Enema) 118 ml [place] DAILY PRN PRN Reason: Constipation Sodium Chloride (0.9 % Sodium Chloride Flush 3 Ml Syringe) 3 ml IVFLUSH QSHIFT [facility] Last Admin: 09/29/22 08:27 Dose: 3 ml Documented By: ROLAND Vitamin D (Cholecalciferol (Vitamin D3) 25 Mcg Tablet) 50 mcg PO DAILY [facility] Last Admin: 09/29/22 08:26 Dose: 50 mcg Documented By: ROLAND Labs 09/25/22 07:53 09/28/22 05:50 Labs: Laboratory Results - last 24 hr 09/28/22 09/28/22 09/28/22 11:07 16:05 20:22 POC Glucose 223 H 271 H 241 H 09/29/22 07:26 POC Glucose 204 H Microbiology Microbiology Results: Microbiology 09/26/22 15:07 Blood Culture - Preliminary Blood - Venous Gram positive cocci 09/26/22 15:07 Blood Culture - Preliminary Blood - Venous Gram positive cocci Assessment and Plan (1) Pressure injury of left heel, stage 3: Status: Acute (2) VRE bacteremia: Status: Acute Plan 81 years old male with PMH of CKD, CHF, recent OM, DM, HTN , PAD among others admitted on 09/03/22 to Vascular surgery service by Dr. Land and underwent elective? Right great toe ampuation due to Nonhealing diabetic foot ulcer,? followed by Right TMA on 09/13/22, and was discharge on 09/19 and went to the wound clinic 09/20 and noted to have drainage, ordor and concern for infection and sent to the ED and admitted again. Right great toe diabetic foot ulcer s/p right toe ampuation on 09/03, and was not healing well with possible infection so underwent right? TMA on 09/13/22 and not healing and looks infected after discharge, readmitted and? Will s/p bka,has Enterococcus faecium bacteremia: vanco trough 20.4 (Enterococcus faecium not senstive to vanco) echo:?Technically limited study despite use of contrast agent ? ? 2. Valvular vegetations cannot be ruled out on this study? 3. On limited views LV systolic function appears preserved with? LVEF of about 55%? 4. Normal calculated RV systolic pressure? ?Id eval-blood culture grew Enterococcus faecium:? Patient started on linezolid.repeat blood cultures-grampositive cocci,added another blood cultures. If persistent bacteremia may need to consider SIVAKUMAR, in addition WBC scan added as per ID. also has left heel pressure area : added wound care consult. Acute on Chronic anemia 2/2 CKD 3--Stable. DMII--Jardiance and SSI. Hypertension--controlled on Metoprolol. ?hemtauria: has history of bladder cancer Still has punch colored urine Urology evaluation added DVT prophylaxis scd due to hematuria. Need for inpatient: enterococcus bacteremia - need IV Abx,need repeat blood cultures-?,if persistent bacteremia may need to consider SIVAKUMAR, in addition WBC scan added as per ID. Time Spent With Patient Time: Total time managing care of this patient today ____ minutes. Quality Stroke Does the patient have a stroke diagnosis?: No VTE Prior VTE?: No VTE Risk Level:: Medical - moderate - high VTE Device Contraindication: Treatment Not Indicated VTE Drug Contraindication: Treatment Not Indicated
[2022-09-29 11:05] LABS: Glucose, Whole Blood 198 mg/dL (60-115)
--- NOTE | 2022-09-29 14:01 | MHC.CM.PN ---
Addendum entered by Candice Gillis RN 09/29/22 14:03: 09/29 PROGRESS NOTE UPLOADED TO [facility] Original Note: PATIENT'S 3RD SET OF CX SENT MAY REQUIRE SIVAKUMAR. NO PLAN FOR DC THIS WEEKEND
[2022-09-29 15:54] VITALS: BP 128/71; PULSE 89; RESP 18; TEMP 36.2; O2SAT 95
[2022-09-29 16:17] LABS: Glucose, Whole Blood 299 mg/dL (60-115)
[2022-09-29 19:45] VITALS: BP 117/61; PULSE 94; RESP 20; TEMP 36; O2SAT 97
[2022-09-29] MEDS: Doxazosin Mesylate 2 MG TABLET 4 MG PO (20:32)
[2022-09-29] MEDS: Atorvastatin Calcium 20 MG TABLET PO (20:32)
[2022-09-29 20:38] LABS: Glucose, Whole Blood 228 mg/dL (60-115)
[2022-09-29] MEDS: Clotrimazole 1 % Cream 15 GM TUBE 1 APPL TOPICAL (21:25)
--- NOTE | 2022-09-29 21:53 | PM.EVENT ---
Event Note Date of Service: 09/29/22 Event Note: urine cloudy and clotted. WIll send ua and irrigation PRN Time Spent With Patient Time: Total time managing care of this patient today ____ minutes.
[2022-09-29 22:08] LABS: Appearance Urine Turbid; Color Urine RED; Glucose Urine UA >=1000 mg/dL (Negative); Leukocyte Esterase Urine Moderate (2+) (Negative); Nitrite Urine Negative (Negative); UMIC TRIGGER UACC YES; Urine Blood Large (3+) (Negative); Urine Ketones Negative (Negative); Urine Protein 100 (2+) mg/dL (Neg-Trace)
--- NOTE | 2022-09-29 22:18 | PC.NURSE ---
Cao was not draining,hand irrigated ,obtained small shreds,started draining at first very cloudy urine and than changed to blood tinged urine,Dr. Kimbrough was notified,specimen was sent
[2022-09-29 22:39] LABS: Bacteria Urine 2+ (None Seen); Hyaline Casts Urine 0-2 /LPF (0-2); RBC Urine >20 /HPF (0-2); Squamous Epithelial Cell Urine 0-2 /HPF (0-2); UACC Culture Trigger YES
[2022-09-30] MEDS: Linezolid/D5W 600 MG/300 ML PIGGYBACK 300 MG IV ×2 (02:55→14:32)
[2022-09-30 03:35] VITALS: BP 115/57; PULSE 97; RESP 16; TEMP 36; O2SAT 96
[2022-09-30] MEDS: Omeprazole 20 MG CAPSULE.DR PO (05:59)
[2022-09-30 06:59] VITALS: BP 118/59; PULSE 95; RESP 19; TEMP 36.1; O2SAT 97
[2022-09-30 07:10] LABS: Glucose, Whole Blood 205 mg/dL (60-115)
[2022-09-30] MEDS: Sodium Bicarbonate 650 MG TABLET PO ×3 (07:48→21:14)
[2022-09-30] MEDS: Ferrous Sulfate 324 MG TABLET.DR PO ×2 (07:48→16:18)
[2022-09-30] MEDS: Cholecalciferol (Vitamin D3) 25 MCG TABLET 50 MCG PO (07:48)
[2022-09-30] MEDS: Empagliflozin 10 MG TABLET PO (07:48)
[2022-09-30] MEDS: Metoprolol Tartrate 12.5 MG HALFTAB PO ×2 (07:48→21:14)
[2022-09-30] MEDS: Insulin Lispro 100 UNIT/ML 3 ML VIAL SUBCUT ×4 (07:49→21:14)
[2022-09-30] MEDS: Finasteride 5 MG TABLET PO (07:49)
[2022-09-30] MEDS: Nystatin Powder 15 GM BOTTLE 1 APPL TOPICAL ×2 (07:57→21:19)
[2022-09-30] MEDS: Clotrimazole 1 % Cream 15 GM TUBE 1 APPL TOPICAL ×2 (07:57→21:19)
--- NOTE | 2022-09-30 09:03 | HO.PM.IMPN ---
Subjective Subjective Date of Service: 09/30/22 Interval History: f/u on infected surgical ampuation site,Enterococcus faecium bacteremia Review of Systems Denies any chest pain or shortness of breath or abdominal pain or fever chills. Physical Exam Vital Signs: Vital Signs: Last Vital Signs Temp 97 F 09/30/22 06:59 Pulse 95 09/30/22 06:59 Resp 19 09/30/22 06:59 BP 118/59 L 09/30/22 06:59 Pulse Ox 97 09/30/22 06:59 O2 Del Method Room Air 09/30/22 06:59 BMI result Body Mass Index 24.3 General: AO X 3, no acute distress Resp:? CTA bilateral CVS: S1,S2,RRR GI: +BS, NT, no distention Skin: wound dressing intact s/p bka right leg left heel pressure seems similar ,no new changes Neuro:? motor grossly intact Psych: appropriate affect Objective Data Active Medications Acetaminophen (Acetaminophen 325 Mg Tablet) 650 mg PO Q6H PRN PRN Reason: Pain, Mild (Pain Scale 1-3) Last Admin: 09/25/22 15:22 Dose: 650 mg Documented By: HERNÁN Acetaminophen (Acetaminophen 325 Mg Tablet) 650 mg PO Q6H PRN PRN Reason: Fever Or Pain Atorvastatin Calcium (Atorvastatin Calcium 20 Mg Tablet) 20 mg PO BEDTIME [facility] Last Admin: 09/29/22 20:32 Dose: 20 mg Documented By: RISHI Bisacodyl (Bisacodyl 10 Mg Supp.Rect) 10 mg NE DAILY PRN PRN Reason: Constipation Clotrimazole (Clotrimazole 1 % Cream 15 Gm Tube) 1 appl TOPICAL BID [facility]; Protocol Last Admin: 09/30/22 07:57 Dose: 1 appl Documented By: YVROSE Dextrose (Dextrose 50 % 25 Gm/50 Ml Syringe) 25 gm IVPUSH Q15M PRN; Protocol PRN Reason: per Hypoglycemia Standing Ord. Doxazosin Mesylate (Doxazosin Mesylate 2 Mg Tablet) 4 mg PO BEDTIME [facility]IL; Protocol Last Admin: 09/29/22 20:32 Dose: 4 mg Documented By: RISHI Empagliflozin (Empagliflozin 10 Mg Tablet) 10 mg PO DAILY [facility]IL Last Admin: 09/30/22 07:48 Dose: 10 mg Documented By: YVROSE Ferrous Sulfate (Ferrous Sulfate 324 Mg Tablet.) 324 mg PO BIDWM [facility] Last Admin: 09/30/22 07:48 Dose: 324 mg Documented By: YVROSE Finasteride (Finasteride 5 Mg Tablet) 5 mg PO DAILY [facility] Last Admin: 09/30/22 07:49 Dose: 5 mg Documented By: YVROSE Glucose (Glucose Gel 15 Gm Gel..Gram.) 15 gm PO Q15M PRN; Protocol PRN Reason: per Hypoglycemia Standing Ord. Promethazine HCl 12.5 mg/ (Sodium Chloride) 50.5 mls @ 202 mls/hr IV ONCE PRN PRN Reason: Nausea and Vomiting Linezolid (Zyvox/D5w) 600 mg in 300 mls @ 300 mls/hr IV Q12H [facility] Last Infusion: 09/30/22 04:11 Dose: 0 mls/hr Documented By: ELIER Insulin Human Lispro (Insulin Lispro 100 Unit/Ml 3 Ml Vial) 0 unit SUBCUT QIDACHS [facility]; Protocol Last Admin: 09/30/22 07:49 Dose: 4 unit Documented By: YVROSE Irrigating Solution (Sodium Chloride 0.9 % Irrig So 500 Ml Irrig.Soln) 60 ml IRRIGATION Q4H PRN PRN Reason: Bladder irrigation Magnesium Hydroxide (Milk Of Magnesia 30 Ml Oral.Susp) 30 ml PO DAILY PRN PRN Reason: Constipation Melatonin (Melatonin 3 Mg Tablet) 6 mg PO BEDTIME PRN PRN Reason: Insomnia Metoprolol Tartrate (Metoprolol Tartrate 12.5 Mg Halftab) 12.5 mg PO BID [facility]; Protocol Last Admin: 09/30/22 07:48 Dose: 12.5 mg Documented By: YVROSE Nystatin (Nystatin Powder 15 Gm Bottle) 1 appl TOPICAL BID [facility]; Protocol Last Admin: 09/30/22 07:57 Dose: 1 appl Documented By: YVROSE Omeprazole (Omeprazole 20 Mg Capsule.) 20 mg PO DAILY@0630 [facility] Last Admin: 09/30/22 05:59 Dose: 20 mg Documented By: ELIER Ondansetron HCl (Ondansetron Hcl 4 Mg/2 Ml Vial) 4 mg IVPUSH Q8H PRN PRN Reason: Nausea and Vomiting Last Admin: 09/24/22 12:57 Dose: 4 mg Documented By: ASH Ondansetron HCl (Ondansetron Hcl 4 Mg/2 Ml Vial) 4 mg IVPUSH ONCE PRN PRN Reason: Nausea and Vomiting Pharmacy Consult (Consult Rx Perform Med Rec) 1 each MISCELLANE ONCE PRN PRN Reason: Consult order Sodium Bicarbonate (Sodium Bicarbonate 650 Mg Tablet) 650 mg PO TID [facility] Last Admin: 09/30/22 07:48 Dose: 650 mg Documented By: YVROSE Sodium Biphosphate/Sodium Phosphate (Sodium Phosphate,[place]-Dibasic 133 Ml Enema) 118 ml NE DAILY PRN PRN Reason: Constipation Sodium Chloride (0.9 % Sodium Chloride Flush 3 Ml Syringe) 3 ml IVFLUSH QSHIFT [facility] Last Admin: 09/30/22 07:50 Dose: 3 ml Documented By: YVROSE Vitamin D (Cholecalciferol (Vitamin D3) 25 Mcg Tablet) 50 mcg PO DAILY [facility] Last Admin: 09/30/22 07:48 Dose: 50 mcg Documented By: YVROSE Labs 09/25/22 07:53 09/28/22 05:50 Labs: Laboratory Results - last 24 hr 09/29/22 09/29/22 09/29/22 10:56 16:13 20:33 POC Glucose 198 H 299 H 228 H Urine Color Urine Appearance Urine pH Ur Specific [place] Urine Protein Urine Glucose (UA) Urine Ketones Urine Blood Urine Nitrite Ur Leukocyte Esterase Urine RBC Urine WBC Ur Squamous Epith Cells Urine Bacteria Hyaline Casts 09/29/22 09/30/22 21:51 07:06 POC Glucose 205 H Urine Color RED Urine Appearance Turbid Urine pH 7.0 Ur Specific [place] 1.010 Urine Protein 100 (2+) H Urine Glucose (UA) >=1000 H Urine Ketones Negative Urine Blood Large (3+) H Urine Nitrite Negative Ur Leukocyte Esterase Moderate (2+) H Urine RBC >20 H Urine WBC 11-20 Ur Squamous Epith Cells 0-2 Urine Bacteria 2+ Hyaline Casts 0-2 Microbiology Microbiology Results: Microbiology 09/28/22 09:39 Blood Culture - Preliminary Blood - Venous No growth after 24 hours. 09/28/22 09:39 Blood Culture - Preliminary Blood - Venous No growth after 24 hours. 09/26/22 15:07 Blood Culture - Preliminary Blood - Venous Gram positive cocci 09/26/22 15:07 Blood Culture - Preliminary Blood - Venous Gram positive cocci Assessment and Plan (1) Pressure injury of left heel, stage 3: Status: Acute (2) VRE bacteremia: Status: Acute Plan 81 years old male with PMH of CKD, CHF, recent OM, DM, HTN , PAD among others admitted on 09/03/22 to Vascular surgery service by Dr. Land and underwent elective? Right great toe ampuation due to Nonhealing diabetic foot ulcer,? followed by Right TMA on 09/13/22, and was discharge on 09/19 and went to the wound clinic 09/20 and noted to have drainage, ordor and concern for infection and sent to the ED and admitted again. Right great toe diabetic foot ulcer s/p right toe ampuation on 09/03, and was not healing well with possible infection so underwent right? TMA on 09/13/22 and not healing and looks infected after discharge, readmitted and? Will s/p bka,has Enterococcus faecium bacteremia: vanco trough 20.4 (Enterococcus faecium not senstive to vanco) echo:?Technically limited study despite use of contrast agent ? ? 2. Valvular vegetations cannot be ruled out on this study? 3. On limited views LV systolic function appears preserved with? LVEF of about 55%? 4. Normal calculated RV systolic pressure? ?Id eval-blood culture grew Enterococcus faecium:? Patient started on linezolid.repeat blood cultures-grampositive cocci,added another blood cultures. If persistent bacteremia may need to consider SIVAKUMAR, in addition WBC scan added as per ID. also has left heel pressure area : added wound care consult. Acute on Chronic anemia 2/2 CKD 3--Stable. DMII--Jardiance and SSI. Hypertension--controlled on Metoprolol. ?hemtauria: has history of bladder cancer punch colored urine Urology evaluation DVT prophylaxis scd due to hematuria. Need for inpatient: enterococcus bacteremia - need IV Abx,need repeat blood cultures-?,if persistent bacteremia may need to consider SIVAKUMAR, in addition WBC scan added as per ID.hemturia moniterin,urology input. Time Spent With Patient Time: Total time managing care of this patient today ____ minutes. Quality Stroke Does the patient have a stroke diagnosis?: No VTE Prior VTE?: No VTE Risk Level:: Medical - moderate - high VTE Device Contraindication: Treatment Not Indicated VTE Drug Contraindication: Treatment Not Indicated
[2022-09-30 11:12] LABS: Glucose, Whole Blood 224 mg/dL (60-115)
[2022-09-30 15:36] LABS: Hemoglobin 8.5 g/dl (14.0-18.0)
[2022-09-30 15:48] LABS: Anion Gap 17 (12-20); Blood Urea Nitrogen 55 mg/dL (9-16); Calcium 8.9 mg/dL (8.4-10.2); Carbon Dioxide 17 mmol/L (22-29); Chloride 101 mmol/L (96-108); Creatinine Clr Calc Pharmacy 18.2; Estimated Glomerular Filt Rate 19; Glucose Random 322 mg/dL (60-115); Potassium 4.1 mmol/L (3.3-5.1); Sodium 131 mmol/L (135-145)
[2022-09-30 16:00] VITALS: BP 136/69; PULSE 69; RESP 20; TEMP 35.7; O2SAT 98
[2022-09-30 16:11] LABS: Glucose, Whole Blood 294 mg/dL (60-115)
[2022-09-30] MEDS: cefTRIAXone sodium 1 GM in 0.9 % Sodium Chloride 50 ML IV (16:18)
[2022-09-30 20:00] VITALS: BP 118/56; PULSE 89; RESP 19; TEMP 36.8; O2SAT 98
[2022-09-30 20:44] LABS: Glucose, Whole Blood 241 mg/dL (60-115)
[2022-09-30] MEDS: Acetaminophen 325 MG TABLET 650 MG PO (21:13)
[2022-09-30] MEDS: Atorvastatin Calcium 20 MG TABLET PO (21:14)
[2022-09-30] MEDS: Doxazosin Mesylate 2 MG TABLET 4 MG PO (21:14)
[2022-10-01] MEDS: Linezolid/D5W 600 MG/300 ML PIGGYBACK 300 MG IV ×2 (03:19→17:25)
[2022-10-01 03:38] VITALS: BP 89/62; PULSE 100; RESP 16; TEMP 36.7; O2SAT 94
[2022-10-01] MEDS: Omeprazole 20 MG CAPSULE.DR PO (05:41)
[2022-10-01 06:12] LABS: Hematocrit 26.5 % (42.0-52.0); Hemoglobin 8.4 g/dl (14.0-18.0)
[2022-10-01 06:48] LABS: INTERNATIONAL NORM RATIO 1.1 (0.9-1.1); Prothrombin Time 13.2 SEC (10.0-13.1)
[2022-10-01 07:00] VITALS: BP 92/55; PULSE 92; RESP 20; TEMP 36.3; O2SAT 96
[2022-10-01 07:10] LABS: Glucose, Whole Blood 245 mg/dL (60-115)
[2022-10-01] MEDS: Insulin Lispro 100 UNIT/ML 3 ML VIAL SUBCUT ×4 (08:05→21:11)
[2022-10-01] MEDS: Ferrous Sulfate 324 MG TABLET.DR PO ×2 (08:06→16:57)
[2022-10-01] MEDS: Finasteride 5 MG TABLET PO (08:06)
[2022-10-01] MEDS: Sodium Bicarbonate 650 MG TABLET PO ×3 (08:07→21:10)
[2022-10-01] MEDS: Cholecalciferol (Vitamin D3) 25 MCG TABLET 50 MCG PO (08:07)
[2022-10-01] MEDS: Empagliflozin 10 MG TABLET PO (08:07)
[2022-10-01] MEDS: Nystatin Powder 15 GM BOTTLE 1 APPL TOPICAL ×2 (08:22→21:56)
[2022-10-01] MEDS: Clotrimazole 1 % Cream 15 GM TUBE 1 APPL TOPICAL ×2 (08:24→21:56)
--- NOTE | 2022-10-01 09:24 | HO.PM.IMPN ---
Subjective Subjective Date of Service: 10/01/22 Interval History: f/u on infected surgical ampuation site,Enterococcus faecium bacteremia Review of Systems blood pressure softer ,poor appetite denies any chest pain or sob Physical Exam Vital Signs: Vital Signs: Last Vital Signs Temp 97.4 F 10/01/22 07:00 Pulse 92 10/01/22 07:00 Resp 20 10/01/22 07:00 BP 92/55 L 10/01/22 07:00 Pulse Ox 96 10/01/22 07:00 O2 Del Method Room Air 10/01/22 07:00 BMI result Body Mass Index 24.3 General: AO X 3, no acute distress Resp:? CTA bilateral CVS: S1,S2,RRR GI: +BS, NT, no distention Skin: wound dressing intact s/p bka right leg left heel pressure seems similar ,no new changes Neuro:? motor grossly intact Psych: appropriate affect Objective Data Active Medications Acetaminophen (Acetaminophen 325 Mg Tablet) 650 mg PO Q6H PRN PRN Reason: Pain, Mild (Pain Scale 1-3) Last Admin: 09/30/22 21:13 Dose: 650 mg Documented By: CAPRICE Acetaminophen (Acetaminophen 325 Mg Tablet) 650 mg PO Q6H PRN PRN Reason: Fever Or Pain Atorvastatin Calcium (Atorvastatin Calcium 20 Mg Tablet) 20 mg PO BEDTIME [facility] Last Admin: 09/30/22 21:14 Dose: 20 mg Documented By: CAPRICE Bisacodyl (Bisacodyl 10 Mg Supp.Rect) 10 mg NC DAILY PRN PRN Reason: Constipation Clotrimazole (Clotrimazole 1 % Cream 15 Gm Tube) 1 appl TOPICAL BID [facility]; Protocol Last Admin: 10/01/22 08:24 Dose: 1 appl Documented By: TADEO Dextrose (Dextrose 50 % 25 Gm/50 Ml Syringe) 25 gm IVPUSH Q15M PRN; Protocol PRN Reason: per Hypoglycemia Standing Ord. Doxazosin Mesylate (Doxazosin Mesylate 2 Mg Tablet) 4 mg PO BEDTIME [facility]; Protocol Last Admin: 09/30/22 21:14 Dose: 4 mg Documented By: CAPRICE Empagliflozin (Empagliflozin 10 Mg Tablet) 10 mg PO DAILY [facility] Last Admin: 10/01/22 08:07 Dose: 10 mg Documented By: TADEO Ferrous Sulfate (Ferrous Sulfate 324 Mg Tablet.) 324 mg PO BIDWM [facility] Last Admin: 10/01/22 08:06 Dose: 324 mg Documented By: TADEO Finasteride (Finasteride 5 Mg Tablet) 5 mg PO DAILY [facility] Last Admin: 10/01/22 08:06 Dose: 5 mg Documented By: TADEO Glucose (Glucose Gel 15 Gm Gel..Gram.) 15 gm PO Q15M PRN; Protocol PRN Reason: per Hypoglycemia Standing Ord. Promethazine HCl 12.5 mg/ (Sodium Chloride) 50.5 mls @ 202 mls/hr IV ONCE PRN PRN Reason: Nausea and Vomiting Linezolid (Zyvox/D5w) 600 mg in 300 mls @ 300 mls/hr IV Q12H [facility] Last Infusion: 10/01/22 04:38 Dose: 0 mls/hr Documented By: CAPRICE Ceftriaxone Sodium 1 gm/ (Sodium Chloride) 50 mls @ 100 mls/hr IV Q24H [facility] Last Infusion: 09/30/22 16:48 Dose: 0 mls/hr Documented By: RAUL Lactated Ringer's (Lr) 1,000 mls @ 80 mls/hr IVCONT .[id number] [facility] Insulin Human Lispro (Insulin Lispro 100 Unit/Ml 3 Ml Vial) 0 unit SUBCUT QIDACHS [facility]; Protocol Last Admin: 10/01/22 08:05 Dose: 4 unit Documented By: TADEO Irrigating Solution (Sodium Chloride 0.9 % Irrig So 500 Ml Irrig.Soln) 60 ml IRRIGATION Q4H PRN PRN Reason: Bladder irrigation Magnesium Hydroxide (Milk Of Magnesia 30 Ml Oral.Susp) 30 ml PO DAILY PRN PRN Reason: Constipation Melatonin (Melatonin 3 Mg Tablet) 6 mg PO BEDTIME PRN PRN Reason: Insomnia Metoprolol Tartrate (Metoprolol Tartrate 12.5 Mg Halftab) 12.5 mg PO BID [facility]; Protocol Last Admin: 10/01/22 08:26 Dose: Not Given Documented By: TADEO Non-Admin Reason: Decreased Blood Pressure Nystatin (Nystatin Powder 15 Gm Bottle) 1 appl TOPICAL BID [facility]; Protocol Last Admin: 10/01/22 08:22 Dose: 1 appl Documented By: TADEO Omeprazole (Omeprazole 20 Mg Capsule.) 20 mg PO DAILY@0630 [facility] Last Admin: 10/01/22 05:41 Dose: 20 mg Documented By: CAPRICE Ondansetron HCl (Ondansetron Hcl 4 Mg/2 Ml Vial) 4 mg IVPUSH Q8H PRN PRN Reason: Nausea and Vomiting Last Admin: 09/24/22 12:57 Dose: 4 mg Documented By: ASH Ondansetron HCl (Ondansetron Hcl 4 Mg/2 Ml Vial) 4 mg IVPUSH ONCE PRN PRN Reason: Nausea and Vomiting Pharmacy Consult (Consult Rx Perform Med Rec) 1 each MISCELLANE ONCE PRN PRN Reason: Consult order Sodium Bicarbonate (Sodium Bicarbonate 650 Mg Tablet) 650 mg PO TID [facility] Last Admin: 10/01/22 08:07 Dose: 650 mg Documented By: TADEO Sodium Biphosphate/Sodium Phosphate (Sodium Phosphate,[place]-Dibasic 133 Ml Enema) 118 ml NC DAILY PRN PRN Reason: Constipation Sodium Chloride (0.9 % Sodium Chloride Flush 3 Ml Syringe) 3 ml IVFLUSH QSHIFT [facility] Last Admin: 10/01/22 08:23 Dose: 3 ml Documented By: TADEO Vitamin D (Cholecalciferol (Vitamin D3) 25 Mcg Tablet) 50 mcg PO DAILY [facility] Last Admin: 10/01/22 08:07 Dose: 50 mcg Documented By: TADEO Labs 10/01/22 05:53 09/30/22 15:20 Labs: Laboratory Results - last 24 hr 09/30/22 09/30/22 09/30/22 11:08 15:20 16:04 PT INR Anion Gap 17 Estim Creat Clear Calc 18.2 Estimated GFR 19 POC Glucose 224 H 294 H Random Glucose 322 H Calcium 8.9 09/30/22 10/01/22 10/01/22 20:05 05:53 07:05 PT 13.2 H INR 1.1 Anion Gap Estim Creat Clear Calc Estimated GFR POC Glucose 241 H 245 H Random Glucose Calcium Microbiology Microbiology Results: Microbiology 09/29/22 Unknown Urine Culture - Preliminary Urine Catheterized - Cao Catheter Pseudomonas aeruginosa 09/26/22 15:07 Blood Culture - Final Blood - Venous Enterococcus faecium 09/26/22 15:07 Blood Culture - Final Blood - Venous Enterococcus faecium 09/28/22 09:39 Blood Culture - Preliminary Blood - Venous No growth after 48 hours. 09/28/22 09:39 Blood Culture - Preliminary Blood - Venous No growth after 48 hours. Assessment and Plan (1) Pressure injury of left heel, stage 3: Status: Acute (2) VRE bacteremia: Status: Acute (3) DEON (acute kidney injury): Status: Acute (4) Hyponatremia: Status: Acute Plan 81 years old male with PMH of CKD, CHF, recent OM, DM, HTN , PAD among others admitted on 09/03/22 to Vascular surgery service by Dr. Land and underwent elective? Right great toe ampuation due to Nonhealing diabetic foot ulcer,? followed by Right TMA on 09/13/22, and was discharge on 09/19 and went to the wound clinic 09/20 and noted to have drainage, ordor and concern for infection and sent to the ED and admitted again. Right great toe diabetic foot ulcer s/p right toe ampuation on 09/03, and was not healing well with possible infection so underwent right? TMA on 09/13/22 and not healing and looks infected after discharge, readmitted and? Will s/p bka,has Enterococcus faecium bacteremia: ?echo:?Technically limited study despite use of contrast agent ? ? 2. Valvular vegetations cannot be ruled out on this study? 3. On limited views LV systolic function appears preserved with? LVEF of about 55%? 4. Normal calculated RV systolic pressure? wbc scan added for ?bacteremia ?Id eval-blood culturex4 grew Enterococcus faecium:? Patient started on linezolid.repeat blood cultures on 09/28/22-neg@48hrs . also has left heel pressure area : wound care consult-stage 3 heel ulcer ,wound care recomendations Plan is to use triad dressing to this and change daily.? Plan to also offload with suspending the heel on pillows consider air bunny boot at night time.? When patient gets discharged he can follow up with us in the Wound Care Clinic . also Dr Land is also aware to outpatient followup. Acute on Chronic anemia 2/2 CKD 3-somwhat worseing low appetite might be contributin added ivf ,moniter renal function and electrolytes closely. nephro eval-for deon on ckd,picc line clearence. hyponatremia -due to decreased po intake-added iv ns. moniter renal function and electerolytes closely DMII--Jardiance and SSI. Hypertension-boderline hold Metoprolol. ivf ns @80ml/hr,please adjust as per renal function. ?hemtauria: has history of bladder cancer ?punch colored urine-resolved . Urology evaluation -hematuria resolved ,call if needed. DVT prophylaxis scd due to hematuria. Need for inpatient: enterococcus bacteremia - need IV Abx, in addition WBC scan added as per ID.. Time Spent With Patient Time: Total time managing care of this patient today ____ minutes. Quality Stroke Does the patient have a stroke diagnosis?: No VTE Prior VTE?: No VTE Risk Level:: Medical - moderate - high VTE Device Contraindication: Treatment Not Indicated VTE Drug Contraindication: Treatment Not Indicated
[2022-10-01] MEDS: Lactated Ringers 1,000 ML 80 ML IVCONT (09:39)
[2022-10-01 09:41] LABS: Anion Gap 18 (12-20); Blood Urea Nitrogen 62 mg/dL (9-16); Calcium 7.5 mg/dL (8.4-10.2); Carbon Dioxide 17 mmol/L (22-29); Chloride 98 mmol/L (96-108); Creatinine Clr Calc Pharmacy 15.2; Estimated Glomerular Filt Rate 15; Glucose Random 235 mg/dL (60-115); Sodium 129 mmol/L (135-145)
[2022-10-01] MEDS: 0.9 % Sodium Chloride 1,000 ML 80 ML IVCONT (10:39)
[2022-10-01] MEDS: Albumin Human 25 % 100 ML IV ×3 (10:39→23:03)
[2022-10-01 11:27] LABS: Glucose, Whole Blood 182 mg/dL (60-115)
--- NOTE | 2022-10-01 12:04 | P.CONNP_ITS ---
History of Present Illness Reason for Consult Consult date: 10/01/22 Chief Complaint Chief complaint: Non healing wound History of Present Illness Narrative: 82 years old male with history of CKD admitted with non healing wound now with worsening kidney function. He underwent elective? right great toe amputation due to non healing diabetic foot ulcer,? followed by right DONA on 09/13/22, and was discharged on 09/19. He went to the wound clinic 09/20 and was noted to have drainage, odor and concern for infection and sent to the ED and admitted again. At the time of the consultation he denies chest pain, shortness of breath, nausea, vomiting or diarrhea. Review of his vital signs shows hypotensive episodes with systolic blood pressure down to the 80s. Review of Systems Review of Systems 10 points ROS negative except for pertinent in HPI [facility] Past Medical History Medical History (Updated 10/01/22 @ 12:11 by Yosi Bryant MD) Acute osteomyelitis Back pain Bladder cancer CKD (chronic kidney disease) CKD (chronic kidney disease) stage 3, GFR 30-59 ml/min Congestive heart failure with LV diastolic dysfunction, NYHA class 3 Decubitus ulcer, heel Diabetes mellitus Gram-negative bacteremia H/O cardiac pacemaker Heart block History of COVID-19 Hydronephrosis Hyperlipidemia Hypertension Infection of right foot Iron deficiency anemia PAD (peripheral artery disease) Type 2 diabetes mellitus with unspecified complications Ulcer of left heel Ulcer of right 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 Urinary retention VRE bacteremia Family History Family History Brother Testicular cancer Family history: reviewed and not pertinent Surgical History Surgical History History of atherectomy History of back surgery History of esophagogastroduodenoscopy History of left hip replacement Hx of cataract extraction Hx of colonoscopy Social History Social History Household Members: Spouse Household Members Other:: 2 Housing: House Do you presently have visiting nurse or other home services: No Alcohol intake: never Patient Tobacco Use Status: Former Tobacco user Quit Date: 15 years Tobacco use type: Cigarette Smoked in Last 30 Days: No Second Hand Smoke Exposure: No Use of substances other than those prescribed or required for medical reasons: No Currently Displaying Signs/Symptoms of Drug Intoxication Withdrawal: No Have you been hit, kicked, punched, or otherwise hurt by someone within the past year? If so, by whom?: No Do you feel safe in your current relationship?: No Is there a partner from a previous relationship who is making you feel unsafe now?: No Are you made to feel afraid or neglected: No Are you DNR?: No Advance Directives: Yes Advance Directives Information Provided: No Advance Directives on File: Yes Advance Directives Date on File: 07/12/22 Do you have thoughts of harming others: None Do you have a plan to hurt others: No Plan Recently lost weight without trying: No Eating poorly because of decreased appetite: No Nutrition Risks: No Nutritional Risk Poor oral hygiene: No service: No Current occupational status: retired [employer] Allergies Allergy/AdvReac Type Severity Reaction Status Date / Time lisinopril [LISINOPRIL] Allergy Severe ANGIOEDEMA Verified 08/30/22 10:56 Active Medications: Current Medications Acetaminophen (Acetaminophen 325 Mg Tablet) 650 mg PO Q6H PRN PRN Reason: Pain, Mild (Pain Scale 1-3) Last Admin: 09/30/22 21:13 Dose: 650 mg Acetaminophen (Acetaminophen 325 Mg Tablet) 650 mg PO Q6H PRN PRN Reason: Fever Or Pain Atorvastatin Calcium (Atorvastatin Calcium 20 Mg Tablet) 20 mg PO BEDTIME [facility] Last Admin: 09/30/22 21:14 Dose: 20 mg Bisacodyl (Bisacodyl 10 Mg Supp.Rect) 10 mg OR DAILY PRN PRN Reason: Constipation Clotrimazole (Clotrimazole 1 % Cream 15 Gm Tube) 1 appl TOPICAL BID [facility]; Protocol Last Admin: 10/01/22 08:24 Dose: 1 appl Dextrose (Dextrose 50 % 25 Gm/50 Ml Syringe) 25 gm IVPUSH Q15M PRN; Protocol PRN Reason: per Hypoglycemia Standing Ord. Doxazosin Mesylate (Doxazosin Mesylate 2 Mg Tablet) 4 mg PO BEDTIME [facility]; Protocol Last Admin: 09/30/22 21:14 Dose: 4 mg Empagliflozin (Empagliflozin 10 Mg Tablet) 10 mg PO DAILY [facility] Last Admin: 10/01/22 08:07 Dose: 10 mg Ferrous Sulfate (Ferrous Sulfate 324 Mg Tablet.) 324 mg PO BIDWM [facility] Last Admin: 10/01/22 08:06 Dose: 324 mg Finasteride (Finasteride 5 Mg Tablet) 5 mg PO DAILY [facility] Last Admin: 10/01/22 08:06 Dose: 5 mg Glucose (Glucose Gel 15 Gm Gel..Gram.) 15 gm PO Q15M PRN; Protocol PRN Reason: per Hypoglycemia Standing Ord. Promethazine HCl 12.5 mg/ (Sodium Chloride) 50.5 mls @ 202 mls/hr IV ONCE PRN PRN Reason: Nausea and Vomiting Linezolid (Zyvox/D5w) 600 mg in 300 mls @ 300 mls/hr IV Q12H [facility] Last Infusion: 10/01/22 04:38 Dose: Infused Ceftriaxone Sodium 1 gm/ (Sodium Chloride) 50 mls @ 100 mls/hr IV Q24H [facility] Last Infusion: 09/30/22 16:48 Dose: Infused Albumin Human (Kedbumin 25 %) 100 mls @ 100 mls/hr IV Q6H [facility] Stop: 10/02/22 04:44 Last Infusion: 10/01/22 12:01 Dose: Infused Sodium Chloride (Ns) 1,000 mls @ 80 mls/hr IVCONT .[id number] [facility] Last Admin: 10/01/22 10:39 Dose: 80 mls/hr Insulin Human Lispro (Insulin Lispro 100 Unit/Ml 3 Ml Vial) 0 unit SUBCUT QIDACHS [facility]; Protocol Last Admin: 10/01/22 08:05 Dose: 4 unit Irrigating Solution (Sodium Chloride 0.9 % Irrig So 500 Ml Irrig.Soln) 60 ml IRRIGATION Q4H PRN PRN Reason: Bladder irrigation Magnesium Hydroxide (Milk Of Magnesia 30 Ml Oral.Susp) 30 ml PO DAILY PRN PRN Reason: Constipation Melatonin (Melatonin 3 Mg Tablet) 6 mg PO BEDTIME PRN PRN Reason: Insomnia Metoprolol Tartrate (Metoprolol Tartrate 12.5 Mg Halftab) 12.5 mg PO BID [facility]; Protocol Last Admin: 10/01/22 08:26 Dose: Not Given Nystatin (Nystatin Powder 15 Gm Bottle) 1 appl TOPICAL BID [facility]; Protocol Last Admin: 10/01/22 08:22 Dose: 1 appl Omeprazole (Omeprazole 20 Mg Capsule.Dr) 20 mg PO DAILY@0630 [facility] Last Admin: 10/01/22 05:41 Dose: 20 mg Ondansetron HCl (Ondansetron Hcl 4 Mg/2 Ml Vial) 4 mg IVPUSH Q8H PRN PRN Reason: Nausea and Vomiting Last Admin: 09/24/22 12:57 Dose: 4 mg Ondansetron HCl (Ondansetron Hcl 4 Mg/2 Ml Vial) 4 mg IVPUSH ONCE PRN PRN Reason: Nausea and Vomiting Pharmacy Consult (Consult Rx Perform Med Rec) 1 each MISCELLANE ONCE PRN PRN Reason: Consult order Sodium Bicarbonate (Sodium Bicarbonate 650 Mg Tablet) 650 mg PO TID [facility] Last Admin: 10/01/22 08:07 Dose: 650 mg Sodium Biphosphate/Sodium Phosphate (Sodium Phosphate,[place]-Dibasic 133 Ml Enema) 118 ml OR DAILY PRN PRN Reason: Constipation Sodium Chloride (0.9 % Sodium Chloride Flush 3 Ml Syringe) 3 ml IVFLUSH QSHIFT [facility] Last Admin: 10/01/22 08:23 Dose: 3 ml Vitamin D (Cholecalciferol (Vitamin D3) 25 Mcg Tablet) 50 mcg PO DAILY [facility] Last Admin: 10/01/22 08:07 Dose: 50 mcg Home Medications Medication Instructions Recorded Confirmed Last Taken Type simvastatin 40 mg tablet 40 mg PO BEDTIME 03/17/20 09/21/22 09/02/22 History blood sugar diagnostic (OneTouch #10 ea 11/11/20 09/03/22 09/03/22 History Verio test strips) pantoprazole 20 mg tablet,delayed 20 mg PO DAILY@0630 11/11/20 09/21/22 09/03/22 History release cholecalciferol (vitamin D3) 50 50 mcg PO DAILY 07/11/22 09/21/22 09/03/22 History mcg (2,000 unit) tablet empagliflozin 10 mg tablet 10 mg PO DAILY 07/11/22 09/21/22 09/03/22 History (Jardiance) acetaminophen 325 mg tablet 650 mg PO Q6H PRN Fever Or Pain 09/21/22 09/21/22 Unknown History bisacodyl 10 mg rectal suppository 10 mg OR DAILY PRN Constipation 09/21/22 09/21/22 Unknown History magnesium hydroxide 400 mg/5 mL 30 ml PO DAILY PRN Constipation 09/21/22 09/21/22 Unknown History oral suspension (Milk of Magnesia) sodium phosphates 19 gram-7 118 ml OR DAILY PRN Constipation 09/21/22 09/21/22 Unknown History gram/118 mL enema (Fleet Enema) Physical Exam Vital Signs: Last Vital Signs Temp 97.4 F 10/01/22 07:00 Pulse 92 10/01/22 07:00 Resp 20 10/01/22 07:00 BP 92/55 L 10/01/22 07:00 Pulse Ox 96 10/01/22 07:00 O2 Del Method Room Air 10/01/22 07:00 BMI result Body Mass Index 24.3 Const General: alert and awake HEENT Head: Yes normocephalic and Yes atraumatic Neck Neck: Yes supple Resp Auscultation: diminished lung sounds Cardio Heart sounds: S1 normal heart sound present and S2 normal heart sound present GI Palpation (GI): Soft to palpation and nontender Extrem General: No edema Results Lab Results 10/01/22 05:53 10/01/22 05:33 Lab results: Chemistry 09/30/22 10/01/22 15:20 05:33 Sodium 131 L 129 L Potassium 4.1 4.0 Carbon Dioxide 17 L 17 L BUN 55 H 62 H Creatinine 3.17 H 3.80 H Calcium 8.9 7.5 L D Hematology 09/30/22 10/01/22 15:20 05:53 Hgb 8.5 L 8.4 L Urinalysis 09/29/22 21:51 Urine Color RED Urine Appearance Turbid Urine pH 7.0 Ur Specific [place] 1.010 Urine Protein 100 (2+) H Urine Glucose (UA) >=1000 H Urine Ketones Negative Urine Blood Large (3+) H Urine Nitrite Negative Ur Leukocyte Esterase Moderate (2+) H Urine RBC >20 H Urine WBC 11-20 Ur Squamous Epith Cells 0-2 Hyaline Casts 0-2 Assessment and Plan (1) DEON (acute kidney injury): Status: Acute (2) Hyponatremia: Status: Acute (3) CKD (chronic kidney disease) stage 3, GFR 30-59 ml/min: Status: Acute Plan DEON due to compromised kidney perfusion and tubular stress ? acute tuubular injury hypotensive blood culture positive for Enterococcus faecium urine with microsocpic hematuria raises concern for [place] infectious glomerular disease h/o obstructive uropathy CT scan in July had showed??left hydronephrosis and UPJ obstruction, left renal stone and question focal bladder wall thickening along the dome and right lateral bladder wall ? known CKD baseline Scr ~ 2 mg/dl suspect hypovolemic hyponatremia LVEF 55% REC Delaney complement level c/w IVF renal US if kidney function continues to worsen follow kidney function and electrolytes Time Spent With Patient Time: Total time managing care of this patient today ____ minutes. Procedures Date of Service Date of Service: 10/01/22
--- NOTE | 2022-10-01 12:09 | MHC.CLN ---
F/U DIET=DIABETIC 1800 KCALS-APPROPRIATE. SKIN WITH STAGE III TO LEFT HEEL; RIGHT BKA; EXCORIATION TO COCCYX. MOST RECENT INTAKE 50-100%. LABS REVIEWED. Na LOW AND RECEIVED IV FLUIDS 10/01. BUN, Cr, RANDOM GLUCOSE ELEVATED. CONTINUE TO FOLLOW FOR INTAKE, LABS, AND WOUND HEALING.
--- NOTE | 2022-10-01 15:12 | MHC.CM.PN ---
EMR REVIEWED AND PER MD ROUNDS, PT IS NOT MEDICALLY CLEARED FOR DC (BACTEREMIA, WORSENING KIDNEY FUNCTION) AC SAENZ FOLLOWING AND UPDATED. CM WILL CONTINUE TO FOLLOW FOR DC NEEDS/PLAN
[2022-10-01 16:31] VITALS: BP 111/53; PULSE 103; RESP 18; TEMP 36.7; O2SAT 97
[2022-10-01 16:37] LABS: Glucose, Whole Blood 195 mg/dL (60-115)
[2022-10-01] MEDS: cefTRIAXone sodium 1 GM in 0.9 % Sodium Chloride 50 ML IV (16:50)
[2022-10-01 20:00] VITALS: BP 115/59; PULSE 100; RESP 18; TEMP 36.3; O2SAT 100
[2022-10-01 20:56] LABS: Glucose, Whole Blood 227 mg/dL (60-115)
[2022-10-01] MEDS: Doxazosin Mesylate 2 MG TABLET 4 MG PO (21:10)
[2022-10-01] MEDS: Atorvastatin Calcium 20 MG TABLET PO (21:11)
[2022-10-01] MEDS: Metoprolol Tartrate 12.5 MG HALFTAB PO (21:11)
[2022-10-02] VITALS (12 sets, daily range): BP systolic 108–148; BP diastolic 55–68; PULSE 86–105; RESP 16–18; TEMP 35.6–36.3; O2SAT 97
[2022-10-02] MEDS: Linezolid/D5W 600 MG/300 ML PIGGYBACK 300 MG IV ×2 (02:51→16:42)
[2022-10-02] MEDS: 0.9 % Sodium Chloride 1,000 ML 80 ML IVCONT (04:01)
[2022-10-02] MEDS: Albumin Human 25 % 100 ML IV (04:06)
[2022-10-02] MEDS: Omeprazole 20 MG CAPSULE.DR PO (05:32)
[2022-10-02 06:34] LABS: Mean Corpuscular HGB Conc 32.1 g/dl (31.0-36.0); Mean Corpuscular Hemoglobin 27.8 pg (27.0-33.0); Mean Corpuscular Volume 86.7 fL (80.0-98.0); Red Blood Count 2.41 X10*6/uL (4.60-5.80); Red Cell Distribution Width 16.2 % (11.0-16.0); White Blood Count 13.3 X10*3/uL (4.8-10.8)
[2022-10-02 06:53] LABS: Anion Gap 15 (12-20); Blood Urea Nitrogen 62 mg/dL (9-16); Calcium 8.5 mg/dL (8.4-10.2); Carbon Dioxide 18 mmol/L (22-29); Chloride 101 mmol/L (96-108); Creatinine Clr Calc Pharmacy 16.7; Estimated Glomerular Filt Rate 17; Glucose Random 190 mg/dL (60-115); Potassium 3.1 mmol/L (3.3-5.1); Sodium 131 mmol/L (135-145)
[2022-10-02 07:20] LABS: Hematocrit 20.9 % (42.0-52.0); Hemoglobin 6.7 g/dl (14.0-18.0)
[2022-10-02 07:23] LABS: Glucose, Whole Blood 174 mg/dL (60-115)
[2022-10-02] MEDS: Insulin Lispro 100 UNIT/ML 3 ML VIAL SUBCUT ×4 (08:10→21:07)
[2022-10-02] MEDS: Metoprolol Tartrate 12.5 MG HALFTAB PO ×2 (08:11→21:01)
[2022-10-02] MEDS: Finasteride 5 MG TABLET PO (08:11)
[2022-10-02] MEDS: Ferrous Sulfate 324 MG TABLET.DR PO ×2 (08:12→15:57)
[2022-10-02] MEDS: Cholecalciferol (Vitamin D3) 25 MCG TABLET 50 MCG PO (08:12)
[2022-10-02] MEDS: Empagliflozin 10 MG TABLET PO (08:12)
[2022-10-02] MEDS: Sodium Bicarbonate 650 MG TABLET PO ×3 (08:12→21:01)
[2022-10-02] MEDS: Clotrimazole 1 % Cream 15 GM TUBE 1 APPL TOPICAL ×2 (08:13→21:02)
[2022-10-02] MEDS: Nystatin Powder 15 GM BOTTLE 1 APPL TOPICAL ×2 (08:13→21:02)
--- NOTE | 2022-10-02 08:59 | HO.PM.IMPN ---
Subjective Subjective Date of Service: 10/02/22 Interval History: f/u on infected surgical ampuation site and s/p BKA with no new issues Physical Exam Vital Signs: Vital Signs: Last Vital Signs Temp 96.9 F 10/02/22 07:18 Pulse 90 10/02/22 07:18 Resp 16 10/02/22 07:18 BP 108/55 L 10/02/22 07:18 Pulse Ox 97 10/02/22 07:18 O2 Del Method Room Air 10/02/22 07:18 BMI result Body Mass Index 24.3 Const: Other: General: AO X 3, no acute distress Resp: CTA bilateral CVS: S1,S2,RRR GI: +BS, NT, no distention Skin: BKA site d/c/i Neuro: motor grossly intact Psych: appropriate affect Objective Data Active Medications Acetaminophen (Acetaminophen 325 Mg Tablet) 650 mg PO Q6H PRN PRN Reason: Pain, Mild (Pain Scale 1-3) Last Admin: 09/30/22 21:13 Dose: 650 mg Documented By: CAPRICE Acetaminophen (Acetaminophen 325 Mg Tablet) 650 mg PO Q6H PRN PRN Reason: Fever Or Pain Atorvastatin Calcium (Atorvastatin Calcium 20 Mg Tablet) 20 mg PO BEDTIME [facility] Last Admin: 10/01/22 21:11 Dose: 20 mg Documented By: CAPRICE Bisacodyl (Bisacodyl 10 Mg Supp.Rect) [address] DAILY PRN PRN Reason: Constipation Clotrimazole (Clotrimazole 1 % Cream 15 Gm Tube) 1 appl TOPICAL BID [facility]; Protocol Last Admin: 10/02/22 08:13 Dose: 1 appl Documented By: TADEO Dextrose (Dextrose 50 % 25 Gm/50 Ml Syringe) 25 gm IVPUSH Q15M PRN; Protocol PRN Reason: per Hypoglycemia Standing Ord. Doxazosin Mesylate (Doxazosin Mesylate 2 Mg Tablet) 4 mg PO BEDTIME [facility]; Protocol Last Admin: 10/01/22 21:10 Dose: 4 mg Documented By: CAPRICE Empagliflozin (Empagliflozin 10 Mg Tablet) 10 mg PO DAILY [facility] Last Admin: 10/02/22 08:12 Dose: 10 mg Documented By: TADEO Ferrous Sulfate (Ferrous Sulfate 324 Mg Tablet.) 324 mg PO BIDWM [facility] Last Admin: 10/02/22 08:12 Dose: 324 mg Documented By: TADEO Finasteride (Finasteride 5 Mg Tablet) 5 mg PO DAILY [facility] Last Admin: 10/02/22 08:11 Dose: 5 mg Documented By: TADEO Glucose (Glucose Gel 15 Gm Gel..Gram.) 15 gm PO Q15M PRN; Protocol PRN Reason: per Hypoglycemia Standing Ord. Promethazine HCl 12.5 mg/ (Sodium Chloride) 50.5 mls @ 202 mls/hr IV ONCE PRN PRN Reason: Nausea and Vomiting Linezolid (Zyvox/D5w) 600 mg in 300 mls @ 300 mls/hr IV Q12H [facility] Last Infusion: 10/02/22 04:11 Dose: 0 mls/hr Documented By: CAPRICE Ceftriaxone Sodium 1 gm/ (Sodium Chloride) 50 mls @ 100 mls/hr IV Q24H [facility] Last Infusion: 10/01/22 17:26 Dose: 0 mls/hr Documented By: TADEO Sodium Chloride (Ns) 1,000 mls @ 80 mls/hr IVCONT .[id number] [facility] Last Admin: 10/02/22 04:01 Dose: 80 mls/hr Documented By: CAPRICE Insulin Human Lispro (Insulin Lispro 100 Unit/Ml 3 Ml Vial) 0 unit SUBCUT QIDACHS [facility]; Protocol Last Admin: 10/02/22 08:10 Dose: 2 unit Documented By: TADEO Irrigating Solution (Sodium Chloride 0.9 % Irrig So 500 Ml Irrig.Soln) 60 ml IRRIGATION Q4H PRN PRN Reason: Bladder irrigation Magnesium Hydroxide (Milk Of Magnesia 30 Ml Oral.Susp) 30 ml PO DAILY PRN PRN Reason: Constipation Melatonin (Melatonin 3 Mg Tablet) 6 mg PO BEDTIME PRN PRN Reason: Insomnia Metoprolol Tartrate (Metoprolol Tartrate 12.5 Mg Halftab) 12.5 mg PO BID [facility]; Protocol Last Admin: 10/02/22 08:11 Dose: 12.5 mg Documented By: TADEO Nystatin (Nystatin Powder 15 Gm Bottle) 1 appl TOPICAL BID [facility]; Protocol Last Admin: 10/02/22 08:13 Dose: 1 appl Documented By: TADEO Omeprazole (Omeprazole 20 Mg Capsule.Dr) 20 mg PO DAILY@0630 [facility] Last Admin: 10/02/22 05:32 Dose: 20 mg Documented By: CAPRICE Ondansetron HCl (Ondansetron Hcl 4 Mg/2 Ml Vial) 4 mg IVPUSH Q8H PRN PRN Reason: Nausea and Vomiting Last Admin: 09/24/22 12:57 Dose: 4 mg Documented By: ASH Ondansetron HCl (Ondansetron Hcl 4 Mg/2 Ml Vial) 4 mg IVPUSH ONCE PRN PRN Reason: Nausea and Vomiting Pharmacy Consult (Consult Rx Perform Med Rec) 1 each MISCELLANE ONCE PRN PRN Reason: Consult order Sodium Bicarbonate (Sodium Bicarbonate 650 Mg Tablet) 650 mg PO TID [facility] Last Admin: 10/02/22 08:12 Dose: 650 mg Documented By: TADEO Sodium Chloride (0.9 % Sodium Chloride Flush 3 Ml Syringe) 3 ml IVFLUSH QSHIFT [facility] Last Admin: 10/02/22 08:12 Dose: Not Given Documented By: TADEO Non-Admin Reason: IV Running Vitamin D (Cholecalciferol (Vitamin D3) 25 Mcg Tablet) 50 mcg PO DAILY [facility] Last Admin: 10/02/22 08:12 Dose: 50 mcg Documented By: TADEO Labs 10/02/22 06:15 10/02/22 06:15 Labs: Laboratory Results - last 24 hr 10/01/22 10/01/22 10/01/22 05:33 11:21 16:29 MCV MCH MCHC RDW Plt Count MPV Absolute Nucleated RBC Nucleated RBC % (auto) Anion Gap 18 Estim Creat Clear Calc 15.2 Estimated GFR 15 POC Glucose 182 H 195 H Random Glucose 235 H Calcium 7.5 L D 10/01/22 10/02/22 10/02/22 20:53 06:15 06:15 MCV 86.7 MCH 27.8 MCHC 32.1 RDW 16.2 H Plt Count TNP MPV 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 Absolute Nucleated RBC 0.000 Nucleated RBC % (auto) 0.0 Anion Gap 15 Estim Creat Clear Calc 16.7 Estimated GFR 17 POC Glucose 227 H Random Glucose 190 H Calcium 8.5 D 10/02/22 07:17 MCV MCH MCHC RDW Plt Count MPV Absolute Nucleated RBC Nucleated RBC % (auto) Anion Gap Estim Creat Clear Calc Estimated GFR POC Glucose 174 H Random Glucose Calcium Microbiology Microbiology Results: Microbiology 09/29/22 Unknown Urine Culture - Preliminary Urine Catheterized - Cao Catheter Pseudomonas aeruginosa Assessment and Plan (1) Pressure injury of left heel, stage 3: Status: Acute (2) VRE bacteremia: Status: Acute (3) DEON (acute kidney injury): Status: Acute (4) Hyponatremia: Status: Acute Plan 81 years old male with PMH of CKD, CHF, recent OM, DM, HTN , PAD among others admitted on 09/03/22 to Vascular surgery service by Dr. Land and underwent elective? Right great toe ampuation due to Nonhealing diabetic foot ulcer,? followed by Right TMA on 09/13/22, and was discharge on 09/19 and went to the wound clinic 09/20 and noted to have drainage, ordor and concern for infection and sent to the ED and admitted again. Right great toe diabetic foot ulcer s/p right toe ampuation on 09/03, and was not healing well with possible infection so underwent right? 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 echo no vegetations Pseudomonas in UTI--levaquin Acute on chronic anemia, hematuria--hgb 6.7, transfuse 2 units hypOnatremia mild, watch DMII--Jardiance and SSI. Hypertension-boderline, low BP metoprolol on hold hematuria--resolved DVT prophylaxis scd due to hematuria. Need for inpatient: enterococcus bacteremia - need IV Abx, in addition WBC scan added as per ID.. Time Spent With Patient Time: Total time managing care of this patient today ____ minutes. Quality Stroke Does the patient have a stroke diagnosis?: No VTE Prior VTE?: No VTE Risk Level:: Medical - moderate - high VTE Device Contraindication: Treatment Not Indicated VTE Drug Contraindication: Treatment Not Indicated
--- NOTE | 2022-10-02 11:06 | P.PICC_ITS ---
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 Following completion of [place] Protocol the skin and soft tissues were anesthetized with 1% Lidocaine plain. Using ultrasound guidance, RIGHT BASILIC vein access was obtained ON FIRST BY LILI ARCHIBALD RN. Over an 0.018 wire through peel-away sheath, a 4FR SINGLE LUMEN PASV PICC line was positioned. Catheter length is 38CM internal length, 0CM external length, for a total trimmed length of 38CM. The procedure was performed in RM 272. Tip verification was performed by Hang Gomes with Nicholas 3CG. Tip located in SVC. Ultrasound was used to document vein patency and for needle entry. A formal ultrasound picture and cardiac rhythm strip was recorded. Vascular Project Engineering Manager has released the line for use and it is currently dressed with a StatLock, Tegaderm, and CHG disc. Verification has been performed for blood return and line patency. Arm Circumference: 25.5CM Equipment: [employer] [place] POWERPICC SOLO Catheter Type: 4FR SINGLE LUMEN PASV PICC Lot #: [id number]
[2022-10-02 11:32] LABS: Glucose, Whole Blood 163 mg/dL (60-115)
--- NOTE | 2022-10-02 11:39 | P.PNNP_ITS ---
Subjective Subjective Date of Service: 10/02/22 Interval history: evets noted d/w earlier with medical attending Physical Exam Vital Signs: Vital Signs: Last Vital Signs Temp 96.9 F 10/02/22 07:18 Pulse 90 10/02/22 07:18 Resp 16 10/02/22 07:18 BP 108/55 L 10/02/22 07:18 Pulse Ox 97 10/02/22 07:18 O2 Del Method Room Air 10/02/22 07:18 BMI result Body Mass Index 24.3 Const: General: alert and awake HEENT: Head: Yes normocephalic and Yes atraumatic Neck: Neck: Yes supple Resp: Auscultation: diminished lung sounds Cardio: Heart sounds: S1 normal heart sound present and S2 normal heart sound present GI: Palpation (GI): Soft to palpation and nontender Extrem: General: No edema Objective Data Labs 10/02/22 06:15 10/02/22 06:15 Labs: Laboratory Results - last 24 hr 10/01/22 10/01/22 10/02/22 16:29 20:53 06:15 WBC 13.3 H RBC 2.41 L D Hgb 6.7 L* D Hct 20.9 L* D MCV 86.7 MCH 27.8 MCHC 32.1 RDW 16.2 H Plt Count TNP MPV REVENUE AGENT Absolute Nucleated RBC 0.000 Nucleated RBC % (auto) 0.0 Sodium Potassium Chloride Carbon Dioxide Anion Gap BUN Creatinine Estim Creat Clear Calc Estimated GFR POC Glucose 195 H 227 H Random Glucose Calcium Blood Type Antibody Screen Crossmatch 10/02/22 10/02/22 10/02/22 06:15 07:17 08:02 WBC RBC Hgb Hct MCV MCH MCHC RDW Plt Count MPV Absolute Nucleated RBC Nucleated RBC % (auto) Sodium 131 L Potassium 3.1 L D Chloride 101 Carbon Dioxide 18 L Anion Gap 15 BUN 62 H Creatinine 3.45 H Estim Creat Clear Calc 16.7 Estimated GFR 17 POC Glucose 174 H Random Glucose 190 H Calcium 8.5 D Blood Type O Positive Antibody Screen NEGATIVE Crossmatch See Detail 10/02/22 11:23 WBC RBC Hgb Hct MCV MCH MCHC RDW Plt Count MPV Absolute Nucleated RBC Nucleated RBC % (auto) Sodium Potassium Chloride Carbon Dioxide Anion Gap BUN Creatinine Estim Creat Clear Calc Estimated GFR POC Glucose 163 H Random Glucose Calcium Blood Type Antibody Screen Crossmatch Microbiology Microbiology Results: Microbiology 09/29/22 Unknown Urine Catheterized - Cao Catheter Urine Culture - Final Pseudomonas aeruginosa 09/26/22 15:07 Blood - Venous Blood Culture - Final Enterococcus faecium 09/26/22 15:07 Blood - Venous Blood Culture - Final Enterococcus faecium 09/28/22 09:39 Blood - Venous Blood Culture - Preliminary No growth after 48 hours. 09/28/22 09:39 Blood - Venous Blood Culture - Preliminary No growth after 48 hours. 09/21/22 00:25 Blood - Venous Blood Culture - Final Enterococcus faecium 09/21/22 00:19 Blood - Venous Blood Culture - Final Enterococcus faecium Procedures Date of Service Date of Service: 10/02/22 Assessment & Plan Assessment and plan (1) DEON (acute kidney injury): Status: Acute (2) Hyponatremia: Status: Acute (3) CKD (chronic kidney disease) stage 3, GFR 30-59 ml/min: Status: Acute Plan Scr better DEON due to compromised kidney perfusion and tubular stress ? acute tubular injury hypotensive earlier blood culture positive for Enterococcus faecium urine with microsocpic hematuria raises concern for [place] infectious glomerular disease complement level pending h/o obstructive uropathy CT scan in July had showed??left hydronephrosis and UPJ obstruction, left renal stone and question focal bladder wall thickening along the dome and right lateral bladder wall ? known CKD baseline Scr ~ 2 mg/dl suspect hypovolemic hyponatremia LVEF 55% REC c/w IVF can have PICC line replace potassium follow kidney function and electrolytes Time Spent With Patient Time: Total time managing care of this patient today ____ minutes. Progress Note: Quality Stroke Does the patient have a stroke diagnosis?: No
--- NOTE | 2022-10-02 14:37 | MHC.CM.PN ---
Olga updated on pt's POTENTIAL discharge for today. Provided updated PT eval. Bed offer pending [employer] auth.
[2022-10-02] MEDS: cefTRIAXone sodium 1 GM in 0.9 % Sodium Chloride 50 ML IV (15:57)
[2022-10-02] MEDS: Heparin Sodium,Porcine Flush 50 UNITS, 0.9 % Sodium Chloride Flush 5 ML IVFLUSH (15:58)
[2022-10-02 16:36] LABS: Glucose, Whole Blood 180 mg/dL (60-115)
[2022-10-02 20:50] LABS: Glucose, Whole Blood 205 mg/dL (60-115)
[2022-10-02] MEDS: Atorvastatin Calcium 20 MG TABLET PO (21:01)
[2022-10-02] MEDS: Doxazosin Mesylate 2 MG TABLET 4 MG PO (21:02)
[2022-10-03] MEDS: Heparin Sodium,Porcine Flush 50 UNITS, 0.9 % Sodium Chloride Flush 5 ML IVFLUSH ×2 (01:28→07:57)
[2022-10-03 03:39] VITALS: BP 126/60; PULSE 98; RESP 16; TEMP 36.5; O2SAT 95
[2022-10-03] MEDS: 0.9 % Sodium Chloride 1,000 ML 80 ML IVCONT (03:39)
[2022-10-03] MEDS: Linezolid/D5W 600 MG/300 ML PIGGYBACK 300 MG IV (03:41)
--- NOTE | 2022-10-03 04:47 | PC.NURSE ---
Pt's loya was bypassing with no drainage. Loya was hand irrigated with sterile water at bedside. Obtained cloudy urine with sediments. Afterwards the urine changed to blood tinged urine. MD Varghese notified of the situation. Urine sample was order. Will send down urine specimen and monitor pt's loya.
[2022-10-03] MEDS: Omeprazole 20 MG CAPSULE.DR PO (05:32)
[2022-10-03 06:44] LABS: Appearance Urine Turbid; Color Urine RED; Glucose Urine UA 500 mg/dL (Negative); Leukocyte Esterase Urine Moderate (2+) (Negative); Nitrite Urine Negative (Negative); UMIC TRIGGER UACC YES; Urine Blood Large (3+) (Negative); Urine Ketones Negative (Negative); Urine Protein 100 (2+) mg/dL (Neg-Trace)
[2022-10-03 06:50] LABS: Bacteria Urine 4+ (None Seen); Hyaline Casts Urine 0-2 /LPF (0-2); RBC Urine >20 /HPF (0-2); UACC Culture Trigger YES; WBC Urine >50 /HPF (0-5)
[2022-10-03 07:38] VITALS: BP 120/60; PULSE 94; RESP 16; TEMP 36.2; O2SAT 97
[2022-10-03 07:42] LABS: Glucose, Whole Blood 182 mg/dL (60-115)
[2022-10-03] MEDS: Insulin Lispro 100 UNIT/ML 3 ML VIAL SUBCUT (07:55)
[2022-10-03] MEDS: Metoprolol Tartrate 12.5 MG HALFTAB PO (07:56)
[2022-10-03] MEDS: Cholecalciferol (Vitamin D3) 25 MCG TABLET 50 MCG PO (07:56)
[2022-10-03] MEDS: Ferrous Sulfate 324 MG TABLET.DR PO (07:56)
[2022-10-03] MEDS: Empagliflozin 10 MG TABLET PO (07:57)
[2022-10-03] MEDS: Sodium Bicarbonate 650 MG TABLET PO (07:57)
[2022-10-03] MEDS: Finasteride 5 MG TABLET PO (07:57)
[2022-10-03] MEDS: Nystatin Powder 15 GM BOTTLE 1 APPL TOPICAL (07:58)
[2022-10-03] MEDS: Clotrimazole 1 % Cream 15 GM TUBE 1 APPL TOPICAL (07:58)
[2022-10-03 08:24] LABS: Hemoglobin 9.3 g/dl (14.0-18.0); Mean Corpuscular HGB Conc 32.1 g/dl (31.0-36.0); Mean Corpuscular Hemoglobin 27.9 pg (27.0-33.0); Mean Corpuscular Volume 87.1 fL (80.0-98.0); Mean Platelet Volume 12.9 fL (9.4-12.4); Red Blood Count 3.33 X10*6/uL (4.60-5.80); Red Cell Distribution Width 16.3 % (11.0-16.0); White Blood Count 14.8 X10*3/uL (4.8-10.8)
[2022-10-03 08:28] LABS: Platelet Count 72 X10*3/uL (160-400)
--- NOTE | 2022-10-03 09:08 | PM.DS ---
DS: Providers Provider Date of Service: 10/03/22 Date of admission: 09/21/22 13:33 Primary care physician: RADHA Bonilla Consults: 09/21/22 00:53 Consult to Vascular Surgery Routine Consulting Provider: [facility] Vascular Services Reason for consultation: non healing wound 09/25/22 08:16 Consult to Infectious Diseases Routine Consulting Provider: [facility] Infectious Disease Reason for consultation: foot infection,diabetic -s/pbka Has provider been notified: No 09/25/22 10:02 Consult to Urology Routine Consulting Provider: [facility] Urology Services Reason for consultation: Hematuria/ bladder cancer Has provider been notified: No 09/26/22 11:17 Consult to Infectious Diseases Stat Consulting Provider: [facility] Infectious Disease Reason for consultation: VANCO VS DAPTO? SKIN INFECTION ON TOE Has provider been notified: Yes 09/26/22 14:37 Consult to Wound Care Routine Consulting Provider: [facility] Wound Care Management Reason for consultation: left heel pressure ulcer Has provider been notified: No 10/01/22 07:24 Consult to Nephrology Routine Consulting Provider: Alan Menard Reason for consultation: deon on ckd, need picc also -has bacteremia Has provider been notified: No DS: Diagnosis Discharge Diagnosis (1) DEON (acute kidney injury): Status: Acute (2) Hyponatremia: Status: Acute (3) CKD (chronic kidney disease) stage 3, GFR 30-59 ml/min: Status: Acute DS: Summary Hospital Course Hospital Course: Chief Complaint: Non healing wound This is a 81-year-old male with pertinent history chronic kidney disease, peripheral arterial disease, essential hypertension, insulin-dependent diabetes mellitus who was sent from [facility]-term rehab for concern of nonhealing wound.? Patient initially had underwent elective right great toe amputation due to nonhealing diabetic foot ulcer.? The amputated toe site did not heal as expected so patient underwent TMA on 09/13/2022.? Patient was discharged on 09/19/2022 with oral doxycycline and close follow-up with Dr. Land in 2 weeks.? Patient is a poor historian and history obtained by ER provider and chart review.? He was sent due to gaping of the wound.? Patient denies any symptoms. 81 years old male with PMH of CKD, CHF, recent OM, DM, HTN , PAD among others admitted on 09/03/22 to Vascular surgery service by Dr. Land and underwent elective? Right great toe ampuation due to Nonhealing diabetic foot ulcer,? followed by Right TMA on 09/13/22, and was discharge on 09/19 and went to the wound clinic 09/20 and noted to have drainage, ordor and concern for infection and sent to the ED and admitted again, During hospitalization noted to have Enterococcus faecium bacteremia, acute on chronic renal failure and anemia. Right great toe diabetic foot ulcer s/p right toe ampuation on 09/03, and was not healing well with possible infection so underwent right? 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 Was on Vancomycin but did not tolerate and so was changed to linezolid since 09/28, repeat culture 09/28 no growth. echo no vegetations. ID recommending treatment for . A picc line inserted on 10/02 Pseudomonas in urine appear to be colonization and doesn't need treatment at this time Chronic urinary retention--has loya and to have voiding trial on outpatient basis Acute on chronic anemia, hematuria--hgb 6.7, transfuse 2 units on 10/02, repeat 9.3/ hypOnatremia mild, watch DMII--Jardiance and SSI. Acute on chronic kidney failure, has CKD 4 with mild worsening, imaging show chronic bilateral hydro that is stable Hypertension-controlled on metoprolol Time Spent with Patient Time attestation: Total time managing care of this patient today ____ minutes. Discharge coordination time: Greater than 30 minutes Quality: Safe Use of Opioids Does Pt have an Active Cancer Diagnosis on the Problem List?: No Quality: Stroke Does the patient have a stroke diagnosis?: No Physical Exam Vital Signs: Vital Signs: Last Vital Signs Temp 97.1 F 10/03/22 07:38 Pulse 94 10/03/22 07:38 Resp 16 10/03/22 07:38 BP 120/60 10/03/22 07:38 Pulse Ox 97 10/03/22 07:38 O2 Del Method Room Air 10/03/22 07:38 BMI result Body Mass Index 24.3 DS: Data Data Completed and Pending Completed studies during hospitalization [Text1]: Pending at discharge 09/24/22 11:40 Surgical [PTH] Routine Procedures Destruction of Bladder, Via Natural or Artificial Opening Endoscopic (08/01/22) Detachment at Right 1st Toe, Complete, Open Approach (09/03/22) Detachment at Right Foot, Partial 2nd Ray, Open Approach (09/03/22) Detachment at Right Foot, Partial 3rd Ray, Open Approach (09/03/22) Detachment at Right Foot, Partial 4th Ray, Open Approach (09/03/22) Detachment at Right Foot, Partial 5th Ray, Open Approach (09/03/22) Dilation of Right Femoral Artery using Drug-Coated Balloon, Percutaneous Approach (07/11/22) Excision of Bladder, Via Natural or Artificial Opening Endoscopic, Diagnostic (08/01/22) Excision of Left Foot Subcutaneous Tissue and Fascia, Open Approach (06/11/20) Excision of Right Foot Subcutaneous Tissue and Fascia, Open Approach (07/11/22) Extirpation of Matter from Bladder, Via Natural or Artificial Opening Endoscopic (08/01/22) Extirpation of Matter from Right Femoral Artery, Percutaneous Approach (07/11/22) Insertion of Infusion Device into Superior Vena Cava, Percutaneous Approach (07/11/22) Insertion of Pacemaker Lead into Right Atrium, Percutaneous Approach (11/25/20) Insertion of Pacemaker Lead into Right Ventricle, Percutaneous Approach (11/25/20) Insertion of Pacemaker, Dual Chamber into Chest Subcutaneous Tissue and Fascia, Open Approach (11/25/20) Inspection of Upper Intestinal Tract, Via Natural or Artificial Opening Endoscopic (08/01/22) Transfusion of Nonautologous Red Blood Cells into Peripheral Vein, Percutaneous Approach (09/03/22) Ultrasonography of Superior Vena Cava, Guidance (07/11/22) Labs on day of discharge: Laboratory Results - last 24 hr 10/02/22 10/02/22 10/02/22 08:02 11:23 16:26 WBC RBC Hgb Hct MCV MCH MCHC RDW Plt Count MPV Absolute Nucleated RBC Nucleated RBC % (auto) POC Glucose 163 H 180 H Urine Color Urine Appearance Urine pH Ur Specific [place] Urine Protein Urine Glucose (UA) Urine Ketones Urine Blood Urine Nitrite Ur Leukocyte Esterase Urine RBC Urine WBC Ur Squamous Epith Cells Urine Bacteria Hyaline Casts Blood Type O Positive Antibody Screen NEGATIVE Crossmatch See Detail 10/02/22 10/03/22 10/03/22 20:43 06:36 07:37 WBC RBC Hgb Hct MCV MCH MCHC RDW Plt Count MPV Absolute Nucleated RBC Nucleated RBC % (auto) POC Glucose 205 H 182 H Urine Color RED Urine Appearance Turbid Urine pH 6.0 Ur Specific [place] 1.010 Urine Protein 100 (2+) H Urine Glucose (UA) 500 H Urine Ketones Negative Urine Blood Large (3+) H Urine Nitrite Negative Ur Leukocyte Esterase Moderate (2+) H Urine RBC >20 H Urine WBC >50 H Ur Squamous Epith Cells 3-5 Urine Bacteria 4+ Hyaline Casts 0-2 Blood Type Antibody Screen Crossmatch 10/03/22 08:11 WBC 14.8 H RBC 3.33 L D Hgb 9.3 L D Hct 29.0 L D MCV 87.1 MCH 27.9 MCHC 32.1 RDW 16.3 H Plt Count 72 L D MPV 12.9 H Absolute Nucleated RBC 0.000 Nucleated RBC % (auto) 0.0 POC Glucose Urine Color Urine Appearance Urine pH Ur Specific [place] Urine Protein Urine Glucose (UA) Urine Ketones Urine Blood Urine Nitrite Ur Leukocyte Esterase Urine RBC Urine WBC Ur Squamous Epith Cells Urine Bacteria Hyaline Casts Blood Type Antibody Screen Crossmatch Preliminary micro results at discharge 09/28/22 09:39 Blood Culture - Preliminary Blood - Venous No growth after 48 hours. 09/28/22 09:39 Blood Culture - Preliminary Blood - Venous No growth after 48 hours. Discharge Plan Discharge Anticipated Discharge Date/Time: 10/03/22 09:17 Patient Disposition: [facility] Discharge Diagnosis: Sepsis, bacteremia, non healing wound, anemia, renal failure on Referrals: Gene Eaton PA [Primary Care Provider] - 1 Week Discharge Medications: New linezolid in dextrose 5% [Zyvox] 600 mg/300 mL Piggyback 600 mg IV Q12H Qty: 30 0RF Continued sodium bicarbonate 650 mg Tablet 650 mg PO TID Qty: 90 0RF finasteride 5 mg Tablet 5 mg PO DAILY Qty: 30 0RF metoprolol tartrate 25 mg tablet 12.5 mg PO BID Qty: 30 0RF doxazosin [Cardura] 4 mg tablet 4 mg PO BEDTIME Qty: 30 0RF ferrous sulfate 324 mg (65 mg iron) Tablet,Delayed Release (Dr/Ec) 324 mg PO BIDWM Qty: 60 0RF insulin lispro [Humalog U-100 Insulin] 100 unit/mL Solution See Protocol subcut QITATOAlecia Qty: 10 0RF Protocol: Insulin Correction Scale Less than or equal to 110 ---- Give (units): 0 111 to 150 Give (units): 0 151 to 200 Give (units): 2 201 to 250 Give (units): 4 251 to 300 Give (units): 6 301 to 350 Give (units): 8 Greater than 350 Give (units): 10 Call MD if Blood Glucose > : 350 oxycodone 5 mg Tablet 5 mg PO Q4H PRN (Reason: Pain, Severe (Pain Scale 7-10)) Qty: 15 0RF Rx Instructions: Partial Fill upon patient request. Jardiance 10 mg tablet 10 mg PO DAILY cholecalciferol (vitamin D3) 50 mcg (2,000 unit) Tablet 50 mcg PO DAILY acetaminophen 325 mg Tablet 650 mg PO Q6H PRN (Reason: Fever Or Pain) magnesium hydroxide [Milk of Magnesia] 400 mg/5 mL Suspension 30 ml PO DAILY PRN (Reason: Constipation) bisacodyl 10 mg Suppository 10 mg NV DAILY PRN (Reason: Constipation) Fleet Enema 19-7 gram/118 mL Enema 118 ml NV DAILY PRN (Reason: Constipation) simvastatin 40 mg tablet 40 mg PO BEDTIME (DME) OneTouch Verio test strips Strip See Rx Instructions Not Applicable TID Qty: 10 Rx Instructions: As directed pantoprazole 20 mg tablet,delayed release (DR/EC) 20 mg PO DAILY@0630 Discontinued doxycycline monohydrate 100 mg Capsule 100 mg PO Q12H Qty: 20 0RF Rx Instructions: END DATE: Discharge Orders: Discharge Order (Routine); Ordered 10/03/22 Ordered By: Jacques Hummel Diet: Advance to usual diet Activity on Discharge: As tolerated Stand Alone Forms: Patient Portal Discharge page Activity Restrictions/Additional Instructions: Wound care upon discharge: xeroform, 4x4 and Kerlix wrap to be changed daily. Please call Dr. Land at [phone] for 2 week follow up for suture and staple removal Care Plan Goals: full recovery from ampuation and bacteremia and sepsis Health Concerns: Enterococcus bacteremia, amputated limb, acute on chronic renal failure, anemia, Plan of Treatment: Linezolid as recommended Assessment: as above
[2022-10-03 10:11] LABS: Anion Gap 16 (12-20); Blood Urea Nitrogen 61 mg/dL (9-16); Calcium 8.5 mg/dL (8.4-10.2); Carbon Dioxide 19 mmol/L (22-29); Chloride 104 mmol/L (96-108); Creatinine Clr Calc Pharmacy 17.1; Estimated Glomerular Filt Rate 18; Glucose Random 185 mg/dL (60-115); Potassium 3.8 mmol/L (3.3-5.1); Sodium 135 mmol/L (135-145)
--- NOTE | 2022-10-03 10:18 | P.PNVS_ITS ---
Subjective Subjective Date of Service: 10/03/22 Patient reports: no new complaints and feels better Interval history: Patient seen and examined. No significant events. Appears to be relatively comfortable. Awaiting placement. He is status post right BKA. Now for follow- up exam. Physical Exam Vital Signs: Vital Signs: Last Vital Signs Temp 97.1 F 10/03/22 07:38 Pulse 94 10/03/22 07:38 Resp 16 10/03/22 07:38 BP 120/60 10/03/22 07:38 Pulse Ox 97 10/03/22 07:38 O2 Del Method Room Air 10/03/22 07:38 BMI result Body Mass Index 24.3 Const: General: cooperative, healthy appearing and no acute distress Orientation/consciousness: oriented to person, oriented to place and oriented to time HEENT: Head: Yes normal to inspection Neck: Carotids: no bruits Chest: Chest palpation & inspection: normal inspection of the chest Resp: Effort & Inspection: normal respiratory effort and able to speak in complete sentences Auscultation: clear to auscultation bilaterally Cardio: Rate: regular rate Heart sounds: S1 normal heart sound present and S2 normal heart sound present GI: Inspection: Yes normal to inspection Skin: Other: Right stump healing well. Excellent take of flap. Sutures and julio césar intact. General skin exam: no rashes or lesions noted Wounds: no wounds Neuro: General: oriented to person, oriented to place, oriented to time and CN's II-XI intact bilaterally Extrem: General: Yes normal to inspection, Yes full ROM and Yes no clubbing, cyanosis or edema Psych: Appearance: grossly normal and well kempt Speech and movement: Normal speech and movement present Affect: normal affect Progress Note: A&P Assessment and plan (1) Status post below knee amputation of right lower extremity: Status: Acute Assessment and Plan: In short patient is doing extremely well status post BKA. Stable from my perspective for discharge. Can see me as an outpatient in approximately 2 weeks time for suture and staple removal. Thank you for allowing us to assist in his care. Time Spent With Patient Time: Total time managing care of this patient today ____ minutes. Procedures Date of Service Date of Service: 10/03/22 Quality Stroke Does the patient have a stroke diagnosis?: No VTE Prior VTE?: No VTE Risk Level:: Medical - moderate - high VTE Device Contraindication: Treatment Not Indicated VTE Drug Contraindication: Treatment Not Indicated
--- NOTE | 2022-10-03 10:37 | MHC.CLN ---
F/U DIET=DIABETIC 1800 KCALS-APPROPRIATE. SKIN WITH STAGE III TO LEFT HEEL (DM ULCER); RIGHT BKA; STAGE II TO COCCYX. MOST RECENT INTAKE 25-100%. LABS REVIEWED; BUN, Cr, RANDOM GLUCOSE ELEVATED. CONTINUE TO FOLLOW FOR INTAKE, LABS, AND WOUND HEALING.
--- NOTE | 2022-10-03 11:06 | MHC.CM.PN ---
Plan for pt to [facility] @ 2PM via BLS. aware. RN aware. Patient aware and IMM delivered. Attempted to call x2 but she is unable to hear phone call.
[2022-10-03 11:21] LABS: Glucose, Whole Blood 151 mg/dL (60-115)
--- NOTE | 2022-10-03 12:33 | P.PNNP_ITS ---
Subjective Subjective Date of Service: 10/03/22 Interval history: seen and examined no complaints Physical Exam Vital Signs: Vital Signs: Last Vital Signs Temp 97.1 F 10/03/22 07:38 Pulse 94 10/03/22 07:38 Resp 16 10/03/22 07:38 BP 120/60 10/03/22 07:38 Pulse Ox 97 10/03/22 07:38 O2 Del Method Room Air 10/03/22 07:38 BMI result Body Mass Index 24.3 Const: General: alert and awake HEENT: Head: Yes normocephalic and Yes atraumatic Neck: Neck: Yes supple Resp: Auscultation: diminished lung sounds Cardio: Heart sounds: S1 normal heart sound present and S2 normal heart sound present GI: Palpation (GI): Soft to palpation and nontender Extrem: General: No edema Objective Data Labs 10/03/22 08:11 10/03/22 Unknown Labs: Laboratory Results - last 24 hr 10/02/22 10/02/22 10/02/22 08:02 16:26 20:43 WBC RBC Hgb Hct MCV MCH MCHC RDW Plt Count MPV Absolute Nucleated RBC Nucleated RBC % (auto) Sodium Potassium Chloride Carbon Dioxide Anion Gap BUN Creatinine Estim Creat Clear Calc Estimated GFR POC Glucose 180 H 205 H Random Glucose Calcium Urine Color Urine Appearance Urine pH Ur Specific [place] Urine Protein Urine Glucose (UA) Urine Ketones Urine Blood Urine Nitrite Ur Leukocyte Esterase Urine RBC Urine WBC Ur Squamous Epith Cells Urine Bacteria Hyaline Casts Blood Type O Positive Antibody Screen NEGATIVE Crossmatch See Detail 10/03/22 10/03/22 10/03/22 06:36 07:37 08:11 WBC 14.8 H RBC 3.33 L D Hgb 9.3 L D Hct 29.0 L D MCV 87.1 MCH 27.9 MCHC 32.1 RDW 16.3 H Plt Count 72 L D MPV 12.9 H Absolute Nucleated RBC 0.000 Nucleated RBC % (auto) 0.0 Sodium Potassium Chloride Carbon Dioxide Anion Gap BUN Creatinine Estim Creat Clear Calc Estimated GFR POC Glucose 182 H Random Glucose Calcium Urine Color RED Urine Appearance Turbid Urine pH 6.0 Ur Specific [place] 1.010 Urine Protein 100 (2+) H Urine Glucose (UA) 500 H Urine Ketones Negative Urine Blood Large (3+) H Urine Nitrite Negative Ur Leukocyte Esterase Moderate (2+) H Urine RBC >20 H Urine WBC >50 H Ur Squamous Epith Cells 3-5 Urine Bacteria 4+ Hyaline Casts 0-2 Blood Type Antibody Screen Crossmatch 10/03/22 10/03/22 11:17 Unknown WBC RBC Hgb Hct MCV MCH MCHC RDW Plt Count MPV Absolute Nucleated RBC Nucleated RBC % (auto) Sodium 135 Potassium 3.8 D Chloride 104 Carbon Dioxide 19 L Anion Gap 16 BUN 61 H Creatinine 3.38 H Estim Creat Clear Calc 17.1 Estimated GFR 18 POC Glucose 151 H Random Glucose 185 H Calcium 8.5 Urine Color Urine Appearance Urine pH Ur Specific [place] Urine Protein Urine Glucose (UA) Urine Ketones Urine Blood Urine Nitrite Ur Leukocyte Esterase Urine RBC Urine WBC Ur Squamous Epith Cells Urine Bacteria Hyaline Casts Blood Type Antibody Screen Crossmatch Microbiology Microbiology Results: Microbiology 09/28/22 09:39 Blood - Venous Blood Culture - Final No growth after 5 days. 09/28/22 09:39 Blood - Venous Blood Culture - Final No growth after 5 days. 09/29/22 Unknown Urine Catheterized - Cao Catheter Urine Culture - Final Pseudomonas aeruginosa 09/26/22 15:07 Blood - Venous Blood Culture - Final Enterococcus faecium 09/26/22 15:07 Blood - Venous Blood Culture - Final Enterococcus faecium 09/21/22 00:25 Blood - Venous Blood Culture - Final Enterococcus faecium 09/21/22 00:19 Blood - Venous Blood Culture - Final Enterococcus faecium Procedures Date of Service Date of Service: 10/03/22 Assessment & Plan Assessment and plan (1) DEON (acute kidney injury): Status: Acute (2) Hyponatremia: Status: Acute (3) CKD (chronic kidney disease) stage 3, GFR 30-59 ml/min: Status: Acute Plan Scr marginally better multifactorial DEON: -acute tubular injury -obstructive uropathy hypotensive earlier blood culture positive for Enterococcus faecium renal US showed bilateral hydronephrosis, left greater than right (similar to previous CT scan from July 2022) urine with microsocpic hematuria raises concern for [place] infectious glomerular disease complement level pending h/o obstructive uropathy CT scan in July had showed??left hydronephrosis and UPJ obstruction, left renal stone and question focal bladder wall thickening along the dome and right lateral bladder wall ? known CKD baseline Scr ~ 2 mg/dl hypovolemic hyponatremia resolved LVEF 55% REC dc IVF Cao follow kidney function and electrolytes Time Spent With Patient Time: Total time managing care of this patient today ____ minutes. Progress Note: Quality Stroke Does the patient have a stroke diagnosis?: No
[2022-10-03 18:12] LABS: Complement C3 87 mg/dL
== END 2022-10-03 14:11 | disposition skilled nursing facility (03) | DRG 474 ==
LOC: HO.ED 09-21 01:26 → HO.EDOVER 09-21 01:28 → HO.S3 09-21 02:14
PROVIDERS: Internal Medicine; Internal Medicine Nephrology; Surgery Vascular Surgery; Admitting Provider Student in an Organized Health Care Education/Training Program; Emergency Provider Student in an Organized Health Care Education/Training Program; PCP Physician Assistant Medical; Visit Provider Internal Medicine
PROC: 0Y6H0Z2 Detachment at Right Lower Leg, Mid, Open Approach (ICD-10-PCS; CPT 27880; principal; 2022-09-24 10:10)
PROC: 02HV33Z Insertion of Infusion Device into Superior Vena Cava, Percutaneous Approach (ICD-10-PCS; principal; 2022-10-02 08:30)
DX: T87.43 Infection of amputation stump, right lower extremity (principal); L89.623 Pressure ulcer of left heel, stage 3; N17.0 Acute kidney failure with tubular necrosis; E11.52 Type 2 diabetes mellitus with diabetic peripheral angiopathy with gangrene; L03.115 Cellulitis of right lower limb; Z16.21 Resistance to vancomycin; R78.81 Bacteremia; E87.1 Hypo-osmolality and hyponatremia; N13.6 Pyonephrosis; Y83.5 Amputation of limb(s) as the cause of abnormal reaction of the patient, or of later complication, without mention of misadventure at the time of the procedure; D63.1 Anemia in chronic kidney disease; E11.65 Type 2 diabetes mellitus with hyperglycemia; C67.9 Malignant neoplasm of bladder, unspecified; E86.1 Hypovolemia; B96.5 Pseudomonas (aeruginosa) (mallei) (pseudomallei) as the cause of diseases classified elsewhere; I95.9 Hypotension, unspecified; R31.0 Gross hematuria; B95.2 Enterococcus as the cause of diseases classified elsewhere; E11.22 Type 2 diabetes mellitus with diabetic chronic kidney disease; Z87.891 Personal history of nicotine dependence; Z79.4 Long term (current) use of insulin; Z79.84 Long term (current) use of oral hypoglycemic drugs; Z79.899 Other long term (current) drug therapy
CPT/HCPCS: 36415; 36573; 76775; 78306; 80048; 80053; 80202; 81001; 81003; 82565; 82947; 83036; 83605; 85014; 85018; 85025; 85027; 85610; 86160; 86850; 86900; 86901; 86920; 87040; 87077; 87086; 87088; 87186; 87205; 88307; 88311; 93306; 97110; 97162; 97530; 99221; 99285; A9521; C1751; C1758; J0131; J0696; J1100; J1642; J1643; J2020; J2370; J2371; J2405; J2795; J3010; J3370; P9016; P9047; Q9957

== ENCOUNTER → 2022-09-21 00:26 | Outpatient (BNV) | payer MEDICARE, SELFPAY | PROVIDERS: Emergency Provider Student in an Organized Health Care Education/Training Program; Visit Provider Student in an Organized Health Care Education/Training Program | DX: N17.9 Acute kidney failure, unspecified (principal); E87.1 Hypo-osmolality and hyponatremia; N18.30 Chronic kidney disease, stage 3 unspecified | CPT/HCPCS: 99222; 99231; 99232; 99239; 99499 ==

== ENCOUNTER → 2022-09-21 01:09 | Outpatient (BNV) | payer MEDICARE, SELFPAY | PROVIDERS: Admitting Provider Student in an Organized Health Care Education/Training Program; Emergency Provider Student in an Organized Health Care Education/Training Program; Visit Provider Surgery Vascular Surgery | DX: Z89.511 Acquired absence of right leg below knee (principal) | CPT/HCPCS: 27880; 99232 ==

== ENCOUNTER 2022-09-21 13:33 | Outpatient (BNV) | payer MEDICARE, SELFPAY | END 2022-09-27 07:00 | PROVIDERS: Admitting Provider Student in an Organized Health Care Education/Training Program; Emergency Provider Student in an Organized Health Care Education/Training Program; PCP Physician Assistant Medical; Visit Provider Internal Medicine Cardiovascular Disease | DX: R78.81 Bacteremia (principal) | CPT/HCPCS: 93306 ==

== ENCOUNTER → 2022-09-21 13:33 | Outpatient (BNV) | payer MEDICARE, SELFPAY | PROVIDERS: Admitting Provider Student in an Organized Health Care Education/Training Program; Emergency Provider Student in an Organized Health Care Education/Training Program; PCP Physician Assistant Medical; Visit Provider Internal Medicine | DX: T14.8XXA Other injury of unspecified body region, initial encounter (principal); Z89.431 Acquired absence of right foot; R78.81 Bacteremia; B95.2 Enterococcus as the cause of diseases classified elsewhere; Z16.21 Resistance to vancomycin | CPT/HCPCS: 99222 ==

== ENCOUNTER → 2022-09-21 13:33 | Outpatient (BNV) | payer MEDICARE, SELFPAY | PROVIDERS: Admitting Provider Student in an Organized Health Care Education/Training Program; Emergency Provider Student in an Organized Health Care Education/Training Program; PCP Physician Assistant Medical; Visit Provider Surgery | DX: L89.623 Pressure ulcer of left heel, stage 3 (principal) | CPT/HCPCS: 99221 ==

== ENCOUNTER 2022-10-08 11:45 | Emergency (ER) | payer MEDICARE, SELFPAY ==
--- NOTE | ~2022-10-08 | XR_ITS ---
EXAMINATION: XR CHEST CLINICAL INFORMATION: Acute AMS COMPARISON: Chest 11/27/2020 TECHNIQUE: AP upright portable view of the chest was obtained. 14:00 FINDINGS: Again noted a dual chamber cardiac pacer with intact leads extending to the level of the right atrium and right ventricle. The leads are somewhat obscured by the overlying cardiac leads. Lung volumes are low. There is a new small left pleural effusion. There is increased streaky opacity in the left upper lobe and left lower lobe is seen with atelectasis and/or pneumonia. Heart size is normal. No acute osseous abnormality. XR/XR chest 1V IMPRESSION: 1. New small left pleural effusion. 2. Left upper lobe and left lower lobe atelectasis and/or pneumonia.
[2022-10-08 12:03] VITALS: BP 115/70; BP 124/63; PULSE 87; PULSE 90; RESP 18; TEMP 36.8; O2SAT 98; BMI 26.3
[2022-10-08 12:17] VITALS: PULSE 87
--- NOTE | 2022-10-08 12:20 | PC.NURSE ---
pt alert to self and place. skin warm pink and dry. respirations even and unlabored. pt coming from [facility] in [place] for an elevated white blood count. pt had right below the knee amputation at [facility] a few weeks ago and [facility] states he has declined since his admission. pt has a midline in the right arm. pt has a loya in place draining bloody urine. pt has skin excoriated across the groin area, scrotum, penis and buttox. pt has a wound on the left heel that was newly redressed this morning at [facility]. pt is paced and is normal sinus on tele.
--- NOTE | 2022-10-08 14:17 | ED_ITS ---
HPI - General Adult General Chief complaint: Recheck/Abnormal Lab/Rx Stated complaint: PAIN S/P RECENT BKA,ABN LABS,?INF FROM ASSIST [facility] Time Seen by Provider: 10/08/22 12:25 Source: patient and EMS Mode of arrival: EMS Limitations: altered mental status History of Present Illness HPI narrative: 82-year-old male presents for evaluation. Patient has a history of chronic kidney disease, peripheral artery disease, hypertension diabetes presents from short term rehabilitation for evaluation of mental status changes, abnormal laboratory testing. Patient underwent an elective right great toe amputation due to nonhealing diabetic foot ulcer. Amputated toes site did not heal as expected anyone underwent a TMA on 09/13/2022. On 09/19/2022, patient was discharged on oral doxycycline to follow-up with vascular. Patient recently was noted to have an Enterococcus faecium bacteremia. Also during recent hospital ization at [facility] on chronic kidney disease. Patient had been on vancomycin but did not tolerate the medication well. Switch to linezolid. Patient presents today because he was having abnormal lab testing as well as reports of altered mental status. Patient is not quite sure why he is here at this time. He does appear to be alert and oriented least times location himself. Related Data Home Medications Medication Instructions Recorded Confirmed simvastatin 40 mg tablet 40 mg PO BEDTIME 03/17/20 10/08/22 blood sugar diagnostic (OneTouch #10 ea 11/11/20 09/03/22 Verio test strips) pantoprazole 20 mg tablet,delayed 20 mg PO DAILY@0630 11/11/20 10/08/22 release cholecalciferol (vitamin D3) 50 50 mcg PO DAILY 07/11/22 10/08/22 mcg (2,000 unit) tablet empagliflozin 10 mg tablet 10 mg PO DAILY 07/11/22 10/08/22 (Jardiance) acetaminophen 325 mg tablet 650 mg PO Q6H PRN Fever Or Pain 09/21/22 10/08/22 bisacodyl 10 mg rectal suppository 10 mg OK DAILY PRN Constipation 09/21/22 10/08/22 magnesium hydroxide 400 mg/5 mL 30 ml PO DAILY PRN Constipation 09/21/22 10/08/22 oral suspension (Milk of Magnesia) sodium phosphates 19 gram-7 118 ml OK DAILY PRN Constipation 09/21/22 10/08/22 gram/118 mL enema (Fleet Enema) sennosides 8.6 mg tablet (senna) 8.6 mg PO DAILY PRN Constipation 10/08/22 10/08/22 Previous Rx's Medication Instructions Recorded doxazosin 4 mg tablet (Cardura) 4 mg PO BEDTIME #30 tabs 08/14/22 finasteride 5 mg tablet 5 mg PO DAILY #30 tabs 08/14/22 metoprolol tartrate 25 mg tablet 12.5 mg PO BID #30 tabs 08/14/22 sodium bicarbonate 650 mg tablet 650 mg PO TID #90 tabs 08/14/22 ferrous sulfate 324 mg (65 mg 324 mg PO BIDWM #60 tabs 09/05/22 iron) tablet,delayed release insulin lispro 100 unit/mL See Protocol subcut QIDACHS #10 mL 09/19/22 subcutaneous solution (Humalog U-100 Insulin) oxycodone 5 mg tablet 5 mg PO Q4H PRN Pain, Severe (Pain 09/19/22 Scale 7-10) #15 tabs linezolid in 5% dextrose in water 600 mg IV Q12H #30 mL 10/03/22 600 mg/300 mL intravenous piggyback (Zyvox) Allergies Allergy/AdvReac Type Severity Reaction Status Date / Time lisinopril [LISINOPRIL] Allergy Severe ANGIOEDEMA Verified 10/08/22 12:17 Review of Systems Review of Systems: CONSTITUTIONAL: Denies weight loss, fever and chills. HEENT: Denies changes in vision and hearing. RESPIRATORY: Denies SOB and cough. CV: Denies palpitations no CP. GI: Denies abdominal pain, nausea, vomiting and diarrhea. : Denies dysuria and urinary frequency. MSK: Denies myalgia and joint pain. SKIN: Denies rash and pruritus. NEUROLOGICAL: Denies headache and syncope. PSYCHIATRIC: Denies recent changes in mood. Denies anxiety and depression. All other ROS are negative unless in HPI PMFSH Past Medical History Medical History Acute osteomyelitis Back pain Bladder cancer CKD (chronic kidney disease) CKD (chronic kidney disease) stage 3, GFR 30-59 ml/min Congestive heart failure with LV diastolic dysfunction, NYHA class 3 Decubitus ulcer, heel Diabetes mellitus Gram-negative bacteremia H/O cardiac pacemaker Heart block History of COVID-19 Hydronephrosis Hyperlipidemia Hypertension Infection of right foot Iron deficiency anemia PAD (peripheral artery disease) Type 2 diabetes mellitus with unspecified complications Ulcer of left heel Ulcer of right 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 Urinary retention VRE bacteremia Surgical History History of atherectomy History of back surgery History of esophagogastroduodenoscopy History of left hip replacement Hx of cataract extraction Hx of colonoscopy Family History Family History Brother Testicular cancer Social History Social History Household Members: Spouse Household Members Other:: 2 Housing: House Do you presently have visiting nurse or other home services: No Alcohol intake: never Patient Tobacco Use Status: Former Tobacco user Quit Date: 15 years Tobacco use type: Cigarette Smoked in Last 30 Days: No Second Hand Smoke Exposure: No Use of substances other than those prescribed or required for medical reasons: No Advance Directives: Yes Advance Directives on File: Yes Advance Directives Date on File: 07/12/22 service: No Current occupational status: retired Physical Exam ED Vital Signs: Vital Signs - 24 hr 10/08/22 12:03 10/08/22 12:17 10/08/22 16:05 Temperature 98.3 F 97.8 F Pulse Rate 87 87 86 Respiratory Rate 18 18 Blood Pressure 124/63 136/69 Pulse Oximetry 98 97 Oxygen Delivery Method Room Air Room Air BMI result Body Mass Index 26.3 GEN: Well developed, no acute distress, alert, oriented HEENT: Normocephalic, atraumatic, normal external ears, nose appears normal, no oropharyngeal edema or exudates Eyes: Normal to appearance Neck: Supple, no lymphadenopathy Respiratory: Talks in complete sentences, no respiratory distress, clear to auscultation bilaterally Cardiovascular: Regular rate and rhythm, no murmurs rubs or gallops Abdomen: Soft, nontender, nondistended, no guarding, no rebound Back: No CVA tenderness Extremities: No clubbing cyanosis or edema, right BKA bandage, left heel bandage Neurologic: No focal neurologic deficits, cranial nerves 2-12 intact, strength is 5/5 bilaterally Skin: No rash Course Course Course Narrative: The workup is complete. Patient has no elevated white blood cell count. He is of normal mental status. He does have a urinary tract infection with an indwelling Cao catheter. Patient was given ceftriaxone. I have recommended continuation is cephalexin for UTI treatment for 7-10 days. Reevaluation(s) Reevaluation #1: Just spoke to . She says patient is currently at a his baseline mental status. She has no acute concerns. Time: 14:45 Medications Administered Discontinued Medications Generic Name Dose Route Start Last Admin Trade Name Freq PRN Reason Stop Dose Admin Sodium Chloride 1,000 mls @ 999 mls/hr 10/08/22 14:00 10/08/22 16:49 Ns IV 10/08/22 15:00 Infused .Q1H1M JIL Infusion Medical Decision Making Medical Decision Making [facility] Narrative: 82-year-old male presents for evaluation of possible altered mental status and elevated white blood cell count. Patient is alert and oriented x2. Has a right BKA, heels and a bandage for chronic decubitus. Patient is otherwise pale- appearing but no acute distress with nonlabored respirations. I was provided with a urinalysis which was not helpful and no additional lab tests were sent with the patient. I will perform routine lab testing including lactic acid, CBC, urinalysis, blood cultures, etc.. We will need to tease out what is going on in address any acute issues as we find out. There is a high likelihood patient will require hospitalization. Differential diagnosis could include laboratory error, sepsis, bacteremia, acute kidney injury, chronic kidney disease, electrolyte abnormality, anemia. Differential Diagnosis Differential Diagnoses: The differential diagnosis associated with the presentation includes (None) Admission/Observation Consideration of admission/observation: Escalation of care including admission/observation considered Lab Data [facility] Lab Attestation statement: I reviewed the patient's lab results. 10/08/22 15:04 10/08/22 15:04 Labs: Lab Results 10/08/22 10/08/22 10/08/22 Range/Units 15:04 15:04 15:04 WBC 7.6 (4.8-10.8) X10*3/uL RBC 2.93 L (4.60-5.80) X10*6/uL Hgb 8.2 L (14.0-18.0) g/dl Hct 25.6 L (42.0-52.0) % MCV 87.4 (80.0-98.0) fL MCH 28.0 (27.0-33.0) pg MCHC 32.0 (31.0-36.0) g/dl RDW 16.7 H (11.0-16.0) % Plt Count 64 L (160-400) X10*3/uL MPV 12.1 (9.4-12.4) fL Immature Gran % (Auto) 0.7 H (0.0-0.4) % Neut % (Auto) 88.2 H (45-73) % Lymph % (Auto) 5.0 L (20-40) % [place] % (Auto) 5.0 (2-11) % Eos % (Auto) 0.8 (0-4) % Baso % (Auto) 0.3 (0-2) % Lymph # (Auto) 0.4 L (1.2-4.9) X10*3/uL [place] # (Auto) 0.4 (0.1-1.2) X10*3/uL Eos # (Auto) 0.1 (0.0-0.4) X10*3/uL Baso # (Auto) 0.0 (0.0-0.2) X10*3/uL Abs Immat Gran (auto) 0.05 H (0.00-0.03) X10*3/uL Absolute Neuts (auto) 6.7 (2.0-8.3) x10*3/uL Absolute Nucleated RBC 0.000 (0.0-0.012) X10*3/uL Nucleated RBC % (auto) 0.0 (0.0-0.2) /100WBC Sodium 131 L (135-145) mmol/L Potassium 4.1 (3.3-5.1) mmol/L Chloride 103 (96-108) mmol/L Carbon Dioxide 19 L (22-29) mmol/L Anion Gap 13 (12-20) BUN 74 H (9-16) mg/dL Creatinine 3.30 H (0.5-1.4) mg/dL Estim Creat Clear Calc 17.5 Estimated GFR 18 Random Glucose 157 H (60-115) mg/dL Lactic Acid 1.9 (0.5-2.0) mmol/L Calcium 8.4 (8.4-10.2) mg/dL Total Bilirubin 0.9 (0.0-1.0) mg/dL AST 30 (5-37) U/L ALT 21 (0-40) U/L Alkaline Phosphatase 105 (39-117) U/L Total Protein 5.8 L (6.5-8.0) g/dL Albumin 2.6 L (3.5-5.0) g/dL Urine Color Urine Appearance Urine pH (5.0-9.0) Ur Specific [place] (1.005-1.025) Urine Protein (Neg-Trace) mg/dL Urine Glucose (UA) (Negative) mg/dL Urine Ketones (Negative) mg/dL Urine Blood (Negative) Urine Nitrite (Negative) Ur Leukocyte Esterase (Negative) Urine RBC (0-2) /HPF Urine WBC (0-5) /HPF Ur Squamous Epith Cells (0-2) /HPF Urine Bacteria (None Seen) Hyaline Casts (0-2) /LPF 10/08/22 Range/Units 15:39 WBC (4.8-10.8) X10*3/uL RBC (4.60-5.80) X10*6/uL Hgb (14.0-18.0) g/dl Hct (42.0-52.0) % MCV (80.0-98.0) fL MCH (27.0-33.0) pg MCHC (31.0-36.0) g/dl RDW (11.0-16.0) % Plt Count (160-400) X10*3/uL MPV (9.4-12.4) fL Immature Gran % (Auto) (0.0-0.4) % Neut % (Auto) (45-73) % Lymph % (Auto) (20-40) % [place] % (Auto) (2-11) % Eos % (Auto) (0-4) % Baso % (Auto) (0-2) % Lymph # (Auto) (1.2-4.9) X10*3/uL [place] # (Auto) (0.1-1.2) X10*3/uL Eos # (Auto) (0.0-0.4) X10*3/uL Baso # (Auto) (0.0-0.2) X10*3/uL Abs Immat Gran (auto) (0.00-0.03) X10*3/uL Absolute Neuts (auto) (2.0-8.3) x10*3/uL Absolute Nucleated RBC (0.0-0.012) X10*3/uL Nucleated RBC % (auto) (0.0-0.2) /100WBC Sodium (135-145) mmol/L Potassium (3.3-5.1) mmol/L Chloride (96-108) mmol/L Carbon Dioxide (22-29) mmol/L Anion Gap (12-20) BUN (9-16) mg/dL Creatinine (0.5-1.4) mg/dL Estim Creat Clear Calc Estimated GFR Random Glucose (60-115) mg/dL Lactic Acid (0.5-2.0) mmol/L Calcium (8.4-10.2) mg/dL Total Bilirubin (0.0-1.0) mg/dL AST (5-37) U/L ALT (0-40) U/L Alkaline Phosphatase (39-117) U/L Total Protein (6.5-8.0) g/dL Albumin (3.5-5.0) g/dL Urine Color Other A Urine Appearance Turbid Urine pH 6.5 (5.0-9.0) Ur Specific [place] 1.010 (1.005-1.025) Urine Protein 300 (3+) H (Neg-Trace) mg/dL Urine Glucose (UA) 500 H (Negative) mg/dL Urine Ketones 15 (Negative) mg/dL Urine Blood Large (3+) H (Negative) Urine Nitrite Positive H (Negative) Ur Leukocyte Esterase Large (3+) H (Negative) Urine RBC >20 H (0-2) /HPF Urine WBC >50 (0-5) /HPF Ur Squamous Epith Cells 0-2 (0-2) /HPF Urine Bacteria 1+ (None Seen) Hyaline Casts 0-2 (0-2) /LPF Independent Interpretation I performed an independent interpretation of an: Plain X-Ray (No acute cardiopulmonary disease) Radiology Impression Discussion of test interpretation with radiology: I have reviewed the ra diologist's reading. External Record Review External record reviewed: Inpatient record Prescription Management I considered prescription management with: Antibiotic Chronic Conditions Patient?s care impacted by: Diabetes Discharge Plan Discharge Clinical Impression: Chronic hyponatremia, CKD (chronic kidney disease), Anemia, normocytic normochromic, Acute lower UTI Patient Disposition: Xfer [facility] Instructions: Urinary Tract Infection in Men (ED), Chronic Kidney Disease (ED), Hyponatremia (ED), Anemia (ED) Additional Instructions: Recommend Cephalexin 500 mg twice daily for 7-10 days to treat UTI Prescriptions: No Action sodium bicarbonate 650 mg Tablet 650 mg PO TID Qty: 90 0RF finasteride 5 mg Tablet 5 mg PO DAILY Qty: 30 0RF metoprolol tartrate 25 mg tablet 12.5 mg PO BID Qty: 30 0RF doxazosin [Cardura] 4 mg tablet 4 mg PO BEDTIME Qty: 30 0RF ferrous sulfate 324 mg (65 mg iron) Tablet,Delayed Release (Dr/Ec) 324 mg PO BIDWM Qty: 60 0RF insulin lispro [Humalog U-100 Insulin] 100 unit/mL Solution See Protocol subcut QIDACHS Qty: 10 0RF Protocol: Insulin Correction Scale Less than or equal to 110 ---- Give (units): 0 111 to 150 Give (units): 0 151 to 200 Give (units): 2 201 to 250 Give (units): 4 251 to 300 Give (units): 6 301 to 350 Give (units): 8 Greater than 350 Give (units): 10 Call MD if Blood Glucose > : 350 oxycodone 5 mg Tablet 5 mg PO Q4H PRN (Reason: Pain, Severe (Pain Scale 7-10)) Qty: 15 0RF Rx Instructions: Partial Fill upon patient request. Jardiance 10 mg tablet 10 mg PO DAILY cholecalciferol (vitamin D3) 50 mcg (2,000 unit) Tablet 50 mcg PO DAILY acetaminophen 325 mg Tablet 650 mg PO Q6H PRN (Reason: Fever Or Pain) magnesium hydroxide [Milk of Magnesia] 400 mg/5 mL Suspension 30 ml PO DAILY PRN (Reason: Constipation) bisacodyl 10 mg Suppository 10 mg OK DAILY PRN (Reason: Constipation) Fleet Enema 19-7 gram/118 mL Enema 118 ml OK DAILY PRN (Reason: Constipation) linezolid in dextrose 5% [Zyvox] 600 mg/300 mL Piggyback 600 mg IV Q12H Qty: 30 0RF sennosides [senna] 8.6 mg Tablet 8.6 mg PO DAILY PRN (Reason: Constipation) simvastatin 40 mg tablet 40 mg PO BEDTIME (DME) OneTouch Verio test strips Strip See Rx Instructions Not Applicable TID Qty: 10 Rx Instructions: As directed pantoprazole 20 mg tablet,delayed release (DR/EC) 20 mg PO DAILY@0630
[2022-10-08] MEDS: 0.9 % Sodium Chloride 1,000 ML 999 ML IV ×2 (14:35→16:49)
--- NOTE | 2022-10-08 14:47 | PHA.MEDREC ---
Pharmacy Consult ? Medication Reconciliation Pharmacy has completed the medication reconciliation. Patient came from [facility] with a medication list. Erendira Mix, BarbaraD
--- NOTE | 2022-10-08 15:10 | PC.NURSE ---
pt found to wet with urine, loya cath leaking all around, spoke to dr tejeda, plan to replace the loya, this rn inserted at 18fr loya cath and no more leaking around the loya cath. pt tolerated the procedure well
[2022-10-08 15:11] LABS: MANUAL DIFF FLAG NO
[2022-10-08 15:14] LABS: Basophils Percent Auto 0.3 % (0-2); Eosinophils Absolute Auto 0.1 X10*3/uL (0.0-0.4); Eosinophils Percent Auto 0.8 % (0-4); Hematocrit 25.6 % (42.0-52.0); Hemoglobin 8.2 g/dl (14.0-18.0); Imm Gran Abs Auto 0.05 X10*3/uL (0.00-0.03); Imm Gran Pct Auto 0.7 % (0.0-0.4); Lymphocytes Absolute Auto 0.4 X10*3/uL (1.2-4.9); Mean Corpuscular Volume 87.4 fL (80.0-98.0); Mean Platelet Volume 12.1 fL (9.4-12.4); Monocytes Absolute Auto 0.4 X10*3/uL (0.1-1.2); Neutrophils Absolute Auto 6.7 x10*3/uL (2.0-8.3); Neutrophils Percent Auto 88.2 % (45-73); Red Blood Count 2.93 X10*6/uL (4.60-5.80); Red Cell Distribution Width 16.7 % (11.0-16.0); White Blood Count 7.6 X10*3/uL (4.8-10.8)
[2022-10-08 15:33] LABS: Lactic Acid 1.9 mmol/L (0.5-2.0)
[2022-10-08 15:36] LABS: Platelet Count 64 X10*3/uL (160-400)
[2022-10-08 15:39] LABS: Creatinine Clr Calc Pharmacy 17.5; Estimated Glomerular Filt Rate 18; Sodium 131 mmol/L (135-145)
[2022-10-08 15:40] LABS: Alanine Aminotransferase 21 U/L (0-40); Albumin Level 2.6 g/dL (3.5-5.0); Alkaline Phosphatase 105 U/L (39-117); Anion Gap 13 (12-20); Aspartate Amino Transferase 30 U/L (5-37); Bilirubin Total 0.9 mg/dL (0.0-1.0); Blood Urea Nitrogen 74 mg/dL (9-16); Calcium 8.4 mg/dL (8.4-10.2); Carbon Dioxide 19 mmol/L (22-29); Chloride 103 mmol/L (96-108); Glucose Random 157 mg/dL (60-115); Potassium 4.1 mmol/L (3.3-5.1); Total Protein 5.8 g/dL (6.5-8.0)
[2022-10-08 15:49] LABS: Appearance Urine Turbid; Color Urine Other; Glucose Urine UA 500 mg/dL (Negative); Leukocyte Esterase Urine Large (3+) (Negative); Nitrite Urine Positive (Negative); PH 6.5 (5.0-9.0); UMIC TRIGGER UACC YES; Urine Blood Large (3+) (Negative); Urine Ketones 15 mg/dL (Negative); Urine Protein 300 (3+) mg/dL (Neg-Trace)
[2022-10-08 15:57] LABS: Bacteria Urine 1+ (None Seen); Hyaline Casts Urine 0-2 /LPF (0-2); RBC Urine >20 /HPF (0-2); Squamous Epithelial Cell Urine 0-2 /HPF (0-2); UACC Culture Trigger YES; WBC Urine >50 /HPF (0-5)
[2022-10-08 16:05] VITALS: BP 136/69; PULSE 86; RESP 18; TEMP 36.6; O2SAT 97
[2022-10-08] MEDS: cefTRIAXone sodium 1 GM in 0.9 % Sodium Chloride 50 ML IV (16:49)
[2022-10-08 17:10] VITALS: BP 128/66; PULSE 87; RESP 16; TEMP 36.6; O2SAT 98
--- NOTE | 2022-10-08 18:13 | PC.NURSE ---
report given to care one nurse in [place].
== END 2022-10-08 18:48 | disposition skilled nursing facility (03) ==
PROVIDERS: Emergency Provider Emergency Medicine
DX: E87.1 Hypo-osmolality and hyponatremia (principal); N39.0 Urinary tract infection, site not specified; B96.5 Pseudomonas (aeruginosa) (mallei) (pseudomallei) as the cause of diseases classified elsewhere; E11.22 Type 2 diabetes mellitus with diabetic chronic kidney disease; I13.0 Hypertensive heart and chronic kidney disease with heart failure and stage 1 through stage 4 chronic kidney disease, or unspecified chronic kidney disease; N18.30 Chronic kidney disease, stage 3 unspecified; I50.30 Unspecified diastolic (congestive) heart failure; D63.1 Anemia in chronic kidney disease; Z95.0 Presence of cardiac pacemaker; Z85.51 Personal history of malignant neoplasm of bladder; Z87.891 Personal history of nicotine dependence; Z79.899 Other long term (current) drug therapy; Z79.4 Long term (current) use of insulin
CPT/HCPCS: 36415; 71045; 80053; 81001; 83605; 85025; 87040; 87086; 87088; 87186; 96361; 96374; 99284; J0696